=== PATIENT | female | born 1975 | race Caucasian/White ===

== ENCOUNTER 2024-05-13 01:08 | Inpatient (IN) | payer OTHER, SELFPAY ==
[2024-05-13] VITALS (17 sets, daily range): BP systolic 162–220; BP diastolic 68–120; PULSE 71–95; RESP 14–23; TEMP 36.3–36.8; O2SAT 96–100; BMI 57.3
--- NOTE | ~2024-05-13 | NM_ITS ---
EXAMINATION: NM lung vent and perfusion DATE: 05/14/2024 14:44 INDICATION: Shortness of breath. TECHNIQUE: 15.2 mCi Xenon-133 was given for ventilation images. 5.4 mCi Tc-99m MAA was administered i ntravenously for perfusion images. Scintigraphic images of the chest were obtained. COMPARISON: Chest single view 05/13/2024, chest CT 05/14/24 FINDINGS: The ventilation images are normal. The perfusion images demonstrate no defects. IMPRESSION: 1. Normal perfusion. Reviewed, dictated and finalized at location A. TH INSURANCE SPECIALIST IMPRESSION: 1. Normal perfusion.
--- NOTE | ~2024-05-13 | CT_ITS ---
EXAMINATION:CT diagnostic chest wo con DATE: 05/14/2024 14:43 INDICATION: Shortness of breath. TECHNIQUE: Computed tomography (CT) of the chest was performed without intravenous contrast. Automate d exposure control and iterative reconstruction technique were employed. The dose-length product (DLP ) was 1034.76 mGy-cm. COMPARISON: None. FINDINGS: There are patchy groundglass and airspace opacities in the upper lobes. A calcified left paris ng nodule is consistent with old granulomatous disease. There is a trace right pleural effusion. The heart size is normal. There is a trace pericardial effusion. There is moderate thoracic spondylosis. IMPRESSION: 1. Patchy groundglass and airspace opacities in the upper lobes, consistent with pneumonia. Reviewed, dictated and finalized at location A. TITATIVE ASSOCIATE IMPRESSION: 1. Patchy groundglass and airspace opacities in the upper lobes, consistent wit h pneumonia.
--- NOTE | ~2024-05-13 | US_ITS ---
EXAMINATION: US pelvic complete DATE: 05/15/2024 10:37 INDICATION: Vaginal bleeding. TECHNIQUE: Multiple transabdominal sonographic images of the pelvis were obtained. COMPARISON: None. FINDINGS: The uterus measures 11.3 x 6.3 x 7.9 cm. There is no free fluid in the pelvis. The endometrial comple x measures 20 mm in thickness. The right ovary measures 4.2 x 3.3 x 3.7 cm. There is a 3.9 cm cyst wi th single thin septation in right ovary, likely a follicular cyst. The left ovary is not visualized. IMPRESSION: 1. Thickened endometrial complex, which may be endometrial hyperplasia or polyp. Reviewed, dictated and finalized at location A. ER MACHINE HAND IMPRESSION: 1. Thickened endometrial complex, which may be endometrial hyperplasia or polyp .
--- NOTE | ~2024-05-13 | US_ITS ---
Renal-Bladder ultrasound Clinical History: Renal failure Technique: Real-time sonographic imaging of the kidneys and urinary bladder was performed. Findings: The right kidney measures 11.4 cm in length and the left kidney measures 11.8 cm. There is no hydronephrosis or renal calculus identified. Renal cortical echogenicity is within normal limits. No renal mass lesion is identified. The urinary bladder is moderately distended at the time of this exam. No intraluminal echoes are iden tified. No abnormal wall thickening is seen. Impression: Unremarkable ultrasound of the kidneys and urinary bladder. Reviewed, dictated and finalized at location . Impression: Unremarkable ultrasound of the kidneys and urinary bladder.
--- NOTE | ~2024-05-13 | US_ITS ---
EXAMINATION: US venous doppler [facility] DATE: 05/13/2024 09:11 INDICATION: Lower limb edema. TECHNIQUE: Grayscale ultrasound images without and with compression and Doppler ultrasound images of the bilateral lower extremity veins were obtained. COMPARISON: None. FINDINGS: The visualized portions of right common femoral vein, profunda (deep) femoral vein, femoral vein, pop liteal vein, peroneal veins, posterior tibial veins, and greater saphenous vein outflow are patent. The visualized portions of left common femoral vein, profunda femoral vein, femoral vein, popliteal v ein, peroneal veins, posterior tibial veins, and greater saphenous vein outflow are patent. IMPRESSION: 1. No deep venous thrombosis. Reviewed, dictated and finalized at location [] ING MACHINE OPERATOR
--- NOTE | ~2024-05-13 | XR_ITS ---
Portable chest x-ray Comparison: None Clinical History: Shortness of breath Findings: Questionable minimal haziness right upper lobe. Left lung clear. Cardiomediastinal silhou ette is mildly prominent. Bones and soft tissues are unremarkable. Impression: Questionable minimal haziness right upper lobe. Correlate for subtle pneumonia. Reviewed, dictated and finalized at [facility]. RVISORY FORESTER Impression: Questionable minimal haziness right upper lobe. Correlate for subtle pneumonia.
--- NOTE | ~2024-05-13 | US_ITS ---
EXAMINATION: US right upper quadrant DATE: 05/15/2024 10:31 INDICATION: Lower extremity edema. Shortness of breath. TECHNIQUE: Multiple grayscale and Doppler ultrasound images of the abdomen were obtained. COMPARISON: None FINDINGS: The visualized portions of the head, body, and tail of the pancreas are normal. The liver i s normal without focal lesion. No liver surface nodularity. There is normal flow in main portal vein. The gallbladder is normal in size. No gallstones or gallbladder wall thickening. The common duct is normal and measures 6 mm. IMPRESSION: 1. Normal right upper quadrant ultrasound. Reviewed, dictated and finalized at location A. CE CAPTAIN PRECINCT
--- NOTE | 2024-05-13 01:20 | ECG_ITS ---
Test Date: 2024-05-13 01:28:28 Measurements Intervals [place] Rate: 91 P: 33 CO: 218 QRS: 24 QRSD: 78 T: 93 QT: 327 QTc: 403 Interpretive Statements SINUS RHYTHM WITH FIRST DEGREE AV BLOCK LOW QRS VOLTAGE IN PRECORDIAL LEADS [QRS DEFLECTION < 1.0 mV IN CHEST LEADS] ANTEROSEPTAL MYOCARDIAL INFARCTION , PROBABLY OLD [40+ ms Q WAVE IN V1-V4] No previous ECG available for comparison Electronically Signed On 05-13-2024 13:58:56 RACK PRODUCTION WORKER by Elroy Díaz M.D.
--- NOTE | 2024-05-13 01:21 | ED_ITS ---
HPI - General Adult General Chief complaint: Shortness of Breath/Dyspnea Stated complaint: sob Time Seen by Provider: 05/13/24 01:14 History of Present Illness HPI narrative: Patient 49-year-old female who presents emergency department chief complaint of shortness of breath. The patient has prior history of chronic kidney disease wear CPAP at home the patient reports that she has been having increasing shortness of breath for the last few days and reports that she has had increasing peripheral edema. Patient is followed by Nephrology at [facility] was called the patient was on her home CPAP discontinued on CPAP EN route to the emergency department the patient was 92% on her home CPAP Related Data Home Medications ?Medication ?Instructions ?Recorded ?Confirmed ?Last Taken ?Type insulin aspart U-100 100 unit/mL 1 sliding scale dose subcut 02/26/21 02/26/21 Unknown History (3 mL) subcutaneous pen (Novolog USEASDIRECTD FlexPen U-100 Insulin aspart) insulin glargine 100 unit/mL (3 20 unit subcut QAM 02/26/21 02/26/21 Unknown History mL) subcutaneous pen (Lantus Solostar U-100 Insulin) insulin lispro 100 unit/mL 1 sliding scale dose subcut 02/26/21 02/26/21 Unknown History subcutaneous half-unit pen USEASDIRECTD (Humalog Thien KwikPen (U-100)) lisinopril 10 mg tablet 10 mg PO DAILY 02/26/21 02/26/21 Unknown History meclizine 25 mg tablet 25 mg PO TID 02/26/21 02/26/21 Unknown History metformin 500 mg tablet 500 mg PO BID 02/26/21 02/26/21 Unknown History multivitamin with iron (Daily 1 tablet PO DAILY 02/26/21 02/26/21 Unknown History Multiple Vitamins with Iron tablet) Allergies Allergy/AdvReac Type Severity Reaction Status Date / Time cephalexin Allergy Mild RASH Verified 05/13/24 01:27 ofloxacin Allergy Mild RASH Verified 05/13/24 01:27 ciprofloxacin Allergy Unknown Hives Verified 05/13/24 01:27 meperidine Allergy Unknown Hives Verified 05/13/24 01:27 morphine Allergy Unknown Hives Verified 05/13/24 01:27 albuterol AdvReac Migraine Verified 05/13/24 01:27 CIPROFLOXACIN HCL Allergy Mild RASH Uncoded 05/13/24 01:27 MEPERIDINE HCL Allergy Unknown Hives Uncoded 05/13/24 01:27 Review of Systems 2 Review of Systems: A 10 system review of systems was completed on the patient and is negative except for what is stated in the HPI. Nursing and ancillary documentation was reviewed. [facility] Past Medical History Medical History Vestibular migraine Family History Family History Other Family history of malignant neoplasm of male breast Social History Social History Smoking status: Never smoker Alcohol intake: never Exam 2 Narrative: GENERAL: Well-appearing, well-nourished, and in mild acute respiratory distress. HEAD: Normocephalic, atraumatic. EYES: PERRLA and EOMI. ENT: Nares clear, no rhinorrhea or epistaxis. Mucous membranes moist. NECK: Supple. CHEST: Clear to auscultation. No respiratory distress. HEART: Regular rate and rhythm. No murmur heard. Normal peripheral pulses. ABDOMEN: Soft, nontender, nondistended, normal active bowel sounds. EXTREMITIES: Normal range of motion. No edema. SKIN: Warm, dry, no rash. NEURO: No focal deficits. Alert and oriented x3. PSYCH: Normal mood and affect. Course Vital Signs Vital signs: Vital Signs Temperature 36.7 C 05/13/24 01:12 Pulse Rate 95 05/13/24 01:12 Respiratory Rate 23 H 05/13/24 01:12 Blood Pressure 220/120 H 05/13/24 01:12 Pulse Oximetry 100 05/13/24 01:12 Oxygen Delivery Room Air 05/13/24 01:12 Temperature 36.7 C 05/13/24 01:12 Pulse Rate 81 05/13/24 02:31 Respiratory Rate 17 05/13/24 02:31 Blood Pressure 186/82 H 05/13/24 02:31 Pulse Oximetry 100 05/13/24 02:31 Oxygen Delivery Room Air 05/13/24 01:12 Medical Decision Making MDM Narrative Medical decision making narrative: Differential diagnosis includes CHF, fluid overload, renal insufficiency, hypertensive urgency Chest x-ray showed cardiomegaly Patient was given IV Lasix in the emergency department patient did not want to do nitroglycerin Her blood pressure has improved from 220/120 down to 188/70 The patient's creatinine was 3.08 Potassium was 4.8 troponin was negative BNP was elevated The patient will be admitted to the hospitalist service Vital Signs Vital Signs: Vital Signs Temperature 36.7 C 05/13/24 01:12 Pulse Rate 95 05/13/24 01:12 Respiratory Rate 23 H 05/13/24 01:12 Blood Pressure 220/120 H 05/13/24 01:12 Pulse Oximetry 100 05/13/24 01:12 Oxygen Delivery Room Air 05/13/24 01:12 Temperature 36.7 C 05/13/24 01:12 Pulse Rate 81 05/13/24 02:31 Respiratory Rate 17 05/13/24 02:31 Blood Pressure 186/82 H 05/13/24 02:31 Pulse Oximetry 100 05/13/24 02:31 Oxygen Delivery Room Air 05/13/24 01:12 Lab Data 05/13/24 01:56 05/13/24 01:56 Labs: Lab Results 05/13/24 Range/Units 01:56 WBC 10.1 H (4.5-10.0) K/mm3 RBC 3.04 L (4.2-5.4) M/mm3 Hgb 9.5 L (12.0-15.0) g/dL Hct 28.5 L (37.0-47.0) % MCV 93.8 (80-100) fl MCH 31.3 (26-34) pg MCHC 33.3 (32-36) g/dl RDW 14.6 H (11.5-14.5) % Plt Count 275 (150-375) k/mm3 MPV 9.9 (7.4-10.4) fl Immature Gran % (Auto) 0.4 (0-0.5) % Neut % (Auto) 72.4 (45.5-73.1) % Lymph % (Auto) 11.9 L (18.3-44.2) % [place] % (Auto) 6.3 (2.6-8.5) % Eos % (Auto) 8.4 H (0-4.4) % Baso % (Auto) 0.6 (0.2-1.2) % Lymph # (Auto) 1.20 (0.9-3.2) K/mm3 [place] # (Auto) 0.6 (0.1-0.6) K/mm3 Eos # (Auto) 0.9 H (0-0.3) K/mm3 Baso # (Auto) 0.1 (0.0-0.1) K/mm3 Abs Immat Gran (auto) 0.04 H (0.00-0.031) K/mm3 Absolute Neuts (auto) 7.3 H (1.3-6.7) K/mm3 Absolute Nucleated RBC 0.000 (0.0-0.012) K/mm3 Nucleated RBC % 0.0 (0.0-0.2) % PT 12.7 (11.1-14.7) Seconds INR 0.9 APTT 24.1 (22.3-36.8) Seconds Sodium 136 L (137-145) mmol/L Potassium 4.8 (3.4-5.0) mmol/L Chloride 102 (98-107) mmol/L Carbon Dioxide 26 (22-30) mmol/L Anion Gap 8 (4-12) mmol/L BUN 45 H (7-17) mg/dL Creatinine 3.08 H (0.7-1.0) mg/dL Estim Creat Clear Calc 30 ml/min Estimated GFR 16 L (59 - ) Glucose 205 H (65-110) mg/dL Lactic Acid 0.6 L (0.7-2.0) mmol/L Calcium 10.1 (8.4-10.2) mg/dL Magnesium 2.3 (1.6-2.3) mg/dL Total Bilirubin 0.3 (0.2-1.3) mg/dL AST 23 (14-36) U/L ALT 21 (6-35) U/L Alkaline Phosphatase 57 (38-126) U/L Troponin I < 0.012 (0.000-0.034) ng/mL NT-Pro-B Natriuret Pep 1520 H (19.9-100) pg/mL Total Protein 7.0 (6.3-8.2) g/dL Albumin 3.3 L (3.5-5.1) g/dL Influenza A (RT-PCR) Negative (Negative) Influenza B (RT-PCR) Negative (Negative) RSV (RT-PCR) Negative (Negative) SARS-CoV-2 RNA (RT-PCR) Negative (Negative) ABG Data ABG results: 05/13/24 01:27 Puncture Site Right radial ABG pH 7.393 ABG pCO2 39.2 ABG pO2 155.8 H ABG PO2/FiO2 Ratio 1.56 ABG HCO3 23.4 ABG O2 Saturation 99.0 ABG O2 Content 13.9 L ABG Base Excess -1.4 A-a Gradient 518.0 Oxyhemoglobin 98.1 Total Hemoglobin 9.8 L O2 Delivery Device Other device O2 Liters/Min Not Reportable FiO2 100 Discharge Plan Discharge Clinical Impression: Edema, peripheral, Dyspnea, Chronic kidney disease Patient Disposition: Still a Patient Condition: Stable Patient Language: Solomon Islander Prescriptions: No Action metformin 500 mg tablet 500 mg PO BID meclizine 25 mg tablet 25 mg PO TID lisinopril 10 mg tablet 10 mg PO DAILY multivitamin with iron [Daily Multiple Vitamins/Iron] Tablet 1 tablet PO DAILY insulin lispro [Humalog Thien KwikPen U-100] 100 unit/mL insulin pen, half- unit 1 sliding scale dose subcut USEASDIRECTD insulin aspart U-100 [Novolog FlexPen U-100 Insulin] 100 unit/mL (3 mL) insulin pen 1 sliding scale dose subcut USEASDIRECTD Lantus Solostar U-100 Insulin 100 unit/mL (3 mL) insulin pen 20 unit subcut QAM hydrocodone-acetaminophen 10-325 mg tablet 1 tablet PO Q8H PRN (Reason: pain) Qty: 84 0RF Follow-up/Referrals: Rocky Spence MD [Primary Care Provider] - Time of Disposition: 03:32
[2024-05-13 01:43] LABS: Base Excess ABG -1.4 mEq/l (+/-2.0); Fractional Inspired Oxygen 100 %; HCO3 ABG 23.4 mEq/l (22.0-26.0); Oxygen Content ABG 13.9 %vol (16.0-22.0); Oxyhemoglobin 98.1 % THb (90.0-100.0); PCO2 ABG 39.2 mmHg (35.0-45.0); PO2 ABG 155.8 mmHg (80.0-100.0); PO2 FiO2 Ratio Arterial Blood 1.56 %; Total Hemoglobin 9.8 g/dL (12.0-18.0); pH ABG 7.393 (7.350-7.450)
--- OUTSIDE RECORDS SUMMARY | 2024-05-13 01:44 | XMS_ITS | Clinical Summary ---
Author Organization [facility] Address [address] [place] [address] Care Team Providers Care Glassware Maker Demonstrator Name Role Phone Teresita Cortez MD Primary Care Provider Source Comments [facility],non-[facility] Affiliates and Associated Physician Practices is amultiple site organization consisting of ambulatory clinics and hospital sitesin [place], [place], [place] and [place]. This disclosure is being madepursuant to the Care Everywhere program and may not contain all information available regarding this patient. Last updated 17.[facility] [employer] Allergies Active Allergy Reactions Criticality Noted Date Comments Cephalexin Rash Medium 12/27/2019 Ciprofloxacin Urticaria High 12/20/2011 Fluoxetine Unknown 12/27/2019 Meperidine Unknown High 12/20/2011 Low blood pressure Medications * Be aware that medications may not be up to date on this document. Alwaysverify current medications with the patient. Medication Sig Dispensed Refills Start Date End Date Status ALPRAZolam (XANAX) 2 MG tablet Take 2 mg by mouth once daily Active amLODIPine (NORVASC) 10 MG tablet Take 10 mg by mouth once daily 08/05/2019 Active meclizine (ANTIVERT) 25 MG tablet Take 50 mg by mouth once daily Active insulin lispro (HUMALOG;ADMELOG) 100 UNIT/ML pen Inject 1 Units subcutaneously 3 times daily Sliding scale 07/07/2019 Active Immunizations Name Administration Dates Next Due INFLUENZA VACCINE, TRIV. (AF LURIA, FLUZONE TRIVALENT; 6MO+) (IIV3) 03/10/2010 INFLUENZA VACCINE 12/06/2019 Td (Adult), 2 Lf Tetanus Toxoid, Adsorbed, Pf Social History Tobacco Use Types Packs/Day Years Used Date Smoking Tobacco: Never Smokeless Tobacco: Never Alcohol Use Standard Drinks/Week Comments Never 0 (1 standard drink = 0.6 oz pur e alcohol) AUDIT-C Answer Date Recorded Q1: How often do you have a drink containing alc ohol? Never 12/27/2019 Average Number of Drinks Not on file 020 Frequency of Binge Drinking Not on file 12/08 Sex and Gender Information Value Date Recorded Sex Assigned at Not on file Gender Identity Not on file Sexual Orientation Not on file Last Filed Vital Signs Vital Sign Reading Time Taken Comments Blood Pressure 175/90 12/27/2019 2:01 PM CDT Pulse 128 12/27/2019 2:01 PM CDT Temperature - - Respiratory Rate - - Oxygen Saturation - - Inhaled Oxygen Concentration - - Weight - - Height 162.6 cm (5' 4 ) 12/27/2019 2:01 PM CDT Body Mass Index - - Plan of Treatment Health Maintenance Due Date Last Done Comments COLOGUARD (AGES 45-75) - COL ON CA SCREENING 1974 COLON MONITORING 1974 COLONOSCOPY - COLON CA SCREENING 1974 CT COLONOGRAPHY - COLON CA SCREENING 1974 Colorectal Cancer Screening 1974 FIT - COLON CA SCREENING 1974 FLEX SIG - COLON CA SCREENING 1974 LIPID TESTING 1974 MAMMOGRAM 1974 MEDICARE AWV 12 MONTHS 1974 PAP SMEAR 1974 HIV SCREENING 1989 HEPATITIS C SCREENING 04/24/1992 HEPATITIS B VACCINE (1 of 3 - 19+ 3-dose series) 1993 DTAP/TDAP/TD VACCINES (1 - Tdap) 03/11/2004 03/10/2004 COVID-19 VACCINE ( - 2023-2 5 season) 2023 INFLUENZA VACCINE (#1) 2023 0, 03/10/2010 DEPRESSION SCREENING 03/10/2024 PNEUMOCOCCAL VACCINE 50+ (1 of 1 - PCV) 2024 ZOSTER VACCINE (1 of 2) 2024 HIB VACCINE Aged Out No longer eligi ble based on patient's age to complete this topic HPV VACCINE Aged Out No longer eligi ble based on patient's age to complete this topic MENINGOCOCCAL (Group B) VACCINE Aged Out No longer eligible b ased on patient's age to complete this topic MENINGOCOCCAL VACCINE Aged Out No constance shanna eligible based on patient's age to complete this topic PNEUMOCOCCAL VACCINE Aged Out No long er eligible based on patient's age to complete this topic Care Teams Glassware Maker Demonstrator Relationship Specialty Start Date End Date Teresita Cortez MD [address] [facility] [address] [place] [phone] PCP - General 05/07/19
--- OUTSIDE RECORDS SUMMARY | 2024-05-13 01:44 | XMS_ITS | Patient Health Summary ---
Author Organization [facility] Address [address] [facility] [place] [address] Care Team Providers Care Track Repairer Name Role Phone Teresita Cortez MD Primary Care Provider Note from [facility] [place],non-owned Affiliates and Associated Physician Practices is amultiple site organization consisting of ambulatory clinics and hospital sitesin [place], [place], [place] and [place]. This disclosure is being madepursuant to the Care Everywhere program and may not contain all information available regarding this patient. Last updated 17.[facility] Allergies * Cephalexin(Rash) -Medium Criticality * Ciprofloxacin(Urticaria) -High Criticality * Fluoxetine(Unknown) * Meperidine(Unknown) -High Criticality Medications * Be aware that medications may not be up to date on this document. Alwaysverify current medications with the patient. * ALPRAZolam (XANAX) 2 MG tablet Take 2 mg by mouth once daily * amLODIPine (NORVASC) 10 MG tablet(Started 08/05/2019) Take 10 mg by mouth once daily * meclizine (ANTIVERT) 25 MG tablet Take 50 mg by mouth once daily * insulin lispro (HUMALOG;ADMELOG) 100 UNIT/ML pen(Started 07/07/2019) Inject 1 Units subcutaneously 3 times daily Sliding scale Immunizations * INFLUENZA VACCINE, TRIV. (AFLURIA, FLUZONE TRIVALENT; 6MO+) (IIV3)(Given 03/10/2010) * INFLUENZA VACCINE(Given 12/06/2019) * Td (Adult), 2 Lf Tetanus Toxoid, Adsorbed, Pf(Given 03/10/2004) Social History Tobacco Use Types Packs/Day Years [...] PM CDT Body Mass Index - - Care Teams Track Repairer Relationship Specialty Start Date End Date Teresita Cortez MD [address] [place] [phone] PCP - General 05/07/19
--- OUTSIDE RECORDS SUMMARY | 2024-05-13 01:44 | XMS_ITS | Clinical Summary ---
Author Organization [facility] Address [address] [place] [address] Phone Care Team Providers Care Breakfast Host Name Role Phone Matias Warren MD Primary Care Provider [phone] Allergies Active Allergy Reactions Criticality Noted Date Comments Cephalexin Rash Medium Ciprofloxacin Hives High Ofloxacin Hives High 06/12/2017 Meperidine Unknown High Low blood pressure Morphine Hives Medium 06/12/2017 Medications ALPRAZolam 2 MG Tablet Take 2 mg by mouth 3 times daily as needed. Active amLODIPine (NORVASC) 10 MG Tablet Take 10 mg by mouth daily. Active insulin glargine (LANTUS SOLOSTAR) 100 UNIT/ML Solution Pen-injectorInd ications:Type 2 diabetes mellitus with hyperglycemia, with long-term current use of insulin (HCC) 40 Units by Subcutaneous route every evening. 15 mL 3 8 Active Insulin Pen Needle (PEN NEEDLES) 32G X 5 MM MiscIndications :Type 2 diabetes mellitus with hyperglycemia, with long-term current use of insulin (HCC) 4 times a day 400 Each 3 8 Active insulin aspart (NOVOLOG FLEXPEN) 100 UNIT/ML Solution Pen-injector 14 units before each meal. Correctional factor insulin of 1:20 if > 140 mg/dL. Up to 70 units per day 30 mL 3 8 Active meclizine (ANTIVERT) 25 MG Tablet Take 50 mg by mouth 3 times daily as needed. 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 Dizziness Hepatic steatosis Immunizations Immunization Administration Dates Next Due Influenza Vaccine greater than 3 yrs 03/10/2010 TD VACCINE 03/10/2004 Family History Medical History Relation Name Comments Chronic Obstructive Pulmonary Disease Mother High Cholesterol Mother Hypertension Mother Diabetes Paternal Aunt Diabetes Paternal Grandfather Diabetes Paternal Grandmother Diabetes Paternal Uncle Relation Name Status Comments Mother Paternal Aunt Paternal Grandfather Paternal Grandmother Paternal Uncle Social History Tobacco Use Types Packs/Day Years Used Date Smoking Tobacco: Former Cigarettes Q uit: 06/12/1997 Smokeless Tobacco: Never Tobacco Cessation:Counseling Given: No Alcohol Use Standard Drinks/Week Comments No 0 (1 standard drink = 0.6 oz pur e alcohol) Comments No Sex and Gender Information Value Date Recorded Sex Assigned at Not on file Legal Sex Female 11:21 PM CDT Gender Identity Not on file Sexual Orientation Not on file Last Filed Vital Signs Vital Sign Reading Time Taken Comments Blood Pressure 165/91 06/08/2018 8:21 PM CDT Pulse 99 06/08/2018 8:21 PM CDT Temperature 36.9 C (98.4 F) 06/08/2018 4:44 PM CDT Respiratory Rate 13 06/08/2018 8:21 PM CDT Oxygen Saturation 98% 06/08/2018 8:21 PM CDT Inhaled Oxygen Concentration - - Weight 136.5 kg (301 lb) 06/08/2018 4:44 PM CDT Height 162.6 cm (5' 4 ) 06/08/2018 4:44 PM CDT Body Mass Index 51.67 06/08/2018 4:44 PM CDT Plan of Treatment Health Maintenance Due Date Last Done Comments Diabetes: Eye Exam 1974 Diabetes: Foot Exam 1974 Hepatitis C Virus (HCV) Screening 1974 Mammogram 1974 Pneumococcal Immunization (50+ years) (1 of 2 - PCV) 1993 Pneumococcal Immunization Combined (1 of 2 - PCV) 1993 Pap Smear 1995 Cervical Cancer Screening (CCS) 2004 HPV/Cotest 2004 Discussion re Starting/Frequency of Mammograms 2014 Hepatitis B Immunization (2 of 3 - 19+ 3-dose series) 11/07/2014 10/10/2014 Diabetes: Hemoglobin A1c 04/17/2019 019, 06/12/2017, 02/08/2017, Additional history exists Colonoscopy 2019 Colorectal Cancer Screening 2019 Diabetes: Nephropathy Screening 10/16/2019 10/15/2018, 02/08/2017, 01/17/2017 Influenza Immunization (#1) 11/09/202312/09, 12/03/2019, 02/06/2018, Additional history exists SARS-COV-2 Immunization (2023- season) 2023 06/09/2020, 05/12/2020 Cologuard 2024 Immunochemical Fecal Occult Blood 2024 Zoster Immunization (1 of 2) 2024 Respiratory Syncytial Virus (RSV) Immunization (Adult) (1 - 1-dose 75+ series) 2049 TdaP Immunization Completed 10/10/2014 DTaP/Tdap/Td Immunization Discontinued 2014, 10/10/2014, 03/10/2004 Meningococcal Immunization (ACWY) Aged Out No longer eligible based on patient's age to complete this topic Rotavirus Immunization Aged Out No lo nger eligible based on patient's age to complete this topic Procedures Procedure Name Priority Date/Time Associated Diagnosis Comments CMP (COMPREHENSIVE METABOLIC PANEL) Routine 10/15/2018 HEMOGLOBIN, A1C Routine 10/15/2018 from Last 3 Months or Most Recently Relevant to Health Maintenance Results * HEMOGLOBIN, A1C (10/15/2018) HGB-A1C 11.3 % Blood specimen (specimen) 10/15/2018 us Kandace Trinh MD CHEMISTRY ORDERABLES Edited Resu lt - Final * CMP (COMPREHENSIVE METABOLIC PANEL) (10/15/2018) Blood specimen (specimen) us Too Al PAC CHEMISTRY ORDERABLES Final Re sult from Last 3 Months or Most Recently Relevant to Health Maintenance Insurance MEDICARE [facility] [place] Care Teams Breakfast Host Relationship Specialty Start Date End Date Matias Warren MD [address] [place] [phone] PCP - General Family Medicine 07/09/23
--- OUTSIDE RECORDS SUMMARY | 2024-05-13 01:44 | XMS_ITS | CONTINUITY OF CARE DOCUMENT ---
Author Name cecilia brooks Address Unknown Organization [facility] Address [address] [address] [address] [place] [address] Phone [phone] Care Team Providers Care Corncob Pipes Assembler Name Role Phone Hal Rivera MD Unavailable Hal Rivera MD Unavailable [phone] TOM LILLY MD Unavailable PROBLEMS Condition Status Date Provider Notes Hypoalbuminemia active Hal Rivera MD Venous insufficiency active Hal London Renal atrophy, left active Hal Rivera MD HTN WHITE COAT;LABS OK 2009 completed 2009 - Primo Hanks NP OBESITY active Primo Hanks NP DIABETES MELLITUS active Hal Rivera MD DYSPNEA ON EXERTION completed - Hal Rivera MD DIZZINESS;WILL BROWNE completed - Hal Rivera MD ANEMIA, IRON DEFICIENCY active Primo coe NP Hyperlipidemia;with high crp and low lpa active Leyla Ventimiglia DIRECTOR OF TRAINING DID NOT GIOVANNA STATIN TUBAL LIGATION STERILIZATION STATUS completed - Primo Hanks NP ANGINA PECTORIS;WILL NUCLEAR completed 201 - Primo Hanks NP SLEEP APNEA active Primo Hanks NP ANXIETY DISORDER completed - Primo Hanks NP UPPER RESPIRATORY INFECTION, ACUTE completed - Primo Hanks PROGRAM CHECKER Hypertension;neg duplex active Hal lundberg MD Anasarca completed - Hal Rivera MD Vitamin D deficiency active Primo Hanks PROGRAM CHECKER Screening active Hal Rivera MD Renal disease, chronic, mild;neg us and renal angio active Hal Rivera MD Microalbuminuria active Hal Rivera MD Folate-deficiency active Hal Rivera MD B12 deficiency active Hal Rivera MD covid 19;2020;HAD VACCINE active Hal sullivan MD Hypertriglyceridemia active Leyla Saulmiandrew DIRECTOR OF TRAINING VASCA[A NOT COVRED CAD;NEG CAROTID active Hal Rivera MD Elevated LFT's active Hal Rivera MD Diastolic CHF active Hal Rivera MD Pulmonary hypertension active Hal Rivera MD Chronic back pain active Leyla barlow DIRECTOR OF TRAINING ENCOUNTERS Date Type Provider Location Encounter Diag nosis 3 - 3 In-person encounter Office Visit Hal Rivera MD [facility] Hyperlipidemia;with high crp and low lpaHypertriglyceridemiaChronic back pain 1 - 1 In-person encounter Office Visit Hal Rivera MD [facility] Renal disease, chronic, mild;neg us and renal angioCAD;NEG CAROTIDElevated LFT'sDiastolic CHFPulmonary hypertension 8 - 8 In-person encounter Office Visit Hal Rivera MD [facility] 9 - 1 In-person encounter Office Visit Eyad Miramontes MD [facility] 0 - 0 In-person encounter Office Visit Hal Rivera MD [facility] ScreeningRenal disease, chronic, mild;neg us and renal angiocovid ;HAD VACCINE 1 - 1 In-person encounter Office Visit Hal Rivera MD [facility] DYSPNEA ON EXERTIONDIZZINESS;WILL WUAnasarcaRenal disease, chronic, mild;neg us and renal angioMicroalbuminuriaFolate-defici encyB12 deficiency 6 - 7 In-person encounter Office Visit Hal Rivera MD [facility] HTN WHITE COAT;LABS OK 2010OBESITYANEMIA, IRON DEFICIENCYTUBAL LIGATION STERILIZATION STATUSANGINA PECTORIS;WILL NUCLEARSLEEP APNEAANXIETY DISORDERUPPER RESPIRATORY INFECTION, ACUTEHypertension;neg duplexVitamin D deficiency 3 - 9 In-person encounter Office Visit [facility] Office 4 - 0 In-person encounter Office Visit [facility] Office 5 - 9 In-person encounter Office Visit [facility] Office 7 - 3 In-person encounter Office Visit [facility] Office 4 - 4 In-person encounter Office Visit Hal Rivera MD [facility] OBESITYDIABETES MELLITUSDYSPNEA ON EXERTIONANEMIA, IRON DEFICIENCYHyperlipidemia;with high crp and low lpaSLEEP APNEA VITAL SIGNS Date Observation Value Provider Body Mass Index (Ratio) 54.20 kg/m2 Luli Rivera MD respiratory rate E&M 16 /min Leyla Ventimiglia DIRECTOR OF TRAINING blood pressure, diastolic 80 mm[Hg] Or ryan [place] blood pressure, systolic 168 mm[Hg] Gaby dubois [place] oxygen saturation, oximetry 96 % [facility] pulse rate 85 /min [facility] blood pressure, cuff size regular Or ryan [place] weight E&M 315.8 [lb_av] Orryan Cohn height E&M 64 [in_i] [facility] Body Mass Index (Ratio) 54.92 kg/m2 Luli Rivera MD weight E&M 320 [lb_av] Hal London pulse rate 78 /min [place] blood pressure, diastolic 82 mm[Hg] An nnamdi blood pressure, systolic 163 mm[Hg] Any a oxygen saturation, oximetry 97 % [place] blood pressure, cuff size large An height E&M 64 [in_i] [place] Body Mass Index (Ratio) 53.38 kg/m2 Luli Rivera MD blood pressure, diastolic 56 mm[Hg] An nnamdi blood pressure, systolic 133 mm[Hg] Any a oxygen saturation, oximetry 97 % [place] weight E&M 311 [lb_av] [place] blood pressure, cuff size large An nnamdi height E&M 64 [in_i] [place] Body Mass Index (Ratio) 52.35 kg/m2 Lynn Miramontes MD blood pressure, diastolic 66 mm[Hg] An blood pressure, systolic 150 mm[Hg] Any a pulse rate 81 /min [place] oxygen saturation, oximetry 96 % [place] weight E&M 305 [lb_av] [place] blood pressure, cuff size large An height E&M 64 [in_i] [place] Body Mass Index (Ratio) 51.49 kg/m2 Luli dakotah Rivera MD blood pressure, cuff size large Ke rri Campbelluenegurpreet blood pressure, diastolic 76 mm[Hg] Ke rri Campbelluenenfelddiana blood pressure, systolic 130 mm[Hg] Callum Stock oxygen saturation, oximetry 98 % Gris Stock respiratory rate E&M 12 /min Gris beyelder pulse rate 84 /min Gris Laureano lder weight E&M 300 [lb_av] Gris Laureano er height E&M 64 [in_i] Gris Swartze [facility] Body Mass Index (Ratio) 54.41 kg/m2 Luli Rivera MD weight E&M 317 [lb_av] [place] Castillo blood pressure, diastolic 87 mm[Hg] Karissa nnamdi [place] blood pressure, systolic 169 mm[Hg] Roxanne toño Castillo pulse rate 79 /min [place] Castillo blood pressure, cuff size large An nnamdi Castillo height E&M 64 [in_i] [place] Castillo oxygen saturation, oximetry 96 % [place] Castillo Body Mass Index (Ratio) 56.98 kg/m2 Luli Rivera MD blood pressure, cuff size large Ri rogelio Adalid blood pressure, diastolic 95 mm[Hg] Ri rogelio [place] blood pressure, systolic 183 mm[Hg] Car hermelinda [place] oxygen saturation, oximetry 99 % Latoya [place] respiratory rate E&M 16 /min Becky [place] pulse rate 100 /min Latoya Cabral son weight E&M 332 [lb_av] Latoya Cabral son height E&M 64 [in_i] Latoya Cabral son blood pressure, diastolic 98 mm[Hg] Cate benson O'[place] blood pressure, systolic 137 mm[Hg] Lucrecia ribeiro O'Adam pulse rate 100 /min Chyna O'Adam oxygen saturation, oximetry 98 % Chyna Eng respiratory rate E&M 18 /min Chyna Mon'Adam weight E&M 308 [lb_av] Chyna Eng ALLERGIES Allergy Name Onset Date Reaction Criticality Status OZEMPIC (0.25 OR 0.5 MG/DOSE) Low Cr iticality active AVAPRO high k despe veltsa Low Criticality active KERENDIA highk despred veltsa High Criticalit y active DEMEROL High Criticality active MORPHINE SULFATE High Criticality ac tive CEPHALEXIN High Criticality active CIPRO High Criticality active RESULTS Date Observation Value Provider Reference Range Interpretation Location ferritin, serum 5 ng/mL [facility] 16-232 Low NT-pro BNP 185 [facility] Normal iron saturation percent, serum 14 % ([facility]) [facility] 16-45 Low iron binding capacity, total 321 MCG/DL ([facility]) [facility] 250-450 Normal iron, serum 46 ug/dL [facility] 40-190 Normal HISTORY OF MEDICATION USE Medication Status Instructions Dates Provider Indications Com ments Veltassa 16.8 gram powder in packet active Drink 1 packet dissolved in water once a day mix with 1/3 cup of water and drink daily Hal Gutierrez 25.2 gram powder in packet completed Drink 1 packet dissolved in water once a day mix with 1/3 cup of water and drink daily - Hal Cannon 2.5 mg/0.5 mL pen injector active Inject 1 pen injector subcutaneously once a week Leyla Ventimiglia DIRECTOR OF TRAINING torsemide 10 mg tablet active Leyla Ventimiglia DIRECTOR OF TRAINING torsemide 20 mg tablet active Leyla Ventimiglia DIRECTOR OF TRAINING Zetia 10 mg tablet active TAKE 1 TABLET BY MOUTH EVERY DAY Leyla Ventimiglia DIRECTOR OF TRAINING Soaanz 40 mg tablet active 1 tablet by mouth every morning Hal Rivera MD metolazone 2.5 mg tablet active as needed as directed TAKE 1 TABLET BY MOUTH EVERY DAY prn Leyla DAMICOP Pavelaglsonja Bello U-100 Insulin 100 unit/mL (3 mL) insulin pen active Hal Rivera MD Veltassa 25.2 gram powder in packet completed Drink 1 packet dissolved in water once a day mix with 1/3 cup of water and drink daily - Leylaharleen DAMICOP Vascepa 1 gram capsule completed Take 2 capsule by mouth twice a day - [facility] Nexlizet 180-10 mg tablet completed Take 1 tablet by mouth once a day - Leylaharleen [facility] DAMICOP Kerendia 20 mg tablet completed TAKE 1 TABLET BY MOUTH ONCE A DAY - Hal Rivera MD Ozempic 0.25 mg or 0.5 mg (2 mg/3 mL) pen injector completed Inject 0.5 mg subcutaneously once a week for 4 weeks, if tolerated may increase dose. - Leyla DAMICOP DIABETES MELLITUS Veltassa 16.8 gram powder in packet completed Drink 1 packet dissolved in water once a day mix with 1/3 cup of water and drink daily - Hal Rivear MD ezetimibe 10 mg tablet completed Take 1 tablet by mouth once a day - Hal Rivera MD Veltassa 8.4 gram powder in packet completed Drink 1 packet dissolved in water once a day mix with 1/3 cup of water and drink daily - Hal Rivera MD Kerendia 10 mg tablet completed Take 1 tablet by mouth once a day - Hal Rivera MD rosuvastatin 20 mg tablet completed Take 1 tablet by mouth once a day - Leyla Sarina [facility] aspirin 81 mg tablet,chewable active Take 1 tablet by mouth once a day Hal Rivera MD cyanocobalamin (vitamin B-12) 1,000 mcg capsule active TAKE 1 CAPSULE BY MOUTH EVERY DAY [facility] ergocalciferol (vitamin D2) 1,250 mcg (50,000 unit) capsule active Take 1 capsule by mouth once a week [facility] torsemide 40 mg tablet completed every morning - Hal Rivera MD folic acid 1 mg tablet active Hal Rivera MD Trulicity 1.5 mg/0.5 mL pen injector completed Inject 1 pen injector subcutaneously once a week - Hal Rivera MD DIABETES MELLITUS Trulicity 0.75 mg/0.5 mL pen injector completed Inject 1 pen injector subcutaneously once a week - Hal Rivera MD DIABETES MELLITUS iron 325 mg (65 mg iron) tablet active Take 1 tablet by mouth once a day Hal Rivera MD B Complex-Vitamin B12 tablet completed Take 1 tablet by mouth once a day - Hal Rivera MD rosuvastatin 20 mg tablet completed Take 1 tablet by mouth once a day - Hal Rivera MD ezetimibe 10 mg tablet completed Take 1 tablet by mouth once a day - Hal Rivera MD carvedilol 25 mg tablet active Take 1 tablet by mouth twice a day Hal Rivera MD Jardiance 25 mg tablet active TAKE 1 TABLET BY MOUTH ONCE DAILY [facility] Ozempic 0.25 mg or 0.5 mg(2 mg/1.5 mL) pen injector completed Inject 1/2 mg subcutaneously once a week - Karena Hopkins Kerendia 10 mg tablet completed Take 1 tablet by mouth once a day - Hal Rivera MD cholecalciferol (vitamin D3) 1,250 mcg (50,000 unit) capsule completed Take 1 capsule by mouth once a week - Hal Rivera MD diazepam 10 mg tablet active Primo Hanks NP irbesartan 300 mg tablet completed 1 tablet by mouth once a day - Hal Rivera MD amlodipine 10 mg tablet active 1 tablet by mouth once a day Primo Hanks NP Humalog KwikPen Insulin 100 unit/mL insulin pen completed INJECT 2-20 UNITS UNDER THE SKIN THREE TIMES A DAY BEFORE MEALS - Hal Rivera MD Lantus U-100 Insulin 100 unit/mL solution completed - Primo Hanks NP Zithromax Z-Boogie 250 mg tablet completed 2 tabs 1st day then one tab daily - Primo Hanks NP Feosol 325 mg (65 mg iron) tablet completed 1 tablet once a day - Primo Hanks NP Altace 5 mg capsule completed 1 tablet once a day - Primo Hanks NP PRAVACHOL 40 MG ORAL TABLET completed 1 tablet once a day - Primo Hanks NP ASPIRIN 81 MG ORAL TABLET completed 1 tablet once a day - Hal Rivera MD ANTIVERT 12.5 MG TABS completed 1 tablet by mouth once a day - Hal Rivera MD GNP WOMENS ONE DAILY ORAL TABLET completed 1 tablet by mouth once a day - Primo Hanks NP SOCIAL HISTORY Date Observation Value Provider personal history of marijuana use no Leyla Ventimiglia [facility] drug use no Leyla Ventimig desiree [facility] alcohol use no Leyla Ventimig desiree [facility] smoking status Former smoker Leyla Venti miglia [facility] smoking status Former smoker [place] Stoll s smoking status Former smoker [place] Stoll s number of grandchildren Eyad Leon NP smoking status Former smoker [place] Stoll s social history E&M S moking History: Estrella jarvis is a former smoker. Hal Rivera MD social history reviewed E&M revi ewed - no changes required Hal Rivera MD physical exercise, frequency, days per week no [place] Castillo caffeine use, averag e drinks per day no [place] Castillo smoking status Former smoker [place] Stoll s social history reviewed E&M revi ewed - no changes required Primo Hanks NP social history E&M S moking History: Estrella jarvis is a former smoker. Primo Hanks NP physical exercise, frequency, days per week no Latoya Cordoba caffeine use, averag e drinks per day no Latoya [place] smoking status Former smoker Latoya Chapin munoz smoking status former smoker Gris Harden [facility] physical exercise, frequency, days per week no [facility] caffeine use, averag e drinks per day no [facility] alcohol use, average drinks per day none [facility] number of years as a smoker less than 10 years [facility] smoking status Quit [facility] FUNCTIONAL STATUS Date Observation Value Provider HRA, CV Assess/Plan, Angina (inactive) Management Plan continue current therapy Leyla SCHAFER HRA, CV Assess/Plan, Angina (inactive) Management Plan continue current therapy Hal Rivera MD HRA, CV Assess/Plan, Angina (inactive) Management Plan continue current therapy Hal Rivera MD HRA, CV Assess/Plan, Angina (inactive) Management Plan antianginal therapy Angela Leon NP HRA, CV Assess/Plan, Angina (inactive) Management Plan continue current therapy Primo Hanks NP MENTAL STATUS Date Observation Value Provider assessment of judgme nt and insight E&M Alert and oriented to time, place and person. Mood and affect are normal. Hal Rivera MD INSURANCE PROVIDERS Payer name Policy type / Coverage type [employer] party ID [facility] [id number] ADVANCE DIRECTIVES Name Date DISCUSSED - NO DECISION MADE TREATMENT PLAN Date Name Performer [id number],C,s core 54, neg stres in 05 and nuc in 11 Hal Rivera MD [id number],C,34 Hal sullivan MD [id number],S, 9 .4 Hal Rivera MD [id number],S, Hal lundberg MD [id number],S, 3 70 Hal Rivera MD [id number],B, Hal lundberg MD [id number],B, Hal lundberg MD [id number],C,N EEDS COLONS S he is anemic and has a hx of iron deficiency. Her anemia is microcytic and I suspect that she is iron deficient again given her recent vegetarian diet. I will check an iron panel and she will take PO iron for now as well as vitamin B12. She may need IV iron infusions as well. Hal Rivera MD [id number],S,n eg echo, neg aaa n eg pro, heg holter, neg brai ct n eg stres 05, neg carotdi duples n eg nuc 11 Hal Rivera MD [id number],B,3 6 2 5 Hal Rivera MD [id number],S, H er updated medication list for this problem includes: Aspirin 81 Mg Tablet,chewable (Aspirin) ..... Take 1 tablet by mouth once a day Carvedilol 25 Mg Tablet (Carvedilol) ..... Take 1 tablet by mouth twice a day Torsemide 5 Mg Tablet (Torsemide) Irbesartan 300 Mg Tablet (Irbesartan) ..... 1 tablet by mouth once a day Amlodipine 10 Mg Tablet (Amlodipine) ..... 1 tablet by mouth once a day BP today: 130/76 P rior BP: 169/87 (11/07/2022) Hal Rivera MD [id number],S, Hal lundberg MD [id number],S, C ontinue CPAP use. Hal Rivera MD [id number],S, Hal Serot toño MEMBR[place] [id number],S, Hal Serot a [id number],S,370 Hal luis MD [id number],S,some day will need col Hal Rivera MD [id number],S,9.4 Hal luis MD [id number],S,25 Hal sullivan MD [id number],B, n m pro Hal Rivera MD [id number],S, n m pro Hal Nicole MEMBRENO [id number],S,n eg pro, heg holter, neg brai ct n eg stres 05, neg carotdi duples n eg nuc 11 Hal Rivera MD [id number],C,nm pro Hal Rivera MD [id number],C,neg stres 05, neg carotdi duples Hal Rivera MD [id number],C,Continue CPAP use. Primo Duboiscarolin PROGRAM CHECKER [id number],C,T he patient has severe vitamin D deficiency. I will start vitamin D 50,000 units per week. Primo Roncarolin PROGRAM CHECKER [id number],C,S he is anemic and has a hx of iron deficiency. Her anemia is microcytic and I suspect that she is iron deficient again given her recent vegetarian diet. I will check an iron panel and she will take PO iron for now as well as vitamin B12. She may need IV iron infusions as well. Primo Hanks PROGRAM CHECKER [id number],C,N ot well controlled. She did not tolerate Metformin in the past due to GI issues. I will add Jardiance 25mg qday as noted above and I will also add Ozempic. She will hopefully be able to decrease and eventually with further medication adjustment, come off insulin entirely. Primo Hanks PROGRAM CHECKER [id number],C,L ipids are significantly elevated. I will add Rosuvastatin 20mg qday and Ezetimibe 10mg qday. Her lipids will also see improvement with better glycemic control. Primo Hanks PROGRAM CHECKER [id number],C,B lood pressure is elevated. I will add Carvedilol 12.5mg BID. I will continue Amlodipine and Irbesartan without change. Diuresis will also improve her blood pressure with Jardiance and Kerendia. I will stop Clonidine as it is short acting and causes rebound hypertension. She will be better served with longer acting medications that are taken routinely. Primo Hanks PROGRAM CHECKER [id number],C,T he patient has generalized anasarca and significant dyspnea on exertion. She had a recent echo that showed normal LV systolic function and mild MR, TR, and pulm htn, all of which I suspect will improve with blood pressure and volume overload improvement. Her albumin is low likely related to vegetarian diet and contributing to her issues. Her diet was purely for weight loss and she is going to resume eating chicken and fish. She has mild CKD as well based on her labs. I am going to check a CXR and I will check a proBNP and a UACR in addition to her recent labs. I am going to add Jardiance 25mg qday and Kerendia 10m qday. Primo Hanks PROGRAM CHECKER Cardiology:patient h as chronic back that limits her ability to walk more than 50 feet at a time. She has now purchased a scOneMorePalletter d/t these mobility issues H ave recommended PT for back pain along with gait and balance training [facility] Cardiology:continue with yelitza sarah stockings [facility] Cardiology:Last Hgb A1C 8% in 08/2023 S he is on insulin alone. Did not tolerate ozempic d/t GI issues S he would benefit from GLP-1 to improve glycemic control and weight management T he following medications were removed from the medication list: Ozempic 0.25 Mg Or 0.5 Mg (2 Mg/3 Ml) Pen Injector (Semaglutide) ..... Inject 0.5 mg subcutaneously once a week for 4 weeks, if tolerated may increase dose. Her updated medication list for this problem includes: Jardiance 25 Mg Tablet (Empagliflozin) ..... Take 1 tablet by mouth once daily Basaglar Kwikpen U-100 Insulin 100 Unit/ml (3 Ml) Insulin Pen (Insulin glargine) Aspirin 81 Mg Tablet,chewable (Aspirin) ..... Take 1 tablet by mouth once a day [facility] Cardiology:The patie nt is using CPAP on a regular basis. The patient has been benefiting from therapy and should continue use. [facility] Cardiology:Remains o n Jardiance A ppears compensated c hronic SOB in setting of obesity w ill update echo prior to next visit H er updated medication list for this problem includes: Torsemide 10 Mg Tablet (Torsemide) Torsemide 20 Mg Tablet (Torsemide) Metolazone 2.5 Mg Tablet (Metolazone) ..... As needed as directed take 1 tablet by mouth every day prn Soaanz 40 Mg Tablet (Torsemide) ..... 1 tablet by mouth every morning Aspirin 81 Mg Tablet,chewable (Aspirin) ..... Take 1 tablet by mouth once a day Carvedilol 25 Mg Tablet (Carvedilol) ..... Take 1 tablet by mouth twice a day Amlodipine 10 Mg Tablet (Amlodipine) ..... 1 tablet by mouth once a day [facility] Cardiology:LDL 112 p atient does not want statin based on intolerance H as been prescribed nexlizet but insurance did not approve. W ill begin zetia T he following medications were removed from the medication list: Vascepa 1 Gram Capsule (Icosapent ethyl) ..... Take 2 capsule by mouth twice a day Rosuvastatin 20 Mg Tablet (Rosuvastatin) ..... Take 1 tablet by mouth once a day Nexlizet 180-10 Mg Tablet (Bempedoic acid-ezetimibe) ..... Take 1 tablet by mouth once a day Her updated medication list for this problem includes: Zetia 10 Mg Tablet (Ezetimibe) ..... Take 1 tablet by mouth every day [facility] Cardiology:BP 168/80 above goal, reports better controlled at 135/70 at home W ill have her monitor and bring readings to her next visit H er updated medication list for this problem includes: Torsemide 10 Mg Tablet (Torsemide) Torsemide 20 Mg Tablet (Torsemide) Metolazone 2.5 Mg Tablet (Metolazone) ..... As needed as directed take 1 tablet by mouth every day prn Soaanz 40 Mg Tablet (Torsemide) ..... 1 tablet by mouth every morning Aspirin 81 Mg Tablet,chewable (Aspirin) ..... Take 1 tablet by mouth once a day Carvedilol 25 Mg Tablet (Carvedilol) ..... Take 1 tablet by mouth twice a day Amlodipine 10 Mg Tablet (Amlodipine) ..... 1 tablet by mouth once a day [facility] Cardiology:on iron and last hgb was 8.6 [facility] Cardiology:on replacement therap y [facility] :neg hep panel Hal Rivera MD :27 Hal Rivera MD Cardiology Hal Rivera MD Cardiology Hal Rivera MD Cardiology: s core 54, neg stres in 05 and nuc in 11 Hal Rivera MD Cardiology: s core 54, neg stres in 05 and nuc in 11 Hal Rivera MD Cardiology:8.5 Hal Rivera MD Cardiology:52 Hal Rivera MD Cardiology:1200 e f 62 Hal Rivera MD Cardiology Hal Rivera MD Cardiology:high ddd and negvq , neg aaa , heg holter, neg brai ct , neg carotdi duples Hal Rivera MD Cardiology Hal Rivera MD Cardiology: N EEDS COLONS Hal Rivera MD Cardiology: 3 12 Hal Rivera MD Cardiology:34 2 7 Hal Rivera MD :27 Hal Rivera MD NEEDS FOALTE LEVEL :30 Hal luis MD :312 Hal Rivera MD :39 Hal Rivera MD Cardiology: C ontinue CPAP use. Hal Rivera MD Cardiology: 3 70 Hal Rivera MD Cardiology Hla Rivera MD Cardiology Hal Rivera MD Cardiology Hal Rivera MD Cardiology:9.4 Hal Rivera MD Cardiology Hal Rivera MD Cardiology: R enal US showed Small left kidney without evidence of nephrolithiasis, hydronephrosis, or solid renal mass. R enal duplex: no renal artery stenosis bilaterally E GFR 34, cr 1.8 CT vs angiogram CO2, to avoid/raduce dye. Explained risks and benefits. p atient would like to proceed with renal angiogram. with CO2 Hal Rivera MD Cardiology: g fr 34 Hal Rivera MD Cardiology: s welling improved with toresemide, still some present. Reports mild pain. V enous duplex shows severe venous insufficiency bilaterally r ecommeded to wear compression stockings and ambulate more Hal Rivera MD Cardiology: s core 54, neg stres in 05 and nuc in 11 Hal Rivera MD Cardiology Hal Rivera MD Cardiology: C ontinue CPAP use. Angelajose Lopezaren PROGRAM CHECKER Cardiology:CRP 6.3 H er updated medication list for this problem includes: Ezetimibe 10 Mg Tablet (Ezetimibe) ..... Take 1 tablet by mouth once a day Rosuvastatin 20 Mg Tablet (Rosuvastatin) ..... Take 1 tablet by mouth once a day Angela Johnluri PROGRAM CHECKER Cardiology: N ARTI LESTERInes S he is anemic and has a hx of iron deficiency. Her anemia is microcytic and I suspect that she is iron deficient again given her recent vegetarian diet. she will take PO iron for now as well as vitamin B12. She may need IV iron infusions as well. planning to consult with torts law professor [facility] Gwenri PROGRAM CHECKER Cardiology: 9 .4 N ot controlled well. Was on ozempic, which controlled her sugars well per pt. s topped due to impaired renal function e ncoraged to resume Angela Johnluri PROGRAM CHECKER Cardiology: 3 [facility]: H er updated medication list for this problem includes: Ezetimibe 10 Mg Tablet (Ezetimibe) ..... Take 1 tablet by mouth once a day Rosuvastatin 20 Mg Tablet (Rosuvastatin) ..... Take 1 tablet by mouth once a day Angela Nalluri PROGRAM CHECKER Cardiology:swelling improved with toresemide, still some present. Reports mild pain. V enous duplex shows severe venous insufficiency bilaterally r ecommeded to wear compression stockings and ambulate more [facility] Johnluri PROGRAM CHECKER Cardiology: s core 54, neg stres in 05 and nuc in 11 [facility] Cardiology:Renal US showed Small left kidney without evidence of nephrolithiasis, hydronephrosis, or solid renal mass. R enal duplex: no renal artery stenosis bilaterally E GFR 34, cr 1.8 C T vs angiogram CO2, to avoid/raduce dye. Explained risks and benefits. p atient would like to proceed with renal angiogram. with CO2 Angela Nalluri PROGRAM CHECKER Cardiology: g fr 34 Angelajose Lopezluri PROGRAM CHECKER :score 54, neg stres in 05 and n uc in 11 Hal Rivera MD :34 Hal Rivera MD Cardiology: 9 .4 Hal Rivera MD Cardiology Hal Rivera MD Cardiology: 3 70 Hal Rivera MD Cardiology Hal Rivera MD Cardiology Hal Rivera MD Cardiology:NEEDS COL ONS S he is anemic and has a hx of iron deficiency. Her anemia is microcytic and I suspect that she is iron deficient again given her recent vegetarian diet. I will check an iron panel and she will take PO iron for now as well as vitamin B12. She may need IV iron infusions as well. Hal Rivera MD Cardiology:neg echo, neg aaa n eg pro, heg holter, neg brai ct n eg stres 05, neg carotdi duples n eg nuc 11 Hal Rivera MD Cardiology:36 2 5 Hal Rivera MD Cardiology: H er updated medication list for this problem includes: Aspirin 81 Mg Tablet,chewable (Aspirin) ..... Take 1 tablet by mouth once a day Carvedilol 25 Mg Tablet (Carvedilol) ..... Take 1 tablet by mouth twice a day Torsemide 5 Mg Tablet (Torsemide) Irbesartan 300 Mg Tablet (Irbesartan) ..... 1 tablet by mouth once a day Amlodipine 10 Mg Tablet (Amlodipine) ..... 1 tablet by mouth once a day BP today: 130/76 P rior BP: 169/87 (11/07/2022) Hal Rivera MD Cardiology Hal Rivera MD Cardiology: C ontinue CPAP use. Hal Rivera MD Cardiology Hal Rivera MD Cardiology Hal Rivera MD Cardiology:370 Hal Rivera MD Cardiology:some day will need co l Hal Rivera MD Cardiology:9.4 Hal Rivera MD Cardiology:25 Hal Rivera MD Cardiology: n m pro Hal Rivera MD Cardiology: n m pro Hal Rivera MD Cardiology:neg pro, heg holter, neg brai ct n eg stres 05, neg tavotabdelrahman galvan n eg nuc 11 Hal Rivera MD lmom about iron infusions:nm pro Hal Rivera MD lmom about iron infu sions:neg stres 05, neg carotdi eliasles Hal Rivera MD Cardiology:Continue CPAP use. Sushila Hanks NP Cardiology:The patie nt has severe vitamin D deficiency. I will start vitamin D 50,000 units per week. Primo Hanks NP Cardiology:She is an emic and has a hx of iron deficiency. Her anemia is microcytic and I suspect that she is iron deficient again given her recent vegetarian diet. I will check an iron panel and she will take PO iron for now as well as vitamin B12. She may need IV iron infusions as well. Primo Hanks NP Cardiology:Not well controlled. She did not tolerate Metformin in the past due to GI issues. I will add Jardiance 25mg qday as noted above and I will also add Ozempic. She will hopefully be able to decrease and eventually with further medication adjustment, come off insulin entirely. Primo Hanks NP Cardiology:Lipids ar e significantly elevated. I will add Rosuvastatin 20mg qday and Ezetimibe 10mg qday. Her lipids will also see improvement with better glycemic control. Primo Hanks NP Cardiology:Blood pre ssure is elevated. I will add Carvedilol 12.5mg BID. I will continue Amlodipine and Irbesartan without change. Diuresis will also improve her blood pressure with Jardiance and Kerendia. I will stop Clonidine as it is short acting and causes rebound hypertension. She will be better served with longer acting medications that are taken routinely. Primo Hanks PROGRAM CHECKER Cardiology:The patie nt has generalized anasarca and significant dyspnea on exertion. She had a recent echo that showed normal LV systolic function and mild MR, TR, and pulm htn, all of which I suspect will improve with blood pressure and volume overload improvement. Her albumin is low likely related to vegetarian diet and contributing to her issues. Her diet was purely for weight loss and she is going to resume eating chicken and fish. She has mild CKD as well based on her labs. I am going to check a CXR and I will check a proBNP and a UACR in addition to her recent labs. I am going to add Jardiance 25mg qday and Kerendia 10m qday. Primo Hanks NP follow up Hal Rivera MD follow up: H er updated medication list for this problem includes: Aspirin 81 Mg Tabs (Aspirin) ..... One tab. daily Altace 5 Mg Caps (Ramipril) ..... One tab. daily Hal Rivera MD follow up: H er updated medication list for this problem includes: Pravachol 40 Mg Tabs (Pravastatin sodium) ..... One tab. daily Orders: C omplete Echo (CPT-58273) H olter Monitor 24 Hr (CPT-41011) S pirometry (CPT-25785) S tress Test - Adenosine (47767) Hal Rivera MD follow up: O rders: C omplete Echo (CPT-09618) H olter Monitor 24 Hr (CPT-25014) S pirometry (CPT-49755) S tress Test - Adenosine (46094) Hal Rivera MD follow up: H er updated medication list for this problem includes: Aspirin 81 Mg Tabs (Aspirin) ..... One tab. daily Altace 5 Mg Caps (Ramipril) ..... One tab. daily Orders: C omplete Echo (CPT-08555) H olter Monitor 24 Hr (CPT-58363) S pirometry (CPT-37304) S tress Test - Adenosine (00881) Hal Rivera MD follow up: H er updated medication list for this problem includes: Aspirin 81 Mg Tabs (Aspirin) ..... One tab. daily Altace 5 Mg Caps (Ramipril) ..... One tab. daily Orders: C omplete Echo (CPT-97183) H olter Monitor 24 Hr (CPT-05248) S pirometry (CPT-94237) S tress Test - Adenosine (75942) Hal Rivera MD follow up: H er updated medication list for this problem includes: Aspirin 81 Mg Tabs (Aspirin) ..... One tab. daily Pravachol 40 Mg Tabs (Pravastatin sodium) ..... One tab. daily Altace 5 Mg Caps (Ramipril) ..... One tab. daily Orders: C omplete Echo (CPT-89468) H olter Monitor 24 Hr (CPT-25905) S pirometry (CPT-34875) S tress Test - Adenosine (37349) Hal Rivera MD follow up: H er updated medication list for this problem includes: Aspirin 81 Mg Tabs (Aspirin) ..... One tab. daily Orders: C omplete Echo (CPT-68498) H olter Monitor 24 Hr (CPT-18898) S pirometry (CPT-00586) S tress Test - Adenosine (90918) Hal Rivera MD follow up: O rders: C omplete Echo (CPT-25909) H olter Monitor 24 Hr (CPT-33249) S pirometry (CPT-59190) S tress Test - Adenosine (44626) Hal Rivera MD follow up: O rders: C omplete Echo (CPT-45535) H olter Monitor 24 Hr (CPT-47632) S pirometry (CPT-72445) S tress Test - Adenosine (31605) Hal Rivera MD follow up Hal Rivera MD follow up Hal Rivera MD Date Name Abdominal US Complete Echo ZOLL HFMS (HrtFailrM ngmtSys) Abdominal US Complete Echo HEPATITIS PANEL PROTHROMBIN TIME WIT H INR LIPID PANEL CBC (INCLUDES DIFF/P LT) BASIC METABOLIC PANE L W/EGFR PROTHROMBIN TIME WIT H INR LIPID PANEL CBC (INCLUDES DIFF/P LT) BASIC METABOLIC PANE L W/EGFR PROTHROMBIN TIME WIT H INR LIPID PANEL CBC (INCLUDES DIFF/P LT) BASIC METABOLIC PANE L W/EGFR LIPID PANEL BASIC METABOLIC PANE L W/EGFR Venous Doppler Bilat eral LE - Reflux CRP, high sensitivit y Lipoprotein (a) Stress Cardiac PET-C T CT, Coronary Calcium Score Complete Echo Kidney Ultrasound Renal Artery Duplex CXR- PA/Lat Holter Monitor 48 hr IRON AND TOTAL IRON BINDING CAPACITY FERRITIN Microalb/Creatinine Urine, Random PROBNP, N TERMINAL Stress Test - Adenos ine Spirometry Holter Monitor 24 Hr Complete Echo HISTORY OF PROCEDURES Procedure Date Procedure Name Provider Procedure Notes S tatus EKG Hal Rivera MD complete d CT- Coronary CA score aHl Rivera MD completed EKG Hal Rivera MD complete d ePrescribe - Check t his box if eRx is used TD GREER MD completed EKG Hal Rivera MD complete d
--- OUTSIDE RECORDS SUMMARY | 2024-05-13 01:44 | XMS_ITS | Referral Summary ---
Author Organization [facility] Address [address] [place] [address] Care Team Providers Care Marketing Communications Specialist Name Role Phone Teresita Cortez MD Primary Care Provider Source Comments [facility] Affiliates and Associated Physician Practices is amultiple site organization consisting of ambulatory clinics and hospital sitesin [place], [place], [place] and [place]. This disclosure is being madepursuant to the Care Everywhere program and may not contain all information available regarding this patient. Last updated 17.[facility] Allergies Active Allergy Reactions Criticality Noted Date [...] Mass Index - - Plan of Treatment Not on file Care Teams Marketing Communications Specialist Relationship Specialty Start Date End Date Teresita Cortez MD [address] [place] [address] [address] [place] [address] PCP - General 05/07/19
--- OUTSIDE RECORDS SUMMARY | 2024-05-13 01:44 | XMS_ITS | Referral Summary ---
Author Organization [facility] Address [address] [place] [id number] Care Team Providers Care Pharmacy Graduate Intern Name Role Phone Matias Warren MD Primary Care Provider + [phone] Allergies Active Allergy Reactions Criticality Noted Date Comments Cephalexin Hives Medium 07/26/2014 Ciprofloxacin Dapagliflozin Propanediol Other (See comments) Low 12/24/2021 Fluoxetine Meperidine Morphine Medications amLODIPine (NORVASC) 10 mg tablet take 1 tablet by oral route every day 0 0 6 Active insulin syringe-needle U-100 (INSULIN SYRINGE) 1/2 mL 30 gauge x 07/23 syringe use with insulin x1/day 1 Box 3 5 Active cyanocobalamin (vitamin B-12) 1,000 mcg tablet Take 1 tablet (1,000 mcg total) by mouth daily 3 Active folic acid (FOLVITE) 400 mcg tablet Take 1 tablet (400 mcg total) by mouth daily Active ascorbic acid, vitamin C, 500 mg capsule Take 500 mg by mouth daily Active torsemide (DEMADEX) 5 mg tablet Take 8 tablets (40 mg total) by mouth daily 3 Active Veltassa packet Take 1 packet (16.8 g total) by mouth daily with lunch 4 Active aspirin 81 mg enteric coated tablet Take 1 tablet (81 mg total) by mouth nightly Active Jardiance 25 mg tablet Take 1 tablet (25 mg total) by mouth nightly 4 Active ergocalciferol (VITAMIN D) 50,000 unit capsule Take 1 capsule (50,000 Units total) by mouth once a week On Friday Active Ozempic 0.25 mg or 0.5 mg (2 mg/3 mL) pen injector injection Inject 0.25 mg as directed once a week Friday Active blood-glucose transmitter (Dexcom G6 Transmitter) device Dexcom G6 Transmitter Miscellaneous QTY: 1 each Days: 30 Refills: 2 Written: 03/03/23 Patient Instructions: USE DIRECTED TO CHECK BLOOD SUGAR 3 Active Dexcom G6 Transmitter device USE DIRECTED TO CHECK BLOOD SUGAR 4 Active Dexcom G6 Sensor device as directed 4 Active ferrous sulfate 325 mg (65 mg of elemental iron) tablet Take 1 tablet (325 mg total) by mouth daily with breakfast Active Kerendia 10 mg tablet 20 mg nightly 3 Active guaiFENesin ER (MUCINEX) 600 mg 12 hr tablet Take 1 tablet (600 mg total) by mouth 2 (two) times a day for 3 days 6 tablet 4 Active metOLazone (ZAROXOLYN) 2.5 mg tablet Take 2 tablets (5 mg total) by mouth daily 4 Active insulin lispro (HumaLOG, ADMELOG) 100 unit/mL pen for injection Inject 15 Units under the skin 3 (three) times a day 4 Active BASAGLAR 100 unit/mL (3 mL) pen for injection Inject 20 Units under the skin 2 (two) times a day 4 Active Active Problems Problem Noted Date Diagnosed Date Sepsis, due to unspecified o rganism, unspecified whether acute organ dysfunction present 07/20/2023 Social History Tobacco Use Types Packs/Day Years Used Date Smoking Tobacco: Former Cigarettes - 2015 Smokeless Tobacco: Never Tobacco Cessation:Counseling Given: Not Answered Alcohol Use Standard Drinks/Week Comments No 0 (1 standard drink = 0.6 oz pur e alcohol) [facility] Utilities Answer Date Recorded In the past 12 months has [employer], oil, or water [employer] threatened to shut off services in your home? No 07/23/2023 Social Connection and Isolat ion Panel [NHANES] Answer Date Recorded In a typical week, how many times do you talk on the phone with family, friends, or neighbors? More than three times a week 07/23/2023 How often do you get togethe r with friends or relatives? Once a week 07/23/2023 How often do you attend chur ch or alevism services? Never 07/23/2023 Do you belong to any clubs o r organizations such as hindu groups, unions, fraternal or athletic groups, or school groups? No 07/23/2023 How often do you attend meet ings of the clubs or organizations you belong to? Never 07/23/2023 Are you , , di vorced, , never , or living with a partner? 07/23/2023 Overall Financial Resource Strain (CARDIA) Answe r Date Recorded How hard is it for you to pa y for the very basics like food, housing, medical care, and heating? Not hard at all 07/23/2023 Hunger Vital Sign Answer Date Recorded Within the past 12 months, y ou worried that your food would run out before you got the money to buy more. Never true 07/23/19 24 Within the past 12 months, t he food you bought just didn't last and you didn't have money to get more. Never true 07/23/2023 PRAPARE - Transportation Answer Date Re corded In the past 12 months, has l ack of transportation kept you from medical appointments or from getting medications? No 07/08 In the past 12 months, has l ack of transportation kept you from meetings, work, or from getting things needed for daily living? No 07/23/2023 Housing Stability Vital Sign Answer Christofer e Recorded In the last 12 months, was t here a time when you were not able to pay the mortgage or rent on time? No 07/23/2023 In the last 12 months, how many places have you lived? 1 07/23/2023 In the last 12 months, was t here a time when you did not have a steady place to sleep or slept in a custodial (including now)? No 07/23/2023 Personal Safety Answer Date Recorded Have you ever been in or are you currently in a harmful physical or emotional relationship or is someone making you feel afraid or unsafe? Denies 07/21/2023 Education Answer Date Recorded What is the highest level of school you have completed or the highest degree you have received? Associate degree: occupational, technical, or vocational program 07/23/2023 Comments No Sex and Gender Information Value Date Recorded Sex Assigned at Not on file Legal Sex Female 11:36 AM [employer] Gender Identity Not on file Sexual Orientation Not on file Last Filed Vital Signs Vital Sign Reading Time Taken Comments Blood Pressure 142/70 08/12/2023 1:51 PM CDT Pulse 90 08/12/2023 1:51 PM CDT Temperature 36.7 C (98.1 F) 08/12/2023 1:51 PM CDT Respiratory Rate 18 07/25/2023 7:41 AM CDT Oxygen Saturation 95% 08/12/2023 1:51 PM CDT Inhaled Oxygen Concentration - - Weight 155.9 kg (343 lb 9.6 oz) 08/12/2023 1:51 PM CDT Height 162.6 cm (5' 4 ) 08/12/2023 1:51 PM CDT Body Mass Index 58.98 08/12/2023 1:51 PM CDT Plan of Treatment Not on file Insurance [employer] [facility] MEDICARE [facility] Address: [address] [address] [place] [address] [facility] MEDICARE [facility] MEDICARE [facility] ALLIANCE OPTIONS [facility] Advance Directives For more information, please contact: [phone] * Full Code (Latest Code Status on File) Date Activated Date Inactivated Comments 07/23/2023 3:39 PM 07/25/2023 6:34 PM Care Teams Pharmacy Graduate Intern Relationship Specialty Start Date End Date Matias Warren MD [address] [place] [id number] PCP - General Internal Medicine 07/20/23
--- OUTSIDE RECORDS SUMMARY | 2024-05-13 01:44 | XMS_ITS | Clinical Summary ---
Author Organization [facility] [employer] [facility] [employer] [facility] Address [address] [address] Phone Care Team Providers Care Netbackup Engineer Name Role Phone Matias Warren MD Primary Care Provider [phone] Allergies Active Allergy Reactions Criticality Noted Date Comments Cephalexin Hives,Rash Medium 07/26/2014 Other Reaction(s): Unknown Ciprofloxacin Hives High 12/20/2011 Other Reaction(s): Unknown Dapagliflozin Other (see comments) Low 12/24/2021 Other Reaction(s): yeast vaginitis Fluoxetine Other (see comments) 12/27/2019 Meperidine Other (see comments) High 12/20/2011 Low blood pressure Low blood pressure Meperidine Hcl 07/26/2014 Other Reaction(s): Unknown Morphine Hives Medium 07/26/2014 Other Reaction(s): Unknown Ofloxacin Hives High 06/12/2017 Medications amLODIPine (Norvasc) 10 MG tablet Take 10 mg by mouth 1 (one) time each day 11/21/2015 Active aspirin (ST ALEJANDRO) 81 MG EC tablet Take 81 mg by mouth in the morning. 12/10/2022 Active carvedilol (COREG) 25 MG tablet Take 25 mg by mouth in the morning and 25 mg in the evening. 07/01/2023 Active diazePAM (VALIUM) 10 MG tablet Take 10 mg by mouth in the morning and 10 mg at noon and 10 mg in the evening. 07/14/2023 Active Empagliflozin (Jardiance) 25 MG tablet Take 25 mg by mouth in the morning. 05/21/2023 Active folic acid (FOLVITE) 400 MCG tablet Take 1 mg by mouth in the morning. Active HumaLOG KWIKPEN 100 UNIT/ML solution pen-injector Inject 15 Units under the skin in the morning and 15 Units at noon and 15 Units in the evening. 07/07/2019 Active Veltassa 16.8 g pack Take 16.8 g by mouth in the morning. 05/20/2023 Active torsemide (DEMADEX) 10 MG tablet Take 30 mg by mouth 1 (one) time each day Active Ascorbic Acid (vitamin C) 500 MG tablet Take 500 mg by mouth 1 (one) time each day Active cyanocobalamin (VITAMIN B-12) 1000 MCG tablet Take 1,000 mcg by mouth 1 (one) time each day Active ergocalciferol 1.25 MG (98302 UT) capsule Take 50,000 Units by mouth 1 (one) time per week Active insulin glargine (Basaglar KwikPen) 100 UNIT/ML injection Inject 30 Units under the skin in the morning and 30 Units in the evening. 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 06/30/2023 Hyperlipidemia due to type 2 diabetes mellitus 0 06/30/2023 Overview (08/27/2023): Note: elevated crp Essential hypertension 07/17/2015 Family History Medical History Relation Comments Diabetes Father Diabetes Father's Brother Kidney disease Father's Brother Diabetes Father's Sister Cancer Maternal Grandfather Dementia Maternal Grandfather Heart disease Maternal Grandmother Hypertension Mother Diabetes Paternal Grandfather Diabetes Paternal Grandmother Hypertension Paternal Grandmother Relation Status Comments Father Alive Father's Brother Father's Sister Maternal Grandfather Maternal Grandmother Mother Alive Paternal Grandfather Paternal Grandmother Social History Tobacco Use Types Packs/Day Years Used Date Smoking Tobacco: Former Cigarettes Smokeless Tobacco: Never Tobacco Cessation:Counseling Given: Not Answered Alcohol Use Standard Drinks/Week Comments Never 0 (1 standard drink = 0.6 oz pur e alcohol) Comments Unknown Sex and Gender Information Value Date Recorded Sex Assigned at Not on file Legal Sex Female 1:41 PM EDT Gender Identity Not on file Sexual Orientation Not on file Last Filed Vital Signs Vital Sign Reading Time Taken Comments Blood Pressure 148/78 12/16/2023 4:16 PM CDT Pulse 73 12/16/2023 4:16 PM CDT Temperature 37.2 C (99 F) 12/16/2023 4:16 PM CDT Respiratory Rate 19 12/16/2023 4:16 PM CDT Oxygen Saturation 95% 12/16/2023 4:16 PM CDT Inhaled Oxygen Concentration - - Weight 147 kg (325 lb) 12/16/2023 4:16 PM CDT Height 162.6 cm (5' 4 ) 12/16/2023 4:16 PM CDT Body Mass Index 55.79 12/16/2023 4:16 PM CDT Plan of Treatment Health Maintenance Due Date Last Done Comments Breast Cancer Screening 1974 Pneumococcal Vaccine: Pediat rics (0 to 5 Years) and At-Risk Patients (6 to 64 Years) (1 of 2 - PCV) 1980 Hepatitis B Vaccine (1 of 3 - 19+ 3-dose series) 1993 Colorectal Cancer Screening: Annual FOBT 2023 Colorectal Cancer Screening: Colonoscopy 2023 Colorectal Cancer Screening: Sigmoidoscopy 2023 Diabetes: Ophthalmology Exam 07/26/2023 Diabetes: Pedal Pulse Checked 07/26/2023 Diabetes: Sensory Foot Exam 07/26/2023 Diabetes: Visual Foot Exam 07/26/2023 Diabetes: Hemoglobin A1C 10/21/2023 07/21/2023, 0505/2023 Influenza Vaccine (#1) 2023 12/06/2019 Procedures Procedure Name Priority Date/Time Associated Diagnosis Comments EXT RESULT ENTRY Routine 07/21/2023 from Last 3 Months or Most Recently Relevant to Health Maintenance Results * (ABNORMAL) EXT RESULT ENTRY (07/21/2023) WBC 12.6(A) 3.3 - 10.0 10*3/ML Red Blood Cell Count 3.38 Hemoglobin 9.5(A) 12.0 - 16.0 Hematocrit 29.1(A) 36.0 - 46.0 Platelets 472(A) 150 - 399 10*3/UL MCV 86.1 82.0 - 108.0 Sodium 132(A) 137 - 147 Potassium 5.6(A) 3.4 - 5.5 Chloride 104.0(A) 99.0 - 108.0 Carbon Dioxide 15 mmol/L Anion Gap 13 <=30 MMOL/L Glucose 255(A) 60 - 200 BUN 50(A) 4 - 21 mg/dL Creatinine 2.36(A) 0.50 - 1.10 mg/dL Calcium 8.6(A) 8.7 - 10.7 mg/dL eGFR Non-Afr Salvadorean 25(L) Hemoglobin A1C 8.5(A) 4.0 - 6.0 Glucose, UA 4+ mg/dL Bilirubin, UA Negative Ketones, UA Negative Urine Specific [place] 1.015 Blood, UA 3+ Randy/ul pH, UA 5.5 Protein, UA 3+ mg/dL Urobilinogen, UA 2.0 Nitrite, UA Negative Leukocytes, UA Negative WBC, Urine 5-10(A) None Seen, Occasional, 0-2 /HPF RBC, Urine >50(A) None Seen, Occasional, 1-5 /HPF Epithelial Cells in Urine 1-5 /HPF Bacteria, Urine Few(A) None Seen, Occasional /HPF Casts 1-5 Rheumatoid Factor 14 CRP 131.6(H) mg/L Sed Rate 110(H) 07/21/2023 Historical Provider LAB BLOOD ORDERABLES Mirna l Result from Last 3 Months or Most Recently Relevant to Health Maintenance Insurance MEDICARE [facility] Care Teams Netbackup Engineer Relationship Specialty Start Date End Date Matias Warren MD [address] [place], [place] [id number] PCP - General Internal Medicine 07/24/23
--- OUTSIDE RECORDS SUMMARY | 2024-05-13 01:44 | XMS_ITS | Clinical Summary ---
Author Organization [facility] Address [address] [place] [address] Phone Care Team Providers Care Assault Boat Coxswain Name Role Phone ИВАН LILLY MD Primary Care Provider [phone] MAXX Melgar, TOM Acosta [phone] Reason for Visit and Chief Complaint [Patient Encounter] Problems Includes: Problems addressed during this encounter and other active Problems All Visits Onset Date Resolved Date Provider Condition S tatus Diabetes Mellitus Type 2 07/14/2023 TOM LILLY M.D. Active Last Documented On 4 4:48PM ; [facility] Chronic Kidney Disease Stage 2 Due To Type 2 Diabetes Mellitus 06/30/2023 LAURA FONTENOT RN AVA B C Active Last Documented On 4 1:29PM ; [facility] Hyperlipidemia Due To Type 2 Diabetes Mellitus 06/30/2023 LAURA FONTENOT RN AVA BC Activ e Last Documented On 4 1:31PM ; [facility] Note: elevated crp Venous Insufficiency 06/30/2023 LAURA MOSER Active Last Documented On 4 1:30PM ; [facility] Iron Deficiency Anemia 02/11/2022 TOM INMAN M.D. Active Last Documented On 2 5:00PM ; [facility] Nonorganic Sleep Apnea Adult 05/21/2021 TOM LILLY M.D. Active Last Documented On 2 5:37PM ; [facility] Generalized Anxiety Disorder 02/05/2021 SCOOTER L MAURA DO Active Last Documented On 1 9:22AM ; [facility] Obesity Morbid 02/05/2021 SCOOTER Meagan SHAVERMAURA DO Ac tive Last Documented On 1 9:22AM ; [facility] Vitamin D Deficiency 05/24/2020 ARLEY HEATH MD Active Last Documented On 1 4:27PM ; [facility] Essential Hypertension 07/17/2015 CANDIS MANRIQUE MD Active Last Documented On 6 5:39PM ; [facility] Plan of Treatment Care Programs CHRONIC CARE MANAGMENT Last Documented On 1 11:07AM ; [facility] Assessments Includes: Assessments from this encounter No Assessments Recorded Medical Equipment - Implanted Devices Includes: Current Devices No Medical Equipment Recorded Medications Includes: Medications discussed during this encounter and other current Medications Current Medications (continue as prescribed) Diflucan 150 MG Oral Tablet 08/14/2023 Provider: TOM LILLY M.D. Diagnosis: One tablet daily Last Documented On 08/14/2023 11:36AM By ИВАН LILLY MD ; [facility] Sodium Bicarbonate 650 MG Oral Tablet 08/13/2023 Pro vider: Diagnosis: Last Documented On 08/13/2023 11:26AM By Marques MAGDALENO ; [facility] diazePAM 10 MG Oral Tablet 08/11/2023 Provider: TOM LILLY M.D. Diagnosis: Generalized anxi ety disorder TAKE 1 TABLET BY MOUTH THREE TIMES DAILY Last Documented On 08/11/2023 8:59AM By ИВАН LILLY MD ; [facility] amLODIPine Besylate 10 MG Oral Tablet 08/10/2023 Provider: TOM LILLY M.D. Diagnosis: Essential (prima ry) hypertension TAKE 1 TABLET BY MOUTH EVERY DAY Last Documented On 08/10/2023 9:13PM By ИВАН LILLY MD ; [facility] Jardiance 25 MG Oral Tablet 08/10/2023 Provider: TOM LILLY M.D. Diagnosis: Type 2 diabetes mellitus with hyperglycemia One tablet daily Last Documented On 08/10/2023 9:13PM By ИВАН LILLY MD ; [facility] Torsemide 10 MG Oral Tablet 08/09/2023 Provider: VIRGILIO SAENZ MD Diagnosis: Last Documented On 08/13/2023 11:26AM By Marques MAGDALENO ; [facility] metOLazone 2.5 MG Oral Tablet 08/08/2023 Provider: HARPER FISHER MD Diagnosis: Last Documented On 08/13/2023 11:26AM By Marques MAGDALENO ; [facility] BD Pen Needle Mini U/F 31G X 5 MM Miscellaneous 08/07/2023 Provider: TOM Diaz Diagnosis: Type 2 diabetes mellitus without complications as directed Last Documented On 08/07/2023 11:48AM By ИВАН LILLY MD ; [facility] Basaglar KwikPen 100 UNIT/ML Subcutaneous Solution Pen-injector 07/31/2023 Provider: TOM Ma Diagnosis: 40 u at night Last Documented On 4 8:36AM By TRINH TEJADA ; [facility] FeroSul 325 (65 Fe) MG Oral Tablet 07/31/2023 Provid er: Diagnosis: Last Documented On 4 8:36AM By TRINH TEJADA ; [facility] HumaLOG KwikPen 100 UNIT/ML Subcutaneous Solution Pen-injector 07/28/2023 Provider: TOM Ma Diagnosis: 14 u with meals Last Documented On 4 8:36AM By TRINH TEJADA ; [facility] Folic Acid 1 MG Oral Tablet 05/19/2023 Provider: TOM LILLY M.D. Diagnosis: Deficiency of ot her specified B group vitamins One tablet daily Last Documented On 4 8:36AM By TRINH TEJADA ; [facility] Dexcom G6 Transmitter Miscellaneous 03/03/2023 Provider: TOM LILLY M.D. Diagnosis: Type 2 diabetes mellitus with hyperglycemia USE DIRECTED TO CHECK BLOOD SUGAR Last Documented On 4 8:36AM By TRINH TEJADA ; [facility] Veltassa 8.4 GM Oral Packet 12/10/2022 Provider: Diagnosis: once daily Last Documented On 4 8:36AM By TRINH TEJADA ; [facility] Aspirin Adult Low Dose 81 MG Oral Tablet Delayed Relea se 12/10/2022 Provider: Diagnosis: Last Documented On 4 8:36AM By TRINH TEJADA ; [facility] Global Ease Inject Pen Needl es 31G X 5 MM Miscellaneous 11/08/2022 Provider: TONY [place] Diagnosis: DIRECTED TEST THREE TIMES DAILY Last Documented On 4 8:36AM By TRINH TEJADA ; [facility] Vitamin D3 125 MCG (5000 UT) Oral Capsule 10/09/2022 Provider: TOM LILLY M.D. Diagnosis: Vitamin D defici ency, unspecified One tablet daily Last Documented On 4 8:36AM By TRINH TEJADA ; [facility] Vitamin B12 1000 MCG Oral Tablet 10/09/2022 Provider: TOM LILLY M.D. Diagnosis: Deficiency of ot her specified B group vitamins One tablet daily Last Documented On 4 8:36AM By TRINH TEJADA ; [facility] Medications Administered Includes: Administered Medications from this encounter No Administered Medications Recorded Results Includes: Results discussed during this encounter No Results Recorded For Specified Dates History of Present Illness Includes: History of Present Illness from this encounter No History of Present Illness Recorded Social History No Social History Recorded - Smoking Status Unknown Medical History Includes: Medical History addressed during this encounter No Medical History Recorded Family History Includes: Family History addressed during this encounter No Family History Recorded Review of Systems Includes: Review of Systems from this encounter No Review of Systems Recorded Mental Status Includes: Mental Status from this encounter No Mental Status Recorded Functional Status Includes: Functional Status from this encounter No Functional Status Recorded Physical Exam Includes: Physical Exam from this encounter No Physical Exam Recorded Allergies Includes: Active Allergies Substance Type Reaction Onset Date Resolved Date Statu s Morphine Sulfate Allergy 07/26/2014 Ac tive Last Documented On 4 11:14AM ; [facility] Floxin Otic Allergy 07/26/2014 Active Last Documented On 4 11:14AM ; [facility] Farxiga Intolerance yeast vaginitis 12/24/2021 A ctive Last Documented On 4 11:14AM ; [facility] Demerol Allergy 07/26/2014 Active Last Documented On 4 11:14AM ; [facility] Cipro Allergy 07/26/2014 Active Last Documented On 4 11:14AM ; [facility] cephalexin Allergy 07/26/2014 Active Last Documented On 4 11:14AM ; [facility] Encounters Encounter Provider Location Date Check-In Time Check-Out Time Diagnosis [Patient Encounter] TOM LILLY M.D. 04/15/2024 4:37PM 11:59PM Insurance Includes: Active Insurance Policies Plan Name Member ID Group # Subscriber Relationship Effect reynaldo Dates 1 - [facility] [id number] FAIZAN Webster 03/10/2023 - Unknown 2 - MEDICARE PART A CLAIMS/NGS [id number] FAIZAN Webster Clinical Notes Includes: Clinical Notes from this encounter No Clinical Notes Recorded
--- OUTSIDE RECORDS SUMMARY | 2024-05-13 01:44 | XMS_ITS | Clinical Summary ---
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 Active Last Documented On 4 4:48PM ; [facility] Chronic Kidney Disease Stage 2 Due To Type 2 Diabetes Mellitus 06/30/2023 LAURA JOHN B C Active Last Documented On 4 1:29PM ; [facility] Hyperlipidemia Due To Type 2 Diabetes Mellitus 06/30/2023 LAURA JOHN BC Activ e Last Documented On 4 1:31PM ; [facility] Note: elevated crp Kidney Atrophy Left 06/30/2023 TOM LILLY M.D. Inactive Last Documented On 4 1:28PM ; [facility] Venous Insufficiency 06/30/2023 LAURA MOSER Active Last Documented On 4 1:30PM ; [facility] Iron Deficiency Anemia 02/11/2022 TOM S DIZ ON M.D. Active Last Documented On 2 5:00PM ; [facility] Nonorganic Sleep Apnea Adult 05/21/2021 TOM LILLY M.D. Active Last Documented On 2 5:37PM ; [facility] Generalized Anxiety Disorder 02/05/2021 SCOOTER Meagan MAURA DO Active Last Documented On 1 9:22AM ; [facility] Obesity Morbid 02/05/2021 SCOOTER L MAURA DO Ac tive Last Documented On 1 9:22AM ; [facility] Iron Deficiency Anemia 05/24/2020 02/05/2021 TOM LUNA ON M.D. Resolved Last Documented On 1 9:17AM ; [facility] Vitamin D Deficiency 05/24/2020 ARLEY HEATH MD Active Last Documented On 1 4:27PM ; [facility] Essential Hypertension 07/17/2015 CANDIS MANRIQUE MD Active Last Documented On 6 5:39PM ; [facility] Plan of Treatment - Return to the clinic if condition worsens or new symptoms arise - Last Documented On 08/13/2023 1:34PM ; [facility] - Continue current medication - Last Documented On 08/13/2023 1:34PM ; [facility] - Modify drug dosage Inc Jardiance to 25 mg a day - Last Documented On 08/13/2023 1:34PM ; [facility] Inc Basaglar to 30 u 2 x a day - Patient to call if problem develops - Last Documented On 08/13/2023 1:34PM ; [facility] Care Programs CHRONIC CARE MANAGMENT Last Documented On 1 11:07AM ; [facility] Assessments Includes: Assessments from this encounter Findings - I10 - Essential (primary) hypertension - Last Documented On 08/13/2023 1:34PM ; [facility] - I10 - Essential (primary) hypertension - Last Documented On 08/13/2023 1:34PM ; [facility] - I87.2 - Venous insufficiency (chronic) (peripheral) - Last Documented On 08/13/2023 1:34PM ; [facility] - I87.2 - Venous insufficiency (chronic) (peripheral) - Last Documented On 08/13/2023 1:34PM ; [facility] - G47.30 - Sleep apnea, unspecified - Last Documented On 08/13/2023 1:34PM ; [facility] - G47.30 - Sleep apnea, unspecified - Last Documented On 08/13/2023 1:34PM ; [facility] - 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) - Last Documented On 08/13/2023 1:34PM ; [facility] - N18.2 - Chronic kidney disease, stage 2 (mild) - Last Documented On 08/13/2023 1:34PM ; [facility] - N18.2 - Chronic kidney disease, stage 2 (mild) - Last Documented On 08/13/2023 1:34PM ; [facility] - E78.5 - Hyperlipidemia, unspecified - Last Documented On 08/13/2023 1:34PM ; [facility] - E78.5 - Hyperlipidemia, unspecified - Last Documented On 08/13/2023 1:34PM ; [facility] - E55.9 - Vitamin D deficiency, unspecified - Last Documented On 08/13/2023 1:34PM ; [facility] - E55.9 - Vitamin D deficiency, unspecified - Last Documented On 08/13/2023 1:34PM ; [facility] - E66.8 - Other obesity - Last Documented On 08/13/2023 1:34PM ; [facility] - E66.8 - Other obesity - Last Documented On 08/13/2023 1:34PM ; [facility] - E11.9 - Type 2 diabetes mellitus without complications - Last Documented On 08/13/2023 1:34PM ; [facility] - E11.9 - Type 2 diabetes mellitus without complications - Last Documented On 08/13/2023 1:34PM ; [facility] - F41.1 - Generalized anxiety disorder - Last Documented On 08/13/2023 1:34PM ; [facility] - F41.1 - Generalized anxiety disorder - Last Documented On 08/13/2023 1:34PM ; [facility] - D50.9 - Iron deficiency anemia, unspecified - Last Documented On 08/13/2023 1:34PM ; [facility] - D50.9 - Iron deficiency anemia, unspecified - Last Documented On 08/13/2023 1:34PM ; [facility] Medical Equipment - Implanted Devices Includes: Current Devices No Medical Equipment Recorded Medications Includes: Medications discussed during this encounter and other current Medications Discontinued / Stopped on this date on 07/31/2023 Sodium Bicarbonate 650 MG Oral Tablet Pro vider: Diagnosis: Last Documented On 08/13/2023 1:29PM By ИВАН LILLY MD ; [facility] Amoxicillin-Pot Clavulanate 875-125 MG Oral Tablet Provider: NONI OSORIO INCLUSION TEACHER-B C Diagnosis: Last Documented On 08/13/2023 11:21AM By ИВАН LILLY MD ; [facility] Torsemide 5 MG Oral Tablet Provider: Meagan LILLY M.D. Diagnosis: Last Documented On 08/13/2023 1:29PM By ИВАН LILLY MD ; [facility] Current Medications (continue as prescribed) Diflucan 150 MG Oral Tablet 08/14/2023 Provider: TOM LILLY M.D. Diagnosis: One tablet daily Last Documented On 08/14/2023 11:36AM By ИВАН LILLY MD ; [facility] Sodium Bicarbonate 650 MG Oral Tablet 08/13/2023 Pro vider: Diagnosis: Last Documented On 08/13/2023 11:26AM By Marques MAGDALENO ; [facility] diazePAM 10 MG Oral Tablet 08/11/2023 Provider: TOM LILLY M.D. Diagnosis: Generalized anxi ety disorder TAKE 1 TABLET BY MOUTH THREE TIMES DAILY Last Documented On 08/11/2023 8:59AM By ИВАН LILLY MD ; [facility] amLODIPine Besylate 10 MG Oral Tablet 08/10/2023 Provider: TOM LILLY M.D. Diagnosis: Essential (prima ry) hypertension TAKE 1 TABLET BY MOUTH EVERY DAY Last Documented On 08/10/2023 9:13PM By ИВАН LILLY MD ; [facility] Jardiance 25 MG Oral Tablet 08/10/2023 Provider: TOM LILLY M.D. Diagnosis: Type 2 diabetes mellitus with hyperglycemia One tablet daily Last Documented On 08/10/2023 9:13PM By ИВАН LILLY MD ; [facility] Torsemide 10 MG Oral Tablet 08/09/2023 Provider: VIRGILIO SAENZ MD Diagnosis: Last Documented On 08/13/2023 11:26AM By Marques MAGDALENO ; [facility] metOLazone 2.5 MG Oral Tablet 08/08/2023 Provider: HARPER RIVERA MD Diagnosis: Last Documented On 08/13/2023 11:26AM By Marques MAGDALENO ; [facility] BD Pen Needle Mini U/F 31G X 5 MM Miscellaneous 08/07/2023 Provider: TOM Diaz Diagnosis: Type 2 diabetes mellitus without complications as directed Last Documented On 08/07/2023 11:48AM By ИВАН LILLY MD ; [facility] Basaglar KwikPen 100 UNIT/ML Subcutaneous Solution Pen-injector 07/31/2023 Provider: TOM Ma Diagnosis: 40 u at night Last Documented On 4 8:36AM By TRINH TEJADA ; [facility] FeroSul 325 (65 Fe) MG Oral Tablet 07/31/2023 Provid er: Diagnosis: Last Documented On 4 8:36AM By TRINH TEJADA ; [facility] HumaLOG KwikPen 100 UNIT/ML Subcutaneous Solution Pen-injector 07/28/2023 Provider: TOM Ma Diagnosis: 14 u with meals Last Documented On 4 8:36AM By TRINH TEJADA ; [facility] Folic Acid 1 MG Oral Tablet 05/19/2023 Provider: TOM LILLY M.D. Diagnosis: Deficiency of ot her specified B group vitamins One tablet daily Last Documented On 4 8:36AM By TRINH TEJADA ; [facility] Dexcom G6 Transmitter Miscellaneous 03/03/2023 Provider: TOM LILLY M.D. Diagnosis: Type 2 diabetes mellitus with hyperglycemia USE DIRECTED TO CHECK BLOOD SUGAR Last Documented On 4 8:36AM By TRINH TEJADA ; [facility] Veltassa 8.4 GM Oral Packet 12/10/2022 Provider: Diagnosis: once daily Last Documented On 4 8:36AM By TRINH TEJADA ; [facility] Aspirin Adult Low Dose 81 MG Oral Tablet Delayed Relea se 12/10/2022 Provider: Diagnosis: Last Documented On 4 8:36AM By TRINH TEJADA ; [facility] Global Ease Inject Pen Needl es 31G X 5 MM Miscellaneous 11/08/2022 Provider: TONY [place] Diagnosis: DIRECTED TEST THREE TIMES DAILY Last Documented On 4 8:36AM By TRINH TEJADA ; [facility] Vitamin D3 125 MCG (5000 UT) Oral Capsule 10/09/2022 Provider: TOM LILLY M.D. Diagnosis: Vitamin D defici ency, unspecified One tablet daily Last Documented On 4 8:36AM By TRINH TEJADA ; [facility] Vitamin B12 1000 MCG Oral Tablet 10/09/2022 Provider: TOM LILLY M.D. Diagnosis: Deficiency of ot her specified B group vitamins One tablet daily Last Documented On 4 8:36AM By TRINH TEJADA ; [facility] Past Medications on file Carvedilol 25 MG Oral Tablet 07/01/2023 - 09/29/2023 Provider: TOM LILLY M.D. Diagnosis: Essential (prima ry) hypertension TAKE 1 TABLET BY MOUTH TWICE DAILY Last Documented On 4 8:36AM By TRINH TEJADA ; [facility] Dexcom G6 Sensor Miscellaneous 08/07/2022 - 02/03/2023 Provider: TOM LILLY M.D. Diagnosis: Type 2 diabetes mellitus with hyperglycemia change every 10 days as directedDX E11.65 Last Documented On 3 1:21PM By NIKOLAI MAGDALENO ; [facility] Medications Administered Includes: Administered Medications from this encounter No Administered Medications Recorded Vital Signs Includes: Vital Signs from this encounter Vital Name 08/13/2023 11:15A Blood Pressure Sitting (mmHg) 168/78 Pulse Rate-Sitting (bpm) 82 Respiration Rate (breaths/min) 19 Temp-Oral (F) 98.6 Height (in) 64 Weight (lb) 342.6 Body Mass Index 58.8 Body Surface Area 2.5 Oxygen Saturation (%) 97 Last Documented: On 08/13/2023 11:23A M ; [facility] Results Includes: Results discussed during this encounter CBC WITH DIFF [facility] La boratory Ordered by TRINH FLORES RN-FPA, INCLUSION TEACHER-BC on 07/31/2023 [address] [place], [address] Collected: 07/31/2023 Report ed: 07/31/2023 12:57 tel: Last Documented On 4 9:10AM ; [facility] Reviewed by TRINH UNGER-JORDYN, INCLUSION TEACHER-BC on 08/06/2023; All test results are final unless otherwise noted. ALC 1.5 None Last Documented On 4 10:18PM ; [facility] Note: Responsible Observer[place] ([place] ANC 5.8 None Last Documented On 4 10:18PM ; [facility] Note: Responsible Observer[place] BASO# 0.05 th/uL (0.00 - 0.20) None Last Documented On 4 10:18PM ; [facility] Note: Responsible Observer: [place] BASO% 0.6 % (0.0 - 2.0) None Last Documented On 4 10:18PM ; [facility] Note: Responsible Observer: ([place] CBC WITH DIFF See Note None Last Documented On 4 10:18PM ; [facility] Note: CBC (COMPLETE BLOOD COUNT)Respons[place] ble Observer: [place] DIFF (Y/N) NO None Last Documented On 4 10:18PM ; [facility] Note: Responsible Observer: [place] EOS# 0.54 th/uL (0.00 - 0.45) H (High) Last Documented On 4 10:18PM ; [facility] Note: Responsible Observer: [place] EOS% 6.3 % (0.0 - 9.0) None Last Documented On 4 10:18PM ; [facility] Note: Responsible [place]: [place] HCT 27.3 % (38.0 - 47.0) L (Low) Last Documented On 4 10:18PM ; [facility] Note: Responsible Observer: [place] HGB 9.0 g/dL (12.0 - 16.0) L (Low) Last Documented On 4 10:18PM ; [facility] Note: Responsible Observer: [place] IG# 0.06 th/ul (0.00 - 0.10) None Last Documented On 4 10:18PM ; [facility] Note: Responsible Observer: [place] IG% 0.7 % (0.0 - 0.5) H (High) Last Documented On 4 10:18PM ; [facility] Note: Responsible Observer: [place] LYMPH# 1.49 th/uL (1.00 - 4.80) None Last Documented On 4 10:18PM ; [facility] Note: Responsible Observer: [place] LYMPH% 17.4 % (14.0 - 45.0) None Last Documented On 4 10:18PM ; [facility] Note: Responsible Observer: [place] MCH 28.1 pg (25.0 - 35.0) None Last Documented On 4 10:18PM ; [facility] Note: Responsible Observer: [place] MCHC 33.0 g/dL (31.0 - 36.0) None Last Documented On 4 10:18PM ; [facility] Note: Responsible Observer: [place] MCV 85.3 fl (80.0 - 100) None Last Documented On 4 10:18PM ; [facility] Note: Responsible Observer: [place] MONO# 0.53 th/uL (0.00 - 0.80) None Last Documented On 4 10:18PM ; [facility] Note: Responsible Observer: [place] MONO% 6.2 % (1.0 - 10.0) None Last Documented On 4 10:18PM ; [facility] Note: Responsible Observer: [place] MPV 10.3 fl (6.0 - 11.0) None Last Documented On 4 10:18PM ; [facility] Note: Responsible [place]: [place] NEUT# 5.87 th/uL None Last Documented On 4 10:18PM ; [facility] Note: Responsible [place]: [place] NEUT% 68.8 % (45.0 - 76.0) None Last Documented On 4 10:18PM ; [facility] Note: Responsible Observer: [place] NRBC% 0.0 % (0.0 - 0.0) None Last Documented On 4 10:18PM ; [facility] Note: Responsible [place]: [place] PLT 332 th/uL (150 - 400) None Last Documented On 4 10:18PM ; [facility] Note: Responsible [place]: [place] RBC 3.20 mil/uL (4.50 - 5.90) L (Low) Last Documented On 4 10:18PM ; [facility] Note: Responsible [place]: [place] RDW 15.1 % (11.0 - 16.0) None Last Documented On 4 10:18PM ; [facility] Note: Responsible Observer: [place] WBC 8.5 th/uL (4.5 - 11.0) None Last Documented On 4 10:18PM ; [facility] Note: Responsible Observer: ([place] .BB CROSSMATCH 1 UNIT (LAB ONLY) [facility] Laboratory Ordered by BALDO RG PA-C on 07/16/[address] [place] [address], [place], [address] Collected: 07/19/2023 Report ed: 07/19/2023 15:30 tel: Last Documented On 4 1:29PM ; [facility] Reviewed by TOM LILLY M.D. on 08/13/2023; All test results are final unless otherwise noted. .BB CROSSMATCH 1 UNIT (LAB ONLY) See Note None Last Documented On 08/05/2023 10:16PM ; [facility] Note: [id number] UNDoREQUEST FOR BLOOD OR BLOOD COMPONENTUNDx Patient's Arm Band Number _[id number] 07/19/23.TER.A PositiveResponsible Observer: (MEGAN) Antibody Screen None Detected None Last Documented On 08/05/2023 10:16PM ; [facility] Note: Antibody ID: Responsible Observer: (MEGAN) Crossmatch Compatible None Last Documented On 08/05/2023 10:16PM ; [facility] Note: Donor Unit Number _[id number] 07/19/23.TER. CMV NEGATIVE? _N 07/19/23.TER. IRRADIATED? _N 07/19/23.TER. TIME DATE BLOOD BANK SIGNATURE PICKED UP FROM LAB CHECKED WITH ADMINISTERED BY IDENTIFICATION NUMBER BLOOD TYPE AND Rh OF RECIPIENT AND UNIT OF BLOOD AGREE YES --------- NO ---------Responsible Observer: GARRICK) Donor's Type A Positive None Last Documented On 08/05/2023 10:16PM ; [facility] Note: Donor Expiration Date _08/19/2023 07/19/23.1530.TER. Component PRBC'SResponsible Observer: (MEGAN) History of Present Illness Includes: History of Present Illness from this encounter SHERRIE BEACH is a 48 year old female. Was in hospital bec of Pneumonia Resp Failure/ Kidney Failure now on Basaglar/ Humalog on Sodium Biacrd has a lot of weight gain swelling now on Torsemide/ Metolazone edema now improving/ losing weight still weak unable to work seeing Dr Dasilva/ Dr Rivera/ Nephrology need to discuss with nephrology the bicard pills/ Epogen/ iron infusion. - Allergy list reviewed - Medication list reviewed Social History Description Last Updated DME in home: 08/13/2023 Last Documented On 4 1:34PM ; [facility] DME in home: wheelchair 08/13/2023 Last Documented On 4 1:34PM ; [facility] Soc Hx: works as [employer] on disability. . No alcohol, drugs, tobacco, vaping. Diet: regular. Exercise: none 06/30/2023 Last Documented On 4 11:14AM ; [facility] A high-sugar diet 06/30/2023 Last Documented On 4 11:14AM ; [facility] Amount of sleep 06/30/2023 Last Documented On 4 11:14AM ; [facility] Current nonsmoker 06/30/2023 Last Documented On 4 11:14AM ; [facility] Diet needs improvement 06/30/2023 Last Documented On 4 11:14AM ; [facility] Eats breakfast regularly 06/30/2023 Last Documented On 4 11:14AM ; [facility] Exercising regularly 06/30/2023 Last Documented On 4 11:14AM ; [facility] Former smoker 06/30/2023 Last Documented On 4 11:14AM ; [facility] Frequency of meals 06/30/2023 Last Documented On 4 11:14AM ; [facility] Frequent high carbohydrate meals 024 Last Documented On 4 11:14AM ; [facility] Good exercise habits 06/30/2023 Last Documented On 4 11:14AM ; [facility] Lives with spouse 06/30/2023 Last Documented On 4 11:14AM ; [facility] Marital history 06/30/2023 Last Documented On 4 11:14AM ; [facility] Missing meals 06/30/2023 Last Documented On 4 11:14AM ; [facility] No caffeine use 06/30/2023 Last Documented On 4 11:14AM ; [facility] No consumption of alcohol 06/30/2023 Last Documented On 4 11:14AM ; [facility] No tobacco use 06/30/2023 Last Documented On 4 11:14AM ; [facility] No travel 06/30/2023 Last Documented On 4 11:14AM ; [facility] Non-smoker 06/30/2023 Last Documented On 4 11:14AM ; [facility] Not a current smoker 06/30/2023 Last Documented On 4 11:14AM ; [facility] Not using drugs 06/30/2023 Last Documented On 4 11:14AM ; [facility] Nutritional quality of diet 06/30/2023 Last Documented On 4 11:14AM ; [facility] 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/29 Last Documented On 4 11:14AM ; [facility] Sexually active 06/30/2023 Last Documented On 4 11:14AM ; [facility] Stopped smoking years ago 1996 4 Last Documented On 4 11:14AM ; [facility] Work history 06/30/2023 Last Documented On 4 11:14AM ; [facility] 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/30/2023 Last Documented On 4 11:14AM ; [facility] Sexually active with 1 partners in the l ast year 06/30/2023 Last Documented On 4 11:14AM ; [facility] Currently 02/22/2020 Last Documented On 4 11:14AM ; [facility] No work-related circumstances 02/22/2020 Last Documented On 4 11:14AM ; [facility] Not using alcohol 02/22/2020 Last Documented On 4 11:14AM ; [facility] Smoking Status Unknown Procedures and Surgical History Includes: Procedures from this encounter Procedures Code Diagnosis Performing Provider Service L ocation Service Date use of tobacco assessment performed 1000F Last Documented On 4 11:23AM ; [facility] standardized depression screening: negative for symptoms 3351F Last Documented On 4 11:14AM ; [facility] review of medications documented 1160F Last Documented On 4 11:23AM ; [facility] assessment of suicide risk performed Last Documented On 4 11:14AM ; [facility] screening for adult depression: impressi on and score three Last Documented On 4 11:14AM ; [facility] Surgical History Last Updated Prior surgery Csectionx3 05/21/2021 Last Documented On 4 11:14AM ; [facility] History of section 02/02/2021 Last Documented On 4 11:14AM ; [facility] History of tubal ligation 2002 5 Last Documented On 4 11:14AM ; [facility] Surgical / procedural history c section x 3 1991,1993, and 200207/26/2014 Last Documented On 4 11:14AM ; [facility] Medical History Includes: Medical History addressed during this encounter Description Last Updated Vaccine history 07/31/2023 Last Documented On 4 11:14AM ; [facility] LMP: 06/23/2023 06/30/2023 Last Documented On 4 11:14AM ; [facility] History of screening mammogram was perfo rmed 2021 -- at [facility] 06/30/2023 Last Documented On 4 11:14AM ; [facility] History of Pap smear done 2014 4 Last Documented On 4 11:14AM ; [facility] Systolic blood pressure 140 mmHg 023 Last Documented On 4 11:14AM ; [facility] Diastolic blood pressure 90 mmHg 022 Last Documented On 4 11:14AM ; [facility] Arthritis 05/21/2021 Last Documented On 4 11:14AM ; [facility] Currently wearing eyeglasses 05/21/2021 Last Documented On 4 11:14AM ; [facility] Diabetes 05/21/2021 Last Documented On 4 11:14AM ; [facility] Hypertension 05/21/2021 Last Documented On 4 11:14AM ; [facility] No. of Pregnancies: 3 05/21/2021 Last Documented On 4 11:14AM ; [facility] Contact with and (Suspected) exposure to COVID-19 03/14/2021 Last Documented On 4 11:14AM ; [facility] Date COVID symptoms started: 03/14/2021 Last Documented On 4 11:14AM ; [facility] A mammogram was performed 2018 1 Last Documented On 4 11:14AM ; [facility] A self-exam of the feet was performed Last Documented On 4 11:14AM ; [facility] Blood sugar was checked by the patient 1 04/24/2019 Last Documented On 4 11:14AM ; [facility] Diet noncompliance 02/22/2020 Last Documented On 4 11:14AM ; [facility] senior care blood sugar check performed 020 Last Documented On 4 11:14AM ; [facility] No recent insulin (hypoglycemic) reactio n 02/22/2020 Last Documented On 4 11:14AM ; [facility] Noncompliance with exercise program 02/07 Last Documented On 4 11:14AM ; [facility] Past medical history 02/22/2020 Last Documented On 4 11:14AM ; [facility] Urine protein was checked 02/22/2020 Last Documented On 4 11:14AM ; [facility] Surgeries: C-sections 1992,1 994,2002. 2013 admitted for extended migraine. ~Illnesses: diabetes, hypertension, OA, Herpes type 1, migraine, Vit D def 04/18/2019 Last Documented On 4 11:14AM ; [facility] History of essential hypertension 2015 Last Documented On 4 11:14AM ; [facility] History of type 2 diabetes mellitus 11/2015 Last Documented On 4 11:14AM ; [facility] History of arthritis 07/17/2015 Last Documented On 4 11:14AM ; [facility] [facility] History of diabetes mellitus 07/17/2015 Last Documented On 4 11:14AM ; [facility] History of hypertension 07/17/2015 Last Documented On 4 11:14AM ; [facility] Previous hospitalizations 07/17/2015 Last Documented On 4 11:14AM ; [facility] History of anxiety disorder NOS 07/27/19 15 Last Documented On 4 11:14AM ; [facility] section 07/26/2014 Last Documented On 4 11:14AM ; [facility] In monogamous relationship 07/26/2014 Last Documented On 4 11:14AM ; [facility] Contraception: btl 07/26/2014 Last Documented On 4 11:14AM ; [facility] 3 07/26/2014 Last Documented On 4 11:14AM ; [facility] Para 3 07/26/2014 Last Documented On 4 11:14AM ; [facility] Sexually active 07/26/2014 Last Documented On 4 11:14AM ; [facility] Family History Includes: Family History addressed during this encounter Description Last Updated Family history of malignant female breas t neoplasm P. GREAT AUNT 06/30/2023 Last Documented On 4 11:14AM ; [facility] Family history of malignant neoplasm of large intestine M GRANDFATHER 06/30/2023 Last Documented On 4 11:14AM ; [facility] 5 children 05/21/2021 Last Documented On 4 11:14AM ; [facility] Family history of Arthritis 05/21/2021 Last Documented On 4 11:14AM ; [facility] Family history of anxiety disorder NOS 1 04/04/2020 Last Documented On 4 11:14AM ; [facility] Family history of cancer Col on cancer - maternal granfather ~eye cancer - maternal grandmother 02/02/2021 Last Documented On 4 11:14AM ; [facility] Family history of diabetes mellitus 01/09 Last Documented On 4 11:14AM ; [facility] Family history of heart disease 02/03/20 21 Last Documented On 4 11:14AM ; [facility] Family history of migraine headache 01/09 Last Documented On 4 11:14AM ; [facility] Family history unchanged 08/24/2020 Last Documented On 4 11:14AM ; [facility] FMHx: PGF from lightnin g strike. PGM - DM, HTN, [place] age 67. MGF - Alzheimer's 1986. MGM - eye cancer. Uncle - HTN, DM, Kidney failure. Uncle COPD. Mother: HTN, anxiety, COPD 04/18/2019 Last Documented On 4 11:14AM ; [facility] Maternal history of hypertension 016 Last Documented On 4 11:14AM ; [facility] Paternal grandfather's histo ry of malignant neoplasm of the large intestine 07/26/2014 Last Documented On 4 11:14AM ; [facility] Family history of hypertension 5 Last Documented On 4 11:14AM ; [facility] Paternal grandmother's histo ry of diabetes mellitus paternal aunt and uncle 07/26/2014 Last Documented On 4 11:14AM ; [facility] Paternal history of family history of he art disease 07/26/2014 Last Documented On 4 11:14AM ; [facility] Review of Systems Includes: Review of Systems from this encounter Systemic: Feeling tired. No fever, no chills, and no night sweats. Edema. Head: No headache. Cardiovascular: No chest pain or discomfort, no palpitations, and no intermittent leg claudication. Pulmonary: Dyspnea expressed as feeling short of breath and during exertion. No paroxysmal nocturnal dyspnea, no orthopnea, no cough, not coughing up sputum, no hemoptysis, and no wheezing. Gastrointestinal: Normal appetite and no polyphagia. No early satiety, no abdominal pain, and no melena. No diarrhea and no constipation. Genitourinary: No hematuria, no change in urinary frequency, and no polyuria. No dysuria. Endocrine: No polydipsia. Musculoskeletal: No muscle aches and no arthralgias. Localized soft tissue swelling in both legs below the knees. Neurological: No dizziness and no fainting. Mental Status Includes: Mental Status from this encounter Description Oriented to time, place, and person Functional Status Includes: Functional Status from this encounter No Functional Status Recorded Physical Exam Includes: Physical Exam from this encounter Allergies Includes: Active Allergies Substance Type Reaction Onset Date Resolved Date Statu s Morphine Sulfate Allergy 07/26/2014 Ac tive Last Documented On 4 11:14AM ; [facility] Floxin Otic Allergy 07/26/2014 Active Last Documented On 4 11:14AM ; [facility] Farxiga Intolerance yeast vaginitis 12/24/2021 A ctive Last Documented On 4 11:14AM ; [facility] Demerol Allergy 07/26/2014 Active Last Documented On 4 11:14AM ; [facility] Cipro Allergy 07/26/2014 Active Last Documented On 4 11:14AM ; [facility] cephalexin Allergy 07/26/2014 Active Last Documented On 4 11:14AM ; [facility] Encounters Encounter Provider Location Date Check-In Time Check-Out Time Diagnosis CHECK UP TOM LILLY M.D. [facility] 08/13/19 24 10:50AM 11:39AM Essential Hypertension,Iron Deficiency Anemia,Vitamin D Deficiency,Genera lized Anxiety Disorder,Obesity Morbid,Nonorganic Sleep Apnea Adult,Chronic Kidney Disease Stage 2 Due To Type 2 Diabetes Mellitus,Venous Insufficiency,Hyp erlipidemia Due To Type 2 Diabetes Mellitus,Kidney Atrophy Left,Diabetes Mellitus Type 2,Essential Hypertension,Iron Deficiency Anemia,Vitamin D Deficiency,Genera lized Anxiety Disorder,Obesity Morbid,Nonorganic Sleep Apnea Adult,Chronic Kidney Disease Stage 2 Due To Type 2 Diabetes Mellitus,Venous Insufficiency,Hyp erlipidemia Due To Type 2 Diabetes Mellitus,Diabetes Mellitus Type 2 Insurance Includes: Active Insurance Policies Plan Name Member ID Group # Subscriber Relationship Effect reynaldo Dates 1 - [facility] [id number] FAIZAN Webster 03/10/2023 - Unknown 2 - MEDICARE PART A CLAIMS/NGS [id number] FAIZAN Webster Clinical Notes Includes: Clinical Notes from this encounter * Progress note Date Encounter Last Documented by 08/13/2023 CHECK UP Last documented on 08/13/2023; 1:34 PM, TOM LILLY M.D.; [facility] Active Problems & Conditions - N18.2 - Chronic Kidney Disease Stage 2 Due To Type 2 Diabetes Mellitus - E11.9 - Diabetes Mellitus Type 2 - I10 - Essential Hypertension - F41.1 - Generalized Anxiety Disorder - E78.5 - Hyperlipidemia Due To Type 2 Diabetes Mellitus - D50.9 - Iron Deficiency Anemia - G47.30 - Nonorganic Sleep Apnea Adult - E66.8 - Obesity Morbid - I87.2 - Venous Insufficiency - E55.9 - Vitamin D Deficiency Chief Complaint The Chief Complaint is: Checkup, was in er wirh respiratory failure, pneumonia, and sepsis. Reason For Visit Visit for: Diabetes Followup, visit for: Anxiety Followup, and visit for: Hypertension follow-up. History of Present Illness FAIZAN BEACH is a 48 year old female. Was in hospital bec of Pneumonia Resp Failure/ Kidney Failure now on Basaglar/ Humalog on Sodium Biacrd has a lot of weight gain swelling now on Torsemide/ Metolazone edema now improving/ losing weight still weak unable to work seeing Dr Dasilva/ Dr Rivera/ Nephrology need to discuss with nephrology the bicard pills/ Epogen/ iron infusion. - Allergy list reviewed - Medication list reviewed Current Medication - amLODIPine Besylate 10 MG Oral Tablet TAKE 1 TABLET BY MOUTH EVERY DAY, 90 days, 0 refills - Aspirin Adult Low Dose 81 MG Oral Tablet Delayed Release 0 days, 0 refills - Basaglar KwikPen 100 UNIT/ML Subcutaneous Solution Pen-injector 40 u at night, 30 days, 0 refills - BD Pen Needle Mini U/F 31G X 5 MM Miscellaneous 31G X 5 MM as directed, 30 days, 1 refills - Carvedilol 25 MG Oral Tablet TAKE 1 TABLET BY MOUTH TWICE DAILY, 90 days, 0 refills - [facility] Vitamin B12 1000 MCG Oral Tablet One tablet daily, 90 days, 1 refills - Dexcom G6 Transmitter Miscellaneous USE DIRECTED TO CHECK BLOOD SUGAR, 30 days, 2 refills - diazePAM 10 MG Oral Tablet TAKE 1 TABLET BY MOUTH THREE TIMES DAILY, 28 days, 0 refills - FeroSul 325 (65 Fe) MG Oral Tablet One tablet daily 0 days, 0 refills - Folic Acid 1 MG Oral Tablet One tablet daily, 90 days, 1 refills - Global Ease Inject Pen Monument 31G X 5 MM Miscellaneous 31G X 5 MM DIRECTED TEST THREE TIMES DAILY, 90 days, 1 refills - HumaLOG KwikPen 100 UNIT/ML Subcutaneous Solution Pen-injector 14 u with meals, 30 days, 0 refills - Jardiance 25 MG Oral Tablet One tablet daily, 90 days, 0 refills - metOLazone 2.5 MG Oral Tablet 30 days, 0 refills - Sodium Bicarbonate 650 MG Oral Tablet 0 days, 0 refills - Torsemide 10 MG Oral Tablet 90 days, 0 refills - Veltassa 8.4 GM Oral Packet once daily, 0 days, 0 refills - Vitamin D3 125 MCG (5000 UT) Oral Capsule One tablet daily, 90 days, 1 refills Past Medical/Surgical History Reported: LMP: 06/23/2023 and Contraception: btl. Recent Events: Patient's noncompliance with diet and exercise program noncompliance. Medical: Previous hospitalizations. A self-exam of the feet was performed and Vaccine history. No recent insulin (hypoglycemic) reaction. Currently wearing eyeglasses, Diabetes, Arthritis, and Hypertension. Surgical / Procedural: Surgical / procedural history c section x 3 1991,1993, and 2002. Prior surgery Csectionx3. Tests: Systolic blood pressure 140 mmHg, diastolic was 90 mmHg, a mammogram was performed 2018, home blood sugar check was self-performed, and urine protein was checked. Exposure: Contact with and (Suspected) exposure to COVID-19 Date COVID symptoms started:. : 3, para 3, history of the : section, and No. of Pregnancies: 3. Sexual: Sexually active. In monogamous relationship. Other: Screening mammogram was performed 2021 -- at [facility] Diagnoses: Essential hypertension. Diabetes mellitus Type 2 diabetes mellitus. Arthritis. Anxiety disorder NOS Surgeries: C-sections 1991,1993,2002. 2013 admitted for extended migraine. Illnesses: diabetes, hypertension, OA, Herpes type 1, migraine, Vit D def. Procedural: - Pap smear done 2014 Surgical: - Tubal ligation 2002 - section Social History Personal: No work-related circumstances. Current diet: Eats breakfast regularly, a high-sugar diet, the diet needs improvement, frequent high carbohydrate meals, and missing meals. Caffeine use: No caffeine use. Tobacco use: No tobacco use and not a current smoker. Former smoker stopped smoking years ago 1996, current nonsmoker, and non-smoker. Alcohol: No consumption of alcohol and not using alcohol. Drug Use: Not using drugs. Habits: Amount of sleep. Exercising regularly and good exercise habits. Housing And Economic Circumstances: Lives with spouse and durable medical equipment: wheelchair. 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 Marital: Marital history and currently . Sexual: Sexually active with 1 partners in the last year. Travel: No travel. 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 . No alcohol, drugs, tobacco, vaping. Diet: regular. Exercise: none. Allergies - cephalexin - Cipro - Demerol - Farxiga (Intolerance) Reaction: yeast vaginitis (Mild) - Floxin Otic - Morphine Sulfate Family History 5 children Cancer Colon cancer - maternal granfather eye cancer - maternal grandmother Heart disease Family history unchanged FMHx: PGF from lightning strike. PGM - DM, HTN, [place] age 66. MGF - Alzheimer's 1985. MGM - eye cancer. Uncle - HTN, DM, Kidney failure. Uncle COPD. Mother: HTN, anxiety, COPD Arthritis Systemic hypertension Diabetes mellitus Migraine headache Anxiety disorder NOS Malignant neoplasm of large intestine M GRANDFATHER Malignant female breast neoplasm P. GREAT AUNT Paternal: Heart disease Maternal: Systemic hypertension Paternal grandfather's: Malignant neoplasm of large intestine Paternal grandmother's: Diabetes mellitus paternal aunt and uncle Review Of Systems Systemic: Feeling tired. No fever, no chills, and no night sweats. Edema. Head: No headache. Cardiovascular: No chest pain or discomfort, no palpitations, and no intermittent leg claudication. Pulmonary: Dyspnea expressed as feeling short of breath and during exertion. No paroxysmal nocturnal dyspnea, no orthopnea, no cough, not coughing up sputum, no hemoptysis, and no wheezing. Gastrointestinal: Normal appetite and no polyphagia. No early satiety, no abdominal pain, and no melena. No diarrhea and no constipation. Genitourinary: No hematuria, no change in urinary frequency, and no polyuria. No dysuria. Endocrine: No polydipsia. Musculoskeletal: No muscle aches and no arthralgias. Localized soft tissue swelling in both legs below the knees. Neurological: No dizziness and no fainting. Physical Findings - Vitals taken 08/13/2023 11:15 am BP-Sitting 168/78 mmHg 100 - 120/56 - 80 Pulse Rate-Sitting 82 bpm 50 - 100 Respiration Rate 19 per min 18 - 26 Temp-Oral 98.6 F 96 - 101 Height 64 in 59 - 69 Weight 342 lbs 9.6 oz 98 - 183 Body Mass Index 58.8 kg/m2 Body Surface Area 2.5 m2 Oxygen Saturation 97 % 93 - 100 Standard Measurements: - Patient was observed to be obese. General Appearance: - Well hydrated. - Well developed. - In no acute distress. Neck: - Normal No lymphadenopathy, no neck masses, trachea midline. Eyes: General/bilateral: - Eyes: normal Anicteric, pink conjunctivae, eyelids are normal. Pupils: - PERRL Pupils equally reactive to light and accomodation. Lungs: - Respiration rhythm and depth was normal Normal respiratory pattern/ effort. - Clear to auscultation No Rales, No rhonchi, No Wheezing. Cardiovascular: Auscultation: - Normal No Murmurs, Rubs or Gallops. Heart Rate And Rhythm: - Normal Regular rate and Rhythm. Edema: - Present. Neurological: - Oriented to time, place, and person. Psychiatric: Psychiatric: Value Normal Range PHQ9 score: 3 Mood: - Euthymic Appropriate mood and affect. 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) - N18.2 - Chronic kidney disease, stage 2 (mild) - N18.2 - Chronic kidney disease, stage 2 (mild) - E78.5 - Hyperlipidemia, unspecified - E78.5 - Hyperlipidemia, unspecified - E55.9 - Vitamin D deficiency, unspecified - E55.9 - Vitamin D deficiency, unspecified - E66.8 - Other obesity - E66.8 - Other obesity - E11.9 - Type 2 diabetes mellitus without complications - E11.9 - Type 2 diabetes mellitus without complications - F41.1 - Generalized anxiety disorder - F41.1 - Generalized anxiety disorder - D50.9 - Iron deficiency anemia, unspecified - D50.9 - Iron deficiency anemia, unspecified Previous Tests - Test: .BB CROSSMATCH 1 UNIT (LAB ONLY) Report Date: 07/19/2023 .BB CROSSMATCH 1 UNIT (LAB ONLY) Antibody Screen None Detected Crossmatch Compatible Donor's Type A Positive - Test: CBC WITH DIFF Report Date: 07/31/2023 ALC 1.5 ANC 5.8 BASO# 0.05 th/uL BASO% 0.6 % CBC WITH DIFF DIFF (Y/N) NO EOS# 0.54 th/uL High EOS% 6.3 % HCT 27.3 % Low HGB 9.0 g/dL Low IG# 0.06 th/ul IG% 0.7 % High LYMPH# 1.49 th/uL LYMPH% 17.4 % MCH 28.1 pg MCHC 33.0 g/dL MCV 85.3 fl MONO# 0.53 th/uL MONO% 6.2 % MPV 10.3 fl NEUT# 5.87 th/uL NEUT% 68.8 % NRBC% 0.0 % PLT 332 th/uL RBC 3.20 mil/uL Low RDW 15.1 % WBC 8.5 th/uL - Test: CMP Report Date: 08/12/2023 A/G RATIO 0.8 Low AGE 48 YEARS ALBUMIN 2.7 g/dL Low ALK PHOS 58 IU/L ALT (SGPT) 17 IU/L ANION GAP 14.6 mmol/L AST (SGOT) 14 IU/L BILIRUBIN TOT 0.3 mg/dL BUN 31 mg/dL High CALCIUM 9.5 mg/dL CHLORIDE 104 mmol/L CMP CREATININE 2.2 mg/dL High eGFR. 27 mL/min GLOBULIN 3.2 g/dl GLUCOSE 348 mg/dL High POTASSIUM 4.6 mmol/L SODIUM 138 mmol/L TCO2 24.0 mmol/L TOTAL PROTEIN 5.9 g/dL Low Therapy - Assessment of suicide risk performed Counseling/Education - Plan of care reviewed and agreed to current plan of treatment Reviewed and Discussed lab test results with Patient. Plan StartCited - Iron deficiency anemia, unspecified Lab: IRON STUDIES Lab: A1C HGB (GLYCO HEMOGLOBIN) Lab: CMP Lab: CBC WITH DIFF EndCited StartCited - Other Follow-up Follow up in 1 month with labs before. EndCited - Return to the clinic if condition worsens or new symptoms arise - Continue current medication - Modify drug dosage Inc Jardiance to 25 mg a day Inc Basaglar to 30 u 2 x a day - Patient to call if problem develops Practice Management Use of tobacco assessment performed Review of medications documented; Standardized depression screening: negative for symptoms and for adult impression and score three.
--- OUTSIDE RECORDS SUMMARY | 2024-05-13 01:44 | XMS_ITS | Clinical Summary ---
Author Organization [facility] Address [address] [place] [id number] Care Team Providers Care Brass Pickler Name Role Phone Matias Warren MD Primary Care Provider + [phone] Allergies Active Allergy Reactions Criticality Noted Date [...] unspecified whether acute organ dysfunction present 07/20/2023 Surgical History Surgery Date Site/Laterality Comments OTHER SURGICAL HISTORY Panic attack SECTION TUBAL LIGATION Medical History Medical History Date Comments Diabetes mellitus (HCC) Diabetes mellitus Hypertension Family History Medical History Relation Name Comments Other Brother 2 Alive and well; Hypertension Mother Hypertension; Other Mother Alive and well; Other Sister 2 Alive and well; Relation Name Status Comments Brother 1 Alive Brother 2 Mother Alive Sister 1 Alive Sister 2 Social History Tobacco Use Types Packs/Day Years Used Date Smoking Tobacco: Former Cigarettes 2 - 2015 Smokeless Tobacco: Never Tobacco Cessation:Counseling Given: Not Answered Alcohol Use Standard Drinks/Week Comments No 0 (1 standard drink = 0.6 oz pur e alcohol) [facility] Utilities Answer Date Recorded In the past 12 months has th e electric, gas, oil, or water company threatened to shut off services in your [...] often do you attend chur ch or restoration services? Never 07/23/2023 Do you belong to any clubs o r organizations such as jehovah's witness groups, unions, fraternal or athletic groups, or [...] place to sleep or slept in a usp (including now)? 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 Gender Identity Not on file Sexual Orientation Not on file Obstetrics History Last Filed Vital Signs Vital Sign Reading [...] 08/12/2023 1:51 PM CDT Plan of Treatment Health Maintenance Due Date Last Done Comments Breast Cancer Screening-Mammogram 1974 Cervical Cancer Screening 1974 Colon Cancer Screening-Colonoscopy 1974 Depression Screening 1974 Hepatitis C Screening 1974 Regular Well Visit/Exam 18-64 1992 Pneumococcal vaccine <65 (1 of 2 - PCV) 1993 Covid-19 Vaccine (3 - 2023-2 5 season) 2023 06/09/2020, 05/12/2020 Influenza Vaccine (#1) 2023 , 12/06/2019, 12/03/2019, Additional history exists Zoster Vaccine (1 of 2) 2024 DTaP/Tdap/Td Vaccine (3 - Td or Tdap) 10/20/2024 10/20/2014, 10/10/2014, 03/10/2004 Hepatitis B Screening Completed 10/10/2014 Insurance [employer] MEDICARE [employer] MEDICARE [facility] MEDICARE [facility] Member Subscriber Plan / Payer (Ef fective 2023-Present) Name:John Beachn R Relation to Subscriber:Self Name:John Beachn Elsie Payer ID:[id number] (NAIC) Type:BC YANIQUE Address: [address] [place] [id number] Advance Directives For more information, please contact: [phone] * Full Code (Latest Code Status on File) Date Activated Date Inactivated Comments 07/23/2023 3:39 PM 07/25/2023 6:34 PM Care Teams Brass Pickler Relationship Specialty Start Date End Date Matias Warren MD [address] [place] [id number] PCP - General Internal Medicine 07/20/23
[2024-05-13 01:45] LABS: Device OTHER DEVICE; Modified Allen's Test Pass; Site Drawn RIGHT RADIAL
--- OUTSIDE RECORDS SUMMARY | 2024-05-13 01:45 | XMS_ITS | Clinical Summary ---
Author Organization [facility] Address [address] [place] [address] Phone Care Team Providers Care Advertising Campaign Manager Name Role Phone ИВАН LILLY MD Primary Care Provider [phone] MAXX Melgar, TOM Acosta [phone] Reason for Visit and Chief Complaint WOUND CHECK - NEW PATIENT Problems Includes: Problems addressed during this encounter and other active Problems All Visits Onset Date Resolved Date Provider Condition S tatus Diabetes Mellitus Type 2 07/14/2023 TOM LILLY M.D. Active Last Documented On 4 4:48PM ; [facility] Chronic Kidney Disease Stage 2 Due To Type 2 Diabetes Mellitus 06/30/2023 LAURA JOHN B C Active Last Documented On 4 1:29PM ; [facility] Hyperlipidemia Due To Type 2 Diabetes Mellitus 06/30/2023 LAURA MOSER Activ e Last Documented On 4 1:31PM ; [facility] Note: elevated crp Venous Insufficiency 06/30/2023 LAURA MOSER Active Last Documented On 4 1:30PM ; [facility] Iron Deficiency Anemia 02/11/2022 TOM INMAN M.D. Active Last Documented On 2 5:00PM ; [facility] Nonorganic Sleep Apnea Adult 05/21/2021 TOM LILLY M.D. Active Last Documented On 2 5:37PM ; [facility] Generalized Anxiety Disorder 02/05/2021 SCOOTER L MAURA DO Active Last Documented On 1 9:22AM ; [facility] Obesity Morbid 02/05/2021 SCOOTER Meagan SHAVERMAURA DO Ac tive Last Documented On 1 9:22AM ; [facility] Vitamin D Deficiency 05/24/2020 ARLEY HEATH MD Active Last Documented On 1 4:27PM ; [facility] Essential Hypertension 07/17/2015 CANDIS MANRIQUE MD Active Last Documented On 6 5:39PM ; [facility] Plan of Treatment Care Programs CHRONIC CARE MANAGMENT Last Documented On 1 11:07AM ; [facility] Assessments Includes: Assessments from this encounter No Assessments Recorded Medical Equipment - Implanted Devices Includes: Current Devices No Medical Equipment Recorded Medications Includes: Medications discussed during this encounter and other current Medications Current Medications (continue as prescribed) Diflucan 150 MG Oral Tablet 08/14/2023 Provider: TOM LILLY M.D. Diagnosis: One tablet daily Last Documented On 08/14/2023 11:36AM By ИВАН LILLY MD ; [facility] Sodium Bicarbonate 650 MG Oral Tablet 08/13/2023 Pro vider: Diagnosis: Last Documented On 08/13/2023 11:26AM By Marques MAGDALENO ; [facility] diazePAM 10 MG Oral Tablet 08/11/2023 Provider: TOM LILLY M.D. Diagnosis: Generalized anxi ety disorder TAKE 1 TABLET BY MOUTH THREE TIMES DAILY Last Documented On 08/11/2023 8:59AM By ИВАН LILLY MD ; [facility] amLODIPine Besylate 10 MG Oral Tablet 08/10/2023 Provider: TOM LILLY M.D. Diagnosis: Essential (prima ry) hypertension TAKE 1 TABLET BY MOUTH EVERY DAY Last Documented On 08/10/2023 9:13PM By ИВАН LILLY MD ; [facility] Jardiance 25 MG Oral Tablet 08/10/2023 Provider: TOM LILLY M.D. Diagnosis: Type 2 diabetes mellitus with hyperglycemia One tablet daily Last Documented On 08/10/2023 9:13PM By ИВАН LILLY MD ; [facility] Torsemide 10 MG Oral Tablet 08/09/2023 Provider: VIRGILIO SAENZ MD Diagnosis: Last Documented On 08/13/2023 11:26AM By Marques MAGDALENO ; [facility] metOLazone 2.5 MG Oral Tablet 08/08/2023 Provider: HARPER FISHER MD Diagnosis: Last Documented On 08/13/2023 11:26AM By Marques MAGDALENO ; [facility] BD Pen Needle Mini U/F 31G X 5 MM Miscellaneous 08/07/2023 Provider: TOM Diaz Diagnosis: Type 2 diabetes mellitus without complications as directed Last Documented On 08/07/2023 11:48AM By ИВАН LILLY MD ; [facility] Basaglar KwikPen 100 UNIT/ML Subcutaneous Solution Pen-injector 07/31/2023 Provider: TOM Ma Diagnosis: 40 u at night Last Documented On 4 8:36AM By TRINH TEJADA ; [facility] FeroSul 325 (65 Fe) MG Oral Tablet 07/31/2023 Provid er: Diagnosis: Last Documented On 4 8:36AM By TRINH TEJADA ; [facility] HumaLOG KwikPen 100 UNIT/ML Subcutaneous Solution Pen-injector 07/28/2023 Provider: TOM Ma Diagnosis: 14 u with meals Last Documented On 4 8:36AM By TRINH TEJADA ; [facility] Folic Acid 1 MG Oral Tablet 05/19/2023 Provider: TOM LILLY M.D. Diagnosis: Deficiency of ot her specified B group vitamins One tablet daily Last Documented On 4 8:36AM By TRINH TEJADA ; [facility] Dexcom G6 Transmitter Miscellaneous 03/03/2023 Provider: TOM LILLY M.D. Diagnosis: Type 2 diabetes mellitus with hyperglycemia USE DIRECTED TO CHECK BLOOD SUGAR Last Documented On 4 8:36AM By TRINH TEJADA ; [facility] Veltassa 8.4 GM Oral Packet 12/10/2022 Provider: Diagnosis: once daily Last Documented On 4 8:36AM By TRINH TEJADA ; [facility] Aspirin Adult Low Dose 81 MG Oral Tablet Delayed Relea se 12/10/2022 Provider: Diagnosis: Last Documented On 4 8:36AM By TRINH TEJADA ; [facility] Global Ease Inject Pen Needl es 31G X 5 MM Miscellaneous 11/08/2022 Provider: TONY [place] Diagnosis: DIRECTED TEST THREE TIMES DAILY Last Documented On 4 8:36AM By TRINH TEJADA ; [facility] Vitamin D3 125 MCG (5000 UT) Oral Capsule 10/09/2022 Provider: TOM LILLY M.D. Diagnosis: Vitamin D defici ency, unspecified One tablet daily Last Documented On 4 8:36AM By TRINH TEJADA ; [facility] Vitamin B12 1000 MCG Oral Tablet 10/09/2022 Provider: TOM LILLY M.D. Diagnosis: Deficiency of ot her specified B group vitamins One tablet daily Last Documented On 4 8:36AM By TRINH TEJADA ; [facility] Medications Administered Includes: Administered Medications from this encounter No Administered Medications Recorded Results Includes: Results discussed during this encounter No Results Recorded For Specified Dates History of Present Illness Includes: History of Present Illness from this encounter No History of Present Illness Recorded Social History No Social History Recorded - Smoking Status Unknown Procedures and Surgical History Includes: Procedures from this encounter Procedures Code Diagnosis Performing Provider Service Location Service Date UNNA BOOT APPLICATION (LEFT) [address] Chronic venous hypertension w ulcer of l low extrem [facility]ULIANO [facility]ARTINEZ [facility] 08/18/2023 Last Documented On 4 11:24AM ; [facility] Medical History Includes: Medical History addressed during [...] tive Last Documented On 4 11:14AM ; [facility] Floxin Otic Allergy 07/26/2014 Active Last Documented On 4 11:14AM ; [facility] Farxiga Intolerance yeast vaginitis 12/24/2021 A ctive Last Documented On 4 11:14AM ; [facility] Demerol Allergy 07/26/2014 Active Last Documented On 4 11:14AM ; [facility] Cipro Allergy 07/26/2014 Active Last Documented On 4 11:14AM ; [facility] cephalexin Allergy 07/26/2014 Active Last Documented On 4 11:14AM ; [facility] Encounters Encounter Provider Location Date Check-In Time Check- Out Time Diagnosis WOUND CHECK - NEW PATIENT JULIANO MARTINEZ DO [facility] 4 2:00PM 2:55PM Insurance Includes: Active Insurance Policies Plan Name Member ID Group # Subscriber Relationship Effect reynaldo Dates 1 - [facility] [id number] FAIZAN Webster 03/10/2023 - Unknown 2 - MEDICARE PART A CLAIMS/NGS [id number] FAIZAN Webster Clinical Notes Includes: Clinical Notes from this encounter No Clinical Notes Recorded
--- OUTSIDE RECORDS SUMMARY | 2024-05-13 01:45 | XMS_ITS | Clinical Summary ---
Author Organization [facility] Address [address] [place] [address] Phone Care Team Providers Care Car Spotter Name Role Phone ИВАН LILLY MD Primary Care Provider [phone] MAXX Melgar, TOM Acosta [phone] Reason for Visit and Chief Complaint WOUND CHECK - EST PATIENT Problems Includes: Problems addressed during this encounter and other active Problems All Visits Onset Date Resolved Date Provider Condition S tatus Diabetes Mellitus Type 2 07/14/2023 TOM LILLY M.D. Active Last Documented On 4 4:48PM ; [facility] Chronic Kidney Disease Stage 2 Due To Type 2 Diabetes Mellitus 06/30/2023 LAURA FONTENOT RN AVA B C Active Last Documented On 4 1:29PM ; [facility] Hyperlipidemia Due To Type 2 Diabetes Mellitus 06/30/2023 LAURA FONTENOT RN AVA BC Activ e Last Documented On 4 1:31PM ; [facility] Note: elevated crp Venous Insufficiency 06/30/2023 LAURA MOSER Active Last Documented On 4 1:30PM ; [facility] Iron Deficiency Anemia 02/11/2022 TOM INMAN M.D. Active Last Documented On 2 5:00PM ; [facility] Nonorganic Sleep Apnea Adult 05/21/2021 TOM LILLY M.D. Active Last Documented On 2 5:37PM ; [facility] Generalized Anxiety Disorder 02/05/2021 SCOOTER L MAURA DO Active Last Documented On 1 9:22AM ; [facility] Obesity Morbid 02/05/2021 SCOOTERJose LORENZO DO Ac tive Last Documented On 1 9:22AM ; [facility] Vitamin D Deficiency 05/24/2020 ARLEY HEATH MD Active Last Documented On 1 4:27PM ; [facility] Essential Hypertension 07/17/2015 CANDIS MANRIQUE MD Active Last Documented On 6 5:39PM ; [facility] Plan of Treatment Care Programs CHRONIC CARE MANAGMENT Last Documented On 1 11:07AM ; [facility] Assessments Includes: Assessments from this encounter No Assessments Recorded Medical Equipment - Implanted Devices Includes: Current Devices No Medical Equipment Recorded Medications Includes: Medications discussed during this encounter and other current Medications Current Medications (continue as prescribed) Diflucan 150 MG Oral Tablet 08/14/2023 Provider: TOM LILLY M.D. Diagnosis: One tablet daily Last Documented On 08/14/2023 11:36AM By ИВАН LILLY MD ; [facility] Sodium Bicarbonate 650 MG Oral Tablet 08/13/2023 Pro vider: Diagnosis: Last Documented On 08/13/2023 11:26AM By Marques Peters Jose ; [facility] diazePAM 10 MG Oral Tablet 08/11/2023 Provider: TOM LILLY M.D. Diagnosis: Generalized anxi ety disorder TAKE 1 TABLET BY MOUTH THREE TIMES DAILY Last Documented On 08/11/2023 8:59AM By ИВАН LILLY MD ; [facility] amLODIPine Besylate 10 MG Oral Tablet 08/10/2023 Provider: TOM LILLY M.D. Diagnosis: Essential (prima ry) hypertension TAKE 1 TABLET BY MOUTH EVERY DAY Last Documented On 08/10/2023 9:13PM By ИВАН LILLY MD ; [facility] Jardiance 25 MG Oral Tablet 08/10/2023 Provider: TOM LILLY M.D. Diagnosis: Type 2 diabetes mellitus with hyperglycemia One tablet daily Last Documented On 08/10/2023 9:13PM By ИВАН LILLY MD ; [facility] Torsemide 10 MG Oral Tablet 08/09/2023 Provider: VIRGILIO SAENZ MD Diagnosis: Last Documented On 08/13/2023 11:26AM By Marques MAGDALENO ; [facility] metOLazone 2.5 MG Oral Tablet 08/08/2023 Provider: HARPER FISHER MD Diagnosis: Last Documented On 08/13/2023 11:26AM By Marques MAGDALENO ; [facility] BD Pen Needle Mini U/F 31G X 5 MM Miscellaneous 08/07/2023 Provider: TOM Diaz Diagnosis: Type 2 diabetes mellitus without complications as directed Last Documented On 08/07/2023 11:48AM By ИВАН LILLY MD ; [facility] Basaglar KwikPen 100 UNIT/ML Subcutaneous Solution Pen-injector 07/31/2023 Provider: TOM Ma Diagnosis: 40 u at night Last Documented On 4 8:36AM By TRINH TEJADA ; [facility] FeroSul 325 (65 Fe) MG Oral Tablet 07/31/2023 Provid er: Diagnosis: Last Documented On 4 8:36AM By TRINH TEJADA ; [facility] HumaLOG KwikPen 100 UNIT/ML Subcutaneous Solution Pen-injector 07/28/2023 Provider: TOM Ma Diagnosis: 14 u with meals Last Documented On 4 8:36AM By TRINH TEJADA ; [facility] Folic Acid 1 MG Oral Tablet 05/19/2023 Provider: TOM LILLY M.D. Diagnosis: Deficiency of ot her specified B group vitamins One tablet daily Last Documented On 4 8:36AM By TRINH TEJADA ; [facility] Dexcom G6 Transmitter Miscellaneous 03/03/2023 Provider: TOM LILLY M.D. Diagnosis: Type 2 diabetes mellitus with hyperglycemia USE DIRECTED TO CHECK BLOOD SUGAR Last Documented On 4 8:36AM By TRINH TEJADA ; [facility] Veltassa 8.4 GM Oral Packet 12/10/2022 Provider: Diagnosis: once daily Last Documented On 4 8:36AM By TRINH TEJADA ; [facility] Aspirin Adult Low Dose 81 MG Oral Tablet Delayed Relea se 12/10/2022 Provider: Diagnosis: Last Documented On 4 8:36AM By TRINH TEJADA ; [facility] Global Ease Inject Pen Needl es 31G X 5 MM Miscellaneous 11/08/2022 Provider: TONY London Diagnosis: DIRECTED TEST THREE TIMES DAILY Last Documented On 4 8:36AM By TRINH TEJADA ; [facility] Vitamin D3 125 MCG (5000 UT) Oral Capsule 10/09/2022 Provider: TOM LILLY M.D. Diagnosis: Vitamin D defici ency, unspecified One tablet daily Last Documented On 4 8:36AM By TRINH TEJADA ; [facility] Vitamin B12 1000 MCG Oral Tablet 10/09/2022 Provider: TOM LILLY M.D. Diagnosis: Deficiency of ot her specified B group vitamins One tablet daily Last Documented On 4 8:36AM By TRINH TEJADA ; [facility] Medications Administered Includes: Administered Medications from this [...] tive Last Documented On 4 11:14AM ; [facility] Floxin Otic Allergy 07/26/2014 Active Last Documented On 4 11:14AM ; [facility] Farxiga Intolerance yeast vaginitis 12/24/2021 A ctive Last Documented On 4 11:14AM ; [facility] Demerol Allergy 07/26/2014 Active Last Documented On 4 11:14AM ; [facility] Cipro Allergy 07/26/2014 Active Last Documented On 4 11:14AM ; [facility] cephalexin Allergy 07/26/2014 Active Last Documented On 4 11:14AM ; [facility] Insurance Includes: Active Insurance Policies Plan Name Member ID Group # Subscriber Relationship Effect reynaldo Dates 1 - [facility] [id number] FAIZAN Webster 03/10/2023 - Unknown 2 - MEDICARE PART A CLAIMS/NGS [id number] FAIZAN Webster Clinical Notes Includes: Clinical Notes from this encounter No Clinical Notes Recorded
--- OUTSIDE RECORDS SUMMARY | 2024-05-13 01:45 | XMS_ITS ---
Author Organization [facility] Address [address] [place] [id number] Care Team Providers Care Software Design Analyst Name Role Phone Kelvin MEMBRENO, Andres Primary Care Provider Rudy Moses Unavailable [phone] REASON FOR VISIT NO SHOW/RESCHEDULED MULTIPLE APPTS Encounters Encounter Location Date Provider Diagnosis [facility] [address] [id number] 06/24/2023 Rudy Veloz PLAN OF TREATMENT No Information
--- OUTSIDE RECORDS SUMMARY | 2024-05-13 01:45 | XMS_ITS | Clinical Summary ---
Author Organization [facility] Address [address] Attn: Epic Prelude [place] [address] Care Team Providers Care Civil Engineering Designer Name Role Phone Unavailable Primary Care Provider Unavailabl e Medications amLODIPine (NORVASC) 10 mg tablet Take 1 Tablet (10 mg) by mouth daily. 90 Tablet 12/20/2023 12:45 PM CDT 12/18/19 24 Active carvediloL (COREG) 25 mg tablet Take 1 Tablet (25 mg) by mouth 2 times daily. 180 Tablet 01/03/2024 3:29 PM CDT 10/31/19 24 Active insulin glargine-yfgn 100 unit/mL vial Inject 60 units at bedtime 30 mL 2 01/29/2024 2:26 PM DIP STAND LOADER 01/28/20 24 Active ergocalciferol (VITAMIN D2) 50,000 unit capsule Take 1 Capsule (50,000 Units) by mouth every 7 days. 13 Capsule 01/29/2024 2:26 PM DIP STAND LOADER 01/28/20 24 Active tirzepatide (Mounjaro) 2.5 mg/0.5 mL Pen Injector Inject 1 pen injector subcutaneously once a week. 2 mL 3 02/18/2024 1:58 PM DIP STAND LOADER 02/10/20 24 Active ezetimibe (Zetia) 10 mg tablet Take 1 Tablet (10 mg) by mouth daily. 90 Tablet 5 02/18/2024 1:58 PM DIP STAND LOADER 02/10/20 24 Active torsemide (DEMADEX) 10 mg Tablet Take 1 tablet by mouth daily 90 Tablet 04/15/2024 6:48 PM DIP STAND LOADER 02/18/20 24 Active torsemide (DEMADEX) 20 mg tablet TAKE ONE TABLET DAILY ALONG WITH A 10 MG TO EQUAL 30 MG DAILY 30 Tablet 5 04/06/2024 6:06 PM DIP STAND LOADER 04/05/19 25 Active insulin glargine-yfgn 100 unit/mL vial Inject 60 units at bedtime 30 mL 2 04/09/19 25 Active insulin lispro (HumaLOG,ADMEL OG) 100 unit/mL pen syringe INJECT 14 UNITS WITH MEALS 15 mL 2 04/12/2024 3:26 PM DIP STAND LOADER 04/09/19 25 Active Insulin Syringe-Needle U-100 (BD Insulin Syringe Ultra-Fine) 1 mL 31 gauge x 5/16 Syringe USE FOR INSULIN INJECTIONS 200 Each 04/12/2024 3:26 PM DIP STAND LOADER 04/09/19 25 Active ferrous sulfate 325 mg (65 mg iron) tablet Take 1 Tablet (325 mg) by mouth daily. 100 Tablet 04/12/2024 3:26 PM DIP STAND LOADER 04/09/19 25 Active patiromer calcium sorbitex (Veltassa) 25.2 gram Powder in Packet powder Drink 1 packet dissolved in water once a day. Mix with 1/3 cup of water and drink daily. 30 Packet 11 04/09/19 25 Active patiromer calcium sorbitex (Veltassa) 16.8 gram Powder in Packet powder Drink 1 packet dissolved in water once a day. Mix with 1/3 cup of water and drink daily 30 Packet 11 04/12/2024 3:26 PM DIP STAND LOADER 04/09/19 25 Active empagliflozin (JARDIANCE) 25 mg tablet Take 1 Tablet (25 mg) by mouth daily in the morning. 90 Tablet 04/12/2024 3:26 PM DIP STAND LOADER 04/12/19 25 Active benzonatate (TESSALON) 200 mg capsule Take 1 Capsule (200 mg) by mouth every 8 hours as needed for cough. 30 Capsule 04/15/2024 6:48 PM DIP STAND LOADER 04/15/19 25 Active amoxicillin (AMOXIL) 500 mg capsule Take 1 Capsule (500 mg) by mouth 3 times daily for 7 days. 21 Capsule 04/15/2024 6:48 PM DIP STAND LOADER 04/15/19 25 025 Encounters Date Type Department Care Team Description 04/28/2024 External Device Data [facility] Provider, Abstract 04/20/2024 External Device Data [facility] Provider, Abstract 04/07/2024 External Device Data [facility] Provider, Abstract 04/01/2024 External Device Data [facility] Provider, Abstract from Last 3 Months Social History Tobacco Use Types Packs/Day Years Used Date Smoking Tobacco: Never Assessed Comments Unknown Sex and Gender Information Value Date Recorded Sex Assigned at Not on file Legal Sex Female 4:57 PM CDT Gender Identity Not on file Sexual Orientation Not on file Plan of Treatment Health Maintenance Due Date Last Done Comments DIABETES ANNUAL FOOT EXAM 1992 DIABETES ANNUAL RETINAL EXAM 1992 DIABETES MICROALBUMIN ANNUAL SCREEN 1992 LDL CHOLESTEROL ANNUAL 1992 DTAP/TDAP/TD VACCINES (1 - Tdap) 1993 HEPATITIS B VACCINES (1 of 3 - 19+ 3-dose series) 04/11 CERVICAL CANCER SCREENING 2004 BREAST CANCER SCREENING 2014 COLORECTAL SCREENING 2019 Colorectal Cancer Screening 2019 FIT-DNA Q 3 years 2019 FIT/FOBT Q 1 year 2019 Flex Sig/CT Colonography Q 5 years 2019 INFLUENZA VACCINE (#1) 2023 03/10/2010 DIABETES HBA1C Q 6 MONTHS 01/21/2024 07/21/2023 ZOSTER VACCINE (1 of 2) 2024 Insurance RX [employer] (INTERNAL) [facility] [employer] RX [employer] Member Subscriber Plan / Payer (Ef fective 2024-Present) Name:Joann Tavares Relation to Subscriber:Self Name:Joann Tavares Subscriber ID:Not on file Payer ID:Not on file Type:Not on file Address: [address]
--- OUTSIDE RECORDS SUMMARY | 2024-05-13 01:46 | XMS_ITS ---
Care Plan - [facility] Created on: May 13, 2024 FAIZAN BEACH : 1975 Sex: Female Author Organization [facility] Address [address] [place] [address] Phone Care Team Providers Care Operating System Designer Name Role Phone MAXX MEMBRENO, ИВАН Primary Care Provider [phone] MAXX Melgar, TOM Ac Unavailable [phone]
--- OUTSIDE RECORDS SUMMARY | 2024-05-13 01:46 | XMS_ITS | Clinical Summary ---
Author Organization [facility] Address [address] [place] [address] Phone Care Team Providers Care Alarm Signaler Name Role Phone ИВАН LILLY MD Primary Care Provider [phone] MAXX Melgar, TOM Acosta [phone] Reason for Visit and Chief Complaint WOUND CHECK - EST PATIENT Problems Includes: Problems addressed during this encounter and other active Problems All Visits Onset Date Resolved Date Provider Condition S tatus Diabetes Mellitus Type 2 07/14/2023 TOM LILLY M.D. Active Last Documented On 4 4:48PM ; [facility] Chronic Kidney Disease Stage 2 Due To Type 2 Diabetes Mellitus 06/30/2023 LAURA JOHN B C Active Last Documented On 4 1:29PM ; [facility] Hyperlipidemia Due To Type 2 Diabetes Mellitus 06/30/2023 LAURA MOSER Activ e Last Documented On 4 1:31PM ; [facility] Note: elevated crp Venous Insufficiency 06/30/2023 LAURA MOSER Active Last Documented On 4 1:30PM ; [facility] Iron Deficiency Anemia 02/11/2022 TOM INMAN M.D. Active Last Documented On 2 5:00PM ; [facility] Nonorganic Sleep Apnea Adult 05/21/2021 TOM LILLY M.D. Active Last Documented On 2 5:37PM ; [facility] Generalized Anxiety Disorder 02/05/2021 SCOOTER L MAURA DO Active Last Documented On 1 9:22AM ; [facility] Obesity Morbid 02/05/2021 SCOOTER Meagan SHAVERMAURA DO Ac tive Last Documented On 1 9:22AM ; [facility] Vitamin D Deficiency 05/24/2020 ARLEY HEATH MD Active Last Documented On 1 4:27PM ; [facility] Essential Hypertension 07/17/2015 CANDIS MANRIQUE MD Active Last Documented On 6 5:39PM ; [facility] Plan of Treatment Care Programs CHRONIC CARE MANAGMENT Last Documented On 1 11:07AM ; [facility] Assessments Includes: Assessments from this encounter No Assessments Recorded Medical Equipment - Implanted Devices Includes: Current Devices No Medical Equipment Recorded Medications Includes: Medications discussed during this encounter and other current Medications Current Medications (continue as prescribed) Diflucan 150 MG Oral Tablet 08/14/2023 Provider: TOM LILLY M.D. Diagnosis: One tablet daily Last Documented On 08/14/2023 11:36AM By ИВАН LILLY MD ; [facility] Sodium Bicarbonate 650 MG Oral Tablet 08/13/2023 Pro vider: Diagnosis: Last Documented On 08/13/2023 11:26AM By Marques MAGDALENO ; [facility] diazePAM 10 MG Oral Tablet 08/11/2023 Provider: TOM LILLY M.D. Diagnosis: Generalized anxi ety disorder TAKE 1 TABLET BY MOUTH THREE TIMES DAILY Last Documented On 08/11/2023 8:59AM By ИВАН LILLY MD ; [facility] amLODIPine Besylate 10 MG Oral Tablet 08/10/2023 Provider: TOM LILLY M.D. Diagnosis: Essential (prima ry) hypertension TAKE 1 TABLET BY MOUTH EVERY DAY Last Documented On 08/10/2023 9:13PM By ИВАН LILLY MD ; [facility] Jardiance 25 MG Oral Tablet 08/10/2023 Provider: TOM LILLY M.D. Diagnosis: Type 2 diabetes mellitus with hyperglycemia One tablet daily Last Documented On 08/10/2023 9:13PM By ИВАН LILLY MD ; [facility] Torsemide 10 MG Oral Tablet 08/09/2023 Provider: VIRGILIO SAENZ MD Diagnosis: Last Documented On 08/13/2023 11:26AM By Marques MAGDALENO ; [facility] metOLazone 2.5 MG Oral Tablet 08/08/2023 Provider: HARPER FISHER MD Diagnosis: Last Documented On 08/13/2023 11:26AM By Marques MAGDALENO ; [facility] BD Pen Needle Mini U/F 31G X 5 MM Miscellaneous 08/07/2023 Provider: TOM Diaz Diagnosis: Type 2 diabetes mellitus without complications as directed Last Documented On 08/07/2023 11:48AM By ИВАН LILLY MD ; [facility] Basaglar KwikPen 100 UNIT/ML Subcutaneous Solution Pen-injector 07/31/2023 Provider: TOM Ma Diagnosis: 40 u at night Last Documented On 4 8:36AM By TRINH TEJADA ; [facility] FeroSul 325 (65 Fe) MG Oral Tablet 07/31/2023 Provid er: Diagnosis: Last Documented On 4 8:36AM By TRINH TEJADA ; [facility] HumaLOG KwikPen 100 UNIT/ML Subcutaneous Solution Pen-injector 07/28/2023 Provider: TOM Ma Diagnosis: 14 u with meals Last Documented On 4 8:36AM By TRINH TEJADA ; [facility] Folic Acid 1 MG Oral Tablet 05/19/2023 Provider: TOM LILLY M.D. Diagnosis: Deficiency of ot her specified B group vitamins One tablet daily Last Documented On 4 8:36AM By TRINH TEJADA ; [facility] Dexcom G6 Transmitter Miscellaneous 03/03/2023 Provider: TOM LILLY M.D. Diagnosis: Type 2 diabetes mellitus with hyperglycemia USE DIRECTED TO CHECK BLOOD SUGAR Last Documented On 4 8:36AM By TRINH TEJADA ; [facility] Veltassa 8.4 GM Oral Packet 12/10/2022 Provider: Diagnosis: once daily Last Documented On 4 8:36AM By TRINH TEJADA ; [facility] Aspirin Adult Low Dose 81 MG Oral Tablet Delayed Relea se 12/10/2022 Provider: Diagnosis: Last Documented On 4 8:36AM By TRINH TEJADA ; [facility] Global Ease Inject Pen Needl es 31G X 5 MM Miscellaneous 11/08/2022 Provider: TONY London Diagnosis: DIRECTED TEST THREE TIMES DAILY Last Documented On 4 8:36AM By TRINH TEJADA ; [facility] Vitamin D3 125 MCG (5000 UT) Oral Capsule 10/09/2022 Provider: TOM LILLY M.D. Diagnosis: Vitamin D defici ency, unspecified One tablet daily Last Documented On 4 8:36AM By TRINH TEJADA ; [facility] Vitamin B12 1000 MCG Oral Tablet 10/09/2022 Provider: TOM LILLY M.D. Diagnosis: Deficiency of ot her specified B group vitamins One tablet daily Last Documented On 4 8:36AM By TRINH TEJADA ; [facility] Medications Administered Includes: Administered Medications [...] tive Last Documented On 4 11:14AM ; [facility] Floxin Otic Allergy 07/26/2014 Active Last Documented On 4 11:14AM ; [facility] Farxiga Intolerance yeast vaginitis 12/24/2021 A ctive Last Documented On 4 11:14AM ; [facility] Demerol Allergy 07/26/2014 Active Last Documented On 4 11:14AM ; [facility] Cipro Allergy 07/26/2014 Active Last Documented On 4 11:14AM ; [facility] cephalexin Allergy 07/26/2014 Active Last Documented On 4 11:14AM ; [facility] Encounters Encounter Provider Location Date Check-In Time Check- Out Time Diagnosis WOUND CHECK - EST PATIENT JULIANO MARTINEZ DO [facility] 4 3:00PM 3:20PM Insurance Includes: Active Insurance Policies Plan Name Member ID Group # Subscriber Relationship Effect reynaldo Dates 1 - [facility] [id number] FAIZAN Webster 03/10/2023 - Unknown 2 - MEDICARE PART A CLAIMS/NGS [id number] FAIZAN Webster Clinical Notes Includes: Clinical Notes from this encounter No Clinical Notes Recorded
[2024-05-13] MEDS: FUROSEMIDE INJ 40 MG/4 ML VIAL IV PUSH ×3 (01:47→20:03)
--- NOTE | 2024-05-13 02:01 | PC.NURSE ---
Patient educated that her blood pressure is high and the doctor would like her to have nitro to lower. Patient states she does not need it and her blood pressure will go down on it's own when she calms down. Patient educated on hypertension causing shortness of breath. Patient stated it was her anxiety causing all this, but it worsens when she lays flat or takes the CPAP off. Patient asked if she wanted medicine for anxiety; she refused. Patient refused nitrates at this time. EDP made aware.
[2024-05-13 02:02] LABS: Basophils Absolute Auto 0.1 K/mm3 (0.0-0.1); Basophils Percent Auto 0.6 % (0.2-1.2); Eosinophils Absolute Auto 0.9 K/mm3 (0-0.3); Eosinophils Percent Auto 8.4 % (0-4.4); Hematocrit 28.5 % (37.0-47.0); Hemoglobin 9.5 g/dL (12.0-15.0); Immature Granulocyte Absolute 0.04 K/mm3 (0.00-0.031); Immature Granulocyte Percent A 0.4 % (0-0.5); Lymphocytes Percent Auto 11.9 % (18.3-44.2); Mean Corpuscular HGB Conc 33.3 g/dl (32-36); Mean Corpuscular Hemoglobin 31.3 pg (26-34); Mean Corpuscular Volume 93.8 fl (80-100); Mean Platelet Volume 9.9 fl (7.4-10.4); Monocytes Absolute Auto 0.6 K/mm3 (0.1-0.6); Monocytes Percent Auto 6.3 % (2.6-8.5); Neutrophils Absolute Auto 7.3 K/mm3 (1.3-6.7); Neutrophils Percent Auto 72.4 % (45.5-73.1); Platelet Count Result 275 k/mm3 (150-375); Red Blood Count 3.04 M/mm3 (4.2-5.4); Red Cell Distribution Width 14.6 % (11.5-14.5); White Blood Count 10.1 K/mm3 (4.5-10.0)
[2024-05-13 02:15] LABS: Alanine Aminotransferase 21 U/L (6-35); Albumin Level 3.3 g/dL (3.5-5.1); Alkaline Phosphatase 57 U/L (38-126); Anion Gap 8 mmol/L (4-12); Aspartate Amino Transferase 23 U/L (14-36); Bilirubin,Total 0.3 mg/dL (0.2-1.3); Blood Urea Nitrogen 45 mg/dL (7-17); Calcium 10.1 mg/dL (8.4-10.2); Carbon Dioxide 26 mmol/L (22-30); Chloride 102 mmol/L (98-107); Estimated CRCL calculation 30 ml/min; Estimated Glomerular Filt Rate 16; Glucose 205 mg/dL (65-110); Magnesium 2.3 mg/dL (1.6-2.3); Potassium 4.8 mmol/L (3.4-5.0); Sodium 136 mmol/L (137-145)
[2024-05-13 02:16] LABS: Lactic Acid Reflex 0.6 mmol/L (0.7-2.0)
[2024-05-13 02:22] LABS: INR 0.9; Prothrombin Time 12.7 Seconds (11.1-14.7)
[2024-05-13 02:23] LABS: Partial Thromboplastin Time 24.1 Seconds (22.3-36.8)
[2024-05-13 02:26] LABS: NT Pro B Type Natriuretic Pept 1520 pg/mL (19.9-100); Troponin I < 0.012 ng/mL (0.000-0.034)
[2024-05-13 02:38] LABS: Influenza A QL RT-PCR Negative (Negative); Influenza B QL RT-PCR Negative (Negative); RSV RNA, RT-PCR Negative (Negative); SARS-CoV-2 RNA PCR Negative (Negative)
--- NOTE | 2024-05-13 03:35 | P.HP_ITS ---
H&P: HPI History of Present Illness Date/Time: 05/13/24 03:35 Chief Complaint: Shortness of breath. Narrative: This is a pleasant 49-year-old female with history of obstructive sleep apnea on CPAP, hypertension, insulin-dependent diabetes mellitus, chronic kidney disease, and morbid obesity who presented to the emergency department via EMS from home for evaluation of shortness of breath. She gives a 3 to 4 day history of increasing dyspnea on lesser and lesser exertion and is to the point where she can only walk 15 ft without being winded. Her chronic lower extremity edema is worse and she now reports pitting edema up into the lower abdomen. Additionally she reports orthopnea and states that last night when she went to bed she got severely short of breath when trying to lie down and she called 911. On EMS arrival her SpO2 was 92% on room air but due to the patient's feelings of anxiety they placed her on CPAP for comfort with improvement. She had COVID at the end of March and RSV in mid April and denies current cold and flu symptoms. She also denies syncope, near syncope, pleuritic pain, racing heart, nausea, vomiting, calf pain, and sweats. 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 When it gets especially bad she will wear compression stockings and take metolazone. She denies history of congestive heart failure (reports normal echocardiogram in July 2023) or venous thromboembolism. In the ED: Vital signs on arrival include a blood pressure of 220/120, pulse 95, respiratory rate 23, SpO2 100% on CPAP. Labs were significant for a WBC count of 10.1, hemoglobin 9.5, BUN 45, creatinine 3.08, glucose 205, proBNP 1520, troponin less than 0.012. EKG showed a sinus rhythm without concerning ST segment changes. She was given furosemide 40 mg IV and she is being admitted in this setting for further diuresis. Review of Systems Review of Systems: 12 systems were reviewed and are negativ e except for as per HPI. [facility] Past Medical History Medical History (Updated 05/13/24 @ 03:41 by Isabelle Cee PA-C) Morbid obesity Obstructive sleep apnea on CPAP Insulin dependent type 2 diabetes mellitus Chronic anemia Chronic kidney disease, stage 4 (severe) Hypertension Vestibular migraine Surgical History Surgical History (Updated 05/13/24 @ 03:41 by Isabelle Cee PA-C) History of section Family History Family History Other Family history of malignant neoplasm of male breast Social History Social History (Updated 05/13/24 @ 03:42 by Isabelle Cee PA-C) Social History: Surrogate medical decision maker: Marco A Tavares, spouse. Code status: Full code. Smoking status: Former smoker Alcohol intake: never Substance use: never Additional living arrangements comments: Lives with spouse in [place]. They have 3 grown children. 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 Meds Home Medications and Allergies Home Medications ?Medication ?Instructions ?Recorded ?Confirmed ?Type hydrocodone 10 mg-acetaminophen 1 tablet PO Q8H PRN pain #84 tabs 02/13/21 02/26/21 Rx 325 mg tablet insulin aspart U-100 100 unit/mL 1 sliding scale dose subcut 02/26/21 02/26/21 History (3 mL) subcutaneous pen (Novolog USEASDIRECTD FlexPen U-100 Insulin aspart) insulin glargine 100 unit/mL (3 20 unit subcut QAM 02/26/21 02/26/21 History mL) subcutaneous pen (Lantus Solostar U-100 Insulin) insulin lispro 100 unit/mL 1 sliding scale dose subcut 02/26/21 02/26/21 History subcutaneous half-unit pen USEASDIRECTD (Humalog Thien KwikPen (U-100)) lisinopril 10 mg tablet 10 mg PO DAILY 02/26/21 02/26/21 History meclizine 25 mg tablet 25 mg PO TID 02/26/21 02/26/21 History metformin 500 mg tablet 500 mg PO BID 02/26/21 02/26/21 History multivitamin with iron (Daily 1 tablet PO DAILY 02/26/21 02/26/21 History Multiple Vitamins with Iron tablet) Allergies Allergy/AdvReac Type Severity Reaction Status Date / Time cephalexin Allergy Mild RASH Verified 05/13/24 01:27 ofloxacin Allergy Mild RASH Verified 05/13/24 01:27 ciprofloxacin Allergy Unknown Hives Verified 05/13/24 01:27 meperidine Allergy Unknown Hives Verified 05/13/24 01:27 morphine Allergy Unknown Hives Verified 05/13/24 01:27 albuterol AdvReac Migraine Verified 05/13/24 01:27 CIPROFLOXACIN HCL Allergy Mild RASH Uncoded 05/13/24 01:27 MEPERIDINE HCL Allergy Unknown Hives Uncoded 05/13/24 01:27 Vital Signs Vital Signs - 24 hr 05/13/24 01:12 05/13/24 02:31 Temperature 98.0 F Pulse Rate 95 81 Respiratory Rate 23 H 17 Blood Pressure 220/120 H 186/82 H Pulse Oximetry 100 100 Oxygen Delivery Room Air Exam Narrative: General: Nontoxic-appearing female sitting up in bed in no acute distress. Weight: 151.2 kg. BMI: 57.2. HEENT: Normocephalic, atraumatic. PERRL, EOMI. Sclera anicteric. Oral mucosa appears moist do the CPAP. Neck: Supple. Exam limited due to neck circumference. No obvious JVD. Respiratory: Respirations are nonlabored and she is speaking in full sentences through the CPAP mask. Lung sounds are diminished at the bases, likely due to body habitus, and are otherwise clear to auscultation. Cardiovascular: Regular rate and rhythm with S1-S2. Gastrointestinal: Abdomen is morbidly obese and nontender with positive bowel sounds. Mild pitting of the lower abdomen. Skin: Warm and dry. Extremities: No cyanosis or clubbing. Legs are large with 2+ pitting edema from the feet to the lower abdomen. No palpable knots or cords. Negative Giuliana sign bilaterally. Neurological: Alert. Cranial nerves 2-12 are grossly intact. No gross focal deficits to casual conversation. Psychiatric: Pleasant and cooperative with normal mood and affect. Judgment and insight intact. H&P: Results Labs Labs: Short CBC 05/13/24 Range/Units 01:56 WBC 10.1 H (4.5-10.0) K/mm3 Hgb 9.5 L (12.0-15.0) g/dL Hct 28.5 L (37.0-47.0) % Plt Count 275 (150-375) k/mm3 [facility] 05/13/24 01:56 Sodium 136 L Potassium 4.8 Chloride 102 Carbon Dioxide 26 BUN 45 H Creatinine 3.08 H Glucose 205 H Calcium 10.1 Cardiac Enzymes 03/06/25 Range/Units 01:56 Troponin I < 0.012 (0.000-0.034) ng/mL Liver Function 05/13/24 Range/Units 01:56 Total Bilirubin 0.3 (0.2-1.3) mg/dL AST 23 (14-36) U/L ALT 21 (6-35) U/L Alkaline Phosphatase 57 (38-126) U/L Albumin 3.3 L (3.5-5.1) g/dL Assessment and Plan Assessment and plan (1) Volume overload: Code(s): E87.70 - Fluid overload, unspecified Status: Acute (2) Hypertension: Code(s): I10 - Essential (primary) hypertension Status: Acute (3) Chronic kidney disease, stage 4 (severe): Code(s): N18.4 - Chronic kidney disease, stage 4 (severe) Status: Acute (4) Chronic anemia: Code(s): D64.9 - Anemia, unspecified Status: Acute (5) Insulin dependent type 2 diabetes mellitus: Code(s): E11.9 - Type 2 diabetes mellitus without complications; Z79.4 - shelter (current) use of insulin Status: Acute (6) Obstructive sleep apnea on CPAP: Code(s): G47.33 - Obstructive sleep apnea (adult) (pediatric) Status: Acute (7) Morbid obesity: Code(s): E66.01 - Morbid (severe) obesity due to excess calories Status: Acute Plan The patient presented to the emergency department for evaluation of shortness of breath as detailed in HPI. Labs, imaging, EKG, and all reports were personally reviewed. Blood pressure on arrival was 220/120 but has improved with furosemide 40 mg IV. She was also quite anxious when she came in and that is likely a contributing factor. Continue amlodipine, carvedilol, and lisinopril and adjust accordingly depending on how her blood pressure trends. She is volume overloaded with pitting edema up to the lower abdomen and she will be diuresed with close monitoring of volume status, renal function, and electrolytes. Echocardiogram ordered as well as bilateral lower extremity venous Doppler ultrasounds to rule out DVT. She has chronic kidney disease stage 4 and reports that her kidney function and anemia today are stable compared to labs done at her primary care provider within the last several months. Continue basal insulin. Initiate sliding scale insulin, Accu-Cheks, and hypoglycemic protocol. Check hemoglobin A1c. CPAP will be provided for the patient to use while hospitalized. Her home medications will be reviewed and resumed as appropriate. Findings and treatment plan were discussed with the patient. Questions were solicited and answered to satisfaction. The patient's medical management will be taken over by the hospitalist team in a.m. Quality VTE Prophylaxis VTE prophylaxis: pharmacologic ordered The patient has been admitted under observation status. Hospitalist MIPS Advance Care Plan I have confirmed that the patient's Advanced Care Plan is present, code status is documented, or surrogate decision maker is listed in patient medical record.: Yes Medication Reconciliation I have utilized all available resources to obtain, update and review the patients current medications (includes all prescriptions, OTC, herbals, cannabis, and nutritional supplements).: Yes
--- NOTE | 2024-05-13 03:36 | ECHO_ITS ---
Patient Info Name: Joann Tavares Age: 49 years : 1975 Gender: Female Ht: 64 in Wt: 333 lbs BSA: 2.71 m2 HR: 76 bpm BP: 162 / 72 mmHg Technical Quality: Poor Exam Date: 05/13/2024 11:00 AM Exam Location: Echo Lab Patient Status: Outpatient Admit Date: 05/13/2024 Staff Ordering Physician: Isabelle Cee PA-C Record Cutter: Catarina Castillo RDCS Attending Provider: Dennis Joseph MD Referring Physician: Jaye WADE; Exam Type: CA echo dop color flow w con Study Info Indications - Edema, HTN, TARIQ Complete two-dimensional, color flow and Doppler transthoracic echocardiogram is performed with contrast to opacify the left ventricle and to improve the deliniation of the left ventricle endocardial borders. Contrast/Agitated Saline Contrast/Ag. Saline: Definity Amount: 2.00 ml Existing IV Access: Yes IV Access Condition: patent with no signs of infiltration Reason for Poor Study: patient body habitus Summary 1. The left ventricle appears to be normal in systolic function. 2. Technically difficult study with poorly visualized images. Left Ventricle The left ventricle appears to be normal in systolic function. Right Ventricle The right ventricle is not well visualized. Left Atria The left atrium is normal size. Right Atria The right atrium is not well visualized. Atrial Septum The atrial septum is not well visualized. Aortic Valve There is no stenosis by echocardiographic Doppler gradients. Pulmonic Valve The pulmonic valve is not visualized. Mitral Valve The mitral valve is grossly normal. There is no mitral regurgitation. Tricuspid Valve The tricuspid valve is grossly normal. There is no tricuspid regurgitation. Pericardium/Pleural Pericardium is normal in appearance with no evidence for significant pericardial effusion. Inferior Vena Cava Normal inferior vena cava with <50% collapse upon inspiration consistent with elevated right atrial pressure, 8 mmHg. Normal inferior vena cava with <50% collapse upon inspiration consistent with elevated right atrial pressure, 8 mmHg. Aorta The aortic root at the level of the sinus of Valsalva measures 3.6 cm in diameter. Left Ventricular Outflow Tract Name Value Normal LVOT 2D LVOT Diameter 1.99 cm LVOT Doppler LVOT Peak Gradient 4 mmHg LVOT Mean Gradient 2 mmHg LVOT VTI 22.15 cm LVOT VTI/AV VTI Ratio 0.76 LVOT Stroke Volume 68.53 ml LVOT CO 12.42 l/min LVOT CI 4.58 L/min/m2 Pulmonic Valve Name Value Normal PV Doppler PV Peak Gradient 4 mmHg Mitral Valve Name Value Normal MV Doppler MV Decel [place] 497.52 cm/s2 MV PHT 0 s MV Area (PHT) 4.14 cm2 4.00-5.00 MV Diastolic Function MV E Peak Velocity 91.11 cm/s MV A Peak Velocity 69.48 cm/s MV E/A 1.31 MV Decel Time 0 s MV Annular TDI MV E/e' (Septal) 15.41 <=8.00 MV E/e' (Lateral) 15.01 <=8.00 MV E/e' (Average) 15.21 Tricuspid Valve Name Value Normal Estimated PAP/RSVP RA Pressure 8 mmHg <=5 Aorta Name Value Normal Ascending Aorta Ao Root Diameter (MM) 3.54 cm Ao Root Diam Index (MM) 1.30 cm/m2 Aortic Valve Name Value Normal AV Doppler AV Peak Velocity 136.84 cm/s AV Peak Gradient 7 mmHg AV Mean Gradient 4 mmHg AV VTI 29.12 cm AV Area (Cont Eq VTI) 2.35 cm2 >=3.00 AV Area (Cont Eq Jayson) 2.20 cm2 AV Regurgitation 2D LVOT Area 3.09 cm2 Ventricles Name Value Normal LV Dimensions 2D/MM IVS Diastolic Thickness (2D) 1.48 cm 0.60-1.00 LVID Diastole (2D) 3.64 cm 3.80-5.20 LVIW Diastolic Thickness (2D) 1.41 cm 0.60-0.90 LVID Systole (2D) 2.72 cm 2.20-3.50 LVOT Diameter 1.99 cm LV Mass (2D Cubed) 192.26 g 67.00-162.00 LV Mass Index (2D Cubed) 0.01 g/cm2 0.00-0.01 Relative Wall Thickness (2D) 0.77 LV Fractional Shortening/Ejection Fraction 2D/MM LV Fractional Shortening (2D) 25 % 27-45 LV EF (2D Teicholz) 51 % 54-74 Atria Name Value Normal LA Dimensions LA Dimension (MM) 3.76 cm 2.70-3.80 LA Volume (4C A-L) 43.59 ml LA Volume (BP A-L) 56.13 ml Report Signatures
[2024-05-13 04:46] LABS: Add Urine Microscopic? YES; Appearance Urine Cloudy (Clear); Bacteria Urine 1+ /hpf; Bilirubin Urine Negative (Negative); Blood Urine 3+ (Negative); Color Urine Yellow (Yellow); Glucose Urine UA 3+ mg/dL (Negative); Ketones Urine Negative (Negative); Leukocyte Esterase Ur Negative LEU/UL (Negative); Nitrate Urine Negative (Negative); Non Pathogenic Casts 0-2; Protein Urine 4+ mg/dL (Negative); RBC Urine 51-100 /hpf (0-2); Specific Grav Ur 1.019 (1.001-1.035); Squamous Epithelial Cell Urine None Seen /hpf (Few); Urobilinogen Urine 0.2 mg/dL (<2.0); WBC Urine 0-5 /hpf (0-3); pH Urine 6.5 (5.0-9.0)
--- NOTE | 2024-05-13 04:55 | ADMGEN ---
This patient, Joann Tavares, was admitted to Medical Room 344-01. Patient/family oriented to hospital policies and general routines including ID bracelet, bed and alarms, visiting hours, pain management, procedures, bathroom and other care routines, personal items, smoking policy, room service/diet, and visiting hours. Information on how to activate the Rapid Response Team has been discussed. Patient/Family are encouraged to report perceived risks to care and to ask questions if they do not understand what they are told or what they should do.
[2024-05-13] MEDS: amLODIPine BESYLATE 10 MG TABLET PO (06:14)
[2024-05-13] MEDS: carvediloL 25 MG TABLET PO ×2 (06:14→20:03)
[2024-05-13 07:07] LABS: Anion Gap 7 mmol/L (4-12); Blood Urea Nitrogen 44 mg/dL (7-17); Calcium 9.5 mg/dL (8.4-10.2); Carbon Dioxide 23 mmol/L (22-30); Chloride 104 mmol/L (98-107); Estimated CRCL calculation 30 ml/min; Estimated Glomerular Filt Rate 17; Glucose 188 mg/dL (65-110); Potassium 4.2 mmol/L (3.4-5.0); Sodium 134 mmol/L (137-145)
[2024-05-13 07:12] LABS: Magnesium 2.1 mg/dL (1.6-2.3)
[2024-05-13 07:18] LABS: Troponin I < 0.012 ng/mL (0.000-0.034)
[2024-05-13] MEDS: ASPIRIN 81 MG CHEWABLE TABLET PO (08:14)
[2024-05-13] MEDS: EMPAGLIFLOZIN 25 MG TABLET PO (08:14)
[2024-05-13] MEDS: FERROUS SULFATE 325 MG TABLET DR BY MOUTH (08:14)
[2024-05-13] MEDS: FOLIC ACID 1 MG TABLET PO (08:14)
[2024-05-13] MEDS: ASCORBIC ACID 500 MG TABLET PO (08:14)
[2024-05-13] MEDS: ENOXAPARIN 40 MG/0.4 ML SYRINGE SUB-Q (08:15)
[2024-05-13] MEDS: INSULIN GLARGINE (*BKC) 100 UNITS/ML 35 UNITS SUB-Q ×2 (08:16→17:38)
[2024-05-13 08:25] LABS: Glucose Point of Care 182 mg/dl (65-105)
[2024-05-13 08:28] LABS: Hemoglobin A1C 6.9 % (<5.7)
--- NOTE | 2024-05-13 08:58 | P.PNIM_ITS ---
Progress Note: A&P Assessment and Plan (1) Volume overload: Code(s): E87.70 - Fluid overload, unspecified Status: Acute (2) Hypertension: Code(s): I10 - Essential (primary) hypertension Status: Acute (3) Chronic kidney disease, stage 4 (severe): Code(s): N18.4 - Chronic kidney disease, stage 4 (severe) Status: Acute (4) Chronic anemia: Code(s): D64.9 - Anemia, unspecified Status: Acute (5) Insulin dependent type 2 diabetes mellitus: Code(s): E11.9 - Type 2 diabetes mellitus without complications; Z79.4 - termination clerk (current) use of insulin Status: Acute (6) Obstructive sleep apnea on CPAP: Code(s): G47.33 - Obstructive sleep apnea (adult) (pediatric) Status: Acute (7) Morbid obesity: Code(s): E66.01 - Morbid (severe) obesity due to excess calories Status: Acute Plan The patient presented to the emergency department for evaluation of shortness of breath. Blood pressure on arrival was 220/120 but has improved with furosemide 40 mg IV. She was also quite anxious when she came in and that is likely a contributing factor. Continue amlodipine, carvedilol (was taking lisinopril before but it was stopped at some point) She is volume overloaded - diurese with close monitoring of volume status, renal function, and electrolytes. - Echocardiogram ordered - bilateral lower extremity venous Doppler ultrasounds to rule out DVT - She has chronic kidney disease stage 4 and reports that her kidney function and anemia today are stable - Continue basal insulin, add SS, Accu-Cheks, and hypoglycemic protocol. Check hemoglobin A1c. she previousl was taking ozempic but stopped as could not tolerate side effects. -CPAP will be provided for the patient to use while hospitalized. Time Spent With Patient Time with patient: 25 - 35 minutes Subjective Date/time seen: 05/13/24 08:58 Interval history: 49-year-old female with history of obstructive sleep apnea on CPAP, hypertension, insulin-dependent diabetes mellitus, chronic kidney disease, and morbid obesity admitted from home for evaluation of shortness of breath. She recently had Covid in march, then possibly RSV- got somewhat better, then 3-4 days ago, started having increased dyspnea and swelling to abd and lower legs. Additionally she reports orthopnea and states that last night when she went to bed she got severely short of breath when trying to lie down and she called 911. 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 When it gets especially bad she will wear compression stockings and take metolazone. She denies history of congestive heart failure (reports normal echocardiogram in July 2023) or venous thromboembolism. In the ED: Vital signs on arrival include a blood pressure of 220/120, pulse 95, respiratory rate 23, SpO2 100% on CPAP. Labs were significant for a WBC count of 10.1, hemoglobin 9.5, BUN 45, creatinine 3.08, glucose 205, proBNP 1520, troponin less than 0.012. EKG showed a sinus rhythm without concerning ST segment changes. She was given furosemide 40 mg IV and she is being admitted in this setting for further diuresis. Pt is seen and examined. She did not sleep well, so trying to nap currently. Wearing Cpap. Denies chest pain, sob. NO n,v,d. Review of Systems Review of Systems: 12 systems were reviewed and are negativ e except for as per HPI. Exam Narrative: General: Nontoxic-appearing female sitting up in bed in no acute distress. Weight: 151.2 kg. BMI: 57.2. HEENT: Normocephalic, atraumatic. PERRL, EOMI. Sclera anicteric. Oral mucosa appears moist do the CPAP. Neck: Supple. Exam limited due to neck circumference. No obvious JVD. Respiratory: Respirations are nonlabored and she is speaking in full sentences through the CPAP mask. Lung sounds are diminished at the bases, likely due to body habitus, and are otherwise clear Cardiovascular: Regular rate and rhythm with S1-S2. Gastrointestinal: Abdomen is morbidly obese and nontender with positive bowel sounds. Mild pitting of the lower abdomen. Skin: Warm and dry. Extremities: No cyanosis or clubbing. Legs are large with 2+ pitting edema from the feet to the lower abdomen. No palpable knots or cords. Negative Giuliana sign bilaterally. Neurological: Alert. Cranial nerves 2-12 are grossly intact. No gross focal deficits to casual conversation. Psychiatric: Pleasant and cooperative with normal mood and affect. Judgment and insight intact. Objective Data Vital Signs Vital Signs: Vital Signs - 24 hr 05/13/24 01:12 05/13/24 01:40 05/13/24 02:31 Temperature 98.0 F Pulse Rate 95 81 Respiratory Rate 23 H 17 Blood Pressure 220/120 H 186/82 H Pulse Oximetry 100 99 100 Oxygen Delivery Room Air CPAP 05/13/24 04:01 05/13/24 04:57 05/13/24 05:31 Temperature 97.6 F Pulse Rate 81 84 82 Respiratory Rate 14 20 Blood Pressure 183/68 H 191/76 H Pulse Oximetry 97 97 Oxygen Delivery 05/13/24 05:47 05/13/24 07:50 Temperature Pulse Rate Respiratory Rate Blood Pressure 162/72 H Pulse Oximetry Oxygen Delivery CPAP Intake/Output Intake/Output: Intake & Output 05/10/24 05/11/24 05/12/24 05/13/24 23:59 23:59 23:59 23:59 Output Total 800 Balance -800 Meds/Results Medications: Active Medications Generic Name Dose Route Start Last Admin Trade Name Freq PRN Reason Stop Dose Admin Acetaminophen 650 mg 05/13/24 03:36 Acetaminophen 325 Mg Tablet PO Q6H PRN Mild Pain (1-3) or Fever Amlodipine Besylate 10 mg 05/13/24 21:00 Amlodipine Besylate 10 Mg Tablet PO HS NICK Ascorbic Acid 500 mg 05/13/24 09:00 05/13/24 08:14 Ascorbic Acid 500 Mg Tablet PO 500 mg DAILY NICK Administration Aspirin 81 mg 05/13/24 09:00 05/13/24 08:14 Aspirin 81 Mg Chewable Tablet PO 81 mg DAILY NICK Administration Carvedilol 25 mg 05/13/24 09:00 05/13/24 06:14 Carvedilol 25 Mg Tablet PO 25 mg Q12HR NICK Administration Dextrose 12.5 gm 05/13/24 03:36 Dextrose 50% 25 Gm/50 Ml Syringe IV PUSH PRN PRN Hypoglycemia Protocol Empagliflozin 25 mg 05/13/24 09:00 05/13/24 08:14 Empagliflozin 25 Mg Tablet PO 25 mg DAILY NICK Administration Enoxaparin Sodium 40 mg 05/13/24 09:00 05/13/24 08:15 Enoxaparin 40 Mg/0.4 Ml Syringe SUB-Q 40 mg DAILY NICK Administration Ferrous Sulfate 325 mg 05/13/24 09:00 05/13/24 08:14 Ferrous Sulfate [address] BY MOUTH 325 mg DAILY NICK Administration Folic Acid 1 mg 05/13/24 09:00 05/13/24 08:14 Folic Acid 1 Mg Tablet PO 1 mg DAILY NICK Administration Furosemide 40 mg 05/13/24 09:00 05/13/24 08:15 Furosemide Inj 40 Mg/4 Ml Vial IV PUSH 40 mg Q12HR NICK Administration Glucagon 1 mg 05/13/24 03:36 Glucagon For Inj 1 Mg Vial IM PRN PRN Hypoglycemia Protocol Glucose 15 gm 05/13/24 03:36 Glucose Oral Gel 15 Gm Of Glucse In 37.5 Gm Tube PO PRN PRN Hypoglycemia Protocol Dextrose 1,000 mls @ 100 mls/hr 05/13/24 03:36 Dextrose 5% 1,000 Ml IVPB PRN PRN Hypoglycemia Protocol Insulin Aspart 4 - 8 units 05/13/24 08:00 Insulin Aspart (*Bkc) 100 Units/Ml SUB-Q TIDWM NICK Protocol Insulin Aspart 2 - 4 units 05/13/24 21:00 Insulin Aspart (*Bkc) 100 Units/Ml SUB-Q HS NICK Protocol Insulin Aspart 15 units 05/13/24 08:00 Insulin Aspart (*Bkc) 100 Units/Ml SUB-Q TIDWM NICK Insulin Glargine 35 units 05/13/24 09:00 05/13/24 08:16 Insulin Glargine (*Bkc) 100 Units/Ml SUB-Q 35 units BID NICK Administration Perflutren Lipid Microsphere 0 ml 05/13/24 03:36 Perflutren Lipid Microspheres 1.5 Ml Vial Diluted To 10 Ml Total Volume IV PUSH 05/16/24 03:36 ONCE PRN adequate visualization Protocol Radiology Results: ITS Impressions Chest X-Ray 05/13/24 05:27 Impression: Questionable minimal haziness right upper lobe. Correlate for subtle pneumonia. Labs Labs: Laboratory Results - last 24 hr 05/13/24 05/13/24 05/13/24 01:27 01:56 04:29 WBC 10.1 H RBC 3.04 L Hgb 9.5 L Hct 28.5 L MCV 93.8 MCH 31.3 MCHC 33.3 RDW 14.6 H Plt Count 275 MPV 9.9 Immature Gran % (Auto) 0.4 Neut % (Auto) 72.4 Lymph % (Auto) 11.9 L [place] % (Auto) 6.3 Eos % (Auto) 8.4 H Baso % (Auto) 0.6 Lymph # (Auto) 1.20 [place] # (Auto) 0.6 Eos # (Auto) 0.9 H Baso # (Auto) 0.1 Abs Immat Gran (auto) 0.04 H Absolute Neuts (auto) 7.3 H Absolute Nucleated RBC 0.000 Nucleated RBC % 0.0 PT 12.7 INR 0.9 APTT 24.1 Puncture Site Right radial ABG pH 7.393 ABG pCO2 39.2 ABG pO2 155.8 H ABG PO2/FiO2 Ratio 1.56 ABG HCO3 23.4 ABG O2 Saturation 99.0 ABG O2 Content 13.9 L ABG Base Excess -1.4 A-a Gradient 518.0 Oxyhemoglobin 98.1 Total Hemoglobin 9.8 L O2 Delivery Device Other device O2 Liters/Min Not Reportable FiO2 100 Sodium 136 L Potassium 4.8 Chloride 102 Carbon Dioxide 26 Anion Gap 8 BUN 45 H Creatinine 3.08 H Estim Creat Clear Calc 30 Estimated GFR 16 L Glucose 205 H POC Capillary Glucose Hemoglobin A1c Lactic Acid 0.6 L Calcium 10.1 Magnesium 2.3 Total Bilirubin 0.3 AST 23 ALT 21 Alkaline Phosphatase 57 Troponin I < 0.012 NT-Pro-B Natriuret Pep 1520 H Total Protein 7.0 Albumin 3.3 L Urine Color Yellow Urine Appearance Cloudy H Urine pH 6.5 Ur Specific [place] 1.019 Urine Protein 4+ H Urine Glucose (UA) 3+ H Urine Ketones Negative Ur Blood (Man) 3+ H Urine Nitrate Negative Urine Bilirubin Negative Urine Urobilinogen 0.2 Leukocyte Esterase Rfl Negative Urine RBC 51-100 H Urine WBC 0-5 Ur Squamous Epith Cells None seen Urine Bacteria 1+ H Urine Casts 0-2 Influenza A (RT-PCR) Negative Influenza B (RT-PCR) Negative RSV (RT-PCR) Negative SARS-CoV-2 RNA (RT-PCR) Negative 05/13/24 05/13/24 06:47 08:16 WBC RBC Hgb Hct MCV MCH MCHC RDW Plt Count MPV Immature Gran % (Auto) Neut % (Auto) Lymph % (Auto) [place] % (Auto) Eos % (Auto) Baso % (Auto) Lymph # (Auto) [place] # (Auto) Eos # (Auto) Baso # (Auto) Abs Immat Gran (auto) Absolute Neuts (auto) Absolute Nucleated RBC Nucleated RBC % PT INR APTT Puncture Site ABG pH ABG pCO2 ABG pO2 ABG PO2/FiO2 Ratio ABG HCO3 ABG O2 Saturation ABG O2 Content ABG Base Excess A-a Gradient Oxyhemoglobin Total Hemoglobin O2 Delivery Device O2 Liters/Min FiO2 Sodium 134 L Potassium 4.2 Chloride 104 Carbon Dioxide 23 Anion Gap 7 BUN 44 H Creatinine 3.00 H Estim Creat Clear Calc 30 Estimated GFR 17 L Glucose 188 H POC Capillary Glucose 182 H Hemoglobin A1c 6.9 H Lactic Acid Calcium 9.5 Magnesium 2.1 Total Bilirubin AST ALT Alkaline Phosphatase Troponin I < 0.012 NT-Pro-B Natriuret Pep Total Protein Albumin Urine Color Urine Appearance Urine pH Ur Specific [place] Urine Protein Urine Glucose (UA) Urine Ketones Ur Blood (Man) Urine Nitrate Urine Bilirubin Urine Urobilinogen Leukocyte Esterase Rfl Urine RBC Urine WBC Ur Squamous Epith Cells Urine Bacteria Urine Casts Influenza A (RT-PCR) Influenza B (RT-PCR) RSV (RT-PCR) SARS-CoV-2 RNA (RT-PCR) Quality VTE Prophylaxis VTE prophylaxis: pharmacologic ordered
[2024-05-13] MEDS: INSULIN ASPART (*BKC) 100 UNITS/ML 15 UNITS SUB-Q ×2 (09:28→18:39)
[2024-05-13] MEDS: PERFLUTREN LIPID MICROSPHERES 1.5 ML VIAL DILUTED TO 10 ML TOTAL VOLUME IV PUSH (11:30)
--- NOTE | 2024-05-13 12:18 | IVDEFINITY ---
Prior to administration of IV Definity the patient was educated on the risks and benefits of the imaging enhancing agent including potential adverse side effects. The patient verbalized understanding. Allergies were verified. No exclusion criteria were identified and at least one of the following inclusion criteria were met: 1) physician request, 2) patient technically difficult to image (per the [place] [employer]ocardi[employer] guidelines of two or more segments not discernable within the apical view), or 3) questionable left ventricular function. ?
[2024-05-13 12:48] LABS: Glucose Point of Care 165 mg/dl (65-105)
[2024-05-13] MEDS: ACETAMINOPHEN 325 MG TABLET 650 MG PO ×2 (12:53→18:40)
[2024-05-13 14:11] LABS: Glucose Point of Care 171 mg/dl (65-105)
[2024-05-13 17:36] LABS: Glucose Point of Care 131 mg/dl (65-105)
[2024-05-13 18:39] LABS: Glucose Point of Care 201 mg/dl (65-105)
[2024-05-13 20:51] LABS: Glucose Point of Care 216 mg/dl (65-105)
--- NOTE | 2024-05-13 22:18 | PC.NURSE ---
Patient refused 2100 Amlodipine stating they gave it to me already today . Patient educated on medication and importance of compliance. Patients blood sugar was 216 HS. Protocol calls for 2 units of NovoLog. Patient refused stating I already got insulin earlier . Patient educated on giving short acting insulin per protocal, but still refused at this time. Charge nurse aware.
[2024-05-14] VITALS (13 sets, daily range): BP systolic 148–166; BP diastolic 70–79; PULSE 68–86; RESP 18; TEMP 36.2–36.6; O2SAT 96–97
[2024-05-14 05:50] LABS: Hematocrit 25.5 % (37.0-47.0); Hemoglobin 8.4 g/dL (12.0-15.0); Mean Corpuscular HGB Conc 32.9 g/dl (32-36); Mean Corpuscular Volume 94.1 fl (80-100); Mean Platelet Volume 10.1 fl (7.4-10.4); Platelet Count Result 251 k/mm3 (150-375); Red Blood Count 2.71 M/mm3 (4.2-5.4); Red Cell Distribution Width 14.4 % (11.5-14.5); White Blood Count 6.8 K/mm3 (4.5-10.0)
[2024-05-14 06:07] LABS: Anion Gap 7 mmol/L (4-12); Blood Urea Nitrogen 48 mg/dL (7-17); Calcium 9.1 mg/dL (8.4-10.2); Carbon Dioxide 24 mmol/L (22-30); Chloride 102 mmol/L (98-107); Estimated CRCL calculation 31 ml/min; Estimated Glomerular Filt Rate 17; Glucose 105 mg/dL (65-110); Potassium 3.9 mmol/L (3.4-5.0); Sodium 133 mmol/L (137-145)
[2024-05-14] MEDS: carvediloL 25 MG TABLET PO ×2 (08:09→20:43)
[2024-05-14] MEDS: FUROSEMIDE INJ 40 MG/4 ML VIAL IV PUSH ×2 (08:11→20:42)
[2024-05-14] MEDS: FOLIC ACID 1 MG TABLET PO (08:11)
[2024-05-14] MEDS: EMPAGLIFLOZIN 25 MG TABLET PO (08:11)
[2024-05-14] MEDS: FERROUS SULFATE 325 MG TABLET DR BY MOUTH (08:11)
[2024-05-14] MEDS: ASPIRIN 81 MG CHEWABLE TABLET PO (08:11)
[2024-05-14] MEDS: ASCORBIC ACID 500 MG TABLET PO (08:11)
[2024-05-14 08:13] LABS: Glucose Point of Care 122 mg/dl (65-105)
[2024-05-14 12:18] LABS: Glucose Point of Care 133 mg/dl (65-105)
--- NOTE | 2024-05-14 12:56 | PM.IMPN ---
Progress Note: A&P Assessment and Plan (1) Volume overload: Code(s): E87.70 - Fluid overload, unspecified Status: Acute (2) Hypertension: Code(s): I10 - Essential (primary) hypertension Status: Acute (3) Chronic kidney disease, stage 4 (severe): Code(s): N18.4 - Chronic kidney disease, stage 4 (severe) Status: Acute (4) Chronic anemia: Code(s): D64.9 - Anemia, unspecified Status: Acute (5) Insulin dependent type 2 diabetes mellitus: Code(s): E11.9 - Type 2 diabetes mellitus without complications; Z79.4 - custodial (current) use of insulin Status: Acute (6) Obstructive sleep apnea on CPAP: Code(s): G47.33 - Obstructive sleep apnea (adult) (pediatric) Status: Acute (7) Morbid obesity: Code(s): E66.01 - Morbid (severe) obesity due to excess calories Status: Acute Plan This is a 49-year-old female with history of obstructive sleep apnea on CPAP, hypertension, insulin-dependent diabetes mellitus, chronic kidney disease, and morbid obesity admitted from home for evaluation of shortness of breath. She recently had Covid in march, then possibly RSV- got somewhat better, then 3-4 days ago, started having increased dyspnea and swelling to abd and lower legs. Additionally she reports orthopnea and states that last night when she went to bed she got severely short of breath when trying to lie down and she called 911. 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 When it gets especially bad she will wear compression stockings and take metolazone. She denies history of congestive heart failure (reports normal echocardiogram in July 2023) or venous thromboembolism. In the ED: Vital signs on arrival include a blood pressure of 220/120, pulse 95, respiratory rate 23, SpO2 100% on CPAP. Labs were significant for a WBC count of 10.1, hemoglobin 9.5, BUN 45, creatinine 3.08, glucose 205, proBNP 1520, troponin less than 0.012. EKG showed a sinus rhythm without concerning ST segment changes. Chest x-ray showed questionable minimal haziness right upper lobe correlate for subtle pneumonia. She was given furosemide 40 mg IV and she is being admitted in this setting for further management. Shortness of breath no hypoxia chest x-ray with questionable minimal haziness right upper lobe correlate for subtle pneumonia. Possible CHF exacerbation with lower extremity edema. BNP elevated at 1520. Will get CT chest to further evaluate. Also will do lung scan. Has underlying obstructive sleep apnea. Echocardiogram 05/13/2024 showed normal systolic function right ventricular not visualized well. Type 2 diabetes on insulin adjust dose as needed CKD stage 4 follows with head of measurement & insights. Continue to monitor creatinine TARIQ on CPAP Anemia check iron level she does have vaginal bleed. Will get pelvic ultrasound she will need Gynecology outpatient follow-up for further evaluation. Lower extremity edema on diuresis. May switch the amlodipine due to lower extremity edema also on Coreg. Used to be on torsemide and metolazone at home. Sees off RIN inhibitor due to renal failure most likely. DVT prophylaxis Lovenox Subjective Date/time seen: 05/14/24 12:56 Interval history: Breathing has improved. Still have swelling in the legs. Cough present. No chest pain. Review of Systems Review of Systems: All systems reviewed & are unremarkable except as noted in HPI and below Exam Narrative: General: Nontoxic-appearing female sitting up in bed in no acute distress. HEENT: Normocephalic, atraumatic. PERRL, EOMI. Sclera anicteric. Neck: Supple. Exam limited due to neck circumference. No obvious JVD. Respiratory: Respirations are nonlabored speaking in full sentences. Lung sounds are diminished at the bases, likely due to body habitus, and are otherwise clear Cardiovascular: Regular rate and rhythm with S1-S2. Gastrointestinal: Abdomen is morbidly obese and nontender with positive bowel sounds. Mild pitting of the lower abdomen. Skin: Warm and dry. Extremities: No cyanosis or clubbing. Legs are large with 2+ pitting edema from the feet to the lower abdomen. No palpable knots or cords. Negative Giuliana sign bilaterally. Neurological: Alert. Cranial nerves 2-12 are grossly intact. No gross focal deficits to casual conversation. Psychiatric: Pleasant and cooperative with normal mood and affect. Judgment and insight intact. Objective Data Vital Signs Vital Signs: Vital Signs - 24 hr 05/13/24 14:43 05/13/24 16:04 05/13/24 19:56 Temperature 97.3 F L 98.2 F Pulse Rate 76 77 77 Respiratory Rate 18 20 Blood Pressure 162/68 H 170/72 H Pulse Oximetry 96 100 Oxygen Delivery Fraction of Inspired Oxygen 05/13/24 20:00 05/13/24 20:03 05/13/24 22:48 Temperature Pulse Rate 80 80 71 Respiratory Rate Blood Pressure Pulse Oximetry 96 Oxygen Delivery CPAP Fraction of Inspired Oxygen 05/13/24 23:02 05/14/24 00:00 05/14/24 02:12 Temperature Pulse Rate 73 70 Respiratory Rate Blood Pressure Pulse Oximetry 96 96 Oxygen Delivery CPAP CPAP Fraction of Inspired Oxygen 21 05/14/24 04:00 05/14/24 04:41 05/14/24 08:09 Temperature 97.9 F Pulse Rate 68 71 82 Respiratory Rate 18 Blood Pressure 150/70 H Pulse Oximetry 96 Oxygen Delivery Fraction of Inspired Oxygen 05/14/24 08:10 Temperature Pulse Rate Respiratory Rate Blood Pressure Pulse Oximetry 97 Oxygen Delivery Room Air Fraction of Inspired Oxygen Intake/Output Intake/Output: Intake & Output 05/11/24 05/12/24 05/13/24 05/14/24 23:59 23:59 23:59 23:59 Intake Total 2210 1310 Output Total 1999 1400 Balance 210 -90 Meds/Results Medications: Active Medications Generic Name Dose Route Start Last Admin Trade Name Freq PRN Reason Stop Dose Admin Acetaminophen 650 mg 05/13/24 03:36 05/13/24 18:40 Acetaminophen 325 Mg Tablet PO 650 mg Q6H PRN Administration Mild Pain (1-3) or Fever Amlodipine Besylate 10 mg 05/13/24 21:00 05/13/24 20:02 Amlodipine Besylate 10 Mg Tablet PO Not Given HS NICK Ascorbic Acid 500 mg 05/13/24 09:00 05/14/24 08:11 Ascorbic Acid 500 Mg Tablet PO 500 mg DAILY NICK Administration Aspirin 81 mg 05/13/24 09:00 05/14/24 08:11 Aspirin 81 Mg Chewable Tablet PO 81 mg DAILY NICK Administration Carvedilol 25 mg 05/13/24 09:00 05/14/24 08:09 Carvedilol 25 Mg Tablet PO 25 mg Q12HR NICK Administration Dextrose 12.5 gm 05/13/24 03:36 Dextrose 50% 25 Gm/50 Ml Syringe IV PUSH PRN PRN Hypoglycemia Protocol Empagliflozin 25 mg 05/13/24 09:00 05/14/24 08:11 Empagliflozin 25 Mg Tablet PO 25 mg DAILY NICK Administration Enoxaparin Sodium 40 mg 05/13/24 09:00 05/14/24 08:11 Enoxaparin 40 Mg/0.4 Ml Syringe SUB-Q Not Given DAILY NICK Ferrous Sulfate 325 mg 05/13/24 09:00 05/14/24 08:11 Ferrous Sulfate [address] BY MOUTH 325 mg DAILY NICK Administration Folic Acid 1 mg 05/13/24 09:00 05/14/24 08:11 Folic Acid 1 Mg Tablet PO 1 mg DAILY NICK Administration Furosemide 40 mg 05/13/24 09:00 05/14/24 08:11 Furosemide Inj 40 Mg/4 Ml Vial IV PUSH 40 mg Q12HR NICK Administration Glucagon 1 mg 05/13/24 03:36 Glucagon For Inj 1 Mg Vial IM PRN PRN Hypoglycemia Protocol Glucose 15 gm 05/13/24 03:36 Glucose Oral Gel 15 Gm Of Glucse In 37.5 Gm Tube PO PRN PRN Hypoglycemia Protocol Dextrose 1,000 mls @ 100 mls/hr 05/13/24 03:36 Dextrose 5% 1,000 Ml IVPB PRN PRN Hypoglycemia Protocol Insulin Aspart 4 - 8 units 05/13/24 08:00 05/14/24 12:35 Insulin Aspart (*Bkc) 100 Units/Ml SUB-Q Not Given TIDWM [facility] Protocol Insulin Aspart 2 - 4 units 05/13/24 21:00 05/13/24 20:06 Insulin Aspart (*Bkc) 100 Units/Ml SUB-Q Not Given HS [facility] Protocol Insulin Aspart 15 units 05/13/24 08:00 05/14/24 10:19 Insulin Aspart (*Bkc) 100 Units/Ml SUB-Q Not Given TIDWM [facility] Insulin Glargine 35 units 05/14/24 21:00 Insulin Glargine (*Bkc) 100 Units/Ml SUB-Q Q12HR [facility] Radiology Results: ITS Impressions Chest X-Ray 05/13/24 05:27 Impression: Questionable minimal haziness right upper lobe. Correlate for subtle pneumonia. Venous Doppler Study 05/13/24 09:20 IMPRESSION: 1. No deep venous thrombosis. Labs Labs: Laboratory Results - last 24 hr 05/13/24 05/13/24 05/13/24 14:08 17:33 18:35 WBC RBC Hgb Hct MCV MCH MCHC RDW Plt Count MPV Sodium Potassium Chloride Carbon Dioxide Anion Gap BUN Creatinine Estim Creat Clear Calc Estimated GFR Glucose POC Capillary Glucose 171 H 131 H 201 H Calcium 05/13/24 05/14/24 05/14/24 20:03 05:32 08:08 WBC 6.8 RBC 2.71 L Hgb 8.4 L Hct 25.5 L MCV 94.1 MCH 31.0 MCHC 32.9 RDW 14.4 Plt Count 251 MPV 10.1 Sodium 133 L Potassium 3.9 Chloride 102 Carbon Dioxide 24 Anion Gap 7 BUN 48 H Creatinine 2.93 H Estim Creat Clear Calc 31 Estimated GFR 17 L Glucose 105 POC Capillary Glucose 216 H 122 H Calcium 9.1 05/14/24 12:15 WBC RBC Hgb Hct MCV MCH MCHC RDW Plt Count MPV Sodium Potassium Chloride Carbon Dioxide Anion Gap BUN Creatinine Estim Creat Clear Calc Estimated GFR Glucose POC Capillary Glucose 133 H Calcium
[2024-05-14 13:13] LABS: Immature Reticulocyte Fraction 18.8 % (3.0-15.9); Reticulocyte Percent 5.88 % (0.7-4.3); Reticulocytes Absolute 0.16 10^6/uL (0.02-0.10)
[2024-05-14 13:25] LABS: Iron 33 ug/dL (37-170)
[2024-05-14 13:35] LABS: Percent Iron Saturation 9 % (20-50)
[2024-05-14 14:33] LABS: Folic Acid 14.3 ng/mL (2.76->20)
[2024-05-14 15:24] LABS: IFOB Positive Control Positive; Immunochemical Fecal Occult Bl Positive (N)
[2024-05-14 16:40] LABS: Glucose Point of Care 177 mg/dl (65-105)
[2024-05-14] MEDS: PANTOPRAZOLE SODIUM IV 40 MG VIAL IV PUSH (17:12)
[2024-05-14] MEDS: AZITHROMYCIN 500 MG/NS 250 ML 500 MG/250 ML BAG 250 MG IVPB (17:52)
[2024-05-14 18:53] LABS: Glucose Point of Care 227 mg/dl (65-105)
[2024-05-14] MEDS: amLODIPine BESYLATE 10 MG TABLET PO (20:42)
[2024-05-14] MEDS: INSULIN GLARGINE (*BKC) 100 UNITS/ML 30 UNITS SUB-Q (20:45)
--- NOTE | 2024-05-14 21:05 | PC.NURSE ---
Patient refused sliding scale insulin stating she would be NPO at midnight and concerned about hypoglycemia
[2024-05-15] VITALS (14 sets, daily range): BP systolic 132–172; BP diastolic 66–78; PULSE 71–79; RESP 16–20; TEMP 36.4–36.6; O2SAT 96–100
[2024-05-15 05:41] LABS: Hematocrit 25.4 % (37.0-47.0); Hemoglobin 8.4 g/dL (12.0-15.0); Mean Corpuscular HGB Conc 33.1 g/dl (32-36); Mean Corpuscular Hemoglobin 30.9 pg (26-34); Mean Corpuscular Volume 93.4 fl (80-100); Mean Platelet Volume 10.1 fl (7.4-10.4); Platelet Count Result 259 k/mm3 (150-375); Red Blood Count 2.72 M/mm3 (4.2-5.4); Red Cell Distribution Width 14.3 % (11.5-14.5)
[2024-05-15 05:55] LABS: Anion Gap 9 mmol/L (4-12); Blood Urea Nitrogen 51 mg/dL (7-17); Calcium 8.8 mg/dL (8.4-10.2); Carbon Dioxide 22 mmol/L (22-30); Chloride 101 mmol/L (98-107); Estimated CRCL calculation 27 ml/min; Estimated Glomerular Filt Rate 14; Glucose 129 mg/dL (65-110); Magnesium 2.2 mg/dL (1.6-2.3); Potassium 3.9 mmol/L (3.4-5.0); Sodium 132 mmol/L (137-145)
[2024-05-15] MEDS: ASCORBIC ACID 500 MG TABLET PO (08:50)
[2024-05-15] MEDS: carvediloL 25 MG TABLET PO ×2 (08:50→20:34)
[2024-05-15] MEDS: PANTOPRAZOLE SODIUM IV 40 MG VIAL IV PUSH ×2 (08:50→20:35)
[2024-05-15] MEDS: FUROSEMIDE INJ 40 MG/4 ML VIAL IV PUSH (08:50)
[2024-05-15] MEDS: FOLIC ACID 1 MG TABLET PO (08:50)
[2024-05-15] MEDS: FERROUS SULFATE 325 MG TABLET DR BY MOUTH (08:50)
[2024-05-15] MEDS: EMPAGLIFLOZIN 25 MG TABLET PO (08:50)
[2024-05-15 08:59] LABS: Glucose Point of Care 131 mg/dl (65-105)
[2024-05-15] MEDS: INSULIN ASPART (*BKC) 100 UNITS/ML 15 UNITS SUB-Q (09:09)
[2024-05-15 11:39] LABS: Glucose Point of Care 244 mg/dl (65-105)
--- NOTE | 2024-05-15 12:14 | P.CONGI_ITS ---
Assessment and Plan Assessment and plan (1) Acute on chronic anemia: Code(s): D64.9 - Anemia, unspecified Status: Acute Assessment and Plan: certainly she has chronic anemia with some component of iron deficiency could be partially from heavy periods, renal failure and required blood transfusion last year, she also used iron in the past but never had scopes plan is to set up egd/colonoscopy in few more weeks after she is completely recovered from pneumonia/edema (2) Chronic kidney disease: Code(s): N18.9 - Chronic kidney disease, unspecified Status: Acute Assessment and Plan: stable (3) Rectal bleeding: Code(s): K62.5 - Hemorrhage of anus and rectum Status: Acute Assessment and Plan: colonoscopy as outpatient (4) Heavy periods: Code(s): N92.0 - Excessive and frequent menstruation with regular cycle Status: Acute Assessment and Plan: she says that is planning to see industrial maintenance repairer helper soon (5) Morbid obesity: Code(s): E66.01 - Morbid (severe) obesity due to excess calories Status: Acute (6) Obstructive sleep apnea on CPAP: Code(s): G47.33 - Obstructive sleep apnea (adult) (pediatric) Status: Acute (7) Volume overload: Code(s): E87.70 - Fluid overload, unspecified Status: Acute (8) Insulin dependent type 2 diabetes mellitus: Code(s): E11.9 - Type 2 diabetes mellitus without complications; Z79.4 - group home (current) use of insulin Status: Acute (9) Pneumonia: Code(s): J18.9 - Pneumonia, unspecified organism Status: Acute Assessment and Plan: on abx GI Consult Note Consult date/time: 05/15/24 12:14 Reason for consult: anemia, rectal bleeding HPI: Joann Tavares is a 49 year old female with history of obstructive sleep apnea on CPAP, hypertension, insulin-dependent diabetes mellitus, chronic kidney disease stage 3, and morbid obesity BMI 57 and chronic anemia for few years- actually she received blood transfusion last year- history of heavy periods (she has not seen industrial maintenance repairer helper yet). She came to the emergency department via EMS from home for evaluation of shortness of breath and leg edema. She had progressive dyspnea on exertion and noted more leg edema. Earlier this year diagnosed with COVID and then RSV. ER evaluation noted blood pressure of 220/120. Labs were significant for a WBC count of 10.1, hemoglobin 9.5, BUN 45, creatinine 3.08, glucose 205, proBNP 1520, troponin less than 0.012. Never had scopes, noted intermittent rectal bleeding. Better after cpap and iv diuretics. Review of Systems 2 Constitutional: Constitutional: Denies chills Eyes: Eyes: Denies blurry vision ENT: Reports Normal hearing present Cardiovascular: Cardiovascular: Denies chest pain Respiratory: Respiratory: Reports dyspnea on exertion Gastrointestinal: Gastrointestinal: Denies bloating Genitourinary: Genitourinary: Reports menorrhagia Musculoskeletal: Musculoskeletal: Denies neck pain Integumentary/Breasts: Skin/Breast: Denies rash Neurologic: Denies Abnormal speech present Psychiatric: Psychiatric: Denies behavioral changes [facility] Past Medical History Medical History (Updated 05/15/24 @ 12:20 by Hernan Mcguire MD) Pneumonia Heavy periods Acute on chronic anemia Rectal bleeding Morbid obesity Obstructive sleep apnea on CPAP Insulin dependent type 2 diabetes mellitus Chronic anemia Chronic kidney disease, stage 4 (severe) Hypertension Vestibular migraine Surgical History Surgical History (Updated 05/13/24 @ 03:41 by Isabelle Cee PA-C) History of section Family History Family History (Updated 05/13/24 @ 05:27 by Martina Juarez RN) Father Diabetes mellitus Mother Hypertension COPD (chronic obstructive pulmonary disease) Social History Social History (Updated 05/13/24 @ 03:42 by Isabelle Cee PA-C) Social History: Surrogate medical decision maker: Marco A Tavares, spouse. Code status: Full code. Smoking status: Former smoker Tobacco type: cigarettes Alcohol intake: never Substance use: never Substance use type: does not use Do You Feel Safe in your Home?: Yes Lack of Transportation: No Lack of Food: Never True Current Housing: I Have Housing Concerned About Future Housing: No Difficulty Paying Gas/Electric Bills: No Difficulty Paying for Meds: No Currently Unemployed: No Education: Associate Degree Difficulty w/ Childcare or Family Care: No Additional living arrangements comments: Lives with spouse in [place]. They have 3 grown children. 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 Spiritual care concerns: No Meds Home Medications and Allergies Home Medications ?Medication ?Instructions ?Recorded ?Confirmed ?Type amlodipine 10 mg tablet 10 mg PO HS 05/13/24 05/13/24 History ascorbic acid (vitamin C) 500 mg 500 mg PO DAILY 05/13/24 05/13/24 History chewable tablet (Fruit C-500) aspirin 81 mg chewable tablet 1 tablet PO DAILY 05/13/24 05/13/24 History carvedilol 25 mg tablet 25 mg PO Q12H 05/13/24 05/13/24 History empagliflozin 25 mg tablet 25 mg PO DAILY 05/13/24 05/13/24 History (Jardiance) ergocalciferol (vitamin D2) 1,250 1,250 mcg PO WEEKLY 05/13/24 05/13/24 History mcg (50,000 unit) capsule (Vitamin D2) ferrous sulfate 325 mg (65 mg 325 mg PO DAILY 05/13/24 05/13/24 History iron) tablet folic acid 1 mg tablet 1 mg PO DAILY 05/13/24 05/13/24 History insulin glargine-yfgn 100 unit/mL 35 unit subcut BID 05/13/24 05/13/24 History subcutaneous solution insulin lispro 100 unit/mL 15 unit subcut AC 05/13/24 05/13/24 History subcutaneous pen metolazone 2.5 mg tablet 2.5 mg PO DAILY PRN edema 05/13/24 05/13/24 History torsemide 10 mg tablet 10 mg PO DAILY 05/13/24 05/13/24 History torsemide 20 mg tablet 20 mg PO DAILY 05/13/24 05/13/24 History Allergies Allergy/AdvReac Type Severity Reaction Status Date / Time cephalexin Allergy Mild RASH Verified 05/13/24 01:27 ofloxacin Allergy Mild RASH Verified 05/13/24 01:27 ciprofloxacin Allergy Unknown Hives,Rash Verified 05/15/24 11:06 meperidine Allergy Unknown Hives Verified 05/13/24 01:27 morphine Allergy Unknown Hives Verified 05/13/24 01:27 albuterol AdvReac Migraine Verified 05/13/24 01:27 Vital Signs Vital Signs - 24 hr 05/14/24 15:41 05/14/24 16:04 05/14/24 20:00 Temperature 97.9 F Pulse Rate 86 76 83 Respiratory Rate 18 Blood Pressure 148/70 H Pulse Oximetry 96 Oxygen Delivery 05/14/24 20:43 05/14/24 21:26 05/15/24 00:00 Temperature 97.2 F L Pulse Rate 82 80 79 Respiratory Rate 18 Blood Pressure 166/79 H Pulse Oximetry 97 Oxygen Delivery 05/15/24 00:04 05/15/24 02:51 05/15/24 04:00 Temperature Pulse Rate 73 Respiratory Rate Blood Pressure Pulse Oximetry 99 97 Oxygen Delivery CPAP CPAP 05/15/24 06:00 05/15/24 08:04 05/15/24 08:50 Temperature 97.9 F Pulse Rate 71 74 71 Respiratory Rate 20 Blood Pressure 132/66 Pulse Oximetry 100 Oxygen Delivery 05/15/24 08:50 Temperature Pulse Rate Respiratory Rate Blood Pressure Pulse Oximetry 97 Oxygen Delivery Room Air Exam 2 Const: General: comfortable and no acute distress Nutritional Appearance: o bese Orientation/consciousness: patient oriented x3 Other: using cpap HENMT: Face/Nose/Sinus: Normal nares present Eyes: General: appearance normal, both eyes and all related structures Neck: Neck: supple Resp: Auscultation: clear to auscultation bilaterally Cardio: Rate: regular rate Rhythm: regular rhythm GI: Inspection: non-distended GI Palp: Yes Soft to palpation and No Tenderness to palpation present (GI) Auscultation: normal bowel sounds Skin: General skin exam: normal color Neuro: Speech: normal speech Extrem: General: pedal edema Psych: Mental Status: mental status grossly normal Results Labs 05/15/24 05:31 05/15/24 05:31 Labs: Short CBC 05/15/24 Range/Units 05:31 WBC 7.0 (4.5-10.0) K/mm3 Hgb 8.4 L (12.0-15.0) g/dL Hct 25.4 L (37.0-47.0) % Plt Count 259 (150-375) k/mm3 BMP 05/15/24 05:31 Sodium 132 L Potassium 3.9 Chloride 101 Carbon Dioxide 22 BUN 51 H Creatinine 3.36 H Glucose 129 H Calcium 8.8
[2024-05-15 12:40] LABS: Glucose Point of Care 104 mg/dl (65-105)
--- NOTE | 2024-05-15 13:05 | P.PNIM_ITS ---
Progress Note: A&P Assessment and Plan (1) Volume overload: Code(s): E87.70 - Fluid overload, unspecified Status: Acute (2) Hypertension: Code(s): I10 - Essential (primary) hypertension Status: Acute (3) Chronic kidney disease, stage 4 (severe): Code(s): N18.4 - Chronic kidney disease, stage 4 (severe) Status: Acute (4) Chronic anemia: Code(s): D64.9 - Anemia, unspecified Status: Acute (5) Insulin dependent type 2 diabetes mellitus: Code(s): E11.9 - Type 2 diabetes mellitus without complications; Z79.4 - USP (current) use of insulin Status: Acute (6) Obstructive sleep apnea on CPAP: Code(s): G47.33 - Obstructive sleep apnea (adult) (pediatric) Status: Acute (7) Morbid obesity: Code(s): E66.01 - Morbid (severe) obesity due to excess calories Status: Acute Plan This is a 49-year-old female with history of obstructive sleep apnea on CPAP, hypertension, insulin-dependent diabetes mellitus, chronic kidney disease, and morbid obesity admitted from home for evaluation of shortness of breath. She recently had Covid in march, then possibly RSV- got somewhat better, then 3-4 days ago, started having increased dyspnea and swelling to abd and lower legs. Additionally she reports orthopnea and states that last night when she went to bed she got severely short of breath when trying to lie down and she called 911. 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 When it gets especially bad she will wear compression stockings and take metolazone. She denies history of congestive heart failure (reports normal echocardiogram in July 2023) or venous thromboembolism. In the ED: Vital signs on arrival include a blood pressure of 220/120, pulse 95, respiratory rate 23, SpO2 100% on CPAP. Labs were significant for a WBC count of 10.1, hemoglobin 9.5, BUN 45, creatinine 3.08, glucose 205, proBNP 1520, troponin less than 0.012. EKG showed a sinus rhythm without concerning ST segment changes. Chest x-ray showed questionable minimal haziness right upper lobe correlate for subtle pneumonia. She was given furosemide 40 mg IV and she is being admitted in this setting for further management. Shortness of breath no hypoxia chest x-ray with questionable minimal haziness right upper lobe correlate for subtle pneumonia. Possible CHF exacerbation with lower extremity edema. BNP elevated at 1520. CT chest showing multifocal pneumonia. Started on ceftriaxone and azithromycin. Lung scan came back normal. Continue diuresis however creatinine bumped up today and will lower down the dose to once daily. Has underlying obstructive sleep apnea. Echocardiogram 05/13/2024 showed normal systolic function right ventricular not visualized well. Type 2 diabetes on insulin adjust dose as needed CKD stage 4 follows with home service technician. Continue to monitor creatinine TARIQ on CPAP Anemia iron panel suggestive of iron deficiency she does have vaginal bleed. Pelvic ultrasound with endometrial thickening noted. Need gynecology evaluation. Stool occult blood also came back positive. Her baseline hemoglobin between 7-8 in the past. Refuses to get iron infusion. GI consultation will likely need evaluation with EGD colonoscopy which she never had before. Lower extremity edema on diuresis. May switch the amlodipine due to lower extremity edema also on Coreg. Used to be on torsemide and metolazone at home. Sees off RIN inhibitor due to renal failure most likely. DVT prophylaxis Lovenox currently on hold due to anemia Subjective Date/time seen: 05/15/24 13:05 Interval history: Review test results. Feels okay. Still has some shortness of breath with exertion. Legs feel a little puffy today. Labs reviewed. Review of Systems Review of Systems: All systems reviewed & are unremarkable except as noted in HPI and below Exam Narrative: General: Nontoxic-appearing female sitting up in bed in no acute distress. HEENT: Normocephalic, atraumatic. PERRL, EOMI. Sclera anicteric. Neck: Supple. Exam limited due to neck circumference. No obvious JVD. Respiratory: Respirations are nonlabored speaking in full sentences. Lung sounds are diminished at the bases, likely due to body habitus, and are otherwise clear Cardiovascular: Regular rate and rhythm with S1-S2. Gastrointestinal: Abdomen is morbidly obese and nontender with positive bowel sounds. Mild pitting of the lower abdomen. Skin: Warm and dry. Extremities: No cyanosis or clubbing. Legs are large with 2+ pitting edema from the feet to the lower abdomen. No palpable knots or cords. Negative Giuliana sign bilaterally. Neurological: Alert. Cranial nerves 2-12 are grossly intact. No gross focal deficits to casual conversation. Psychiatric: Pleasant and cooperative with normal mood and affect. Judgment and insight intact. Objective Data Vital Signs Vital Signs: Vital Signs - 24 hr 05/14/24 15:41 05/14/24 16:04 05/14/24 20:00 Temperature 97.9 F Pulse Rate 86 76 83 Respiratory Rate 18 Blood Pressure 148/70 H Pulse Oximetry 96 Oxygen Delivery 05/14/24 20:43 05/14/24 21:26 05/15/24 00:00 Temperature 97.2 F L Pulse Rate 82 80 79 Respiratory Rate 18 Blood Pressure 166/79 H Pulse Oximetry 97 Oxygen Delivery 05/15/24 00:04 05/15/24 02:51 05/15/24 04:00 Temperature Pulse Rate 73 Respiratory Rate Blood Pressure Pulse Oximetry 99 97 Oxygen Delivery CPAP CPAP 05/15/24 06:00 05/15/24 08:04 05/15/24 08:50 Temperature 97.9 F Pulse Rate 71 74 71 Respiratory Rate 20 Blood Pressure 132/66 Pulse Oximetry 100 Oxygen Delivery 05/15/24 08:50 Temperature Pulse Rate Respiratory Rate Blood Pressure Pulse Oximetry 97 Oxygen Delivery Room Air Intake/Output Intake/Output: Intake & Output 05/12/24 05/13/24 05/14/24 05/15/24 23:59 23:59 23:59 23:59 Intake Total 2210 2650 240 Output Total 1999 2565 500 Balance 210 85 -260 Meds/Results Medications: Active Medications Generic Name Dose Route Start Last Admin Trade Name Freq PRN Reason Stop Dose Admin Acetaminophen 650 mg 05/13/24 03:36 05/13/24 18:40 Acetaminophen 325 Mg Tablet PO 650 mg Q6H PRN Administration Mild Pain (1-3) or Fever Amlodipine Besylate 10 mg 05/13/24 21:00 05/14/24 20:42 Amlodipine Besylate 10 Mg Tablet PO 10 mg HS NICK Administration Ascorbic Acid 500 mg 05/13/24 09:00 05/15/24 08:50 Ascorbic Acid 500 Mg Tablet PO 500 mg DAILY NICK Administration Aspirin 81 mg 05/13/24 09:00 05/15/24 12:53 Aspirin 81 Mg Chewable Tablet PO Not Given DAILY NICK Carvedilol 25 mg 05/13/24 09:00 05/15/24 08:50 Carvedilol 25 Mg Tablet PO 25 mg Q12HR NICK Administration Dextrose 12.5 gm 05/13/24 03:36 Dextrose 50% 25 Gm/50 Ml Syringe IV PUSH PRN PRN Hypoglycemia Protocol Empagliflozin 25 mg 05/13/24 09:00 05/15/24 08:50 Empagliflozin 25 Mg Tablet PO 25 mg DAILY NICK Administration Enoxaparin Sodium 40 mg 05/13/24 09:00 05/14/24 08:11 Enoxaparin 40 Mg/0.4 Ml Syringe SUB-Q Not Given DAILY [facility] Ferrous Sulfate 325 mg 05/13/24 09:00 05/15/24 08:50 Ferrous Sulfate [address] BY MOUTH 325 mg DAILY NICK Administration Folic Acid 1 mg 05/13/24 09:00 05/15/24 08:50 Folic Acid 1 Mg Tablet PO 1 mg DAILY NICK Administration Furosemide 40 mg 05/13/24 09:00 05/15/24 08:50 Furosemide Inj 40 Mg/4 Ml Vial IV PUSH 40 mg Q12HR NICK Administration Glucagon 1 mg 05/13/24 03:36 Glucagon For Inj 1 Mg Vial IM PRN PRN Hypoglycemia Protocol Glucose 15 gm 05/13/24 03:36 Glucose Oral Gel 15 Gm Of Glucse In 37.5 Gm Tube PO PRN PRN Hypoglycemia Protocol Dextrose 1,000 mls @ 100 mls/hr 05/13/24 03:36 Dextrose 5% 1,000 Ml IVPB PRN PRN Hypoglycemia Protocol Ceftriaxone Sodium 1 gm in 50 mls @ 100 mls/hr 05/14/24 16:00 05/14/24 17:12 Rocephin 1 Gm/Ns 50 Ml IVPB 100 mls/hr Q24H NICK Administration Azithromycin 500 mg in 250 mls @ 250 mls/hr 05/14/24 16:00 05/14/24 17:52 Zithromax IVPB 250 mls/hr Q24H NICK Administration Insulin Aspart 4 - 8 units 05/13/24 08:00 05/15/24 12:53 Insulin Aspart (*Bkc) 100 Units/Ml SUB-Q Not Given TIDWM [facility] Protocol Insulin Aspart 2 - 4 units 05/13/24 21:00 05/14/24 20:43 Insulin Aspart (*Bkc) 100 Units/Ml SUB-Q Not Given HS [facility] Protocol Insulin Aspart 15 units 05/13/24 08:00 05/15/24 12:54 Insulin Aspart (*Bkc) 100 Units/Ml SUB-Q Not Given TIDWM NICK Insulin Glargine 30 units 05/14/24 21:00 05/14/24 20:45 Insulin Glargine (*Bkc) 100 Units/Ml SUB-Q 30 units HS NICK Administration Pantoprazole Sodium 40 mg 05/14/24 16:05 05/15/24 08:50 Pantoprazole Sodium Iv 40 Mg Vial IV PUSH 40 mg Q12HR NCIK Administration Radiology Results: ITS Impressions Chest X-Ray 05/13/24 05:27 Impression: Questionable minimal haziness right upper lobe. Correlate for subtle pneumonia. Venous Doppler Study 05/13/24 09:20 IMPRESSION: 1. No deep venous thrombosis. Pulmonary Perfusion Imaging 05/14/24 14:44 IMPRESSION: 1. Normal perfusion. Chest CT 05/14/24 14:48 IMPRESSION: 1. Patchy groundglass and airspace opacities in the upper lobes, consistent with pneumonia. Upper Quadrant Ultrasound 05/15/24 10:53 IMPRESSION: 1. Normal right upper quadrant ultrasound. Pelvis Ultrasound 05/15/24 10:54 IMPRESSION: 1. Thickened endometrial complex, which may be endometrial hyperplasia or polyp. Labs Labs: Laboratory Results - last 24 hr 05/14/24 05/14/24 05/14/24 05:29 05:32 14:59 WBC RBC Hgb Hct MCV MCH MCHC RDW Plt Count MPV Absolute Retic 0.16 H Percent Retic 5.88 H Immature Retic Fraction 18.8 H Retic Hgb Content 33.0 Sodium Potassium Chloride Carbon Dioxide Anion Gap BUN Creatinine Estim Creat Clear Calc Estimated GFR Glucose POC Capillary Glucose Calcium Magnesium Iron 33 L TIBC 356 % Saturation 9 L Ferritin 24.30 Vitamin B12 387.0 Folate 14.3 Stl Occult Blood (IFOB) Positive H 05/14/24 05/14/24 05/14/24 16:34 18:49 20:36 WBC RBC Hgb Hct MCV MCH MCHC RDW Plt Count MPV Absolute Retic Percent Retic Immature Retic Fraction Retic Hgb Content Sodium Potassium Chloride Carbon Dioxide Anion Gap BUN Creatinine Estim Creat Clear Calc Estimated GFR Glucose POC Capillary Glucose 177 H 227 H 244 H Calcium Magnesium Iron TIBC % Saturation Ferritin Vitamin B12 Folate Stl Occult Blood (IFOB) 05/15/24 05/15/2425 05:31 08:40 12:38 WBC 7.0 RBC 2.72 L Hgb 8.4 L Hct 25.4 L MCV 93.4 MCH 30.9 MCHC 33.1 RDW 14.3 Plt Count 259 MPV 10.1 Absolute Retic Percent Retic Immature Retic Fraction Retic Hgb Content Sodium 132 L Potassium 3.9 Chloride 101 Carbon Dioxide 22 Anion Gap 9 BUN 51 H Creatinine 3.36 H Estim Creat Clear Calc 27 Estimated GFR 14 L Glucose 129 H POC Capillary Glucose 131 H 104 Calcium 8.8 Magnesium 2.2 Iron TIBC % Saturation Ferritin Vitamin B12 Folate Stl Occult Blood (IFOB)
[2024-05-15] MEDS: AZITHROMYCIN 500 MG/NS 250 ML 500 MG/250 ML BAG 250 MG IVPB (16:06)
[2024-05-15 17:41] LABS: Glucose Point of Care 120 mg/dl (65-105)
[2024-05-15] MEDS: amLODIPine BESYLATE 10 MG TABLET PO (20:34)
[2024-05-15] MEDS: INSULIN GLARGINE (*BKC) 100 UNITS/ML 30 UNITS SUB-Q (20:45)
[2024-05-16] VITALS (10 sets, daily range): BP systolic 128–147; BP diastolic 55–70; PULSE 73–86; RESP 16–20; TEMP 36.1–36.4; O2SAT 97–100
[2024-05-16 04:42] LABS: Glucose Point of Care 155 mg/dl (65-105)
[2024-05-16 05:29] LABS: Hematocrit 23.1 % (37.0-47.0); Hemoglobin 7.7 g/dL (12.0-15.0); Mean Corpuscular HGB Conc 33.3 g/dl (32-36); Mean Corpuscular Hemoglobin 30.9 pg (26-34); Mean Corpuscular Volume 92.8 fl (80-100); Mean Platelet Volume 10.1 fl (7.4-10.4); Platelet Count Result 219 k/mm3 (150-375); Red Blood Count 2.49 M/mm3 (4.2-5.4); Red Cell Distribution Width 14.2 % (11.5-14.5); White Blood Count 6.7 K/mm3 (4.5-10.0)
[2024-05-16 05:49] LABS: Anion Gap 6 mmol/L (4-12); Blood Urea Nitrogen 49 mg/dL (7-17); Calcium 8.1 mg/dL (8.4-10.2); Carbon Dioxide 26 mmol/L (22-30); Chloride 100 mmol/L (98-107); Estimated CRCL calculation 25 ml/min; Estimated Glomerular Filt Rate 13; Glucose 186 mg/dL (65-110); Magnesium 2.1 mg/dL (1.6-2.3); Potassium 3.7 mmol/L (3.4-5.0); Sodium 132 mmol/L (137-145)
[2024-05-16 08:48] LABS: Glucose Point of Care 142 mg/dl (65-105)
[2024-05-16] MEDS: FOLIC ACID 1 MG TABLET PO (09:50)
[2024-05-16] MEDS: PANTOPRAZOLE SODIUM IV 40 MG VIAL IV PUSH ×2 (09:50→20:54)
[2024-05-16] MEDS: carvediloL 25 MG TABLET PO ×2 (09:50→20:48)
[2024-05-16] MEDS: EMPAGLIFLOZIN 25 MG TABLET PO (09:50)
[2024-05-16] MEDS: ASCORBIC ACID 500 MG TABLET PO (09:50)
[2024-05-16] MEDS: FERROUS SULFATE 325 MG TABLET DR BY MOUTH (09:50)
[2024-05-16 12:06] LABS: Glucose Point of Care 208 mg/dl (65-105)
[2024-05-16 12:24] LABS: Add Urine Microscopic? YES; Appearance Urine Clear (Clear); Bacteria Urine None Seen /hpf; Bilirubin Urine Negative (Negative); Blood Urine 1+ (Negative); Color Urine Yellow (Yellow); Glucose Urine UA 2+ mg/dL (Negative); Ketones Urine Negative (Negative); Leukocyte Esterase Ur Negative LEU/UL (Negative); Nitrate Urine Negative (Negative); Protein Urine 4+ mg/dL (Negative); RBC Urine 0-2 /hpf (0-2); Specific Grav Ur 1.015 (1.001-1.035); Squamous Epithelial Cell Urine None Seen /hpf (Few); Urobilinogen Urine 0.2 mg/dL (<2.0); WBC Urine 0-5 /hpf (0-3); pH Urine 5.5 (5.0-9.0)
[2024-05-16 12:43] LABS: Creatinine Urine 78.4 mg/dL; Urea Random Urine 315 MG/DL
[2024-05-16 12:44] LABS: Sodium Urine Random 36 meq/L
[2024-05-16 12:46] LABS: Eosinophil Urine None Seen % (None Seen); Urine Eos QC 2nd Tech Confirmed
[2024-05-16] MEDS: INSULIN ASPART (*BKC) 100 UNITS/ML SUB-Q ×2 (12:48→20:47)
[2024-05-16 13:06] LABS: Total Protein Urine Random > 600 mg/dL
--- NOTE | 2024-05-16 13:43 | P.PNIM_ITS ---
Progress Note: A&P Assessment and Plan (1) Volume overload: Code(s): E87.70 - Fluid overload, unspecified Status: Acute (2) Hypertension: Code(s): I10 - Essential (primary) hypertension Status: Acute (3) Chronic kidney disease, stage 4 (severe): Code(s): N18.4 - Chronic kidney disease, stage 4 (severe) Status: Acute (4) Chronic anemia: Code(s): D64.9 - Anemia, unspecified Status: Acute (5) Insulin dependent type 2 diabetes mellitus: Code(s): E11.9 - Type 2 diabetes mellitus without complications; Z79.4 - retirement (current) use of insulin Status: Acute (6) Obstructive sleep apnea on CPAP: Code(s): G47.33 - Obstructive sleep apnea (adult) (pediatric) Status: Acute (7) Morbid obesity: Code(s): E66.01 - Morbid (severe) obesity due to excess calories Status: Acute Plan This is a 49-year-old female with history of obstructive sleep apnea on CPAP, hypertension, insulin-dependent diabetes mellitus, chronic kidney disease, and morbid obesity admitted from home for evaluation of shortness of breath. She recently had Covid in march, then possibly RSV- got somewhat better, then 3-4 days ago, started having increased dyspnea and swelling to abd and lower legs. Additionally she reports orthopnea and states that last night when she went to bed she got severely short of breath when trying to lie down and she called 911. 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 When it gets especially bad she will wear compression stockings and take metolazone. She denies history of congestive heart failure (reports normal echocardiogram in July 2023) or venous thromboembolism. In the ED: Vital signs on arrival include a blood pressure of 220/120, pulse 95, respiratory rate 23, SpO2 100% on CPAP. Labs were significant for a WBC count of 10.1, hemoglobin 9.5, BUN 45, creatinine 3.08, glucose 205, proBNP 1520, troponin less than 0.012. EKG showed a sinus rhythm without concerning ST segment changes. Chest x-ray showed questionable minimal haziness right upper lobe correlate for subtle pneumonia. She was given furosemide 40 mg IV and she is being admitted in this setting for further management. Shortness of breath no hypoxia chest x-ray with questionable minimal haziness right upper lobe correlate for subtle pneumonia. Possible CHF exacerbation with lower extremity edema. BNP elevated at 1520. CT chest showing multifocal pneumonia. Started on ceftriaxone and azithromycin. Lung scan came back normal. Continue diuresis however creatinine bumped up today and will lower down the dose to once daily. Has underlying obstructive sleep apnea. Echocardiogram 05/13/2024 showed normal systolic function right ventricular not visualized well. 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 cr slowlying inreasing. will hold lasix now. renal us. urine studies. continue to monitor renal function TARIQ on CPAP Anemia iron panel suggestive of iron deficiency she does have vaginal bleed. Pelvic ultrasound with endometrial thickening noted. Need gynecology evaluation. Stool occult blood also came back positive. Her baseline hemoglobin between 7-8 in the past. Refuses to get iron infusion. GI consultation will likely need evaluation with EGD colonoscopy which she never had before. Lower extremity edema on diuresis. May switch the amlodipine due to lower extremity edema also on Coreg. Used to be on torsemide and metolazone at home. Sees off RIN inhibitor due to renal failure most likely. DVT prophylaxis Lovenox currently on hold due to anemia Subjective Date/time seen: 05/16/24 13:43 Interval history: no new complaints. no urinary symptoms. labs reviewed. no sob, chest pain. minimal cough. leg swollen Review of Systems Review of Systems: All systems reviewed & are unremarkable except as noted in HPI and below Exam Narrative: General: Nontoxic-appearing female sitting up in bed in no acute distress. HEENT: Normocephalic, atraumatic. PERRL, EOMI. Sclera anicteric. Neck: Supple. Exam limited due to neck circumference. No obvious JVD. Respiratory: Respirations are nonlabored speaking in full sentences. Lung sounds are diminished at the bases, likely due to body habitus, and are otherwise clear Cardiovascular: Regular rate and rhythm with S1-S2. Gastrointestinal: Abdomen is morbidly obese and nontender with positive bowel sounds. Mild pitting of the lower abdomen. Skin: Warm and dry. Extremities: No cyanosis or clubbing. Legs are large with 2+ pitting edema from the feet to the lower abdomen. No palpable knots or cords. Negative Giuliana sign bilaterally. Neurological: Alert. Cranial nerves 2-12 are grossly intact. No gross focal deficits to casual conversation. Psychiatric: Pleasant and cooperative with normal mood and affect. Judgment and insight intact. Objective Data Vital Signs Vital Signs: Vital Signs - 24 hr 05/15/24 14:00 05/15/24 16:04 05/15/24 20:00 Temperature 97.5 F L Pulse Rate 76 79 78 Respiratory Rate 16 Blood Pressure 150/68 H Pulse Oximetry 98 Oxygen Delivery 05/15/24 20:34 05/15/24 22:00 05/15/24 22:20 Temperature 97.6 F Pulse Rate 75 73 75 Respiratory Rate 20 Blood Pressure 172/78 H Pulse Oximetry 99 96 Oxygen Delivery CPAP 05/16/24 00:00 05/16/24 01:00 05/16/24 04:00 Temperature Pulse Rate 86 78 73 Respiratory Rate Blood Pressure Pulse Oximetry 97 Oxygen Delivery CPAP 05/16/24 06:00 05/16/24 09:50 05/16/24 10:03 Temperature 97.5 F L Pulse Rate 74 75 Respiratory Rate 20 Blood Pressure 128/55 L Pulse Oximetry 99 99 Oxygen Delivery Room Air 05/16/24 10:03 Temperature Pulse Rate 78 Respiratory Rate Blood Pressure Pulse Oximetry Oxygen Delivery Intake/Output Intake/Output: Intake & Output 05/13/24 05/14/24 05/15/24 05/17/24 23:59 23:59 23:59 00:59 Intake Total 2210 2950 1020 1100 Output Total 2000 2565 500 Balance 210 934 210 9645 Meds/Results Medications: Active Medications Generic Name Dose Route Start Last Admin Trade Name Jeromeq PRN Reason Stop Dose Admin Acetaminophen 650 mg 05/13/24 03:36 05/13/24 18:40 Acetaminophen 325 Mg Tablet PO 650 mg Q6H PRN Administration Mild Pain (1-3) or Fever Amlodipine Besylate 10 mg 05/13/24 21:00 05/15/24 20:34 Amlodipine Besylate 10 Mg Tablet PO 10 mg HS NICK Administration Ascorbic Acid 500 mg 05/13/24 09:00 05/16/24 09:50 Ascorbic Acid 500 Mg Tablet PO 500 mg DAILY NICK Administration Aspirin 81 mg 05/13/24 09:00 05/15/24 12:53 Aspirin 81 Mg Chewable Tablet PO Not Given DAILY [facility] Carvedilol 25 mg 05/13/24 09:00 05/16/24 09:50 Carvedilol 25 Mg Tablet PO 25 mg Q12HR NICK Administration Dextrose 12.5 gm 05/13/24 03:36 Dextrose 50% 25 Gm/50 Ml Syringe IV PUSH PRN PRN Hypoglycemia Protocol Empagliflozin 25 mg 05/13/24 09:00 05/16/24 09:50 Empagliflozin 25 Mg Tablet PO 25 mg DAILY INCK Administration Enoxaparin Sodium 40 mg 05/13/24 09:00 05/14/24 08:11 Enoxaparin 40 Mg/0.4 Ml Syringe SUB-Q Not Given DAILY NICK Ferrous Sulfate 325 mg 05/13/24 09:00 05/16/24 09:50 Ferrous Sulfate [address] BY MOUTH 325 mg DAILY INCK Administration Folic Acid 1 mg 05/13/24 09:00 05/16/24 09:50 Folic Acid 1 Mg Tablet PO 1 mg DAILY NICK Administration Furosemide 40 mg 05/16/24 09:00 Furosemide Inj 40 Mg/4 Ml Vial IV PUSH DAILY NICK Glucagon 1 mg 05/13/24 03:36 Glucagon For Inj 1 Mg Vial IM PRN PRN Hypoglycemia Protocol Glucose 15 gm 05/13/24 03:36 Glucose Oral Gel 15 Gm Of Glucse In 37.5 Gm Tube PO PRN PRN Hypoglycemia Protocol Dextrose 1,000 mls @ 100 mls/hr 05/13/24 03:36 Dextrose 5% 1,000 Ml IVPB PRN PRN Hypoglycemia Protocol Ceftriaxone Sodium 1 gm in 50 mls @ 100 mls/hr 05/14/24 16:00 05/15/24 16:04 Rocephin 1 Gm/Ns 50 Ml IVPB Infused Q24H NICK Infusion Azithromycin 500 mg in 250 mls @ 250 mls/hr 05/14/24 16:00 05/15/24 17:06 Zithromax IVPB Infused Q24H NICK Infusion Insulin Aspart 4 - 8 units 05/13/24 08:00 05/16/24 12:48 Insulin Aspart (*Bkc) 100 Units/Ml SUB-Q 4 units TIDWM NICK Administration Protocol Insulin Aspart 2 - 4 units 05/13/24 21:00 05/15/24 20:44 Insulin Aspart (*Bkc) 100 Units/Ml SUB-Q Not Given HS [facility] Protocol Insulin Glargine 30 units 05/14/24 21:00 05/15/24 20:45 Insulin Glargine (*Bkc) 100 Units/Ml SUB-Q 30 units HS NICK Administration Pantoprazole Sodium 40 mg 05/14/24 16:05 05/16/24 09:50 Pantoprazole Sodium Iv 40 Mg Vial IV PUSH 40 mg Q12HR NICK Administration Radiology Results: ITS Impressions Chest X-Ray 05/13/24 05:27 Impression: Questionable minimal haziness right upper lobe. Correlate for subtle pneumonia. Venous Doppler Study 05/13/24 09:20 IMPRESSION: 1. No deep venous thrombosis. Pulmonary Perfusion Imaging 05/14/24 14:44 IMPRESSION: 1. Normal perfusion. Chest CT 05/14/24 14:48 IMPRESSION: 1. Patchy groundglass and airspace opacities in the upper lobes, consistent with pneumonia. Upper Quadrant Ultrasound 05/15/24 10:53 IMPRESSION: 1. Normal right upper quadrant ultrasound. Pelvis Ultrasound 05/15/24 10:54 IMPRESSION: 1. Thickened endometrial complex, which may be endometrial hyperplasia or polyp. Renal Ultrasound 05/16/24 12:29 Impression: Unremarkable ultrasound of the kidneys and urinary bladder. Labs Labs: Laboratory Results - last 24 hr 05/15/24 05/15/24 05/16/24 17:28 20:44 05:20 WBC 6.7 RBC 2.49 L Hgb 7.7 L Hct 23.1 L MCV 92.8 MCH 30.9 MCHC 33.3 RDW 14.2 Plt Count 219 MPV 10.1 Sodium 132 L Potassium 3.7 Chloride 100 Carbon Dioxide 26 Anion Gap 6 BUN 49 H Creatinine 3.62 H Estim Creat Clear Calc 25 Estimated GFR 13 L Glucose 186 H POC Capillary Glucose 120 H 155 H Calcium 8.1 L Magnesium 2.1 Urine Color Urine Appearance Urine pH Ur Specific [place] Urine Protein Urine Glucose (UA) Urine Ketones Ur Blood (Man) Urine Nitrate Urine Bilirubin Urine Urobilinogen Leukocyte Esterase Rfl Urine RBC Urine WBC Ur Squamous Epith Cells Urine Bacteria Urine Casts Urine Eosinophils U Random Total Protein Ur Random Sodium Ur Random Urea Urine Creatinine 05/16/24 05/16/24 05/16/24 08:39 12:03 12:10 WBC RBC Hgb Hct MCV MCH MCHC RDW Plt Count MPV Sodium Potassium Chloride Carbon Dioxide Anion Gap BUN Creatinine Estim Creat Clear Calc Estimated GFR Glucose POC Capillary Glucose 142 H 208 H Calcium Magnesium Urine Color Yellow Urine Appearance Clear Urine pH 5.5 Ur Specific [place] 1.015 Urine Protein 4+ H Urine Glucose (UA) 2+ H Urine Ketones Negative Ur Blood (Man) 1+ H Urine Nitrate Negative Urine Bilirubin Negative Urine Urobilinogen 0.2 Leukocyte Esterase Rfl Negative Urine RBC 0-2 Urine WBC 0-5 Ur Squamous Epith Cells None seen Urine Bacteria None seen Urine Casts 3-5 Urine Eosinophils None seen U Random Total Protein > 600 Ur Random Sodium 36 Ur Random Urea 315 Urine Creatinine 78.4
[2024-05-16] MEDS: AZITHROMYCIN 500 MG/NS 250 ML 500 MG/250 ML BAG 250 MG IVPB (17:26)
[2024-05-16 17:27] LABS: Glucose Point of Care 183 mg/dl (65-105)
[2024-05-16] MEDS: amLODIPine BESYLATE 10 MG TABLET PO (20:48)
[2024-05-16] MEDS: INSULIN GLARGINE (*BKC) 100 UNITS/ML 30 UNITS SUB-Q (20:48)
[2024-05-17] VITALS: PULSE 80; O2SAT 96
[2024-05-17 04:13] LABS: Glucose Point of Care 247 mg/dl (65-105)
[2024-05-17 05:55] LABS: Hematocrit 22.9 % (37.0-47.0); Hemoglobin 7.6 g/dL (12.0-15.0); Mean Corpuscular HGB Conc 33.2 g/dl (32-36); Mean Corpuscular Hemoglobin 31.1 pg (26-34); Mean Corpuscular Volume 93.9 fl (80-100); Mean Platelet Volume 10.2 fl (7.4-10.4); Platelet Count Result 214 k/mm3 (150-375); Red Blood Count 2.44 M/mm3 (4.2-5.4); Red Cell Distribution Width 13.9 % (11.5-14.5); White Blood Count 6.5 K/mm3 (4.5-10.0)
[2024-05-17 06:00] VITALS: BP 125/54; PULSE 76; RESP 20; TEMP 36.1; O2SAT 99
[2024-05-17 06:15] LABS: Anion Gap 7 mmol/L (4-12); Blood Urea Nitrogen 52 mg/dL (7-17); Calcium 7.9 mg/dL (8.4-10.2); Carbon Dioxide 23 mmol/L (22-30); Chloride 102 mmol/L (98-107); Estimated CRCL calculation 24 ml/min; Estimated Glomerular Filt Rate 13; Glucose 149 mg/dL (65-110); Magnesium 2.2 mg/dL (1.6-2.3); Potassium 3.7 mmol/L (3.4-5.0); Sodium 132 mmol/L (137-145)
[2024-05-17 09:07] LABS: Glucose Point of Care 140 mg/dl (65-105)
[2024-05-17] MEDS: FERROUS SULFATE 325 MG TABLET DR BY MOUTH (09:22)
[2024-05-17] MEDS: PANTOPRAZOLE SODIUM IV 40 MG VIAL IV PUSH ×2 (09:22→20:21)
[2024-05-17 09:23] VITALS: PULSE 78
[2024-05-17] MEDS: carvediloL 25 MG TABLET PO ×2 (09:23→20:21)
[2024-05-17] MEDS: EMPAGLIFLOZIN 25 MG TABLET PO (09:23)
[2024-05-17] MEDS: ASCORBIC ACID 500 MG TABLET PO (09:24)
[2024-05-17] MEDS: FOLIC ACID 1 MG TABLET PO (09:24)
--- NOTE | 2024-05-17 11:17 | PM.IMPN ---
Progress Note: A&P Assessment and Plan (1) Volume overload: Code(s): E87.70 - Fluid overload, unspecified Status: Acute (2) Hypertension: Code(s): I10 - Essential (primary) hypertension Status: Acute (3) Chronic kidney disease, stage 4 (severe): Code(s): N18.4 - Chronic kidney disease, stage 4 (severe) Status: Acute (4) Chronic anemia: Code(s): D64.9 - Anemia, unspecified Status: Acute (5) Insulin dependent type 2 diabetes mellitus: Code(s): E11.9 - Type 2 diabetes mellitus without complications; Z79.4 - snf (current) use of insulin Status: Acute (6) Obstructive sleep apnea on CPAP: Code(s): G47.33 - Obstructive sleep apnea (adult) (pediatric) Status: Acute (7) Morbid obesity: Code(s): E66.01 - Morbid (severe) obesity due to excess calories Status: Acute Plan This is a 49-year-old female with history of obstructive sleep apnea on CPAP, hypertension, insulin-dependent diabetes mellitus, chronic kidney disease, and morbid obesity admitted from home for evaluation of shortness of breath. She recently had Covid in march, then possibly RSV- got somewhat better, then 3-4 days ago, started having increased dyspnea and swelling to abd and lower legs. Additionally she reports orthopnea and states that last night when she went to bed she got severely short of breath when trying to lie down and she called 911. 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 When it gets especially bad she will wear compression stockings and take metolazone. She denies history of congestive heart failure (reports normal echocardiogram in July 2023) or venous thromboembolism. In the ED: Vital signs on arrival include a blood pressure of 220/120, pulse 95, respiratory rate 23, SpO2 100% on CPAP. Labs were significant for a WBC count of 10.1, hemoglobin 9.5, BUN 45, creatinine 3.08, glucose 205, proBNP 1520, troponin less than 0.012. EKG showed a sinus rhythm without concerning ST segment changes. Chest x-ray showed questionable minimal haziness right upper lobe correlate for subtle pneumonia. She was given furosemide 40 mg IV and she is being admitted in this setting for further management. Shortness of breath no hypoxia chest x-ray with questionable minimal haziness right upper lobe correlate for subtle pneumonia. Possible CHF exacerbation with lower extremity edema. BNP elevated at 1520. CT chest showing multifocal pneumonia. Started on ceftriaxone and azithromycin. Lung scan came back normal. Continue diuresis however creatinine bumped up in continues to incline diuretics currently on hold. Urinalysis is bland. Renal ultrasound came back negative. Some of the lower extremity swelling is related to lymphedema and/or venous insufficiency. Compression stockings and also suggested lymphedema pump Has underlying obstructive sleep apnea. Echocardiogram 05/13/2024 showed normal systolic function right ventricular not visualized well. Type 2 diabetes on insulin adjust dose as needed ammon on CKD stage 4 follows with gauntlet pairer. cr slowlying inreasing. Lasix on hold renal us negative. urine studies reviewed. continue to monitor renal function. Renal consultation. Await stabilization of AMMON. TARIQ on CPAP Anemia iron panel suggestive of iron deficiency she does have vaginal bleed. Pelvic ultrasound with endometrial thickening noted. Need gynecology evaluation. Stool occult blood also came back positive. Her baseline hemoglobin between 7-8 in the past. Refuses to get iron infusion. GI consultation will likely need evaluation with EGD colonoscopy which she never had before. Lower extremity edema on diuresis. May switch the amlodipine due to lower extremity edema also on Coreg. Used to be on torsemide and metolazone at home. Sees off RIN inhibitor due to renal failure most likely. DVT prophylaxis Lovenox currently on hold due to anemia Subjective Date/time seen: 05/17/24 11:17 Interval history: No overnight events. She reports good urine output. Nothing is charted in the system. Breathing is getting better. Leg swelling still persists. She has compression stockings at home. Review of Systems Review of Systems: All systems reviewed & are unremarkable except as noted in HPI and below Exam Narrative: General: Nontoxic-appearing female sitting up in bed in no acute distress. HEENT: Normocephalic, atraumatic. PERRL, EOMI. Sclera anicteric. Neck: Supple. Exam limited due to neck circumference. No obvious JVD. Respiratory: Respirations are nonlabored speaking in full sentences. Lung sounds are diminished at the bases, likely due to body habitus, and are otherwise clear Cardiovascular: Regular rate and rhythm with S1-S2. Gastrointestinal: Abdomen is morbidly obese and nontender with positive bowel sounds. Mild pitting of the lower abdomen. Skin: Warm and dry. Extremities: No cyanosis or clubbing. Legs are large with 2+ pitting edema from the feet to the lower abdomen. No palpable knots or cords. Negative Giuliana sign bilaterally. Neurological: Alert. Cranial nerves 2-12 are grossly intact. No gross focal deficits to casual conversation. Psychiatric: Pleasant and cooperative with normal mood and affect. Judgment and insight intact. Objective Data Vital Signs Vital Signs: Vital Signs - 24 hr 05/16/24 14:00 05/16/24 16:00 05/16/24 20:00 Temperature 97.6 F Pulse Rate 75 75 Respiratory Rate 16 Blood Pressure 147/67 H Pulse Oximetry 100 Oxygen Delivery Room Air Fraction of Inspired Oxygen 21 05/16/24 20:00 05/16/24 21:31 05/17/24 00:00 Temperature 97.0 F L Pulse Rate 75 75 80 Respiratory Rate 20 Blood Pressure 147/70 H Pulse Oximetry 98 96 Oxygen Delivery CPAP Fraction of Inspired Oxygen 05/17/24 02:40 05/17/24 06:00 05/17/24 08:00 Temperature 97.0 F L Pulse Rate 76 Respiratory Rate 20 Blood Pressure 125/54 L Pulse Oximetry 99 Oxygen Delivery CPAP Room Air Fraction of Inspired Oxygen 05/17/24 09:23 Temperature Pulse Rate 78 Respiratory Rate Blood Pressure Pulse Oximetry Oxygen Delivery Fraction of Inspired Oxygen Intake/Output Intake/Output: Intake & Output 05/14/24 05/15/24 05/17/24 05/17/24 23:59 23:59 00:59 23:59 Intake Total 2950 1020 2430 1726 Output Total 2565 500 Balance 833 349 2023 1726 Meds/Results Medications: Active Medications Generic Name Dose Route Start Last Admin Trade Name Freq PRN Reason Stop Dose Admin Acetaminophen 650 mg 05/13/24 03:36 05/13/24 18:40 Acetaminophen 325 Mg Tablet PO 650 mg Q6H PRN Administration Mild Pain (1-3) or Fever Amlodipine Besylate 10 mg 05/13/24 21:00 05/16/24 20:48 Amlodipine Besylate 10 Mg Tablet PO 10 mg HS NICK Administration Ascorbic Acid 500 mg 05/13/24 09:00 05/17/24 09:24 Ascorbic Acid 500 Mg Tablet PO 500 mg DAILY NICK Administration Aspirin 81 mg 05/13/24 09:00 05/15/24 12:53 Aspirin 81 Mg Chewable Tablet PO Not Given DAILY [facility] Carvedilol 25 mg 05/13/24 09:00 05/17/24 09:23 Carvedilol 25 Mg Tablet PO 25 mg Q12HR NICK Administration Dextrose 12.5 gm 05/13/24 03:36 Dextrose 50% 25 Gm/50 Ml Syringe IV PUSH PRN PRN Hypoglycemia Protocol Empagliflozin 25 mg 05/13/24 09:00 05/17/24 09:23 Empagliflozin 25 Mg Tablet PO 25 mg DAILY NICK Administration Enoxaparin Sodium 40 mg 05/13/24 09:00 05/14/24 08:11 Enoxaparin 40 Mg/0.4 Ml Syringe SUB-Q Not Given DAILY [facility] Ferrous Sulfate 325 mg 05/13/24 09:00 05/17/24 09:22 Ferrous Sulfate [address] BY MOUTH 325 mg DAILY NICK Administration Folic Acid 1 mg 05/13/24 09:00 05/17/24 09:24 Folic Acid 1 Mg Tablet PO 1 mg DAILY NICK Administration Furosemide 40 mg 05/16/24 09:00 Furosemide Inj 40 Mg/4 Ml Vial IV PUSH DAILY [facility] Glucagon 1 mg 05/13/24 03:36 Glucagon For Inj 1 Mg Vial IM PRN PRN Hypoglycemia Protocol Glucose 15 gm 05/13/24 03:36 Glucose Oral Gel 15 Gm Of Glucse In 37.5 Gm Tube PO PRN PRN Hypoglycemia Protocol Dextrose 1,000 mls @ 100 mls/hr 05/13/24 03:36 Dextrose 5% 1,000 Ml IVPB PRN PRN Hypoglycemia Protocol Ceftriaxone Sodium 1 gm in 50 mls @ 100 mls/hr 05/14/24 16:00 05/16/24 17:57 Rocephin 1 Gm/Ns 50 Ml IVPB Infused Q24H NICK Infusion Azithromycin 500 mg in 250 mls @ 250 mls/hr 05/14/24 16:00 05/16/24 18:26 Zithromax IVPB Infused Q24H NICK Infusion Insulin Aspart 4 - 8 units 05/13/24 08:00 05/17/24 09:14 Insulin Aspart (*Bkc) 100 Units/Ml SUB-Q Not Given TIDWM [facility] Protocol Insulin Aspart 2 - 4 units 05/13/24 21:00 05/16/24 20:47 Insulin Aspart (*Bkc) 100 Units/Ml SUB-Q 2 units HS NICK Administration Protocol Insulin Glargine 30 units 05/14/24 21:00 05/16/24 20:48 Insulin Glargine (*Bkc) 100 Units/Ml SUB-Q 30 units HS NICK Administration Pantoprazole Sodium 40 mg 05/14/24 16:05 05/17/24 09:22 Pantoprazole Sodium Iv 40 Mg Vial IV PUSH 40 mg Q12HR INCK Administration Radiology Results: ITS Impressions Chest X-Ray 05/13/24 05:27 Impression: Questionable minimal haziness right upper lobe. Correlate for subtle pneumonia. Venous Doppler Study 05/13/24 09:20 IMPRESSION: 1. No deep venous thrombosis. Pulmonary Perfusion Imaging 05/14/24 14:44 IMPRESSION: 1. Normal perfusion. Chest CT 05/14/24 14:48 IMPRESSION: 1. Patchy groundglass and airspace opacities in the upper lobes, consistent with pneumonia. Upper Quadrant Ultrasound 05/15/24 10:53 IMPRESSION: 1. Normal right upper quadrant ultrasound. Pelvis Ultrasound 05/15/24 10:54 IMPRESSION: 1. Thickened endometrial complex, which may be endometrial hyperplasia or polyp. Renal Ultrasound 05/16/24 12:29 Impression: Unremarkable ultrasound of the kidneys and urinary bladder. Labs Labs: Laboratory Results - last 24 hr 05/16/24 05/16/24 05/16/24 12:03 12:10 17:20 WBC RBC Hgb Hct MCV MCH MCHC RDW Plt Count MPV Sodium Potassium Chloride Carbon Dioxide Anion Gap BUN Creatinine Estim Creat Clear Calc Estimated GFR Glucose POC Capillary Glucose 208 H 183 H Calcium Magnesium Urine Color Yellow Urine Appearance Clear Urine pH 5.5 Ur Specific [place] 1.015 Urine Protein 4+ H Urine Glucose (UA) 2+ H Urine Ketones Negative Ur Blood (Man) 1+ H Urine Nitrate Negative Urine Bilirubin Negative Urine Urobilinogen 0.2 Leukocyte Esterase Rfl Negative Urine RBC 0-2 Urine WBC 0-5 Ur Squamous Epith Cells None seen Urine Bacteria None seen Urine Casts 3-5 Urine Eosinophils None seen U Random Total Protein > 600 Ur Random Sodium 36 Ur Random Urea 315 Urine Creatinine 78.4 05/16/24 05/17/24 05/17/24 20:12 05:46 08:56 WBC 6.5 RBC 2.44 L Hgb 7.6 L Hct 22.9 L MCV 93.9 MCH 31.1 MCHC 33.2 RDW 13.9 Plt Count 214 MPV 10.2 Sodium 132 L Potassium 3.7 Chloride 102 Carbon Dioxide 23 Anion Gap 7 BUN 52 H Creatinine 3.74 H Estim Creat Clear Calc 24 Estimated GFR 13 L Glucose 149 H POC Capillary Glucose 247 H 140 H Calcium 7.9 L Magnesium 2.2 Urine Color Urine Appearance Urine pH Ur Specific [place] Urine Protein Urine Glucose (UA) Urine Ketones Ur Blood (Man) Urine Nitrate Urine Bilirubin Urine Urobilinogen Leukocyte Esterase Rfl Urine RBC Urine WBC Ur Squamous Epith Cells Urine Bacteria Urine Casts Urine Eosinophils U Random Total Protein Ur Random Sodium Ur Random Urea Urine Creatinine
--- NOTE | 2024-05-17 11:20 | PM.CNNEP ---
History of Present Illness Reason for Consult Consult date: 05/17/24 Reason for consult: acute renal failure (on chronic kidney disease versus progression of CKD) Chief Complaint Chief complaint: Dyspnea, CKD, Peripheral edema Review of Systems Review of Systems: As per HPI. [facility] Past Medical History Medical History (Updated 05/15/24 @ 12:20 by Hernan Mcguire MD) Pneumonia Heavy periods Acute on chronic anemia Rectal bleeding Morbid obesity Obstructive sleep apnea on CPAP Insulin dependent type 2 diabetes mellitus Chronic anemia Chronic kidney disease, stage 4 (severe) Hypertension Vestibular migraine Surgical History Surgical History (Updated 05/13/24 @ 03:41 by Isabelle Cee PA-C) History of section Family History Family History (Updated 05/13/24 @ 05:27 by Martina Juarez RN) Father Diabetes mellitus Mother Hypertension COPD (chronic obstructive pulmonary disease) Social History Social History (Updated 05/13/24 @ 03:42 by Isabelle Cee PA-C) Social History: Surrogate medical decision maker: Marco A Chaitanya, spouse. Code status: Full code. Smoking status: Former smoker Tobacco type: cigarettes Alcohol intake: never Substance use: never Substance use type: does not use Do You Feel Safe in your Home?: Yes Lack of Transportation: No Lack of Food: Never True Current Housing: I Have Housing Concerned About Future Housing: No Difficulty Paying Gas/Electric Bills: No Difficulty Paying for Meds: No Currently Unemployed: No Education: Associate Degree Difficulty w/ Childcare or Family Care: No Additional living arrangements comments: Lives with spouse in [place]. They have 3 grown children. 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 Spiritual care concerns: No Meds Home Medications and Allergies Home Medications ?Medication ?Instructions ?Recorded ?Confirmed ?Type amlodipine 10 mg tablet 10 mg PO HS 05/13/24 05/13/24 History ascorbic acid (vitamin C) 500 mg 500 mg PO DAILY 05/13/24 05/13/24 History chewable tablet (Fruit C-500) aspirin 81 mg chewable tablet 1 tablet PO DAILY 05/13/24 05/13/24 History carvedilol 25 mg tablet 25 mg PO Q12H 05/13/24 05/13/24 History empagliflozin 25 mg tablet 25 mg PO DAILY 05/13/24 05/13/24 History (Jardiance) ergocalciferol (vitamin D2) 1,250 1,250 mcg PO WEEKLY 05/13/24 05/13/24 History mcg (50,000 unit) capsule (Vitamin D2) ferrous sulfate 325 mg (65 mg 325 mg PO DAILY 05/13/24 05/13/24 History iron) tablet folic acid 1 mg tablet 1 mg PO DAILY 05/13/24 05/13/24 History insulin glargine-yfgn 100 unit/mL 35 unit subcut BID 05/13/24 05/13/24 History subcutaneous solution insulin lispro 100 unit/mL 15 unit subcut AC 05/13/24 05/13/24 History subcutaneous pen metolazone 2.5 mg tablet 2.5 mg PO DAILY PRN edema 05/13/24 05/13/24 History torsemide 10 mg tablet 10 mg PO DAILY 05/13/24 05/13/24 History torsemide 20 mg tablet 20 mg PO DAILY 05/13/24 05/13/24 History Allergies Allergy/AdvReac Type Severity Reaction Status Date / Time cephalexin Allergy Mild RASH Verified 05/13/24 01:27 ofloxacin Allergy Mild RASH Verified 05/13/24 01:27 ciprofloxacin Allergy Unknown Hives,Rash Verified 05/15/24 11:06 meperidine Allergy Unknown Hives Verified 05/13/24 01:27 morphine Allergy Unknown Hives Verified 05/13/24 01:27 albuterol AdvReac Migraine Verified 05/13/24 01:27 Vital Signs Vital Signs Temp Pulse Resp BP Pulse Ox O2 Del Method FiO2 05/17/24 09:23 78 05/17/24 08:00 Room Air 05/17/24 06:00 97.0 F L 76 20 125/54 L 99 05/17/24 02:40 CPAP 05/17/24 00:00 80 96 CPAP 05/16/24 21:31 97.0 F L 75 20 147/70 H 98 05/16/24 20:00 75 05/16/24 20:00 Room Air 21 Exam Narrative: GENERAL APPEARANCE: well developed well nourished female in no acute distress HEENT: normocephalic, atraumatic, normal conjunctiva and sclera, nares patient NECK: no lymphadenopathy, thyromegaly, or JVD MOUTH: normal lips, teeth, and gums CARDIOVASCULAR: decreased at bases RESPIRATORY: clear to auscultation bilaterally ABDOMEN: obese but soft, nontender, nondistended, positive bowel sounds present; some abdominal wall pitting edema noted. EXTREMITIES: no evidence of cyanosis, clubbing, or edema NEUROLOGICAL: alert and oriented x 3; CN II - XII intact bilaterally; no focal deficits noted Results Lab Results 05/17/24 05:46 05/17/24 05:46 Lab results: Most recent lab results ABG pH 7.393 (7.350-7.450) 05/13/24 01:27 ABG pCO2 39.2 mmHg (35.0-45.0) 05/13/24 01:27 ABG pO2 155.8 mmHg (80.0-100.0) H 05/13/24 01:27 ABG HCO3 23.4 mEq/l (22.0-26.0) 05/13/24 01:27 ABG O2 Saturation 99.0 % (95.0-100.0) 05/13/24 01:27 Calcium 7.9 mg/dL (8.4-10.2) L 05/17/24 05:46 Magnesium 2.2 mg/dL (1.6-2.3) 05/17/24 05:46 Urine Creatinine 78.4 mg/dL 05/16/24 12:10
[2024-05-17 12:02] LABS: Glucose Point of Care 168 mg/dl (65-105)
[2024-05-17 14:00] VITALS: BP 125/59; PULSE 74; RESP 18; TEMP 35.9; O2SAT 99
[2024-05-17] MEDS: AZITHROMYCIN 500 MG/NS 250 ML 500 MG/250 ML BAG 250 MG IVPB (16:09)
[2024-05-17 16:49] LABS: Glucose Point of Care 177 mg/dl (65-105)
[2024-05-17 20:00] VITALS: PULSE 74; RESP 18; O2SAT 99
[2024-05-17] MEDS: amLODIPine BESYLATE 10 MG TABLET PO (20:21)
[2024-05-17] MEDS: INSULIN GLARGINE (*BKC) 100 UNITS/ML 30 UNITS SUB-Q (21:22)
[2024-05-17] MEDS: INSULIN ASPART (*BKC) 100 UNITS/ML SUB-Q (21:23)
[2024-05-17 22:49] VITALS: BP 136/58; PULSE 80; RESP 20; TEMP 36.3; O2SAT 98
[2024-05-18] VITALS (7 sets, daily range): BP systolic 132–136; BP diastolic 60–63; PULSE 70–89; RESP 19–20; TEMP 36.2–36.4; O2SAT 95–100
[2024-05-18 05:49] LABS: Basophils Percent Auto 0.6 % (0.2-1.2); Eosinophils Absolute Auto 0.6 K/mm3 (0-0.3); Eosinophils Percent Auto 9.1 % (0-4.4); Hematocrit 24.1 % (37.0-47.0); Hemoglobin 7.9 g/dL (12.0-15.0); Immature Granulocyte Absolute 0.03 K/mm3 (0.00-0.031); Immature Granulocyte Percent A 0.4 % (0-0.5); Lymphocytes Absolute Auto 1.35 K/mm3 (0.9-3.2); Lymphocytes Percent Auto 19.1 % (18.3-44.2); Mean Corpuscular HGB Conc 32.8 g/dl (32-36); Mean Corpuscular Hemoglobin 30.9 pg (26-34); Mean Corpuscular Volume 94.1 fl (80-100); Mean Platelet Volume 10.5 fl (7.4-10.4); Monocytes Absolute Auto 0.6 K/mm3 (0.1-0.6); Monocytes Percent Auto 7.8 % (2.6-8.5); Neutrophils Absolute Auto 4.5 K/mm3 (1.3-6.7); Platelet Count Result 230 k/mm3 (150-375); Red Blood Count 2.56 M/mm3 (4.2-5.4); Red Cell Distribution Width 13.6 % (11.5-14.5); White Blood Count 7.1 K/mm3 (4.5-10.0)
[2024-05-18 06:13] LABS: Alanine Aminotransferase 18 U/L (6-35); Albumin Level 2.9 g/dL (3.5-5.1); Alkaline Phosphatase 43 U/L (38-126); Anion Gap 9 mmol/L (4-12); Aspartate Amino Transferase 21 U/L (14-36); Bilirubin,Total 0.3 mg/dL (0.2-1.3); Blood Urea Nitrogen 56 mg/dL (7-17); Calcium 7.6 mg/dL (8.4-10.2); Carbon Dioxide 21 mmol/L (22-30); Chloride 101 mmol/L (98-107); Estimated CRCL calculation 26 ml/min; Estimated Glomerular Filt Rate 14; Glucose 163 mg/dL (65-110); Magnesium 2.5 mg/dL (1.6-2.3); Potassium 3.8 mmol/L (3.4-5.0); Sodium 131 mmol/L (137-145)
[2024-05-18 06:27] LABS: Glucose Point of Care 236 mg/dl (65-105)
[2024-05-18 06:37] LABS: Creatine Kinase 111 U/L (30-135)
[2024-05-18 07:02] LABS: Hemoglobin A1C 6.7 % (<5.7)
[2024-05-18 08:17] LABS: Glucose Point of Care 140 mg/dl (65-105)
[2024-05-18] MEDS: carvediloL 25 MG TABLET PO (08:50)
[2024-05-18] MEDS: PANTOPRAZOLE SODIUM IV 40 MG VIAL IV PUSH (08:50)
[2024-05-18] MEDS: FOLIC ACID 1 MG TABLET PO (08:51)
[2024-05-18] MEDS: ASCORBIC ACID 500 MG TABLET PO (08:51)
[2024-05-18] MEDS: EMPAGLIFLOZIN 25 MG TABLET PO (08:51)
[2024-05-18] MEDS: FERROUS SULFATE 325 MG TABLET DR BY MOUTH (08:51)
--- NOTE | 2024-05-18 09:45 | PM.PNNEP ---
Subjective Date/time seen: 05/18/24 10:51 Objective Data Vital Signs Vital Signs: Vital Signs Temp Pulse Resp BP Pulse Ox O2 Del Method FiO2 05/18/24 08:50 Room Air 05/18/24 08:50 73 05/18/24 06:00 97.5 F L 72 20 136/63 100 05/18/24 01:45 72 97 CPAP 05/17/24 22:49 97.4 F L 80 20 136/58 L 98 05/17/24 20:00 74 18 99 Room Air 21 05/17/24 14:00 96.6 F L 74 18 125/59 L 99 Intake/Output Intake/Output: Intake & Output 05/15/24 05/17/24 05/17/24 05/18/24 23:59 00:59 23:59 23:59 Intake Total 1020 2430 4016 1176 Output Total 500 1 Balance 520 2430 4016 1175 Meds/Results Medications: Active Medications Generic Name Dose Route Start Last Admin Trade Name Freq PRN Reason Stop Dose Admin Acetaminophen 650 mg 05/13/24 03:36 05/13/24 18:40 Acetaminophen 325 Mg Tablet PO 650 mg Q6H PRN Administration Mild Pain (1-3) or Fever Amlodipine Besylate 10 mg 05/13/24 21:00 05/17/24 20:21 Amlodipine Besylate 10 Mg Tablet PO 10 mg HS NICK Administration Ascorbic Acid 500 mg 05/13/24 09:00 05/18/24 08:51 Ascorbic Acid 500 Mg Tablet PO 500 mg DAILY NICK Administration Aspirin 81 mg 05/13/24 09:00 05/15/24 12:53 Aspirin 81 Mg Chewable Tablet PO Not Given DAILY NICK Carvedilol 25 mg 05/13/24 09:00 05/18/24 08:50 Carvedilol 25 Mg Tablet PO 25 mg Q12HR NICK Administration Dextrose 12.5 gm 05/13/24 03:36 Dextrose 50% 25 Gm/50 Ml Syringe IV PUSH PRN PRN Hypoglycemia Protocol Empagliflozin 25 mg 05/13/24 09:00 05/18/24 08:51 Empagliflozin 25 Mg Tablet PO 25 mg DAILY NICK Administration Enoxaparin Sodium 40 mg 05/13/24 09:00 05/14/24 08:11 Enoxaparin 40 Mg/0.4 Ml Syringe SUB-Q Not Given DAILY NICK Ferrous Sulfate 325 mg 05/13/24 09:00 05/18/24 08:51 Ferrous Sulfate [address] BY MOUTH 325 mg DAILY NICK Administration Folic Acid 1 mg 05/13/24 09:00 05/18/24 08:51 Folic Acid 1 Mg Tablet PO 1 mg DAILY NICK Administration Furosemide 40 mg 05/16/24 09:00 Furosemide Inj 40 Mg/4 Ml Vial IV PUSH DAILY NICK Glucagon 1 mg 05/13/24 03:36 Glucagon For Inj 1 Mg Vial IM PRN PRN Hypoglycemia Protocol Glucose 15 gm 05/13/24 03:36 Glucose Oral Gel 15 Gm Of Glucse In 37.5 Gm Tube PO PRN PRN Hypoglycemia Protocol Dextrose 1,000 mls @ 100 mls/hr 05/13/24 03:36 Dextrose 5% 1,000 Ml IVPB PRN PRN Hypoglycemia Protocol Ceftriaxone Sodium 1 gm in 50 mls @ 100 mls/hr 05/14/24 16:00 05/17/24 16:39 Rocephin 1 Gm/Ns 50 Ml IVPB Infused Q24H NICK Infusion Azithromycin 500 mg in 250 mls @ 250 mls/hr 05/14/24 16:00 05/17/24 17:09 Zithromax IVPB Infused Q24H NICK Infusion Insulin Aspart 4 - 8 units 05/13/24 08:00 05/17/24 17:06 Insulin Aspart (*Bkc) 100 Units/Ml SUB-Q Not Given TIDWM [facility] Protocol Insulin Aspart 2 - 4 units 05/13/24 21:00 05/17/24 21:23 Insulin Aspart (*Bkc) 100 Units/Ml SUB-Q 2 units HS NICK Administration Protocol Insulin Glargine 30 units 05/14/24 21:00 05/17/24 21:22 Insulin Glargine (*Bkc) 100 Units/Ml SUB-Q 30 units HS NICK Administration Pantoprazole Sodium 40 mg 05/14/24 16:05 05/18/24 08:50 Pantoprazole Sodium Iv 40 Mg Vial IV PUSH 40 mg Q12HR NICK Administration Radiology Results: ITS Impressions Chest X-Ray 05/13/24 05:27 Impression: Questionable minimal haziness right upper lobe. Correlate for subtle pneumonia. Venous Doppler Study 05/13/24 09:20 IMPRESSION: 1. No deep venous thrombosis. Pulmonary Perfusion Imaging 05/14/24 14:44 IMPRESSION: 1. Normal perfusion. Chest CT 05/14/24 14:48 IMPRESSION: 1. Patchy groundglass and airspace opacities in the upper lobes, consistent with pneumonia. Upper Quadrant Ultrasound 05/15/24 10:53 IMPRESSION: 1. Normal right upper quadrant ultrasound. Pelvis Ultrasound 05/15/24 10:54 IMPRESSION: 1. Thickened endometrial complex, which may be endometrial hyperplasia or polyp. Renal Ultrasound 05/16/24 12:29 Impression: Unremarkable ultrasound of the kidneys and urinary bladder. Labs Labs: Laboratory Tests 05/18/24 05:25 05/18/24 05:26 Hemoglobin A1c 6.7 H Calcium 7.6 L Magnesium 2.5 H Total Bilirubin 0.3 AST 21 ALT 18 Alkaline Phosphatase 43 Total Creatine Kinase 111 Total Protein 6.0 L Albumin 2.9 L
--- NOTE | 2024-05-18 11:31 | PM.IMPN ---
Progress Note: A&P Assessment and Plan (1) Volume overload: Code(s): E87.70 - Fluid overload, unspecified Status: Acute (2) Hypertension: Code(s): I10 - Essential (primary) hypertension Status: Acute (3) Chronic kidney disease, stage 4 (severe): Code(s): N18.4 - Chronic kidney disease, stage 4 (severe) Status: Acute (4) Chronic anemia: Code(s): D64.9 - Anemia, unspecified Status: Acute (5) Insulin dependent type 2 diabetes mellitus: Code(s): E11.9 - Type 2 diabetes mellitus without complications; Z79.4 - [facility]CI (current) use of insulin Status: Acute (6) Obstructive sleep apnea on CPAP: Code(s): G47.33 - Obstructive sleep apnea (adult) (pediatric) Status: Acute (7) Morbid obesity: Code(s): E66.01 - Morbid (severe) obesity due to excess calories Status: Acute Plan This is a 49-year-old female with history of obstructive sleep apnea on CPAP, hypertension, insulin-dependent diabetes mellitus, chronic kidney disease, and morbid obesity admitted from home for evaluation of shortness of breath. She recently had Covid in march, then possibly RSV- got somewhat better, then 3-4 days ago, started having increased dyspnea and swelling to abd and lower legs. Additionally she reports orthopnea and states that last night when she went to bed she got severely short of breath when trying to lie down and she called 911. 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 When it gets especially bad she will wear compression stockings and take metolazone. She denies history of congestive heart failure (reports normal echocardiogram in July 2023) or venous thromboembolism. In the ED: Vital signs on arrival include a blood pressure of 220/120, pulse 95, respiratory rate 23, SpO2 100% on CPAP. Labs were significant for a WBC count of 10.1, hemoglobin 9.5, BUN 45, creatinine 3.08, glucose 205, proBNP 1520, troponin less than 0.012. EKG showed a sinus rhythm without concerning ST segment changes. Chest x-ray showed questionable minimal haziness right upper lobe correlate for subtle pneumonia. She was given furosemide 40 mg IV and she is being admitted in this setting for further management. Shortness of breath no hypoxia chest x-ray with questionable minimal haziness right upper lobe correlate for subtle pneumonia. Possible CHF exacerbation with lower extremity edema. BNP elevated at 1520. CT chest showing multifocal pneumonia. Started on ceftriaxone and azithromycin. Lung scan came back normal. Continue diuresis however creatinine bumped up in continues to incline diuretics currently on hold. Urinalysis is bland. Renal ultrasound came back negative. Some of the lower extremity swelling is related to lymphedema and/or venous insufficiency. Compression stockings and also suggested lymphedema pump. Creatinine trending down now. Plan to resume torsemide at discharge. Has underlying obstructive sleep apnea. Echocardiogram 05/13/2024 showed normal systolic function right ventricular not visualized well. Type 2 diabetes on insulin adjust dose as needed kim on CKD stage 4 follows with seismology technical officer. cr slowlying inreasing. Lasix on hold renal us negative. urine studies reviewed. continue to monitor renal function. Renal consultation. Creatinine trending down now TARIQ on CPAP Anemia iron panel suggestive of iron deficiency she does have vaginal bleed. Pelvic ultrasound with endometrial thickening noted. Need gynecology evaluation. Stool occult blood also came back positive. Her baseline hemoglobin between 7-8 in the past. Refuses to get iron infusion. GI consultation will likely need evaluation with EGD colonoscopy which she never had before. Lower extremity edema on diuresis. May switch the amlodipine due to lower extremity edema also on Coreg. Used to be on torsemide and metolazone at home. She is off RIN inhibitor due to renal failure most likely. DVT prophylaxis Lovenox currently on hold due to anemia Subjective Date/time seen: 05/18/24 11:31 Interval history: No overnight events. Feels a bit lightheaded today. Fullness in her both ears. No shortness of breath or chest pain. leg swelling persist. Review of Systems Review of Systems: All systems reviewed & are unremarkable except as noted in HPI and below Exam Narrative: General: Nontoxic-appearing female sitting up in bed in no acute distress. HEENT: Normocephalic, atraumatic. PERRL, EOMI. Sclera anicteric. Neck: Supple. Exam limited due to neck circumference. No obvious JVD. Respiratory: Respirations are nonlabored speaking in full sentences. Lung sounds are diminished at the bases, likely due to body habitus, and are otherwise clear Cardiovascular: Regular rate and rhythm with S1-S2. Gastrointestinal: Abdomen is morbidly obese and nontender with positive bowel sounds. Mild pitting of the lower abdomen. Skin: Warm and dry. Extremities: No cyanosis or clubbing. Legs are large with 2+ pitting edema from the feet to the lower abdomen. No palpable knots or cords. Negative Giuliana sign bilaterally. Neurological: Alert. Cranial nerves 2-12 are grossly intact. No gross focal deficits to casual conversation. Psychiatric: Pleasant and cooperative with normal mood and affect. Judgment and insight intact. Objective Data Vital Signs Vital Signs: Vital Signs - 24 hr 05/17/24 14:00 05/17/24 20:00 05/17/24 22:49 Temperature 96.6 F L 97.4 F L Pulse Rate 74 74 80 Respiratory Rate 18 18 20 Blood Pressure 125/59 L 136/58 L Pulse Oximetry 99 99 98 Oxygen Delivery Room Air Fraction of Inspired Oxygen 21 05/18/24 01:45 05/18/24 06:00 05/18/24 08:50 Temperature 97.5 F L Pulse Rate 72 72 73 Respiratory Rate 20 Blood Pressure 136/63 Pulse Oximetry 97 100 Oxygen Delivery CPAP Fraction of Inspired Oxygen 05/18/24 08:50 Temperature Pulse Rate Respiratory Rate Blood Pressure Pulse Oximetry Oxygen Delivery Room Air Fraction of Inspired Oxygen Intake/Output Intake/Output: Intake & Output 05/15/24 05/17/24 05/17/24 05/18/24 23:59 00:59 23:59 23:59 Intake Total 1020 2430 4016 1176 Output Total 500 1 Balance 520 2430 4016 1175 Meds/Results Medications: Active Medications Generic Name Dose Route Start Last Admin Trade Name Freq PRN Reason Stop Dose Admin Acetaminophen 650 mg 05/13/24 03:36 05/13/24 18:40 Acetaminophen 325 Mg Tablet PO 650 mg Q6H PRN Administration Mild Pain (1-3) or Fever Amlodipine Besylate 10 mg 05/13/24 21:00 05/17/24 20:21 Amlodipine Besylate 10 Mg Tablet PO 10 mg HS NICK Administration Ascorbic Acid 500 mg 05/13/24 09:00 05/18/24 08:51 Ascorbic Acid 500 Mg Tablet PO 500 mg DAILY NICK Administration Aspirin 81 mg 05/13/24 09:00 05/15/24 12:53 Aspirin 81 Mg Chewable Tablet PO Not Given DAILY NICK Carvedilol 25 mg 05/13/24 09:00 05/18/24 08:50 Carvedilol 25 Mg Tablet PO 25 mg Q12HR NICK Administration Dextrose 12.5 gm 05/13/24 03:36 Dextrose 50% 25 Gm/50 Ml Syringe IV PUSH PRN PRN Hypoglycemia Protocol Empagliflozin 25 mg 05/13/24 09:00 05/18/24 08:51 Empagliflozin 25 Mg Tablet PO 25 mg DAILY NICK Administration Enoxaparin Sodium 40 mg 05/13/24 09:00 05/14/24 08:11 Enoxaparin 40 Mg/0.4 Ml Syringe SUB-Q Not Given DAILY [facility] Ferrous Sulfate 325 mg 05/13/24 09:00 05/18/24 08:51 Ferrous Sulfate [address] BY MOUTH 325 mg DAILY NICK Administration Fluticasone Propionate 1 spray 05/18/24 21:00 Fluticasone Propionate 0.05% Na Spr 16 Gm Btl (*Bkc) NASAL Q12HR NICK Folic Acid 1 mg 05/13/24 09:00 05/18/24 08:51 Folic Acid 1 Mg Tablet PO 1 mg DAILY NICK Administration Furosemide 40 mg 05/16/24 09:00 Furosemide Inj 40 Mg/4 Ml Vial IV PUSH DAILY NICK Glucagon 1 mg 05/13/24 03:36 Glucagon For Inj 1 Mg Vial IM PRN PRN Hypoglycemia Protocol Glucose 15 gm 05/13/24 03:36 Glucose Oral Gel 15 Gm Of Glucse In 37.5 Gm Tube PO PRN PRN Hypoglycemia Protocol Dextrose 1,000 mls @ 100 mls/hr 05/13/24 03:36 Dextrose 5% 1,000 Ml IVPB PRN PRN Hypoglycemia Protocol Ceftriaxone Sodium 1 gm in 50 mls @ 100 mls/hr 05/14/24 16:00 05/17/24 16:39 Rocephin 1 Gm/Ns 50 Ml IVPB Infused Q24H NICK Infusion Azithromycin 500 mg in 250 mls @ 250 mls/hr 05/14/24 16:00 05/17/24 17:09 Zithromax IVPB Infused Q24H NICK Infusion Insulin Aspart 4 - 8 units 05/13/24 08:00 05/18/24 08:00 Insulin Aspart (*Bkc) 100 Units/Ml SUB-Q Not Given TIDWM [facility] Protocol Insulin Aspart 2 - 4 units 05/13/24 21:00 05/17/24 21:23 Insulin Aspart (*Bkc) 100 Units/Ml SUB-Q 2 units HS NICK Administration Protocol Insulin Glargine 30 units 05/14/24 21:00 05/17/24 21:22 Insulin Glargine (*Bkc) 100 Units/Ml SUB-Q 30 units HS NICK Administration Pantoprazole Sodium 40 mg 05/14/24 16:05 05/18/24 08:50 Pantoprazole Sodium Iv 40 Mg Vial IV PUSH 40 mg Q12HR NICK Administration Radiology Results: ITS Impressions Chest X-Ray 05/13/24 05:27 Impression: Questionable minimal haziness right upper lobe. Correlate for subtle pneumonia. Venous Doppler Study 05/13/24 09:20 IMPRESSION: 1. No deep venous thrombosis. Pulmonary Perfusion Imaging 05/14/24 14:44 IMPRESSION: 1. Normal perfusion. Chest CT 05/14/24 14:48 IMPRESSION: 1. Patchy groundglass and airspace opacities in the upper lobes, consistent with pneumonia. Upper Quadrant Ultrasound 05/15/24 10:53 IMPRESSION: 1. Normal right upper quadrant ultrasound. Pelvis Ultrasound 05/15/24 10:54 IMPRESSION: 1. Thickened endometrial complex, which may be endometrial hyperplasia or polyp. Renal Ultrasound 05/16/24 12:29 Impression: Unremarkable ultrasound of the kidneys and urinary bladder. Labs Labs: Laboratory Results - last 24 hr 05/17/24 05/17/24 05/17/24 11:54 16:35 20:51 WBC RBC Hgb Hct MCV MCH MCHC RDW Plt Count MPV Immature Gran % (Auto) Neut % (Auto) Lymph % (Auto) [place] % (Auto) Eos % (Auto) Baso % (Auto) Lymph # (Auto) [place] # (Auto) Eos # (Auto) Baso # (Auto) Abs Immat Gran (auto) Absolute Neuts (auto) Absolute Nucleated RBC Nucleated RBC % Sodium Potassium Chloride Carbon Dioxide Anion Gap BUN Creatinine Estim Creat Clear Calc Estimated GFR Glucose POC Capillary Glucose 168 H 177 H 236 H Hemoglobin A1c Calcium Magnesium Total Bilirubin AST ALT Alkaline Phosphatase Total Creatine Kinase Total Protein Albumin 05/18/24 05/18/24 05/18/24 05:25 05:26 08:11 WBC 7.1 RBC 2.56 L Hgb 7.9 L Hct 24.1 L MCV 94.1 MCH 30.9 MCHC 32.8 RDW 13.6 Plt Count 230 MPV 10.5 H Immature Gran % (Auto) 0.4 Neut % (Auto) 63.0 Lymph % (Auto) 19.1 [place] % (Auto) 7.8 Eos % (Auto) 9.1 H Baso % (Auto) 0.6 Lymph # (Auto) 1.35 [place] # (Auto) 0.6 Eos # (Auto) 0.6 H Baso # (Auto) 0.0 Abs Immat Gran (auto) 0.03 Absolute Neuts (auto) 4.5 Absolute Nucleated RBC 0.000 Nucleated RBC % 0.0 Sodium 131 L Potassium 3.8 Chloride 101 Carbon Dioxide 21 L Anion Gap 9 BUN 56 H Creatinine 3.54 H Estim Creat Clear Calc 26 Estimated GFR 14 L Glucose 163 H POC Capillary Glucose 140 H Hemoglobin A1c 6.7 H Calcium 7.6 L Magnesium 2.5 H Total Bilirubin 0.3 AST 21 ALT 18 Alkaline Phosphatase 43 Total Creatine Kinase 111 Total Protein 6.0 L Albumin 2.9 L
[2024-05-18 12:17] LABS: Glucose Point of Care 169 mg/dl (65-105)
--- NOTE | 2024-05-18 13:50 | PCRCNOTE ---
Home O2 eval done, no home O2 needed
[2024-05-18] MEDS: AZITHROMYCIN 250 MG TABLET 500 MG PO (16:40)
[2024-05-18] MEDS: CEFDINIR 300 MG CAPSULE PO (16:40)
--- NOTE | 2024-05-18 16:49 | PM.DS ---
DS: Admitting Diagnosis Discharge Date 05/18/2024 Admitting Diagnosis Shortness of breath DS: Discharge Diagnosis Discharge Diagnosis (1) Volume overload: Code(s): E87.70 - Fluid overload, unspecified Status: Acute (2) Hypertension: Code(s): I10 - Essential (primary) hypertension Status: Acute (3) Chronic kidney disease, stage 4 (severe): Code(s): N18.4 - Chronic kidney disease, stage 4 (severe) Status: Acute (4) Chronic anemia: Code(s): D64.9 - Anemia, unspecified Status: Acute (5) Insulin dependent type 2 diabetes mellitus: Code(s): E11.9 - Type 2 diabetes mellitus without complications; Z79.4 - intermission coordinator (current) use of insulin Status: Acute (6) Obstructive sleep apnea on CPAP: Code(s): G47.33 - Obstructive sleep apnea (adult) (pediatric) Status: Acute (7) Morbid obesity: Code(s): E66.01 - Morbid (severe) obesity due to excess calories Status: Acute DS: Summary Hospital Course Hospital Course: This is a 49-year-old female with history of obstructive sleep apnea on CPAP, hypertension, insulin-dependent diabetes mellitus, chronic kidney disease, and morbid obesity admitted from home for evaluation of shortness of breath. She recently had Covid in march, then possibly RSV- got somewhat better, then 3-4 days ago, started having increased dyspnea and swelling to abd and lower legs. Additionally she reports orthopnea and states that last night when she went to bed she got severely short of breath when trying to lie down and she called 911. 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 When it gets especially bad she will wear compression stockings and take metolazone. She denies history of congestive heart failure (reports normal echocardiogram in July 2023) or venous thromboembolism. In the ED: Vital signs on arrival include a blood pressure of 220/120, pulse 95, respiratory rate 23, SpO2 100% on CPAP. Labs were significant for a WBC count of 10.1, hemoglobin 9.5, BUN 45, creatinine 3.08, glucose 205, proBNP 1520, troponin less than 0.012. EKG showed a sinus rhythm without concerning ST segment changes. Chest x-ray showed questionable minimal haziness right upper lobe correlate for subtle pneumonia. She was given furosemide 40 mg IV and she is being admitted in this setting for further management. Shortness of breath no hypoxia chest x-ray with questionable minimal haziness right upper lobe correlate for subtle pneumonia. Possible CHF exacerbation with lower extremity edema. BNP elevated at 1520. CT chest showing multifocal pneumonia. Started on ceftriaxone and azithromycin. Lung scan came back normal. Continue diuresis however creatinine bumped up in continues to incline diuretics currently on hold. Urinalysis is bland. Renal ultrasound came back negative. Some of the lower extremity swelling is related to lymphedema and/or venous insufficiency. Compression stockings and also suggested lymphedema pump. Creatinine trending down now. Plan to resume torsemide at discharge. Home O2 evaluation was done at the time of discharge and did not require Has underlying obstructive sleep apnea. Echocardiogram 05/13/2024 showed normal systolic function right ventricular not visualized well. Type 2 diabetes on insulin adjust dose as needed kim on CKD stage 4 follows with ice cream scooper. cr slowly increasing. Lasix on hold renal us negative. urine studies reviewed. continue to monitor renal function. Renal consultation. Creatinine trending down now TARIQ on CPAP which was continued during the hospital stay. Anemia iron panel suggestive of iron deficiency she does have vaginal bleed. Pelvic ultrasound with endometrial thickening noted. Need gynecology evaluation. Stool occult blood also came back positive. Her baseline hemoglobin between 7-8 in the past. Refuses to get iron infusion. GI consultation will likely need evaluation with EGD colonoscopy which she never had before. GI plans to do EGD colonoscopy as an outpatient basis. Lower extremity edema on diuresis. May switch the amlodipine due to lower extremity edema also on Coreg. Used to be on torsemide and metolazone at home. She is off RIN inhibitor due to renal failure most likely. DVT prophylaxis Lovenox currently on hold due to anemia Time Spent with Patient Time attestation: Total time spent providing and/or coordinating discharge services: 40 minutes Exam Narrative: General: Nontoxic-appearing female sitting up in bed in no acute distress. HEENT: Normocephalic, atraumatic. PERRL, EOMI. Sclera anicteric. Neck: Supple. Exam limited due to neck circumference. No obvious JVD. Respiratory: Respirations are nonlabored speaking in full sentences. Lung sounds are diminished at the bases, likely due to body habitus, and are otherwise clear Cardiovascular: Regular rate and rhythm with S1-S2. Gastrointestinal: Abdomen is morbidly obese and nontender with positive bowel sounds. Mild pitting of the lower abdomen. Skin: Warm and dry. Extremities: No cyanosis or clubbing. Legs are large with 2+ pitting edema from the feet to the lower abdomen. No palpable knots or cords. Negative Giuliana sign bilaterally. Neurological: Alert. Cranial nerves 2-12 are grossly intact. No gross focal deficits to casual conversation. Psychiatric: Pleasant and cooperative with normal mood and affect. Judgment and insight intact. DS: Data Data Completed and Pending Completed studies during hospitalization: Exam Type: CA echo dop color flow w con Study Info Indications - Edema, HTN, TARIQ Complete two-dimensional, color flow and Doppler transthoracic echocardiogram is performed with contrast to opacify the left ventricle and to improve the deliniation of the left ventricle endocardial borders. Contrast/Agitated Saline Contrast/Ag. Saline: Definity Amount: 2.00 ml Existing IV Access: Yes IV Access Condition: patent with no signs of infiltration Reason for Poor Study: patient body habitus Summary 1. The left ventricle appears to be normal in systolic function. 2. Technically difficult study with poorly visualized images. Left Ventricle The left ventricle appears to be normal in systolic function. Right Ventricle The right ventricle is not well visualized. Left Atria The left atrium is normal size. Right Atria The right atrium is not well visualized. Atrial Septum The atrial septum is not well visualized. Aortic Valve There is no stenosis by echocardiographic Doppler gradients. Pulmonic Valve The pulmonic valve is not visualized. Mitral Valve The mitral valve is grossly normal. There is no mitral regurgitation. Tricuspid Valve The tricuspid valve is grossly normal. There is no tricuspid regurgitation. Pericardium/Pleural Pericardium is normal in appearance with no evidence for significant pericardial effusion. Inferior Vena Cava Normal inferior vena cava with <50% collapse upon inspiration consistent with elevated right atrial pressure, 8 mmHg. Normal inferior vena cava with <50% collapse upon inspiration consistent with elevated right atrial pressure, 8 mmHg. Aorta The aortic root at the level of the sinus of Valsalva measures 3.6 cm in diameter. Labs on day of discharge: Labs from last 24 hours 03/11/25 03/11/25 03/11/25 12:15 08:11 05:26 WBC RBC Hgb Hct MCV MCH MCHC RDW Plt Count MPV Immature Gran % (Auto) Neut % (Auto) Lymph % (Auto) [place] % (Auto) Eos % (Auto) Baso % (Auto) Lymph # (Auto) [place] # (Auto) Eos # (Auto) Baso # (Auto) Abs Immat Gran (auto) Absolute Neuts (auto) Absolute Nucleated RBC Nucleated RBC % Sodium 131 L Potassium 3.8 Chloride 101 Carbon Dioxide 21 L Anion Gap 9 BUN 56 H Creatinine 3.54 H Estim Creat Clear Calc 26 Estimated GFR 14 L Glucose 163 H POC Capillary Glucose 169 H 140 H Hemoglobin A1c 6.7 H Calcium 7.6 L Magnesium 2.5 H Total Bilirubin 0.3 AST 21 ALT 18 Alkaline Phosphatase 43 Total Creatine Kinase 111 Total Protein 6.0 L Albumin 2.9 L 05/18/24 05/17/24 05/17/24 05:25 20:51 16:35 WBC 7.1 RBC 2.56 L Hgb 7.9 L Hct 24.1 L MCV 94.1 MCH 30.9 MCHC 32.8 RDW 13.6 Plt Count 230 MPV 10.5 H Immature Gran % (Auto) 0.4 Neut % (Auto) 63.0 Lymph % (Auto) 19.1 [place] % (Auto) 7.8 Eos % (Auto) 9.1 H Baso % (Auto) 0.6 Lymph # (Auto) 1.35 [place] # (Auto) 0.6 Eos # (Auto) 0.6 H Baso # (Auto) 0.0 Abs Immat Gran (auto) 0.03 Absolute Neuts (auto) 4.5 Absolute Nucleated RBC 0.000 Nucleated RBC % 0.0 Sodium Potassium Chloride Carbon Dioxide Anion Gap BUN Creatinine Estim Creat Clear Calc Estimated GFR Glucose POC Capillary Glucose 236 H 177 H Hemoglobin A1c Calcium Magnesium Total Bilirubin AST ALT Alkaline Phosphatase Total Creatine Kinase Total Protein Albumin Imaging Radiologist's impression: ITS Impressions Chest X-Ray 05/13/24 05:27 Impression: Questionable minimal haziness right upper lobe. Correlate for subtle pneumonia. Venous Doppler Study 05/13/24 09:20 IMPRESSION: 1. No deep venous thrombosis. Pulmonary Perfusion Imaging 05/14/24 14:44 IMPRESSION: 1. Normal perfusion. Chest CT 05/14/24 14:48 IMPRESSION: 1. Patchy groundglass and airspace opacities in the upper lobes, consistent with pneumonia. Upper Quadrant Ultrasound 05/15/24 10:53 IMPRESSION: 1. Normal right upper quadrant ultrasound. Pelvis Ultrasound 05/15/24 10:54 IMPRESSION: 1. Thickened endometrial complex, which may be endometrial hyperplasia or polyp. Renal Ultrasound 05/16/24 12:29 Impression: Unremarkable ultrasound of the kidneys and urinary bladder. Discharge Plan Discharge Attending physician on discharge: Franki Carbajal Consulting providers: Marcello William Discharging Clinician: Franki Carbajal Anticipated Discharge Date/Time: 05/18/24 16:51 Patient Disposition: Home, Self-Care Activity: as tolerated Diet: heart healthy, diabetic and renal Discharge Instructions: Accu-Cheks AC and HS Follow-up with a ice cream scooper as previously planned Follow-up with director and professor to evaluate for your vaginal bleed Patient Instructions: Antibiotic Form Patient Language: Hungarian Stand Alone Forms: General Discharge Information Follow-up/Referrals: PHYSICIAN NOT ON STAFF,NONSTAFF [Primary Care Provider] - 1 Week Hernan Mcguire MD [Physician] - 2 Weeks Discharge Medications: New fluticasone propionate 50 mcg/actuation Lilly,Suspension 1 spray intranasal Q12HR Qty: 16 0RF cefdinir 300 mg Capsule 300 mg PO DAILY@1400 Qty: 3 0RF Continued ascorbic acid (vitamin C) [Fruit C-500] 500 mg tablet,chewable 500 mg PO DAILY ferrous sulfate 325 mg (65 mg iron) tablet 325 mg PO DAILY aspirin 81 mg tablet,chewable 1 tablet PO DAILY carvedilol 25 mg tablet 25 mg PO Q12H amlodipine 10 mg tablet 10 mg PO HS folic acid 1 mg tablet 1 mg PO DAILY Jardiance 25 mg tablet 25 mg PO DAILY ergocalciferol (vitamin D2) [Vitamin D2] 1,250 mcg (50,000 unit) capsule 1,250 mcg PO WEEKLY Rx Instructions: friday insulin lispro 100 unit/mL insulin pen 15 unit SUBCUT AC torsemide 20 mg tablet 20 mg PO DAILY Qty: 30 0RF Changed insulin glargine-yfgn 100 unit/mL solution 35 unit SUBCUT QHS Qty: 30 0RF Discontinued torsemide 10 mg tablet 10 mg PO DAILY metolazone 2.5 mg tablet 2.5 mg PO DAILY PRN (Reason: edema) Rx Instructions: may take 2 if needed Other Ambulatory Orders: Basic Metabolic Panel (Routine) Timeframe: 1 Week Location: Determined by Patient Ordered By: Franki Carbajal Complete Blood Count with Diff (Routine) Timeframe: 1 Week Location: Determined by Patient Ordered By: Franki Carbajal Date of admission: 05/15/24 14:17 Primary Care Provider: PHYSICIAN NOT ON STAFF,NONSTAFF Admitting Provider: Dennis Joseph Attending physician on admission: Dennis Joseph Condition: Stable
== END 2024-05-18 17:55 | disposition home or self-care (01) | DRG 194 ==
LOC: ANHED 03:34 → ANH3MED 04:03
PROVIDERS: Internal Medicine Nephrology; Nurse Practitioner; Physician Assistant; Admitting Provider Internal Medicine; Emergency Provider Emergency Medicine; Visit Provider Internal Medicine
DX: J18.9 Pneumonia, unspecified organism (principal); I13.0 Hypertensive heart and chronic kidney disease with heart failure and stage 1 through stage 4 chronic kidney disease, or unspecified chronic kidney disease; N17.9 Acute kidney failure, unspecified; N18.4 Chronic kidney disease, stage 4 (severe); Z68.43 Body mass index [BMI] 50.0-59.9, adult; I50.9 Heart failure, unspecified; E87.70 Fluid overload, unspecified; I89.0 Lymphedema, not elsewhere classified; I87.2 Venous insufficiency (chronic) (peripheral); E11.22 Type 2 diabetes mellitus with diabetic chronic kidney disease; G47.33 Obstructive sleep apnea (adult) (pediatric); E66.01 Morbid (severe) obesity due to excess calories; D50.9 Iron deficiency anemia, unspecified; F41.9 Anxiety disorder, unspecified; N92.0 Excessive and frequent menstruation with regular cycle; R19.5 Other fecal abnormalities; Z79.4 Long term (current) use of insulin; Z86.16 Personal history of COVID-19
CPT/HCPCS: 36415; 36600; 71045; 71250; 76705; 76775; 76856; 78582; 80048; 80053; 81001; 81050; 82274; 82550; 82570; 82607; 82728; 82746; 82805; 82948; 83036; 83540; 83550; 83605; 83735; 83880; 84156; 84300; 84484; 84540; 85018; 85025; 85027; 85046; 85610; 85730; 85999; 87637; 93005; 93970; 96365; 96367; 96372; 96374; 96375; 96376; 99285; A9270; A9540; A9558; C8929; G0378; J0456; J0696; J1650; J1815; J1940; J2470; Q9957

== ENCOUNTER 2024-06-08 17:35 | Outpatient (CLI) | payer OTHER, SELFPAY ==
--- OUTSIDE RECORDS SUMMARY | 2024-06-08 17:43 | XMS_ITS | Clinical Summary ---
Author Organization [facility] [employer] [facility] [employer] [facility] Address [address] [address] Phone Care Team Providers Care Brain Surgeon Name Role Phone Matias Warren MD Primary Care Provider [phone] Allergies Active Allergy Reactions Criticality Noted Date [...] time each day Active ergocalciferol 1.25 MG (67247 UT) capsule Take 50,000 Units by mouth [...] 8.6(A) 8.7 - 10.7 mg/dL eGFR Non-Afr [place] 25(L) Hemoglobin A1C 8.5(A) 4.0 - 6.0 Glucose, UA 4+ mg/dL Bilirubin, UA Negative Ketones, UA Negative Urine Specific [place] 1.015 Blood, UA 3+ Randy/ul pH, UA [...] Recently Relevant to Health Maintenance Insurance MEDICARE [facility] Care Teams Brain Surgeon Relationship Specialty Start Date End Date Matias Warren MD [address] [place], [place] [id number] PCP - General Internal Medicine 07/24/23
--- OUTSIDE RECORDS SUMMARY | 2024-06-08 17:43 | XMS_ITS | Clinical Summary ---
Author Organization [facility] Address [address] [place] [address] Phone Care Team Providers Care Sales Hunter Name Role Phone ИВАН LILLY MD Primary Care Provider [phone] MAXX Melgar, TOM Acosta [phone] Reason for Visit and Chief Complaint [Patient Encounter] Problems Includes: Problems addressed during this encounter and other active Problems All Visits Onset Date Resolved Date Provider Condition S tatus Diabetes Mellitus Type 2 07/14/2023 TOM LILLY M.D. Active Last Documented On 4 4:48PM ; [facility] Chronic Kidney Disease Stage 2 Due To Type 2 Diabetes Mellitus 06/30/2023 LAURA JOHN B C Active Last Documented On 4 1:29PM ; [facility] Hyperlipidemia Due To Type 2 Diabetes Mellitus 06/30/2023 LAURA FONTENOT RN AVA BC Activ e Last Documented On 4 1:31PM ; [facility] Note: elevated crp Venous Insufficiency 06/30/2023 LAURA MOSER Active Last Documented On 4 1:30PM ; [facility] Iron Deficiency Anemia 02/11/2022 TOM INMAN M.D. Active Last Documented On 2 5:00PM ; [facility] Nonorganic Sleep Apnea Adult 05/21/2021 TOM LILLY M.D. Active Last Documented On 2 5:37PM ; [facility] Generalized Anxiety Disorder 02/05/2021 SCOOTER L MAURA DO Active Last Documented On 1 9:22AM ; [facility] Obesity Morbid 02/05/2021 SCOOTER Meagan SHAVERMAURA DO Ac tive Last Documented On 1 9:22AM ; [facility] Vitamin D Deficiency 05/24/2020 ARLEY HEATH MD Active Last Documented On 1 4:27PM ; [facility] Essential Hypertension 07/17/2015 CANDIS MANRIQUE MD Active Last Documented On 6 5:39PM ; [facility] Plan of Treatment Care Programs CHRONIC CARE MANAGMENT Last Documented On 1 11:07AM ; [facility] Assessments Includes: Assessments from this encounter No Assessments Recorded Medical Equipment - Implanted Devices Includes: Current Devices No Medical Equipment Recorded Medications Includes: Medications discussed during this encounter and other current Medications Current Medications (continue as prescribed) Diflucan 150 MG Oral Tablet 08/14/2023 Provider: TOM LILLY M.D. Diagnosis: One tablet daily Last Documented On 08/14/2023 11:36AM By ИВАН LILLY MD ; [facility] Sodium Bicarbonate 650 MG Oral Tablet 08/13/2023 Pro vider: Diagnosis: Last Documented On 08/13/2023 11:26AM By Marques MAGDALENO ; [facility] diazePAM 10 MG Oral Tablet 08/11/2023 Provider: TOM LILLY M.D. Diagnosis: Generalized anxi ety disorder TAKE 1 TABLET BY MOUTH THREE TIMES DAILY Last Documented On 08/11/2023 8:59AM By ИВАН LILLY MD ; [facility] amLODIPine Besylate 10 MG Oral Tablet 08/10/2023 Provider: TOM LILLY M.D. Diagnosis: Essential (prima ry) hypertension TAKE 1 TABLET BY MOUTH EVERY DAY Last Documented On 08/10/2023 9:13PM By ИВАН LILLY MD ; [facility] Jardiance 25 MG Oral Tablet 08/10/2023 Provider: TOM LILLY M.D. Diagnosis: Type 2 diabetes mellitus with hyperglycemia One tablet daily Last Documented On 08/10/2023 9:13PM By ИВАН LILLY MD ; [facility] Torsemide 10 MG Oral Tablet 08/09/2023 Provider: VIRGILIO SAENZ MD Diagnosis: Last Documented On 08/13/2023 11:26AM By Marques MAGDALENO ; [facility] metOLazone 2.5 MG Oral Tablet 08/08/2023 Provider: HARPER FISHER MD Diagnosis: Last Documented On 08/13/2023 11:26AM By Maruqes MAGDALENO ; [facility] BD Pen Needle Mini U/F 31G X 5 MM Miscellaneous 08/07/2023 Provider: TOM Diaz Diagnosis: Type 2 diabetes mellitus without complications as directed Last Documented On 08/07/2023 11:48AM By ИВАН LILLY MD ; [facility] Basaglar KwikPen 100 UNIT/ML Subcutaneous Solution Pen-injector 07/31/2023 Provider: TOM Ma Diagnosis: 40 u at night Last Documented On 4 8:36AM By TRINH TEJADA ; [facility] FeroSul 325 (65 Fe) MG Oral Tablet 07/31/2023 Provid er: Diagnosis: Last Documented On 4 8:36AM By TRINH TEJADA ; [facility] HumaLOG KwikPen 100 UNIT/ML Subcutaneous Solution Pen-injector 07/28/2023 Provider: TOM Ma Diagnosis: 14 u with meals Last Documented On 4 8:36AM By TRINH TEJADA ; [facility] Folic Acid 1 MG Oral Tablet 05/19/2023 Provider: TOM LILLY M.D. Diagnosis: Deficiency of ot her specified B group vitamins One tablet daily Last Documented On 4 8:36AM By TRINH TEJADA ; [facility] Dexcom G6 Transmitter Miscellaneous 03/03/2023 Provider: TOM LILLY M.D. Diagnosis: Type 2 diabetes mellitus with hyperglycemia USE DIRECTED TO CHECK BLOOD SUGAR Last Documented On 4 8:36AM By TRINH TEJADA ; [facility] Veltassa 8.4 GM Oral Packet 12/10/2022 Provider: Diagnosis: once daily Last Documented On 4 8:36AM By TRINH TEJADA ; [facility] Aspirin Adult Low Dose 81 MG Oral Tablet Delayed Relea se 12/10/2022 Provider: Diagnosis: Last Documented On 4 8:36AM By TRINH TEJADA ; [facility] Global Ease Inject Pen Needl es 31G X 5 MM Miscellaneous 11/08/2022 Provider: TONY [place] Diagnosis: DIRECTED TEST THREE TIMES DAILY Last Documented On 4 8:36AM By TRINH TEJADA ; [facility] Vitamin D3 125 MCG (5000 UT) Oral Capsule 10/09/2022 Provider: TOM LILLY M.D. Diagnosis: Vitamin D defici ency, unspecified One tablet daily Last Documented On 4 8:36AM By TRINH TEJADA ; [facility] Vitamin B12 1000 MCG Oral Tablet 10/09/2022 Provider: TOM LILLY M.D. Diagnosis: Deficiency of ot her specified B group vitamins One tablet daily Last Documented On 4 8:36AM By TRINH TEJADA ; [facility] Medications Administered Includes: Administered Medications from this [...] tive Last Documented On 4 11:14AM ; [facility] Floxin Otic Allergy 07/26/2014 Active Last Documented On 4 11:14AM ; [facility] Farxiga Intolerance yeast vaginitis 12/24/2021 A ctive Last Documented On 4 11:14AM ; [facility] Demerol Allergy 07/26/2014 Active Last Documented On 4 11:14AM ; [facility] Cipro Allergy 07/26/2014 Active Last Documented On 4 11:14AM ; [facility] cephalexin Allergy 07/26/2014 Active Last Documented On 4 11:14AM ; [facility] Encounters Encounter Provider Location Date Check-In Time Check-Out Time Diagnosis [Patient Encounter] TOM LILLY M.D. 04/15/2024 4:37PM 11:59PM Insurance Includes: Active Insurance Policies Plan Name Member ID Group # Subscriber Relationship Effect reynaldo Dates 1 - [facility] [id number] FAIZAN Webster 03/10/2023 - Unknown 2 - MEDICARE PART A CLAIMS/NGS [id number] FAIZAN Webster Clinical Notes Includes: Clinical Notes from this encounter No Clinical Notes Recorded
--- OUTSIDE RECORDS SUMMARY | 2024-06-08 17:44 | XMS_ITS | Clinical Summary ---
Author Organization [facility] Address [address] [place] [id number] Care Team Providers Care Chemical Dependency Attendant Name Role Phone Matias Warren MD Primary Care Provider [phone] Allergies Active Allergy Reactions Criticality Noted Date Comments Cephalexin Hives Medium 07/26/2014 Ciprofloxacin Dapagliflozin Propanediol Other (See comments) Low 12/24/2021 Fluoxetine Meperidine Morphine Medications amLODIPine (NORVASC) 10 mg tablet take 1 tablet by oral route every day 0 0 6 Active insulin syringe-needle U-100 (INSULIN SYRINGE) 1/2 mL 30 gauge x /16 syringe use with insulin x1/day 1 Box [...] drink = 0.6 oz pur e alcohol) [facility] Utilities Answer Date Recorded In the [...] often do you attend chur ch or cheondoism services? Never 07/23/2023 Do you belong to any clubs o r organizations such as amish groups, unions, fraternal or athletic groups, or [...] place to sleep or slept in a fdc (including now)? 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[employer] Gender Identity Not on file Sexual Orientation [...] Insurance [employer] MEDICARE [employer] MEDICARE [facility] Address: [address] [address] [place] [address] [employer] [facility] MEDICARE ADVANTAGE Advance Directives For more information, please contact: [phone] * Full Code (Latest Code Status on File) Date Activated Date Inactivated Comments 07/23/2023 3:39 PM 07/25/2023 6:34 PM Care Teams Chemical Dependency Attendant Relationship Specialty Start Date End Date Matias Warren MD [address] [place] [id number] PCP - General Internal Medicine 07/20/23
--- OUTSIDE RECORDS SUMMARY | 2024-06-08 17:44 | XMS_ITS | Clinical Summary ---
Author Organization [facility] Address [address] [place] [address] Phone Care Team Providers Care Adjunct Business Instructor Name Role Phone ИВАН LILLY MD Primary Care Provider [phone] MAXX Melgar, TOM Acosta [phone] Reason for Visit and Chief Complaint visit [...] Active Last Documented On 4 4:48PM ; [facility] Chronic Kidney Disease Stage 2 Due To Type 2 Diabetes Mellitus 06/30/2023 LAURA JOHN B C Active Last Documented On 4 1:29PM ; [facility] Hyperlipidemia Due To Type 2 Diabetes Mellitus 06/30/2023 LAURA JOHN BC Activ e Last Documented On 4 1:31PM ; [facility] Note: elevated crp Kidney Atrophy Left 06/30/2023 TOM LILLY M.D. Inactive Last Documented On 4 1:28PM ; [facility] Venous Insufficiency 06/30/2023 LAURA MOSER Active Last Documented On 4 1:30PM ; [facility] Iron Deficiency Anemia 02/11/2022 TOM S DIZ ON M.D. Active Last Documented On 2 5:00PM ; [facility] Nonorganic Sleep Apnea Adult 05/21/2021 TOM LILLY M.D. Active Last Documented On 2 5:37PM ; [facility] Generalized Anxiety Disorder 02/05/2021 SCOOTER Meagan MAURA DO Active Last Documented On 1 9:22AM ; [facility] Obesity Morbid 02/05/2021 SCOOTER L MAURA DO Ac tive Last Documented On 1 9:22AM ; [facility] Iron Deficiency Anemia 05/24/2020 02/05/2021 TOM LUNA ON M.D. Resolved Last Documented On 1 9:17AM ; [facility] Vitamin D Deficiency 05/24/2020 ARLEY HEATH MD Active Last Documented On 1 4:27PM ; [facility] Essential Hypertension 07/17/2015 CANDIS MANRIQUE MD Active Last Documented On 6 5:39PM ; [facility] Plan of Treatment - Return to the clinic if condition worsens or new symptoms arise - Last Documented On 08/13/2023 1:34PM ; [facility] - Continue current medication - Last Documented On 08/13/2023 1:34PM ; [facility] - Modify drug dosage Inc Jardiance to 25 mg a day - Last Documented On 08/13/2023 1:34PM ; [facility] Inc Basaglar to 30 u 2 x a day - Patient to call if problem develops - Last Documented On 08/13/2023 1:34PM ; [facility] Care Programs CHRONIC CARE MANAGMENT Last Documented On 1 11:07AM ; [facility] Assessments Includes: Assessments from this encounter Findings - I10 - Essential (primary) hypertension - Last Documented On 08/13/2023 1:34PM ; [facility] - I10 - Essential (primary) hypertension - Last Documented On 08/13/2023 1:34PM ; [facility] - I87.2 - Venous insufficiency (chronic) (peripheral) - Last Documented On 08/13/2023 1:34PM ; [facility] - I87.2 - Venous insufficiency (chronic) (peripheral) - Last Documented On 08/13/2023 1:34PM ; [facility] - G47.30 - Sleep apnea, unspecified - Last Documented On 08/13/2023 1:34PM ; 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 - N18.2 - Chronic kidney disease, stage 2 (mild) - Last Documented On 08/13/2023 1:34PM ; [facility] - N18.2 - Chronic kidney disease, stage 2 (mild) - Last Documented On 08/13/2023 1:34PM ; [facility] - E78.5 - Hyperlipidemia, unspecified - Last Documented On 08/13/2023 1:34PM ; [facility] - E78.5 - Hyperlipidemia, unspecified - Last Documented On 08/13/2023 1:34PM ; [facility] - E55.9 - Vitamin D deficiency, unspecified - Last Documented On 08/13/2023 1:34PM ; [facility] - E55.9 - Vitamin D deficiency, unspecified - Last Documented On 08/13/2023 1:34PM ; [facility] - E66.8 - Other obesity - Last Documented On 08/13/2023 1:34PM ; [facility] - E66.8 - Other obesity - Last Documented On 08/13/2023 1:34PM ; [facility] - E11.9 - Type 2 diabetes mellitus without complications - Last Documented On 08/13/2023 1:34PM ; [facility] - E11.9 - Type 2 diabetes mellitus without complications - Last Documented On 08/13/2023 1:34PM ; [facility] - F41.1 - Generalized anxiety disorder - Last Documented On 08/13/2023 1:34PM ; [facility] - F41.1 - Generalized anxiety disorder - Last Documented On 08/13/2023 1:34PM ; [facility] - D50.9 - Iron deficiency anemia, unspecified - Last Documented On 08/13/2023 1:34PM ; [facility] - D50.9 - Iron deficiency anemia, unspecified - Last Documented On 08/13/2023 1:34PM ; [facility] Medical Equipment - Implanted Devices Includes: Current Devices No Medical Equipment Recorded Medications Includes: Medications discussed during this encounter and other current Medications Discontinued / Stopped on this date on 07/31/2023 Sodium Bicarbonate 650 MG Oral Tablet Pro vider: Diagnosis: Last Documented On 08/13/2023 1:29PM By ИВАН LILLY MD ; [facility] Amoxicillin-Pot Clavulanate 875-125 MG Oral Tablet Provider: NONI OSORIO OYSTER WASHER-B C Diagnosis: Last Documented On 08/13/2023 11:21AM By ИВАН LILLY MD ; [facility] Torsemide 5 MG Oral Tablet Provider: Meagan LILLY M.D. Diagnosis: Last Documented On 08/13/2023 1:29PM By ИВАН LILLY MD ; [facility] Current Medications (continue as prescribed) Diflucan 150 MG Oral Tablet 08/14/2023 Provider: TOM LILLY M.D. Diagnosis: One tablet daily Last Documented On 08/14/2023 11:36AM By ИВАН LILLY MD ; [facility] Sodium Bicarbonate 650 MG Oral Tablet 08/13/2023 Pro vider: Diagnosis: Last Documented On 08/13/2023 11:26AM By Marques MAGDALENO ; [facility] diazePAM 10 MG Oral Tablet 08/11/2023 Provider: TOM LILLY M.D. Diagnosis: Generalized anxi ety disorder TAKE 1 TABLET BY MOUTH THREE TIMES DAILY Last Documented On 08/11/2023 8:59AM By ИВАН LILLY MD ; [facility] amLODIPine Besylate 10 MG Oral Tablet 08/10/2023 Provider: TOM LILLY M.D. Diagnosis: Essential (prima ry) hypertension TAKE 1 TABLET BY MOUTH EVERY DAY Last Documented On 08/10/2023 9:13PM By ИВАН LILLY MD ; [facility] Jardiance 25 MG Oral Tablet 08/10/2023 Provider: TOM LILLY M.D. Diagnosis: Type 2 diabetes mellitus with hyperglycemia One tablet daily Last Documented On 08/10/2023 9:13PM By ИВАН LILLY MD ; [facility] Torsemide 10 MG Oral Tablet 08/09/2023 Provider: VIRGILIO SAENZ MD Diagnosis: Last Documented On 08/13/2023 11:26AM By Marques MAGDALENO ; [facility] metOLazone 2.5 MG Oral Tablet 08/08/2023 Provider: HARPER RIVERA MD Diagnosis: Last Documented On 08/13/2023 11:26AM By Marques MAGDALENO ; [facility] BD Pen Needle Mini U/F 31G X 5 MM Miscellaneous 08/07/2023 Provider: TOM Diaz Diagnosis: Type 2 diabetes mellitus without complications as directed Last Documented On 08/07/2023 11:48AM By ИВАН LILLY MD ; [facility] Basaglar KwikPen 100 UNIT/ML Subcutaneous Solution Pen-injector 07/31/2023 Provider: TOM Ma Diagnosis: 40 u at night Last Documented On 4 8:36AM By TRINH TEJADA ; [facility] FeroSul 325 (65 Fe) MG Oral Tablet 07/31/2023 Provid er: Diagnosis: Last Documented On 4 8:36AM By TRINH TEJADA ; [facility] HumaLOG KwikPen 100 UNIT/ML Subcutaneous Solution Pen-injector 07/28/2023 Provider: TOM Ma Diagnosis: 14 u with meals Last Documented On 4 8:36AM By TRINH TEJADA ; [facility] Folic Acid 1 MG Oral Tablet 05/19/2023 Provider: TOM LILLY M.D. Diagnosis: Deficiency of ot her specified B group vitamins One tablet daily Last Documented On 4 8:36AM By TRINH TEJADA ; [facility] Dexcom G6 Transmitter Miscellaneous 03/03/2023 Provider: TOM LILLY M.D. Diagnosis: Type 2 diabetes mellitus with hyperglycemia USE DIRECTED TO CHECK BLOOD SUGAR Last Documented On 4 8:36AM By TRINH TEJADA ; [facility] Veltassa 8.4 GM Oral Packet 12/10/2022 Provider: Diagnosis: once daily Last Documented On 4 8:36AM By TRINH TEJADA ; [facility] Aspirin Adult Low Dose 81 MG Oral Tablet Delayed Relea se 12/10/2022 Provider: Diagnosis: Last Documented On 4 8:36AM By TRINH TEJADA ; [facility] Global Ease Inject Pen Needl es 31G X 5 MM Miscellaneous 11/08/2022 Provider: TONY [place] Diagnosis: DIRECTED TEST THREE TIMES DAILY Last Documented On 4 8:36AM By TRINH TEJADA ; [facility] Vitamin D3 125 MCG (5000 UT) Oral Capsule 10/09/2022 Provider: TOM LILLY M.D. Diagnosis: Vitamin D defici ency, unspecified One tablet daily Last Documented On 4 8:36AM By TRINH TEJADA ; [facility] Vitamin B12 1000 MCG Oral Tablet 10/09/2022 Provider: TOM LILLY M.D. Diagnosis: Deficiency of ot her specified B group vitamins One tablet daily Last Documented On 4 8:36AM By TRINH TEJADA ; [facility] Past Medications on file Carvedilol 25 MG Oral Tablet 07/01/2023 - 09/29/2023 Provider: TOM LILLY M.D. Diagnosis: Essential (prima ry) hypertension TAKE 1 TABLET BY MOUTH TWICE DAILY Last Documented On 4 8:36AM By TRINH TEJADA ; [facility] Dexcom G6 Sensor Miscellaneous 08/07/2022 - 02/03/2023 Provider: TOM LILLY M.D. Diagnosis: Type 2 diabetes mellitus with hyperglycemia change every 10 days as directedDX E11.65 Last Documented On 3 1:21PM By NIKOLAI MAGDALENO ; [facility] Medications Administered Includes: Administered Medications [...] Last Documented: On 08/13/2023 11:23A M ; [facility] Results Includes: Results discussed during this encounter CBC WITH DIFF [facility] La boratory Ordered by TRINH FLORES RN-FPA, OYSTER WASHER-BC on 07/31/2023 [address] [place], [address] Collected: 07/31/2023 Report ed: 07/31/2023 12:57 tel: Last Documented On 4 9:10AM ; [facility] Reviewed by TRINH UNGER-JORDYN, OYSTER WASHER-BC on 08/06/2023; All test results are final unless otherwise noted. ALC 1.5 None Last Documented On 4 10:18PM ; [facility] Note: Responsible Observer: ([place] ANC 5.8 None Last Documented On 4 10:18PM ; [facility] Note: Responsible Observer: [place] BASO# 0.05 th/uL (0.00 - 0.20) None Last Documented On 4 10:18PM ; [facility] Note: Responsible Observer: [place] BASO% 0.6 % (0.0 - 2.0) None Last Documented On 4 10:18PM ; [facility] Note: Responsible Observer: [place] CBC WITH DIFF See Note None Last Documented On 4 10:18PM ; [facility] Note: CBC (COMPLETE BLOOD COUNT)Respons[place] ble Observer: [place] DIFF (Y/N) NO None Last Documented On 4 10:18PM ; [facility] Note: Responsible Observer: [place] EOS# 0.54 th/uL (0.00 - 0.45) H (High) Last Documented On 4 10:18PM ; [facility] Note: Responsible Observer: [place] EOS% 6.3 % (0.0 - 9.0) None Last Documented On 4 10:18PM ; [facility] Note: Responsible Observer: [place] HCT 27.3 % (38.0 - 47.0) L (Low) Last Documented On 4 10:18PM ; [facility] Note: Responsible Observer: [place] HGB 9.0 g/dL (12.0 - 16.0) L (Low) Last Documented On 4 10:18PM ; [facility] Note: Responsible Observer: [place] IG# 0.06 th/ul (0.00 - 0.10) None Last Documented On 4 10:18PM ; [facility] Note: Responsible Observer: [place] IG% 0.7 % (0.0 - 0.5) H (High) Last Documented On 4 10:18PM ; [facility] Note: Responsible Observer: [place] LYMPH# 1.49 th/uL (1.00 - 4.80) None Last Documented On 4 10:18PM ; [facility] Note: Responsible Observer: [place] LYMPH% 17.4 % (14.0 - 45.0) None Last Documented On 4 10:18PM ; [facility] Note: Responsible Observer: [place] MCH 28.1 pg (25.0 - 35.0) None Last Documented On 4 10:18PM ; [facility] Note: Responsible Observer: [place] MCHC 33.0 g/dL (31.0 - 36.0) None Last Documented On 4 10:18PM ; [facility] Note: Responsible Observer: [place] MCV 85.3 fl (80.0 - 100) None Last Documented On 4 10:18PM ; [facility] Note: Responsible Observer: [place] MONO# 0.53 th/uL (0.00 - 0.80) None Last Documented On 4 10:18PM ; [facility] Note: Responsible Observer: [place] MONO% 6.2 % (1.0 - 10.0) None Last Documented On 4 10:18PM ; [facility] Note: Responsible Observer: [place] MPV 10.3 fl (6.0 - 11.0) None Last Documented On 4 10:18PM ; [facility] Note: Responsible Observer: [place] NEUT# 5.87 th/uL None Last Documented On 4 10:18PM ; [facility] Note: Responsible Observer: [place] NEUT% 68.8 % (45.0 - 76.0) None Last Documented On 4 10:18PM ; [facility] Note: Responsible Observer: [place] NRBC% 0.0 % (0.0 - 0.0) None Last Documented On 4 10:18PM ; [facility] Note: Responsible Observer: [place] PLT 332 th/uL (150 - 400) None Last Documented On 4 10:18PM ; [facility] Note: Responsible Observer: [place] RBC 3.20 mil/uL (4.50 - 5.90) L (Low) Last Documented On 4 10:18PM ; [facility] Note: Responsible Observer: [place] RDW 15.1 % (11.0 - 16.0) None Last Documented On 4 10:18PM ; [facility] Note: Responsible Observer: [place] WBC 8.5 th/uL (4.5 - 11.0) None Last Documented On 4 10:18PM ; [facility] Note: Responsible Observer: [place] .BB CROSSMATCH 1 UNIT (LAB ONLY) [facility] Laboratory Ordered by BALDO RG PA-C on 07/16/[address] [place] [address], [place], [address] Collected: 07/19/2023 Report ed: 07/19/2023 15:30 tel: Last Documented On 4 1:29PM ; [facility] Reviewed by TOM LILLY M.D. on 08/13/2023; All test results are final unless otherwise noted. .BB CROSSMATCH 1 UNIT (LAB ONLY) See Note None Last Documented On 08/05/2023 10:16PM ; [facility] Note: [id number] UNDoREQUEST FOR BLOOD OR BLOOD COMPONENTUNDx Patient's Arm Band Number _[id number] 07/19/23.TER.A PositiveResponsible Observer: (MEGAN) Antibody Screen None Detected None Last Documented On 08/05/2023 10:16PM ; [facility] Note: Antibody ID: Responsible Observer: (MEGAN) Crossmatch Compatible None Last Documented On 08/05/2023 10:16PM ; [facility] Note: Donor Unit Number _[id number] 07/19/23.TER. CMV NEGATIVE? _N 07/19/23.TER. IRRADIATED? _N 07/19/23.TER. TIME DATE BLOOD BANK SIGNATURE PICKED UP FROM LAB CHECKED WITH ADMINISTERED BY IDENTIFICATION NUMBER BLOOD TYPE AND Rh OF RECIPIENT AND UNIT OF BLOOD AGREE YES --------- NO ---------Responsible Observer: GARRICK) Donor's Type A Positive None Last Documented On 08/05/2023 10:16PM ; [facility] Note: Donor Expiration Date _08/19/2023 [...] 08/13/2023 Last Documented On 4 1:34PM ; [facility] DME in home: wheelchair 08/13/2023 Last Documented On 4 1:34PM ; [facility] Soc Hx: works as [employer] on disability. . No alcohol, drugs, tobacco, vaping. Diet: regular. Exercise: none 06/30/2023 Last Documented On 4 11:14AM ; [facility] A high-sugar diet 06/30/2023 Last Documented On 4 11:14AM ; [facility] Amount of sleep 06/30/2023 Last Documented On 4 11:14AM ; [facility] Current nonsmoker 06/30/2023 Last Documented On 4 11:14AM ; [facility] Diet needs improvement 06/30/2023 Last Documented On 4 11:14AM ; [facility] Eats breakfast regularly 06/30/2023 Last Documented On 4 11:14AM ; [facility] Exercising regularly 06/30/2023 Last Documented On 4 11:14AM ; [facility] Former smoker 06/30/2023 Last Documented On 4 11:14AM ; [facility] Frequency of meals 06/30/2023 Last Documented On 4 11:14AM ; [facility] Frequent high carbohydrate meals 024 Last Documented On 4 11:14AM ; [facility] Good exercise habits 06/30/2023 Last Documented On 4 11:14AM ; [facility] Lives with spouse 06/30/2023 Last Documented On 4 11:14AM ; [facility] Marital history 06/30/2023 Last Documented On 4 11:14AM ; [facility] Missing meals 06/30/2023 Last Documented On 4 11:14AM ; [facility] No caffeine use 06/30/2023 Last Documented On 4 11:14AM ; [facility] No consumption of alcohol 06/30/2023 Last Documented On 4 11:14AM ; [facility] No tobacco use 06/30/2023 Last Documented On 4 11:14AM ; [facility] No travel 06/30/2023 Last Documented On 4 11:14AM ; [facility] Non-smoker 06/30/2023 Last Documented On 4 11:14AM ; [facility] Not a current smoker 06/30/2023 Last Documented On 4 11:14AM ; [facility] Not using drugs 06/30/2023 Last Documented On 4 11:14AM ; [facility] Nutritional quality of diet 06/30/2023 Last Documented On 4 11:14AM ; [facility] 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 06/29 Last Documented On 4 11:14AM ; [facility] Sexually active 06/30/2023 Last Documented On 4 11:14AM ; [facility] Stopped smoking years ago 1996 4 Last Documented On 4 11:14AM ; [facility] Work history 06/30/2023 Last Documented On 4 11:14AM ; [facility] 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 Not using alcohol 02/22/2020 Last Documented On 4 11:14AM ; [facility] Smoking Status Unknown Procedures and Surgical History Includes: Procedures from this encounter Procedures Code Diagnosis Performing Provider Service L ocation Service Date use of tobacco assessment performed 1000F Last Documented On 4 11:23AM ; [facility] standardized depression screening: negative for symptoms 3351F Last Documented On 4 11:14AM ; [facility] review of medications documented 1160F Last Documented On 4 11:23AM ; [facility] assessment of suicide risk performed Last Documented On 4 11:14AM ; [facility] screening for adult depression: impressi on and score three Last Documented On 4 11:14AM ; [facility] Surgical History Last Updated Prior surgery Csectionx3 05/21/2021 Last Documented On 4 11:14AM ; [facility] History of section 02/02/2021 Last Documented On 4 11:14AM ; [facility] History of tubal ligation 2002 5 Last Documented On 4 11:14AM ; [facility] Surgical / procedural history c section x 3 1991,1993, and 200207/26/2014 Last Documented On 4 11:14AM ; [facility] Medical History Includes: Medical History addressed during this encounter Description Last Updated Vaccine history 07/31/2023 Last Documented On 4 11:14AM ; [facility] LMP: 06/23/2023 06/30/2023 Last Documented On 4 11:14AM ; [facility] History of screening mammogram was perfo rmed 2021 -- at [facility] 06/30/2023 Last Documented On 4 11:14AM ; [facility] History of Pap smear done 2014 4 Last Documented On 4 11:14AM ; [facility] Systolic blood pressure 140 mmHg 023 Last Documented On 4 11:14AM ; [facility] Diastolic blood pressure 90 mmHg 022 Last Documented On 4 11:14AM ; [facility] Arthritis 05/21/2021 Last Documented On 4 11:14AM ; [facility] Currently wearing eyeglasses 05/21/2021 Last Documented On 4 11:14AM ; [facility] Diabetes 05/21/2021 Last Documented On 4 11:14AM ; [facility] Hypertension 05/21/2021 Last Documented On 4 11:14AM ; [facility] No. of Pregnancies: 3 05/21/2021 Last Documented On 4 11:14AM ; [facility] Contact with and (Suspected) exposure to COVID-19 03/14/2021 Last Documented On 4 11:14AM ; [facility] Date COVID symptoms started: 03/14/2021 Last Documented On 4 11:14AM ; [facility] A mammogram was performed 2018 1 Last Documented On 4 11:14AM ; [facility] A self-exam of the feet was performed Last Documented On 4 11:14AM ; [facility] Blood sugar was checked by the patient 1 04/24/2019 Last Documented On 4 11:14AM ; [facility] Diet noncompliance 02/22/2020 Last Documented On 4 11:14AM ; [facility] nursing home blood sugar check performed 020 Last Documented On 4 11:14AM ; [facility] No recent insulin (hypoglycemic) reactio n 02/22/2020 Last Documented On 4 11:14AM ; [facility] Noncompliance with exercise program 02/07 Last Documented On 4 11:14AM ; [facility] Past medical history 02/22/2020 Last Documented On 4 11:14AM ; [facility] Urine protein was checked 02/22/2020 Last Documented On 4 11:14AM ; [facility] Surgeries: C-sections 1992,1 994,2002. 2013 admitted for extended migraine. ~Illnesses: diabetes, hypertension, OA, Herpes type 1, migraine, Vit D def 04/18/2019 Last Documented On 4 11:14AM ; [facility] History of essential hypertension 2015 Last Documented On 4 11:14AM ; [facility] History of type 2 diabetes mellitus 11/2015 Last Documented On 4 11:14AM ; [facility] History of arthritis 07/17/2015 Last Documented On 4 11:14AM ; [facility] History of diabetes mellitus 07/17/2015 Last Documented On 4 11:14AM ; [facility] History of hypertension 07/17/2015 Last Documented On 4 11:14AM ; [facility] Previous hospitalizations 07/17/2015 Last Documented On 4 11:14AM ; [facility] History of anxiety disorder NOS 07/27/19 15 Last Documented On 4 11:14AM ; [facility] section 07/26/2014 Last Documented On 4 11:14AM ; [facility] In monogamous relationship 07/26/2014 Last Documented On 4 11:14AM ; [facility] Contraception: btl 07/26/2014 Last Documented On 4 11:14AM ; [facility] 3 07/26/2014 Last Documented On 4 11:14AM ; [facility] Para 3 07/26/2014 Last Documented On 4 11:14AM ; [facility] Sexually active 07/26/2014 Last Documented On 4 11:14AM ; [facility] Family History Includes: Family History addressed during this encounter Description Last Updated Family history of malignant female breas t neoplasm P. GREAT AUNT 06/30/2023 Last Documented On 4 11:14AM ; [facility] Family history of malignant neoplasm of large intestine M GRANDFATHER 06/30/2023 Last Documented On 4 11:14AM ; [facility] 5 children 05/21/2021 Last Documented On 4 11:14AM ; [facility] Family history of Arthritis 05/21/2021 Last Documented On 4 11:14AM ; [facility] Family history of anxiety disorder NOS 1 04/04/2020 Last Documented On 4 11:14AM ; [facility] Family history of cancer Col on cancer - maternal granfather ~eye cancer - maternal grandmother 02/02/2021 Last Documented On 4 11:14AM ; [facility] Family history of diabetes mellitus 01/09 Last Documented On 4 11:14AM ; [facility] Family history of heart disease 02/03/20 21 Last Documented On 4 11:14AM ; [facility] Family history of migraine headache 01/09 Last Documented On 4 11:14AM ; [facility] Family history unchanged 08/24/2020 Last Documented On 4 11:14AM ; [facility] FMHx: PGF from lightnin g strike. PGM - DM, HTN, CO age 67. MGF - Alzheimer's 1986. MGM - eye cancer. Uncle - HTN, DM, Kidney failure. Uncle COPD. Mother: HTN, anxiety, COPD 04/18/2019 Last Documented On 4 11:14AM ; [facility] Maternal history of hypertension 016 Last Documented On 4 11:14AM ; [facility] Paternal grandfather's histo ry of malignant neoplasm of the large intestine 07/26/2014 Last Documented On 4 11:14AM ; [facility] Family history of hypertension 5 Last Documented On 4 11:14AM ; [facility] Paternal grandmother's histo ry of diabetes mellitus paternal aunt and uncle 07/26/2014 Last Documented On 4 11:14AM ; [facility] Paternal history of family history of he art disease 07/26/2014 Last Documented On 4 11:14AM ; [facility] Review of Systems Includes: Review of Systems [...] tive Last Documented On 4 11:14AM ; [facility] Floxin Otic Allergy 07/26/2014 Active Last Documented On 4 11:14AM ; [facility] Farxiga Intolerance yeast vaginitis 12/24/2021 A ctive Last Documented On 4 11:14AM ; [facility] Demerol Allergy 07/26/2014 Active Last Documented On 4 11:14AM ; [facility] Cipro Allergy 07/26/2014 Active Last Documented On 4 11:14AM ; [facility] cephalexin Allergy 07/26/2014 Active Last Documented On 4 11:14AM ; [facility] Encounters Encounter Provider Location Date Check-In Time Check-Out Time Diagnosis CHECK UP TOM LILLY M.D. [facility] BLDG [...] Effect reynaldo Dates 1 - [facility] [id number] FAIZAN Webster 03/10/2023 - Unknown 2 - MEDICARE PART A CLAIMS/NGS [id number] FAIZAN Webster Clinical Notes Includes: Clinical Notes from this encounter * Progress note Date Encounter Last Documented by 08/13/2023 CHECK UP Last documented on 08/13/2023; 1:34 PM, TOM LILLY M.D.; [facility] Active Problems & Conditions - [...] 1 refills - [employer] Inject Pen [place] 31G X 5 MM Miscellaneous 31G X [...] and durable medical equipment: wheelchair. 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 Marital: Marital history and currently . Sexual: Sexually active with 1 partners in the last year. Travel: No travel. 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 . No alcohol, drugs, tobacco, vaping. Diet: regular. Exercise: none. Allergies - cephalexin - Cipro - Demerol - Farxiga (Intolerance) Reaction: yeast vaginitis (Mild) - Floxin Otic - Morphine Sulfate Family History 5 children Cancer Colon cancer - maternal granfather eye cancer - maternal grandmother Heart disease Family history unchanged FMHx: PGF from lightning strike. PGM - DM, HTN, CO age 66. MGF - Alzheimer's 1985. MGM [...]
--- OUTSIDE RECORDS SUMMARY | 2024-06-08 17:44 | XMS_ITS | CONTINUITY OF CARE DOCUMENT ---
Author Name cecilia brooks Address Unknown Organization [facility] Address [address] [place] [address] Phone [phone] Care Team Providers Care Gummed Tape Press Operator Name Role Phone Nicole MEMBRENO, Hal Unavailable Nicole MEMBRENO, Hal Unavailable [phone] MAXX MEMBRENO, DR SANTOS Unavailable [phone] PROBLEMS Condition Status Date Provider Notes Hypoalbuminemia active Hal Rivera MD Venous insufficiency active Hal [place] Renal atrophy, left active Hal Rivera MD HTN WHITE COAT;LABS OK 2010 completed 2009 - Primo Hanks NP UPPER RESPIRATORY INFECTION, ACUTE completed - Primo Hanks NP Hypertriglyceridemia active Leyla Ventimiglia [employer] VASCA[A NOT COVRED Chronic back pain active Leyla Silverio timiglia [employer] Pulmonary hypertension active Hal Rivera MD Diastolic CHF active Hal Rivera MD Elevated LFT's active Hal Rivera MD CAD;NEG CAROTID active Hal Rivera MD covid 19;2020;HAD VACCINE active Hal sullivan MD B12 deficiency active Hal Rivera MD Folate-deficiency active Hal Rivera MD Microalbuminuria active Hal Rivera MD Renal disease, chronic, mild;neg us and renal angio active Hal Rivera MD Screening active Hal Rivera MD Vitamin D deficiency active Primo Hanks NP Anasarca completed - Hal Rivera MD Hypertension;neg duplex active Hal lundberg MD ANXIETY DISORDER completed - Primo Hanks NP SLEEP APNEA active Primo Hanks NP ANGINA PECTORIS;WILL NUCLEAR completed 201 - Pirmo Hanks NP TUBAL LIGATION STERILIZATION STATUS completed - Primo Hanks NP Hyperlipidemia;with high crp and low lpa active Leyla Ventimiglia [employer] DID NOT GIOVANNA STATIN ANEMIA, IRON DEFICIENCY active Primo coe NP DIZZINESS;WILL BROWNE completed - Hal Rivera MD DYSPNEA ON EXERTION completed - Hal Rivera MD DIABETES MELLITUS active Hal Rivera MD OBESITY active Primo Hanks NP ENCOUNTERS Date Type Provider Location Encounter Diag nosis 3 - 3 In-person encounter Office Visit Hal Rivera MD [facility] Hyperlipidemia;with high crp and low lpaHypertriglyceridemiaChronic back pain 1 - 1 In-person encounter Office Visit Hal Rivera MD [facility] Renal disease, chronic, mild;neg us and renal angioCAD;NEG CAROTIDElevated LFT'sDiastolic CHFPulmonary hypertension 8 - 8 In-person encounter Office Visit Hal Rivera MD [facility] 9 - 1 In-person encounter Office Visit Eyad Miramontes MD [facility] 0 - 0 In-person encounter Office Visit Hal Rivera MD [facility] ScreeningRenal disease, chronic, mild;neg us and renal angiocovid ;HAD VACCINE 1 - 1 In-person encounter Office Visit Hal Rivera MD [facility] DYSPNEA ON EXERTIONDIZZINESS;WILL WUAnasarcaRenal disease, chronic, mild;neg us and renal angioMicroalbuminuriaFolate-defici encyB12 deficiency 6 - 7 In-person encounter Office Visit Hal Rivera MD [facility] HTN WHITE COAT;LABS [place] 2010OBESITYANEMIA, IRON DEFICIENCYTUBAL LIGATION STERILIZATION STATUSANGINA PECTORIS;WILL NUCLEARSLEEP APNEAANXIETY DISORDERUPPER RESPIRATORY INFECTION, ACUTEHypertension;neg duplexVitamin D deficiency 3 - 9 In-person encounter Office Visit [facility] Office 4 - 0 In-person encounter Office Visit [facility] Office 5 - 9 In-person encounter Office Visit [facility] Office 7 - 3 In-person encounter Office Visit [facility] Office 4 - 4 In-person encounter Office Visit Hal Rivera MD [facility] OBESITYDIABETES MELLITUSDYSPNEA ON EXERTIONANEMIA, IRON DEFICIENCYHyperlipidemia;with high crp and low lpaSLEEP APNEA VITAL SIGNS Date Observation Value Provider Body Mass Index (Ratio) 54.20 kg/m2 Luli Rivera MD respiratory rate E&M 16 /min Leyla Ventimiglia [employer] blood pressure, diastolic 80 mm[Hg] Nh ryan Munger blood pressure, systolic 168 mm[Hg] Gaby dubois Munger oxygen saturation, oximetry 96 % [facility] pulse rate 85 /min [facility] blood pressure, cuff size regular Nh ryan Munger weight E&M 315.8 [lb_av] Nhryan Cohn height E&M 64 [in_i] [facility] Body Mass Index (Ratio) 54.92 [...] er height E&M 64 [in_i] Gris Swartze [facility] Body Mass Index (Ratio) 54.41 kg/m2 [...] injector subcutaneously once a week Leyla Ventimiglia [employer] torsemide 10 mg tablet active Leyla Ventimiglia [employer] torsemide 20 mg tablet active Leyla Ventimiglia [employer] Zetia 10 mg tablet active TAKE 1 TABLET BY MOUTH EVERY DAY Leyla Ventimiglia [employer] Soaanz 40 mg tablet active 1 tablet [...] by mouth twice a day - [facility] Nexlizet 180-10 mg tablet completed Take 1 tablet by mouth once a day - Leylaharleen [facility] DAMICOP Kerendia 20 mg tablet completed TAKE [...] cup of water and drink daily - Hla Rivera MD ezetimibe 10 mg tablet completed [...] mouth once a day - Leyla Sarina [facility] aspirin 81 mg tablet,chewable active Take 1 tablet by mouth once a day Hal Rivera MD cyanocobalamin (vitamin B-12) 1,000 mcg capsule active TAKE 1 CAPSULE BY MOUTH EVERY DAY [facility] ergocalciferol (vitamin D2) 1,250 mcg (50,000 unit) capsule active Take 1 capsule by mouth once a week [facility] torsemide 40 mg tablet completed every [...] TAKE 1 TABLET BY MOUTH ONCE DAILY [facility] Ozempic 0.25 mg or 0.5 mg(2 [...] history of marijuana use no Leyla Ventimiglia [facility] drug use no Leyla Ventimig desiree [facility] alcohol use no Leyla Ventimig desiree [facility] smoking status Former smoker Leyla Venti miglia [facility] smoking status Former smoker Montserrattoño Stoll s [...] munoz smoking status former smoker Gris Harden [facility] physical exercise, frequency, days per week no [...] Policy type / Coverage type Moreno red libertarian ID [facility] [id number] ADVANCE DIRECTIVES Name Date DISCUSSED - NO DECISION MADE TREATMENT PLAN Date Name Performer [id number],C,s core 54, neg stres in 05 and nuc in 11 Hal Rivera MD [id number],C,34 Hal sullivan MD [id number],S, 9 .4 Hal Rivera MD [id number],S, Hal lundberg MD [id number],S, 3 70 Hal Rivera MD [id number],B, Hal lundberg MD [id number],B, aHl lundberg MD [id number],C,N EEDS COLONS S he is anemic and has a hx of iron deficiency. Her anemia is microcytic and I suspect that she is iron deficient again given her recent vegetarian diet. I will check an iron panel and she will take PO iron for now as well as vitamin B12. She may need IV iron infusions as well. Hal Rivera MD [id number],S,n eg echo, neg aaa n eg pro, heg holter, neg brai ct n eg stres 05, neg carotdi duples n eg nuc 11 Hal Rivera MD [id number],B,3 6 2 5 Hal Rivera MD [id number],S, H er updated medication list for this [...] rior BP: 169/87 (11/07/2022) Hal Rivera MD [id number],S, Hal lundberg MD [id number],S, C ontinue CPAP use. Hal Rivera MD [id number],S, Hal Serot toño MEMBRENO [id number],S, Hal Serot a [id number],S,370 Hal luis MD [id number],S,some day will need col Hal Rivera MD [id number],S,9.4 Hal luis MD [id number],S,25 Hal sullivan MD [id number],B, n m pro Hal Rivera MD [id number],S, n m pro Hal Nicole MEMBRENO [id number],S,n eg pro, heg holter, neg brai ct n eg stres 05, neg carotdi duples n eg nuc 11 Hal Rivera MD [id number],C,nm pro Hal Rivera MD [id number],C,neg stres 05, neg carotdi duples Hal Rivera MD [id number],C,Continue CPAP use. Primo Duboiscarolin TRAFFIC ADMINISTRATOR [id number],C,T he patient has severe vitamin D deficiency. I will start vitamin D 50,000 units per week. Primo Roncarolin TRAFFIC ADMINISTRATOR [id number],C,S he is anemic and has a hx of iron deficiency. Her anemia is microcytic and I suspect that she is iron deficient again given her recent vegetarian diet. I will check an iron panel and she will take PO iron for now as well as vitamin B12. She may need IV iron infusions as well. Primo Hanks TRAFFIC ADMINISTRATOR [id number],C,N ot well controlled. She did not tolerate Metformin in the past due to GI issues. I will add Jardiance 25mg qday as noted above and I will also add Ozempic. She will hopefully be able to decrease and eventually with further medication adjustment, come off insulin entirely. Primo Hanks TRAFFIC ADMINISTRATOR [id number],C,L ipids are significantly elevated. I will add Rosuvastatin 20mg qday and Ezetimibe 10mg qday. Her lipids will also see improvement with better glycemic control. Primo Hanks TRAFFIC ADMINISTRATOR [id number],C,B lood pressure is elevated. I will add Carvedilol 12.5mg BID. I will continue Amlodipine and Irbesartan without change. Diuresis will also improve her blood pressure with Jardiance and Kerendia. I will stop Clonidine as it is short acting and causes rebound hypertension. She will be better served with longer acting medications that are taken routinely. Primo Hanks TRAFFIC ADMINISTRATOR [id number],C,T he patient has generalized anasarca and significant [...] qday and Kerendia 10m qday. Primo Hanks TRAFFIC ADMINISTRATOR Cardiology:patient h as chronic back that limits her ability to walk more than 50 feet at a time. She has now purchased a scNativister d/t these mobility issues H ave recommended PT for back pain along with gait and balance training [facility] Cardiology:continue with yelitza sarah stockings [facility] Cardiology:Last Hgb A1C 8% in 08/2023 S [...] 1 tablet by mouth once a day [facility] Cardiology:The patie nt is using CPAP on a regular basis. The patient has been benefiting from therapy and should continue use. [facility] Cardiology:Remains o n Jardiance A ppears [...] 1 tablet by mouth once a day [facility] Cardiology:LDL 112 p atient does not want [...] Take 1 tablet by mouth every day [facility] Cardiology:BP 168/80 above goal, reports better controlled [...] 1 tablet by mouth once a day [facility] Cardiology:on iron and last hgb was 8.6 [facility] Cardiology:on replacement therap y [facility] :neg hep panel Hal Rivera MD :27 [...] nuc in 11 Hal Rivera MD Cardiology aHl Rivera MD Cardiology: C ontinue CPAP use. Angelajose Lopezaren TRAFFIC ADMINISTRATOR Cardiology:CRP 6.3 H er updated medication list for this problem includes: Ezetimibe 10 Mg Tablet (Ezetimibe) ..... Take 1 tablet by mouth once a day Rosuvastatin 20 Mg Tablet (Rosuvastatin) ..... Take 1 tablet by mouth once a day Angela Johnluri TRAFFIC ADMINISTRATOR Cardiology: N ARTI LESTERInes S he is anemic and has a hx of iron deficiency. Her anemia is microcytic and I suspect that she is iron deficient again given her recent vegetarian diet. she will take PO iron for now as well as vitamin B12. She may need IV iron infusions as well. planning to consult with company dancer [facility] Gwenri TRAFFIC ADMINISTRATOR Cardiology: 9 .4 N ot controlled well. Was on ozempic, which controlled her sugars well per pt. s topped due to impaired renal function e ncoraged to resume Angela Johnluri TRAFFIC ADMINISTRATOR Cardiology: 3 70 [facility] TRAFFIC ADMINISTRATOR Cardiology: H er updated medication list for this problem includes: Ezetimibe 10 Mg Tablet (Ezetimibe) ..... Take 1 tablet by mouth once a day Rosuvastatin 20 Mg Tablet (Rosuvastatin) ..... Take 1 tablet by mouth once a day Angela Nalluri TRAFFIC ADMINISTRATOR Cardiology:swelling improved with toresemide, still some present. Reports mild pain. V enous duplex shows severe venous insufficiency bilaterally r ecommeded to wear compression stockings and ambulate more [facility] Johnluri TRAFFIC ADMINISTRATOR Cardiology: s core 54, neg stres in 05 and nuc in 11 [facility] TRAFFIC ADMINISTRATOR Cardiology:Renal US showed Small left kidney without evidence of nephrolithiasis, hydronephrosis, or solid renal mass. R enal duplex: no renal artery stenosis bilaterally E GFR 34, cr 1.8 C T vs angiogram CO2, to avoid/raduce dye. Explained risks and benefits. p atient would like to proceed with renal angiogram. with CO2 Angela Nalluri TRAFFIC ADMINISTRATOR Cardiology: g fr 34 Angelajose Lopezluri TRAFFIC ADMINISTRATOR :score 54, neg stres in 05 and [...] medications that are taken routinely. Primo Hanks TRAFFIC ADMINISTRATOR Cardiology:The patie nt has generalized anasarca and [...] One tab. daily Orders: C omplete Echo (CPT-20802) H olter Monitor 24 Hr (CPT-49984) S pirometry (CPT-08700) S tress Test - Adenosine (69518) Hal Rivera MD follow up: O rders: C omplete Echo (CPT-60697) H olter Monitor 24 Hr (CPT-10928) S pirometry (CPT-26572) S tress Test - Adenosine (00609) Hal Rivera MD follow up: H er updated medication list for this problem includes: Aspirin 81 Mg Tabs (Aspirin) ..... One tab. daily Altace 5 Mg Caps (Ramipril) ..... One tab. daily Orders: C omplete Echo (CPT-80914) H olter Monitor 24 Hr (CPT-66735) S pirometry (CPT-81201) S tress Test - Adenosine (01813) Hal Rivera MD follow up: H er updated medication list for this problem includes: Aspirin 81 Mg Tabs (Aspirin) ..... One tab. daily Altace 5 Mg Caps (Ramipril) ..... One tab. daily Orders: C omplete Echo (CPT-11709) H olter Monitor 24 Hr (CPT-43662) S pirometry (CPT-74639) S tress Test - Adenosine (89462) Hal Rivera MD follow up: H er updated medication list for this problem includes: Aspirin 81 Mg Tabs (Aspirin) ..... One tab. daily Pravachol 40 Mg Tabs (Pravastatin sodium) ..... One tab. daily Altace 5 Mg Caps (Ramipril) ..... One tab. daily Orders: C omplete Echo (CPT-76461) H olter Monitor 24 Hr (CPT-61086) S pirometry (CPT-77499) S tress Test - Adenosine (49001) Hal Rivera MD follow up: H er updated medication list for this problem includes: Aspirin 81 Mg Tabs (Aspirin) ..... One tab. daily Orders: C omplete Echo (CPT-72937) H olter Monitor 24 Hr (CPT-47560) S pirometry (CPT-97912) S tress Test - Adenosine (72832) Hal Rivera MD follow up: O rders: C omplete Echo (CPT-67587) H olter Monitor 24 Hr (CPT-95898) S pirometry (CPT-87373) S tress Test - Adenosine (19270) Hal Rivera MD follow up: O rders: C omplete Echo (CPT-80968) H olter Monitor 24 Hr (CPT-41643) S pirometry (CPT-83055) S tress Test - Adenosine (10250) Hal Rivera MD follow up Hal Rivera [...] MD complete d CT- Coronary CA score Hal Rivera MD completed EKG Hal Rivera MD complete d ePrescribe - Check t his box if eRx is used TD GREER MD completed EKG Hal Rivera MD complete d
--- OUTSIDE RECORDS SUMMARY | 2024-06-08 17:44 | XMS_ITS | Clinical Summary ---
Author Organization [facility] Address [address] [place] [address] Phone Care Team Providers Care Production Control Clerk Name Role Phone aMtias Warren MD Primary Care Provider [phone] Allergies Active Allergy Reactions Criticality Noted Date [...] years) (1 of 2 - PCV) 1993 Pap Smear 1995 Cervical Cancer Screening (CCS) 2004 HPV/Cotest 2004 Hepatitis B Immunization (2 of 3 - 19+ 3-dose series) 11/07/2014 10/10/2014 Diabetes: Hemoglobin A1c 04/17/2019 019, 06/12/2017, 02/08/2017, Additional history exists Colonoscopy 2019 Colorectal Cancer Screening 2019 Diabetes: Nephropathy Screening 10/16/2019 10/15/2018, 02/08/2017, 01/17/2017 Influenza Immunization (#1) 11/09/202312/09, 12/03/2019, 02/06/2018, Additional history exists SARS-COV-2 Immunization ( season) 2023 06/09/2020, 05/12/2020 Cologuard 2024 Immunochemical [...] Recently Relevant to Health Maintenance Insurance MEDICARE [facility] Care Teams Production Control Clerk Relationship Specialty Start Date End Date Matias Warren MD [address] [place] [id number] PCP - General Family Medicine 07/09/23
--- OUTSIDE RECORDS SUMMARY | 2024-06-08 17:44 | XMS_ITS ---
Author Organization [facility] Address [address] [place] [id number] Care Team Providers Care Processing Analyst Name Role Phone Kelvin MEMBRENO, Andres Primary Care Provider Rudy Moses Unavailable [phone] ALLERGIES Allergen (clinical drug ingredient) Drug/Non Drug [...] Duration) Notes Start Date End Date Status Aspirin 81 81 MG 1 tablet Orally Once a day for 30 day(s) Active Vitamin C 500 MG as directed Orally Active Vitamin D (Ergocalciferol) 37066 UNIT 1 capsule Orally Once a week Active Kerendia 10 MG 1 tablet Orally Once a day for 30 day(s) Active Veltassa 8.4 GM 1 packet dissolved i n water. Take other medications at least 3 hours before or 3 hours after this medication Orally Once a day for 30 day(s) Active Vitamin B-12 1000 MCG 1 tablet Orally Once a day for 30 day(s) Not-Taking Ozempic (0.25 or 0.5 MG/DOSE) 2 MG/3ML as directed Subcutaneous once a week LAST DOSE 2 WEEKS AGO Not-Taking Torsemide 10 MG 1 tablet Orally Once a day for 90 days Active Iron (Ferrous Sulfate) 325 (65 Fe) MG 1 tablet Orally Once a day Not-Taking Folic Acid 400 MCG 1 tablet Orally Once a day for 30 day(s) Active Ferrous Sulfate 325 (65 Fe) MG 1 tablet Orally two times a day for 90 days 12/23/2022 Active amLODIPine Besylate 10 MG 1 tablet Orally Once a day for 30 day(s) Active Fluconazole 150 MG as directed Orally Not-Taking Carvedilol 25 MG 1 tablet with food Orally Twice a day Active diazePAM 10 MG 1 tablet as needed Orally three times a day Active Jardiance 25 MG 1 tablet Orally Once a day for 30 day(s) Active Irbesartan 300 MG 1 tablet Orally Once a day for 30 day(s) Active IMMUNIZATIONS Vaccine Route Administration Date Status Comme nts Influenza Unknown 12/23/2022 Others SOCIAL HISTORY Tobacco Use: Social History Observation Description Date Details (start date - stop date) Former Smoker NA - NA Sex Assigned At : Social History Observation Description Sex Assigned At Unknown Tobacco Use/Smoking Question Answer Notes You are a former smoker VITAL SIGNS BMI 50.29 kg/m2 12/23/2022 Blood pressure systolic 132 mm Hg 12/24/19 23 Blood pressure diastolic 72 mm Hg 023 Heart Rate 78 /min 12/23/2022 Height 64 in 12/23/2022 Weight 293 lbs 12/23/2022 Encounters Encounter Location Date Provider Diagnosis [address] [id number] 12/23/2022 Rudy Veloz Acute kidney failure , unspecified [...] Assessment Notes Treatment Notes Treatment Clinical Notes 12/23/2022 Acute kidney failure, unspecified (ICD-10 - N17.9) 12/23/2022 CHRONIC KIDNEY DISEASE STAGE 3 UNSPECIFIED (ICD-10 - N18.30) low k diet 12/23/2022 Essential (primary) hypertension (ICD-10 - I10) 12/23/2022 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 12/23/2022 Obesity, unspecified (ICD-10 - E66.9) work on wt reduction 12/23/2022 Vitamin D deficiency, unspecified (ICD-10 - E55.9) cont with vit supplement 12/23/2022 Iron deficiency anemia, unspecified (ICD-10 - D50.9) Add feso4 325 mg bid 12/23/2022 Edema, unspecified (ICD-10 - R60.9) increase torsemide 10mg daily Diuretic will aslo improve high k level. 12/23/2022 Other Cont veltassa f or high k. PLAN OF TREATMENT Medication Medication Name Sig Start Date Stop Date Notes Torsemide 10 MG 1 tablet Orally Once a day for 90 days Ferrous Sulfate 325 (65 Fe) MG 1 tablet Orally two times a day for 90 days 12/23/2022 Treatment Notes Assessment Notes CHRONIC KIDNEY DISEASE [...] Diuretic will aslo improve high k level. Other Cont veltassa for hi gh k. Future Test Test Name Order Date Iron and TIBC 03/25/2023 RENAL PANEL 03/25/2023 Ferritin 03/25/2023 Vitamin D, 25-Hydroxy 03/25/2023 URINE PROTEIN W/CREAT RATIO 03/25/2023 CBC without Differential 03/25/2023 Next Appt Details Follow Up: 4 Months, Reason: Progress Notes * Examination Category Sub-Category Detail Notes Physical Examination GENERAL APPEARANCE: in no a cute distress HEAD: normocephalic EYES: sclera non-icteric NECK/THYROID: no jugular venous di stention HEART: S1, S2 normal LUNGS: clear to auscultatio n bilaterally ABDOMEN: soft, nontender, non distended NEUROLOGIC: alert and oriented, grossly nonfocal SKIN: no rashes, warm and dry EXTREMITIES: no edema ORAL CAVITY: mucosa moist LAB SUMMARY: ///// [id number] 3425 Creat1.72 1.81.3 [id number] K5.35.2 5.15 [id number] 607666 [id number] 1916 Calcium9.69.4 8.79.3 PO45.4 Ihchmpv05.1 2.8 [id number] 851650 EGFR 3630 3247 Hgb9.19.8 10.511 Hct27.429.4 30.732.2 WBC9.48 8.78 [id number] [id number] Vit D 20.4 13.213.5 Vit B12 241 Folate 6.2 Iron 67 5255 TIBC 372 253871 % Sat 18 1516 Ferritin 129 CHOL 701052 TRIG 183 HDL 54 LDL 152 HbA1C 10 9.28.6 UA Protein 3+ UA Blood 2+ UA WBC 0-2 U C/S <10,000 mixed ernesto RU Creat 67.1 mg/dl RU Protein 370.4 mg/dl Protein/Creat ratio 5520 mg/g PTH 76 U Protein Electrophoresis No abnormal protein is observed S Protein Electrophoresis No restricted band (m-spike) seen History and Physical Notes * HPI (History of Present Illness) Category Sub-Category Detail Notes Brief summary Patient with 47 yo here [...] for last 5-6 months,stopped recently. Pt states promotional marketing agent started her on Kerrendia aling with Veltassa. Presenting symptoms Patient reported As above.
--- OUTSIDE RECORDS SUMMARY | 2024-06-08 17:44 | XMS_ITS | Clinical Summary ---
Author Organization [facility] Address [address] [facility] [place] [address] Care Team Providers Care Clinical Informaticist Name Role Phone Teresita Cortez MD Primary Care Provider Source Comments [facility] Affiliates and Associated Physician Practices is amultiple site organization consisting of ambulatory clinics and hospital sitesin [place], [place] and [place]. This disclosure is being madepursuant to the Care Everywhere program and may not contain all information available regarding this patient. Last updated 17.[facility] VitalsGuard Allergies Active Allergy Reactions Criticality Noted Date [...] VACCINE ( - 2023-2 5 season) 2023 DEPRESSION SCREENING 03/10/2024 PNEUMOCOCCAL VACCINE 50+ (1 of 1 - PCV) 2024 ZOSTER VACCINE (1 of 2) 2024 INFLUENZA VACCINE (Season Ended) 2024 12/06/2019, 03/10/2010 HIB VACCINE Aged Out No longer eligi ble based on patient's age to complete this topic HPV VACCINE Aged Out No longer eligi ble based on patient's age to complete this topic MENINGOCOCCAL (Group B) VACCINE SHARED DECISION-MAKING Aged Out No longer eligible based on patient's age to complete this topic MENINGOCOCCAL GROUPS A/C/Y/W VACCINE Aged Out No longer eligible b ased on patient's age to complete this topic Care Teams Clinical Informaticist Relationship Specialty Start Date End Date Teresita Cortez MD [address] [place] [address] [address] [place] [address] PCP - General 05/07/19
--- OUTSIDE RECORDS SUMMARY | 2024-06-08 17:44 | XMS_ITS | Referral Summary ---
Author Organization [facility] Address [address] [place] [phone] Care Team Providers Care Air Conditioning Manager Name Role Phone Matias Warren MD Primary Care Provider [phone] Allergies Active Allergy Reactions Criticality Noted Date [...] drink = 0.6 oz pur e alcohol) [facility] Utilities Answer Date Recorded In the past 12 months has [employer], [employer], or water [employer] threatened to shut off services in your [...] often do you attend chur ch or rastafarian services? Never 07/23/2023 Do you belong to any clubs o r organizations such as adventist groups, unions, fraternal or athletic groups, or [...] place to sleep or slept in a chcf (including now)? No 07/23/2023 Personal Safety Answer [...] on file Legal Sex Female 11:36 AM [employer] Gender Identity Not on file Sexual Orientation [...] Plan of Treatment Not on file Insurance [employer] MEDICARE [facility] HMO/PPO Address: [facility] [id number] [place] [address] MEDICARE [facility] ANGELA [facility] MEDICARE [facility] MEDIC[facility] Address: [address] [address] [place] [address] Advance Directives For more information, please contact: [phone] * Full Code (Latest Code Status on File) Date Activated Date Inactivated Comments 07/23/2023 3:39 PM 07/25/2023 6:34 PM Care Teams Air Conditioning Manager Relationship Specialty Start Date End Date Matias Warren MD [address] [place] [id number] PCP - General Internal Medicine 07/20/23
--- OUTSIDE RECORDS SUMMARY | 2024-06-08 17:45 | XMS_ITS | Clinical Summary ---
Author Organization [facility] Address [address] [place] [address] Phone Care Team Providers Care Parts Professional Name Role Phone ИВАН LILLY MD Primary Care Provider [phone] MAXX Melgar, TOM Acosta [phone] Reason for Visit and Chief Complaint WOUND CHECK - NEW PATIENT Problems Includes: Problems addressed during this encounter and other active Problems All Visits Onset Date Resolved Date Provider Condition S tatus Diabetes Mellitus Type 2 07/14/2023 TOM LILLY M.D. Active Last Documented On 4 4:48PM ; [facility] Chronic Kidney Disease Stage 2 Due To Type 2 Diabetes Mellitus 06/30/2023 LAURA JOHN B C Active Last Documented On 4 1:29PM ; [facility] Hyperlipidemia Due To Type 2 Diabetes Mellitus 06/30/2023 LAURA MOSER Activ e Last Documented On 4 1:31PM ; [facility] Note: elevated crp Venous Insufficiency 06/30/2023 LAURA MOSER Active Last Documented On 4 1:30PM ; [facility] Iron Deficiency Anemia 02/11/2022 TOM INMAN M.D. Active Last Documented On 2 5:00PM ; [facility] Nonorganic Sleep Apnea Adult 05/21/2021 TOM LILLY M.D. Active Last Documented On 2 5:37PM ; [facility] Generalized Anxiety Disorder 02/05/2021 SCOOTER L MAURA DO Active Last Documented On 1 9:22AM ; [facility] Obesity Morbid 02/05/2021 SCOOTER Meagan SHAVERMAURA DO Ac tive Last Documented On 1 9:22AM ; [facility] Vitamin D Deficiency 05/24/2020 ARLEY HEATH MD Active Last Documented On 1 4:27PM ; [facility] Essential Hypertension 07/17/2015 CANDIS MANRIQUE MD Active Last Documented On 6 5:39PM ; [facility] Plan of Treatment Care Programs CHRONIC CARE MANAGMENT Last Documented On 1 11:07AM ; [facility] Assessments Includes: Assessments from this encounter No Assessments Recorded Medical Equipment - Implanted Devices Includes: Current Devices No Medical Equipment Recorded Medications Includes: Medications discussed during this encounter and other current Medications Current Medications (continue as prescribed) Diflucan 150 MG Oral Tablet 08/14/2023 Provider: TOM LILLY M.D. Diagnosis: One tablet daily Last Documented On 08/14/2023 11:36AM By ИВАН LILLY MD ; [facility] Sodium Bicarbonate 650 MG Oral Tablet 08/13/2023 Pro vider: Diagnosis: Last Documented On 08/13/2023 11:26AM By Marques MAGDALENO ; [facility] diazePAM 10 MG Oral Tablet 08/11/2023 Provider: TOM LILLY M.D. Diagnosis: Generalized anxi ety disorder TAKE 1 TABLET BY MOUTH THREE TIMES DAILY Last Documented On 08/11/2023 8:59AM By ИВАН LILLY MD ; [facility] amLODIPine Besylate 10 MG Oral Tablet 08/10/2023 Provider: TOM LILLY M.D. Diagnosis: Essential (prima ry) hypertension TAKE 1 TABLET BY MOUTH EVERY DAY Last Documented On 08/10/2023 9:13PM By ИВАН LILLY MD ; [facility] Jardiance 25 MG Oral Tablet 08/10/2023 Provider: TOM LILLY M.D. Diagnosis: Type 2 diabetes mellitus with hyperglycemia One tablet daily Last Documented On 08/10/2023 9:13PM By ИВАН LILLY MD ; [facility] Torsemide 10 MG Oral Tablet 08/09/2023 Provider: VIRGILIO SAENZ MD Diagnosis: Last Documented On 08/13/2023 11:26AM By Marques MAGDALENO ; [facility] metOLazone 2.5 MG Oral Tablet 08/08/2023 Provider: HARPER FISHER MD Diagnosis: Last Documented On 08/13/2023 11:26AM By Marques MAGDALENO ; [facility] BD Pen Needle Mini U/F 31G X 5 MM Miscellaneous 08/07/2023 Provider: TOM Diaz Diagnosis: Type 2 diabetes mellitus without complications as directed Last Documented On 08/07/2023 11:48AM By ИВАН LILLY MD ; [facility] Basaglar KwikPen 100 UNIT/ML Subcutaneous Solution Pen-injector 07/31/2023 Provider: TOM Ma Diagnosis: 40 u at night Last Documented On 4 8:36AM By TRINH TEJADA ; [facility] FeroSul 325 (65 Fe) MG Oral Tablet 07/31/2023 Provid er: Diagnosis: Last Documented On 4 8:36AM By TRINH TEJADA ; [facility] HumaLOG KwikPen 100 UNIT/ML Subcutaneous Solution Pen-injector 07/28/2023 Provider: TOM Ma Diagnosis: 14 u with meals Last Documented On 4 8:36AM By TRINH TEJADA ; [facility] Folic Acid 1 MG Oral Tablet 05/19/2023 Provider: TOM LILLY M.D. Diagnosis: Deficiency of ot her specified B group vitamins One tablet daily Last Documented On 4 8:36AM By TRINH TEJADA ; [facility] Dexcom G6 Transmitter Miscellaneous 03/03/2023 Provider: TOM LILLY M.D. Diagnosis: Type 2 diabetes mellitus with hyperglycemia USE DIRECTED TO CHECK BLOOD SUGAR Last Documented On 4 8:36AM By TRINH TEJADA ; [facility] Veltassa 8.4 GM Oral Packet 12/10/2022 Provider: Diagnosis: once daily Last Documented On 4 8:36AM By TRINH TEJADA ; [facility] Aspirin Adult Low Dose 81 MG Oral Tablet Delayed Relea se 12/10/2022 Provider: Diagnosis: Last Documented On 4 8:36AM By TRINH TEJADA ; [facility] Global Ease Inject Pen Needl es 31G X 5 MM Miscellaneous 11/08/2022 Provider: TONY [place] Diagnosis: DIRECTED TEST THREE TIMES DAILY Last Documented On 4 8:36AM By TRINH TEJADA ; [facility] Vitamin D3 125 MCG (5000 UT) Oral Capsule 10/09/2022 Provider: TOM LILLY M.D. Diagnosis: Vitamin D defici ency, unspecified One tablet daily Last Documented On 4 8:36AM By TRINH TEJADA ; [facility] Vitamin B12 1000 MCG Oral Tablet 10/09/2022 Provider: TOM LILLY M.D. Diagnosis: Deficiency of ot her specified B group vitamins One tablet daily Last Documented On 4 8:36AM By TRINH TEJADA ; [facility] Medications Administered Includes: Administered [...] Location Service Date UNNA BOOT APPLICATION (LEFT) [address] Chronic venous hypertension w ulcer of l low extrem JULIANO MARTINEZ [facility] 08/18/2023 Last Documented On 4 11:24AM ; [facility] Medical History Includes: Medical History [...] tive Last Documented On 4 11:14AM ; [facility] Floxin Otic Allergy 07/26/2014 Active Last Documented On 4 11:14AM ; [facility] Farxiga Intolerance yeast vaginitis 12/24/2021 A ctive Last Documented On 4 11:14AM ; [facility] Demerol Allergy 07/26/2014 Active Last Documented On 4 11:14AM ; [facility] Cipro Allergy 07/26/2014 Active Last Documented On 4 11:14AM ; [facility] cephalexin Allergy 07/26/2014 Active Last Documented On 4 11:14AM ; [facility] Encounters Encounter Provider Location Date Check-In Time Check- Out Time Diagnosis WOUND CHECK - NEW PATIENT JULIANO MARTINEZ DO [facility] 4 2:00PM 2:55PM Insurance Includes: Active Insurance Policies Plan Name Member ID Group # Subscriber Relationship Effect reynaldo Dates 1 - [facility] [id number] FAIZAN Webster 03/10/2023 - Unknown 2 - MEDICARE PART A CLAIMS/NGS [id number] FAIZAN Webster Clinical Notes Includes: Clinical Notes from this encounter No Clinical Notes Recorded
--- OUTSIDE RECORDS SUMMARY | 2024-06-08 17:45 | XMS_ITS | Clinical Summary ---
Author Organization [facility] Address [address] [place] [address] Phone Care Team Providers Care Hazardous Substances Scientist Name Role Phone ИВАН LILLY MD Primary Care Provider [phone] MAXX Melgar, TOM Acosta [phone] Reason for Visit and Chief Complaint WOUND CHECK - EST PATIENT Problems Includes: Problems addressed during this encounter and other active Problems All Visits Onset Date Resolved Date Provider Condition S tatus Diabetes Mellitus Type 2 07/14/2023 TOM LILLY M.D. Active Last Documented On 4 4:48PM ; [facility] Chronic Kidney Disease Stage 2 Due To Type 2 Diabetes Mellitus 06/30/2023 LAURA FONTENOT RN AVA B C Active Last Documented On 4 1:29PM ; [facility] Hyperlipidemia Due To Type 2 Diabetes Mellitus 06/30/2023 LAURA FONTENOT RN AVA BC Activ e Last Documented On 4 1:31PM ; [facility] Note: elevated crp Venous Insufficiency 06/30/2023 LAURA MOSER Active Last Documented On 4 1:30PM ; [facility] Iron Deficiency Anemia 02/11/2022 TOM INMAN M.D. Active Last Documented On 2 5:00PM ; [facility] Nonorganic Sleep Apnea Adult 05/21/2021 TOM LILLY M.D. Active Last Documented On 2 5:37PM ; [facility] Generalized Anxiety Disorder 02/05/2021 SCOOTER L MAURA DO Active Last Documented On 1 9:22AM ; [facility] Obesity Morbid 02/05/2021 SCOOTERJose LORENZO DO Ac tive Last Documented On 1 9:22AM ; [facility] Vitamin D Deficiency 05/24/2020 ARLEY HEATH MD Active Last Documented On 1 4:27PM ; [facility] Essential Hypertension 07/17/2015 CANDIS MANRIQUE MD Active Last Documented On 6 5:39PM ; [facility] Plan of Treatment Care Programs CHRONIC CARE MANAGMENT Last Documented On 1 11:07AM ; [facility] Assessments Includes: Assessments from this encounter No Assessments Recorded Medical Equipment - Implanted Devices Includes: Current Devices No Medical Equipment Recorded Medications Includes: Medications discussed during this encounter and other current Medications Current Medications (continue as prescribed) Diflucan 150 MG Oral Tablet 08/14/2023 Provider: TOM LILLY M.D. Diagnosis: One tablet daily Last Documented On 08/14/2023 11:36AM By ИВАН LILLY MD ; [facility] Sodium Bicarbonate 650 MG Oral Tablet 08/13/2023 Pro vider: Diagnosis: Last Documented On 08/13/2023 11:26AM By Marques Peters Jose ; [facility] diazePAM 10 MG Oral Tablet 08/11/2023 Provider: TOM LILLY M.D. Diagnosis: Generalized anxi ety disorder TAKE 1 TABLET BY MOUTH THREE TIMES DAILY Last Documented On 08/11/2023 8:59AM By ИВАН LILLY MD ; [facility] amLODIPine Besylate 10 MG Oral Tablet 08/10/2023 Provider: TOM LILLY M.D. Diagnosis: Essential (prima ry) hypertension TAKE 1 TABLET BY MOUTH EVERY DAY Last Documented On 08/10/2023 9:13PM By ИВАН LILLY MD ; [facility] Jardiance 25 MG Oral Tablet 08/10/2023 Provider: TOM LILLY M.D. Diagnosis: Type 2 diabetes mellitus with hyperglycemia One tablet daily Last Documented On 08/10/2023 9:13PM By ИВАН LILLY MD ; [facility] Torsemide 10 MG Oral Tablet 08/09/2023 Provider: VIGRILIO SAENZ MD Diagnosis: Last Documented On 08/13/2023 11:26AM By Marques MAGDALENO ; [facility] metOLazone 2.5 MG Oral Tablet 08/08/2023 Provider: HARPER FISHER MD Diagnosis: Last Documented On 08/13/2023 11:26AM By Marques MAGDALENO ; [facility] BD Pen Needle Mini U/F 31G X 5 MM Miscellaneous 08/07/2023 Provider: TOM Diaz Diagnosis: Type 2 diabetes mellitus without complications as directed Last Documented On 08/07/2023 11:48AM By ИВАН LILLY MD ; [facility] Basaglar KwikPen 100 UNIT/ML Subcutaneous Solution Pen-injector 07/31/2023 Provider: TOM Ma Diagnosis: 40 u at night Last Documented On 4 8:36AM By TRINH TEJADA ; [facility] FeroSul 325 (65 Fe) MG Oral Tablet 07/31/2023 Provid er: Diagnosis: Last Documented On 4 8:36AM By TRINH TEJADA ; [facility] HumaLOG KwikPen 100 UNIT/ML Subcutaneous Solution Pen-injector 07/28/2023 Provider: TOM Ma Diagnosis: 14 u with meals Last Documented On 4 8:36AM By TRINH TEJADA ; [facility] Folic Acid 1 MG Oral Tablet 05/19/2023 Provider: TOM LILLY M.D. Diagnosis: Deficiency of ot her specified B group vitamins One tablet daily Last Documented On 4 8:36AM By TRINH TEJADA ; [facility] Dexcom G6 Transmitter Miscellaneous 03/03/2023 Provider: TOM LILLY M.D. Diagnosis: Type 2 diabetes mellitus with hyperglycemia USE DIRECTED TO CHECK BLOOD SUGAR Last Documented On 4 8:36AM By TRINH TEJADA ; [facility] Veltassa 8.4 GM Oral Packet 12/10/2022 Provider: Diagnosis: once daily Last Documented On 4 8:36AM By TRINH TEJADA ; [facility] Aspirin Adult Low Dose 81 MG Oral Tablet Delayed Relea se 12/10/2022 Provider: Diagnosis: Last Documented On 4 8:36AM By TRINH TEJADA ; [facility] Global Ease Inject Pen Needl es 31G X 5 MM Miscellaneous 11/08/2022 Provider: TONY London Diagnosis: DIRECTED TEST THREE TIMES DAILY Last Documented On 4 8:36AM By TRINH TEJADA ; [facility] Vitamin D3 125 MCG (5000 UT) Oral Capsule 10/09/2022 Provider: OTM LILLY M.D. Diagnosis: Vitamin D defici ency, unspecified One tablet daily Last Documented On 4 8:36AM By TRINH TEJADA ; [facility] Vitamin B12 1000 MCG Oral Tablet 10/09/2022 Provider: TOM LILLY M.D. Diagnosis: Deficiency of ot her specified B group vitamins One tablet daily Last Documented On 4 8:36AM By TRINH TEJADA ; [facility] Medications Administered Includes: Administered Medications [...] Documented On 4 11:14AM ; [facility] Floxin Otic Allergy 07/26/2014 Active Last Documented On 4 11:14AM ; [facility] Farxiga Intolerance yeast vaginitis 12/24/2021 A ctive Last Documented On 4 11:14AM ; [facility] Demerol Allergy 07/26/2014 Active Last Documented On 4 11:14AM ; [facility] Cipro Allergy 07/26/2014 Active Last Documented On 4 11:14AM ; [facility] cephalexin Allergy 07/26/2014 Active Last Documented On 4 11:14AM ; [facility] Insurance Includes: Active Insurance Policies Plan Name Member ID Group # Subscriber Relationship Effect reynaldo Dates 1 - [facility] [id number] FAIZAN Webster 03/10/2023 - Unknown 2 - MEDICARE PART A CLAIMS/NGS [id number] FAIZAN Webster Clinical Notes Includes: Clinical Notes from this encounter No Clinical Notes Recorded
--- OUTSIDE RECORDS SUMMARY | 2024-06-08 17:45 | XMS_ITS | Clinical Summary ---
Author Organization [employer] [facility] Address [address] Attn: Epic [place] [address] Care Team Providers Care Septic Tank Service Technician Name Role Phone Unavailable Primary Care Provider Unavailabl e Medications amLODIPine (NORVASC) 10 mg tablet Take 1 Tablet (10 mg) by mouth daily. 90 Tablet 4 12:45 PM CDT 024 Active carvediloL (COREG) 25 mg tablet Take 1 Tablet (25 mg) by mouth 2 times daily. 180 Tablet 4 3:29 PM CDT 024 Active insulin glargine-yfgn 100 unit/mL vial Inject 60 units at bedtime 30 mL 2 4 2:26 PM THREAD SPOOLER 024 Active tirzepatide (Mounjaro) 2.5 mg/0.5 mL Pen Injector Inject 1 pen injector subcutaneously once a week. 2 mL 3 4 1:58 PM THREAD SPOOLER 024 Active ezetimibe (Zetia) 10 mg tablet Take 1 Tablet (10 mg) by mouth daily. 90 Tablet 5 4 1:58 PM THREAD SPOOLER 024 Active torsemide (DEMADEX) 10 mg Tablet Take 1 tablet by mouth daily 90 Tablet 5 6:48 PM THREAD SPOOLER 024 Active torsemide (DEMADEX) 20 mg tablet TAKE ONE TABLET DAILY ALONG WITH A 10 MG TO EQUAL 30 MG DAILY 30 Tablet 5 5 6:06 PM THREAD SPOOLER 025 Active insulin glargine-yfgn 100 unit/mL vial Inject 60 units at bedtime 30 mL 2 025 Active insulin lispro (HumaLOG,ADMEL OG) 100 unit/mL pen syringe INJECT 14 UNITS WITH MEALS 15 mL 2 5 3:26 PM THREAD SPOOLER 025 Active Insulin Syringe-Needle U-100 (BD Insulin Syringe Ultra-Fine) 1 mL 31 gauge x 5/16 Syringe USE FOR INSULIN INJECTIONS 200 Each 5 3:26 PM THREAD SPOOLER 025 Active ferrous sulfate 325 mg (65 mg iron) tablet Take 1 Tablet (325 mg) by mouth daily. 100 Tablet 5 3:26 PM THREAD SPOOLER 025 Active patiromer calcium sorbitex (Veltassa) 25.2 gram Powder in Packet powder Drink 1 packet dissolved in water once a day. Mix with 1/3 cup of water and drink daily. 30 Packet 11 025 Active patiromer calcium sorbitex (Veltassa) 16.8 gram Powder in Packet powder Drink 1 packet dissolved in water once a day. Mix with 1/3 cup of water and drink daily 30 Packet 11 5 3:26 PM THREAD SPOOLER 025 Active empagliflozin (JARDIANCE) 25 mg tablet Take 1 Tablet (25 mg) by mouth daily in the morning. 90 Tablet 5 3:26 PM THREAD SPOOLER 025 Active cefdinir (OMNICEF) 300 mg capsule Take 1 Capsule (300 mg) by mouth daily at 1400 3 Capsule 5 6:32 PM CDT 025 Active amLODIPine (NORVASC) 10 mg tablet Take 1 Tablet (10 mg) by mouth daily. 90 Tablet 1 5 6:03 PM CDT 025 Active Blood-Glucose Sensor (Dexcom G6 Sensor) Device CHANGE DIRECTED. 3 Each 5 6:03 PM CDT 025 Active Blood-Glucose Transmitter (Dexcom G6 Transmitter) Device CHANGE DIRECTED. 1 Each 5 6:03 PM CDT 025 Active insulin lispro (HumaLOG,ADMEL OG) 100 unit/mL pen syringe INJECT 14 UNITS WITH MEALS 15 mL 2 5 6:03 PM CDT 025 Active Insulin [place], Disposable, (BD Ultra-Fine Short Pen Needle) 31 gauge x 5/16 Needle USE WITH INSULIN PEN 100 Each 5 6:03 PM CDT 025 Active diazePAM (VALIUM) 10 mg tablet Take 1 Tablet (10 mg) by mouth 3 times daily as needed for anxiety. 84 Tablet 025 Active ergocalciferol (VITAMIN D2) 50,000 unit capsule Take 1 Capsule (50,000 Units) by mouth every 7 days. 13 Capsule 4 2:26 PM THREAD SPOOLER 024 2024 Discontinued amoxicillin (AMOXIL) 500 mg capsule Take 1 Capsule (500 mg) by mouth 3 times daily for 7 days. 21 Capsule 5 6:48 PM THREAD SPOOLER 025 2024 Discontinued benzonatate (TESSALON) 200 mg capsule Take 1 Capsule (200 mg) by mouth every 8 hours as needed for cough. 30 Capsule 5 6:48 PM THREAD SPOOLER 025 2024 Discontinued diazePAM (VALIUM) 10 mg tablet Take 1 Tablet (10 mg) by mouth 3 times daily for 14 days NEEDED FOR ANXIETY. 42 Tablet 5 6:32 PM CDT 025 2024 Encounters Date Type Department Care Team Description 05/26/2024 External Device Data [facility]CTION Provider, Abstract 05/19/2024 External Device Data [facility] Provider, Abstract 05/18/2024 External Device Data [facility] Provider, Abstract 05/15/2024 External Device Data [facility] Provider, Abstract 05/15/2024 External Device Data [facility] Provider, Abstract 05/12/2024 External Device Data [facility] Provider, Abstract 04/28/2024 External Device Data [facility] Provider, [...] of 3 - 19+ 3-dose series) 04/11 HPV/Cotest (21-29) 1995 CERVICAL CANCER SCREENING 2004 HPV/Cotest (30-65) 2004 PAP SMEAR 2004 BREAST CANCER SCREENING 2014 COLORECTAL SCREENING [...] ID:Not on file Type:Not on file Address: [address] [place] [address]
--- OUTSIDE RECORDS SUMMARY | 2024-06-08 17:45 | XMS_ITS ---
Author Organization [facility] Address [address] [place] [id number] Care Team Providers Care Fermenting Cellars Receiver Name Role Phone Kelvin MEMBRENO, Andres Primary Care Provider Rudy Moses Unavailable [phone] REASON FOR VISIT NO SHOW/RESCHEDULED MULTIPLE APPTS Encounters Encounter Location Date Provider Diagnosis [facility] [address] [id number] 06/24/2023 Rudy Veloz PLAN OF TREATMENT No Information
--- OUTSIDE RECORDS SUMMARY | 2024-06-08 17:46 | XMS_ITS ---
Care Plan - [facility] Created on: June 08, 2024 FAIZAN BEACH : 1975 Sex: Female Author Organization [facility] Address [address] [place] [address] Phone Care Team Providers Care Ventilated Rib Fitter Name Role Phone MAXX MEMBRENO, ИВАН Primary Care Provider [phone] MAXX Melgar, TOM Ac Unavailable [phone]
--- OUTSIDE RECORDS SUMMARY | 2024-06-08 17:46 | XMS_ITS | Clinical Summary ---
Author Organization [facility] Address [address] [facility] [place] [address] Phone Care Team Providers Care Therapeutic Recreation Specialist Name Role Phone ИВАН LILLY MD Primary Care Provider [phone] MAXX Melgar, TOM Acosta [phone] Reason for Visit and Chief Complaint WOUND CHECK - EST PATIENT Problems Includes: Problems addressed during this encounter and other active Problems All Visits Onset Date Resolved Date Provider Condition S tatus Diabetes Mellitus Type 2 07/14/2023 TOM LILLY M.D. Active Last Documented On 4 4:48PM ; [facility] Chronic Kidney Disease Stage 2 Due To Type 2 Diabetes Mellitus 06/30/2023 LAURA JOHN B C Active Last Documented On 4 1:29PM ; [facility] Hyperlipidemia Due To Type 2 Diabetes Mellitus 06/30/2023 LAURA MOSER Activ e Last Documented On 4 1:31PM ; [facility] Note: elevated crp Venous Insufficiency 06/30/2023 LAURA MOSER Active Last Documented On 4 1:30PM ; [facility] Iron Deficiency Anemia 02/11/2022 TOM INMAN M.D. Active Last Documented On 2 5:00PM ; [facility] Nonorganic Sleep Apnea Adult 05/21/2021 TOM LILLY M.D. Active Last Documented On 2 5:37PM ; [facility] Generalized Anxiety Disorder 02/05/2021 SCOOTER L MAURA DO Active Last Documented On 1 9:22AM ; [facility] Obesity Morbid 02/05/2021 SCOOTER Meagan SHAVERMAURA DO Ac tive Last Documented On 1 9:22AM ; [facility] Vitamin D Deficiency 05/24/2020 ARLEY HEATH MD Active Last Documented On 1 4:27PM ; [facility] Essential Hypertension 07/17/2015 CANDIS MANRIQUE MD Active Last Documented On 6 5:39PM ; [facility] Plan of Treatment Care Programs CHRONIC CARE MANAGMENT Last Documented On 1 11:07AM ; [facility] Assessments Includes: Assessments from this encounter No Assessments Recorded Medical Equipment - Implanted Devices Includes: Current Devices No Medical Equipment Recorded Medications Includes: Medications discussed during this encounter and other current Medications Current Medications (continue as prescribed) Diflucan 150 MG Oral Tablet 08/14/2023 Provider: TOM LILLY M.D. Diagnosis: One tablet daily Last Documented On 08/14/2023 11:36AM By ИВАН LILLY MD ; [facility] Sodium Bicarbonate 650 MG Oral Tablet 08/13/2023 Pro vider: Diagnosis: Last Documented On 08/13/2023 11:26AM By Marques MAGDALENO ; [facility] diazePAM 10 MG Oral Tablet 08/11/2023 Provider: TOM LILLY M.D. Diagnosis: Generalized anxi ety disorder TAKE 1 TABLET BY MOUTH THREE TIMES DAILY Last Documented On 08/11/2023 8:59AM By ИВАН LILLY MD ; [facility] amLODIPine Besylate 10 MG Oral Tablet 08/10/2023 Provider: TOM LILLY M.D. Diagnosis: Essential (prima ry) hypertension TAKE 1 TABLET BY MOUTH EVERY DAY Last Documented On 08/10/2023 9:13PM By ИВАН LILLY MD ; [facility] Jardiance 25 MG Oral Tablet 08/10/2023 Provider: TOM LILLY M.D. Diagnosis: Type 2 diabetes mellitus with hyperglycemia One tablet daily Last Documented On 08/10/2023 9:13PM By ИВАН LILLY MD ; [facility] Torsemide 10 MG Oral Tablet 08/09/2023 Provider: VIRGILIO SAENZ MD Diagnosis: Last Documented On 08/13/2023 11:26AM By Marques MAGDALENO ; [facility] metOLazone 2.5 MG Oral Tablet 08/08/2023 Provider: HARPER FISHER MD Diagnosis: Last Documented On 08/13/2023 11:26AM By Marques MAGDALENO ; [facility] BD Pen Needle Mini U/F 31G X 5 MM Miscellaneous 08/07/2023 Provider: TOM Diaz Diagnosis: Type 2 diabetes mellitus without complications as directed Last Documented On 08/07/2023 11:48AM By ИВАН LILLY MD ; [facility] Basaglar KwikPen 100 UNIT/ML Subcutaneous Solution Pen-injector 07/31/2023 Provider: TOM Ma Diagnosis: 40 u at night Last Documented On 4 8:36AM By TRINH TEJADA ; [facility] FeroSul 325 (65 Fe) MG Oral Tablet 07/31/2023 Provid er: Diagnosis: Last Documented On 4 8:36AM By TRINH TEJADA ; [facility] HumaLOG KwikPen 100 UNIT/ML Subcutaneous Solution Pen-injector 07/28/2023 Provider: TOM Ma Diagnosis: 14 u with meals Last Documented On 4 8:36AM By TRINH TEJADA ; [facility] Folic Acid 1 MG Oral Tablet 05/19/2023 Provider: TOM LILLY M.D. Diagnosis: Deficiency of ot her specified B group vitamins One tablet daily Last Documented On 4 8:36AM By TRINH TEJADA ; [facility] Dexcom G6 Transmitter Miscellaneous 03/03/2023 Provider: TOM LILLY M.D. Diagnosis: Type 2 diabetes mellitus with hyperglycemia USE DIRECTED TO CHECK BLOOD SUGAR Last Documented On 4 8:36AM By TRINH TEJADA ; [facility] Veltassa 8.4 GM Oral Packet 12/10/2022 Provider: Diagnosis: once daily Last Documented On 4 8:36AM By TRINH TEJADA ; [facility] Aspirin Adult Low Dose 81 MG Oral Tablet Delayed Relea se 12/10/2022 Provider: Diagnosis: Last Documented On 4 8:36AM By TRINH TJEADA ; [facility] Global Ease Inject Pen Needl es 31G X 5 MM Miscellaneous 11/08/2022 Provider: TONY [place] Diagnosis: DIRECTED TEST THREE TIMES DAILY Last Documented On 4 8:36AM By TRINH TEJADA ; [facility] Vitamin D3 125 MCG (5000 UT) Oral Capsule 10/09/2022 Provider: TOM LILLY M.D. Diagnosis: Vitamin D defici ency, unspecified One tablet daily Last Documented On 4 8:36AM By TRINH TEJADA ; [facility] Vitamin B12 1000 MCG Oral Tablet 10/09/2022 Provider: TOM LILLY M.D. Diagnosis: Deficiency of ot her specified B group vitamins One tablet daily Last Documented On 4 8:36AM By TRINH TEJADA ; [facility] Medications Administered Includes: Administered Medications [...] tive Last Documented On 4 11:14AM ; [facility] Floxin Otic Allergy 07/26/2014 Active Last Documented On 4 11:14AM ; [facility] Farxiga Intolerance yeast vaginitis 12/24/2021 A ctive Last Documented On 4 11:14AM ; [facility] Demerol Allergy 07/26/2014 Active Last Documented On 4 11:14AM ; [facility] Cipro Allergy 07/26/2014 Active Last Documented On 4 11:14AM ; [facility] cephalexin Allergy 07/26/2014 Active Last Documented On 4 11:14AM ; [facility] Encounters Encounter Provider Location Date Check-In Time Check- Out Time Diagnosis WOUND CHECK - EST PATIENT JULIANO MARTINEZ DO [facility] 4 3:00PM 3:20PM Insurance Includes: Active Insurance Policies Plan Name Member ID Group # Subscriber Relationship Effect reynaldo Dates 1 - [facility] [id number] FAIZAN Webster 03/10/2023 - Unknown 2 - MEDICARE PART A CLAIMS/NGS [id number] FAIZAN Webster Clinical Notes Includes: Clinical Notes from this encounter No Clinical Notes Recorded
[2024-06-08 17:53] LABS: Basophils Percent Auto 0.6 % (0.2-1.2); Eosinophils Absolute Auto 0.7 K/mm3 (0-0.3); Eosinophils Percent Auto 10.9 % (0-4.4); Hematocrit 26.5 % (37.0-47.0); Hemoglobin 8.6 g/dL (12.0-15.0); Immature Granulocyte Absolute 0.02 K/mm3 (0.00-0.031); Immature Granulocyte Percent A 0.3 % (0-0.5); Lymphocytes Absolute Auto 1.04 K/mm3 (0.9-3.2); Lymphocytes Percent Auto 16.7 % (18.3-44.2); Mean Corpuscular HGB Conc 32.5 g/dl (32-36); Mean Corpuscular Hemoglobin 29.7 pg (26-34); Mean Corpuscular Volume 91.4 fl (80-100); Mean Platelet Volume 10.1 fl (7.4-10.4); Monocytes Absolute Auto 0.4 K/mm3 (0.1-0.6); Monocytes Percent Auto 6.3 % (2.6-8.5); Neutrophils Absolute Auto 4.1 K/mm3 (1.3-6.7); Neutrophils Percent Auto 65.2 % (45.5-73.1); Platelet Count Result 257 k/mm3 (150-375); Red Cell Distribution Width 13.1 % (11.5-14.5); White Blood Count 6.2 K/mm3 (4.5-10.0)
[2024-06-08 18:05] LABS: Anion Gap 7 mmol/L (4-12); Blood Urea Nitrogen 39 mg/dL (7-17); Carbon Dioxide 23 mmol/L (22-30); Chloride 107 mmol/L (98-107); Estimated Glomerular Filt Rate 16; Glucose 190 mg/dL (65-110); Potassium 4.8 mmol/L (3.4-5.0); Sodium 137 mmol/L (137-145)
== END 2024-06-08 17:36 | disposition home or self-care (01) ==
LOC: ANHLAB 17:37
PROVIDERS: Visit Provider Internal Medicine
DX: N18.9 Chronic kidney disease, unspecified (principal); D64.9 Anemia, unspecified
CPT/HCPCS: 36415; 80048; 85025

== ENCOUNTER 2024-06-15 16:48 | Outpatient (CLI) | payer OTHER, SELFPAY ==
--- OUTSIDE RECORDS SUMMARY | 2024-06-15 17:10 | XMS_ITS | Clinical Summary ---
Author Organization [facility] [employer] [facility] [employer] [facility] Address [address] [address] Phone Care Team Providers Care Image Consultant Name Role Phone Matias Warren MD Primary Care Provider [phone] Allergies Active Allergy Reactions Criticality Noted Date [...] time each day Active ergocalciferol 1.25 MG (18629 UT) capsule Take 50,000 Units by mouth [...] Exam 07/26/2023 Diabetes: Hemoglobin A1C 10/21/2023 07/21/2023, 07/08 Influenza Vaccine (Season Ended) 2024 12/06/19 Procedures Procedure Name Priority Date/Time Associated Diagnosis [...] 8.6(A) 8.7 - 10.7 mg/dL eGFR Non-Afr [place]es 25(L) Hemoglobin A1C 8.5(A) 4.0 - 6.0 Glucose, UA 4+ mg/dL Bilirubin, UA Negative Ketones, UA Negative Urine Specific [place] 1.015 Blood, UA 3+ Randy/ul pH, UA [...] Recently Relevant to Health Maintenance Insurance MEDICARE [facility] Care Teams Image Consultant Relationship Specialty Start Date End Date Matias Warren MD [address] [place], [place] [id number] PCP - General Internal Medicine 07/24/23
--- OUTSIDE RECORDS SUMMARY | 2024-06-15 17:10 | XMS_ITS | Clinical Summary ---
Author Organization [facility] Address [address] [place] [address] Phone Care Team Providers Care Recovery Operator Name Role Phone ИВАН LILLY MD Primary Care Provider [phone] MAXX Melgar, TOM Acosta [phone] Reason for Visit and Chief Complaint [Patient Encounter] Problems Includes: Problems addressed during this encounter and other active Problems All Visits Onset Date Resolved Date Provider Condition S tatus Diabetes Mellitus Type 2 07/14/2023 TOM LILLY M.D. Active Last Documented On 4 4:48PM ; [facility] Chronic Kidney Disease Stage 2 Due To Type 2 Diabetes Mellitus 06/30/2023 LAURA FONTENOT RN AVA B C Active Last Documented On 4 1:29PM ; [facility] Hyperlipidemia Due To Type 2 Diabetes Mellitus 06/30/2023 LAURA FONTENOT RN AVA BC Activ e Last Documented On 4 1:31PM ; [facility] Note: elevated crp Venous Insufficiency 06/30/2023 LAURA MOSER Active Last Documented On 4 1:30PM ; [facility] Iron Deficiency Anemia 02/11/2022 TOM INMAN M.D. Active Last Documented On 2 5:00PM ; [facility] Nonorganic Sleep Apnea Adult 05/21/2021 TOM LILLY M.D. Active Last Documented On 2 5:37PM ; [facility] Generalized Anxiety Disorder 02/05/2021 SCOOTER L MAURA DO Active Last Documented On 1 9:22AM ; [facility] Obesity Morbid 02/05/2021 SCOOTER Meagan SHAVERMAURA DO Ac tive Last Documented On 1 9:22AM ; [facility] Vitamin D Deficiency 05/24/2020 ARLEY HEATH MD Active Last Documented On 1 4:27PM ; [facility] Essential Hypertension 07/17/2015 CANDIS MANRIQUE MD Active Last Documented On 6 5:39PM ; [facility] Plan of Treatment Care Programs CHRONIC CARE MANAGMENT Last Documented On 1 11:07AM ; [facility] Assessments Includes: Assessments from this encounter [...] ИВАН LILLY MD ; [facility] Sodium Bicarbonate 650 MG Oral Tablet 08/13/2023 Pro vider: Diagnosis: Last Documented On 08/13/2023 11:26AM By Marques MAGDALENO ; [facility] diazePAM 10 MG Oral Tablet 08/11/2023 Provider: TOM LILLY M.D. Diagnosis: Generalized anxi ety disorder TAKE 1 TABLET BY MOUTH THREE TIMES DAILY Last Documented On 08/11/2023 8:59AM By ИВАН LILLY MD ; [facility] amLODIPine Besylate 10 MG Oral Tablet 08/10/2023 Provider: TOM LILLY M.D. Diagnosis: Essential (prima ry) hypertension TAKE 1 TABLET BY MOUTH EVERY DAY Last Documented On 08/10/2023 9:13PM By ИВАН LILLY MD ; [facility] Jardiance 25 MG Oral Tablet 08/10/2023 Provider: TOM LILLY M.D. Diagnosis: Type 2 diabetes mellitus with hyperglycemia One tablet daily Last Documented On 08/10/2023 9:13PM By ИВАН LILLY MD ; [facility] Torsemide 10 MG Oral Tablet 08/09/2023 Provider: VIRGILIO SAENZ MD Diagnosis: Last Documented On 08/13/2023 11:26AM By Marques MAGDALENO ; [facility] metOLazone 2.5 MG Oral Tablet 08/08/2023 Provider: HARPER FISHER MD Diagnosis: Last Documented On 08/13/2023 11:26AM By Marques MAGDALENO ; [facility] BD Pen Needle Mini U/F 31G X 5 MM Miscellaneous 08/07/2023 Provider: TOM Diaz Diagnosis: Type 2 diabetes mellitus without complications as directed Last Documented On 08/07/2023 11:48AM By ИВАН LILLY MD ; [facility] Basaglar KwikPen 100 UNIT/ML Subcutaneous Solution Pen-injector 07/31/2023 Provider: TOM Ma Diagnosis: 40 u at night Last Documented On 4 8:36AM By TRINH TEJADA ; [facility] FeroSul 325 (65 Fe) MG Oral Tablet 07/31/2023 Provid er: Diagnosis: Last Documented On 4 8:36AM By TRINH TEJADA ; [facility] HumaLOG KwikPen 100 UNIT/ML Subcutaneous Solution Pen-injector 07/28/2023 Provider: TOM Ma Diagnosis: 14 u with meals Last Documented On 4 8:36AM By TRINH TEJADA ; [facility] Folic Acid 1 MG Oral Tablet 05/19/2023 Provider: TOM LILLY M.D. Diagnosis: Deficiency of ot her specified B group vitamins One tablet daily Last Documented On 4 8:36AM By TRINH TEJADA ; [facility] Dexcom G6 Transmitter Miscellaneous 03/03/2023 Provider: TOM LILLY M.D. Diagnosis: Type 2 diabetes mellitus with hyperglycemia USE DIRECTED TO CHECK BLOOD SUGAR Last Documented On 4 8:36AM By TRINH TEJADA ; [facility] Veltassa 8.4 GM Oral Packet 12/10/2022 Provider: Diagnosis: once daily Last Documented On 4 8:36AM By TRINH TEJADA ; [facility] Aspirin Adult Low Dose 81 MG Oral Tablet Delayed Relea se 12/10/2022 Provider: Diagnosis: Last Documented On 4 8:36AM By TRINH TEJADA ; [facility] Global Ease Inject Pen Needl es 31G X 5 MM Miscellaneous 11/08/2022 Provider: TONY London Diagnosis: DIRECTED TEST THREE TIMES DAILY Last Documented On 4 8:36AM By TRINH TEJADA ; [facility] Vitamin D3 125 MCG (5000 UT) Oral Capsule 10/09/2022 Provider: TOM LILLY M.D. Diagnosis: Vitamin D defici ency, unspecified One tablet daily Last Documented On 4 8:36AM By TRINH TEJADA ; [facility] Vitamin B12 1000 MCG Oral Tablet 10/09/2022 Provider: TOM LILLY M.D. Diagnosis: Deficiency of ot her specified B group vitamins One tablet daily Last Documented On 4 8:36AM By TRINH TEJADA ; [facility] Medications Administered Includes: Administered Medications from [...] On 4 11:14AM ; [facility] Floxin Otic Allergy 07/26/2014 Active Last Documented On 4 11:14AM ; [facility] Farxiga Intolerance yeast vaginitis 12/24/2021 A ctive Last Documented On 4 11:14AM ; [facility] Demerol Allergy 07/26/2014 Active Last Documented On 4 11:14AM ; [facility] Cipro Allergy 07/26/2014 Active Last Documented On 4 11:14AM ; [facility] cephalexin Allergy 07/26/2014 Active Last Documented On 4 11:14AM ; [facility] Encounters Encounter Provider Location Date Check-In Time Check-Out Time Diagnosis [Patient Encounter] TOM LILLY M.D. 04/15/2024 4:37PM 11:59PM Insurance Includes: Active Insurance Policies Plan Name Member ID Group # Subscriber Relationship Effect reynaldo Dates 1 - [facility] [id number] FAIZAN Wesbter 03/10/2023 - Unknown 2 - MEDICARE PART A CLAIMS/NGS [id number] FAIZAN Webster Clinical Notes Includes: Clinical Notes from this encounter No Clinical Notes Recorded
--- OUTSIDE RECORDS SUMMARY | 2024-06-15 17:11 | XMS_ITS | Clinical Summary ---
Author Organization [facility] Address [address] [place] [address] Phone Care Team Providers Care Steward/Stewardess Second Name Role Phone ИВАН LILLY MD Primary Care Provider [phone] MAXX Melgar, TOM Acosta [phone] Reason for Visit and Chief Complaint visit [...] Documented On 4 4:48PM ; [facility] Chronic Kidney Disease Stage 2 Due To Type 2 Diabetes Mellitus 06/30/2023 LAURA JOHN B C Active Last Documented On 4 1:29PM ; [facility] Hyperlipidemia Due To Type 2 Diabetes Mellitus 06/30/2023 LAURA JOHN BC Activ e Last Documented On 4 1:31PM ; [facility] Note: elevated crp Kidney Atrophy Left 06/30/2023 TOM LILLY M.D. Inactive Last Documented On 4 1:28PM ; [facility] Venous Insufficiency 06/30/2023 LAURA MOSER Active Last Documented On 4 1:30PM ; [facility] Iron Deficiency Anemia 02/11/2022 TOM S DIZ ON M.D. Active Last Documented On 2 5:00PM ; [facility] Nonorganic Sleep Apnea Adult 05/21/2021 TOM LILLY M.D. Active Last Documented On 2 5:37PM ; [facility] Generalized Anxiety Disorder 02/05/2021 SCOOTER Meagan MAURA DO Active Last Documented On 1 9:22AM ; [facility] Obesity Morbid 02/05/2021 SCOOTER L MAURA DO Ac tive Last Documented On 1 9:22AM ; [facility] Iron Deficiency Anemia 05/24/2020 02/05/2021 TOM LUNA ON M.D. Resolved Last Documented On 1 9:17AM ; [facility] Vitamin D Deficiency 05/24/2020 ARLEY HEATH MD Active Last Documented On 1 4:27PM ; [facility] Essential Hypertension 07/17/2015 CANDIS MANRIQUE MD Active Last Documented On 6 5:39PM ; [facility] Plan of Treatment - Return to the clinic if condition worsens or new symptoms arise - Last Documented On 08/13/2023 1:34PM ; [facility] - Continue current medication - Last Documented On 08/13/2023 1:34PM ; [facility] - Modify drug dosage Inc Jardiance to 25 mg a day - Last Documented On 08/13/2023 1:34PM ; [facility] Inc Basaglar to 30 u 2 x a day - Patient to call if problem develops - Last Documented On 08/13/2023 1:34PM ; [facility] Care Programs CHRONIC CARE MANAGMENT Last Documented On 1 11:07AM ; [facility] Assessments Includes: Assessments from this encounter Findings - I10 - Essential (primary) hypertension - Last Documented On 08/13/2023 1:34PM ; [facility] - I10 - Essential (primary) hypertension - Last Documented On 08/13/2023 1:34PM ; [facility] - I87.2 - Venous insufficiency (chronic) (peripheral) - Last Documented On 08/13/2023 1:34PM ; [facility] - I87.2 - Venous insufficiency (chronic) (peripheral) - Last Documented On 08/13/2023 1:34PM ; [facility] - G47.30 - Sleep apnea, unspecified - Last Documented On 08/13/2023 1:34PM ; [facility] - G47.30 - Sleep apnea, unspecified - Last Documented On 08/13/2023 1:34PM ; [facility] - 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) - Last Documented On 08/13/2023 1:34PM ; [facility] - N18.2 - Chronic kidney disease, stage 2 (mild) - Last Documented On 08/13/2023 1:34PM ; [facility] - N18.2 - Chronic kidney disease, stage 2 (mild) - Last Documented On 08/13/2023 1:34PM ; [facility] - E78.5 - Hyperlipidemia, unspecified - Last Documented On 08/13/2023 1:34PM ; [facility] - E78.5 - Hyperlipidemia, unspecified - Last Documented On 08/13/2023 1:34PM ; [facility] - E55.9 - Vitamin D deficiency, unspecified - Last Documented On 08/13/2023 1:34PM ; [facility] - E55.9 - Vitamin D deficiency, unspecified - Last Documented On 08/13/2023 1:34PM ; [facility] - E66.8 - Other obesity - Last Documented On 08/13/2023 1:34PM ; [facility] - E66.8 - Other obesity - Last Documented On 08/13/2023 1:34PM ; [facility] - E11.9 - Type 2 diabetes mellitus without complications - Last Documented On 08/13/2023 1:34PM ; [facility] - E11.9 - Type 2 diabetes mellitus without complications - Last Documented On 08/13/2023 1:34PM ; [facility] - F41.1 - Generalized anxiety disorder - Last Documented On 08/13/2023 1:34PM ; [facility] - F41.1 - Generalized anxiety disorder - Last Documented On 08/13/2023 1:34PM ; [facility] - D50.9 - Iron deficiency anemia, unspecified - Last Documented On 08/13/2023 1:34PM ; [facility] - D50.9 - Iron deficiency anemia, unspecified - Last Documented On 08/13/2023 1:34PM ; [facility] Medical Equipment - Implanted Devices Includes: Current Devices No Medical Equipment Recorded Medications Includes: Medications discussed during this encounter and other current Medications Discontinued / Stopped on this date on 07/31/2023 Sodium Bicarbonate 650 MG Oral Tablet Pro vider: Diagnosis: Last Documented On 08/13/2023 1:29PM By ИВАН LILLY MD ; [facility] Amoxicillin-Pot Clavulanate 875-125 MG Oral Tablet Provider: NONI OSORIO V[employer]LEYBALL PLAYER-B C Diagnosis: Last Documented On 08/13/2023 11:21AM By ИВАН LILLY MD ; [facility] Torsemide 5 MG Oral Tablet Provider: Meagan LILLY M.D. Diagnosis: Last Documented On 08/13/2023 1:29PM By ИВАН LILLY MD ; [facility] Current Medications (continue as prescribed) Diflucan 150 MG Oral Tablet 08/14/2023 Provider: TOM LILLY M.D. Diagnosis: One tablet daily Last Documented On 08/14/2023 11:36AM By ИВАН LILLY MD ; [facility] Sodium Bicarbonate 650 MG Oral Tablet 08/13/2023 Pro vider: Diagnosis: Last Documented On 08/13/2023 11:26AM By Marques MAGDALENO ; [facility] diazePAM 10 MG Oral Tablet 08/11/2023 Provider: TOM LILLY M.D. Diagnosis: Generalized anxi ety disorder TAKE 1 TABLET BY MOUTH THREE TIMES DAILY Last Documented On 08/11/2023 8:59AM By ИВАН LILLY MD ; [facility] amLODIPine Besylate 10 MG Oral Tablet 08/10/2023 Provider: TOM LILLY M.D. Diagnosis: Essential (prima ry) hypertension TAKE 1 TABLET BY MOUTH EVERY DAY Last Documented On 08/10/2023 9:13PM By ИВАН LILLY MD ; [facility] Jardiance 25 MG Oral Tablet 08/10/2023 Provider: TOM LILLY M.D. Diagnosis: Type 2 diabetes mellitus with hyperglycemia One tablet daily Last Documented On 08/10/2023 9:13PM By ИВАН LILLY MD ; [facility] Torsemide 10 MG Oral Tablet 08/09/2023 Provider: VIRGILIO SAENZ MD Diagnosis: Last Documented On 08/13/2023 11:26AM By Marques MAGDALENO ; [facility] metOLazone 2.5 MG Oral Tablet 08/08/2023 Provider: HARPER RIVERA MD Diagnosis: Last Documented On 08/13/2023 11:26AM By Marques MAGDALENO ; [facility] BD Pen Needle Mini U/F 31G X 5 MM Miscellaneous 08/07/2023 Provider: TOM Diaz Diagnosis: Type 2 diabetes mellitus without complications as directed Last Documented On 08/07/2023 11:48AM By ИВАН LILLY MD ; [facility] Basaglar KwikPen 100 UNIT/ML Subcutaneous Solution Pen-injector 07/31/2023 Provider: TOM Ma Diagnosis: 40 u at night Last Documented On 4 8:36AM By TRINH TEJADA ; [facility] FeroSul 325 (65 Fe) MG Oral Tablet 07/31/2023 Provid er: Diagnosis: Last Documented On 4 8:36AM By TRINH TEJADA ; [facility] HumaLOG KwikPen 100 UNIT/ML Subcutaneous Solution Pen-injector 07/28/2023 Provider: TOM Ma Diagnosis: 14 u with meals Last Documented On 4 8:36AM By TRINH TEJADA ; [facility] Folic Acid 1 MG Oral Tablet 05/19/2023 Provider: TOM LILLY M.D. Diagnosis: Deficiency of ot her specified B group vitamins One tablet daily Last Documented On 4 8:36AM By TRINH TEJADA ; [facility] Dexcom G6 Transmitter Miscellaneous 03/03/2023 Provider: TOM LILLY M.D. Diagnosis: Type 2 diabetes mellitus with hyperglycemia USE DIRECTED TO CHECK BLOOD SUGAR Last Documented On 4 8:36AM By TRINH TEJADA ; [facility] Veltassa 8.4 GM Oral Packet 12/10/2022 Provider: Diagnosis: once daily Last Documented On 4 8:36AM By TRINH TEJADA ; [facility] Aspirin Adult Low Dose 81 MG Oral Tablet Delayed Relea se 12/10/2022 Provider: Diagnosis: Last Documented On 4 8:36AM By TRINH TEJADA ; [facility] Global Ease Inject Pen Needl es 31G X 5 MM Miscellaneous 11/08/2022 Provider: TONY [place] Diagnosis: DIRECTED TEST THREE TIMES DAILY Last Documented On 4 8:36AM By TRINH TEJADA ; [facility] Vitamin D3 125 MCG (5000 UT) Oral Capsule 10/09/2022 Provider: TOM LILLY M.D. Diagnosis: Vitamin D defici ency, unspecified One tablet daily Last Documented On 4 8:36AM By TRINH TEJADA ; [facility] Vitamin B12 1000 MCG Oral Tablet 10/09/2022 Provider: TOM LILLY M.D. Diagnosis: Deficiency of ot her specified B group vitamins One tablet daily Last Documented On 4 8:36AM By TRINH TEJADA ; [facility] Past Medications on file Carvedilol 25 MG Oral Tablet 07/01/2023 - 09/29/2023 Provider: TOM LILLY M.D. Diagnosis: Essential (prima ry) hypertension TAKE 1 TABLET BY MOUTH TWICE DAILY Last Documented On 4 8:36AM By TRINH TEJADA ; [facility] Dexcom G6 Sensor Miscellaneous 08/07/2022 - 02/03/2023 Provider: TOM LILLY M.D. Diagnosis: Type 2 diabetes mellitus with hyperglycemia change every 10 days as directedDX E11.65 Last Documented On 3 1:21PM By NIKOLAI MAGDALENO ; [facility] Medications Administered Includes: Administered Medications [...] Last Documented: On 08/13/2023 11:23A M ; [facility] Results Includes: Results discussed during this encounter CBC WITH DIFF [facility] La boratory Ordered by TRINH FLORES RN-FPA, V[employer]LEYBALL PLAYER-BC on 07/31/2023 [address] [facility] [address] [place], [address] Collected: 07/31/2023 Report ed: 07/31/2023 12:57 tel: Last Documented On 4 9:10AM ; [facility] Reviewed by TRINH UNGER-JORDYN, VOLLEYBALL PLAYER-BC on 08/06/2023; All test results are final unless otherwise noted. ALC 1.5 None Last Documented On 4 10:18PM ; [facility] Note: Responsible Observer: ([place] ANC 5.8 None Last Documented On 4 10:18PM ; [facility] Note: Responsible Observer: [place] BASO# 0.05 th/uL (0.00 - 0.20) None Last Documented On 4 10:18PM ; [facility] Note: Responsible Observer: [place] BASO% 0.6 % (0.0 - 2.0) None Last Documented On 4 10:18PM ; [facility] Note: Responsible Observer: [place] CBC WITH DIFF See Note None Last Documented On 4 10:18PM ; [facility] Note: CBC (COMPLETE BLOOD COUNT)Respons[place] ble Observer: [place] DIFF (Y/N) NO None Last Documented On 4 10:18PM ; [facility] Note: Responsible Observer: [place] EOS# 0.54 th/uL (0.00 - 0.45) H (High) Last Documented On 4 10:18PM ; [facility] Note: Responsible Observer: [place] EOS% 6.3 % (0.0 - 9.0) None Last Documented On 4 10:18PM ; [facility] Note: Responsible Observer: [place] HCT 27.3 % (38.0 - 47.0) L (Low) Last Documented On 4 10:18PM ; [facility] Note: Responsible Observer: [place] HGB 9.0 g/dL (12.0 - 16.0) L (Low) Last Documented On 4 10:18PM ; [facility] Note: Responsible Observer: [place] IG# 0.06 th/ul (0.00 - 0.10) None Last Documented On 4 10:18PM ; [facility] Note: Responsible Observer: [place] IG% 0.7 % (0.0 - 0.5) H (High) Last Documented On 4 10:18PM ; [facility] Note: Responsible Observer: [place] LYMPH# 1.49 th/uL (1.00 - 4.80) None Last Documented On 4 10:18PM ; [facility] Note: Responsible Observer: [place] LYMPH% 17.4 % (14.0 - 45.0) None Last Documented On 4 10:18PM ; [facility] Note: Responsible Observer: [place] MCH 28.1 pg (25.0 - 35.0) None Last Documented On 4 10:18PM ; [facility] Note: Responsible Observer: [place] MCHC 33.0 g/dL (31.0 - 36.0) None Last Documented On 4 10:18PM ; [facility] Note: Responsible Observer: [place] MCV 85.3 fl (80.0 - 100) None Last Documented On 4 10:18PM ; [facility] Note: Responsible Observer: [place] MONO# 0.53 th/uL (0.00 - 0.80) None Last Documented On 4 10:18PM ; [facility] Note: Responsible Observer: [place] MONO% 6.2 % (1.0 - 10.0) None Last Documented On 4 10:18PM ; [facility] Note: Responsible Observer: [place] MPV 10.3 fl (6.0 - 11.0) None Last Documented On 4 10:18PM ; [facility] Note: Responsible Observer: [place] NEUT# 5.87 th/uL None Last Documented On 4 10:18PM ; [facility] Note: Responsible Observer: [place] NEUT% 68.8 % (45.0 - 76.0) None Last Documented On 4 10:18PM ; [facility] Note: Responsible Observer: [place] NRBC% 0.0 % (0.0 - 0.0) None Last Documented On 4 10:18PM ; [facility] Note: Responsible Observer: [place] PLT 332 th/uL (150 - 400) None Last Documented On 4 10:18PM ; [facility] Note: Responsible Observer: [place] RBC 3.20 mil/uL (4.50 - 5.90) L (Low) Last Documented On 4 10:18PM ; [facility] Note: Responsible [place]: [place] RDW 15.1 % (11.0 - 16.0) None Last Documented On 4 10:18PM ; [facility] Note: Responsible Observer: [place] WBC 8.5 th/uL (4.5 - 11.0) None Last Documented On 4 10:18PM ; [facility] Note: Responsible Observer: ([place] .BB CROSSMATCH 1 UNIT (LAB ONLY) [facility] Laboratory Ordered by BALDO RG PA-C on 07/16/[address] [place] [address], [place], [address] Collected: 07/19/2023 Report ed: 07/19/2023 15:30 tel: Last Documented On 4 1:29PM ; [facility] Reviewed by TOM LILLY M.D. on 08/13/2023; All test results are final unless otherwise noted. .BB CROSSMATCH 1 UNIT (LAB ONLY) See Note None Last Documented On 08/05/2023 10:16PM ; [facility] Note: [id number] UNDoREQUEST FOR BLOOD OR BLOOD COMPONENTUNDx Patient's Arm Band Number _[id number] 07/19/23.TER.A PositiveResponsible Observer: (MEGAN) Antibody Screen None Detected None Last Documented On 08/05/2023 10:16PM ; [facility] Note: Antibody ID: Responsible Observer: (MEGAN) Crossmatch Compatible None Last Documented On 08/05/2023 10:16PM ; [facility] Note: Donor Unit Number _[id number] 07/19/23.TER. CMV NEGATIVE? _N 07/19/23.TER. IRRADIATED? _N 07/19/23.TER. TIME DATE BLOOD BANK SIGNATURE PICKED UP FROM LAB CHECKED WITH ADMINISTERED BY IDENTIFICATION NUMBER BLOOD TYPE AND Rh OF RECIPIENT AND UNIT OF BLOOD AGREE YES --------- NO ---------Responsible Observer: GARRICK) Donor's Type A Positive None Last Documented On 08/05/2023 10:16PM ; [facility] Note: Donor Expiration Date _08/19/2023 [...] 08/13/2023 Last Documented On 4 1:34PM ; [facility] DME in home: wheelchair 08/13/2023 Last Documented On 4 1:34PM ; [facility] Soc Hx: works as [employer] on disability. . No alcohol, drugs, tobacco, vaping. Diet: regular. Exercise: none 06/30/2023 Last Documented On 4 11:14AM ; [facility] A high-sugar diet 06/30/2023 Last Documented On 4 11:14AM ; [facility] Amount of sleep 06/30/2023 Last Documented On 4 11:14AM ; [facility] Current nonsmoker 06/30/2023 Last Documented On 4 11:14AM ; [facility] Diet needs improvement 06/30/2023 Last Documented On 4 11:14AM ; [facility] Eats breakfast regularly 06/30/2023 Last Documented On 4 11:14AM ; [facility] Exercising regularly 06/30/2023 Last Documented On 4 11:14AM ; [facility] Former smoker 06/30/2023 Last Documented On 4 11:14AM ; [facility] Frequency of meals 06/30/2023 Last Documented On 4 11:14AM ; [facility] Frequent high carbohydrate meals 024 Last Documented On 4 11:14AM ; [facility] Good exercise habits 06/30/2023 Last Documented On 4 11:14AM ; [facility] Lives with spouse 06/30/2023 Last Documented On 4 11:14AM ; [facility] Marital history 06/30/2023 Last Documented On 4 11:14AM ; [facility] Missing meals 06/30/2023 Last Documented On 4 11:14AM ; [facility] No caffeine use 06/30/2023 Last Documented On 4 11:14AM ; [facility] No consumption of alcohol 06/30/2023 Last Documented On 4 11:14AM ; [facility] No tobacco use 06/30/2023 Last Documented On 4 11:14AM ; [facility] No travel 06/30/2023 Last Documented On 4 11:14AM ; [facility] Non-smoker 06/30/2023 Last Documented On 4 11:14AM ; [facility] Not a current smoker 06/30/2023 Last Documented On 4 11:14AM ; [facility] Not using drugs 06/30/2023 Last Documented On 4 11:14AM ; [facility] Nutritional quality of diet 06/30/2023 Last Documented On 4 11:14AM ; [facility] 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 06/29 Last Documented On 4 11:14AM ; [facility] Sexually active 06/30/2023 Last Documented On 4 11:14AM ; [facility] Stopped smoking years ago 1996 4 Last Documented On 4 11:14AM ; [facility] Work history 06/30/2023 Last Documented On 4 11:14AM ; [facility] 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 Last Documented On 4 11:14AM ; [facility] Sexually active with 1 partners in the l ast year 06/30/2023 Last Documented On 4 11:14AM ; [facility] Currently 02/22/2020 Last Documented On 4 11:14AM ; [facility] No work-related circumstances 02/22/2020 Last Documented On 4 11:14AM ; [facility] Not using alcohol 02/22/2020 Last Documented On 4 11:14AM ; [facility] Smoking Status Unknown Procedures and Surgical History Includes: Procedures from this encounter Procedures Code Diagnosis Performing Provider Service L ocation Service Date use of tobacco assessment performed 1000F Last Documented On 4 11:23AM ; [facility] standardized depression screening: negative for symptoms 3351F Last Documented On 4 11:14AM ; [facility] review of medications documented 1160F Last Documented On 4 11:23AM ; [facility] assessment of suicide risk performed Last Documented On 4 11:14AM ; [facility] screening for adult depression: impressi on and score three Last Documented On 4 11:14AM ; [facility] Surgical History Last Updated Prior surgery Csectionx3 05/21/2021 Last Documented On 4 11:14AM ; [facility] History of section 02/02/2021 Last Documented On 4 11:14AM ; [facility] History of tubal ligation 2002 5 Last Documented On 4 11:14AM ; [facility] Surgical / procedural history c section x 3 1991,1993, and 200207/26/2014 Last Documented On 4 11:14AM ; [facility] Medical History Includes: Medical History addressed during this encounter Description Last Updated Vaccine history 07/31/2023 Last Documented On 4 11:14AM ; [facility] LMP: 06/23/2023 06/30/2023 Last Documented On 4 11:14AM ; [facility] History of screening mammogram was perfo rmed 2021 -- at [facility] 06/30/2023 Last Documented On 4 11:14AM ; [facility] History of Pap smear done 2014 4 Last Documented On 4 11:14AM ; [facility] Systolic blood pressure 140 mmHg 023 Last Documented On 4 11:14AM ; [facility] Diastolic blood pressure 90 mmHg 022 Last Documented On 4 11:14AM ; [facility] Arthritis 05/21/2021 Last Documented On 4 11:14AM ; [facility] Currently wearing eyeglasses 05/21/2021 Last Documented On 4 11:14AM ; [facility] Diabetes 05/21/2021 Last Documented On 4 11:14AM ; [facility] Hypertension 05/21/2021 Last Documented On 4 11:14AM ; [facility] No. of Pregnancies: 3 05/21/2021 Last Documented On 4 11:14AM ; [facility] Contact with and (Suspected) exposure to COVID-19 03/14/2021 Last Documented On 4 11:14AM ; [facility] Date COVID symptoms started: 03/14/2021 Last Documented On 4 11:14AM ; [facility] A mammogram was performed 2018 1 Last Documented On 4 11:14AM ; [facility] A self-exam of the feet was performed Last Documented On 4 11:14AM ; [facility] Blood sugar was checked by the patient 1 04/24/2019 Last Documented On 4 11:14AM ; [facility] Diet noncompliance 02/22/2020 Last Documented On 4 11:14AM ; [facility] blood sugar check performed 020 Last Documented On 4 11:14AM ; [facility] No recent insulin (hypoglycemic) reactio n 02/22/2020 Last Documented On 4 11:14AM ; [facility] Noncompliance with exercise program 02/07 Last Documented On 4 11:14AM ; [facility] Past medical history 02/22/2020 Last Documented On 4 11:14AM ; [facility] Urine protein was checked 02/22/2020 Last Documented On 4 11:14AM ; [facility] Surgeries: C-sections 1992,1 994,2002. 2013 admitted for extended migraine. ~Illnesses: diabetes, hypertension, OA, Herpes type 1, migraine, Vit D def 04/18/2019 Last Documented On 4 11:14AM ; [facility] History of essential hypertension 2015 Last Documented On 4 11:14AM ; [facility] History of type 2 diabetes mellitus 11/2015 Last Documented On 4 11:14AM ; [facility] History of arthritis 07/17/2015 Last Documented On 4 11:14AM ; [facility] History of diabetes mellitus 07/17/2015 Last Documented On 4 11:14AM ; [facility] History of hypertension 07/17/2015 Last Documented On 4 11:14AM ; [facility] Previous hospitalizations 07/17/2015 Last Documented On 4 11:14AM ; [facility] History of anxiety disorder NOS 07/27/19 15 Last Documented On 4 11:14AM ; [facility] section 07/26/2014 Last Documented On 4 11:14AM ; [facility] In monogamous relationship 07/26/2014 Last Documented On 4 11:14AM ; [facility] Contraception: btl 07/26/2014 Last Documented On 4 11:14AM ; [facility] 3 07/26/2014 Last Documented On 4 11:14AM ; [facility] Para 3 07/26/2014 Last Documented On 4 11:14AM ; [facility] Sexually active 07/26/2014 Last Documented On 4 11:14AM ; [facility] Family History Includes: Family History addressed during this encounter Description Last Updated Family history of malignant female breas t neoplasm P. GREAT AUNT 06/30/2023 Last Documented On 4 11:14AM ; [facility] Family history of malignant neoplasm of large intestine M GRANDFATHER 06/30/2023 Last Documented On 4 11:14AM ; [facility] 5 children 05/21/2021 Last Documented On 4 11:14AM ; [facility] Family history of Arthritis 05/21/2021 Last Documented On 4 11:14AM ; [facility] Family history of anxiety disorder NOS 1 04/04/2020 Last Documented On 4 11:14AM ; [facility] Family history of cancer Col on cancer - maternal granfather ~eye cancer - maternal grandmother 02/02/2021 Last Documented On 4 11:14AM ; [facility] Family history of diabetes mellitus 01/09 Last Documented On 4 11:14AM ; [facility] Family history of heart disease 02/03/20 21 Last Documented On 4 11:14AM ; [facility] Family history of migraine headache 01/09 Last Documented On 4 11:14AM ; [facility] Family history unchanged 08/24/2020 Last Documented On 4 11:14AM ; [facility] FMHx: PGF from lightnin g strike. PGM - DM, HTN, SD age 67. MGF - Alzheimer's 1986. MGM - eye cancer. Uncle - HTN, DM, Kidney failure. Uncle COPD. Mother: HTN, anxiety, COPD 04/18/2019 Last Documented On 4 11:14AM ; [facility] Maternal history of hypertension 016 Last Documented On 4 11:14AM ; [facility] Paternal grandfather's histo ry of malignant neoplasm of the large intestine 07/26/2014 Last Documented On 4 11:14AM ; [facility] Family history of hypertension 5 Last Documented On 4 11:14AM ; [facility] Paternal grandmother's histo ry of diabetes mellitus paternal aunt and uncle 07/26/2014 Last Documented On 4 11:14AM ; [facility] Paternal history of family history of he art disease 07/26/2014 Last Documented On 4 11:14AM ; [facility] Review of Systems Includes: Review of Systems [...] tive Last Documented On 4 11:14AM ; [facility] Floxin Otic Allergy 07/26/2014 Active Last Documented On 4 11:14AM ; [facility] Farxiga Intolerance yeast vaginitis 12/24/2021 A ctive Last Documented On 4 11:14AM ; [facility] Demerol Allergy 07/26/2014 Active Last Documented On 4 11:14AM ; [facility] Cipro Allergy 07/26/2014 Active Last Documented On 4 11:14AM ; [facility] cephalexin Allergy 07/26/2014 Active Last Documented On 4 11:14AM ; [facility] Encounters Encounter Provider Location Date Check-In Time Check-Out Time Diagnosis CHECK UP TOM LILLY M.D. [facility] 08/13/19 24 10:50AM 11:39AM [...] Subscriber Relationship Effect reynaldo Dates 1 - [facility] [id number] FAIZAN Webster 03/10/2023 - Unknown 2 - MEDICARE PART A CLAIMS/NGS [id number] FAIZAN Webster Clinical Notes Includes: Clinical Notes from this encounter * Progress note Date Encounter Last Documented by 08/13/2023 CHECK UP Last documented on 08/13/2023; 1:34 PM, OTM LILLY M.D.; [facility] Active Problems & Conditions - [...] 1 refills - Global Ease Inject Pen Shelby 31G X 5 MM Miscellaneous 31G X [...] and durable medical equipment: wheelchair. 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 Marital: Marital history and currently . Sexual: Sexually active with 1 partners in the last year. Travel: No travel. 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 . No alcohol, drugs, tobacco, vaping. Diet: regular. Exercise: none. Allergies - cephalexin - Cipro - Demerol - Farxiga (Intolerance) Reaction: yeast vaginitis (Mild) - Floxin Otic - Morphine Sulfate Family History 5 children Cancer Colon cancer - maternal granfather eye cancer - maternal grandmother Heart disease Family history unchanged FMHx: PGF from lightning strike. PGM - DM, HTN, SD age 67. MGF - Alzheimer's 1985. MGM [...]
--- OUTSIDE RECORDS SUMMARY | 2024-06-15 17:11 | XMS_ITS | CONTINUITY OF CARE DOCUMENT ---
Author Name cecilia brooks Address Unknown Organization [facility] Address [address] [place] [address] Phone [phone] Care Team Providers Care Marine Rigger Name Role Phone Nicole MEMBRENO, Hal Unavailable Hal Rivera MD Unavailable DR TOM LILLY MD Unavailable PROBLEMS Condition Status Date Provider Notes Hypoalbuminemia active Hal Rivera MD Venous insufficiency active Hal London Renal atrophy, left active Hal Rivera MD OBESITY active Primo Hanks NP DIABETES MELLITUS active Hal Rivera MD DYSPNEA ON EXERTION completed - Hal Rivera MD DIZZINESS;WILL BROWNE completed - Hal Rivera MD ANEMIA, IRON DEFICIENCY active Primo coe NP Hyperlipidemia;with high crp and low lpa active Leyla Ventimiglia FINANCE BUSINESS MANAGER DID NOT GIOVANNA STATIN ANGINA PECTORIS;WILL NUCLEAR completed - Primo Hanks NP Hypertension;neg duplex active Hal lundberg MD Anasarca completed - Hal Rivera MD Vitamin D deficiency active Primo Hanks NP Screening active Hal Rivera MD Renal disease, chronic, mild;neg us and renal angio active Hal Rivera MD Microalbuminuria active Hal Rivera MD Folate-deficiency active Hal Rivera MD B12 deficiency active Hal Rivera MD covid 19;2020;HAD VACCINE active Hal sullivan MD Hypertriglyceridemia active Leyla Ventimiglia FINANCE BUSINESS MANAGER VASCA[A NOT COVRED CAD;NEG CAROTID active Hal Rivera MD Elevated LFT's active Hal Rivera MD Diastolic CHF active Hal Rivera MD Pulmonary hypertension active Hal Rivera MD Chronic back pain active Leylaharleen Sawyer timiglia FINANCE BUSINESS MANAGER UPPER RESPIRATORY INFECTION, ACUTE completed - Primo Hanks NP ANXIETY DISORDER completed - Primo Hanks NP SLEEP APNEA active Primo Hanks NP TUBAL LIGATION STERILIZATION STATUS completed - Primo Hanks NP HTN WHITE COAT;LABS OK 2009 completed 2009 - Primo Hanks NP ENCOUNTERS Date Type Provider Location Encounter Diag nosis 3 - 3 In-person encounter Office Visit Hal Rivera MD [facility] Hyperlipidemia;with high crp and low lpaHypertriglyceridemiaChronic back pain 1 - 1 In-person encounter Office Visit Hal Rivera MD [facility] Renal disease, chronic, mild;neg us and renal angioCAD;NEG CAROTIDElevated LFT'sDiastolic CHFPulmonary hypertension 8 - 8 In-person encounter Office Visit Hal Rivera MD [facility] 9 - 1 In-person encounter Office Visit Eyad Miramontes MD [facility] 0 - 0 In-person encounter Office Visit Hal Rivera MD [facility] ScreeningRenal disease, chronic, mild;neg us and renal angiocovid ;HAD VACCINE 1 - 1 In-person encounter Office Visit Hal Rivera MD [facility] DYSPNEA ON EXERTIONDIZZINESS;WILL WUAnasarcaRenal disease, chronic, mild;neg us and renal angioMicroalbuminuriaFolate-defici encyB12 deficiency 6 - 7 In-person encounter Office Visit Hal Rivera MD [facility] HTN WHITE COAT;LABS OK 2010OBESITYANEMIA, IRON DEFICIENCYTUBAL LIGATION STERILIZATION STATUSANGINA PECTORIS;WILL NUCLEARSLEEP APNEAANXIETY DISORDERUPPER RESPIRATORY INFECTION, ACUTEHypertension;neg duplexVitamin D deficiency 3 - 9 In-person encounter Office Visit [facility] Office 4 - 0 In-person encounter Office Visit [facility] Office 5 - 9 In-person encounter Office Visit [facility] Office 7 - 3 In-person encounter Office Visit [facility] Office 4 - 4 In-person encounter Office Visit Hal Rivera MD [facility] OBESITYDIABETES MELLITUSDYSPNEA ON EXERTIONANEMIA, IRON DEFICIENCYHyperlipidemia;with high crp and low lpaSLEEP APNEA VITAL SIGNS Date Observation Value Provider Body Mass Index (Ratio) 54.20 kg/m2 Luli Rivera MD respiratory rate E&M 16 /min Leyla Ventimiglia FINANCE BUSINESS MANAGER blood pressure, diastolic 80 mm[Hg] Ga ryan Wesson blood pressure, systolic 168 mm[Hg] Gaby dubois Wesson oxygen saturation, oximetry 96 % [facility] pulse rate 85 /min [facility] blood pressure, cuff size regular Ga ryan Wesson weight E&M 315.8 [lb_av] Garyan Cohn height E&M 64 [in_i] [facility] Body Mass Index (Ratio) 54.92 [...] er height E&M 64 [in_i] Gris Swartze [facility] Body Mass Index (Ratio) 54.41 kg/m2 Luli Rivera MD weight E&M 317 [lb_av] Montserrattoño Castillo blood pressure, diastolic 87 mm[Hg] Karissa nnamdi Castillo blood pressure, systolic 169 mm[Hg] Roxanne toño Castillo pulse rate 79 /min Montserrat Castillo blood pressure, cuff size large An nnamdi Castillo height E&M 64 [in_i] Montserrattoño Castlilo oxygen saturation, oximetry 96 % Montserrat Castillo [...] injector subcutaneously once a week Leyla Ventimiglia FINANCE BUSINESS MANAGER torsemide 10 mg tablet active Leyla Ventimiglia FINANCE BUSINESS MANAGER torsemide 20 mg tablet active Leyla Ventimiglia FINANCE BUSINESS MANAGER Zetia 10 mg tablet active TAKE 1 TABLET BY MOUTH EVERY DAY Leyla Ventimiglia FINANCE BUSINESS MANAGER Soaanz 40 mg tablet active 1 tablet [...] by mouth twice a day - [facility] Nex[facility]izet 180-10 mg tablet completed Take 1 tablet by mouth once a day - Leylaharleen Saulunm cancer centermagdalena DAMICOP Kerendia 20 mg tablet completed [...] and drink daily - Hal Rivera MD ezetimibe 10 mg [...] mouth once a day - Leyla Sarina [facility] aspirin 81 mg tablet,chewable active Take 1 tablet by mouth once a day Hal Rivera MD cyanocobalamin (vitamin B-12) 1,000 mcg capsule active TAKE 1 CAPSULE BY MOUTH EVERY DAY [facility] ergocalciferol (vitamin D2) 1,250 mcg (50,000 unit) capsule active Take 1 capsule by mouth once a week [facility] torsemide 40 mg tablet completed every morning [...] TAKE 1 TABLET BY MOUTH ONCE DAILY [facility] Ozempic 0.25 mg or 0.5 mg(2 mg/1.5 [...] history of marijuana use no Leyla Ventimiglia [facility] drug use no Leyla Ventimig desiree [facility] alcohol use no Leyla Ventimig desiree [facility] smoking status Former smoker Leyla Venti miglia [facility] smoking status Former smoker Montserrattoño Stoll s [...] status former smoker Gris Harden [facility] physical exercise, frequency, days per week no [...] Policy type / Coverage type [employer] party ID [facility] [id number] ADVANCE DIRECTIVES Name Date DISCUSSED - NO DECISION MADE TREATMENT PLAN Date Name Performer [id number],C,s core 54, neg stres in 05 and nuc in 11 Hal Rivera MD [id number],C,34 Hal sullivan MD [id number],S, 9 .4 Hal Rivera MD [id number],S, Hal lundberg MD [id number],S, 3 70 Hal Rivera MD [id number],B, Hal lundberg MD [id number],B, Hal lundberg MD [id number],C,N EEDS COLONS S he is anemic and has a hx of iron deficiency. Her anemia is microcytic and I suspect that she is iron deficient again given her recent vegetarian diet. I will check an iron panel and she will take PO iron for now as well as vitamin B12. She may need IV iron infusions as well. Hal Rivera MD [id number],S,n eg echo, neg aaa n eg pro, heg holter, neg brai ct n eg stres 05, neg carotdi duples n eg nuc 11 Hal Rivera MD [id number],B,3 6 2 5 Hal Rivera MD [id number],S, H er updated medication list for this [...] rior BP: 169/87 (11/07/2022) Hal Rivera MD [id number],S, Hal lundberg MD [id number],S, C ontinue CPAP use. Hal Rivera MD [id number],S, Hal Serot toño MEMBRENO [id number],S, Hal Serot a [id number],S,370 Hal luis MD [id number],S,some day will need col Hal Rivera MD [id number],S,9.4 Hal luis MD [id number],S,25 Hal sullivan MD [id number],B, n m pro Hal Rivera MD [id number],S, n m pro Hal Nicole MEMBRENO [id number],S,n eg pro, heg holter, neg brai ct n eg stres 05, neg carotdi duples n eg nuc 11 Hal Rivera MD [id number],C,nm pro Hal Rivera MD [id number],C,neg stres 05, neg carotdi duples Hal Rivera MD [id number],C,Continue CPAP use. Primo Duboiscarolin WASH MILL OPERATOR [id number],C,T he patient has severe vitamin D deficiency. I will start vitamin D 50,000 units per week. Primo Roncarolin WASH MILL OPERATOR [id number],C,S he is anemic and has a hx of iron deficiency. Her anemia is microcytic and I suspect that she is iron deficient again given her recent vegetarian diet. I will check an iron panel and she will take PO iron for now as well as vitamin B12. She may need IV iron infusions as well. Primo Hanks WASH MILL OPERATOR [id number],C,N ot well controlled. She did not tolerate Metformin in the past due to GI issues. I will add Jardiance 25mg qday as noted above and I will also add Ozempic. She will hopefully be able to decrease and eventually with further medication adjustment, come off insulin entirely. Primo Hanks WASH MILL OPERATOR [id number],C,L ipids are significantly elevated. I will add Rosuvastatin 20mg qday and Ezetimibe 10mg qday. Her lipids will also see improvement with better glycemic control. Primo Hanks WASH MILL OPERATOR [id number],C,B lood pressure is elevated. I will add Carvedilol 12.5mg BID. I will continue Amlodipine and Irbesartan without change. Diuresis will also improve her blood pressure with Jardiance and Kerendia. I will stop Clonidine as it is short acting and causes rebound hypertension. She will be better served with longer acting medications that are taken routinely. Primo Hanks WASH MILL OPERATOR [id number],C,T he patient has generalized anasarca and significant [...] qday and Kerendia 10m qday. Primo Hanks WASH MILL OPERATOR Cardiology:patient h as chronic back that limits her ability to walk more than 50 feet at a time. She has now purchased a scDemo Lessonter d/t these mobility issues H ave recommended PT for back pain along with gait and balance training [facility] Cardiology:continue with yelitza sarah stockings [facility] Cardiology:Last Hgb A1C 8% in 08/2023 S [...] 1 tablet by mouth once a day [facility] Cardiology:The patie nt is using CPAP on a regular basis. The patient has been benefiting from therapy and should continue use. [facility] Cardiology:Remains o n Jardiance A ppears compensated [...] 1 tablet by mouth once a day [facility] Cardiology:LDL 112 p atient does not want [...] Take 1 tablet by mouth every day [facility] Cardiology:BP 168/80 above goal, reports better controlled [...] 1 tablet by mouth once a day [facility] Cardiology:on iron and last hgb was 8.6 [facility] Cardiology:on replacement therap y [facility] :neg hep panel Hal Rivera MD :27 [...] Cardiology: C ontinue CPAP use. Angelajose Lopezaren WASH MILL OPERATOR Cardiology:CRP 6.3 H er updated medication list for this problem includes: Ezetimibe 10 Mg Tablet (Ezetimibe) ..... Take 1 tablet by mouth once a day Rosuvastatin 20 Mg Tablet (Rosuvastatin) ..... Take 1 tablet by mouth once a day Angela Johnluri WASH MILL OPERATOR Cardiology: N ARTI LESTERInes S he is anemic and has a hx of iron deficiency. Her anemia is microcytic and I suspect that she is iron deficient again given her recent vegetarian diet. she will take PO iron for now as well as vitamin B12. She may need IV iron infusions as well. planning to consult with counseling center director [facility] Gwenri WASH MILL OPERATOR Cardiology: 9 .4 N ot controlled well. Was on ozempic, which controlled her sugars well per pt. s topped due to impaired renal function e ncoraged to resume Angela Johnluri WASH MILL OPERATOR Cardiology: 3 70 [facility] Cardiology: H er updated medication list for this problem includes: Ezetimibe 10 Mg Tablet (Ezetimibe) ..... Take 1 tablet by mouth once a day Rosuvastatin 20 Mg Tablet (Rosuvastatin) ..... Take 1 tablet by mouth once a day Angela Nalluri WASH MILL OPERATOR Cardiology:swelling improved with toresemide, still some present. Reports mild pain. V enous duplex shows severe venous insufficiency bilaterally r ecommeded to wear compression stockings and ambulate more [facility] Johnluri WASH MILL OPERATOR Cardiology: s core 54, neg stres in 05 and nuc in 11 [facility] WASH MILL OPERATOR Cardiology:Renal US showed Small left kidney without evidence of nephrolithiasis, hydronephrosis, or solid renal mass. R enal duplex: no renal artery stenosis bilaterally E GFR 34, cr 1.8 C T vs angiogram CO2, to avoid/raduce dye. Explained risks and benefits. p atient would like to proceed with renal angiogram. with CO2 Angela Nalluri WASH MILL OPERATOR Cardiology: g fr 34 Angelajose Lopezluri WASH MILL OPERATOR :score 54, neg stres in 05 and n uc in 11 Hal Rivera MD :34 Hal Rivera MD Cardiology: 9 .4 Hal Rivera MD Cardiology Hal Rivera MD Cardiology: 3 70 aHl Rivera MD Cardiology Hal Rivera MD Cardiology [...] need IV iron infusions as well. Hal Rivrea MD Cardiology:neg echo, neg aaa n eg [...] medications that are taken routinely. Primo Hanks WASH MILL OPERATOR Cardiology:The patie nt has generalized anasarca and [...] One tab. daily Orders: C omplete Echo (CPT-67554) H olter Monitor 24 Hr (CPT-39899) S pirometry (CPT-39130) S tress Test - Adenosine (44286) Hal Rivera MD follow up: O rders: C omplete Echo (CPT-89963) H olter Monitor 24 Hr (CPT-50793) S pirometry (CPT-21215) S tress Test - Adenosine (82338) Hal Rivera MD follow up: H er updated medication list for this problem includes: Aspirin 81 Mg Tabs (Aspirin) ..... One tab. daily Altace 5 Mg Caps (Ramipril) ..... One tab. daily Orders: C omplete Echo (CPT-41366) H olter Monitor 24 Hr (CPT-13728) S pirometry (CPT-26176) S tress Test - Adenosine (37966) Hal Rivera MD follow up: H er updated medication list for this problem includes: Aspirin 81 Mg Tabs (Aspirin) ..... One tab. daily Altace 5 Mg Caps (Ramipril) ..... One tab. daily Orders: C omplete Echo (CPT-62241) H olter Monitor 24 Hr (CPT-37952) S pirometry (CPT-72208) S tress Test - Adenosine (15762) Hal Rivera MD follow up: H er updated medication list for this problem includes: Aspirin 81 Mg Tabs (Aspirin) ..... One tab. daily Pravachol 40 Mg Tabs (Pravastatin sodium) ..... One tab. daily Altace 5 Mg Caps (Ramipril) ..... One tab. daily Orders: C omplete Echo (CPT-64701) H olter Monitor 24 Hr (CPT-18632) S pirometry (CPT-73896) S tress Test - Adenosine (63844) Hal Rivera MD follow up: H er updated medication list for this problem includes: Aspirin 81 Mg Tabs (Aspirin) ..... One tab. daily Orders: C omplete Echo (CPT-22224) H olter Monitor 24 Hr (CPT-44515) S pirometry (CPT-85688) S tress Test - Adenosine (15935) Hal Rivera MD follow up: O rders: C omplete Echo (CPT-74411) H olter Monitor 24 Hr (CPT-29535) S pirometry (CPT-28693) S tress Test - Adenosine (41015) Hal Rivera MD follow up: O rders: C omplete Echo (CPT-83166) H olter Monitor 24 Hr (CPT-02083) S pirometry (CPT-01601) S tress Test - Adenosine (34949) Hal Rivera MD follow up Hal Rivera [...] Name Provider Procedure Notes S tatus EKG Hla Rivera MD complete d CT- Coronary CA score Hal Rivera MD completed EKG Hal Rivera MD complete d ePrescribe - Check t his box if eRx is used TD GREER MD completed EKG Hal Rivera MD complete d
--- OUTSIDE RECORDS SUMMARY | 2024-06-15 17:11 | XMS_ITS | Referral Summary ---
Author Organization [facility] Address [address] [place] [id number] Care Team Providers Care Weatherization Operations Manager Name Role Phone Matias Warren MD Primary Care Provider [phone] Allergies Active Allergy Reactions Criticality Noted Date [...] drink = 0.6 oz pur e alcohol) [facility] Utilities Answer Date Recorded In the past 12 months has [employer], [email or web address], or water [employer] threatened to shut off services in your [...] often do you attend chur ch or muslim services? Never 07/23/2023 Do you belong to any clubs o r organizations such as yazidi groups, unions, fraternal or athletic groups, or [...] place to sleep or slept in a longterm (including now)? 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 Gender Identity Not on file Sexual Orientation [...] Plan of Treatment Not on file Insurance [employer] MEDICARE [facility] Address: [address] [address] [place] [address] [facility] HMO/PPO Address: [id number] [place] [address] MEDICARE [facility] ANGELA CEE [facility] MEDICARE [facility] Address: [address] [address] [place] [address] Advance Directives For more information, please contact: [phone] * Full Code (Latest Code Status on File) Date Activated Date Inactivated Comments 07/23/2023 3:39 PM 07/25/2023 6:34 PM Care Teams Weatherization Operations Manager Relationship Specialty Start Date End Date Matias Warren MD [address] [place] [id number] PCP - General Internal Medicine 07/20/23
--- OUTSIDE RECORDS SUMMARY | 2024-06-15 17:11 | XMS_ITS | Clinical Summary ---
Author Organization [facility] Address [address] [place] [address] Phone Care Team Providers Care Social Service Director Name Role Phone Matias Warren MD Primary Care Provider [phone] Allergies Active Allergy Reactions Criticality Noted Date [...] Recently Relevant to Health Maintenance Insurance MEDICARE [facility] [[email or web address]] Care Teams Social Service Director Relationship Specialty Start Date End Date Matias Warren MD [address] [place] [id number] PCP - General Family Medicine 07/09/23
--- OUTSIDE RECORDS SUMMARY | 2024-06-15 17:11 | XMS_ITS | Clinical Summary ---
Author Organization [facility] Address [address] [place] [id number] Care Team Providers Care Outbound Sales Specialist Name Role Phone Matias Warren MD Primary Care Provider [phone] Allergies Active Allergy Reactions Criticality Noted Date [...] drink = 0.6 oz pur e alcohol) [facility] Utilities Answer Date Recorded In the [...] often do you attend chur ch or spiritism services? Never 07/23/2023 Do you belong to any clubs o r organizations such as methodist groups, unions, fraternal or athletic groups, or [...] place to sleep or slept in a fci (including now)? No 07/23/2023 Personal Safety Answer [...] on file Legal Sex Female 11:36 AM [employer] Gender Identity Not on file Sexual Orientation [...] - 2023-2 5 season) 2023 06/09/2020, 05/12/2020 Zoster Vaccine (1 of 2) 2024 DTaP/Tdap/Td Vaccine (3 - Td or Tdap) 10/20/2024 10/20/2014, 10/10/2014, 03/10/2004 Influenza Vaccine (Season Ended) 2024 01/05/2021, 12/06/2019, 12/03/2019, Additional history exists Hepatitis B Screening Completed 10/10/2014 Insurance [employer] MEDICARE [employer] MEDICARE [employer] [facility] MEDICARE ADVANTAGE Advance Directives For more information, please contact: [phone] * Full Code (Latest Code Status on File) Date Activated Date Inactivated Comments 07/23/2023 3:39 PM 07/25/2023 6:34 PM Care Teams Outbound Sales Specialist Relationship Specialty Start Date End Date Matias Warren MD [address] [place] [id number] PCP - General Internal Medicine 07/20/23
--- OUTSIDE RECORDS SUMMARY | 2024-06-15 17:11 | XMS_ITS | Continuity of Care Document ---
Author Organization [facility] Address [address] [place] [address] [place] [address] Phone Care Team Providers Care Relay Worker Name Role Phone Rocky Spence MD Unavailable [...] Copied on Encounter OFFICE/OUTPA TIENT VISIT, EST [facility], [address] [place], [address], tel:[phone] [facility] DM (chief complaint)s leep apnea1 (chief complaint)p roteinuria1 (chief complaint)l ow iron (chief complaint)a nxiety1 (chief complaint) Type 2 diabetes mellitus with diabetic nephropathyEssenti al (primary) hypertensionSleep apneaBody mass index (BMI) 50-59.9 , adult 7 Jordy Hidalgo. [address], [place], [place], [address] , [place]. tel:[phone] Referring Provider: Rocky Spence [address], [place], [place], [address]. tel:[phone] [facility], [address] [place], [address], [place] tel:[phone] [facility] No Information 7 Jordy Hidalgo. [address], [place], [place], [address] , [place]. tel:[phone] OFFICE/OUTPA TIENT VISIT, EST [facility], [address] [place], [address], [place] tel:[phone] [facility] DM1 (chief complaint)H TN (chief complaint)a neity1 (chief complaint)o beisty1 (chief complaint) Type 2 diabetes mellitus without complicationsEssen tial (primary) hypertensionBody mass index (BMI) 50-59.9 , adultAnxiolytic dependence Fercho- 7 Jordy Soto [address], [place], [place], [address] , [place]. tel:[phone] [facility], [address], [place], [address], [place] tel:[phone] [facility] No Information 7 Jordy Soto [address], [place], [address] , [place]. tel:[phone] OFFICE/OUTPA TIENT VISIT, [facility], [address], [place], [place], [address], [place] tel:[phone] [facility] HTN (chief complaint)s leep apnea1 (chief complaint)a nxiety1 (chief complaint)D M (chief complaint) Sleep apneaEssential (primary) hypertensionType 2 diabetes mellitus without complicationsAnxio lytic dependence 7 Jordy Soto [address], [place], [place], [address] , [place]. tel:[phone] [facility], [address], [place], [address], [place] tel:[phone] [facility] No Information 7 Jordy Soto [address], [place], [place], [address] , [place]. tel:[phone] OFFICE/OUTPA TIENT VISIT, [facility], [address], [place], [place], [address], [place] tel:[phone] [facility] DM (chief complaint)H TN (chief complaint)a nxiety1 (chief complaint)a nemia1 (chief complaint) Type 2 diabetes mellitus without complicationsAnxio lytic dependenceEssentia l (primary) hypertensionBody mass index (BMI) 50-59.9 , adult Fe- 7 Jordy Soto [address], [place], [address] , [place]. tel:[phone] Referring Provider: Wilfred [address], [place], [place], [address]. tel:[phone] OFFICE/OUTPA TIENT VISIT, EST [facility], [address], [place], [place], [address], [place] tel:[phone] [facility] HTN (chief complaint)a nxiety1 (chief complaint)D M (chief complaint) Essential (primary) hypertensionType 2 diabetes mellitus without complicationsAnxio lytic dependenceBody mass index (BMI) 50-59.9 , adult Feb- 6 Jordy Hidalgo. [address], [place], [place], [address] , [place]. [phone] Referring Provider: Wilfred [address], [place], [address]. tel:[phone] PREV VISIT, EST, AGE 40-64 [facility], [address], [place], [place], [address], [place] tel:[phone] [facility] PHysical (chief complaint) Encntr for general adult medical exam w/o abnormal findings 6 Jordy Hidalgo. [address], [place], [place], [address] , [place]. [phone] Referring Provider: Wilfred [address], [place], [place], [address]. tel:[phone] OFFICE/OUTPA TIENT VISIT, EST [facility], [address], [place], [address], [place] tel:[phone] [facility] DM (chief complaint)H TN (chief complaint)a nxiety1 (chief complaint)i silvino deficiecy (chief complaint) Iron deficiencyEssentia l (primary) hypertensionAnxiol ytic dependenceType 2 diabetes mellitus without complications 0 6 Jordy Hidalgo. [address], [place], [address] , [place]. [phone] [facility], [address], [place], [place], [address], [place] tel:[phone] [facility] No Information 6 Jordy Hidalgo. [address], [place], [address] , [place]. tel:[phone] OFFICE/OUTPA TIENT VISIT, [facility], [address], [place], [address], [place] tel:[phone] [facility] HTN (chief complaint)D M (chief complaint)a nixety1 (chief complaint) Type 2 diabetes mellitus without complicationsEssen tial (primary) hypertensionAnxiol ytic dependence 6 Jordy Hidalgo. [address], [place], [address] , [place]. [phone] Referring Provider: Wilfred [address], [place], [address]. tel:[phone] OFFICE/OUTPA TIENT VISIT, [facility], [address], [place], [address], [place] tel:[phone] [facility] DM (chief complaint)a nxiety1 (chief complaint)H TN (chief complaint) Type 2 diabetes mellitus without complicationsAnxio lytic dependenceEssentia l (primary) hypertension 6 Jordy Hidalgo. [address], [place], [address] , [place]. [phone] Referring Provider: Wilfred [address], [place], [address]. tel:[phone] OFFICE/OUTPA TIENT VISIT, [facility], [address], [place], [address], [place] tel:[phone] [facility] HTN (chief complaint)D M (chief complaint)a nxiety1 (chief complaint) Essential (primary) hypertensionType 2 diabetes mellitus without complicationsAnxio lytic dependence 6 Jordy Hidalgo. [address], [place], [address] , [place]. tel:[phone] Referring Provider: Wilfred [address], [place], [place], [address]. tel:[phone] OFFICE/OUTPA TIENT VISIT, [facility], [address], [place], [place], [address], [place] tel:[phone] [facility] DM (chief complaint)i silvino deficiency (chief complaint)p roteinuria (chief complaint)H TN (chief complaint) Type 2 diabetes mellitus without complicationsProte inuriaIron deficiencyEssentia l (primary) hypertension 6 Jordy Hidalgo. [address], [place], [address] , [place]. tel:[phone] Referring Provider: Wilfred [address], [place], [place], [address]. tel:[phone] OFFICE/OUTPA TIENT VISIT, [facility], [address], [place], [address], [place] tel:[phone] [facility] DM (chief complaint)a nxiety1 (chief complaint)H TN (chief complaint) Type 2 diabetes mellitus without complicationsAnxio lytic dependenceEssentia l (primary) hypertensionTachyc ardia 6 Jordy Hidalgo. [address], [place], [address] , [place]. [phone] Referring Provider: Wilfred [address], [place], [place], [address]. tel:[phone] OFFICE/OUTPA TIENT VISIT, [facility], [address], [place], [place], [address], [place] tel:[phone] [facility] HTN1 (chief complaint)d M (chief complaint)a nxiety1 (chief complaint) Type 2 diabetes mellitus without complicationsEssen tial (primary) hypertensionAnxiol ytic dependence 6 Jordy Hidalgo. [address], [place], [address] , [place]. tel:[phone] Referring Provider: Wilfred [address], [place], [address]. tel:[phone] OFFICE/OUTPA TIENT VISIT, [facility], [address], [place], [place], [address], [place] tel:[phone] [facility] HTN (chief complaint)D M (chief complaint)a nxiety1 (chief complaint) Type 2 diabetes mellitus without complicationsAnxio lytic dependenceEssentia l (primary) hypertensionEncoun ter for oth screening for malignant neoplasm of breast 6 Jordy Hidalgo. [address], [place], [address] , [place]. [phone] Referring Provider: Wilfred Lopez [facility], [place], [place], [address]. tel:[phone] OFFICE/OUTPA TIENT VISIT, [facility], [address], [place], [place], [address], [place] tel:[phone] [facility] HTN1 (chief complaint)D M1 (chief complaint)A nxiety1 (chief complaint)S ick1 (chief complaint) Type 2 diabetes mellitus without complicationsEssen tial (primary) hypertensionAcute upper respiratory infection, unspecifiedAnxioly tic dependence 5 Jordy Hidalgo. [address], [place], [address] , [place]. [phone] Referring Provider: Wilfred Lopez [facility] A, [place], [place], [address]. tel:[phone] OFFICE/OUTPA TIENT VISIT, [facility], [address], [place], [place], [address], [place] tel:[phone] [facility] HTN1 (chief complaint)D M1 (chief complaint)a nxiety1 (chief complaint)n oncompliant (chief complaint)c hest pain1 (chief complaint) Essential (primary) hypertensionType 2 diabetes mellitus without complications 5 Jordy Soto [address], [place], [address] , [place]. [phone] Referring Provider: Wilfred [address], [place], [place], [address]. tel:[phone] OFFICE/OUTPA TIENT VISIT, [facility], [address], [place], [place], [address], tel:[phone] [facility] DM1 (chief complaint)A nxiety1 (chief complaint)H TN1 (chief complaint)s leep apnea1 (chief complaint) Dietary surveillance and counselingType 2 diabetes mellitus w/o complicationEssent ial (primary) hypertensionOther sleep apnea 5 Jordy Hidalgo. [address], [place], [place], [address] , [place]. tel:[phone] Referring Provider: [address], [place], [place], [address]. tel:[phone] OFFICE/OUTPA TIENT VISIT, [facility], [address] [place], [address], [place] tel:[phone] [facility] DM (chief complaint)H TN (chief complaint)a nxiety (chief complaint) Dietary surveillance and counselingBrittle diabetesUnspecifie d essential hypertensionCurren t use of insulin 5 Jordy Soto [address], [place], [place], [address] , [place]. tel:[phone] Referring Provider: [address], [place], [place], [address]. tel:[phone] OFFICE/OUTPA TIENT VISIT, [facility], [address] [place], [address], [place] tel:[phone] [facility] HTN (chief complaint)D M (chief complaint)s leep apnea (chief complaint) Dietary surveillance and counselingUnspecif ied essential hypertensionUnspec ified sleep apneaBrittle diabetesBMI 50.0 to 59.9 5 Jordy Soto [address], [place], [place], [address] , [place]. tel:[phone] Referring Provider: Rocky Spence, [address], [place], [place], [address]. tel:[phone] OFFICE/OUTPA TIENT VISIT, [facility], [address], [place], [place], [address], [place] tel:[phone] [facility] fatty liver (chief complaint)D M (chief complaint)H TN (chief complaint) Dietary surveillance and counselingUnspecif ied essential hypertensionOther specified disorders of liverBrittle diabetes 5 Jordy Hidalgo. [address], [place], [address] , [place]. tel:[phone] Referring Provider: Rocky Spence, [address], [place], [place], [address]. tel:[phone] [facility], [address], [place], [place], [address], [place] tel:[phone] [facility] No Information 5 Jordy Hidalgo. [address], [place], [place], [address] , [place]. tel:[phone] OFFICE/OUTPA TIENT VISIT, [facility], [address], [place], [place], [address], [place] tel:[phone] [facility] Anxiety (chief complaint)D M (chief complaint) Dietary surveillance and counselingBrittle diabetesBlood pressure elevated 5 Jordy Hidalgo. [address], [place], [place], [address] , [place]. tel:[phone] Referring Provider: Rocky Spence, [address], [place], [place], [address]. tel:[phone] OFFICE/OUTPA TIENT VISIT, [facility], [address], [place], [place], [address], [place] tel:[phone] [facility] sleep apnea (chief complaint)A nxeity (chief complaint)D M (chief complaint) Dietary surveillance and counselingUnspecif ied sleep apneaBrittle diabetesUnspecifie d disorder of liver 5 Jordy Hidalgo. [address], [place], [place], [address] , [place]. tel:[phone] Referring Provider: Wilfred [address], [place], [place], [address]. tel:[phone] OFFICE/OUTPA TIENT VISIT, [facility], [address], [place], [place], [address], [place] tel:[phone] [facility] DM (chief complaint)s leep apnea (chief complaint)a nxiety (chief complaint) Dietary surveillance and counselingDiabetes Mellitus Type 2, UncomplicatedSleep ApneaUnspecified disorder of liver 5 Jordy Hidalgo. [address], [place], [address] , [place]. [phone] Referring Provider: Wilfred [address], [place], [place], [address]. tel:[phone] OFFICE/OUTPA TIENT VISIT, [facility], [address], [place], [place], [address], [place] tel:[phone] [facility] DM (chief complaint)H TN (chief complaint)s leep apnea (chief complaint)L FT (chief complaint) Dietary surveillance and counselingDiabetes Mellitus Type 2, UncomplicatedHyper tension, UnspecifiedUnspeci fied disorder of liverSleep Apnea 5 Jordy Hidalgo. [address], [place], [place], [address] , [place]. [phone] Referring Provider: Wilfred [address], [place], [place], [address]. tel:[phone] OFFICE/OUTPA TIENT VISIT, [facility], [address], [place], [place], [address], [place] tel:[phone] [facility] anxiety (chief complaint)D M (chief complaint) Dietary surveillance and counselingDiabetes Mellitus Type 2, UncomplicatedSleep ApneaSedative, hypnotic or anxiolytic dependence, unspecified Fe 5 Jordy Hidalgo. [address], [place], [place], [address] , [place]. [phone] Referring Provider: Rocky Spence, [address], [place], [place], [address]. tel:[phone] OFFICE/OUTPA TIENT VISIT, [facility], [address], [place], [place], [address], [place] [phone] [facility] DM (chief complaint)a nxiety (chief complaint)H TN (chief complaint)s leep apnea (chief complaint) Dietary surveillance and counselingDiabetes Mellitus, Adult Onset, UncontrolledHypert ension, UnspecifiedSleep Apnea 5 Jordy Hidalgo. [address], [place], [place], [address] , [place]. tel:[phone] Referring Provider: Wilfred [address], [place], [place], [address]. tel:[phone] OFFICE/OUTPA TIENT VISIT, [facility], [address], [place], [place], [address], [place] tel:[phone] [facility] DM (chief complaint)s leep apnea (chief complaint)a nxiety (chief complaint) Dietary surveillance and counselingDiabetes Mellitus Type 2, UncomplicatedSleep ApneaCentral hearing lossHypertension, Unspecified 4 Jordy Hidalgo. [address], [place], [place], [address] , [place]. [phone] Referring Provider: Wilfred [address], [place], [place], [address]. tel:[phone] OFFICE/OUTPA TIENT VISIT, [facility], [address], [place], [place], [address], [place] tel:[phone] [facility] DM (chief complaint)l ow iron (chief complaint)a nxiety (chief complaint) AnemiaHypertension , UnspecifiedDiabete s Mellitus, Adult Onset, UncontrolledDietar y surveillance and counseling 4 Jordy Hidalgo. [address], [place], [place], [address] , . tel:[phone] Referring Provider: Rocky Spence, [address], [place], [place], [address]. tel:[phone] OFFICE/OUTPA TIENT VISIT, [facility], [address], [place], [place], [address], [place] tel:[phone] [facility] finger infection (chief complaint)a nxiety (chief complaint)D M (chief complaint) Dietary surveillance and counselingDiabetes Mellitus, Adult Onset, UncontrolledOnychi a and paronychia of fingerSleep ApneaHypertension, Unspecified 4 Jordy Hidalgo. [address], [place], [place], [address] , . tel:[phone] Referring Provider: Wilfred [address], [place], [place], [address]. tel:[phone] OFFICE/OUTPA TIENT VISIT, [facility], [address], [address], [place] tel:[phone] [facility] headache (chief complaint)a nxiety (chief complaint)s leep apnea (chief complaint)t innitus (chief complaint) Dietary surveillance and counselingHeadache Sleep ApneaCentral hearing loss 4 Jordy Hidalgo. [address], [place], [place], [address] , [place]. tel:[phone] Referring Provider: Wilfred [address], [place], [place], [address]. tel:[phone] OFFICE/OUTPA TIENT VISIT, [facility], [address], [place], [address], [place] tel:[phone] [facility] DM (chief complaint)a nxiety (chief complaint)h and numbness (chief complaint) Dietary surveillance and counselingDiabetes Mellitus Type 2, UncomplicatedDistu rbance of skin sensationCervicalg ia 4 Jordy Hidalgo. [address], [place], [place], [address] , [place]. tel:[phone] Referring Provider: Wilfred [address], [place], [place], [address]. tel:[phone] OFFICE/OUTPA TIENT VISIT, [facility], [address], [place], [place], [address], [place] tel:[phone] [facility] DM (chief complaint)H TN (chief complaint)a nxiety (chief complaint)d izziness (chief complaint)s leep apnea (chief complaint) Diabetes Mellitus Type 2, UncomplicatedVerti goHypertension, UnspecifiedSleep Apnea 4 Jordy Hidalgo. [address], [place], [place], [address] , . tel:[phone] Referring Provider: Wilfred [address], [place], [place], [address]. tel:[phone] OFFICE/OUTPA TIENT VISIT, [facility], [address] [place], [address], [place] tel:[phone] [facility] DM (chief complaint)a nxiety (chief complaint)H TN (chief complaint) Dietary surveillance and counselingDiabetes Mellitus, Adult Onset, UncontrolledHypert ension, Unspecified 4 Jordy Hidalgo. [address], [place], [place], [address] , [place]. tel:[phone] Referring Provider: Wilfred [address], [place], [place], [address]. tel:[phone] OFFICE/OUTPA TIENT VISIT, [facility], [address], [place], [place], [address], [place] tel:[phone] [facility] Tinnitus (chief complaint)a nxiety (chief complaint)D M (chief complaint) Tinnitus, unspecifiedVertigo Diabetes Mellitus Type 2, UncomplicatedDieta ry surveillance and counseling 4 Jordy Hidalgo. [address], [place], [place], [address] , . tel:[phone] Referring Provider: Wilfred [address], [place], [place], [address]. tel:[phone] OFFICE/OUTPA TIENT VISIT, [facility], [address], [place], [place], [address], tel:[phone] [facility] DM (chief complaint)H TN (chief complaint)a nxiety (chief complaint) Dietary surveillance and counselingDiabetes Mellitus Type 2, UncomplicatedHyper tension, Unspecified 4 Jordy Hidalgo. [address], [place], [place], [address] , [place]. tel:[phone] Referring Provider: [facility] [place], [address]. tel:[phone] OFFICE/OUTPA TIENT VISIT, [facility], [address], [place], [place], [address], [place] tel:[phone] [facility] shingle (chief complaint)A nxiety (chief complaint)S inus (chief complaint)D M (chief complaint) Dietary surveillance and counselingHerpes zoster without mention of complicationSinusi tis, AcuteTinnitus, unspecifiedDiabete s Mellitus, Adult Onset, Uncontrolled 4 Jordy Hidalgo. [address], [place], [place], [address] , [place]. tel:[phone] Referring Provider: Wilfred [address], [place], [place], [address]. tel:[phone] OFFICE/OUTPA TIENT VISIT, [facility], [address], [place], [place], [address], [place] tel:[phone] [facility] anxiety (chief complaint)e ar pain (chief complaint)b ack pain (chief complaint) Dietary surveillance and counselingDietary surveillance and counselingTinnitus , unspecifiedLumbago Otalgia, unspecified 4 Jordy Hidalgo. [address], [place], [place], [address] , [place]. tel:[phone] Referring Provider: Wilfred [address], [place], [place], [address]. tel:[phone] OFFICE/OUTPA TIENT VISIT, [facility], [address], [place], [place], [address], [place] tel:[phone] [facility] HTN (chief complaint)D M (chief complaint)a nxiety (chief complaint) Dietary surveillance and counselingHyperten sarah, UnspecifiedDiabete s Mellitus, Adult Onset, Uncontrolled 4 Jordy Hidalgo. [address], [place], [address] , [place]. [phone] Referring Provider: Wilfred [address], [place], [place], [address]. tel:[phone] OFFICE/OUTPA TIENT VISIT, [facility], [address], [place], [place], [address], [place] tel:[phone] [facility] DM (chief complaint)a nxiety (chief complaint) Dietary surveillance and counselingHyperten sarah, UnspecifiedDiabete s Mellitus, Adult Onset, Uncontrolled 4 Jordy Hidalgo. [address], [place], [place], [address] , [place]. tel:[phone] Referring Provider: Wilfred [address], [place], [place], [address]. tel:[phone] OFFICE/OUTPA TIENT VISIT, [facility], [address], [place], [address], [place] tel:[phone] [facility] anxiety (chief complaint)U RI (chief complaint)D M (chief complaint) Dietary surveillance and counselingDiabetes Mellitus, Adult Onset, UncontrolledAcute upper respiratory infections of other multiple sites 3 Jordy Hidalgo. [address], [place], [place], [address] , [place]. tel:[phone] Referring Provider: Rocky Spence [address], [place], [place], [address]. tel:[phone] OFFICE/OUTPA TIENT VISIT, [facility], [address], [place], [address], [place] tel:[phone] [facility] HTN (chief complaint)D M (chief complaint)a nxiety (chief complaint) Dietary surveillance and counselingHyperten sarah, UnspecifiedDiabete s Mellitus, Adult Onset, Uncontrolled 3 Jordy Hidalgo. [address], [place], [address] , [place]. tel:[phone] OFFICE/OUTPA TIENT VISIT, [facility], [address], [place], [place], [address], [place] tel:[phone] [facility] HTN (chief complaint)a nxiety (chief complaint)f atigue (chief complaint) Dietary surveillance and counselingLumbagoH ypertension, UnspecifiedSleep Apnea 3 Jordy Hidalgo. [address], [place], [address] , [place]. tel:[phone] Referring Provider: Wilfred [address], [place], [place], [address]. tel:[phone] OFFICE/OUTPA TIENT VISIT, [facility], [address], [place], [address], [place] tel:[phone] [facility] HTN (chief complaint)D M (chief complaint)a nxiety (chief complaint) Dietary surveillance and counselingLumbagoH ypertension, UnspecifiedDiabete s Mellitus Type 2, Uncomplicated 3 Jordy Hidalgo. [address], [place], [place], [address] , [place]. tel:[phone] Referring Provider: Wilfred [address], [place], [place], [address]. tel:[phone] OFFICE/OUTPA TIENT VISIT, [facility], [address], [place], [address], [place] tel:[phone] [facility] anemia (chief complaint)D M (chief complaint)a nxiety (chief complaint) AnemiaHypertension , UnspecifiedDiabete s Mellitus Type 2, UncomplicatedDieta ry surveillance and counseling 3 Jordy Hidalgo. [address], [address], [place], [place], [address] , [place]. [phone] Referring Provider: Rocky Spence, [address], [place], [place], [address]. tel:[phone] OFFICE/OUTPA TIENT VISIT, [facility], [address], [place], [place], [address], [place] tel:[phone] [facility] anemia (chief complaint)D M (chief complaint)H TN (chief complaint) AnemiaDietary surveillance and counselingDiabetes Mellitus, Adult Onset, UncontrolledHypert ension, Unspecified 3 Jordy Hidalgo. [address], [address], [place], [place], [address] , [place]. tel:[phone] Referring Provider: Rocky Spence [address], [place], [place], [address]. tel:[phone] OFFICE/OUTPA TIENT VISIT, [facility], [address], [place], [place], [address], [place] tel:[phone] [facility] anxiety (chief complaint)D M (chief complaint)b ronchitis (chief complaint) Dietary surveillance and counselingDiabetes Mellitus, Adult Onset, UncontrolledHypert ension, UnspecifiedBronchi tis, Acute 3 Jordy Soto [address], [address], [place], [place], [address] , [place]. [phone] Referring Provider: Rocky Spence [address], [place], [place], [address]. tel:[phone] OFFICE/OUTPA TIENT VISIT, [facility], [address], [place], [address], [place] tel:[phone] [facility] HTN (chief complaint)a nxiety (chief complaint)s ick (chief complaint) Acute upper respiratory infections of other multiple sitesHypertension, UnspecifiedDiabete s Mellitus, Adult Onset, Uncontrolled 3 Jordy Hdialgo. [address], [address], [place], [address] , [place]. tel:[phone] Referring Provider: Rocky Spence, [address], [place], [place], [address]. tel:[phone] OFFICE/OUTPA TIENT VISIT, [facility], [address], [place], [place], [address], [place] tel:[phone] [facility] HTN (chief complaint)D M (chief complaint)a nxiety (chief complaint) Dietary surveillance and counselingHyperten sarah, UnspecifiedDiabete s Mellitus, Adult Onset, Uncontrolled Jun- 3 Jordy Hidalgo. [address], [place], [place], [address] , [place]. [phone] Referring Provider: Wilfred [address], [place], [place], [address]. tel:[phone] OFFICE/OUTPA TIENT VISIT, [facility], [address], [place], [address], [place] tel:[phone] [facility] HTN (chief complaint)V ision chanage (chief complaint)A nemia (chief complaint) Dietary surveillance and counselingAnemiaDi abetes Mellitus, Adult Onset, UncontrolledHypert ension, UnspecifiedCarotid Artery Disease, Unilateral 3 Jordy Hidalgo. [address], [place], [place], [address] , [place]. [phone] Referring Provider: Wilfred [address], [place], [place], [address]. tel:[phone] OFFICE/OUTPA TIENT VISIT, [facility], [address], [place], [place], [address], [place] tel:[phone] [facility] cough (chief complaint)H TN (chief complaint) Dietary surveillance and counselingAcute upper respiratory infections of other multiple sitesHypertension, UnspecifiedDiabete s Mellitus, Adult Onset, Uncontrolled 3 Jordy Hidalgo. [address], [place], [place], [address] , [place]. [phone] Referring Provider: Wilfred [address], [place], [address]. tel:[phone] OFFICE/OUTPA TIENT VISIT, [facility], [address], [place], [place], [address], [place] tel:[phone] [facility] anxiety (chief complaint)H TN (chief complaint)D M (chief complaint) Dietary surveillance and counselingHyperten sarah, UnspecifiedDiabete s Mellitus, Adult Onset, UncontrolledLumbag o 3 Jordy Hidalgo. [address], [place], [address] , [place]. [phone] Referring Provider: Wil[address], [place], [address]. tel:[phone] OFFICE/OUTPA TIENT VISIT, [facility], [address], [place], [place], [address], [place] tel:[phone] [facility] DM/HTN (chief complaint)a nxiety (chief complaint)a nemia (chief complaint) Dietary surveillance and counselingDiabetes Mellitus Type 2, UncomplicatedAnemi aLumbagoHypertensi on, Unspecified 2 Jordy Hidalgo. [address], [place], [address] , [place]. tel:[phone] Referring Provider: Wilfred [address], [place], [address]. tel:[phone] OFFICE/OUTPA TIENT VISIT, [facility], [address], [place], [place], [address], tel:[phone] [facility] back pain (chief complaint)a nxiety (chief complaint)D M (chief complaint) Dietary surveillance and counselingLumbagoD iabetes Mellitus Type 2, UncomplicatedHyper tension, Unspecified 2 Jordy Hidalgo. [address], [facility] [address], [place], [place], [address] , . tel:[phone] Referring Provider: Wilfred Lopez [facility] [address], [place], [address]. tel:[phone] OFFICE/OUTPA TIENT VISIT, [facility], [address], [place], [place], [address], tel:[phone] [facility] anxiety (chief complaint)b ack pain (chief complaint)H TN (chief complaint)a nemia (chief complaint) Dietary surveillance and counselingLumbagoA nemiaHypertension, Unspecified 2 Jordy Hidalgo. [address], [place], [place], [address] , [place]. tel:[phone] Referring Provider: Wilfred Lopez [facility], [place], [place], [address]. tel:[phone] Family History Family Member Type Diagnosis Age [...] ordered Referral Referred To: Tosha Kilpatrick [address] [facility] [employer]
[address] [place], [phone] Ordered: Referrals: Tosha Kilpatrick. 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 Pt has been using CPAP nightly [...] strip. Instructions Date Instruction Additional Infor mation Increase physical activity. Rela mason to Type [...] Related to Dietary surveillance counseling Dietary counseling provided Rela mason to Hypertension, Unspecified Dietary counseling Related to Di etary surveillance counseling Activity counseling provided Rel ated to Hypertension, Unspecified Decrease caloric intake Related to Dietary surveillance [...] Mental Status Date Cognitive Assessment Orientation - [place] ed to time, place, person, situation.
--- OUTSIDE RECORDS SUMMARY | 2024-06-15 17:12 | XMS_ITS ---
Author Organization [facility] Address [address] [place] [id number] Care Team Providers Care Bin Packer Name Role Phone Kelvin MEMBRENO, Andres Primary Care Provider Rudy Moses Unavailable [phone] REASON FOR VISIT NO SHOW/RESCHEDULED MULTIPLE APPTS Encounters Encounter Location Date Provider Diagnosis [facility] [address] [id number] 06/24/2023 Rudy Veloz PLAN OF TREATMENT No Information
--- OUTSIDE RECORDS SUMMARY | 2024-06-15 17:12 | XMS_ITS | Clinical Summary ---
Author Organization [facility] Address [address] [place] [address] Care Team Providers Care Plant Equipment Engineer Name Role Phone Teresita Cortez MD Primary Care Provider Source Comments [facility],non-[facility] [place] Affiliates and Associated Physician Practices is amultiple site organization consisting of ambulatory clinics and hospital sitesin [place], [place], [place] and [place]. This disclosure is being madepursuant to the Care Everywhere program and may not contain all information available regarding this patient. Last updated 17.[facility] [employer] Allergies Active Allergy Reactions Criticality Noted Date [...] age to complete this topic Care Teams Plant Equipment Engineer Relationship Specialty Start Date End Date Teresita Cortez MD [address] [place] [address] [address] [place] [address] PCP - General 05/07/19
--- OUTSIDE RECORDS SUMMARY | 2024-06-15 17:12 | XMS_ITS | Clinical Summary ---
Author Organization [facility] Address [address] [place] [address] Phone Care Team Providers Care Special Skills Officer Name Role Phone ИВАН LILLY MD Primary Care Provider [phone] MAXX Melgar, TOM Acosta [phone] Reason for Visit and Chief Complaint WOUND CHECK - NEW PATIENT Problems Includes: Problems addressed during this encounter and other active Problems All Visits Onset Date Resolved Date Provider Condition S tatus Diabetes Mellitus Type 2 07/14/2023 TOM LILLY M.D. Active Last Documented On 4 4:48PM ; [facility] Chronic Kidney Disease [...] GROUP Generalized Anxiety Disorder 02/05/2021 SCOOTER L AMURA DO Active Last Documented On 1 9:22AM ; [facility] Obesity Morbid 02/05/2021 SCOOTER Meagan SHAVERMAURA DO Ac tive Last Documented On 1 9:22AM ; [facility] Vitamin D Deficiency 05/24/2020 ARLEY HEATH MD Active Last Documented On 1 4:27PM ; [facility] Essential Hypertension 07/17/2015 CANDIS MANRIQUE MD Active Last Documented On 6 5:39PM ; [facility] Plan of Treatment Care Programs CHRONIC CARE MANAGMENT Last Documented On 1 11:07AM ; [facility] Assessments Includes: Assessments from this encounter No [...] On 4 8:36AM By TRINH TEJADA ; [facility] Vitamin D3 125 MCG (5000 UT) Oral [...] [facility] Medications Administered Includes: Administered Medications from this [...] Location Service Date UNNA BOOT APPLICATION (LEFT) [address] Chronic venous hypertension w ulcer of l low extrem JULIANO MARTINEZ [facility] 08/18/2023 Last Documented On 4 11:24AM ; [facility] Medical History Includes: Medical History addressed during [...] tive Last Documented On 4 11:14AM ; [facility] Floxin Otic Allergy 07/26/2014 Active Last Documented On 4 11:14AM ; [facility] Farxiga Intolerance yeast vaginitis 12/24/2021 A ctive Last Documented On 4 11:14AM ; [facility] Demerol Allergy 07/26/2014 Active Last Documented On 4 11:14AM ; [facility] Cipro Allergy 07/26/2014 Active Last Documented On 4 11:14AM ; [facility] cephalexin Allergy 07/26/2014 Active Last Documented On 4 11:14AM ; [facility] Encounters Encounter Provider Location Date Check-In Time Check- Out Time Diagnosis WOUND CHECK - NEW PATIENT JULIANO MARTINEZ DO [facility] 4 2:00PM 2:55PM Insurance Includes: Active Insurance Policies Plan Name Member ID Group # Subscriber Relationship Effect reynaldo Dates 1 - [facility] [id number] FAIZAN Webster 03/10/2023 - Unknown 2 - MEDICARE PART A CLAIMS/NGS [id number] FAIZAN Webster Clinical Notes Includes: Clinical Notes from this encounter No Clinical Notes Recorded
--- OUTSIDE RECORDS SUMMARY | 2024-06-15 17:12 | XMS_ITS | Clinical Summary ---
Author Organization [facility] Address [address] [place] [address] Phone Care Team Providers Care Furnace Operator Name Role Phone ИВАН LILLY MD Primary Care Provider [phone] MAXX Melgar, TOM Acosta [phone] Reason for Visit and Chief Complaint WOUND CHECK - EST PATIENT Problems Includes: Problems addressed during this encounter and other active Problems All Visits Onset Date Resolved Date Provider Condition S tatus Diabetes Mellitus Type 2 07/14/2023 TOM LILLY M.D. Active Last Documented On 4 4:48PM ; [facility] Chronic Kidney Disease Stage 2 Due To Type 2 Diabetes Mellitus 06/30/2023 LAURA FONTENOT RN [facility] C Active Last Documented On 4 1:29PM ; [facility] Hyperlipidemia Due To Type 2 Diabetes Mellitus 06/30/2023 LAURA FONTENOT RN AVA BC Activ e Last Documented On 4 1:31PM ; [facility] Note: elevated crp Venous Insufficiency 06/30/2023 LAURA MOSER Active Last Documented On 4 1:30PM ; [facility] Iron Deficiency Anemia 02/11/2022 TOM INMAN M.D. 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 Active Last Documented On 2 5:37PM ; [facility] Generalized Anxiety Disorder 02/05/2021 SCOOTER L MAURA DO Active Last Documented On 1 9:22AM ; [facility] Obesity Morbid 02/05/2021 SCOOTERJose LORENZO DO Ac tive Last Documented On 1 9:22AM ; [facility] Vitamin D Deficiency 05/24/2020 ARLEY HEATH MD Active Last Documented On 1 4:27PM ; [facility] Essential Hypertension 07/17/2015 CANDIS MANRIQUE MD Active Last Documented On 6 5:39PM ; [facility] Plan of Treatment Care Programs CHRONIC CARE MANAGMENT Last Documented On 1 11:07AM ; [facility] Assessments Includes: Assessments from this encounter No Assessments Recorded Medical Equipment - Implanted Devices Includes: Current Devices No Medical Equipment Recorded Medications Includes: Medications discussed during this encounter and other current Medications Current Medications (continue as prescribed) Diflucan 150 MG Oral Tablet 08/14/2023 Provider: TOM LILLY M.D. Diagnosis: One tablet daily Last Documented On 08/14/2023 11:36AM By ИВАН LILLY MD ; [facility] Sodium Bicarbonate 650 MG Oral Tablet 08/13/2023 Pro vider: Diagnosis: Last Documented On 08/13/2023 11:26AM By Marques Peters Jose ; [facility] diazePAM 10 MG Oral Tablet 08/11/2023 Provider: TOM LILLY M.D. Diagnosis: Generalized anxi ety disorder TAKE 1 TABLET BY MOUTH THREE TIMES DAILY Last Documented On 08/11/2023 8:59AM By ИВАН LILLY MD ; [facility] amLODIPine Besylate 10 MG Oral Tablet 08/10/2023 Provider: TOM LILLY M.D. Diagnosis: Essential (prima ry) hypertension TAKE 1 TABLET BY MOUTH EVERY DAY Last Documented On 08/10/2023 9:13PM By ИВАН LILLY MD ; [facility] Jardiance 25 MG Oral Tablet 08/10/2023 Provider: TOM LILLY M.D. Diagnosis: Type 2 diabetes mellitus with hyperglycemia One tablet daily Last Documented On 08/10/2023 9:13PM By ИВАН LILLY MD ; [facility] Torsemide 10 MG Oral Tablet 08/09/2023 Provider: VIRGILIO SAENZ MD Diagnosis: Last Documented On 08/13/2023 11:26AM By Marques MAGDALENO ; [facility] metOLazone 2.5 MG Oral Tablet 08/08/2023 Provider: HARPER FISHER MD Diagnosis: Last Documented On 08/13/2023 11:26AM By Marques MAGDALENO ; [facility] BD Pen Needle Mini U/F 31G X 5 MM Miscellaneous 08/07/2023 Provider: TOM Diaz Diagnosis: Type 2 diabetes mellitus without complications as directed Last Documented On 08/07/2023 11:48AM By ИВАН LILLY MD ; [facility] Basaglar KwikPen 100 UNIT/ML Subcutaneous Solution Pen-injector 07/31/2023 Provider: TOM Ma Diagnosis: 40 u at night Last Documented On 4 8:36AM By TRINH TEJADA ; [facility] FeroSul 325 (65 Fe) MG Oral Tablet 07/31/2023 Provid er: Diagnosis: Last Documented On 4 8:36AM By TRINH TEJADA ; [facility] HumaLOG KwikPen 100 UNIT/ML Subcutaneous Solution Pen-injector 07/28/2023 Provider: TOM Ma Diagnosis: 14 u with meals Last Documented On 4 8:36AM By TRINH TEJADA ; [facility] Folic Acid 1 MG Oral Tablet 05/19/2023 Provider: TOM LILLY M.D. Diagnosis: Deficiency of ot her specified B group vitamins One tablet daily Last Documented On 4 8:36AM By TRINH TEJADA ; [facility] Dexcom G6 Transmitter Miscellaneous 03/03/2023 Provider: TOM LILLY M.D. Diagnosis: Type 2 diabetes mellitus with hyperglycemia USE DIRECTED TO CHECK BLOOD SUGAR Last Documented On 4 8:36AM By TRINH TEJADA ; [facility] Veltassa 8.4 GM Oral Packet 12/10/2022 Provider: Diagnosis: once daily Last Documented On 4 8:36AM By TRINH TEJADA ; [facility] Aspirin Adult Low Dose 81 MG Oral Tablet Delayed Relea se 12/10/2022 Provider: Diagnosis: Last Documented On 4 8:36AM By TRINH TEJADA ; [facility] Global Ease Inject Pen Needl es 31G X 5 MM Miscellaneous 11/08/2022 Provider: TONY [place] Diagnosis: DIRECTED TEST THREE TIMES DAILY Last Documented On 4 8:36AM By TRINH TEJADA ; [facility] Vitamin D3 125 MCG (5000 UT) Oral Capsule 10/09/2022 Provider: TOM LILLY M.D. Diagnosis: Vitamin D defici ency, unspecified One tablet daily Last Documented On 4 8:36AM By TRINH TEJADA ; [facility] Vitamin B12 1000 MCG Oral Tablet 10/09/2022 Provider: TOM LILLY M.D. Diagnosis: Deficiency of ot her specified B group vitamins One tablet daily Last Documented On 4 8:36AM By TRINH TEJADA ; [facility] Medications Administered Includes: Administered Medications from this [...] tive Last Documented On 4 11:14AM ; [facility] Floxin Otic Allergy 07/26/2014 Active Last Documented On 4 11:14AM ; [facility] Farxiga Intolerance yeast vaginitis 12/24/2021 A ctive Last Documented On 4 11:14AM ; [facility] Demerol Allergy 07/26/2014 Active Last Documented On 4 11:14AM ; [facility] Cipro Allergy 07/26/2014 Active Last Documented On 4 11:14AM ; [facility] cephalexin Allergy 07/26/2014 Active Last Documented On 4 11:14AM ; [facility] Insurance Includes: Active Insurance Policies Plan Name Member ID Group # Subscriber Relationship Effect reynaldo Dates 1 - [facility] [id number] FAIZAN Webster 03/10/2023 - Unknown 2 - MEDICARE PART A CLAIMS/NGS [id number] FAIZAN Webster Clinical Notes Includes: Clinical Notes from this encounter No Clinical Notes Recorded
--- OUTSIDE RECORDS SUMMARY | 2024-06-15 17:13 | XMS_ITS | Clinical Summary ---
Author Organization [facility] Address [address] [place] [address] Phone Care Team Providers Care Rv Mechanic Name Role Phone ИВАН LILLY MD Primary Care Provider [phone] MAXX Melgar, TOM Acosta [phone] Reason for Visit and Chief Complaint WOUND CHECK - EST PATIENT Problems Includes: Problems addressed during this encounter and other active Problems All Visits Onset Date Resolved Date Provider Condition S tatus Diabetes Mellitus Type 2 07/14/2023 TOM LILLY M.D. Active Last Documented On 4 4:48PM ; [facility] Chronic Kidney Disease Stage 2 Due To Type 2 Diabetes Mellitus 06/30/2023 LAURA JOHN B C Active Last Documented On 4 1:29PM ; [facility] Hyperlipidemia Due To Type 2 Diabetes Mellitus 06/30/2023 LAURA MOSER Activ e Last Documented On 4 1:31PM ; [facility] Note: elevated crp Venous Insufficiency 06/30/2023 LAURA MOSER Active Last Documented On 4 1:30PM ; [facility] Iron Deficiency Anemia 02/11/2022 TOM INMAN M.D. 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 Active Last Documented On 2 5:37PM ; [facility] Generalized Anxiety Disorder 02/05/2021 SCOOTER L MAURA DO Active Last Documented On 1 9:22AM ; [facility] Obesity Morbid 02/05/2021 SCOOTER Meagan SHAVERMAURA DO Ac tive Last Documented On 1 9:22AM ; [facility] Vitamin D Deficiency 05/24/2020 ARLEY HEATH MD Active Last Documented On 1 4:27PM ; [facility] Essential Hypertension 07/17/2015 CANDIS MANRIQUE MD Active Last Documented On 6 5:39PM ; [facility] Plan of Treatment Care Programs CHRONIC CARE MANAGMENT Last Documented On 1 11:07AM ; [facility] Assessments Includes: Assessments from this encounter No Assessments Recorded Medical Equipment - Implanted Devices Includes: Current Devices No Medical Equipment Recorded Medications Includes: Medications discussed during this encounter and other current Medications Current Medications (continue as prescribed) Diflucan 150 MG Oral Tablet 08/14/2023 Provider: TOM LILLY M.D. Diagnosis: One tablet daily Last Documented On 08/14/2023 11:36AM By ИВАН LILLY MD ; [facility] Sodium Bicarbonate 650 MG Oral Tablet 08/13/2023 Pro vider: Diagnosis: Last Documented On 08/13/2023 11:26AM By Marques MAGDALENO ; [facility] diazePAM 10 MG Oral Tablet 08/11/2023 Provider: TMO LILLY M.D. Diagnosis: Generalized anxi ety disorder TAKE 1 TABLET BY MOUTH THREE TIMES DAILY Last Documented On 08/11/2023 8:59AM By ИВАН LILLY MD ; [facility] amLODIPine Besylate 10 MG Oral Tablet 08/10/2023 Provider: TOM LILLY M.D. Diagnosis: Essential (prima ry) hypertension TAKE 1 TABLET BY MOUTH EVERY DAY Last Documented On 08/10/2023 9:13PM By ИВАН LILLY MD ; [facility] Jardiance 25 MG Oral Tablet 08/10/2023 Provider: TOM LILLY M.D. Diagnosis: Type 2 diabetes mellitus with hyperglycemia One tablet daily Last Documented On 08/10/2023 9:13PM By ИВАН LILLY MD ; [facility] Torsemide 10 MG Oral Tablet 08/09/2023 Provider: VIRGILIO SAENZ MD Diagnosis: Last Documented On 08/13/2023 11:26AM By Marques MAGDALENO ; [facility] metOLazone 2.5 MG Oral Tablet 08/08/2023 Provider: HARPER FISHER MD Diagnosis: Last Documented On 08/13/2023 11:26AM By Marques MAGDALENO ; [facility] BD Pen Needle Mini U/F 31G X 5 MM Miscellaneous 08/07/2023 Provider: TOM Diaz Diagnosis: Type 2 diabetes mellitus without complications as directed Last Documented On 08/07/2023 11:48AM By ИВАН LILLY MD ; [facility] Basaglar KwikPen 100 UNIT/ML Subcutaneous Solution Pen-injector 07/31/2023 Provider: TOM Ma Diagnosis: 40 u at night Last Documented On 4 8:36AM By TRINH TEJADA ; [facility] FeroSul 325 (65 Fe) MG Oral Tablet 07/31/2023 Provid er: Diagnosis: Last Documented On 4 8:36AM By TRINH TEJADA ; [facility] HumaLOG KwikPen 100 UNIT/ML Subcutaneous Solution Pen-injector 07/28/2023 Provider: TOM Ma Diagnosis: 14 u with meals Last Documented On 4 8:36AM By TRINH TEJADA ; [facility] Folic Acid 1 MG Oral Tablet 05/19/2023 Provider: TOM LILLY M.D. Diagnosis: Deficiency of ot her specified B group vitamins One tablet daily Last Documented On 4 8:36AM By TRINH TEJADA ; [facility] Dexcom G6 Transmitter Miscellaneous 03/03/2023 Provider: TOM LILLY M.D. Diagnosis: Type 2 diabetes mellitus with hyperglycemia USE DIRECTED TO CHECK BLOOD SUGAR Last Documented On 4 8:36AM By TRINH TEJADA ; [facility] Veltassa 8.4 GM Oral Packet 12/10/2022 Provider: Diagnosis: once daily Last Documented On 4 8:36AM By TRINH TEJADA ; [facility] Aspirin Adult Low Dose 81 MG Oral Tablet Delayed Relea se 12/10/2022 Provider: Diagnosis: Last Documented On 4 8:36AM By TRINH TEJADA ; [facility] Global Ease Inject Pen Needl es 31G X 5 MM Miscellaneous 11/08/2022 Provider: TONY [place] Diagnosis: DIRECTED TEST THREE TIMES DAILY Last Documented On 4 8:36AM By TRINH TEJADA ; [facility] Vitamin D3 125 MCG (5000 UT) Oral Capsule 10/09/2022 Provider: TOM LILLY M.D. Diagnosis: Vitamin D defici ency, unspecified One tablet daily Last Documented On 4 8:36AM By TRINH TEJADA ; [facility] Vitamin B12 1000 MCG Oral Tablet 10/09/2022 Provider: TOM LILLY M.D. Diagnosis: Deficiency of ot her specified B group vitamins One tablet daily Last Documented On 4 8:36AM By TRINH TEJADA ; [facility] Medications Administered [...] tive Last Documented On 4 11:14AM ; [facility] Floxin Otic Allergy 07/26/2014 Active Last Documented On 4 11:14AM ; [facility] Farxiga Intolerance yeast vaginitis 12/24/2021 A ctive Last Documented On 4 11:14AM ; [facility] Demerol Allergy 07/26/2014 Active Last Documented On 4 11:14AM ; [facility] Cipro Allergy 07/26/2014 Active Last Documented On 4 11:14AM ; [facility] cephalexin Allergy 07/26/2014 Active Last Documented On 4 11:14AM ; [facility] Encounters Encounter Provider Location Date Check-In Time Check- Out Time Diagnosis WOUND CHECK - EST PATIENT JULIANO MARTINEZ DO [facility] 4 3:00PM 3:20PM Insurance Includes: Active Insurance Policies Plan Name Member ID Group # Subscriber Relationship Effect reynaldo Dates 1 - [facility] [id number] FAIZAN Webster 03/10/2023 - Unknown 2 - MEDICARE PART A CLAIMS/NGS [id number] FAIZAN Webster Clinical Notes Includes: Clinical Notes from this encounter No Clinical Notes Recorded
--- OUTSIDE RECORDS SUMMARY | 2024-06-15 17:13 | XMS_ITS | Clinical Summary ---
Author Organization [facility] Address [address] Attn: [place] [address] Care Team Providers Care Department Secretary Name Role Phone Unavailable Primary Care Provider [...] bedtime 30 mL 2 4 2:26 PM PUMP SERVICER SUPERVISOR 024 Active tirzepatide (Mounjaro) 2.5 mg/0.5 mL Pen Injector Inject 1 pen injector subcutaneously once a week. 2 mL 3 4 1:58 PM PUMP SERVICER SUPERVISOR 024 Active ezetimibe (Zetia) 10 mg tablet Take 1 Tablet (10 mg) by mouth daily. 90 Tablet 5 4 1:58 PM PUMP SERVICER SUPERVISOR 024 Active torsemide (DEMADEX) 10 mg Tablet Take 1 tablet by mouth daily 90 Tablet 5 6:48 PM PUMP SERVICER SUPERVISOR 024 Active torsemide (DEMADEX) 20 mg tablet TAKE ONE TABLET DAILY ALONG WITH A 10 MG TO EQUAL 30 MG DAILY 30 Tablet 5 5 6:06 PM PUMP SERVICER SUPERVISOR 025 Active insulin glargine-yfgn 100 unit/mL vial Inject 60 units at bedtime 30 mL 2 025 Active insulin lispro (HumaLOG,ADMEL OG) 100 unit/mL pen syringe INJECT 14 UNITS WITH MEALS 15 mL 2 5 3:26 PM PUMP SERVICER SUPERVISOR 025 Active Insulin Syringe-Needle U-100 (BD Insulin Syringe Ultra-Fine) 1 mL 31 gauge x 5/16 Syringe USE FOR INSULIN INJECTIONS 200 Each 5 3:26 PM PUMP SERVICER SUPERVISOR 025 Active ferrous sulfate 325 mg (65 mg iron) tablet Take 1 Tablet (325 mg) by mouth daily. 100 Tablet 5 3:26 PM PUMP SERVICER SUPERVISOR 025 Active patiromer calcium sorbitex (Veltassa) 25.2 [...] daily 30 Packet 11 5 3:26 PM PUMP SERVICER SUPERVISOR 025 Active empagliflozin (JARDIANCE) 25 mg tablet Take 1 Tablet (25 mg) by mouth daily in the morning. 90 Tablet 5 3:26 PM PUMP SERVICER SUPERVISOR 025 Active cefdinir (OMNICEF) 300 mg capsule [...] 5 6:03 PM CDT 025 Active Insulin [place], Disposable, (BD Ultra-Fine Short Pen Needle) 31 gauge x 5/16 Needle USE WITH INSULIN PEN 100 Each 5 6:03 PM CDT 025 Active diazePAM (VALIUM) 10 mg tablet Take 1 Tablet (10 mg) by mouth 3 times daily as needed for anxiety. 84 Tablet 025 Active ergocalciferol (Vitamin D2) 50,000 unit capsule Take 1 Capsule (50,000 Units) by mouth every 7 days. 13 Capsule 5 1:17 PM CDT 025 Active torsemide (DEMADEX) 10 mg Tablet Take 1 Tablet (10 mg) by mouth 1 time daily as needed. 90 Tablet 5 1:17 PM CDT 025 Active ergocalciferol (VITAMIN D2) 50,000 unit capsule Take 1 Capsule (50,000 Units) by mouth every 7 days. 13 Capsule 4 2:26 PM PUMP SERVICER SUPERVISOR 024 2024 Discontinued amoxicillin (AMOXIL) 500 mg capsule Take 1 Capsule (500 mg) by mouth 3 times daily for 7 days. 21 Capsule 5 6:48 PM PUMP SERVICER SUPERVISOR 025 2024 Discontinued benzonatate (TESSALON) 200 mg capsule Take 1 Capsule (200 mg) by mouth every 8 hours as needed for cough. 30 Capsule 5 6:48 PM PUMP SERVICER SUPERVISOR 025 2024 Discontinued diazePAM (VALIUM) 10 mg [...]
--- OUTSIDE RECORDS SUMMARY | 2024-06-15 17:13 | XMS_ITS ---
Care Plan - [facility] Created on: June 15, 2024 FAIZAN BEACH : 1975 Sex: Female Author Organization [facility] Address [address] [place] [address] Phone Care Team Providers Care Counseling Aide Name Role Phone MAXX MEMRBENO, ИВАН Primary Care Provider [phone] MAXX Melgar, TOM Ac Unavailable [phone]
--- OUTSIDE RECORDS SUMMARY | 2024-06-15 17:13 | XMS_ITS ---
Author Organization [facility] Address [address] [place] [phone] Care Team Providers Care Vehicle Dismantler Name Role Phone Kelvin MEMBRENO, Andres Primary Care Provider Rudy Moses Unavailable [phone] ALLERGIES Allergen (clinical drug ingredient) Drug/Non Drug [...] for 30 day(s) Unknown Vitamin D (Ergocalciferol) 34746 UNIT 1 capsule Orally Once a week [...] smoker Encounters Encounter Location Date Provider Diagnosis [address] [id number] 06/23/2023 Rudy Veloz Acute kidney failure , [...] Assessment Notes Treatment Notes Treatment Clinical Notes 06/23/2023 Acute kidney failure, unspecified (ICD-10 - N17.9) 06/23/2023 CHRONIC KIDNEY DISEASE STAGE 3 UNSPECIFIED (ICD-10 - N18.30) low k diet 06/23/2023 Essential (primary) hypertension (ICD-10 - I10) 06/23/2023 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 06/23/2023 Obesity, unspecified (ICD-10 - E66.9) work on wt reduction 06/23/2023 Vitamin D deficiency, unspecified (ICD-10 - E55.9) cont with vit supplement 06/23/2023 Iron deficiency anemia, unspecified (ICD-10 - D50.9) Add feso4 325 mg bid 06/23/2023 Edema, unspecified (ICD-10 - R60.9) increase torsemide 10mg daily Diuretic will aslo improve high k level. PLAN OF TREATMENT Medication Medication Name Sig [...] ORAL CAVITY: mucosa moist LAB SUMMARY: ///// [id number] [id number] K5.44.64.94.75.35.2 [id number] [id number] PO4 4.55.4 Albumin 2.833.1 [id number] EGFR [id number] Hgb8.5 8.49.19.8 Hct26.6 26.127.429.4 WBC9.9 119.48 [id number] Vit D 22.2 20.4 Iron 61 67 [...] for last 5-6 months,stopped recently. Pt states home appliance tech started her on Kerrendia aling with Veltassa. Presenting symptoms Patient reported As above.
[2024-06-15 17:35] LABS: Albumin Level 3.2 g/dL (3.5-5.1); Anion Gap 6 mmol/L (4-12); Blood Urea Nitrogen 48 mg/dL (7-17); Calcium 8.6 mg/dL (8.4-10.2); Carbon Dioxide 25 mmol/L (22-30); Chloride 103 mmol/L (98-107); Estimated Glomerular Filt Rate 15; Glucose 234 mg/dL (65-110); Phosphorus 5.2 mg/dL (2.5-4.5); Potassium 4.4 mmol/L (3.4-5.0); Sodium 134 mmol/L (137-145)
== END 2024-06-15 16:49 | disposition home or self-care (01) ==
LOC: ANHLAB 16:49
PROVIDERS: Visit Provider Internal Medicine Nephrology
DX: N18.4 Chronic kidney disease, stage 4 (severe) (principal)
CPT/HCPCS: 36415; 80069

== ENCOUNTER 2024-07-29 02:56 | Emergency (ER) | payer OTHER, SELFPAY ==
[2024-07-29] VITALS (7 sets, daily range): BP systolic 183–219; BP diastolic 78–93; PULSE 71–81; RESP 12–20; TEMP 36.8; O2SAT 98–100
--- NOTE | ~2024-07-29 | XR_ITS ---
Portable chest x-ray Comparison: 05/13/2024 Clinical History: Shortness of breath Findings: Lungs are clear, without focal consolidation or pleural effusion. Cardiomediastinal silho uette is stable. Bones and soft tissues are unremarkable. Impression: Normal chest. Reviewed, dictated and finalized at location . Impression: Normal chest.
--- NOTE | 2024-07-29 03:06 | PCRCNOTE ---
Patient arrived to ED-4, via EMS with mild SOB, on CPAP; SpO2: 100% on room air, HR 84; lungs clear on auscultation. Patient does claim to wear CPAP at home.
[2024-07-29 03:20] LABS: Basophils Percent Auto 0.5 % (0.2-1.2); Eosinophils Absolute Auto 0.7 K/mm3 (0-0.3); Eosinophils Percent Auto 8.3 % (0-4.4); Hematocrit 26.5 % (37.0-47.0); Hemoglobin 8.9 g/dL (12.0-15.0); Immature Granulocyte Absolute 0.04 K/mm3 (0.00-0.031); Immature Granulocyte Percent A 0.5 % (0-0.5); Lymphocytes Absolute Auto 1.79 K/mm3 (0.9-3.2); Lymphocytes Percent Auto 22.6 % (18.3-44.2); Mean Corpuscular HGB Conc 33.6 g/dl (32-36); Mean Corpuscular Hemoglobin 29.3 pg (26-34); Mean Corpuscular Volume 87.2 fl (80-100); Mean Platelet Volume 10.4 fl (7.4-10.4); Monocytes Absolute Auto 0.5 K/mm3 (0.1-0.6); Monocytes Percent Auto 6.7 % (2.6-8.5); Neutrophils Absolute Auto 4.9 K/mm3 (1.3-6.7); Neutrophils Percent Auto 61.4 % (45.5-73.1); Platelet Count Result 292 k/mm3 (150-375); Red Blood Count 3.04 M/mm3 (4.2-5.4); Red Cell Distribution Width 13.3 % (11.5-14.5); White Blood Count 7.9 K/mm3 (4.5-10.0)
[2024-07-29 03:30] LABS: Alanine Aminotransferase 21 U/L (6-35); Albumin Level 3.2 g/dL (3.5-5.1); Alkaline Phosphatase 70 U/L (38-126); Anion Gap 7 mmol/L (4-12); Aspartate Amino Transferase 26 U/L (14-36); Bilirubin,Total 0.2 mg/dL (0.2-1.3); Blood Urea Nitrogen 56 mg/dL (7-17); Calcium 8.4 mg/dL (8.4-10.2); Carbon Dioxide 24 mmol/L (22-30); Chloride 104 mmol/L (98-107); Estimated CRCL calculation 26 ml/min; Estimated Glomerular Filt Rate 14; Glucose 266 mg/dL (65-110); Sodium 135 mmol/L (137-145)
--- NOTE | 2024-07-29 03:35 | ED.GENADULT ---
HPI - General Adult General Chief complaint: Shortness of Breath/Dyspnea Stated complaint: DIFFICULTY IN BREATHING X 2 HOURS, ON CPAP History of Present Illness HPI narrative: 49-year-old female with history of chronic kidney disease hypertension present to the emergency department for evaluation for increased difficulty breathing tonight. Patient states that she had been holding on her diuretics due to being below her typical weight and not feeling fluid overloaded. Patient did restart her diuretics today at 11:00 a.m.. Tonight patient was going to bed and started having worsening shortness of breath. Patient did try her CPAP and felt this helped to a small extent. Patient did call EMS due to concerns for her persistent symptoms and when EMS arrived they state the patient was very anxious. Patient's anxiety did improve when she was placed on the EMS BiPAP. Upon arrival to the emergency department patient was saturating at 100% BiPAP and had lungs that were clear to auscultation. Related Data Home Medications ?Medication ?Instructions ?Recorded ?Confirmed ?Last Taken ?Type amlodipine 10 mg tablet 10 mg PO HS 05/13/24 07/26/24 05/11/24 History ascorbic acid (vitamin C) 500 mg 500 mg PO DAILY 05/13/24 07/26/24 05/12/24 History chewable tablet (Fruit C-500) carvedilol 25 mg tablet 25 mg PO Q12H 05/13/24 07/26/24 05/12/24 History empagliflozin 25 mg tablet 25 mg PO DAILY 05/13/24 07/26/24 05/12/24 History (Jardiance) ergocalciferol (vitamin D2) 1,250 1,250 mcg PO WEEKLY 05/13/24 07/26/24 Unknown History mcg (50,000 unit) capsule (Vitamin D2) ferrous sulfate 325 mg (65 mg 325 mg PO DAILY 05/13/24 07/26/24 05/12/24 History iron) tablet folic acid 1 mg tablet 1 mg PO DAILY 05/13/24 07/26/24 05/12/24 History insulin lispro 100 unit/mL 15 unit subcut AC 05/13/24 07/26/24 05/12/24 History subcutaneous pen insulin glargine 100 unit/mL (3 35 unit subcut BID 07/26/24 07/26/24 Unknown History mL) subcutaneous pen (Lantus Solostar U-100 Insulin) insulin syringe-needle U-100 1 mL 07/26/24 07/26/24 Unknown History 31 gauge x 5/16 torsemide 40 mg tablet (Soaanz) 40 mg PO DAILY 07/26/24 07/26/24 Unknown History Allergies Allergy/AdvReac Type Severity Reaction Status Date / Time cephalexin Allergy Mild RASH Verified 07/26/24 13:22 ofloxacin Allergy Mild RASH Verified 07/26/24 13:22 ciprofloxacin Allergy Unknown Hives,Rash Verified 07/26/24 13:22 meperidine Allergy Unknown Hives Verified 07/26/24 13:22 morphine Allergy Unknown Hives Verified 07/26/24 13:22 albuterol AdvReac Migraine Verified 07/26/24 13:22 Review of Systems Review of Systems: All systems reviewed & are unremarkable except as noted in HPI and below PMFSH Past Medical History Medical History Pneumonia Heavy periods Acute on chronic anemia Rectal bleeding Morbid obesity Obstructive sleep apnea on CPAP Insulin dependent type 2 diabetes mellitus Chronic anemia Chronic kidney disease, stage 4 (severe) Hypertension Vestibular migraine Surgical History Surgical History History of section Family History Family History Father Diabetes mellitus Mother Hypertension COPD (chronic obstructive pulmonary disease) Social History Social History Social History: Surrogate medical decision maker: Marco Awarren Tavares, spouse. Code status: Full code. Smoking status: Never smoker Tobacco type: cigarettes Alcohol intake: never Substance use: never Substance use type: does not use Do You Feel Safe in your Home?: Yes Lack of Transportation: No Lack of Food: Never True Current Housing: I Have Housing Concerned About Future Housing: No Difficulty Paying Gas/Electric Bills: No Difficulty Paying for Meds: No Currently Unemployed: No Education: Associate Degree Difficulty w/ Childcare or Family Care: No Living arrangements: with family Additional living arrangements comments: Lives with spouse in [place]. They have 3 grown children. 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 Gender identity (if verbalized by the patient): Female Spiritual care concerns: No Course Vital Signs Vital signs: Vital Signs Temperature 98.2 F 07/29/24 02:52 Pulse Rate 81 07/29/24 02:52 Respiratory Rate 16 07/29/24 02:52 Blood Pressure 216/93 H 07/29/24 02:52 Pulse Oximetry 100 07/29/24 02:52 Oxygen Delivery Room Air 07/29/24 02:52 Temperature 98.2 F 07/29/24 02:52 Pulse Rate 74 07/29/24 06:09 Respiratory Rate 14 07/29/24 06:09 Blood Pressure 197/85 H 07/29/24 06:09 Pulse Oximetry 99 07/29/24 06:09 Oxygen Delivery Room Air 07/29/24 05:34 Medical Decision Making MDM Narrative Medical decision making narrative: 49-year-old female history chronic kidney disease and hypertension presented emergency department for evaluation for shortness of breath. Upon arrival emergency department patient was saturating 100% on room air with clear lung sounds and no difficulty breathing. Patient is currently afebrile with no leukocytosis and hemoglobin of 8.9. This is similar to her baseline. Patient does have a creatinine of 3.49 and BUN 56 which is also similar to her baseline. Patient does have a proBNP of 1270. Patient was negative for influenza RSV and for COVID. Chest x-ray does show cardiomegaly with no evidence of pulmonary edema. Patient's blood pressure was elevated with a systolic blood pressure of 187. Patient declined any hydralazine stating that she felt this was most likely elevated due to anxiety and due to the painful cough. Patient states she is afraid if she gets additional medications for blood pressure it will cause her blood pressure to bottom out. On re-evaluation patient states she does feel improved and patient is comfortable the plan for discharge home. All questions concerns were addressed. Differential Diagnosis Differential Diagnosis: Pneumonia, CHF, asthma, COVID, RSV, hypertensive urgency Vital Signs Vital Signs: Vital Signs Temperature 98.2 F 07/29/24 02:52 Pulse Rate 81 07/29/24 02:52 Respiratory Rate 16 07/29/24 02:52 Blood Pressure 216/93 H 07/29/24 02:52 Pulse Oximetry 100 07/29/24 02:52 Oxygen Delivery Room Air 07/29/24 02:52 Temperature 98.2 F 07/29/24 02:52 Pulse Rate 74 07/29/24 06:09 Respiratory Rate 14 07/29/24 06:09 Blood Pressure 197/85 H 07/29/24 06:09 Pulse Oximetry 99 07/29/24 06:09 Oxygen Delivery Room Air 07/29/24 05:34 Lab Data Lab results reviewed: Yes I reviewed the patient's lab results. 07/29/24 03:16 07/29/24 03:16 Labs: Lab Results 07/29/24 Range/Units 03:16 WBC 7.9 (4.5-10.0) K/mm3 RBC 3.04 L (4.2-5.4) M/mm3 Hgb 8.9 L (12.0-15.0) g/dL Hct 26.5 L (37.0-47.0) % MCV 87.2 (80-100) fl MCH 29.3 (26-34) pg MCHC 33.6 (32-36) g/dl RDW 13.3 (11.5-14.5) % Plt Count 292 (150-375) k/mm3 MPV 10.4 (7.4-10.4) fl Immature Gran % (Auto) 0.5 (0-0.5) % Neut % (Auto) 61.4 (45.5-73.1) % Lymph % (Auto) 22.6 (18.3-44.2) % Hardeman % (Auto) 6.7 (2.6-8.5) % Eos % (Auto) 8.3 H (0-4.4) % Baso % (Auto) 0.5 (0.2-1.2) % Lymph # (Auto) 1.79 (0.9-3.2) K/mm3 Hardeman # (Auto) 0.5 (0.1-0.6) K/mm3 Eos # (Auto) 0.7 H (0-0.3) K/mm3 Baso # (Auto) 0.0 (0.0-0.1) K/mm3 Abs Immat Gran (auto) 0.04 H (0.00-0.031) K/mm3 Absolute Neuts (auto) 4.9 (1.3-6.7) K/mm3 Absolute Nucleated RBC 0.000 (0.0-0.012) K/mm3 Nucleated RBC % 0.0 (0.0-0.2) % Sodium 135 L (137-145) mmol/L Potassium 4.0 (3.4-5.0) mmol/L Chloride 104 (98-107) mmol/L Carbon Dioxide 24 (22-30) mmol/L Anion Gap 7 (4-12) mmol/L BUN 56 H (7-17) mg/dL Creatinine 3.49 H (0.7-1.0) mg/dL Estim Creat Clear Calc 26 ml/min Estimated GFR 14 L (59 - ) Glucose 266 H (65-110) mg/dL Calcium 8.4 (8.4-10.2) mg/dL Total Bilirubin 0.2 (0.2-1.3) mg/dL AST 26 (14-36) U/L ALT 21 (6-35) U/L Alkaline Phosphatase 70 (38-126) U/L NT-Pro-B Natriuret Pep 1270 H (19.9-100) pg/mL Total Protein 6.0 L (6.3-8.2) g/dL Albumin 3.2 L (3.5-5.1) g/dL Influenza A (RT-PCR) Negative (Negative) Influenza B (RT-PCR) Negative (Negative) RSV (RT-PCR) Negative (Negative) SARS-CoV-2 RNA (RT-PCR) Negative (Negative) Imaging Data Radiologist's impression: Impressions Chest X-Ray 07/29/24 05:29 Impression: Normal chest. Discharge Plan Discharge Clinical Impression: Acute dyspnea, Hypertension Patient Disposition: Home Condition: Stable Instructions: Antibiotic Form Additional Instructions: Home medications as directed for hypertension and fluid overload. Have close follow-up with your primary care physician. If you have any worsening symptoms please call or return to the emergency department. Patient Language: [place] Prescriptions: No Action insulin glargine [Lantus Solostar U-100 Insulin] 100 unit/mL (3 mL) insulin pen 35 unit SUBCUT BID (DME) insulin syringe-needle U-100 1 mL 31 gauge x 5/16 syringe MISCELLANEOUS Soaanz 40 mg tablet 40 mg PO DAILY ascorbic acid (vitamin C) [Fruit C-500] 500 mg tablet,chewable 500 mg PO DAILY ferrous sulfate 325 mg (65 mg iron) tablet 325 mg PO DAILY carvedilol 25 mg tablet 25 mg PO Q12H amlodipine 10 mg tablet 10 mg PO HS folic acid 1 mg tablet 1 mg PO DAILY Jardiance 25 mg tablet 25 mg PO DAILY ergocalciferol (vitamin D2) [Vitamin D2] 1,250 mcg (50,000 unit) capsule 1,250 mcg PO WEEKLY Rx Instructions: friday insulin lispro 100 unit/mL insulin pen 15 unit SUBCUT AC Follow-up/Referrals: UNKNOWN,DOCTOR [Primary Care Provider] -
[2024-07-29 03:41] LABS: NT Pro B Type Natriuretic Pept 1270 pg/mL (19.9-100)
--- OUTSIDE RECORDS SUMMARY | 2024-07-29 03:50 | XMS_ITS | Clinical Summary ---
Author Organization [facility] Address [address] [place] [id number] Care Team Providers Care Commercial Lending Vice President Name Role Phone Matias Warren MD Primary Care Provider + [phone] Allergies Active Allergy Reactions Criticality Noted Date [...] 0.6 oz pur e alcohol) [facility] Utilities Answer Date Recorded In the [...] often do you attend chur ch or evangelical services? Never 07/23/2023 Do you belong to any clubs o r organizations such as latter-day groups, unions, fraternal or athletic groups, or [...] on file Legal Sex Female 11:36 AM [employer] Gender Identity Not on file Sexual Orientation [...] [employer] MEDICARE [employer] MEDICARE [facility] MEDICARE ADVANTAGE Advance Directives For more information, please contact: [phone] * Full Code (Latest Code Status on File) Date Activated Date Inactivated Comments 07/23/2023 3:39 PM 07/25/2023 6:34 PM Care Teams Commercial Lending Vice President Relationship Specialty Start Date End Date Matias Warren MD [address] [place] [id number] PCP - General Internal Medicine 07/20/23
--- OUTSIDE RECORDS SUMMARY | 2024-07-29 03:50 | XMS_ITS | Clinical Summary ---
Author Organization [facility] Address [address] [place] [address] Care Team Providers Care Report Analyst Name Role Phone Teresita Cortez MD Primary Care Provider [phone] Source Comments [facility] Affiliates and Associated Physician Practices is amultiple site organization consisting of ambulatory clinics and hospital sitesin [place], [place], [place] and [place]. This disclosure is being madepursuant to the Care Everywhere program and may not contain all information available regarding this patient. Last updated 17.[facility] [employer] Allergies Active Allergy Reactions Criticality Noted Date Comments Cephalexin Rash Medium 12/27/2019 Ciprofloxacin Urticaria High 12/20/2011 Fluoxetine Unknown 12/27/2019 Meperidine Unknown High 12/20/2011 Low blood pressure Medications * Be aware that medications may not be up to date on this document. Alwaysverify current medications with the patient. ALPRAZolam (XANAX) 2 MG tablet Take 2 mg by mouth once daily Active amLODIPine (NORVASC) 10 MG tablet Take 10 mg by mouth once daily 0 Active meclizine (ANTIVERT) 25 MG tablet Take 50 mg by mouth once daily Active insulin lispro (HUMALOG;ADMEL OG) 100 UNIT/ML pen Inject 1 Units subcutaneously 3 times daily Sliding scale 0 Active Immunizations Immunization Administration Dates Next Due INFLUENZA VACCINE, TRIV. [...] of Binge Drinking Not on file 12/08 Comments Unknown Sex and Gender Information Value Date Recorded Sex Assigned at Not on file Legal Sex Female 8:44 AM CDT Gender Identity Not on file Sexual [...] (1 - Tdap) 03/11/2004 03/10/2004 COVID-19 VACCINE (1 - 2023-2 5 season) 2023 DEPRESSION SCREENING [...] on patient's age to complete this topic Insurance MEDICAID - OUT OF STATE MEDICARE Care Teams Report Analyst Relationship Specialty Start Date End Date Teresita Cortez MD [address] [place] [address] [address] [place] [address] PCP - General 05/07/19
--- OUTSIDE RECORDS SUMMARY | 2024-07-29 03:50 | XMS_ITS | CONTINUITY OF CARE DOCUMENT ---
Author Name cecilia brooks Address Unknown Organization [facility] Address [address] [place] [address] Phone [phone] Care Team Providers Care Instrument Mechanics Supervisor Name Role Phone Nicole MEMBRENO, Hal Unavailable Hal Rivera MD Unavailable DR TMO LILLY MD Unavailable PROBLEMS Condition Status Date [...] crp and low lpa active Leyla Ventimiglia MANAGER MATERIALS MANAGEMENT DID NOT GIOVANNA STATIN TUBAL LIGATION STERILIZATION STATUS completed - Primo Hanks NP ANGINA PECTORIS;WILL NUCLEAR completed 201 - Primo Hanks NP SLEEP APNEA active Primo Hanks NP ANXIETY DISORDER completed - Primo Hanks NP UPPER RESPIRATORY INFECTION, ACUTE completed - Primo Hanks PRESSURE DISPATCHER Hypertension;neg duplex active Hal lundberg MD Anasarca completed - Hal Rivera MD Vitamin D deficiency active Primo Hanks PRESSURE DISPATCHER Screening active Hal Rivera MD Renal disease, chronic, mild;neg us and renal angio active Hal Rivera MD Microalbuminuria active Hal Rivera MD Folate-deficiency active Hal Rivera MD B12 deficiency active Hal Rivera MD covid 19;2020;HAD VACCINE active Hal sullivan MD Hypertriglyceridemia active Leyla Saulmiandrew MANAGER MATERIALS MANAGEMENT VASCA[A NOT COVRED CAD;NEG CAROTID active Hal Rivera MD Elevated LFT's active Hal Rivera MD Diastolic CHF active Hal Rivera MD Pulmonary hypertension active Hal Rivera MD Chronic back pain active Leyla barlow MANAGER MATERIALS MANAGEMENT ENCOUNTERS Date Type Provider Location Encounter Diag nosis 3 - 3 In-person encounter Office Visit Hal Rivera MD [place] Hyperlipidemia;with high crp and low lpaHypertriglyceridemiaChronic back pain 1 - 1 In-person encounter Office Visit Hal Rivera MD [facility] Renal disease, chronic, mild;neg us and renal angioCAD;NEG CAROTIDElevated LFT'sDiastolic CHFPulmonary hypertension 8 - 8 In-person encounter Office Visit Hal Rivera MD [facility] Office 9 - 1 In-person encounter Office Visit Eyad Miramontes MD [facility] Office 0 - 0 In-person encounter Office Visit Hal Rivera MD [facility] ScreeningRenal disease, chronic, mild;neg us and renal angiocovid ;HAD VACCINE 1 - 1 In-person encounter Office Visit Hal Rivera MD [facility] DYSPNEA ON EXERTIONDIZZINESS;WILL WUAnasarcaRenal disease, chronic, mild;neg us and renal angioMicroalbuminuriaFolate-defici encyB12 deficiency 6 - 7 In-person encounter Office Visit Hal Rivera MD [facility] HTN WHITE COAT;LABS [place] 2010OBESITYANEMIA, IRON DEFICIENCYTUBAL LIGATION STERILIZATION STATUSANGINA PECTORIS;WILL NUCLEARSLEEP APNEAANXIETY DISORDERUPPER RESPIRATORY INFECTION, ACUTEHypertension;neg duplexVitamin D deficiency 3 - 9 In-person encounter Office Visit [facility] Office 4 - 0 In-person encounter Office Visit [facility] Office 5 - 9 In-person encounter Office Visit [facility] Office 7 - 3 In-person encounter Office Visit [facility] Office 4 - 4 In-person encounter Office Visit Hal Rivera MD [place] OBESITYDIABETES MELLITUSDYSPNEA ON EXERTIONANEMIA, IRON DEFICIENCYHyperlipidemia;with high crp and low lpaSLEEP APNEA VITAL SIGNS Date Observation Value Provider Body Mass Index (Ratio) 54.20 kg/m2 Luli Rivera MD respiratory rate E&M 16 /min Leyla Ventimiglia MANAGER MATERIALS MANAGEMENT blood pressure, diastolic 80 mm[Hg] La ryan Huntley blood pressure, systolic 168 mm[Hg] Gaby dubois Huntley oxygen saturation, oximetry 96 % [facility] pulse rate 85 /min [facility] blood pressure, cuff size regular La ryan Huntley weight E&M 315.8 [lb_av] Laryan Cohn height E&M 64 [in_i] [facility] Body Mass Index (Ratio) 54.92 [...] blood pressure, cuff size large Ke rri Cambpelluenegurpreet blood pressure, diastolic 76 mm[Hg] Ke rri Campbelluenenfelddiana blood pressure, systolic 130 mm[Hg] Callum Stock oxygen saturation, oximetry 98 % Gris Stock respiratory rate E&M 12 /min Gris beyelder pulse rate 84 /min Gris Laureano lder weight E&M 300 [lb_av] Gris Laureano er height E&M 64 [in_i] Gris Swartze [facility] Body Mass Index (Ratio) 54.41 kg/m2 Luli [...] injector subcutaneously once a week Leyla Ventimiglia MANAGER MATERIALS MANAGEMENT torsemide 10 mg tablet active Leyla Ventimiglia MANAGER MATERIALS MANAGEMENT torsemide 20 mg tablet active Leyla Ventimiglia MANAGER MATERIALS MANAGEMENT Zetia 10 mg tablet active TAKE 1 TABLET BY MOUTH EVERY DAY Leyla Ventimiglia MANAGER MATERIALS MANAGEMENT Soaanz 40 mg tablet active 1 tablet [...] by mouth twice a day - [facility] Nexlizet 180-10 mg tablet completed Take 1 tablet by mouth once a day - Leylaharleen Saullovelace medical cent[facility] DAMICOP Kerendia 20 mg tablet [...] mouth once a day - Leyla Sarina [facility] aspirin 81 mg tablet,chewable active Take 1 tablet by mouth once a day Hal Rivera MD cyanocobalamin (vitamin B-12) 1,000 mcg capsule active TAKE 1 CAPSULE BY MOUTH EVERY DAY [facility] ergocalciferol (vitamin D2) 1,250 mcg (50,000 unit) capsule active Take 1 capsule by mouth once a week [facility] torsemide 40 mg tablet completed every [...] TAKE 1 TABLET BY MOUTH ONCE DAILY [facility] Ozempic 0.25 mg or 0.5 mg(2 [...] history of marijuana use no Leyla Ventimiglia [facility] drug use no Leyla Ventimig desiree [facility] alcohol use no Leyla Ventimig desiree [facility] smoking status Former smoker Leyla Venti miglia [facility] smoking status Former smoker [place] Stoll s smoking status Former smoker [place] Stoll s number of grandchildren Eyad Leon NP smoking status Former smoker [place] Stoll s social history E&M S moking History: Estrella jarvis is a former smoker. Hla Rivera MD social history reviewed E&M revi [...] munoz smoking status former smoker Gris Harden [facility] physical exercise, frequency, days per week [...] Coverage type [employer] party ID [facility] [id number] ADVANCE DIRECTIVES Name Date DISCUSSED - NO DECISION MADE TREATMENT PLAN Date Name Performer [id number],C,s core 54, neg stres in 05 and nuc in 11 Hal Rivera MD [id number],C,34 Hal sullivan MD [id number],S, 9 .4 Hal Rivera MD [id number],S, Hal lundberg MD [id number],S, 3 70 Hal Rviera MD [id number],B, Hal lundberg MD [id number],B, Hal lundberg MD [id number],C,N EEDS COLONS S he is anemic and has a hx of iron deficiency. Her anemia is microcytic and I suspect that she is iron deficient again given her recent vegetarian diet. I will check an iron panel and she will take PO iron for now as well as vitamin B12. She may need IV iron infusions as well. Hal Rivera MD [id number],S,n eg echo, neg aaa n eg pro, heg holter, neg brai ct n eg stres 05, neg carotdi duples n eg nuc 11 Hal Rivera MD [id number],B,3 6 2 5 Hal Rivera MD [id number],S, H er updated medication list for this [...] rior BP: 169/87 (11/07/2022) Hal Rivera MD [id number],S, Hal lundberg MD [id number],S, C ontinue CPAP use. Hal Rivera MD [id number],S, Hal Serot toño MEMBRENO [id number],S, Hal Serot a [id number],S,370 Hal luis MD [id number],S,some day will need col Hal Rivera MD [id number],S,9.4 Hal luis MD [id number],S,25 Hal sullivan MD [id number],B, n m pro Hal Rivera MD [id number],S, n m pro Hal Nicole MEMBRENO [id number],S,n eg pro, heg holter, neg brai ct n eg stres 05, neg carotdi duples n eg nuc 11 Hal Rivera MD [id number],C,nm pro Hal Rivera MD [id number],C,neg stres 05, neg carotdi duples Hal Rivera MD [id number],C,Continue CPAP use. Primo Duboiscarolin PRESSURE DISPATCHER [id number],C,T he patient has severe vitamin D deficiency. I will start vitamin D 50,000 units per week. Primo Roncarolin PRESSURE DISPATCHER [id number],C,S he is anemic and has a hx of iron deficiency. Her anemia is microcytic and I suspect that she is iron deficient again given her recent vegetarian diet. I will check an iron panel and she will take PO iron for now as well as vitamin B12. She may need IV iron infusions as well. Primo Hanks PRESSURE DISPATCHER [id number],C,N ot well controlled. She did not tolerate Metformin in the past due to GI issues. I will add Jardiance 25mg qday as noted above and I will also add Ozempic. She will hopefully be able to decrease and eventually with further medication adjustment, come off insulin entirely. Primo Hanks PRESSURE DISPATCHER [id number],C,L ipids are significantly elevated. I will add Rosuvastatin 20mg qday and Ezetimibe 10mg qday. Her lipids will also see improvement with better glycemic control. Primo Hanks PRESSURE DISPATCHER [id number],C,B lood pressure is elevated. I will add Carvedilol 12.5mg BID. I will continue Amlodipine and Irbesartan without change. Diuresis will also improve her blood pressure with Jardiance and Kerendia. I will stop Clonidine as it is short acting and causes rebound hypertension. She will be better served with longer acting medications that are taken routinely. Primo Hanks PRESSURE DISPATCHER [id number],C,T he patient has generalized anasarca and significant [...] qday and Kerendia 10m qday. Primo Hanks PRESSURE DISPATCHER Cardiology:patient h as chronic back that limits her ability to walk more than 50 feet at a time. She has now purchased a scVignyan Consultancy Servicester d/t these mobility issues H ave recommended PT for back pain along with gait and balance training Kern Valleytorsten [facility] Cardiology:continue with yelitza sarah stockings [facility] Cardiology:Last Hgb A1C 8% in [...] 1 tablet by mouth once a day [facility] Cardiology:The patie nt is using CPAP on a regular basis. The patient has been benefiting from therapy and should continue use. [facility] Cardiology:Remains o n Jardiance A ppears [...] 1 tablet by mouth once a day [facility] Cardiology:LDL 112 p atient does [...] Take 1 tablet by mouth every day Kern Valleytorsten [facility] Cardiology:BP 168/80 above goal, reports [...] 1 tablet by mouth once a day Kern Valleytorsten [facility] Cardiology:on iron and last hgb was 8.6 Kern Valleytorsten [facility] Cardiology:on replacement therap y Kern Valleytorsten [facility] :neg hep panel Hal Rivera [...] MD Cardiology Hal Rivera MD Cardiology:9.4 Hal Rviera MD Cardiology Hal Rivera MD Cardiology: R [...] Cardiology: C ontinue CPAP use. Angelajose Lopezaren PRESSURE DISPATCHER Cardiology:CRP 6.3 H er updated medication list for this problem includes: Ezetimibe 10 Mg Tablet (Ezetimibe) ..... Take 1 tablet by mouth once a day Rosuvastatin 20 Mg Tablet (Rosuvastatin) ..... Take 1 tablet by mouth once a day Angela Johnluri PRESSURE DISPATCHER Cardiology: N ARTI LESTERInes S he is anemic and has a hx of iron deficiency. Her anemia is microcytic and I suspect that she is iron deficient again given her recent vegetarian diet. she will take PO iron for now as well as vitamin B12. She may need IV iron infusions as well. 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 Was on ozempic, which controlled her sugars well per pt. s topped due to impaired renal function e ncoraged to resume Angela Johnluri PRESSURE DISPATCHER Cardiology: 3 70 [facility]PATCH[facility] Cardiology: H er updated medication list for this problem includes: Ezetimibe 10 Mg Tablet (Ezetimibe) ..... Take 1 tablet by mouth once a day Rosuvastatin 20 Mg Tablet (Rosuvastatin) ..... Take 1 tablet by mouth once a day Angela Nalluri PRESSURE DISPATCHER Cardiology:swelling improved with toresemide, still some present. Reports mild pain. V enous duplex shows severe venous insufficiency bilaterally r ecommeded to wear compression stockings and ambulate more [facility]luri PRESSURE DISPATCHER Cardiology: s core 54, neg stres in 05 and nuc in 11 [facility] PRESSURE DISPATCHER Cardiology:Renal US showed Small left kidney without evidence of nephrolithiasis, hydronephrosis, or solid renal mass. R enal duplex: no renal artery stenosis bilaterally E GFR 34, cr 1.8 C T vs angiogram CO2, to avoid/raduce dye. Explained risks and benefits. p atient would like to proceed with renal angiogram. with CO2 Angela Nalluri PRESSURE DISPATCHER Cardiology: g fr 34 Angelajose Lopezluri PRESSURE DISPATCHER :score 54, neg stres in 05 and [...] medications that are taken routinely. Primo Hanks PRESSURE DISPATCHER Cardiology:The patie nt has generalized anasarca and [...] One tab. daily Orders: C omplete Echo (CPT-32599) H olter Monitor 24 Hr (CPT-14735) S pirometry (CPT-59283) S tress Test - Adenosine (71737) Hal Rivera MD follow up: O rders: C omplete Echo (CPT-59479) H olter Monitor 24 Hr (CPT-39851) S pirometry (CPT-93844) S tress Test - Adenosine (77702) Hal Rivera MD follow up: H er updated medication list for this problem includes: Aspirin 81 Mg Tabs (Aspirin) ..... One tab. daily Altace 5 Mg Caps (Ramipril) ..... One tab. daily Orders: C omplete Echo (CPT-32766) H olter Monitor 24 Hr (CPT-17310) S pirometry (CPT-64832) S tress Test - Adenosine (29021) Hal Rivera MD follow up: H er updated medication list for this problem includes: Aspirin 81 Mg Tabs (Aspirin) ..... One tab. daily Altace 5 Mg Caps (Ramipril) ..... One tab. daily Orders: C omplete Echo (CPT-39636) H olter Monitor 24 Hr (CPT-63408) S pirometry (CPT-77844) S tress Test - Adenosine (28685) Hal Rivera MD follow up: H er updated medication list for this problem includes: Aspirin 81 Mg Tabs (Aspirin) ..... One tab. daily Pravachol 40 Mg Tabs (Pravastatin sodium) ..... One tab. daily Altace 5 Mg Caps (Ramipril) ..... One tab. daily Orders: C omplete Echo (CPT-84195) H olter Monitor 24 Hr (CPT-49358) S pirometry (CPT-37273) S tress Test - Adenosine (33605) Hal Rivera MD follow up: H er updated medication list for this problem includes: Aspirin 81 Mg Tabs (Aspirin) ..... One tab. daily Orders: C omplete Echo (CPT-53731) H olter Monitor 24 Hr (CPT-94208) S pirometry (CPT-93069) S tress Test - Adenosine (44854) Hal Rivera MD follow up: O rders: C omplete Echo (CPT-26375) H olter Monitor 24 Hr (CPT-79479) S pirometry (CPT-18827) S tress Test - Adenosine (84631) Hal Rivera MD follow up: O rders: C omplete Echo (CPT-53104) H olter Monitor 24 Hr (CPT-62075) S pirometry (CPT-35388) S tress Test - Adenosine (10931) Hal Rivera MD follow up Hal Rivera [...]
--- OUTSIDE RECORDS SUMMARY | 2024-07-29 03:50 | XMS_ITS | Continuity of Care Document ---
Author Organization [facility] Address [address] [place] [address] [place] [address] Phone Care Team Providers Care Blade Grinder Name Role Phone Rocky Spence MD Unavailable [...] Copied on Encounter OFFICE/OUTPA TIENT VISIT, EST [facility], [address] [place], [address], tel:[phone] [facility] Medicine DM (chief complaint)s leep apnea1 (chief complaint)p roteinuria1 (chief complaint)l ow iron (chief complaint)a nxiety1 (chief complaint) Type 2 diabetes mellitus with diabetic nephropathyEssenti al (primary) hypertensionSleep apneaBody mass index (BMI) 50-59.9 , adult 7 Jordy Hidalgo. [address], [place], [place], [address] , [place]. tel:[phone] Referring Provider: Rocky Spence [address], [place], [place], [address]. tel:[phone] [facility], [address] [place], [address], [place] tel:[phone] [facility] No Information 7 Jordy Hidalgo. [address], [place], [place], [address] , [place]. tel:[phone] OFFICE/OUTPA TIENT VISIT, EST [facility], [address] [place], [address], [place] tel:[phone] [facility] DM1 (chief complaint)H TN (chief complaint)a neity1 (chief complaint)o beisty1 (chief complaint) Type 2 diabetes mellitus without complicationsEssen tial (primary) hypertensionBody mass index (BMI) 50-59.9 , adultAnxiolytic dependence Fercho- 7 Jordy Soto [address], [place], [place], [address] , [place]. tel:[phone] [facility], [address], [place], [place], [address], [place] tel:[phone] [facility] No Information 7 Jordy Soto [address], [place], [place], [address] , [place]. tel:[phone] OFFICE/OUTPA TIENT VISIT, [facility], [address], [place], [place], [address], [place] tel:[phone] [facility] HTN (chief complaint)s leep apnea1 (chief complaint)a nxiety1 (chief complaint)D M (chief complaint) Sleep apneaEssential (primary) hypertensionType 2 diabetes mellitus without complicationsAnxio lytic dependence 7 Jordy Soto [address], [place], [place], [address] , [place]. tel:[phone] [facility], [address], [place], [place], [address], [place] tel:[phone] [facility] No Information 7 Jordy Soto [address], [place], [place], [address] , [place]. tel:[phone] OFFICE/OUTPA TIENT VISIT, [facility], [address], [place], [place], [address], [place] tel:[phone] [facility] DM (chief complaint)H TN (chief complaint)a nxiety1 (chief complaint)a nemia1 (chief complaint) Type 2 diabetes mellitus without complicationsAnxio lytic dependenceEssentia l (primary) hypertensionBody mass index (BMI) 50-59.9 , adult Fe- 7 Jordy Soto [address], [place], [address] , [place]. tel:[phone] Referring Provider: Wilfred [address], [place], [place], [address]. tel:[phone] OFFICE/OUTPA TIENT VISIT, EST [facility], [address], [place], [place], [address], [place] tel:[phone] [facility] HTN (chief complaint)a nxiety1 (chief complaint)D M (chief complaint) Essential (primary) hypertensionType 2 diabetes mellitus without complicationsAnxio lytic dependenceBody mass index (BMI) 50-59.9 , adult Feb- 6 Jrody Hidalgo. [address], [place], [place], [address] , [place]. [phone] Referring Provider: Wil[address], [place], [place], [address]. tel:[phone] PREV VISIT, EST, AGE 40-64 [facility], [address], [place], [place], [address], [place] tel:[phone] [facility] PHysical (chief complaint) Encntr for general adult medical exam w/o abnormal findings 6 Jordy Hidalgo. [address], [place], [place], [address] , [place]. [phone] Referring Provider: Wil[address], [place], [place], [address]. tel:[phone] OFFICE/OUTPA TIENT VISIT, EST [facility], [address], [place], [place], [address], [place] tel:[phone] [facility] DM (chief complaint)H TN (chief complaint)a nxiety1 (chief complaint)i silvino deficiecy (chief complaint) Iron deficiencyEssentia l (primary) hypertensionAnxiol ytic dependenceType 2 diabetes mellitus without complications 0 6 Jordy Hidalgo. [address], [place], [place], [address] , [place]. [phone] [facility], [address], [place], [place], [address], [place] tel:[phone] [facility] No Information 6 Jordy Hidalgo. [address], [place], [place], [address] , [place]. tel:[phone] OFFICE/OUTPA TIENT VISIT, [facility], [address], [place], [address], [place] tel:[phone] [facility] HTN (chief complaint)D M (chief complaint)a nixety1 (chief complaint) Type 2 diabetes mellitus without complicationsEssen tial (primary) hypertensionAnxiol ytic dependence 6 Jordy Hidalgo. [address], [place], [address] , [place]. [phone] Referring Provider: iWlfred [address], [place], [address]. tel:[phone] OFFICE/OUTPA TIENT VISIT, [facility], [address], [place], [place], [address], [place] tel:[phone] [facility] DM (chief complaint)a nxiety1 (chief complaint)H TN (chief complaint) Type 2 diabetes mellitus without complicationsAnxio lytic dependenceEssentia l (primary) hypertension 6 Jordy Hidalgo. [address], [place], [address] , [place]. [phone] Referring Provider: Wil[address], [place], [place], [address]. tel:[phone] OFFICE/OUTPA TIENT VISIT, [facility], [address], [place], [place], [address], [place] tel:[phone] [facility] HTN (chief complaint)D M (chief complaint)a nxiety1 (chief complaint) Essential (primary) hypertensionType 2 diabetes mellitus without complicationsAnxio lytic dependence 6 Jordy Hidalgo. [address], [place], [address] , [place]. tel:[phone] Referring Provider: Wil[address], [place], [place], [address]. tel:[phone] OFFICE/OUTPA TIENT VISIT, [facility], [address], [place], [address], [place] tel:[phone] [facility] DM (chief complaint)i silvino deficiency (chief complaint)p roteinuria (chief complaint)H TN (chief complaint) Type 2 diabetes mellitus without complicationsProte inuriaIron deficiencyEssentia l (primary) hypertension 6 Jordy Hidalgo. [address], [place], [address] , [place]. tel:[phone] Referring Provider: Wil[address], [place], [place], [address]. tel:[phone] OFFICE/OUTPA TIENT VISIT, [facility], [address], [place], [address], [place] tel:[phone] [facility] DM (chief complaint)a nxiety1 (chief complaint)H TN (chief complaint) Type 2 diabetes mellitus without complicationsAnxio lytic dependenceEssentia l (primary) hypertensionTachyc ardia 6 Jordy Hidalgo. [address], [place], [address] , [place]. [phone] Referring Provider: Wil[address], [place], [place], [address]. tel:[phone] OFFICE/OUTPA TIENT VISIT, [facility], [address], [place], [address], [place] tel:[phone] [facility] HTN1 (chief complaint)d M (chief complaint)a nxiety1 (chief complaint) Type 2 diabetes mellitus without complicationsEssen tial (primary) hypertensionAnxiol ytic dependence 6 Jordy Hidalgo. [address], [place], [address] , [place]. tel:[phone] Referring Provider: Wil[address], [place], [place], [address]. tel:[phone] OFFICE/OUTPA TIENT VISIT, [facility], [address], [place], [place], [address], [place] tel:[phone] [facility] HTN (chief complaint)D M (chief complaint)a nxiety1 (chief complaint) Type 2 diabetes mellitus without complicationsAnxio lytic dependenceEssentia l (primary) hypertensionEncoun ter for oth screening for malignant neoplasm of breast 6 Jordy Hidalgo. [address], [place], [address] , [place]. [phone] Referring Provider: Wilfred Lopez [facility], [place], [place], [address]. tel:[phone] OFFICE/OUTPA TIENT VISIT, [facility], [address], [place], [address], [place] tel:[phone] [facility] HTN1 (chief complaint)D M1 (chief complaint)A nxiety1 (chief complaint)S ick1 (chief complaint) Type 2 diabetes mellitus without complicationsEssen tial (primary) hypertensionAcute upper respiratory infection, unspecifiedAnxioly tic dependence 5 Jordy Hidalgo. [address], [place], [place], [address] , [place]. [phone] Referring Provider: Wilfred Lopez [facility], [place], [place], [address]. tel:[phone] OFFICE/OUTPA TIENT VISIT, [facility], [address], [place], [place], [address], [place] tel:[phone] [facility] HTN1 (chief complaint)D M1 (chief complaint)a nxiety1 (chief complaint)n oncompliant (chief complaint)c hest pain1 (chief complaint) Essential (primary) hypertensionType 2 diabetes mellitus without complications 5 Jordy Soto [address], [place], [address] , [place]. tel:[phone] Referring Provider: Wil[address], [place], [address]. tel:[phone] OFFICE/OUTPA TIENT VISIT, [facility], [address], [place], [place], [address], tel:[phone] [facility] DM1 (chief complaint)A nxiety1 (chief complaint)H TN1 (chief complaint)s leep apnea1 (chief complaint) Dietary surveillance and counselingType 2 diabetes mellitus w/o complicationEssent ial (primary) hypertensionOther sleep apnea 5 Jordy Hidalgo. [address], [place], [address] , [place]. tel:[phone] Referring Provider: [address], [place], [place], [address]. tel:[phone] OFFICE/OUTPA TIENT VISIT, [facility], [address] [place], [address], [place] tel:[phone] [facility] DM (chief complaint)H TN (chief complaint)a nxiety (chief complaint) Dietary surveillance and counselingBrittle diabetesUnspecifie d essential hypertensionCurren t use of insulin 5 Jordy Soto [address], [place], [address] , [place]. tel:[phone] Referring Provider: [address], [place], [place], [address]. tel:[phone] OFFICE/OUTPA TIENT VISIT, [facility], [address] [place], [address], [place] tel:[phone] [facility] HTN (chief complaint)D M (chief complaint)s leep apnea (chief complaint) Dietary surveillance and counselingUnspecif ied essential hypertensionUnspec ified sleep apneaBrittle diabetesBMI 50.0 to 59.9 5 Jordy Soto [address], [place], [address] , [place]. tel:[phone] Referring Provider: Rocky Spence, [address], [place], [place], [address]. tel:[phone] OFFICE/OUTPA TIENT VISIT, [facility], [address], [place], [address], [place] tel:[phone] [facility] fatty liver (chief complaint)D M (chief complaint)H TN (chief complaint) Dietary surveillance and counselingUnspecif ied essential hypertensionOther specified disorders of liverBrittle diabetes 5 Jordy Hidalgo. [address], [place], [address] , [place]. tel:[phone] Referring Provider: Rocky Spence, [address], [place], [place], [address]. tel:[phone] [facility], [address], [place], [address], [place] tel:[phone] [facility] No Information 5 Jordy Hidalgo. [address], [place], [address] , [place]. tel:[phone] OFFICE/OUTPA TIENT VISIT, [facility], [address], [place], [address], [place] tel:[phone] [facility] Anxiety (chief complaint)D M (chief complaint) Dietary surveillance and counselingBrittle diabetesBlood pressure elevated 5 Jordy Hidalgo. [address], [place], [place], [address] , [place]. tel:[phone] Referring Provider: Rocky Spence, [address], [place], [place], [address]. tel:[phone] OFFICE/OUTPA TIENT VISIT, [facility], [address], [place], [address], [place] tel:[phone] [facility] sleep apnea (chief complaint)A nxeity (chief complaint)D M (chief complaint) Dietary surveillance and counselingUnspecif ied sleep apneaBrittle diabetesUnspecifie d disorder of liver 5 Jordy Hidalgo. [address], [place], [place], [address] , [place]. tel:[phone] Referring Provider: Wil[address], [place], [place], [address]. [phone] OFFICE/OUTPA TIENT VISIT, [facility], [address], [place], [place], [address], [place] tel:[phone] [facility] DM (chief complaint)s leep apnea (chief complaint)a nxiety (chief complaint) Dietary surveillance and counselingDiabetes Mellitus Type 2, UncomplicatedSleep ApneaUnspecified disorder of liver 5 Jordy Hidalgo. [address], [place], [place], [address] , [place]. [phone] Referring Provider: Wilfred [address], [place], [place], [address]. tel:[phone] OFFICE/OUTPA TIENT VISIT, [facility], [address], [place], [address], [place] tel:[phone] [facility] DM (chief complaint)H TN (chief complaint)s leep apnea (chief complaint)L FT (chief complaint) Dietary surveillance and counselingDiabetes Mellitus Type 2, UncomplicatedHyper tension, UnspecifiedUnspeci fied disorder of liverSleep Apnea 5 Jordy Hidalgo. [address], [place], [place], [address] , [place]. [phone] Referring Provider: Wilfred [address], [place], [place], [address]. tel:[phone] OFFICE/OUTPA TIENT VISIT, [facility], [address], [place], [place], [address], [place] tel:[phone] [facility] anxiety (chief complaint)D M (chief complaint) Dietary surveillance and counselingDiabetes Mellitus Type 2, UncomplicatedSleep ApneaSedative, hypnotic or anxiolytic dependence, unspecified Fe 5 Jordy Hidalgo. [address], [place], [place], [address] , [place]. [phone] Referring Provider: Rocky Spence, [address], [place], [place], [address]. tel:[phone] OFFICE/OUTPA TIENT VISIT, [facility], [address], [place], [address], [place] [phone] [facility] DM (chief complaint)a nxiety (chief complaint)H TN (chief complaint)s leep apnea (chief complaint) Dietary surveillance and counselingDiabetes Mellitus, Adult Onset, UncontrolledHypert ension, UnspecifiedSleep Apnea 5 Jordy Hidalgo. [address], [place], [place], [address] , [place]. tel:[phone] Referring Provider: Wilfred [address], [place], [place], [address]. tel:[phone] OFFICE/OUTPA TIENT VISIT, [facility], [address], [place], [place], [address], [place] tel:[phone] [facility] DM (chief complaint)s leep apnea (chief complaint)a nxiety (chief complaint) Dietary surveillance and counselingDiabetes Mellitus Type 2, UncomplicatedSleep ApneaCentral hearing lossHypertension, Unspecified 4 Jordy Hidalgo. [address], [place], [place], [address] , [place]. tel:[phone] Referring Provider: Wilfred [address], [place], [place], [address]. tel:[phone] OFFICE/OUTPA TIENT VISIT, [facility], [address], [place], [place], [address], [place] tel:[phone] [facility] DM (chief complaint)l ow iron (chief complaint)a nxiety (chief complaint) AnemiaHypertension , UnspecifiedDiabete s Mellitus, Adult Onset, UncontrolledDietar y surveillance and counseling 4 Jordy Hidalgo. [address], [place], [place], [address] , . tel:[phone] Referring Provider: Rocky Spence, [address], [place], [place], [address]. tel:[phone] OFFICE/OUTPA TIENT VISIT, [facility], [address], [place], [place], [address], [place] tel:[phone] [facility] finger infection (chief complaint)a nxiety (chief complaint)D M (chief complaint) Dietary surveillance and counselingDiabetes Mellitus, Adult Onset, UncontrolledOnychi a and paronychia of fingerSleep ApneaHypertension, Unspecified 4 Jordy Hidalgo. [address], [place], [place], [address] , . tel:[phone] Referring Provider: Wilfred [address], [place], [place], [address]. tel:[phone] OFFICE/OUTPA TIENT VISIT, [facility], [address] [place], [address], [place] tel:[phone] [facility] headache (chief complaint)a nxiety (chief complaint)s leep apnea (chief complaint)t innitus (chief complaint) Dietary surveillance and counselingHeadache Sleep ApneaCentral hearing loss 4 Jordy Hidalgo. [address], [place], [place], [address] , [place]. tel:[phone] Referring Provider: Wilfred [address], [place], [place], [address]. tel:[phone] OFFICE/OUTPA TIENT VISIT, [facility], [address], [place], [address], [place] tel:[phone] [facility] DM (chief complaint)a nxiety (chief complaint)h and numbness (chief complaint) Dietary surveillance and counselingDiabetes Mellitus Type 2, UncomplicatedDistu rbance of skin sensationCervicalg ia 4 Jordy Hidalgo. [address], [place], [place], [address] , [place]. tel:[phone] Referring Provider: Wilfred [address], [place], [place], [address]. tel:[phone] OFFICE/OUTPA TIENT VISIT, [facility], [address], [place], [place], [address], [place] tel:[phone] [facility] DM (chief complaint)H TN (chief complaint)a nxiety (chief complaint)d izziness (chief complaint)s leep apnea (chief complaint) Diabetes Mellitus Type 2, UncomplicatedVerti goHypertension, UnspecifiedSleep Apnea 4 Jordy Hidalgo. [address], [place], [place], [address] , . tel:[phone] Referring Provider: Wilfred [address], [place], [place], [address]. tel:[phone] OFFICE/OUTPA TIENT VISIT, [facility], [address] [place], [address], [place] tel:[phone] [facility] DM (chief complaint)a nxiety (chief complaint)H TN (chief complaint) Dietary surveillance and counselingDiabetes Mellitus, Adult Onset, UncontrolledHypert ension, Unspecified 4 Jordy Hidalgo. [address], [place], [address] , [place]. tel:[phone] Referring Provider: Wilfred [address], [place], [place], [address]. tel:[phone] OFFICE/OUTPA TIENT VISIT, [facility], [address], [place], [place], [address], [place] tel:[phone] [facility] Tinnitus (chief complaint)a nxiety (chief complaint)D M (chief complaint) Tinnitus, unspecifiedVertigo Diabetes Mellitus Type 2, UncomplicatedDieta ry surveillance and counseling 4 Jordy Hidalgo. [address], [place], [place], [address] , . tel:[phone] Referring Provider: Wil[address], [place], [place], [address]. tel:[phone] OFFICE/OUTPA TIENT VISIT, [facility], [address], [place], [place], [address], tel:[phone] [facility] DM (chief complaint)H TN (chief complaint)a nxiety (chief complaint) Dietary surveillance and counselingDiabetes Mellitus Type 2, UncomplicatedHyper tension, Unspecified 4 Jordy Hidalgo. [address], [place], [place], [address] , [place]. tel:[phone] Referring Provider: [facility] [place], [address]. tel:[phone] OFFICE/OUTPA TIENT VISIT, [facility], [address], [place], [place], [address], [place] tel:[phone] [facility] shingle (chief complaint)A nxiety (chief complaint)S inus (chief complaint)D M (chief complaint) Dietary surveillance and counselingHerpes zoster without mention of complicationSinusi tis, AcuteTinnitus, unspecifiedDiabete s Mellitus, Adult Onset, Uncontrolled 4 Jordy Hidalgo. [address], [place], [place], [address] , [place]. tel:[phone] Referring Provider: Wil[address], [place], [place], [address]. tel:[phone] OFFICE/OUTPA TIENT VISIT, [facility], [address], [place], [place], [address], [place] tel:[phone] [facility] anxiety (chief complaint)e ar pain (chief complaint)b ack pain (chief complaint) Dietary surveillance and counselingDietary surveillance and counselingTinnitus , unspecifiedLumbago Otalgia, unspecified 4 Jordy Hidalgo. [address], [place], [place], [address] , [place]. tel:[phone] Referring Provider: Wil[address], [place], [place], [address]. tel:[phone] OFFICE/OUTPA TIENT VISIT, [facility], [address], [place], [place], [address], [place] tel:[phone] [facility] HTN (chief complaint)D M (chief complaint)a nxiety (chief complaint) Dietary surveillance and counselingHyperten sarah, UnspecifiedDiabete s Mellitus, Adult Onset, Uncontrolled 4 Jordy Hidalgo. [address], [place], [place], [address] , [place]. [phone] Referring Provider: Wil[address], [place], [place], [address]. tel:[phone] OFFICE/OUTPA TIENT VISIT, [facility], [address], [place], [place], [address], [place] tel:[phone] [facility] DM (chief complaint)a nxiety (chief complaint) Dietary surveillance and counselingHyperten sarah, UnspecifiedDiabete s Mellitus, Adult Onset, Uncontrolled 4 Jordy Hidalgo. [address], [place], [place], [address] , [place]. tel:[phone] Referring Provider: Wilfred [address], [place], [place], [address]. tel:[phone] OFFICE/OUTPA TIENT VISIT, [facility], [address], [place], [address], [place] tel:[phone] [facility] anxiety (chief complaint)U RI (chief complaint)D M (chief complaint) Dietary surveillance and counselingDiabetes Mellitus, Adult Onset, UncontrolledAcute upper respiratory infections of other multiple sites 3 Jordy Hidalgo. [address], [place], [place], [address] , [place]. tel:[phone] Referring Provider: Rocky Spence [address], [place], [place], [address]. tel:[phone] OFFICE/OUTPA TIENT VISIT, [facility], [address], [place], [place], [address], [place] tel:[phone] [facility] HTN (chief complaint)D M (chief complaint)a nxiety (chief complaint) Dietary surveillance and counselingHyperten sarah, UnspecifiedDiabete s Mellitus, Adult Onset, Uncontrolled 3 Jordy Hidalgo. [address], [place], [place], [address] , [place]. tel:[phone] OFFICE/OUTPA TIENT VISIT, [facility], [address], [place], [place], [address], [place] tel:[phone] [facility] HTN (chief complaint)a nxiety (chief complaint)f atigue (chief complaint) Dietary surveillance and counselingLumbagoH ypertension, UnspecifiedSleep Apnea 3 Jordy Hidalgo. [address], [place], [place], [address] , [place]. tel:[phone] Referring Provider: Wilfred [address], [place], [place], [address]. tel:[phone] OFFICE/OUTPA TIENT VISIT, [facility], [address], [place], [address], [place] tel:[phone] [facility] HTN (chief complaint)D M (chief complaint)a nxiety (chief complaint) Dietary surveillance and counselingLumbagoH ypertension, UnspecifiedDiabete s Mellitus Type 2, Uncomplicated 3 Jordy Hidalgo. [address], [place], [place], [address] , [place]. tel:[phone] Referring Provider: Wilfred [address], [place], [place], [address]. tel:[phone] OFFICE/OUTPA TIENT VISIT, [facility], [address], [place], [address], [place] tel:[phone] [facility] anemia (chief complaint)D M (chief complaint)a nxiety (chief complaint) AnemiaHypertension , UnspecifiedDiabete s Mellitus Type 2, UncomplicatedDieta ry surveillance and counseling 3 Jordy Hidalgo. [address], [place], [place], [address] , [place]. [phone] Referring Provider: Rocky Spence, [address], [place], [place], [address]. tel:[phone] OFFICE/OUTPA TIENT VISIT, [facility], [address], [place], [place], [address], [place] tel:[phone] [facility] anemia (chief complaint)D M (chief complaint)H TN (chief complaint) AnemiaDietary surveillance and counselingDiabetes Mellitus, Adult Onset, UncontrolledHypert ension, Unspecified 3 Jordy Hidalgo. [address], [place], [place], [address] , [place]. tel:[phone] Referring Provider: Rocky Spence [address], [place], [place], [address]. tel:[phone] OFFICE/OUTPA TIENT VISIT, [facility], [address], [place], [place], [address], [place] tel:[phone] [facility] anxiety (chief complaint)D M (chief complaint)b ronchitis (chief complaint) Dietary surveillance and counselingDiabetes Mellitus, Adult Onset, UncontrolledHypert ension, UnspecifiedBronchi tis, Acute 3 Jordy Soto [address], [place], [place], [address] , [place]. [phone] Referring Provider: Rocky Spence [address], [place], [place], [address]. tel:[phone] OFFICE/OUTPA TIENT VISIT, [facility], [address], [place], [place], [address], [place] tel:[phone] [facility] HTN (chief complaint)a nxiety (chief complaint)s ick (chief complaint) Acute upper respiratory infections of other multiple sitesHypertension, UnspecifiedDiabete s Mellitus, Adult Onset, Uncontrolled 3 Jordy Hidalgo. [address], [place], [address] , [place]. [phone] Referring Provider: Rocky Spence, [address], [place], [place], [address]. tel:[phone] OFFICE/OUTPA TIENT VISIT, [facility], [address], [place], [place], [address], [place] tel:[phone] [facility] HTN (chief complaint)D M (chief complaint)a nxiety (chief complaint) Dietary surveillance and counselingHyperten sarah, UnspecifiedDiabete s Mellitus, Adult Onset, Uncontrolled Jun- 3 Jordy Hidalgo. [address], [place], [place], [address] , [place]. [phone] Referring Provider: Wilfred [address], [place], [place], [address]. tel:[phone] OFFICE/OUTPA TIENT VISIT, [facility], [address], [place], [place], [address], [place] tel:[phone] [facility] HTN (chief complaint)V ision chanage (chief complaint)A nemia (chief complaint) Dietary surveillance and counselingAnemiaDi abetes Mellitus, Adult Onset, UncontrolledHypert ension, UnspecifiedCarotid Artery Disease, Unilateral 3 Jordy Hidalgo. [address], [place], [place], [address] , [place]. [phone] Referring Provider: Wilfred [address], [place], [place], [address]. tel:[phone] OFFICE/OUTPA TIENT VISIT, [facility], [address], [place], [place], [address], [place] tel:[phone] [facility] cough (chief complaint)H TN (chief complaint) Dietary surveillance and counselingAcute upper respiratory infections of other multiple sitesHypertension, UnspecifiedDiabete s Mellitus, Adult Onset, Uncontrolled 3 Jordy Hidalgo. [address], [place], [address] , [place]. [phone] Referring Provider: Wilfred [address], [place], [place], [address]. tel:[phone] OFFICE/OUTPA TIENT VISIT, [facility], [address], [place], [place], [address], [place] tel:[phone] [facility] anxiety (chief complaint)H TN (chief complaint)D M (chief complaint) Dietary surveillance and counselingHyperten sarah, UnspecifiedDiabete s Mellitus, Adult Onset, UncontrolledLumbag o 3 Jordy Hidalgo. [address], [place], [address] , [place]. [phone] Referring Provider: [address], [place], [place], [address]. tel:[phone] OFFICE/OUTPA TIENT VISIT, [facility], [address], [place], [place], [address], [place] tel:[phone] [facility] DM/HTN (chief complaint)a nxiety (chief complaint)a nemia (chief complaint) Dietary surveillance and counselingDiabetes Mellitus Type 2, UncomplicatedAnemi aLumbagoHypertensi on, Unspecified 2 Jordy Hidalgo. [address], [place], [place], [address] , [place]. tel:[phone] Referring Provider: Wilfred [address], [place], [place], [address]. tel:[phone] OFFICE/OUTPA TIENT VISIT, [facility], [address], [place], [place], [address], tel:[phone] [facility] back pain (chief complaint)a nxiety (chief complaint)D M (chief complaint) Dietary surveillance and counselingLumbagoD iabetes Mellitus Type 2, UncomplicatedHyper tension, Unspecified 2 Jordy Hidalgo. [address], [facility] [address], [place], [place], [address] , . tel:[phone] Referring Provider: Wilfred Lopez [facility] [address], [place], [place], [address]. tel:[phone] OFFICE/OUTPA TIENT VISIT, [facility], [address], [place], [place], [address], tel:[phone] [facility] anxiety (chief complaint)b ack pain (chief complaint)H TN (chief complaint)a nemia (chief complaint) Dietary surveillance and counselingLumbagoA nemiaHypertension, Unspecified 2 Jordy Hidalgo. [address], [place], [place], [address] , [place]. tel:[phone] Referring Provider: Wilfred Lopez [facility], [place], [place], [address]. tel:[phone] Family History Family Member Type Diagnosis Age [...] ordered Referral Referred To: Tosha Kilpatrick [address] [facility] [address] [place], [phone] Ordered: Referrals: Tosha Kilpatrick. 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
--- OUTSIDE RECORDS SUMMARY | 2024-07-29 03:50 | XMS_ITS | Clinical Summary ---
Author Organization [facility] Address [address] Attn: Epic Prelude ADT BARRY LURISA [address] Care Team Providers Care Waste Water Worker Name Role Phone Unavailable Primary Care Provider Unavailabl e Medications amLODIPine (NORVASC) 10 mg tablet Take 1 Tablet (10 mg) by mouth daily. 90 Tablet 12/20/19 24 12:45 PM CDT 024 Active insulin glargine-yfgn 100 unit/mL vial Inject 60 units at bedtime 30 mL 2 01/29/20 24 2:26 PM FACETOR 024 Active tirzepatide (Mounjaro) 2.5 mg/0.5 mL Pen Injector Inject 1 pen injector subcutaneously once a week. 2 mL 3 02/18/20 24 1:58 PM FACETOR 024 Active ezetimibe (Zetia) 10 mg tablet Take 1 Tablet (10 mg) by mouth daily. 90 Tablet 5 02/18/20 24 1:58 PM FACETOR 024 Active torsemide (DEMADEX) 10 mg Tablet Take 1 tablet by mouth daily 90 Tablet 04/15/19 25 6:48 PM FACETOR 024 Active torsemide (DEMADEX) 20 mg tablet TAKE ONE TABLET DAILY ALONG WITH A 10 MG TO EQUAL 30 MG DAILY 30 Tablet 5 07/27/19 25 4:14 PM CDT 025 Active insulin lispro (HumaLOG,ADMEL OG) 100 unit/mL pen syringe INJECT 14 UNITS WITH MEALS 15 mL 2 04/12/19 25 3:26 PM FACETOR 025 Active Insulin Syringe-Needle U-100 (BD Insulin Syringe Ultra-Fine) 1 mL 31 gauge x 5/16 Syringe USE FOR INSULIN INJECTIONS 200 Each 04/12/19 25 3:26 PM FACETOR 025 Active ferrous sulfate 325 mg (65 mg iron) tablet Take 1 Tablet (325 mg) by mouth daily. 100 Tablet 04/12/19 3:26 PM FACETOR 025 Active patiromer calcium sorbitex (Veltassa) 25.2 gram Powder in Packet powder Drink 1 packet dissolved in water once a day. Mix with 1/3 cup of water and drink daily. 30 Packet 025 Active patiromer calcium sorbitex (Veltassa) 16.8 gram Powder in Packet powder Drink 1 packet dissolved in water once a day. Mix with 1/3 cup of water and drink daily 30 Packet 04/12/19 25 3:26 PM FACETOR 025 Active cefdinir (OMNICEF) 300 mg capsule Take 1 Capsule (300 mg) by mouth daily at 1400 3 Capsule 05/19/19 6:32 PM CDT 025 Active amLODIPine (NORVASC) 10 mg tablet Take 1 Tablet (10 mg) by mouth daily. 90 Tablet 1 06/02/19 6:03 PM CDT 025 Active Blood-Glucose Sensor (Dexcom G6 Sensor) Device CHANGE DIRECTED. 3 Each 06/02/19 6:03 PM CDT 025 Active Blood-Glucose Transmitter (Dexcom G6 Transmitter) Device CHANGE DIRECTED. 1 Each 06/02/19 6:03 PM CDT 025 Active insulin lispro (HumaLOG,ADMEL OG) 100 unit/mL pen syringe INJECT 14 UNITS WITH MEALS 15 mL 2 06/02/19 6:03 PM CDT 025 Active Insulin [place], Disposable, (BD Ultra-Fine Short Pen Needle) 31 gauge x 5/16 Needle USE WITH INSULIN PEN 100 Each 06/02/19 25 6:03 PM CDT 025 Active ergocalciferol (Vitamin D2) 50,000 unit capsule Take 1 Capsule (50,000 Units) by mouth every 7 days. 13 Capsule 06/14/19 25 1:17 PM CDT 025 Active torsemide (DEMADEX) 10 mg Tablet Take 1 Tablet (10 mg) by mouth 1 time daily as needed. 90 Tablet 06/14/19 25 1:17 PM CDT 025 Active carvediloL (COREG) 25 mg tablet Take 1 Tablet (25 mg) by mouth 2 times daily. 180 Tablet 06/29/19 25 6:49 PM CDT 025 Active insulin glargine (Lantus Solostar U-100 Insulin) 100 unit/mL pen syringe Inject 60 units under the skin once daily 15 mL 07/01/19 25 2:32 PM CDT 025 Active empagliflozin (JARDIANCE) 25 mg tablet Take 1 Tablet (25 mg) by mouth daily in the morning. 90 Tablet 07/27/19 25 4:14 PM CDT 025 Active empagliflozin (Jardiance) 25 mg tablet Take 1 Tablet (25 mg) by mouth daily in the morning. 90 Tablet 1 Active diazePAM (VALIUM) 10 mg tablet Take 1 Tablet (10 mg) by mouth 3 times daily as needed for anxiety. 84 Tablet 07/27/19 4:14 PM CDT 025 2024 Active insulin glargine-yfgn 100 unit/mL vial Inject 60 units at bedtime 30 mL 2 025 2024 Discontinued empagliflozin (JARDIANCE) 25 mg tablet Take 1 Tablet (25 mg) by mouth daily in the morning. 90 Tablet 04/12/19 3:26 PM FACETOR 025 2024 Discontinued diazePAM (VALIUM) 10 mg tablet Take 1 Tablet (10 mg) by mouth 3 times daily as needed for anxiety. 84 Tablet 06/29/19 25 6:49 PM CDT 025 2024 Discontinued(R dakota) fluconazole (DIFLUCAN) 150 mg tablet Take 0.5 Tablets (75 mg) by mouth one time only for 1 dose. 1 Tablet 07/14/19 25 6:51 PM CDT 025 2024 Encounters Date Type Department Care Team Description 06/22/2024 External Device Data [facility] ABSTRACTION Provider, Abstract 05/26/2024 External Device Data [facility] ABSTRACTION Provider, [...]
--- OUTSIDE RECORDS SUMMARY | 2024-07-29 03:50 | XMS_ITS | Clinical Summary ---
Author Organization [facility] [employer] [facility] [employer] [facility] Address [address] [address] Phone Care Team Providers Care Real Estate Services Coordinator Name Role Phone Matias Warren MD Primary Care Provider [phone] Allergies Active Allergy Reactions Criticality Noted Date [...] time each day Active ergocalciferol 1.25 MG (99414 UT) capsule Take 50,000 Units by mouth [...] Last Done Comments Breast Cancer Screening 1974 Hepatitis B Vaccine (1 of 3 - 19+ 3-dose series) 1993 Pneumococcal Vaccine: 50+ Ye ars (1 of 2 - PCV) 1993 Colorectal Cancer Screening: Annual FOBT 2023 [...] 8.6(A) 8.7 - 10.7 mg/dL eGFR Non-Afr Hungarian 25(L) Hemoglobin A1C 8.5(A) 4.0 - 6.0 Glucose, UA 4+ mg/dL Bilirubin, UA Negative Ketones, UA Negative Urine Specific Lula 1.015 Blood, UA 3+ Randy/ul pH, UA [...] Most Recently Relevant to Health Maintenance Insurance Medicare [facility] Care Teams Real Estate Services Coordinator Relationship Specialty Start Date End Date Matias Warren MD [address] [place] [address] PCP - General Internal Medicine 07/24/23
--- OUTSIDE RECORDS SUMMARY | 2024-07-29 03:50 | XMS_ITS | Referral Summary ---
Author Organization [facility] Address [address] [place] [address] Care Team Providers Care Parking Supervisor Name Role Phone Matias Warren MD Primary Care Provider [phone] Allergies Active Allergy Reactions Criticality Noted Date [...] drink = 0.6 oz pur e alcohol) [place] Utilities Answer Date Recorded In the past 12 months has [employer], [employer], or water [employer] threatened to shut off services in your [...] often do you attend chur ch or anabaptism services? Never 07/23/2023 Do you belong to any clubs o r organizations such as zoroastrianism groups, unions, fraternal or athletic groups, or [...] place to sleep or slept in a correction (including now)? 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 Gender Identity Not on file Sexual Orientation [...] Plan of Treatment Not on file Insurance [employer] MEDICARE [facility] HMO/PPO Address: [facility] [address] [place] [address] MEDICARE [facility] [place] MEDICARE [facility] Address: [address] [address] [place] [address] Advance Directives For more information, please contact: [phone] * Full Code (Latest Code Status on File) Date Activated Date Inactivated Comments 07/23/2023 3:39 PM 07/25/2023 6:34 PM Care Teams Parking Supervisor Relationship Specialty Start Date End Date Matias Warren MD [address] [place] [phone] PCP - General Internal Medicine 07/20/23
--- OUTSIDE RECORDS SUMMARY | 2024-07-29 03:50 | XMS_ITS | Clinical Summary ---
Author Organization [facility] Address [address] [place] [address] Phone Care Team Providers Care Managed Services Consultant Name Role Phone Matias Warren MD Primary Care Provider [phone] Allergies Active Allergy Reactions Criticality Noted Date [...] Diabetes: Nephropathy Screening 10/16/2019 10/15/2018, 02/08/2017, 01/17/2017 SARS-COV-2 Immunization ( season) 2023 06/09/2020, 05/12/2020 Cologuard 2024 Immunochemical Fecal Occult Blood 2024 Zoster Immunization (1 of 2) 2024 Influenza Immunization (Season Ended) 2024 01/05/2021, 12/03/2019, 02/06/2018, Additional history exists Respiratory Syncytial Virus (RSV) Immunization (Adult) (1 [...] Recently Relevant to Health Maintenance Insurance MEDICARE [facility] Care Teams Managed Services Consultant Relationship Specialty Start Date End Date Matias Warren MD [address] [place] [address] PCP - General Family Medicine 07/09/23
[2024-07-29 03:57] LABS: Influenza A QL RT-PCR Negative (Negative); Influenza B QL RT-PCR Negative (Negative); RSV RNA, RT-PCR Negative (Negative); SARS-CoV-2 RNA PCR Negative (Negative)
== END 2024-07-29 06:12 | disposition home or self-care (01) ==
PROVIDERS: Emergency Provider Emergency Medicine
DX: I12.9 Hypertensive chronic kidney disease with stage 1 through stage 4 chronic kidney disease, or unspecified chronic kidney disease (principal); R06.00 Dyspnea, unspecified; Z20.822 Contact with and (suspected) exposure to COVID-19; E11.22 Type 2 diabetes mellitus with diabetic chronic kidney disease; N18.4 Chronic kidney disease, stage 4 (severe); D64.9 Anemia, unspecified; E66.01 Morbid (severe) obesity due to excess calories; Z68.43 Body mass index [BMI] 50.0-59.9, adult; G47.33 Obstructive sleep apnea (adult) (pediatric); Z87.01 Personal history of pneumonia (recurrent); Z79.4 Long term (current) use of insulin; Z79.84 Long term (current) use of oral hypoglycemic drugs; Z79.899 Other long term (current) drug therapy
CPT/HCPCS: 36415; 71045; 80053; 83880; 85025; 87637; 99284; J0360

== ENCOUNTER 2024-07-30 01:18 | Day surgery (SDC) | payer OTHER, SELFPAY ==
[2024-07-26 13:27] VITALS: BMI 53.3
--- NOTE | 2024-07-26 13:35 | PC.NURSE ---
Report to the Outpatient Waiting Room, entrance under the green pavilion located off [facility], at time _1230_ on date _[id number]_. Planned Procedure Time: _230pm_.? Time changes happen often and if your time is changed the preop area will call you the afternoon before. - You and your visitor will be asked to self-screen and do not enter if you have any COVID symptoms. Please call surgeon if you need to reschedule. - A mask is optional within the hospital at this time. Patients may have clear liquids (water, carbonated beverages, clear teas, apple juice) until 3 hours prior to surgery with a maximum of 20 ounces. - No food from midnight until time of surgery and no smoking, or chewing tobacco (or any form of nicotine). No chewing gum, candy or mints. Take only the following medications with a SIP of water on the morning of surgery: ___Carvidilol and 1/2 dose Lantus insulin No short acting insulin day of surgery or bedtime before. DO NOT STOP ANY OF YOUR OTHER PRESCRIPTION MEDICATIONS PRIOR TO SURGERY EXCEPT THE FOLLOWING Hold all vitamins and supplements for 3 days per anesthesiologist. Medications to discontinue per physician Date to take last [id number] Please no make-up, nail lithuanian, hairspray, perfume, deodorant, or body powder the day of surgery.? No jewelry (including any body piercings) or valuables the day of surgery, leave them at home.? Please take a shower or bath the night before, or the morning of, surgery with an antibacterial soap.? Wear comfortable, loose fitting clothing.? - Jewelry must be removed prior to entering the operating room.? Rings and piercings that are not removed may be cut off. - The hospital will not accept responsibility for valuables.? - Please leave all valuables, including medications, at home the day of surgery. If you are going home after surgery, a licensed train driver must drive you home.? - NO public transportation without another adult if you receive anesthesia. - We recommend that an adult stay with you for 24 hours following discharge. - We also recommend that you do not drive, make important decision, drink alcoholic beverages, or take any drugs that were not prescribed by your health care provider for at least 24 hours after your discharge time. Follow any additional instructions given to you from your surgeon. Telephone instructions given to __Dawn___and asked if any additional questions and then verbalized understanding. Patient advised to call surgeon office or pre surgery nurse liaison [phone] if any additional questions.
--- NOTE | 2024-07-28 12:12 | P.HP_ITS ---
H&P: HPI History of Present Illness Date/Time: 07/28/24 12:12 Chief Complaint: Postmenopausal bleeding Narrative: This is a 49-year-old female 3 para 3 admitted for hysteroscopy dilatation curettage secondary to thickened endometrium heavy periods last hemoglobin was 8.6 she has been taking it for the aunt her review of systems are otherwise negative she will undergo hysteroscopy with dilatation curettage and possible polypectomy as well as Susanne ablation. Risks and benefits reviewed including but not exclusive of aspiration pneumonia bleeding, transfusion, perforation of bowel, bladder ureters, or other internal organs with need for open laparotomy she received the ACOG handout entitled hysterectomy husk P dilatation curettage respectively as well as the Susanne handout. She understands this is not a form of control. She had all questions answered and asked to proceed Review of Systems Review of Systems: All systems reviewed & are unremarkable except as noted in HPI and below PMFSH Past Medical History Medical History Pneumonia Heavy periods Acute on chronic anemia Rectal bleeding Morbid obesity Obstructive sleep apnea on CPAP Insulin dependent type 2 diabetes mellitus Chronic anemia Chronic kidney disease, stage 4 (severe) Hypertension Vestibular migraine Surgical History Surgical History History of section Family History Family History Father Diabetes mellitus Mother Hypertension COPD (chronic obstructive pulmonary disease) Social History Social History Social History: Surrogate medical decision maker: Marco A Tavares, spouse. Code status: Full code. Smoking status: Never smoker Tobacco type: cigarettes Alcohol intake: never Substance use: never Substance use type: does not use Do You Feel Safe in your Home?: Yes Lack of Transportation: No Lack of Food: Never True Current Housing: I Have Housing Concerned About Future Housing: No Difficulty Paying Gas/Electric Bills: No Difficulty Paying for Meds: No Currently Unemployed: No Education: Associate Degree Difficulty w/ Childcare or Family Care: No Living arrangements: with family Additional living arrangements comments: Lives with spouse in [place]. They have 3 grown children. 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 Gender identity (if verbalized by the patient): Female Spiritual care concerns: No Meds Home Medications and Allergies Home Medications ?Medication ?Instructions ?Recorded ?Confirmed ?Type amlodipine 10 mg tablet 10 mg PO HS 05/13/24 07/26/24 History ascorbic acid (vitamin C) 500 mg 500 mg PO DAILY 05/13/24 07/26/24 History chewable tablet (Fruit C-500) carvedilol 25 mg tablet 25 mg PO Q12H 05/13/24 07/26/24 History empagliflozin 25 mg tablet 25 mg PO DAILY 05/13/24 07/26/24 History (Jardiance) ergocalciferol (vitamin D2) 1,250 1,250 mcg PO WEEKLY 05/13/24 07/26/24 History mcg (50,000 unit) capsule (Vitamin D2) ferrous sulfate 325 mg (65 mg 325 mg PO DAILY 05/13/24 07/26/24 History iron) tablet folic acid 1 mg tablet 1 mg PO DAILY 05/13/24 07/26/24 History insulin lispro 100 unit/mL 15 unit subcut AC 05/13/24 07/26/24 History subcutaneous pen insulin glargine 100 unit/mL (3 35 unit subcut BID 07/26/24 07/26/24 History mL) subcutaneous pen (Lantus Solostar U-100 Insulin) insulin syringe-needle U-100 1 mL 07/26/24 07/26/24 History 31 gauge x 5/16 torsemide 40 mg tablet (Soaanz) 40 mg PO DAILY 07/26/24 07/26/24 History Allergies Allergy/AdvReac Type Severity Reaction Status Date / Time cephalexin Allergy Mild RASH Verified 07/26/24 13:22 ofloxacin Allergy Mild RASH Verified 07/26/24 13:22 ciprofloxacin Allergy Unknown Hives,Rash Verified 07/26/24 13:22 meperidine Allergy Unknown Hives Verified 07/26/24 13:22 morphine Allergy Unknown Hives Verified 07/26/24 13:22 albuterol AdvReac Migraine Verified 07/26/24 13:22 Exam Const: General: cooperative, comfortable and obese Orientation/consciousness: oriented to person, oriented to place and oriented to time Resp: Effort & Inspection: normal respiratory effort Cardio: Rate: regular rate Rhythm: regular rhythm Heart sounds: S1 normal heart sound present and S2 normal heart sound present GI: Inspection: normal to inspection : External Female Exam: normal external appearance Speculum Exam - Vagina: normal appearance of the vagina Speculum Exam - Cervix: normal appearance of the cervix Bimanual exam- vagina & uterus: enlarged Bimanual Exam- Adnexa, other: normal adnexae (Difficult exam secondary to obesity) Assessment and Plan Assessment and plan (1) Excessive bleeding: Code(s): R58 - Hemorrhage, not elsewhere classified Status: Acute Plan Will proceed with hysteroscopy/dilatation curettage/Susanne ablation
--- OUTSIDE RECORDS SUMMARY | 2024-07-30 01:22 | XMS_ITS | Clinical Summary ---
Author Organization [facility] Address [address] [place] [address] Phone Care Team Providers Care Marketing Pr Intern Name Role Phone Matias Warren MD Primary Care Provider [phone] Allergies Active Allergy Reactions Criticality Noted Date [...] Recently Relevant to Health Maintenance Insurance MEDICARE [facility] Care Teams Marketing Pr Intern Relationship Specialty Start Date End Date Matias Warren MD [address] [place] [address] PCP - General Family Medicine 07/09/23
--- OUTSIDE RECORDS SUMMARY | 2024-07-30 01:22 | XMS_ITS ---
Author Organization [facility] Address [address] [place] [id number] Care Team Providers Care Grout Worker Name Role Phone Kelvin MEMBRENO, Andres Primary Care Provider Rudy Moses Unavailable [phone] ALLERGIES Allergen (clinical drug ingredient) Drug/Non Drug [...] for 30 day(s) Unknown Vitamin D (Ergocalciferol) 28513 UNIT 1 capsule Orally Once a week [...] smoker Encounters Encounter Location Date Provider Diagnosis [address] [id number] 06/23/2023 Rudy Veloz Acute kidney failure , [...] irbesaratan/jardi navin Pt not a candidate for Phunwarerendia now since k level has been high [...] ORAL CAVITY: mucosa moist LAB SUMMARY: ///// [id number] [id number] [id number] [id number] PO4 4.55.4 Albumin 2.833.1 [id number] EGFR [id number] Hgb8.5 8.49.19.8 Hct26.6 26.127.429.4 WBC9.9 119.48 [id number] Vit D 22.2 20.4 Iron 61 67 [...] for last 5-6 months,stopped recently. Pt states pit shoveler started her on Kerrendia aling with Veltassa. Presenting symptoms Patient reported As above.
--- OUTSIDE RECORDS SUMMARY | 2024-07-30 01:22 | XMS_ITS | Clinical Summary ---
Author Organization [facility] Address [address] [place] [address] Care Team Providers Care Exhibit Carpenter Name Role Phone Teresita Cortez MD Primary Care Provider Source Comments [facility],non-christian hospital Affiliates and Associated Physician Practices is amultiple site organization consisting of ambulatory clinics and hospital sitesin [place], [place], [place] and [place]. This disclosure is being madepursuant to the Care Everywhere program and may not contain all information available regarding this patient. Last updated 17.[facility] [employer] Allergies Active Allergy Reactions Criticality Noted Date [...] - OUT OF STATE MEDICARE Care Teams Exhibit Carpenter Relationship Specialty Start Date End Date Teresita Cortez MD [address] [place] [address] [address] [place] [address] PCP - General 05/07/19
--- OUTSIDE RECORDS SUMMARY | 2024-07-30 01:22 | XMS_ITS | Continuity of Care Document ---
Author Organization [facility] Address [address] [place] [address] [place] [address] Phone Care Team Providers Care Training Development Director Name Role Phone Rocky Specne MD Unavailable Unavailable Allergies, Adverse Reactions, Alerts [...] TIENT VISIT, EST [facility], [address] [place], [address], tel:[phone] [facility] Medicine DM (chief complaint)s leep apnea1 (chief complaint)p roteinuria1 (chief complaint)l ow iron (chief complaint)a nxiety1 (chief complaint) Type 2 diabetes mellitus with diabetic nephropathyEssenti al (primary) hypertensionSleep apneaBody mass index (BMI) 50-59.9 , adult 7 Jordy Hidalgo. [address], [place], [place], [address] , [place]. tel:[phone] Referring Provider: Rocky Spence [address], [place], [place], [address]. tel:[phone] [facility], [address] [place], [address], [place] tel:[phone] [facility] No Information 7 Jordy Hidalgo. [address], [place], [place], [address] , [place]. tel:[phone] OFFICE/OUTPA TIENT VISIT, EST [facility], [address] [place], [address], [place] tel:[phone] [facility] DM1 (chief complaint)H TN (chief complaint)a neity1 (chief complaint)o beisty1 (chief complaint) Type 2 diabetes mellitus without complicationsEssen tial (primary) hypertensionBody mass index (BMI) 50-59.9 , adultAnxiolytic dependence Fercho- 7 Jordy Soto [address], [place], [place], [address] , [place]. tel:[phone] [facility], [address], [place], [place], [address], [place] tel:[phone] [facility] No Information 7 Jordy Soto [address], [place], [place], [address] , [place]. tel:[phone] OFFICE/OUTPA TIENT VISIT, [facility], [address], [place], [place], [address], [place] tel:[phone] [facility] HTN (chief complaint)s leep apnea1 (chief complaint)a nxiety1 (chief complaint)D M (chief complaint) Sleep apneaEssential (primary) hypertensionType 2 diabetes mellitus without complicationsAnxio lytic dependence 7 Jordy Soto [address], [place], [place], [address] , [place]. tel:[phone] [facility], [address], [place], [place], [address], [place] tel:[phone] [facility] No Information 7 Jordy Soto [address], [place], [place], [address] , [place]. tel:[phone] OFFICE/OUTPA TIENT VISIT, [facility], [address], [place], [place], [address], [place] tel:[phone] [facility] DM (chief complaint)H TN (chief complaint)a nxiety1 (chief complaint)a nemia1 (chief complaint) Type 2 diabetes mellitus without complicationsAnxio lytic dependenceEssentia l (primary) hypertensionBody mass index (BMI) 50-59.9 , adult Fe- 7 Jordy Soto [address], [place], [place], [address] , [place]. tel:[phone] Referring Provider: Wilfred [address], [place], [place], [address]. tel:[phone] OFFICE/OUTPA TIENT VISIT, EST [facility], [address], [place], [place], [address], [place] tel:[phone] [facility] Medicine HTN (chief complaint)a nxiety1 (chief complaint)D M (chief complaint) Essential (primary) hypertensionType 2 diabetes mellitus without complicationsAnxio lytic dependenceBody mass index (BMI) 50-59.9 , adult Feb- 6 Jordy Hidalgo. [address], [place], [place], [address] , [place]. [phone] Referring Provider: Wilfred Lopez [address], [place], [place], [address]. tel:[phone] PREV VISIT, EST, AGE 40-64 [facility], [address], [place], [place], [address], [place] tel:[phone] [facility] PHysical (chief complaint) Encntr for general adult medical exam w/o abnormal findings 6 Jordy Hidalgo. [address], [place], [place], [address] , [place]. [phone] Referring Provider: Wilfred Lopez [address], [place], [place], [address]. tel:[phone] OFFICE/OUTPA TIENT VISIT, EST [facility], [address], [place], [place], [address], [place] tel:[phone] [facility] DM (chief complaint)H TN (chief complaint)a nxiety1 (chief complaint)i silvino deficiecy (chief complaint) Iron deficiencyEssentia l (primary) hypertensionAnxiol ytic dependenceType 2 diabetes mellitus without complications 0 6 Jordy Hidalgo. [address], [place], [place], [address] , [place]. [phone] [facility], [address], [place], [place], [address], [place] tel:[phone] [facility] No Information 6 Jordy Hidalgo. [address], [place], [place], [address] , [place]. tel:[phone] OFFICE/OUTPA TIENT VISIT, [facility], [address], [place], [place], [address], [place] tel:[phone] [facility] HTN (chief complaint)D M (chief complaint)a nixety1 (chief complaint) Type 2 diabetes mellitus without complicationsEssen tial (primary) hypertensionAnxiol ytic dependence 6 Jordy Hidalgo. [address], [place], [place], [address] , [place]. [phone] Referring Provider: Wilfred [address], [place], [place], [address]. tel:[phone] OFFICE/OUTPA TIENT VISIT, [facility], [address], [place], [place], [address], [place] tel:[phone] [facility] DM (chief complaint)a nxiety1 (chief complaint)H TN (chief complaint) Type 2 diabetes mellitus without complicationsAnxio lytic dependenceEssentia l (primary) hypertension 6 Jordy Hidalgo. [address], [place], [place], [address] , [place]. [phone] Referring Provider: Wilfred [address], [place], [place], [address]. tel:[phone] OFFICE/OUTPA TIENT VISIT, [facility], [address], [place], [place], [address], [place] tel:[phone] [facility] HTN (chief complaint)D M (chief complaint)a nxiety1 (chief complaint) Essential (primary) hypertensionType 2 diabetes mellitus without complicationsAnxio lytic dependence 6 Jordy Hidalgo. [address], [place], [place], [address] , [place]. tel:[phone] Referring Provider: Wilfred [address], [place], [place], [address]. tel:[phone] OFFICE/OUTPA TIENT VISIT, [facility], [address], [place], [place], [address], [place] tel:[phone] [facility] DM (chief complaint)i silvino deficiency (chief complaint)p roteinuria (chief complaint)H TN (chief complaint) Type 2 diabetes mellitus without complicationsProte inuriaIron deficiencyEssentia l (primary) hypertension 6 Jordy Hidalgo. [address], [place], [place], [address] , [place]. tel:[phone] Referring Provider: Wilfred [address], [place], [place], [address]. tel:[phone] OFFICE/OUTPA TIENT VISIT, [facility], [address], [place], [place], [address], [place] tel:[phone] [facility] DM (chief complaint)a nxiety1 (chief complaint)H TN (chief complaint) Type 2 diabetes mellitus without complicationsAnxio lytic dependenceEssentia l (primary) hypertensionTachyc ardia 6 Jordy Hidalgo. [address], [place], [place], [address] , [place]. [phone] Referring Provider: Wilfred [address], [place], [place], [address]. tel:[phone] OFFICE/OUTPA TIENT VISIT, [facility], [address], [place], [place], [address], [place] tel:[phone] [facility] HTN1 (chief complaint)d M (chief complaint)a nxiety1 (chief complaint) Type 2 diabetes mellitus without complicationsEssen tial (primary) hypertensionAnxiol ytic dependence 6 Jordy Hidalgo. [address], [place], [place], [address] , [place]. tel:[phone] Referring Provider: Wil[address], [place], [place], [address]. tel:[phone] OFFICE/OUTPA TIENT VISIT, [facility], [address], [place], [place], [address], [place] tel:[phone] [facility] HTN (chief complaint)D M (chief complaint)a nxiety1 (chief complaint) Type 2 diabetes mellitus without complicationsAnxio lytic dependenceEssentia l (primary) hypertensionEncoun ter for oth screening for malignant neoplasm of breast 6 Jordy Hidalgo. [address], [place], [place], [address] , [place]. [phone] Referring Provider: Wilfred Lopez [facility] A, [place], [place], [address]. tel:[phone] OFFICE/OUTPA TIENT VISIT, [facility], [address], [place], [place], [address], [place] tel:[phone] [facility] HTN1 (chief complaint)D M1 (chief complaint)A nxiety1 (chief complaint)S ick1 (chief complaint) Type 2 diabetes mellitus without complicationsEssen tial (primary) hypertensionAcute upper respiratory infection, unspecifiedAnxioly tic dependence 5 Jordy Hidalgo. [address], [place], [place], [address] , [place]. [phone] Referring Provider: Wilfred Lopez [facility] A, [place], [place], [address]. tel:[phone] OFFICE/OUTPA TIENT VISIT, [facility], [address], [place], [place], [address], [place] tel:[phone] [facility] HTN1 (chief complaint)D M1 (chief complaint)a nxiety1 (chief complaint)n oncompliant (chief complaint)c hest pain1 (chief complaint) Essential (primary) hypertensionType 2 diabetes mellitus without complications 5 Jordy Soto [address], [place], [place], [address] , [place]. tel:[phone] Referring Provider: Wilfred [address], [place], [place], [address]. tel:[phone] OFFICE/OUTPA TIENT VISIT, [facility], [address], [place], [place], [address], tel:[phone] [facility] DM1 (chief complaint)A nxiety1 (chief complaint)H TN1 (chief complaint)s leep apnea1 (chief complaint) Dietary surveillance and counselingType 2 diabetes mellitus w/o complicationEssent ial (primary) hypertensionOther sleep apnea 5 Jordy Hidalgo. [address], [place], [place], [address] , [place]. tel:[phone] Referring Provider: [address], [place], [place], [address]. tel:[phone] OFFICE/OUTPA TIENT VISIT, [facility], [address] [place], [address], [place] tel:[phone] [facility] DM (chief complaint)H TN (chief complaint)a nxiety (chief complaint) Dietary surveillance and counselingBrittle diabetesUnspecifie d essential hypertensionCurren t use of insulin 5 Jordy Soto [address], [place], [place], [address] , [place]. tel:[phone] Referring Provider: Wil[address], [place], [place], [address]. tel:[phone] OFFICE/OUTPA TIENT VISIT, [facility], [address] [place], [address], [place] tel:[phone] [facility] HTN (chief complaint)D M (chief complaint)s leep apnea (chief complaint) Dietary surveillance and counselingUnspecif ied essential hypertensionUnspec ified sleep apneaBrittle diabetesBMI 50.0 to 59.9 5 Jordy Soto [address], [place], [place], [address] , [place]. tel:[phone] Referring Provider: Rocky Spence, [address], [place], [place], [address]. tel:[phone] OFFICE/OUTPA TIENT VISIT, [facility], [address], [place], [place], [address], [place] tel:[phone] [facility] fatty liver (chief complaint)D M (chief complaint)H TN (chief complaint) Dietary surveillance and counselingUnspecif ied essential hypertensionOther specified disorders of liverBrittle diabetes 5 Jordy Hidalgo. [address], [place], [place], [address] , [place]. tel:[phone] Referring Provider: Rocky Spence, [address], [place], [place], [address]. tel:[phone] [facility], [address], [place], [place], [address], [place] tel:[phone] [facility] No Information 5 Jordy Hidalgo. [address], [place], [place], [address] , [place]. tel:[phone] OFFICE/OUTPA TIENT VISIT, [facility], [address], [place], [place], [address], [place] tel:[phone] [facility] Anxiety (chief complaint)D M (chief complaint) Dietary surveillance and counselingBrittle diabetesBlood pressure elevated 5 Jordy Hidalgo. [address], [place], [place], [address] , [place]. tel:[phone] Referring Provider: Rocky Spence, [address], [place], [place], [address]. tel:[phone] OFFICE/OUTPA TIENT VISIT, [facility], [address], [place], [place], [address], [place] tel:[phone] [facility] sleep apnea (chief complaint)A nxeity (chief complaint)D M (chief complaint) Dietary surveillance and counselingUnspecif ied sleep apneaBrittle diabetesUnspecifie d disorder of liver 5 Jordy Hidalgo. [address], [place], [place], [address] , [place]. tel:[phone] Referring Provider: Wilfred [address], [place], [place], [address]. tel:[phone] OFFICE/OUTPA TIENT VISIT, [facility], [address], [place], [place], [address], [place] tel:[phone] [facility] DM (chief complaint)s leep apnea (chief complaint)a nxiety (chief complaint) Dietary surveillance and counselingDiabetes Mellitus Type 2, UncomplicatedSleep ApneaUnspecified disorder of liver 5 Jordy Hidalgo. [address], [place], [place], [address] , [place]. [phone] Referring Provider: Wilfred [address], [place], [place], [address]. tel:[phone] OFFICE/OUTPA TIENT VISIT, [facility], [address], [place], [place], [address], [place] tel:[phone] [facility] DM (chief complaint)H TN (chief complaint)s leep apnea (chief complaint)L FT (chief complaint) Dietary surveillance and counselingDiabetes Mellitus Type 2, UncomplicatedHyper tension, UnspecifiedUnspeci fied disorder of liverSleep Apnea 5 Jordy Hidalgo. [address], [place], [place], [address] , [place]. [phone] Referring Provider: Wilfred [address], [place], [place], [address]. tel:[phone] OFFICE/OUTPA TIENT VISIT, [facility], [address], [place], [place], [address], [place] tel:[phone] [facility] anxiety (chief complaint)D M (chief complaint) Dietary surveillance and counselingDiabetes Mellitus Type 2, UncomplicatedSleep ApneaSedative, hypnotic or anxiolytic dependence, unspecified Fe 5 Jordy Hidalgo. [address], [place], [place], [address] , [place]. [phone] Referring Provider: Rocky Spence, [address], [place], [place], [address]. tel:[phone] OFFICE/OUTPA TIENT VISIT, [facility], [address], [place], [place], [address], [place] [phone] [facility] DM (chief complaint)a nxiety (chief complaint)H TN (chief complaint)s leep apnea (chief complaint) Dietary surveillance and counselingDiabetes Mellitus, Adult Onset, UncontrolledHypert ension, UnspecifiedSleep Apnea 5 Jordy Hidalgo. [address], [place], [place], [address] , [place]. [phone] Referring Provider: Wilfred [address], [place], [place], [address]. tel:[phone] OFFICE/OUTPA TIENT VISIT, [facility], [address], [place], [place], [address], [place] tel:[phone] [facility] DM (chief complaint)s leep apnea (chief complaint)a nxiety (chief complaint) Dietary surveillance and counselingDiabetes Mellitus Type 2, UncomplicatedSleep ApneaCentral hearing lossHypertension, Unspecified 4 Jordy Hidalgo. [address], [place], [place], [address] , [place]. tel:[phone] Referring Provider: Wilfred [address], [place], [place], [address]. tel:[phone] OFFICE/OUTPA TIENT VISIT, [facility], [address], [place], [place], [address], [place] tel:[phone] [facility] DM (chief complaint)l ow iron (chief complaint)a nxiety (chief complaint) AnemiaHypertension , UnspecifiedDiabete s Mellitus, Adult Onset, UncontrolledDietar y surveillance and counseling 4 Jordy Hidalgo. [address], [place], [place], [address] , . tel:[phone] Referring Provider: Rocky Spence, [address], [place], [place], [address]. tel:[phone] OFFICE/OUTPA TIENT VISIT, [facility], [address], [place], [place], [address], [place] tel:[phone] [facility] finger infection (chief complaint)a nxiety (chief complaint)D M (chief complaint) Dietary surveillance and counselingDiabetes Mellitus, Adult Onset, UncontrolledOnychi a and paronychia of fingerSleep ApneaHypertension, Unspecified 4 Jordy Hidalgo. [address], [place], [place], [address] , . tel:[phone] Referring Provider: Wilfred [address], [place], [place], [address]. tel:[phone] OFFICE/OUTPA TIENT VISIT, [facility], [address], [address], [place] tel:[phone] [facility] headache (chief complaint)a nxiety (chief complaint)s leep apnea (chief complaint)t innitus (chief complaint) Dietary surveillance and counselingHeadache Sleep ApneaCentral hearing loss 4 Jordy Hidalgo. [address], [place], [place], [address] , [place]. tel:[phone] Referring Provider: Wilfred [address], [place], [place], [address]. tel:[phone] OFFICE/OUTPA TIENT VISIT, [facility], [address], [place], [place], [address], [place] tel:[phone] [facility] DM (chief complaint)a nxiety (chief complaint)h and numbness (chief complaint) Dietary surveillance and counselingDiabetes Mellitus Type 2, UncomplicatedDistu rbance of skin sensationCervicalg ia 4 Jordy Hidalgo. [address], [place], [place], [address] , [place]. tel:[phone] Referring Provider: Wilfred [address], [place], [place], [address]. tel:[phone] OFFICE/OUTPA TIENT VISIT, [facility], [address], [place], [place], [address], [place] tel:[phone] [facility] DM (chief complaint)H TN (chief complaint)a nxiety (chief complaint)d izziness (chief complaint)s leep apnea (chief complaint) Diabetes Mellitus Type 2, UncomplicatedVerti goHypertension, UnspecifiedSleep Apnea 4 Jordy Hidalgo. [address], [place], [place], [address] , . tel:[phone] Referring Provider: Wilferd [address], [place], [place], [address]. tel:[phone] OFFICE/OUTPA TIENT VISIT, [facility], [address] [place], [address], [place] tel:[phone] [facility] DM (chief complaint)a nxiety (chief complaint)H TN (chief complaint) Dietary surveillance and counselingDiabetes Mellitus, Adult Onset, UncontrolledHypert ension, Unspecified 4 Jordy Hidalgo. [address], [place], [place], [address] , [place]. tel:[phone] Referring Provider: Wil[address], [place], [place], [address]. tel:[phone] OFFICE/OUTPA TIENT VISIT, [facility], [address], [place], [place], [address], [place] tel:[phone] [facility] Tinnitus (chief complaint)a nxiety (chief complaint)D M (chief complaint) Tinnitus, unspecifiedVertigo Diabetes Mellitus Type 2, UncomplicatedDieta ry surveillance and counseling 4 Jordy Hidalgo. [address], [place], [place], [address] , . tel:[phone] Referring Provider: Wilfrde [address], [place], [place], [address]. tel:[phone] OFFICE/OUTPA TIENT VISIT, [facility], [address], [place], [place], [address], tel:[phone] [facility] DM (chief complaint)H TN (chief complaint)a nxiety (chief complaint) Dietary surveillance and counselingDiabetes Mellitus Type 2, UncomplicatedHyper tension, Unspecified 4 Jordy Hidalgo. [address], [place], [place], [address] , [place]. tel:[phone] Referring Provider: [facility] [place], [place], [address]. tel:[phone] OFFICE/OUTPA TIENT VISIT, [facility], [address], [place], [place], [address], [place] tel:[phone] [facility] shingle (chief complaint)A nxiety (chief complaint)S inus (chief complaint)D M (chief complaint) Dietary surveillance and counselingHerpes zoster without mention of complicationSinusi tis, AcuteTinnitus, unspecifiedDiabete s Mellitus, Adult Onset, Uncontrolled 4 Jordy Hidalgo. [address], [place], [place], [address] , [place]. tel:[phone] Referring Provider: Wil[address], [place], [place], [address]. tel:[phone] OFFICE/OUTPA TIENT VISIT, [facility], [address], [place], [place], [address], [place] tel:[phone] [facility] anxiety (chief complaint)e ar pain (chief complaint)b ack pain (chief complaint) Dietary surveillance and counselingDietary surveillance and counselingTinnitus , unspecifiedLumbago Otalgia, unspecified 4 Jordy Hidalgo. [address], [place], [place], [address] , [place]. tel:[phone] Referring Provider: Wilfred [address], [place], [place], [address]. tel:[phone] OFFICE/OUTPA TIENT VISIT, [facility], [address], [place], [place], [address], [place] tel:[phone] [facility] HTN (chief complaint)D M (chief complaint)a nxiety (chief complaint) Dietary surveillance and counselingHyperten sarah, UnspecifiedDiabete s Mellitus, Adult Onset, Uncontrolled 4 Jordy Hidalgo. [address], [place], [place], [address] , [place]. [phone] Referring Provider: Wilfred [address], [place], [place], [address]. tel:[phone] OFFICE/OUTPA TIENT VISIT, [facility], [address], [place], [place], [address], [place] tel:[phone] [facility] DM (chief complaint)a nxiety (chief complaint) Dietary surveillance and counselingHyperten sarah, UnspecifiedDiabete s Mellitus, Adult Onset, Uncontrolled 4 Jordy Hidalgo. [address], [place], [place], [address] , [place]. tel:[phone] Referring Provider: Wilfred [address], [place], [place], [address]. tel:[phone] OFFICE/OUTPA TIENT VISIT, [facility], [address], [place], [place], [address], [place] tel:[phone] [facility] anxiety (chief complaint)U RI (chief complaint)D M (chief complaint) Dietary surveillance and counselingDiabetes Mellitus, Adult Onset, UncontrolledAcute upper respiratory infections of other multiple sites 3 Jordy Hidalgo. [address], [place], [place], [address] , [place]. tel:[phone] Referring Provider: Rocky Spence [address], [place], [place], [address]. tel:[phone] OFFICE/OUTPA TIENT VISIT, [facility], [address], [place], [place], [address], [place] tel:[phone] [facility] HTN (chief complaint)D M (chief complaint)a nxiety (chief complaint) Dietary surveillance and counselingHyperten sarah, UnspecifiedDiabete s Mellitus, Adult Onset, Uncontrolled 3 Jordy Hidalgo. [address], [place], [place], [address] , [place]. tel:[phone] OFFICE/OUTPA TIENT VISIT, [facility], [address], [place], [place], [address], [place] tel:[phone] [facility] HTN (chief complaint)a nxiety (chief complaint)f atigue (chief complaint) Dietary surveillance and counselingLumbagoH ypertension, UnspecifiedSleep Apnea 3 Jordy Hidalgo. [address], [address], [place], [place], [address] , [place]. tel:[phone] Referring Provider: Wilfred Lopez [address], [place], [place], [address]. tel:[phone] OFFICE/OUTPA TIENT VISIT, [facility], [address], [place], [place], [address], [place] tel:[phone] [facility] HTN (chief complaint)D M (chief complaint)a nxiety (chief complaint) Dietary surveillance and counselingLumbagoH ypertension, UnspecifiedDiabete s Mellitus Type 2, Uncomplicated 3 Jordy Hidalgo. [address], [address], [place], [place], [address] , [place]. tel:[phone] Referring Provider: Wilfred [address], [place], [place], [address]. tel:[phone] OFFICE/OUTPA TIENT VISIT, [facility], [address], [place], [place], [address], [place] tel:[phone] [facility] anemia (chief complaint)D M (chief complaint)a nxiety (chief complaint) AnemiaHypertension , UnspecifiedDiabete s Mellitus Type 2, UncomplicatedDieta ry surveillance and counseling 3 Jordy Hidalgo. [address], [place], [place], [address] , [place]. [phone] Referring Provider: Rocky Spence, [address], [place], [place], [address]. tel:[phone] OFFICE/OUTPA TIENT VISIT, [facility], [address], [place], [place], [address], [place] tel:[phone] [facility] anemia (chief complaint)D M (chief complaint)H TN (chief complaint) AnemiaDietary surveillance and counselingDiabetes Mellitus, Adult Onset, UncontrolledHypert ension, Unspecified 3 Jordy Hidalgo. [address], [place], [place], [address] , [place]. tel:[phone] Referring Provider: Rocky Spence [address], [place], [place], [address]. tel:[phone] OFFICE/OUTPA TIENT VISIT, [facility], [address], [place], [place], [address], [place] tel:[phone] [facility] anxiety (chief complaint)D M (chief complaint)b ronchitis (chief complaint) Dietary surveillance and counselingDiabetes Mellitus, Adult Onset, UncontrolledHypert ension, UnspecifiedBronchi tis, Acute 3 Jordy Soto [address], [place], [place], [address] , [place]. [phone] Referring Provider: Rocky Spence [address], [place], [place], [address]. tel:[phone] OFFICE/OUTPA TIENT VISIT, [facility], [address], [place], [place], [address], [place] tel:[phone] [facility] HTN (chief complaint)a nxiety (chief complaint)s ick (chief complaint) Acute upper respiratory infections of other multiple sitesHypertension, UnspecifiedDiabete s Mellitus, Adult Onset, Uncontrolled 3 Jordy Hidalgo. [address], [place], [place], [address] , [place]. tel:[phone] Referring Provider: Rocky Spence, [address], [place], [place], [address]. tel:[phone] OFFICE/OUTPA TIENT VISIT, [facility], [address], [place], [place], [address], [place] tel:[phone] [facility] HTN (chief complaint)D M (chief complaint)a nxiety (chief complaint) Dietary surveillance and counselingHyperten sarah, UnspecifiedDiabete s Mellitus, Adult Onset, Uncontrolled Jun- 3 Jordy Hidalgo. [address], [place], [place], [address] , [place]. [phone] Referring Provider: Wilfred [address], [place], [place], [address]. tel:[phone] OFFICE/OUTPA TIENT VISIT, [facility], [address], [place], [place], [address], [place] tel:[phone] [facility] HTN (chief complaint)V ision chanage (chief complaint)A nemia (chief complaint) Dietary surveillance and counselingAnemiaDi abetes Mellitus, Adult Onset, UncontrolledHypert ension, UnspecifiedCarotid Artery Disease, Unilateral 3 Jordy Hidalgo. [address], [place], [place], [address] , [place]. tel: [phone] Referring Provider: Wilfred [address], [place], [place], [address]. tel:[phone] OFFICE/OUTPA TIENT VISIT, [facility], [address], [place], [place], [address], [place] tel:[phone] [facility] cough (chief complaint)H TN (chief complaint) Dietary surveillance and counselingAcute upper respiratory infections of other multiple sitesHypertension, UnspecifiedDiabete s Mellitus, Adult Onset, Uncontrolled 3 Jordy Hidalgo. [address], [place], [place], [address] , [place]. [phone] Referring Provider: Wil[address], [place], [place], [address]. tel:[phone] OFFICE/OUTPA TIENT VISIT, [facility], [address], [place], [place], [address], [place] tel:[phone] [facility] anxiety (chief complaint)H TN (chief complaint)D M (chief complaint) Dietary surveillance and counselingHyperten sarah, UnspecifiedDiabete s Mellitus, Adult Onset, UncontrolledLumbag o 3 Jordy Hidalgo. [address], [place], [place], [address] , [place]. [phone] Referring Provider: Wil[address], [place], [place], [address]. tel:[phone] OFFICE/OUTPA TIENT VISIT, [facility], [address], [place], [place], [address], [place] tel:[phone] [facility] DM/HTN (chief complaint)a nxiety (chief complaint)a nemia (chief complaint) Dietary surveillance and counselingDiabetes Mellitus Type 2, UncomplicatedAnemi aLumbagoHypertensi on, Unspecified 2 Jordy Hidalgo. [address], [place], [place], [address] , [place]. tel:[phone] Referring Provider: Wilfred [address], [place], [place], [address]. tel:[phone] OFFICE/OUTPA TIENT VISIT, [facility], [address], [place], [place], [address], tel:[phone] [facility] back pain (chief complaint)a nxiety (chief complaint)D M (chief complaint) Dietary surveillance and counselingLumbagoD iabetes Mellitus Type 2, UncomplicatedHyper tension, Unspecified 2 Jordy Hidalgo. [address], [facility] [address], [place], [place], [address] , . tel:[phone] Referring Provider: Wilfred Lopez [facility] [address], [place], [place], [address]. tel:[phone] OFFICE/OUTPA TIENT VISIT, [facility], [address], [place], [place], [address], tel:[phone] [facility] anxiety (chief complaint)b ack pain (chief complaint)H TN (chief complaint)a nemia (chief complaint) Dietary surveillance and counselingLumbagoA nemiaHypertension, Unspecified 2 Jordy Hidalgo. [address], [place], [place], [address] , [place]. tel:[phone] Referring Provider: Wilfred Lopez [facility], [place], [place], [address]. tel:[phone] Family History Family Member Type Diagnosis Age At Onset Father Problem (finding) unknown Mother Problem (finding) Alive and well Brother Problem (finding) Alive and well Payers Payer name Insurance type Covered constitution party ID Authoriza tion(s) No Information Social [...] Of Treatment Date Type Action Status Goal Pap/HPV testing. Due on due Goal [...] due Goal Tdap. Due on due Goal Depression screening. Due on due Goal Pap/HPV testing. Due on due Goal Tdap. Due on due Goal Td vaccine. Due on 16 due Goal Pap/HPV testing. Due on due [...] due Goal Tdap. Due on due Goal Td vaccine. Due on due Goal Tdap. Due on due Goal Pap/HPV testing. Due on due Goal Depression screening. Due on due Goal Tdap. Due on due Goal Pap/HPV testing. Due on due Goal Depression screening. Due on due Goal Mammogram. Due on 5 due Goal Td vaccine. Due on 15 due Goal Pap/HPV testing. Due on due Goal Depression screening. Due on due Goal Mammogram. Due on 5 due Goal Td vaccine. Due on due Goal Tdap. Due on due Goal Pap/HPV testing. Due on due Goal Depression screening. Due on due Goal Mammogram. Due on due Goal Td vaccine. Due on due Goal Tdap. Due on due Goal Tdap. Due on due Goal Td vaccine. Due on due Goal Mammogram. Due on due Goal Pap/HPV testing. Due on due Goal Depression screening. Due on due Goal Pap/HPV testing. Due [...] due Goal Tdap. Due on due Goal Td vaccine. Due on due Goal Tdap. Due on due Goal Mammogram. Due on due Goal Pap/HPV testing. Due [...] ordered Referral Referred To: Tosha Kilpatrick [address] [facility] [address] [place], [phone] Ordered: Referrals: Tosha Kilpatrick. Evaluate and treat [...] or headache sleep apnea1 Pt has sleep background check coordinator ea Pt uses CPAP nightly. Pt still [...] or headache sleep apnea1 Pt has sleep background check coordinator ea. Pt has been using CPAP nightly [...] Mental Status Date Cognitive Assessment Orientation - [place] ed to time, place, person, situation.
--- OUTSIDE RECORDS SUMMARY | 2024-07-30 01:22 | XMS_ITS | Clinical Summary ---
Author Organization [facility] Address [address] [place] [id number] Care Team Providers Care Director Quality Assurance Name Role Phone Matias Warren MD Primary Care Provider [phone] Allergies Active Allergy Reactions Criticality Noted Date [...] drink = 0.6 oz pur e alcohol) [facility] Utilities Answer Date Recorded In the [...] often do you attend chur ch or christianity services? Never 07/23/2023 Do you belong to any clubs o r organizations such as gnosticist groups, unions, fraternal or athletic groups, or [...] place to sleep or slept in a intermediate (including now)? No 07/23/2023 Personal Safety Answer [...] on file Legal Sex Female 11:36 AM [employer] Gender Identity Not on file Sexual Orientation [...] [employer] MEDICARE [employer] MEDICARE [facility] MEDICARE ADVANTAGE Advance Directives For more information, please contact: [phone] * Full Code (Latest Code Status on File) Date Activated Date Inactivated Comments 07/23/2023 3:39 PM 07/25/2023 6:34 PM Care Teams Director Quality Assurance Relationship Specialty Start Date End Date Matias Warren MD [address] [place] [id number] PCP - General Internal Medicine 07/20/23
--- OUTSIDE RECORDS SUMMARY | 2024-07-30 01:22 | XMS_ITS | Patient Health Record ---
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 Name Role Phone Kelvin MEMBRENO, Andres Primary Care Provider Rudy Moses Unavailable [phone] ALLERGIES Allergen (clinical drug ingredient) Drug/Non Drug Allergy documented on EMR Reaction Allergy Type Onset Date Status cephalexin Cephalexin Unknown Drug Allergy Activ e morphine Morphine Sulfate Unknown Drug Allergy Active Floxin Otic Unknown Drug Allergy Activ e meperidine Demerol Unknown Drug Allergy Active ciprofloxacin Cipro Unknown Drug Allergy Act reynaldo REASON FOR REFERRAL No Information MEDICATIONS Medication SIG (Take, Route, Frequency, Duration) Notes Start Date End Date Status Veltassa 8.4 GM 1 packet dissolved i n water. Take other medications at least 3 hours before or 3 hours after this medication Orally Once a day for 30 day(s) Unknown Ozempic (0.25 or 0.5 MG/DOSE) 2 MG/3ML as directed Subcutaneous once a week LAST DOSE 2 WEEKS AGO Unknown Vitamin D (Ergocalciferol) 51784 UNIT 1 capsule Orally Once a week Unknown Folic Acid 400 MCG 1 tablet Orally Once a day for 30 day(s) Unknown Aspirin 81 81 MG 1 tablet Orally Once a day for 30 day(s) Unknown Vitamin C 500 MG as directed Orally Unknown Fluconazole 150 MG as directed Orally Unknown Kerendia 10 MG 1 tablet Orally Once a day for 30 day(s) Unknown Vitamin B-12 1000 MCG 1 tablet Orally On ce a day for 30 day(s) Unknown Irbesartan 300 MG 1 tablet Orally Once a day for 30 day(s) Unknown diazePAM 10 MG 1 tablet as needed Orally three times a day Unknown Torsemide 10 MG 1 tablet Orally Once a day for 90 days Active Carvedilol 25 MG 1 tablet with food Orally Twice a day Unknown Ferrous Sulfate 325 (65 Fe) MG 1 tablet Orally two times a day for 90 days Active amLODIPine Besylate 10 MG 1 tablet Orally Once a day for 30 day(s) Unknown Iron (Ferrous Sulfate) 325 (65 Fe) MG 1 tablet Orally Once a day Unknown Jardiance 25 MG 1 tablet Orally Once a day for 30 day(s) Unknown IMMUNIZATIONS Vaccine Route Administration Date Status Comme nts Influenza Unknown 12/23/2022 Others SOCIAL HISTORY Tobacco Use: Social History Observation Description Date Details (start date - stop date) Former Smoker NA - NA Sex Assigned At : Social History Observation Description Sex Assigned At Unknown Tobacco Use/Smoking Question Answer Notes You are a former smoker PROBLEMS Problem Type ICD Code Onset Dates Problem Status W/U Status Risk SNOMED Code Notes Problem CHRONIC KIDNEY DISEASE STAGE 3 UNSPECIFIED (N18.30) Active confirmed Chronic kidney disease stage 3 (990151621) Problem Essential (primary) hypertension (I10) Active confirmed Essential hypertension (32491069) Problem 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) Active confirmed Diabetic renal disease (403482599) Problem Type 2 diabetes mellitus with diabetic neuropathy, unspecified (E11.40) Active confirmed Diabetic peripheral neuropathy associated with type 2 diabetes mellitus (7979435974505) Problem 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) Active confirmed 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 (95942200804824) Problem Obesity, unspecified (E66.9) Active confirmed Obesity (917682631) Problem Vitamin D deficiency, unspecified (E55.9) Active confirmed Vitamin D deficiency (61387897) Problem Iron deficiency anemia, unspecified (D50.9) Active confirmed Iron deficiency anemia (51316247) PLAN OF TREATMENT Pending Test Test Name Order Date Ultrasound : Kidneys, bilateral 10/15/19 Immunofixation, Serum 10/14/2022 PTH, Intact 10/14/2022 Immunofixation, Urine 10/14/2022 URINALYSIS, COMPLETE W/REFLEX TO CULTURE INCLUDES MACRO AND MICRO 10/14/2022 Ferritin 10/14/2022 URINE PROTEIN W/CREAT RATIO 10/14/2022 Future Test Test Name Order Date RENAL PANEL 11/25/2022 CBC without Differential 11/25/2022 Iron and TIBC 03/25/2023 RENAL PANEL 03/25/2023 Ferritin 03/25/2023 Vitamin D, 25-Hydroxy 03/25/2023 URINE PROTEIN W/CREAT RATIO 03/25/2023 CBC without Differential 03/25/2023 Insurance Providers Payer Name Payer Address Payer Phone Subscriber Number Group Number Insured Name Patient Relationship to Insured Coverage Start Date Coverage End Date Andres [employer] [address] [place], [place] [id number] Joann Tavares Self - patient is the insured [place] [address] [place] [address] [id number] Joann Tavares Self - patient is the insured [facility] [address] [address] [place] [address] [phone] [id number] Joann Tavares Self - patient is the insured MEDICAL (GENERAL) HISTORY Medical History History ICD Code Diabetes mellitus type 2 uncomplicated Essential hypertension Generalized anxiety disorder Iron deficiency anemia Nonorganic sleep apnea adult Obesity morbid Vitamin D deficiency [place] Renal: 12/13/2022: Small left kidney without evidence of nephrolithiasis, hydronephrosis, or solid renal mass. Surgical History Surgery Date(Month/Year) C-Sections 1992,1993,2002 Tubal ligation 2013 Hospitalization History Reason Date(Month/Year) see surgical history
--- OUTSIDE RECORDS SUMMARY | 2024-07-30 01:22 | XMS_ITS | CONTINUITY OF CARE DOCUMENT ---
Author Name cecilia brooks Address Unknown Organization [facility] Address [address] [place] [address] Phone [phone] Care Team Providers Care Wind Tunnel Mechanic Name Role Phone Nicole MEMBRENO, Hal Unavailable [phone] Hal Rivera MD Unavailable [phone] TOM LILLY MD Unavailable [phone] PROBLEMS Condition Status Date Provider Notes Hypoalbuminemia [...] crp and low lpa active Leyla Ventimiglia RETAIL BAKERY MANAGER DID NOT GIOVANNA STATIN TUBAL LIGATION STERILIZATION STATUS completed - Primo Hanks NP ANGINA PECTORIS;WILL NUCLEAR completed 201 - Primo Hanks NP SLEEP APNEA active Primo Hanks NP ANXIETY DISORDER completed - Primo Hanks NP UPPER RESPIRATORY INFECTION, ACUTE completed - Primo Hanks DOCKET SPECIALIST Hypertension;neg duplex active Hal lundberg MD Anasarca completed - Hal Rivera MD Vitamin D deficiency active Primo Hanks DOCKET SPECIALIST Screening active Hal Rivera MD Renal disease, chronic, mild;neg us and renal angio active Hal Rivera MD Microalbuminuria active Hal Rivera MD Folate-deficiency active Hal Rivera MD B12 deficiency active Hal Rivera MD covid 19;2020;HAD VACCINE active Hal sullivan MD Hypertriglyceridemia active Leyla Saulmiandrew RETAIL BAKERY MANAGER VASCA[A NOT COVRED CAD;NEG CAROTID active Hal Rivera MD Elevated LFT's active Hal Rivera MD Diastolic CHF active Hal Rivera MD Pulmonary hypertension active Hal Rivera MD Chronic back pain active Leyla barlow RETAIL BAKERY MANAGER ENCOUNTERS Date Type Provider Location Encounter Diag nosis 3 - 3 In-person encounter Office Visit Hal Rivera MD [place] [facility] Hyperlipidemia;with high crp and low lpaHypertriglyceridemiaChronic back pain 1 - 1 In-person encounter Office Visit Hal Rivera MD [facility] [place] [facility] Renal disease, chronic, mild;neg us and renal angioCAD;NEG CAROTIDElevated LFT'sDiastolic CHFPulmonary hypertension 8 - 8 In-person encounter Office Visit Hal Rivera MD [facility] [place] Office 9 - 1 In-person encounter Office Visit Eyad Miramontes MD [facility] [place] Office 0 - 0 In-person encounter Office Visit Hal Rivera MD [facility] [place] [facility] ScreeningRenal disease, chronic, mild;neg us and renal angiocovid ;HAD VACCINE 1 - 1 In-person encounter Office Visit Hal Rivera MD [facility] [place] [facility] DYSPNEA ON EXERTIONDIZZINESS;WILL WUAnasarcaRenal disease, chronic, mild;neg us and renal angioMicroalbuminuriaFolate-defici encyB12 deficiency 6 - 7 In-person encounter Office Visit Hal Rivera MD [facility] HTN WHITE COAT;LABS [place] 2010OBESITYANEMIA, IRON DEFICIENCYTUBAL LIGATION STERILIZATION STATUSANGINA PECTORIS;WILL NUCLEARSLEEP APNEAANXIETY DISORDERUPPER RESPIRATORY INFECTION, ACUTEHypertension;neg duplexVitamin D deficiency 3 - 9 In-person encounter Office Visit [facility] Office 4 - 0 In-person encounter Office Visit [facility] Office 5 - 9 In-person encounter Office Visit [facility] Office 7 - 3 In-person encounter Office Visit [facility] Office 4 - 4 In-person encounter Office Visit Hal Rivera MD [place] [facility] OBESITYDIABETES MELLITUSDYSPNEA ON EXERTIONANEMIA, IRON DEFICIENCYHyperlipidemia;with high crp and low lpaSLEEP APNEA VITAL SIGNS Date Observation Value Provider Body Mass Index (Ratio) 54.20 kg/m2 Luli Rivera MD respiratory rate E&M 16 /min Leyla Ventimiglia RETAIL BAKERY MANAGER blood pressure, diastolic 80 mm[Hg] Md ryan [employer] blood pressure, systolic 168 mm[Hg] Gaby dubois [employer] oxygen saturation, oximetry 96 % [facility] pulse rate 85 /min [facility] blood pressure, cuff size regular Md ryan [employer] weight E&M 315.8 [lb_av] Mdryan Cohn height E&M 64 [in_i] [facility] Body Mass Index (Ratio) 54.92 [...] er height E&M 64 [in_i] Gris Swartze [facility] Body Mass Index (Ratio) 54.41 [...] injector subcutaneously once a week Leyla Ventimiglia RETAIL BAKERY MANAGER torsemide 10 mg tablet active Leyla Ventimiglia RETAIL BAKERY MANAGER torsemide 20 mg tablet active Leyla Ventimiglia RETAIL BAKERY MANAGER Zetia 10 mg tablet active TAKE 1 TABLET BY MOUTH EVERY DAY Leyla Ventimiglia RETAIL BAKERY MANAGER Soaanz 40 mg tablet active 1 [...] by mouth twice a day - Leyla KgFormerly [facility] Nexlizet 180-10 mg tablet completed Take 1 tablet by mouth once a day - Elylaharleen Saul[facility]m [facility] DAMICOP Kerendia 20 mg tablet completed [...] mouth once a day - Leyla Sarina [facility] aspirin 81 mg tablet,chewable active Take 1 tablet by mouth once a day Hal Rivera MD cyanocobalamin (vitamin B-12) 1,000 mcg capsule active TAKE 1 CAPSULE BY MOUTH EVERY DAY [facility] ergocalciferol (vitamin D2) 1,250 mcg (50,000 unit) capsule active Take 1 capsule by mouth once a week [facility] torsemide 40 mg tablet completed every [...] TAKE 1 TABLET BY MOUTH ONCE DAILY [facility] Ozempic 0.25 mg or 0.5 mg(2 [...] history of marijuana use no Leyla Ventimiglia [facility] drug use no Leyla Ventimig desiree [facility] alcohol use no Leyla Ventimig desiree [facility] smoking status Former smoker Leyla Venti miglia [facility] smoking status Former smoker Montserrattoño Stoll [...] munoz smoking status former smoker Gris Harden [facility] physical exercise, frequency, days per [...] Coverage type [place] red constitution party ID [facility] [id number] ADVANCE DIRECTIVES Name Date DISCUSSED - NO DECISION MADE TREATMENT PLAN Date Name Performer [id number],C,s core 54, neg stres in 05 and nuc in 11 Hal Rivera MD [id number],C,34 Hal sullivan MD [id number],S, 9 .4 Hal Rivera MD [id number],S, Hal lundberg MD [id number],S, 3 70 Hal Rivera MD [id number],B, Hal lundberg MD [id number],B, Hal lundberg MD [id number],C,N EEDS COLONS S he is anemic and has a hx of iron deficiency. Her anemia is microcytic and I suspect that she is iron deficient again given her recent vegetarian diet. I will check an iron panel and she will take PO iron for now as well as vitamin B12. She may need IV iron infusions as well. Hal Rivera MD [id number],S,n eg echo, neg aaa n eg pro, heg holter, neg brai ct n eg stres 05, neg carotdi duples n eg nuc 11 Hal Rivera MD [id number],B,3 6 2 5 Hal Rivera MD [id number],S, H er updated medication list for this [...] rior BP: 169/87 (11/07/2022) Hal Rivera MD [id number],S, Hal lundberg MD [id number],S, C ontinue CPAP use. Hal Rivera MD [id number],S, Hal Serot toño MEMBRENO [id number],S, Hal Serot a [id number],S,370 Hal luis MD [id number],S,some day will need col Hal Rivera MD [id number],S,9.4 Hal luis MD [id number],S,25 Hal sullivan MD [id number],B, n m pro Hal Rivera MD [id number],S, n m pro Hal Nicole MEMBRENO [id number],S,n eg pro, heg holter, neg brai ct n eg stres 05, neg carotdi duples n eg nuc 11 Hal Rivera MD [id number],C,nm pro Hal Rivera MD [id number],C,neg stres 05, neg carotdi duples Hal Rivera MD [id number],C,Continue CPAP use. Primo Duboiscarolin DOCKET SPECIALIST [id number],C,T he patient has severe vitamin D deficiency. I will start vitamin D 50,000 units per week. Primo Roncarolin DOCKET SPECIALIST [id number],C,S he is anemic and has a hx of iron deficiency. Her anemia is microcytic and I suspect that she is iron deficient again given her recent vegetarian diet. I will check an iron panel and she will take PO iron for now as well as vitamin B12. She may need IV iron infusions as well. Primo Hanks DOCKET SPECIALIST [id number],C,N ot well controlled. She did not tolerate Metformin in the past due to GI issues. I will add Jardiance 25mg qday as noted above and I will also add Ozempic. She will hopefully be able to decrease and eventually with further medication adjustment, come off insulin entirely. Primo Hanks DOCKET SPECIALIST [id number],C,L ipids are significantly elevated. I will add Rosuvastatin 20mg qday and Ezetimibe 10mg qday. Her lipids will also see improvement with better glycemic control. Primo Hanks DOCKET SPECIALIST [id number],C,B lood pressure is elevated. I will add Carvedilol 12.5mg BID. I will continue Amlodipine and Irbesartan without change. Diuresis will also improve her blood pressure with Jardiance and Kerendia. I will stop Clonidine as it is short acting and causes rebound hypertension. She will be better served with longer acting medications that are taken routinely. Primo Hanks DOCKET SPECIALIST [id number],C,T he patient has generalized anasarca and significant [...] qday and Kerendia 10m qday. Primo Hanks DOCKET SPECIALIST Cardiology:patient h as chronic back that limits her ability to walk more than 50 feet at a time. She has now purchased a scGetFeedbackter d/t these mobility issues H ave recommended PT for back pain along with gait and balance training [facility] Cardiology:continue with yelitza sarah stockings [facility] Cardiology:Last Hgb A1C 8% in 08/2023 [...] 1 tablet by mouth once a day [facility] Cardiology:The patie nt is using CPAP on a regular basis. The patient has been benefiting from therapy and should continue use. [facility] Cardiology:Remains o n Jardiance A ppears [...] tablet by mouth once a day [facility] Cardiology:LDL 112 p atient does not [...] Take 1 tablet by mouth every day [facility] Cardiology:BP 168/80 above goal, reports better [...] 1 tablet by mouth once a day [facility] Cardiology:on iron and last hgb was 8.6 [facility] Cardiology:on replacement therap y [facility] :neg hep panel Hal Rivera MD [...] Cardiology: C ontinue CPAP use. Angelajose Lopezaren DOCKET SPECIALIST Cardiology:CRP 6.3 H er updated medication list for this problem includes: Ezetimibe 10 Mg Tablet (Ezetimibe) ..... Take 1 tablet by mouth once a day Rosuvastatin 20 Mg Tablet (Rosuvastatin) ..... Take 1 tablet by mouth once a day Angela Johnluri DOCKET SPECIALIST Cardiology: N ARTI LESTERInes S he is anemic and has a hx of iron deficiency. Her anemia is microcytic and I suspect that she is iron deficient again given her recent vegetarian diet. she will take PO iron for now as well as vitamin B12. She may need IV iron infusions as well. planning to consult with laundry tech [facility] Gwenri DOCKET SPECIALIST Cardiology: 9 .4 N ot controlled well. Was on ozempic, which controlled her sugars well per pt. s topped due to impaired renal function e ncoraged to resume Angela Johnluri DOCKET SPECIALIST Cardiology: 3 70 [facility] Cardiology: H er updated medication list for this problem includes: Ezetimibe 10 Mg Tablet (Ezetimibe) ..... Take 1 tablet by mouth once a day Rosuvastatin 20 Mg Tablet (Rosuvastatin) ..... Take 1 tablet by mouth once a day Angela Nalluri DOCKET SPECIALIST Cardiology:swelling improved with toresemide, still some present. Reports mild pain. V enous duplex shows severe venous insufficiency bilaterally r ecommeded to wear compression stockings and ambulate more [facility] Johnluri DOCKET SPECIALIST Cardiology: s core 54, neg stres in 05 and nuc in 11 [facility] D[facility]ET SPECIALIST Cardiology:Renal US showed Small left kidney without evidence of nephrolithiasis, hydronephrosis, or solid renal mass. R enal duplex: no renal artery stenosis bilaterally E GFR 34, cr 1.8 C T vs angiogram CO2, to avoid/raduce dye. Explained risks and benefits. p atient would like to proceed with renal angiogram. with CO2 Angela Nalluri DOCKET SPECIALIST Cardiology: g fr 34 Angelajose Lopezluri DOCKET SPECIALIST :score 54, neg stres in 05 and n uc in 11 Hal Rivera MD :34 Hal Rivera MD Cardiology: 9 .4 Hal Rivrea MD Cardiology Hal Rivera MD Cardiology: 3 [...] medications that are taken routinely. Primo Hanks DOCKET SPECIALIST Cardiology:The patie nt has generalized anasarca and [...] One tab. daily Orders: C omplete Echo (CPT-25091) H olter Monitor 24 Hr (CPT-46688) S pirometry (CPT-38334) S tress Test - Adenosine (46095) Hal Rivera MD follow up: O rders: C omplete Echo (CPT-09562) H olter Monitor 24 Hr (CPT-03183) S pirometry (CPT-76039) S tress Test - Adenosine (14377) Hal Rivera MD follow up: H er updated medication list for this problem includes: Aspirin 81 Mg Tabs (Aspirin) ..... One tab. daily Altace 5 Mg Caps (Ramipril) ..... One tab. daily Orders: C omplete Echo (CPT-20968) H olter Monitor 24 Hr (CPT-65058) S pirometry (CPT-27802) S tress Test - Adenosine (06550) Hal Rivera MD follow up: H er updated medication list for this problem includes: Aspirin 81 Mg Tabs (Aspirin) ..... One tab. daily Altace 5 Mg Caps (Ramipril) ..... One tab. daily Orders: C omplete Echo (CPT-90052) H olter Monitor 24 Hr (CPT-49063) S pirometry (CPT-04554) S tress Test - Adenosine (49727) Hal Rivera MD follow up: H er updated medication list for this problem includes: Aspirin 81 Mg Tabs (Aspirin) ..... One tab. daily Pravachol 40 Mg Tabs (Pravastatin sodium) ..... One tab. daily Altace 5 Mg Caps (Ramipril) ..... One tab. daily Orders: C omplete Echo (CPT-44009) H olter Monitor 24 Hr (CPT-10552) S pirometry (CPT-36755) S tress Test - Adenosine (92738) Hal Rivera MD follow up: H er updated medication list for this problem includes: Aspirin 81 Mg Tabs (Aspirin) ..... One tab. daily Orders: C omplete Echo (CPT-12281) H olter Monitor 24 Hr (CPT-47779) S pirometry (CPT-14913) S tress Test - Adenosine (63435) Hal Rivera MD follow up: O rders: C omplete Echo (CPT-33506) H olter Monitor 24 Hr (CPT-59480) S pirometry (CPT-10997) S tress Test - Adenosine (14434) Hal Rivera MD follow up: O rders: C omplete Echo (CPT-61879) H olter Monitor 24 Hr (CPT-42679) S pirometry (CPT-13527) S tress Test - Adenosine (55129) Hal Rivera MD follow up Hal Rivera [...]
--- OUTSIDE RECORDS SUMMARY | 2024-07-30 01:22 | XMS_ITS | Referral Summary ---
Author Organization [facility] Address [address] [place] [phone] Care Team Providers Care Dispatcher Chief Coal Slurry Name Role Phone Matias Warren MD Primary Care Provider [phone] Allergies Active Allergy Reactions Criticality Noted Date [...] drink = 0.6 oz pur e alcohol) [facility] Utilities Answer Date Recorded In the past 12 months has [employer], [employer], or water [employer] threatened to shut off services in your [...] often do you attend chur ch or adventism services? Never 07/23/2023 Do you belong to any clubs o r organizations such as congregation groups, unions, fraternal or athletic groups, or [...] place to sleep or slept in a long term (including now)? No 07/23/2023 Personal Safety Answer [...] on file Legal Sex Female 11:36 AM RETAIL BRANCH MANAGER Gender Identity Not on file Sexual Orientation [...] Plan of Treatment Not on file Insurance Shippable MEDICARE [facility] MEDICARE [facility] MEDICARE ADVANTAGE Advance Directives For more information, please contact: [phone] * Full Code (Latest Code Status on File) Date Activated Date Inactivated Comments 07/23/2023 3:39 PM 07/25/2023 6:34 PM Care Teams Dispatcher Chief Coal Slurry Relationship Specialty Start Date End Date Matias Warren MD [address] [place] [id number] PCP - General Internal Medicine 07/20/23
--- OUTSIDE RECORDS SUMMARY | 2024-07-30 01:22 | XMS_ITS | Clinical Summary ---
Author Organization [facility] [employer] [facility] [employer] [facility] Address [address] [address] Phone Care Team Providers Care Monkey Keeper Name Role Phone Matias Warren MD Primary Care Provider [phone] Allergies Active Allergy Reactions Criticality Noted Date [...] time each day Active ergocalciferol 1.25 MG (76822 UT) capsule Take 50,000 Units by mouth [...] 8.6(A) 8.7 - 10.7 mg/dL eGFR Non-Afr Barbadian 25(L) Hemoglobin A1C 8.5(A) 4.0 - 6.0 Glucose, UA 4+ mg/dL Bilirubin, UA Negative Ketones, UA Negative Urine Specific [place] 1.015 Blood, UA 3+ Randy/ul pH, UA [...] Recently Relevant to Health Maintenance Insurance Medicare [facility] Care Teams Monkey Keeper Relationship Specialty Start Date End Date Matias Warren MD [address] [place] [id number] PCP - General Internal Medicine 07/24/23
--- OUTSIDE RECORDS SUMMARY | 2024-07-30 01:22 | XMS_ITS | Encounter Summary ---
Author Organization [facility] Address [address] [place] [address] Care Team Providers Care Machine Worker Name Role Phone Unavailable Primary Care Provider Unavailabl e Encounter Details Date Type Department Care Team (Late st Contact Info) Description 07/28/2024 External Device Data [facility] Provider, Abstract NO ADDRESS ON FILE Social History Tobacco Use Types Packs/Day Years Used Date Smoking Tobacco: Never Assessed Comments Unknown Sex and Gender Information Value Date Recorded Sex Assigned at Not on file Legal Sex Female 4:57 PM CDT Gender Identity Not on file Sexual Orientation Not on file documented as of this encounter Plan of Treatment Not on file documented as of this encounter Visit Diagnoses Not on filedocumented in this encounter
--- OUTSIDE RECORDS SUMMARY | 2024-07-30 01:22 | XMS_ITS ---
Author Organization [facility] Address [address] [place] [id number] Care Team Providers Care Roll Handler Name Role Phone Kelvin MEMBRENO, Andres Primary Care Provider Rudy Moses Unavailable [phone] REASON FOR VISIT NO SHOW/RESCHEDULED MULTIPLE APPTS Encounters Encounter Location Date Provider Diagnosis [facility] [address] [id number] 06/24/2023 Rudy Veloz PLAN OF TREATMENT No Information
--- OUTSIDE RECORDS SUMMARY | 2024-07-30 01:23 | XMS_ITS | Clinical Summary ---
Author Organization [facility] Address [address] [facility] Attn: Epic Prelude ADT BARRY LURISA [address] Care Team Providers Care Dry End Operator Name Role Phone Unavailable Primary Care Provider Unavailabl e Medications amLODIPine (NORVASC) 10 mg tablet Take 1 Tablet (10 mg) by mouth daily. 90 Tablet 12/20/19 24 12:45 PM CDT 024 Active insulin glargine-yfgn 100 unit/mL vial Inject 60 units at bedtime 30 mL 2 01/29/20 24 2:26 PM KEY ACCOUNT EXECUTIVE 024 Active tirzepatide (Mounjaro) 2.5 mg/0.5 mL Pen Injector Inject 1 pen injector subcutaneously once a week. 2 mL 3 02/18/20 24 1:58 PM KEY ACCOUNT EXECUTIVE 024 Active ezetimibe (Zetia) 10 mg tablet Take 1 Tablet (10 mg) by mouth daily. 90 Tablet 5 02/18/20 24 1:58 PM KEY ACCOUNT EXECUTIVE 024 Active torsemide (DEMADEX) 10 mg Tablet Take 1 tablet by mouth daily 90 Tablet 04/15/19 25 6:48 PM KEY ACCOUNT EXECUTIVE 024 Active torsemide (DEMADEX) 20 mg tablet TAKE ONE TABLET DAILY ALONG WITH A 10 MG TO EQUAL 30 MG DAILY 30 Tablet 5 07/27/19 25 4:14 PM CDT 025 Active insulin lispro (HumaLOG,ADMEL OG) 100 unit/mL pen syringe INJECT 14 UNITS WITH MEALS 15 mL 2 04/12/19 25 3:26 PM KEY ACCOUNT EXECUTIVE 025 Active Insulin Syringe-Needle U-100 (BD Insulin Syringe Ultra-Fine) 1 mL 31 gauge x 5/16 Syringe USE FOR INSULIN INJECTIONS 200 Each 04/12/19 25 3:26 PM KEY ACCOUNT EXECUTIVE 025 Active ferrous sulfate 325 mg (65 mg iron) tablet Take 1 Tablet (325 mg) by mouth daily. 100 Tablet 04/12/19 3:26 PM KEY ACCOUNT EXECUTIVE 025 Active patiromer calcium sorbitex (Veltassa) 25.2 [...] daily 30 Packet 04/12/19 25 3:26 PM KEY ACCOUNT EXECUTIVE 025 Active cefdinir (OMNICEF) 300 mg capsule [...] 06/02/19 6:03 PM CDT 025 Active Insulin [place], Disposable, (BD Ultra-Fine Short Pen Needle) 31 [...] the morning. 90 Tablet 04/12/19 3:26 PM KEY ACCOUNT EXECUTIVE 025 2024 Discontinued diazePAM (VALIUM) 10 mg tablet Take 1 Tablet (10 mg) by mouth 3 times daily as needed for anxiety. 84 Tablet 06/29/19 25 6:49 PM CDT 025 2024 Discontinued(R dakota) fluconazole (DIFLUCAN) 150 mg tablet Take 0.5 Tablets (75 mg) by mouth one time only for 1 dose. 1 Tablet 07/14/19 6:51 PM CDT 025 2024 Encounters Date Type Department Care Team Description 07/28/2024 External Device Data [facility] Provider, Abstract 06/22/2024 External Device Data [facility] Provider, [...]
--- NOTE | 2024-07-30 06:14 | WPDHPUPDATE1 ---
History and Physical Update Update Date/Time: 07/30/24 06:14 History and Physical has been reviewed, including an updated exam of the patient. There are NO changes in the patient's condition. Risks, benefits, and alternatives have been discussed and questions answered. Patient agrees to proceed with procedure.
[2024-07-30 12:30] VITALS: BP 140/67; PULSE 74; RESP 20; TEMP 36.7; O2SAT 100
[2024-07-30 13:22] LABS: Glucose Point of Care 246 mg/dl (65-105)
[2024-07-30] MEDS: ACETAMINOPHEN 500 MG TABLET 1000 MG PO (13:25)
[2024-07-30 13:34] LABS: BEDSIDEPREGUCG Negative (Negative)
[2024-07-30 13:45] VITALS: BP 230/108; PULSE 74; O2SAT 98
[2024-07-30 13:55] VITALS: BP 227/107; PULSE 74; O2SAT 99
[2024-07-30] MEDS: LIDOCAINE 1% LOCAL INJ 10 ML VIAL 20 ML INFILTRATE (14:03)
[2024-07-30 14:05] VITALS: BP 232/110; PULSE 72; O2SAT 97
[2024-07-30 14:15] VITALS: BP 219/100; PULSE 79; O2SAT 99
--- NOTE | 2024-07-30 14:21 | P.OP_ITS ---
Procedure Note - Detailed Date of Procedure 07/30/24 Pre-op Diagnosis irregular excessive bleeding Post-op Diagnosis Same Procedure Performed Hysteroscopy / dilatation curettage /Min nerve ablation Surgeon Too Ross MD Anesthesia Local Indications this is a 49-year-old female with heavy vaginal bleeding and thickened endometrium Findings large clots were seen in the uterus. The uterus sounded to 10cm. No definitive abnormalities present. Description of Procedure Patient was prepped draped in normal sterile fashion placed in the dorsal lithotomy position. A weighted speculum was placed in the vagina and the anterior lip of the cervix grasped with single-tooth tenaculum. Tube for 5mm L of 1% xylocaine anesthesia placed at 2:48 a.m. 10:00 a.m. respectively the cervix uterus sounded 10cm. Serial dilatation left followed by fragmented dilators passing the 5mm visualizing hysteroscope using normal saline with visualizing medium. Clots were present thick endometrium was present but no d efinitive abnormalities. Uterus was scraped over the entire 360? removing a lot of clots and debris. The the nerve a instrument was placed in the uterus and the uterus then burned at 120seconds. The instruments withdrawn. Blood loss estimated 25cc. All sponge, needle, and counts were correct. There were no immediate complications Estimated Blood Loss 25 Drains No Packing No Pathology Yes Complications No immediate complications Condition Stable Disposition PACU
[2024-07-30 14:25] VITALS: BP 188/75; BP 235/107; PULSE 67; PULSE 68; RESP 16; O2SAT 100; O2SAT 99
== END 2024-07-30 15:00 | disposition home or self-care (01) ==
PROVIDERS: Visit Provider Obstetrics & Gynecology
PROC: 0U5B8ZZ Destruction of Endometrium, Via Natural or Artificial Opening Endoscopic (ICD-10-PCS; CPT 58563; principal; 2024-07-30 14:30)
DX: R93.89 Abnormal findings on diagnostic imaging of other specified body structures (principal); D64.9 Anemia, unspecified; I12.9 Hypertensive chronic kidney disease with stage 1 through stage 4 chronic kidney disease, or unspecified chronic kidney disease; E11.22 Type 2 diabetes mellitus with diabetic chronic kidney disease; N18.4 Chronic kidney disease, stage 4 (severe); G47.33 Obstructive sleep apnea (adult) (pediatric); Z79.4 Long term (current) use of insulin; Z79.84 Long term (current) use of oral hypoglycemic drugs; Z99.89 Dependence on other enabling machines and devices; Z98.890 Other specified postprocedural states
CPT/HCPCS: 58563; 82948; 88305; A9270; J2003

== ENCOUNTER 2024-08-26 16:14 | Outpatient (CLI) | payer OTHER, SELFPAY ==
--- OUTSIDE RECORDS SUMMARY | 2024-08-26 16:18 | XMS_ITS | Clinical Summary ---
Author Organization [facility] Address [address] [place] [phone] Care Team Providers Care Snowboard Instructor Name Role Phone Matias Warren MD Primary Care Provider [phone] Allergies Active Allergy Reactions Criticality Noted Date [...] drink = 0.6 oz pur e alcohol) [facility] Utilities Answer Date Recorded In the past [...] often do you attend chur ch or church services? Never 07/23/2023 Do you belong to any clubs o r organizations such as buddhist groups, unions, fraternal or athletic groups, or [...] place to sleep or slept in a care home (including now)? No 07/23/2023 Personal Safety Answer [...] on file Legal Sex Female 11:36 AM INNERSOLE FITTER Gender Identity Not on file Sexual Orientation [...] 1:51 PM CDT Height 162.6 cm (5' 4) 08/12/2023 1:51 PM CDT Body Mass Index 58.98 08/12/2023 1:51 PM CDT Plan of Treatment Health Maintenance Due Date Last Done Comments Breast Cancer Screening-Mammogram 1974 Cervical Cancer Screening 1974 Colon Cancer Screening-Colonoscopy 1974 Depression Screening 1974 Hepatitis C Screening 1974 Regular Well Visit/Exam 18-64 1992 Covid-19 Vaccine ( - season) 2023 06/09/2020, 05/12/2020 Zoster Vaccine (1 of 2) 2024 DTaP/Tdap/Td Vaccine (3 - Td or Tdap) 10/20/2024 10/20/2014, 10/10/2014, 03/10/2004 Influenza Vaccine (Season Ended) 2024 01/05/2021, 12/06/2019, 12/03/2019, Additional history exists Hepatitis B Screening Completed 10/10/2014 Pneumococcal vaccine <65 Aged Out No longer eligible based on patient's age to complete this topic Insurance [employer] MEDICARE [employer] MEDICARE [employer] [facility] MEDICARE ADVANTAGE Advance Directives For more information, please contact: [phone] * Full Code (Latest Code Status on File) Date Activated Date Inactivated Comments 07/23/2023 3:39 PM 07/25/2023 6:34 PM Care Teams Snowboard Instructor Relationship Specialty Start Date End Date Matias Warren MD [address] [place] [id number] PCP - General Internal Medicine 07/20/23
--- OUTSIDE RECORDS SUMMARY | 2024-08-26 16:18 | XMS_ITS | Clinical Summary ---
Author Organization [facility] Address [address] [place] [address] Phone Care Team Providers Care Client Account Assistant Name Role Phone Matias Warren MD Primary Care Provider Allergies Active Allergy Reactions Criticality Noted Date [...] 4:44 PM CDT Height 162.6 cm (5' 4) 06/08/2018 4:44 PM CDT Body Mass Index [...] 04/17/2019 019, 06/12/2017, 02/08/2017, Additional history exists Cologuard 2019 Colonoscopy 2019 Colorectal Cancer Screening 2019 Immunochemical Fecal Occult Blood 2019 Diabetes: Nephropathy Screening 10/16/2019 10/15/2018, 02/08/2017, 01/17/2017 SARS-COV-2 Immunization ( season) 2023 06/09/2020, 05/12/2020 Zoster Immunization (1 of 2) 2024 Influenza Immunization (Season Ended) 2024 01/05/2021, 12/03/2019, 02/06/2018, Additional history exists Respiratory Syncytial Virus (RSV) Immunization (Adult) (1 - 1-dose 75+ series) 2049 TdaP Immunization Completed 10/10/2014 DTaP/Tdap/Td Immunization Discontinued 2014, 10/10/2014, 03/10/2004 Human Papillomavirus (HPV) Immunization Aged Out No longer eligible based on patient's age to complete this topic Meningococcal Immunization (ACWY) Aged Out No longer [...] Relevant to Health Maintenance Insurance MEDICARE [facility] Care Teams Client Account Assistant Relationship Specialty Start Date End Date Matias Warren MD [address] [place] [phone] PCP - General Family Medicine 07/09/23
--- OUTSIDE RECORDS SUMMARY | 2024-08-26 16:18 | XMS_ITS | Clinical Summary ---
Author Organization [facility] Address [address] [address] Phone Care Team Providers Care Law Examiner Name Role Phone Matias Warren MD Primary Care Provider [phone] Allergies Active Allergy Reactions Criticality Noted Date [...] time each day Active ergocalciferol 1.25 MG (91884 UT) capsule Take 50,000 Units by mouth [...] 4:16 PM CDT Height 162.6 cm (5' 4) 12/16/2023 4:16 PM CDT Body Mass Index [...] 8.6(A) 8.7 - 10.7 mg/dL eGFR Non-Afr [place]an 25(L) Hemoglobin A1C 8.5(A) 4.0 - 6.0 Glucose, UA 4+ mg/dL Bilirubin, UA Negative Ketones, UA Negative Urine Specific [place] 1.015 Blood, UA 3+ Randy/ul pH, UA [...] Relevant to Health Maintenance Insurance Medicare [facility] Care Teams Law Examiner Relationship Specialty Start Date End Date Matias Warren MD [address] [place] [id number] PCP - General Internal Medicine 07/24/23
--- OUTSIDE RECORDS SUMMARY | 2024-08-26 16:18 | XMS_ITS | Referral Summary ---
Author Organization [facility] Address [address] [place] [phone] Care Team Providers Care Dressmaking Teacher Name Role Phone Matias Warren MD Primary Care Provider [phone] Allergies Active Allergy Reactions Criticality Noted Date [...] drink = 0.6 oz pur e alcohol) [facility] Utilities Answer Date Recorded In the past 12 months has [employer], [email or web address], or water [employer] threatened to shut off services in your [...] often do you attend chur ch or confucianist services? 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 Gender Identity Not on file Sexual Orientation [...] Plan of Treatment Not on file Insurance [employer] MEDICARE [facility] HMO/PPO Address: [facility] [id number] [place] [address] MEDICARE [facility] MEDICARE ADVANTAGE Advance Directives For more information, please contact: [phone] * Full Code (Latest Code Status on File) Date Activated Date Inactivated Comments 07/23/2023 3:39 PM 07/25/2023 6:34 PM Care Teams Dressmaking Teacher Relationship Specialty Start Date End Date Matias Warren MD [address] [place] [id number] PCP - General Internal Medicine 07/20/23
--- OUTSIDE RECORDS SUMMARY | 2024-08-26 16:19 | XMS_ITS ---
Author Organization [facility] Address [address] [place] [phone] Care Team Providers Care Brewer Helper Name Role Phone Kelvin MEMBRENO, Andres Primary Care Provider Rudy Moses Unavailable [phone] REASON FOR VISIT NO SHOW/RESCHEDULED MULTIPLE APPTS Encounters Encounter Location Date Provider Diagnosis [facility] [address] [id number] 06/24/2023 Rudy Veloz PLAN OF TREATMENT No Information
--- OUTSIDE RECORDS SUMMARY | 2024-08-26 16:19 | XMS_ITS | Patient Health Record ---
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 confirmed Diabetic renal disease (205541289) Problem Type 2 diabetes mellitus with diabetic neuropathy, unspecified (E11.40) Active confirmed Diabetic peripheral neuropathy associated with type 2 diabetes mellitus (5027639726040) Problem 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) Active confirmed 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 (41358902601041) Problem Obesity, unspecified (E66.9) Active confirmed Obesity (705010842) Problem Vitamin D deficiency, unspecified (E55.9) Active confirmed Vitamin D deficiency (13019502) Problem Iron deficiency anemia, unspecified (D50.9) Active confirmed Iron deficiency anemia (33737688) PLAN OF TREATMENT Pending Test Test Name [...] Insured Coverage Start Date Coverage End Date [employer] [place] [employer] [address] [place], [place] [id number] Joann Tavares Self - patient is the insured [place] [address] [place] [address] [id number] Joann Tavares Self - patient is the insured [facility] [address] [address] [place] [address] [phone] [id number] Joann Tavares Self - patient is the [...]
--- OUTSIDE RECORDS SUMMARY | 2024-08-26 16:19 | XMS_ITS | Clinical Summary ---
Author Organization [facility] Address [address] [place] [address] Care Team Providers Care Light Industrial Supervisor Name Role Phone Teresita Cortez MD Primary Care Provider [phone] Source Comments [facility] [employer],non-owned Affiliates and Associated Physician Practices is amultiple site organization consisting of ambulatory clinics and hospital sitesin [place], [place], [place] and [place]. This disclosure is being madepursuant to the Care Everywhere program and may not contain all information available regarding this patient. Last updated 17.[facility] [employer] Allergies Active Allergy Reactions Criticality Noted Date [...] Weight - - Height 162.6 cm (5' 4) 12/27/2019 2:01 PM CDT Body Mass Index [...] MAMMOGRAM 1974 MEDICARE AWV 12 MONTHS 1974 HIV SCREENING 1989 HEPATITIS C SCREENING 04/24/1992 HEPATITIS B VACCINE (1 of 3 - 19+ 3-dose series) 1993 PAP SMEAR 1995 DTAP/TDAP/TD VACCINES (1 - Tdap) 03/11/2004 03/10/2004 [...] Insurance MEDICAID - OUT OF STATE MEDICARE [facility] SELF PAY NO INSURANCE Member Subscriber Plan / Payer (Ef fective for All Dates) Name:Joann Tavares Member ID:Not on file Relation to Subscriber:Not on file Name:JOANN TAVARES Subscriber ID:Not on file (Home) Address: [facility] [place] [address] [address] Payer ID:Not on file Group ID:Not on file Type:Self Pay Address: [place], [place] Care Teams Light Industrial Supervisor Relationship Specialty Start Date End Date Teresita Cortez MD [address] [place] [address] [address] [place] [phone] PCP - General 05/07/19
--- OUTSIDE RECORDS SUMMARY | 2024-08-26 16:19 | XMS_ITS | Encounter Summary ---
[facility] Organization [facility] Address [address] [place] [address] Care Team Providers Care Notcher Name Role Phone Unavailable Primary Care Provider Unavailabl e Encounter Details Date Type Department Care Team (Late st Contact Info) Description 08/24/2024 External Device Data [facility] ABSTRACTION Provider, Abstract [...]
--- OUTSIDE RECORDS SUMMARY | 2024-08-26 16:19 | XMS_ITS | Continuity of Care Document ---
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 [address], [address], [place], [place], [address] , [place]. tel:[phone] Referring Provider: Rocky Spence [address], [place], [place], [address]. tel:[phone] [facility], [address] [employer] [place], [address], [place] tel:[phone] [facility] No Information 7 Jordy Hidalgo. [address], [place], [place], [address] , [place]. tel:[phone] OFFICE/OUTPA TIENT VISIT, EST [facility], [address] [employer] [place], [address], [place] tel:[phone] [facility] DM1 (chief complaint)H TN (chief complaint)a neity1 (chief complaint)o beisty1 (chief complaint) Type 2 diabetes mellitus without complicationsEssen tial (primary) hypertensionBody mass index (BMI) 50-59.9 , adultAnxiolytic dependence Fercho- 7 Jordy Soto [address], [address], [place], [place], [address] , [place]. tel:[phone] [facility], [address], [place], [place], [address], [place] tel:[phone] [facility] No Information 7 Jordy Soto [address], [address], [place], [place], [address] , [place]. tel:[phone] OFFICE/OUTPA TIENT VISIT, [facility], [address], [place], [place], [address], [place] tel:[phone] [facility] HTN (chief complaint)s leep apnea1 (chief complaint)a nxiety1 (chief complaint)D M (chief complaint) Sleep apneaEssential (primary) hypertensionType 2 diabetes mellitus without complicationsAnxio lytic dependence 7 Jordy Soto [address], [address], [place], [place], [address] , [place]. tel:[phone] [facility], [address], [place], [place], [address], [place] tel:[phone] [facility] No Information 7 Jordy Soto [address], [address], [place], [place], [address] , [place]. tel:[phone] OFFICE/OUTPA TIENT VISIT, [facility], [address], [place], [place], [address], [place] tel:[phone] [facility] DM (chief complaint)H TN (chief complaint)a nxiety1 (chief complaint)a nemia1 (chief complaint) Type 2 diabetes mellitus without complicationsAnxio lytic dependenceEssentia l (primary) hypertensionBody mass index (BMI) 50-59.9 , adult Fe- 7 Jordy Soto [address], [address], [place], [place], [address] , [place]. tel:[phone] Referring Provider: Wilfred [address], [place], [place], [address]. tel:[phone] OFFICE/OUTPA TIENT VISIT, EST [facility], [address], [place], [place], [address], [place] tel:[phone] [facility] Medicine HTN (chief complaint)a nxiety1 (chief complaint)D M (chief complaint) Essential (primary) hypertensionType 2 diabetes mellitus without complicationsAnxio lytic dependenceBody mass index (BMI) 50-59.9 , adult Feb- 6 Jordy Hidalgo. [address], [address], [place], [place], [address] , [place]. [phone] Referring Provider: Wilfrde [address], [place], [place], [address]. tel:[phone] PREV VISIT, EST, AGE 40-64 [facility], [address], [place], [place], [address], [place] tel:[phone] [facility] PHysical (chief complaint) Encntr for general adult medical exam w/o abnormal findings 6 Jordy Hidalgo. [address], [address], [place], [place], [address] , [place]. [phone] Referring Provider: Wilfred [address], [place], [place], [address]. tel:[phone] OFFICE/OUTPA TIENT VISIT, EST [facility], [address], [place], [place], [address], [place] tel:[phone] [facility] DM (chief complaint)H TN (chief complaint)a nxiety1 (chief complaint)i silvino deficiecy (chief complaint) Iron deficiencyEssentia l (primary) hypertensionAnxiol ytic dependenceType 2 diabetes mellitus without complications 0 6 Jordy Hidalgo. [address], [place], [place], [address] , [place]. [phone] [facility], [address], [place], [place], [address], [place] tel:[phone] [facility] No Information 6 Jordy Hidalgo. [address], [place], [place], [address] , [place]. tel:[phone] OFFICE/OUTPA TIENT VISIT, [facility], [address], [place], [place], [address], [place] tel:[phone] [facility] HTN (chief complaint)D M (chief complaint)a nixety1 (chief complaint) Type 2 diabetes mellitus without complicationsEssen tial (primary) hypertensionAnxiol ytic dependence 6 Jordy Hidalgo. [address], [address], [place], [place], [address] , [place]. [phone] Referring Provider: Wilfred [address], [place], [place], [address]. tel:[phone] OFFICE/OUTPA TIENT VISIT, [facility], [address], [place], [place], [address], [place] tel:[phone] [facility] DM (chief complaint)a nxiety1 (chief complaint)H TN (chief complaint) Type 2 diabetes mellitus without complicationsAnxio lytic dependenceEssentia l (primary) hypertension 6 Jordy Hidalgo. [address], [place], [place], [address] , [place]. [phone] Referring Provider: Wilfred [address], [place], [place], [address]. tel:[phone] OFFICE/OUTPA TIENT VISIT, [facility], [address], [place], [place], [address], [place] tel:[phone] [facility] HTN (chief complaint)D M (chief complaint)a nxiety1 (chief complaint) Essential (primary) hypertensionType 2 diabetes mellitus without complicationsAnxio lytic dependence 6 Jordy Hidalgo. [address], [place], [place], [address] , [place]. tel:[phone] Referring Provider: Wilfred [address], [place], [place], [address]. tel:[phone] OFFICE/OUTPA TIENT VISIT, [facility], [address], [place], [place], [address], [place] tel:[phone] [facility] DM (chief complaint)i silvino deficiency (chief complaint)p roteinuria (chief complaint)H TN (chief complaint) Type 2 diabetes mellitus without complicationsProte inuriaIron deficiencyEssentia l (primary) hypertension 6 Jordy Hidalgo. [address], [address], [place], [place], [address] , [place]. tel:[phone] Referring Provider: Wilfred [address], [place], [place], [address]. tel:[phone] OFFICE/OUTPA TIENT VISIT, [facility], [address], [place], [place], [address], [place] tel:[phone] [facility] DM (chief complaint)a nxiety1 (chief complaint)H TN (chief complaint) Type 2 diabetes mellitus without complicationsAnxio lytic dependenceEssentia l (primary) hypertensionTachyc ardia 6 Jordy Hidalgo. [address], [address], [place], [place], [address] , [place]. [phone] Referring Provider: Wilfred [address], [place], [place], [address]. tel:[phone] OFFICE/OUTPA TIENT VISIT, [facility], [address], [place], [place], [address], [place] tel:[phone] [facility] HTN1 (chief complaint)d M (chief complaint)a nxiety1 (chief complaint) Type 2 diabetes mellitus without complicationsEssen tial (primary) hypertensionAnxiol ytic dependence 6 Jordy Hidalgo. [address], [place], [place], [address] , [place]. tel:[phone] Referring Provider: Wilfred [address], [place], [place], [address]. tel:[phone] OFFICE/OUTPA TIENT VISIT, [facility], [address], [place], [place], [address], [place] tel:[phone] [facility] HTN (chief complaint)D M (chief complaint)a nxiety1 (chief complaint) Type 2 diabetes mellitus without complicationsAnxio lytic dependenceEssentia l (primary) hypertensionEncoun ter for oth screening for malignant neoplasm of breast 6 Jordy Hidalgo. [address], [address], [place], [place], [address] , [place]. [phone] Referring Provider: Wilfred Lopez [facility] A, [place], [place], [address]. tel:[phone] OFFICE/OUTPA TIENT VISIT, [facility], [address], [place], [place], [address], [place] tel:[phone] [facility] HTN1 (chief complaint)D M1 (chief complaint)A nxiety1 (chief complaint)S ick1 (chief complaint) Type 2 diabetes mellitus without complicationsEssen tial (primary) hypertensionAcute upper respiratory infection, unspecifiedAnxioly tic dependence 5 Jordy Hidalgo. [address], [place], [place], [address] , [place]. [phone] Referring Provider: Wilfred Lopez [facility], [place], [place], [address]. tel:[phone] OFFICE/OUTPA TIENT VISIT, [facility], [address], [place], [place], [address], [place] tel:[phone] [facility] HTN1 (chief complaint)D M1 (chief complaint)a nxiety1 (chief complaint)n oncompliant (chief complaint)c hest pain1 (chief complaint) Essential (primary) hypertensionType 2 diabetes mellitus without complications 5 Jordy Soto [address], [place], [place], [address] , [place]. tel:[phone] Referring Provider: Wilfred [address], [place], [place], [address]. tel:[phone] OFFICE/OUTPA TIENT VISIT, [facility], [address], [place], [place], [address], tel:[phone] [facility] DM1 (chief complaint)A nxiety1 (chief complaint)H TN1 (chief complaint)s leep apnea1 (chief complaint) Dietary surveillance and counselingType 2 diabetes mellitus w/o complicationEssent ial (primary) hypertensionOther sleep apnea 5 Jordy Hidalgo. [address], [place], [place], [address] , [place]. tel:[phone] Referring Provider: [address], [place], [place], [address]. tel:[phone] OFFICE/OUTPA TIENT VISIT, [facility], [address] [place], [address], [place] tel:[phone] [facility] DM (chief complaint)H TN (chief complaint)a nxiety (chief complaint) Dietary surveillance and counselingBrittle diabetesUnspecifie d essential hypertensionCurren t use of insulin 5 Jordy Soto [address], [place], [place], [address] , [place]. tel:[phone] Referring Provider: Wil[address] Lopez [address], [place], [place], [address]. tel:[phone] OFFICE/OUTPA TIENT VISIT, [facility], [address] [place], [address], [place] tel:[phone] [facility] HTN (chief complaint)D M (chief complaint)s leep apnea (chief complaint) Dietary surveillance and counselingUnspecif ied essential hypertensionUnspec ified sleep apneaBrittle diabetesBMI 50.0 to 59.9 5 Jordy Soto [address], [address], [place], [place], [address] , [place]. tel:[phone] Referring Provider: Rocky Spence, [address], [place], [place], [address]. tel:[phone] OFFICE/OUTPA TIENT VISIT, [facility], [address], [place], [place], [address], [place] tel:[phone] [facility] fatty liver (chief complaint)D M (chief complaint)H TN (chief complaint) Dietary surveillance and counselingUnspecif ied essential hypertensionOther specified disorders of liverBrittle diabetes 5 Jordy Hidalgo. [address], [place], [place], [address] , [place]. tel:[phone] Referring Provider: Rocky Spence, [address], [place], [place], [address]. tel:[phone] [facility], [address], [place], [place], [address], [place] tel:[phone] [facility] No Information 5 Jordy Hidalgo. [address], [address], [place], [place], [address] , [place]. tel:[phone] OFFICE/OUTPA TIENT VISIT, [facility], [address], [place], [place], [address], [place] tel:[phone] [facility] Anxiety (chief complaint)D M (chief complaint) Dietary surveillance and counselingBrittle diabetesBlood pressure elevated 5 Jordy Hidalgo. [address], [place], [place], [address] , [place]. tel:[phone] Referring Provider: Rocky Spence, [address], [place], [place], [address]. tel:[phone] OFFICE/OUTPA TIENT VISIT, [facility], [address], [place], [place], [address], [place] tel:[phone] [facility] sleep apnea (chief complaint)A nxeity (chief complaint)D M (chief complaint) Dietary surveillance and counselingUnspecif ied sleep apneaBrittle diabetesUnspecifie d disorder of liver 5 Jordy Hidalgo. [address], [place], [place], [address] , [place]. tel:[phone] Referring Provider: Wilfred [address], [place], [place], [address]. tel:[phone] OFFICE/OUTPA TIENT VISIT, [facility], [address], [place], [place], [address], [place] tel:[phone] [facility] DM (chief complaint)s leep apnea (chief complaint)a nxiety (chief complaint) Dietary surveillance and counselingDiabetes Mellitus Type 2, UncomplicatedSleep ApneaUnspecified disorder of liver 5 Jordy Hidalgo. [address], [place], [place], [address] , [place]. [phone] Referring Provider: Wilfred [address], [place], [place], [address]. tel:[phone] OFFICE/OUTPA TIENT VISIT, [facility], [address], [place], [place], [address], [place] tel:[phone] [facility] DM (chief complaint)H TN (chief complaint)s leep apnea (chief complaint)L FT (chief complaint) Dietary surveillance and counselingDiabetes Mellitus Type 2, UncomplicatedHyper tension, UnspecifiedUnspeci fied disorder of liverSleep Apnea 5 Jordy Hidalgo. [address], [address], [place], [place], [address] , [place]. [phone] Referring Provider: Wilfred [address], [place], [place], [address]. tel:[phone] OFFICE/OUTPA TIENT VISIT, [facility], [address], [place], [place], [address], [place] tel:[phone] [facility] anxiety (chief complaint)D M (chief complaint) Dietary surveillance and counselingDiabetes Mellitus Type 2, UncomplicatedSleep ApneaSedative, hypnotic or anxiolytic dependence, unspecified Fe 5 Jordy Hidalgo. [address], [place], [place], [address] , [place]. [phone] Referring Provider: Rocky Spence, [address], [place], [place], [address]. tel:[phone] OFFICE/OUTPA TIENT VISIT, [facility], [address], [place], [place], [address], [place] [phone] [facility] DM (chief complaint)a nxiety (chief complaint)H TN (chief complaint)s leep apnea (chief complaint) Dietary surveillance and counselingDiabetes Mellitus, Adult Onset, UncontrolledHypert ension, UnspecifiedSleep Apnea 5 Jordy Hidalgo. [address], [address], [place], [place], [address] , [place]. tel:[phone] Referring Provider: Wilfred [address], [place], [place], [address]. tel:[phone] OFFICE/OUTPA TIENT VISIT, [facility], [address], [place], [place], [address], [place] tel:[phone] [facility] DM (chief complaint)s leep apnea (chief complaint)a nxiety (chief complaint) Dietary surveillance and counselingDiabetes Mellitus Type 2, UncomplicatedSleep ApneaCentral hearing lossHypertension, Unspecified 4 Jordy Hidalgo. [address], [place], [place], [address] , [place]. [phone] Referring Provider: Wilfred [address], [place], [place], [address]. tel:[phone] OFFICE/OUTPA TIENT VISIT, [facility], [address], [place], [place], [address], [place] tel:[phone] [facility] DM (chief complaint)l ow iron (chief complaint)a nxiety (chief complaint) AnemiaHypertension , UnspecifiedDiabete s Mellitus, Adult Onset, UncontrolledDietar y surveillance and counseling 4 Jordy Hidalgo. [address], [place], [place], [address] , . tel:[phone] Referring Provider: Rocky Spence, [address], [place], [place], [address]. tel:[phone] OFFICE/OUTPA TIENT VISIT, [facility], [address], [place], [place], [address], [place] tel:[phone] [facility] finger infection (chief complaint)a nxiety (chief complaint)D M (chief complaint) Dietary surveillance and counselingDiabetes Mellitus, Adult Onset, UncontrolledOnychi a and paronychia of fingerSleep ApneaHypertension, Unspecified 4 Jordy Hidalgo. [address], [place], [place], [address] , . tel:[phone] Referring Provider: Wilfred [address], [place], [place], [address]. tel:[phone] OFFICE/OUTPA TIENT VISIT, [facility], [address], [address], [place] tel:[phone] [facility] headache (chief complaint)a nxiety (chief complaint)s leep apnea (chief complaint)t innitus (chief complaint) Dietary surveillance and counselingHeadache Sleep ApneaCentral hearing loss 4 Jordy Hidalgo. [address], [place], [place], [address] , [place]. tel:[phone] Referring Provider: Wilfred [address], [place], [place], [address]. tel:[phone] OFFICE/OUTPA TIENT VISIT, [facility], [address], [place], [place], [address], [place] tel:[phone] [facility] DM (chief complaint)a nxiety (chief complaint)h and numbness (chief complaint) Dietary surveillance and counselingDiabetes Mellitus Type 2, UncomplicatedDistu rbance of skin sensationCervicalg ia 4 Jordy Hidalgo. [address], [place], [place], [address] , [place]. tel:[phone] Referring Provider: Wilfred [address], [place], [place], [address]. tel:[phone] OFFICE/OUTPA TIENT VISIT, [facility], [address], [place], [place], [address], [place] tel:[phone] [facility] DM (chief complaint)H TN (chief complaint)a nxiety (chief complaint)d izziness (chief complaint)s leep apnea (chief complaint) Diabetes Mellitus Type 2, UncomplicatedVerti goHypertension, UnspecifiedSleep Apnea 4 Jordy Hidalgo. [address], [place], [place], [address] , . tel:[phone] Referring Provider: Wilfred [address], [place], [place], [address]. tel:[phone] OFFICE/OUTPA TIENT VISIT, [facility], [address] [place], [address], [place] tel:[phone] [facility] DM (chief complaint)a nxiety (chief complaint)H TN (chief complaint) Dietary surveillance and counselingDiabetes Mellitus, Adult Onset, UncontrolledHypert ension, Unspecified 4 Jordy Hidalgo. [address], [place], [place], [address] , [place]. tel:[phone] Referring Provider: Wilfred [address], [place], [place], [address]. tel:[phone] OFFICE/OUTPA TIENT VISIT, [facility], [address], [place], [place], [address], [place] tel:[phone] [facility] Tinnitus (chief complaint)a nxiety (chief complaint)D M (chief complaint) Tinnitus, unspecifiedVertigo Diabetes Mellitus Type 2, UncomplicatedDieta ry surveillance and counseling 4 Jordy Hidalgo. [address], [place], [place], [address] , . tel:[phone] Referring Provider: Wilfred [address], [place], [place], [address]. tel:[phone] OFFICE/OUTPA TIENT VISIT, [facility], [address], [place], [place], [address], tel:[phone] [facility] DM (chief complaint)H TN (chief complaint)a nxiety (chief complaint) Dietary surveillance and counselingDiabetes Mellitus Type 2, UncomplicatedHyper tension, Unspecified 4 Jordy Hidalgo. [address], [place], [place], [address] , [place]. tel:[phone] Referring Provider: [facility], [place], [place], [address]. tel:[phone] OFFICE/OUTPA TIENT VISIT, [facility], [address], [place], [place], [address], [place] tel:[phone] [facility] shingle (chief complaint)A nxiety (chief complaint)S inus (chief complaint)D M (chief complaint) Dietary surveillance and counselingHerpes zoster without mention of complicationSinusi tis, AcuteTinnitus, unspecifiedDiabete s Mellitus, Adult Onset, Uncontrolled 4 Jordy Hidalgo. [address], [place], [place], [address] , [place]. tel:[phone] Referring Provider: Wilfred [address], [place], [place], [address]. tel:[phone] OFFICE/OUTPA TIENT VISIT, [facility], [address], [place], [place], [address], [place] tel:[phone] [facility] anxiety (chief complaint)e ar pain (chief complaint)b ack pain (chief complaint) Dietary surveillance and counselingDietary surveillance and counselingTinnitus , unspecifiedLumbago Otalgia, unspecified 4 Jordy Hidalgo. [address], [place], [place], [address] , [place]. tel:[phone] Referring Provider: Wilfred [address], [place], [place], [address]. tel:[phone] OFFICE/OUTPA TIENT VISIT, [facility], [address], [place], [place], [address], [place] tel:[phone] [facility] HTN (chief complaint)D M (chief complaint)a nxiety (chief complaint) Dietary surveillance and counselingHyperten sarah, UnspecifiedDiabete s Mellitus, Adult Onset, Uncontrolled 4 Jordy Hidalgo. [address], [place], [place], [address] , [place]. [phone] Referring Provider: Wilfred [address], [place], [place], [address]. tel:[phone] OFFICE/OUTPA TIENT VISIT, [facility], [address], [place], [place], [address], [place] tel:[phone] [facility] DM (chief complaint)a nxiety (chief complaint) Dietary surveillance and counselingHyperten sarah, UnspecifiedDiabete s Mellitus, Adult Onset, Uncontrolled 4 Jordy Hidalgo. [address], [place], [place], [address] , [place]. tel:[phone] Referring Provider: Wilfred [address], [place], [place], [address]. tel:[phone] OFFICE/OUTPA TIENT VISIT, [facility], [address], [place], [place], [address], [place] tel:[phone] [facility] anxiety (chief complaint)U RI (chief complaint)D M (chief complaint) Dietary surveillance and counselingDiabetes Mellitus, Adult Onset, UncontrolledAcute upper respiratory infections of other multiple sites 3 Jordy Hidalgo. [address], [place], [place], [address] , [place]. tel:[phone] Referring Provider: Rocky Spence [address], [place], [place], [address]. tel:[phone] OFFICE/OUTPA TIENT VISIT, [facility], [address], [place], [place], [address], [place] tel:[phone] [facility] HTN (chief complaint)D M (chief complaint)a nxiety (chief complaint) Dietary surveillance and counselingHyperten sarah, UnspecifiedDiabete s Mellitus, Adult Onset, Uncontrolled 3 Jordy Hidalgo. [address], [address], [place], [place], [address] , [place]. tel:[phone] OFFICE/OUTPA TIENT VISIT, [facility], [address], [place], [place], [address], [place] tel:[phone] [facility] HTN (chief complaint)a nxiety (chief complaint)f atigue (chief complaint) Dietary surveillance and counselingLumbagoH ypertension, UnspecifiedSleep Apnea 3 Jordy Hidalgo. [address], [address], [place], [place], [address] , [place]. tel:[phone] Referring Provider: Wilfred Lopez [address], [place], [place], [address]. tel:[phone] OFFICE/OUTPA TIENT VISIT, [facility], [address], [place], [place], [address], [place] tel:[phone] [facility] HTN (chief complaint)D M (chief complaint)a nxiety (chief complaint) Dietary surveillance and counselingLumbagoH ypertension, UnspecifiedDiabete s Mellitus Type 2, Uncomplicated 3 Jordy Hidalgo. [address], [address], [place], [place], [address] , [place]. tel:[phone] Referring Provider: Wilfred [address], [place], [place], [address]. tel:[phone] OFFICE/OUTPA TIENT VISIT, [facility], [address], [place], [place], [address], [place] tel:[phone] [facility] anemia (chief complaint)D M (chief complaint)a nxiety (chief complaint) AnemiaHypertension , UnspecifiedDiabete s Mellitus Type 2, UncomplicatedDieta ry surveillance and counseling 3 Jordy Hidalgo. [address], [address], [place], [place], [address] , [place]. [phone] Referring Provider: Rocky Spence, [address], [place], [place], [address]. tel:[phone] OFFICE/OUTPA TIENT VISIT, [facility], [address], [place], [place], [address], [place] tel:[phone] [facility] anemia (chief complaint)D M (chief complaint)H TN (chief complaint) AnemiaDietary surveillance and counselingDiabetes Mellitus, Adult Onset, UncontrolledHypert ension, Unspecified 3 Jordy Hidalgo. [address], [address], [place], [place], [address] , [place]. tel:[phone] Referring Provider: Rocky Spence [address], [place], [place], [address]. tel:[phone] OFFICE/OUTPA TIENT VISIT, [facility], [address], [place], [place], [address], [place] tel:[phone] [facility] anxiety (chief complaint)D M (chief complaint)b ronchitis (chief complaint) Dietary surveillance and counselingDiabetes Mellitus, Adult Onset, UncontrolledHypert ension, UnspecifiedBronchi tis, Acute 3 Jordy Soto [address], [address], [place], [place], [address] , [place]. [phone] Referring Provider: Rocky Spence [address], [place], [place], [address]. tel:[phone] OFFICE/OUTPA TIENT VISIT, [facility], [address], [place], [place], [address], [place] tel:[phone] [facility] HTN (chief complaint)a nxiety (chief complaint)s ick (chief complaint) Acute upper respiratory infections of other multiple sitesHypertension, UnspecifiedDiabete s Mellitus, Adult Onset, Uncontrolled 3 Jordy Hidalgo. [address], [place], [place], [address] , [place]. [phone] Referring Provider: Rocky Spence, [address], [place], [place], [address]. tel:[phone] OFFICE/OUTPA TIENT VISIT, [facility], [address], [place], [place], [address], [place] tel:[phone] [facility] HTN (chief complaint)D M (chief complaint)a nxiety (chief complaint) Dietary surveillance and counselingHyperten sarah, UnspecifiedDiabete s Mellitus, Adult Onset, Uncontrolled Jun- 3 Jordy Hidalgo. [address], [place], [place], [address] , [place]. [phone] Referring Provider: Wilfred [address], [place], [place], [address]. tel:[phone] OFFICE/OUTPA TIENT VISIT, [facility], [address], [place], [place], [address], [place] tel:[phone] [facility] HTN (chief complaint)V ision chanage (chief complaint)A nemia (chief complaint) Dietary surveillance and counselingAnemiaDi abetes Mellitus, Adult Onset, UncontrolledHypert ension, UnspecifiedCarotid Artery Disease, Unilateral 3 Jordy Hidalgo. [address], [place], [place], [address] , [place]. [phone] Referring Provider: Wilfred [address], [place], [place], [address]. tel:[phone] OFFICE/OUTPA TIENT VISIT, [facility], [address], [place], [place], [address], [place] tel:[phone] [facility] cough (chief complaint)H TN (chief complaint) Dietary surveillance and counselingAcute upper respiratory infections of other multiple sitesHypertension, UnspecifiedDiabete s Mellitus, Adult Onset, Uncontrolled 3 Jordy Hidalgo. [address], [place], [place], [address] , [place]. [phone] Referring Provider: Wilfred Lopez [address], [place], [place], [address]. tel:[phone] OFFICE/OUTPA TIENT VISIT, [facility], [address], [place], [place], [address], [place] tel:[phone] [facility] anxiety (chief complaint)H TN (chief complaint)D M (chief complaint) Dietary surveillance and counselingHyperten sarah, UnspecifiedDiabete s Mellitus, Adult Onset, UncontrolledLumbag o 3 Jordy Hidalgo. [address], [place], [place], [address] , [place]. [phone] Referring Provider: Wil[address], [place], [place], [address]. tel:[phone] OFFICE/OUTPA TIENT VISIT, [facility], [address], [place], [place], [address], [place] tel:[phone] [facility] DM/HTN (chief complaint)a nxiety (chief complaint)a nemia (chief complaint) Dietary surveillance and counselingDiabetes Mellitus Type 2, UncomplicatedAnemi aLumbagoHypertensi on, Unspecified 2 Jordy Hidalgo. [address], [place], [place], [address] , [place]. tel:[phone] Referring Provider: Wilfred [address], [place], [place], [address]. tel:[phone] OFFICE/OUTPA TIENT VISIT, [facility], [address], [place], [place], [address], tel:[phone] [facility] back pain (chief complaint)a nxiety (chief complaint)D M (chief complaint) Dietary surveillance and counselingLumbagoD iabetes Mellitus Type 2, UncomplicatedHyper tension, Unspecified 2 Jordy Hidalgo. [address] [facility] [address], [place], [place], [address] , . tel:[phone] Referring Provider: Wilfred Lopez [facility] [address], [place], [place], [address]. tel:[phone] OFFICE/OUTPA TIENT VISIT, [facility], [address], [place], [place], [address], tel:[phone] [facility] anxiety (chief complaint)b ack pain (chief complaint)H TN (chief complaint)a nemia (chief complaint) Dietary surveillance and counselingLumbagoA nemiaHypertension, Unspecified 2 Jordy Hidalgo. [address], [place], [place], [address] , [place]. tel:[phone] Referring Provider: Wilfred Lopez [facility], [place], [place], [address]. tel:[phone] Family History Family Member Type Diagnosis Age [...] ordered Referral Referred To: Tosha Kilpatrick [address] [facility] [address] [place], [phone] Ordered: Referrals: Tosha Kilpatrick. Evaluate and treat [...] crying spells sleep apnea1 Pt has sleep top steep tender ea Pt uses CPAP nightly. Pt still feels fatigue throughout the day HTN Pt has persisten tly high BP despite taking nrovasc, losartan.hctz and clonidine. Her BP at home is also range between 150-180. Pt denies any chest pain or headache anemia1 Pt is noncomplia nt with EGD and colonoscopy. Pt denies any GI blood loss. Pt has not done lab yet. Pt denies any syncope or dizziness DM Pt takes 40 unit s of [...] homicdial thought Pt denies any crying spells anxiety1 Pt has chronic a nxiety. pt denies any depressin or any suicidal thouight. Pt denies any crying spells DM Pt takes lantus 35 units and also humalog Her BG is around 250s. P denies any polyuria, polydispia. pt is not very good with diet. Pt also has not doen lab yet HTN Pt has HTN. Pt t akes losartan norvasc and clonidine and her BP remains elevated Pt told her BP is around 150/80 at home. Pt denies any chest pain or headache PHysical Pt needs annual physical. Pt has [...] xanax. Pt denies any seizures HTN Pt started metop rolol 25 mg [...] pt denies any chest pain or headache HTN1 Pt has HTN. Pt t akes [...] or headache sleep apnea1 Pt has sleep top steep tender ea. Pt has been using CPAP nightly [...] chest pain or headache DM Pt takes amaryl and humalog/ Pt states that her BG is around 200. Pt states that 15 units humalog is doing better. Pt denies any numbness. Pt denies any hypoglycemia or any polyura, polydipsia HTN Pt has HTN. Pt t akes lisinoril but her BP is still mildly high. Pt denies any chest pain or hedache sleep apnea Relevant history : a BMI [...] Mental Status Date Cognitive Assessment Orientation - [place] ed to time, place, person, situation.
--- OUTSIDE RECORDS SUMMARY | 2024-08-26 16:19 | XMS_ITS | CONTINUITY OF CARE DOCUMENT ---
Author Name cecilia brooks Address Unknown Organization [facility] Address [address] [facility] [address] [place] [address] Phone [phone] Care Team Providers Care Education Counselor Name Role Phone Nicole MEMBRENO, Hal Unavailable [phone] Nicole MEMBRENO, Hal Unavailable MAXX MEMBRENO, DR SANTOS Unavailable PROBLEMS Condition Status Date Provider Notes Hypoalbuminemia active Hal Rivera MD Venous insufficiency active Hal [place] Renal atrophy, left active Hal Rivera MD HTN WHITE COAT;LABS OK 2010 completed 2009 - Primo Hanks NP UPPER RESPIRATORY INFECTION, ACUTE completed - Primo Hanks NP Hypertriglyceridemia active Leyla Ventimiglia TITLE LAWYER VASCA[A NOT COVRED Chronic back pain active Leyla Silverio timiglia [employer]ITLE LAWYER Pulmonary hypertension active Hal Rivera MD Diastolic [...] NUCLEAR completed 201 - Primo Hanks NP TUBAL LIGATION STERILIZATION STATUS completed - Primo Hanks NP Hyperlipidemia;with high crp and low lpa active Leyla Ventimiglia TITLE LAWYER DID NOT GIOVANNA STATIN ANEMIA, IRON DEFICIENCY active Primo coe NP DIZZINESS;WILL BROWNE completed - Hal Rivera MD DYSPNEA ON EXERTION completed - Hal Rivera MD DIABETES MELLITUS active Hal Rivera MD OBESITY active Primo Hanks NP ENCOUNTERS Date Type Provider Location Encounter Diag nosis 3 - 3 In-person encounter Office Visit Hal Rievra MD [place] [facility] [facility] Hyperlipidemia;with high crp and low lpaHypertriglyceridemiaChronic back pain 1 - 1 In-person encounter Office Visit Hal Rivera MD [facility] Renal disease, chronic, mild;neg us and renal angioCAD;NEG CAROTIDElevated LFT'sDiastolic CHFPulmonary hypertension 8 - 8 In-person encounter Office Visit Hal Rivera MD [facility] 9 - 1 In-person encounter Office Visit Eyad Miramontes MD [facility] 0 - 0 In-person encounter Office Visit Hal Rivera MD [facility] ScreeningRenal disease, chronic, mild;neg us and renal angiocovid ;HAD VACCINE 1 - 1 In-person encounter Office Visit Hal Rivera MD [facility] DYSPNEA ON EXERTIONDIZZINESS;WILL WUAnasarcaRenal disease, chronic, mild;neg us and renal angioMicroalbuminuriaFolate-defici encyB12 deficiency 6 - 7 In-person encounter Office Visit Hal Rivera MD [facility] Office HTN WHITE COAT;LABS [place] 2010OBESITYANEMIA, IRON DEFICIENCYTUBAL LIGATION STERILIZATION STATUSANGINA PECTORIS;WILL NUCLEARSLEEP APNEAANXIETY DISORDERUPPER RESPIRATORY INFECTION, ACUTEHypertension;neg duplexVitamin D deficiency 3 - 9 In-person encounter Office Visit [facility] Office 4 - 0 In-person encounter Office Visit [facility] Office 5 - 9 In-person encounter Office Visit [facility] Office 7 - 3 In-person encounter Office Visit [facility] Office 4 - 4 In-person encounter Office Visit Hal Rivera MD [place] OBESITYDIABETES MELLITUSDYSPNEA ON EXERTIONANEMIA, IRON DEFICIENCYHyperlipidemia;with high crp and low lpaSLEEP APNEA VITAL SIGNS Date Observation Value Provider Body Mass Index (Ratio) 54.20 kg/m2 Luli Rivera MD respiratory rate E&M 16 /min Leyla Ventimiglia TITLE LAWYER blood pressure, diastolic 80 mm[Hg] Dc ryan [place] blood pressure, systolic 168 mm[Hg] Gaby dubois [place] oxygen saturation, oximetry 96 % [facility] pulse rate 85 /min [facility] blood pressure, cuff size regular Dc ryan [place] weight E&M 315.8 [lb_av] Dcryan Cohn height E&M 64 [in_i] [facility] Body Mass Index (Ratio) 54.92 kg/m2 [...] er height E&M 64 [in_i] Gris Swartze [facility] Body Mass Index (Ratio) 54.41 kg/m2 Luli [...] injector subcutaneously once a week Leyla Ventimiglia TITLE LAWYER torsemide 10 mg tablet active Leyla Ventimiglia TITLE LAWYER torsemide 20 mg tablet active Leyla Ventimiglia TITLE LAWYER Zetia 10 mg tablet active TAKE 1 TABLET BY MOUTH EVERY DAY Leyla Ventimiglia TITLE LAWYER Soaanz 40 mg tablet active 1 tablet [...] by mouth twice a day - [facility] Nexlizet 180-10 mg tablet completed Take 1 tablet by mouth once a day - [facility]ylaharleen [facility] DAMICOP Kerendia 20 mg tablet completed [...] mouth once a day - Leyla Sarina [facility] aspirin 81 mg tablet,chewable active Take 1 tablet by mouth once a day Hal Rivera MD cyanocobalamin (vitamin B-12) 1,000 mcg capsule active TAKE 1 CAPSULE BY MOUTH EVERY DAY [facility] ergocalciferol (vitamin D2) 1,250 mcg (50,000 unit) capsule active Take 1 capsule by mouth once a week [facility] torsemide 40 mg tablet completed every [...] TAKE 1 TABLET BY MOUTH ONCE DAILY [facility] Ozempic 0.25 mg or 0.5 mg(2 [...] history of marijuana use no Leyla Ventimiglia [facility] drug use no Leyla Ventimig desiree [facility] alcohol use no Leyla Ventimig desiree [facility] smoking status Former smoker Leyla Venti miglia [facility] smoking status Former smoker Montserrattoño [...] munoz smoking status former smoker Gris Harden [facility] physical exercise, frequency, days per week no [...] Policy type / Coverage type Moreno red democrat ID [facility] [id number] ADVANCE DIRECTIVES Name Date DISCUSSED - NO DECISION MADE TREATMENT PLAN Date Name Performer [id number],C,s core 54, neg stres in 05 and nuc in 11 Hal Rivera MD [id number],C,34 Hal sullivan MD [id number],S, 9 .4 Hal Rivera MD [id number],S, Hal lundberg MD [id number],S, 3 70 Hal Rivera MD [id number],B, Hal lundberg MD [id number],B, Hal lundberg MD [id number],C,N EEDS COLONS S he is anemic and has a hx of iron deficiency. Her anemia is microcytic and I suspect that she is iron deficient again given her recent vegetarian diet. I will check an iron panel and she will take PO iron for now as well as vitamin B12. She may need IV iron infusions as well. Hal Rivera MD [id number],S,n eg echo, neg aaa n eg pro, heg holter, neg brai ct n eg stres 05, neg carotdi duples n eg nuc 11 Hal Rivera MD [id number],B,3 6 2 5 Hal Rivera MD [id number],S, H er updated medication list for this [...] rior BP: 169/87 (11/07/2022) Hal Rivera MD [id number],S, Hal lundberg MD [id number],S, C ontinue CPAP use. Hal Rivera MD [id number],S, Hal Serot toño MEMBRENO [id number],S, Hal Serot a [id number],S,370 Hal luis MD [id number],S,some day will need col Hal Rivera MD [id number],S,9.4 Hal luis MD [id number],S,25 Hal sullivan MD [id number],B, n m pro Hal Rivera MD [id number],S, n m pro Hal Nicole MEMBRENO [id number],S,n eg pro, heg holter, neg brai ct n eg stres 05, neg carotdi duples n eg nuc 11 Hal Rivera MD [id number],C,nm pro Hal Rivera MD [id number],C,neg stres 05, neg carotdi duples Hal Rivera MD [id number],C,Continue CPAP use. Primo Duboiscarolin PORCELAIN FINISHER [id number],C,T he patient has severe vitamin D deficiency. I will start vitamin D 50,000 units per week. Primo Roncarolin PORCELAIN FINISHER [id number],C,S he is anemic and has a hx of iron deficiency. Her anemia is microcytic and I suspect that she is iron deficient again given her recent vegetarian diet. I will check an iron panel and she will take PO iron for now as well as vitamin B12. She may need IV iron infusions as well. Primo Hanks PORCELAIN FINISHER [id number],C,N ot well controlled. She did not tolerate Metformin in the past due to GI issues. I will add Jardiance 25mg qday as noted above and I will also add Ozempic. She will hopefully be able to decrease and eventually with further medication adjustment, come off insulin entirely. Primo Hanks PORCELAIN FINISHER [id number],C,L ipids are significantly elevated. I will add Rosuvastatin 20mg qday and Ezetimibe 10mg qday. Her lipids will also see improvement with better glycemic control. Primo Hanks PORCELAIN FINISHER [id number],C,B lood pressure is elevated. I will add Carvedilol 12.5mg BID. I will continue Amlodipine and Irbesartan without change. Diuresis will also improve her blood pressure with Jardiance and Kerendia. I will stop Clonidine as it is short acting and causes rebound hypertension. She will be better served with longer acting medications that are taken routinely. Primo Hanks PORCELAIN FINISHER [id number],C,T he patient has generalized anasarca and significant [...] qday and Kerendia 10m qday. Primo Hanks PORCELAIN FINISHER Cardiology:patient h as chronic back that limits her ability to walk more than 50 feet at a time. She has now purchased a [employer]ter d/t these mobility issues H ave recommended PT for back pain along with gait and balance training [facility], [facility] Cardiology:continue with yelitza sarah stockings [facility] Cardiology:Last Hgb A1C 8% in [...] 1 tablet by mouth once a day [facility] Cardiology:The patie nt is using CPAP on a regular basis. The patient has been benefiting from therapy and should continue use. [facility] Cardiology:Remains o n Jardiance A ppears [...] tablet by mouth once a day [facility] Cardiology:LDL 112 p atient does [...] Take 1 tablet by mouth every day [facility], [facility] Cardiology:BP 168/80 above goal, reports [...] 1 tablet by mouth once a day [facility], [facility] Cardiology:on iron and last hgb was 8.6 [facility], [facility] Cardiology:on replacement therap y [facility], [facility] :neg hep panel Hal Rivera [...] Rivera MD Cardiology Hal Rivera MD Cardiology Hla Rivera MD Cardiology Hal Rivera MD Cardiology:9.4 [...] Cardiology: C ontinue CPAP use. Angelajose Lopezaren PORCELAIN FINISHER Cardiology:CRP 6.3 H er updated medication list for this problem includes: Ezetimibe 10 Mg Tablet (Ezetimibe) ..... Take 1 tablet by mouth once a day Rosuvastatin 20 Mg Tablet (Rosuvastatin) ..... Take 1 tablet by mouth once a day Angela Johnluri PORCELAIN FINISHER Cardiology: N ARTI LESTERInes S he is anemic and has a hx of iron deficiency. Her anemia is microcytic and I suspect that she is iron deficient again given her recent vegetarian diet. she will take PO iron for now as well as vitamin B12. She may need IV iron infusions as well. planning to consult with geospatial information technologist [facility] Gwenri PORCELAIN FINISHER Cardiology: 9 .4 N ot controlled well. Was on ozempic, which controlled her sugars well per pt. s topped due to impaired renal function e ncoraged to resume Angela Johnluri PORCELAIN FINISHER Cardiology: 3 70 [facility] Cardiology: H er updated medication list for this problem includes: Ezetimibe 10 Mg Tablet (Ezetimibe) ..... Take 1 tablet by mouth once a day Rosuvastatin 20 Mg Tablet (Rosuvastatin) ..... Take 1 tablet by mouth once a day Angela Nalluri PORCELAIN FINISHER Cardiology:swelling improved with toresemide, still some present. Reports mild pain. V enous duplex shows severe venous insufficiency bilaterally r ecommeded to wear compression stockings and ambulate more [facility] Johnluri PORCELAIN FINISHER Cardiology: s core 54, neg stres in 05 and nuc in 11 [facility]EL[facility] FINISHER Cardiology:Renal US showed Small left kidney without evidence of nephrolithiasis, hydronephrosis, or solid renal mass. R enal duplex: no renal artery stenosis bilaterally E GFR 34, cr 1.8 C T vs angiogram CO2, to avoid/raduce dye. Explained risks and benefits. p atient would like to proceed with renal angiogram. with CO2 Angela Nalluri PORCELAIN FINISHER Cardiology: g fr 34 Angelajose Lopezluri PORCELAIN FINISHER :score 54, neg stres in 05 and [...] medications that are taken routinely. Primo Hanks PORCELAIN FINISHER Cardiology:The patie nt has generalized anasarca and [...] One tab. daily Orders: C omplete Echo (CPT-75040) H olter Monitor 24 Hr (CPT-37385) S pirometry (CPT-89898) S tress Test - Adenosine (00498) Hal Rivera MD follow up: O rders: C omplete Echo (CPT-74045) H olter Monitor 24 Hr (CPT-53750) S pirometry (CPT-76623) S tress Test - Adenosine (17572) Hal Rivera MD follow up: H er updated medication list for this problem includes: Aspirin 81 Mg Tabs (Aspirin) ..... One tab. daily Altace 5 Mg Caps (Ramipril) ..... One tab. daily Orders: Complete Echo (CPT-48360) H olter Monitor 24 Hr (CPT-53851) S pirometry (CPT-79396) S tress Test - Adenosine (06989) Hal Rivera MD follow up: H er updated medication list for this problem includes: Aspirin 81 Mg Tabs (Aspirin) ..... One tab. daily Altace 5 Mg Caps (Ramipril) ..... One tab. daily Orders: C omplete Echo (CPT-53096) H olter Monitor 24 Hr (CPT-45598) S pirometry (CPT-78354) S tress Test - Adenosine (17697) Hal Rivera MD follow up: H er updated medication list for this problem includes: Aspirin 81 Mg Tabs (Aspirin) ..... One tab. daily Pravachol 40 Mg Tabs (Pravastatin sodium) ..... One tab. daily Altace 5 Mg Caps (Ramipril) ..... One tab. daily Orders: C omplete Echo (CPT-86098) H olter Monitor 24 Hr (CPT-33285) S pirometry (CPT-70706) S tress Test - Adenosine (99672) Hal Rivera MD follow up: H er updated medication list for this problem includes: Aspirin 81 Mg Tabs (Aspirin) ..... One tab. daily Orders: C omplete Echo (CPT-56374) H olter Monitor 24 Hr (CPT-38333) S pirometry (CPT-29366) S tress Test - Adenosine (24967) Hal Rivera MD follow up: O rders: C omplete Echo (CPT-01693) H olter Monitor 24 Hr (CPT-72415) S pirometry (CPT-58771) S tress Test - Adenosine (88515) Hal Rivera MD follow up: O rders: C omplete Echo (CPT-10356) H olter Monitor 24 Hr (CPT-38809) S pirometry (CPT-58530) S tress Test - Adenosine (34424) Hal Rivera MD follow up Hal Rivera [...]
--- OUTSIDE RECORDS SUMMARY | 2024-08-26 16:19 | XMS_ITS ---
Author Organization [facility] Address [address] [place] [id number] Care Team Providers Care Administrative Secretary Name Role Phone Kelvin MEMBRENO, Andres Primary Care Provider Rudy Moses Unavailable [phone] ALLERGIES Allergen (clinical drug ingredient) Drug/Non Drug Allergy documented on EMR Reaction Allergy Type Onset Date Status morphine Morphine Sulfate Unknown Drug Allergy Active Floxin Otic Unknown Drug Allergy Activ e meperidine Demerol Unknown Drug Allergy Active ciprofloxacin Cipro Unknown Drug Allergy Act reynaldo cephalexin Cephalexin Unknown Drug Allergy Activ e REASON FOR VISIT AMMON, DM Type II [...] for 30 day(s) Unknown Vitamin D (Ergocalciferol) 79732 UNIT 1 capsule Orally Once a week [...] smoker Encounters Encounter Location Date Provider Diagnosis [facility] [id number] 06/23/2023 Rudy Veloz Acute kidney failure , [...] has questioNs re Ozempic,pt advised to see electrolytic de scaler re Ozempic and obesity/DM. Clinically appears euvlemic [...] has questioNs re Ozempic,pt advised to see electrolytic de scaler re Ozempic and obesity/DM. Clinically appears euvlemic [...] has questioNs re Ozempic,pt advised to see electrolytic de scaler re Ozempic and obesity/DM. Clinically appears euvlemic [...] has questioNs re Ozempic,pt advised to see electrolytic de scaler re Ozempic and obesity/DM. Clinically appears euvlemic [...] has questioNs re Ozempic,pt advised to see electrolytic de scaler re Ozempic and obesity/DM. Clinically appears euvlemic [...] has questioNs re Ozempic,pt advised to see electrolytic de scaler re Ozempic and obesity/DM. Clinically appears euvlemic [...] has questioNs re Ozempic,pt advised to see electrolytic de scaler re Ozempic and obesity/DM. Clinically appears euvlemic [...] has questioNs re Ozempic,pt advised to see electrolytic de scaler re Ozempic and obesity/DM. Clinically appears euvlemic [...] has questioNs re Ozempic,pt advised to see electrolytic de scaler re Ozempic and obesity/DM. Clinically appears euvlemic [...] has questioNs re Ozempic,pt advised to see electrolytic de scaler re Ozempic and obesity/DM. Clinically appears euvlemic [...] ORAL CAVITY: mucosa moist LAB SUMMARY: ///// [id number] Creat21.91.81.61.72 [id number] K5.44.64.94.75.35.2 [id number] Oatoncr14.310.410.48.99.69.4 PO4 4.55.4 Albumin 2.833.1 [id number] EGFR [id number] Hgb8.5 8.49.19.8 Hct26.6 26.127.429.4 WBC9.9 119.48 MWN170 [id number] Vit D 22.2 20.4 Iron 61 67 [...] for last 5-6 months,stopped recently. Pt states office messenger helper started her on Kerrendia aling with Veltassa. Presenting symptoms Patient reported As above.
--- OUTSIDE RECORDS SUMMARY | 2024-08-26 16:19 | XMS_ITS | Clinical Summary ---
Author Organization [employer] [facility] Address [address] [facility] Attn: Epic Prelude ADT BARRY LURISA [id number] Care Team Providers Care Ophthalmic Aide Name Role Phone Unavailable Primary Care Provider Unavailabl e Medications amLODIPine (NORVASC) 10 mg tablet Take 1 Tablet (10 mg) by mouth daily. 90 Tablet 12/20/19 24 12:45 PM CDT 024 Active insulin glargine-yfgn 100 unit/mL vial Inject 60 units at bedtime 30 mL 2 01/29/20 24 2:26 PM ATTORNEY 024 Active tirzepatide (Mounjaro) 2.5 mg/0.5 mL Pen Injector Inject 1 pen injector subcutaneously once a week. 2 mL 3 02/18/20 24 1:58 PM ATTORNEY 024 Active ezetimibe (Zetia) 10 mg tablet Take 1 Tablet (10 mg) by mouth daily. 90 Tablet 5 02/18/20 24 1:58 PM ATTORNEY 024 Active torsemide (DEMADEX) 10 mg Tablet Take 1 tablet by mouth daily 90 Tablet 04/15/19 25 6:48 PM ATTORNEY 024 Active torsemide (DEMADEX) 20 mg tablet TAKE ONE TABLET DAILY ALONG WITH A 10 MG TO EQUAL 30 MG DAILY 30 Tablet 5 07/27/19 25 4:14 PM CDT 025 Active insulin lispro (HumaLOG,ADMEL OG) 100 unit/mL pen syringe INJECT 14 UNITS WITH MEALS 15 mL 2 04/12/19 25 3:26 PM ATTORNEY 025 Active Insulin Syringe-Needle U-100 (BD Insulin Syringe Ultra-Fine) 1 mL 31 gauge x 5/16 Syringe USE FOR INSULIN INJECTIONS 200 Each 04/12/19 25 3:26 PM ATTORNEY 025 Active ferrous sulfate 325 mg (65 mg iron) tablet Take 1 Tablet (325 mg) by mouth daily. 100 Tablet 04/12/19 25 3:26 PM ATTORNEY 025 Active patiromer calcium sorbitex (Veltassa) 25.2 [...] daily 30 Packet 04/12/19 25 3:26 PM ATTORNEY 025 Active cefdinir (OMNICEF) 300 mg capsule Take 1 Capsule (300 mg) by mouth daily at 1400 3 Capsule 05/19/19 25 6:32 PM CDT 025 Active amLODIPine (NORVASC) 10 mg tablet Take 1 Tablet (10 mg) by mouth daily. 90 Tablet 1 06/02/19 25 6:03 PM CDT 025 Active Blood-Glucose Sensor (Dexcom G6 Sensor) Device CHANGE DIRECTED. 3 Each 06/02/19 6:03 PM CDT 025 Active Blood-Glucose Transmitter (Dexcom G6 Transmitter) Device CHANGE DIRECTED. 1 Each 06/02/19 6:03 PM CDT 025 Active insulin lispro (HumaLOG,ADMEL OG) 100 unit/mL pen syringe INJECT 14 UNITS WITH MEALS 15 mL 2 06/02/19 25 6:03 PM CDT 025 Active carvediloL (COREG) 25 mg tablet Take 1 Tablet (25 mg) by mouth 2 times daily. 180 Tablet 06/29/19 25 6:49 PM CDT 025 Active empagliflozin (JARDIANCE) 25 mg tablet Take 1 Tablet (25 mg) by mouth daily in the morning. 90 Tablet 07/27/19 25 4:14 PM CDT 025 Active empagliflozin (Jardiance) 25 mg tablet Take 1 Tablet (25 mg) by mouth daily in the morning. 90 Tablet 1 025 Active HYDROcodone-ac etaminophen (NORCO) 5-325 mg tablet Take 1 Tablet by mouth every 4 hours as needed. Max Daily Amount: 6 Tablets 10 Tablet 07/31/19 3:48 PM CDT 025 Active Insulin [place], Disposable, (TechLITE Pen Needle) 31 gauge x 5/16 Needle USE WITH INSULIN PEN 100 Each 08/20/19 25 6:21 PM CDT 025 Active metOLazone (ZAROXOLYN) 2.5 mg tablet Take 1 Tablet (2.5 mg) by mouth 1 time daily as needed for swelling. 90 Tablet 08/20/19 25 6:21 PM CDT 025 Active diazePAM (VALIUM) 10 mg tablet Take 1 Tablet (10 mg) by mouth 3 times daily as needed for anxiety. 84 Tablet 08/24/19 7:32 PM CDT 025 Active insulin lispro (HumaLOG,ADMEL OG) 100 unit/mL pen syringe INJECT 14 UNITS WITH MEALS 15 mL 2 08/24/19 7:32 PM CDT 025 Active ergocalciferol (Vitamin D2) 50,000 unit capsule Take 1 Capsule (50,000 Units) by mouth every 7 days. 13 Capsule 08/24/19 7:32 PM CDT 025 Active insulin glargine-yfgn 100 unit/mL pen syringe Inject 60 Units by subcutaneous injection daily. 15 mL 025 Active insulin glargine (Lantus Solostar U-100 Insulin) 100 unit/mL pen syringe Inject 60 units under the skin once daily 15 mL 08/24/19 25 7:32 PM CDT 025 Active diazePAM (VALIUM) 10 mg tablet Take 1 Tablet (10 mg) by mouth 3 times daily for 14 days NEEDED FOR ANXIETY. 42 Tablet 05/19/19 25 6:32 PM CDT 025 2024 Discontinued Insulin [place], Disposable, (BD Ultra-Fine Short Pen Needle) 31 gauge x 5/16 Needle USE WITH INSULIN PEN 100 Each 06/02/19 25 6:03 PM CDT 025 2024 Discontinued ergocalciferol (Vitamin D2) 50,000 unit capsule Take 1 Capsule (50,000 Units) by mouth every 7 days. 13 Capsule 06/14/19 25 1:17 PM CDT 025 2024 Discontinued(R eorder) torsemide (DEMADEX) 10 mg Tablet Take 1 Tablet (10 mg) by mouth 1 time daily as needed. 90 Tablet 06/14/19 1:17 PM CDT 025 2024 Discontinued insulin glargine (Lantus Solostar U-100 Insulin) 100 unit/mL pen syringe Inject 60 units under the skin once daily 15 mL 07/01/19 2:32 PM CDT 025 2024 Discontinued diazePAM (VALIUM) 10 mg tablet Take 1 Tablet (10 mg) by mouth 3 times daily as needed for anxiety. 84 Tablet 07/27/19 4:14 PM CDT 025 2024 Discontinued insulin glargine (Lantus Solostar U-100 Insulin) 100 unit/mL pen syringe Inject 60 Units by subcutaneous injection daily. 15 mL 2 025 2024 Discontinued Encounters Date Type Department Care Team Description 08/24/2024 External Device Data [facility]CTION Provider, Abstract 08/10/2024 External Device Data [facility] Provider, Abstract 07/29/2024 External Device Data [facility] Provider, Abstract 07/28/2024 External Device Data [facility]CTION Provider, Abstract 07/28/2024 External Device Data [facility] ABSTRACTION Provider, [...]
[2024-08-26 17:05] LABS: Albumin Level 3.3 g/dL (3.5-5.1); Anion Gap 7 mmol/L (4-12); Blood Urea Nitrogen 71 mg/dL (7-17); Calcium 9.1 mg/dL (8.4-10.2); Carbon Dioxide 22 mmol/L (22-30); Chloride 101 mmol/L (98-107); Estimated Glomerular Filt Rate 12; Glucose 198 mg/dL (65-110); Phosphorus 5.7 mg/dL (2.5-4.5); Sodium 130 mmol/L (137-145)
[2024-08-26 17:56] LABS: Creatinine Urine 56.8 mg/dL
[2024-08-26 18:16] LABS: Total Protein Urine Random 575 mg/dL; Ur Ttl Prot Creatinine Ratio 10.12 mg/mg (0-0.20)
[2024-08-26 18:46] LABS: Vitamin D 25 Hydroxy < 12.8 ng/mL
== END 2024-08-26 16:15 | disposition home or self-care (01) ==
LOC: ANHLAB 16:15
PROVIDERS: Visit Provider Internal Medicine Nephrology
DX: E11.22 Type 2 diabetes mellitus with diabetic chronic kidney disease (principal); I12.9 Hypertensive chronic kidney disease with stage 1 through stage 4 chronic kidney disease, or unspecified chronic kidney disease; N25.81 Secondary hyperparathyroidism of renal origin; E55.9 Vitamin D deficiency, unspecified; N18.9 Chronic kidney disease, unspecified
CPT/HCPCS: 36415; 80069; 82306; 82570; 83970; 84156

== ENCOUNTER 2024-09-21 17:21 | Outpatient (CLI) | payer OTHER, SELFPAY ==
--- NOTE | ~2024-09-21 | XR_ITS ---
Clinical Indication: Dyspnea PA and lateral views of the chest: Comparison: 07/29/2024 Findings: The lungs are clear, without evidence of focal consolidation or pleural effusion. Cardiome diastinal silhouette is within normal limits. Bones and soft tissues are unremarkable. Impression: Normal chest. Reviewed, dictated and finalized at location . Impression: Normal chest.
--- OUTSIDE RECORDS SUMMARY | 2024-09-21 16:30 | XMS_ITS ---
Author Organization [facility] Address [address] [place] [phone] Care Team Providers Care Rodding Machine Tender Name Role Phone Kelvin MEMBRENO, Andres Primary Care Provider Rudy Moses Unavailable [phone] REASON FOR VISIT NO SHOW/RESCHEDULED MULTIPLE APPTS Encounters Encounter Location Date Provider Diagnosis [facility] [address] [id number] 06/24/2023 Rudy Veloz PLAN OF TREATMENT No Information
--- OUTSIDE RECORDS SUMMARY | 2024-09-21 16:30 | XMS_ITS | Patient Health Record ---
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 confirmed Diabetic renal disease (376935842) Problem Type 2 diabetes mellitus with diabetic neuropathy, unspecified (E11.40) Active confirmed Diabetic peripheral neuropathy associated with type 2 diabetes mellitus (9565694429519) Problem 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) Active confirmed 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 (09602679435859) Problem Obesity, unspecified (E66.9) Active confirmed Obesity (884684508) Problem Vitamin D deficiency, unspecified (E55.9) Active confirmed Vitamin D deficiency (49894328) Problem Iron deficiency anemia, unspecified (D50.9) Active confirmed Iron deficiency anemia (67985266) PLAN OF TREATMENT Pending Test Test Name [...] Insured Coverage Start Date Coverage End Date [employer] [address] [place], [place] [id number] Joann Tavares Self - patient is the insured [place] [address] [place] [address] [phone] [id number] Joann Tavares Self - patient is the insured [facility] [address] [address] [place] [address] [phone] [id number] Joann Tavares Self - patient is the [...]
--- OUTSIDE RECORDS SUMMARY | 2024-09-21 16:30 | XMS_ITS | Clinical Summary ---
Author Organization [facility] Address [address] [place] [address] Phone Care Team Providers Care Whizzer Name Role Phone Matias Warren MD Primary Care Provider [phone] Allergies Active Allergy Reactions Criticality Noted Date [...] Immunization (1 of 2) 2024 Influenza Immunization (#1) 11/08/202412/09, 12/03/2019, 02/06/2018, Additional history exists Respiratory Syncytial [...] (COMPREHENSIVE METABOLIC PANEL) (10/15/2018) Blood specimen (specimen) Too Al PAC CHEMISTRY ORDERABLES Final Re sult from Last 3 Months or Most Recently Relevant to Health Maintenance Insurance MEDICARE [facility] Care Teams Whizzer Relationship Specialty Start Date End Date Matias Warren MD [address] [place] [id number] PCP - General Family Medicine 07/09/23
--- OUTSIDE RECORDS SUMMARY | 2024-09-21 16:30 | XMS_ITS | Continuity of Care Document ---
Author Organization [facility] Address [address] [place] [address] [place] [address] Phone Care Team Providers Care Wedding Decorator Name Role Phone Rocky Spence MD Unavailable [...] Copied on Encounter OFFICE/OUTPA TIENT VISIT, EST [facility], [address] [place] [place], [address], tel:[phone] [facility] DM (chief complaint)s leep apnea1 (chief complaint)p roteinuria1 (chief complaint)l ow iron (chief complaint)a nxiety1 (chief complaint) Type 2 diabetes mellitus with diabetic nephropathyEssenti al (primary) hypertensionSleep apneaBody mass index (BMI) 50-59.9 , adult 7 Jordy Hidalgo. [address], [place], [place], [address] , [place]. tel:[phone] Referring Provider: Rocky Spence [address], [place], [place], [address]. tel:[phone] [facility], [address] [place] [place], [address], [place] tel:[phone] [facility] No Information 7 Jordy Hidalgo. [address], [place], [place], [address] , [place]. tel:[phone] OFFICE/OUTPA TIENT VISIT, EST [facility], [address] [place] [place], [address], [place] tel:[phone] [facility] DM1 (chief complaint)H TN (chief complaint)a neity1 (chief complaint)o beisty1 (chief complaint) Type 2 diabetes mellitus without complicationsEssen tial (primary) hypertensionBody mass index (BMI) 50-59.9 , adultAnxiolytic dependence Fercho- 7 Jordy Soto [address], [place], [place], [address] , [place]. tel:[phone] [facility], [address], [place], [place], [address], [place] tel:[phone] [facility] No Information 7 Jordy Soto [address], [place], [place], [address] , [place]. tel:[phone] OFFICE/OUTPA TIENT VISIT, [facility], [address], [place], [place], [address], [place] tel:[phone] [facility] HTN (chief complaint)s leep apnea1 (chief complaint)a nxiety1 (chief complaint)D M (chief complaint) Sleep apneaEssential (primary) hypertensionType 2 diabetes mellitus without complicationsAnxio lytic dependence 7 Jordy Soto [address], [place], [place], [address] , [place]. tel:[phone] [facility], [address], [place], [place], [address], [place] tel:[phone] [facility] No Information 7 Jordy Soto [address], [place], [place], [address] , [place]. tel:[phone] OFFICE/OUTPA TIENT VISIT, [facility], [address], [place], [place], [address], [place] tel:[phone] [facility] DM (chief complaint)H TN (chief complaint)a nxiety1 (chief complaint)a nemia1 (chief complaint) Type 2 diabetes mellitus without complicationsAnxio lytic dependenceEssentia l (primary) hypertensionBody mass index (BMI) 50-59.9 , adult Fe- 7 Jordy Soto [address], [place], [place], [address] , [place]. tel:[phone] Referring Provider: Wilfred Lopez [address], [place], [place], [address]. tel:[phone] OFFICE/OUTPA TIENT VISIT, EST [facility], [address], [place], [place], [address], [place] tel:[phone] [facility] HTN (chief complaint)a nxiety1 (chief complaint)D M (chief complaint) Essential (primary) hypertensionType 2 diabetes mellitus without complicationsAnxio lytic dependenceBody mass index (BMI) 50-59.9 , adult Feb- 6 Jordy Hidalgo. [address], [place], [place], [address] , [place]. [phone] Referring Provider: Wilfred Lopez [address], [place], [place], [address]. tel:[phone] PREV VISIT, EST, AGE 40-64 [facility], [address], [place], [place], [address], [place] tel:[phone] [facility] PHysical (chief complaint) Encntr for general adult medical exam w/o abnormal findings 6 Jordy Hidalgo. [address], [place], [place], [address] , [place]. [phone] Referring Provider: Wilfred Lopez [address], [place], [place], [address]. tel:[phone] OFFICE/OUTPA TIENT VISIT, EST [facility], [address], [place], [place], [address], [place] tel:[phone] [facility] DM (chief complaint)H TN (chief complaint)a nxiety1 (chief complaint)i silvino deficiecy (chief complaint) Iron deficiencyEssentia l (primary) hypertensionAnxiol ytic dependenceType 2 diabetes mellitus without complications 0 6 Jordy Hidalgo. [address], [place], [place], [address] , [place]. [phone] [facility], [address], [place], [place], [address], [place] tel:[phone] [facility] No Information 6 Jordy Hidalgo. [address], [place], [place], [address] , [place]. tel:[phone] OFFICE/OUTPA TIENT VISIT, [facility], [address], [place], [place], [address], [place] tel:[phone] [facility] HTN (chief complaint)D M (chief complaint)a nixety1 (chief complaint) Type 2 diabetes mellitus without complicationsEssen tial (primary) hypertensionAnxiol ytic dependence 6 Jordy Hidalgo. [address], [place], [place], [address] , [place]. [phone] Referring Provider: Wilfred Lopez [address], [place], [place], [address]. tel:[phone] OFFICE/OUTPA TIENT VISIT, [facility], [address], [place], [place], [address], [place] tel:[phone] [facility] DM (chief complaint)a nxiety1 (chief complaint)H TN (chief complaint) Type 2 diabetes mellitus without complicationsAnxio lytic dependenceEssentia l (primary) hypertension 6 Jordy Hidalgo. [address], [place], [place], [address] , [place]. [phone] Referring Provider: Wilfred [address], [place], [place], [address]. tel:[phone] OFFICE/OUTPA TIENT VISIT, [facility], [address], [place], [place], [address], [place] tel:[phone] [facility] HTN (chief complaint)D M (chief complaint)a nxiety1 (chief complaint) Essential (primary) hypertensionType 2 diabetes mellitus without complicationsAnxio lytic dependence 6 Jordy Hidalgo. [address], [place], [place], [address] , [place]. tel:[phone] Referring Provider: Wilfred Lopez [address], [place], [place], [address]. tel:[phone] OFFICE/OUTPA TIENT VISIT, [facility], [address], [place], [place], [address], [place] tel:[phone] [facility] DM (chief complaint)i silvino deficiency (chief complaint)p roteinuria (chief complaint)H TN (chief complaint) Type 2 diabetes mellitus without complicationsProte inuriaIron deficiencyEssentia l (primary) hypertension 6 Jordy Hidalgo. [address], [place], [place], [address] , [place]. tel:[phone] Referring Provider: Wilfred [address], [place], [place], [address]. tel:[phone] OFFICE/OUTPA TIENT VISIT, [facility], [address], [place], [place], [address], [place] tel:[phone] [facility] DM (chief complaint)a nxiety1 (chief complaint)H TN (chief complaint) Type 2 diabetes mellitus without complicationsAnxio lytic dependenceEssentia l (primary) hypertensionTachyc ardia 6 Jordy Hidalgo. [address], [place], [place], [address] , [place]. [phone] Referring Provider: Wilfred Lopez [address], [place], [place], [address]. tel:[phone] OFFICE/OUTPA TIENT VISIT, [facility], [address], [place], [place], [address], [place] tel:[phone] [facility] HTN1 (chief complaint)d M (chief complaint)a nxiety1 (chief complaint) Type 2 diabetes mellitus without complicationsEssen tial (primary) hypertensionAnxiol ytic dependence 6 Jordy Hidalgo. [address], [place], [place], [address] , [place]. tel:[phone] Referring Provider: Wilfred Lopez [address], [place], [place], [address]. tel:[phone] OFFICE/OUTPA TIENT VISIT, [facility], [address], [place], [place], [address], [place] tel:[phone] [facility] HTN (chief complaint)D M (chief complaint)a nxiety1 (chief complaint) Type 2 diabetes mellitus without complicationsAnxio lytic dependenceEssentia l (primary) hypertensionEncoun ter for oth screening for malignant neoplasm of breast 6 Jordy Hidalgo. [address], [place], [place], [address] , [place]. [phone] Referring Provider: Wilfred Lopez [facility] A, [place], [place], [address]. tel:[phone] OFFICE/OUTPA TIENT VISIT, [facility], [address], [place], [place], [address], [place] tel:[phone] [facility] HTN1 (chief complaint)D M1 (chief complaint)A nxiety1 (chief complaint)S ick1 (chief complaint) Type 2 diabetes mellitus without complicationsEssen tial (primary) hypertensionAcute upper respiratory infection, unspecifiedAnxioly tic dependence 5 Jordy Hidalgo. [address], [place], [place], [address] , [place]. [phone] Referring Provider: Wilfred Lopez [facility] A, [place], [place], [address]. tel:[phone] OFFICE/OUTPA TIENT VISIT, [facility], [address], [place], [place], [address], [place] tel:[phone] [facility] HTN1 (chief complaint)D M1 (chief complaint)a nxiety1 (chief complaint)n oncompliant (chief complaint)c hest pain1 (chief complaint) Essential (primary) hypertensionType 2 diabetes mellitus without complications 5 Jordy Soto [address], [place], [place], [address] , [place]. tel:[phone] Referring Provider: Wilfred Lopez [address], [place], [place], [address]. tel:[phone] OFFICE/OUTPA TIENT VISIT, [facility], [address], [place], [place], [address], tel:[phone] [facility] DM1 (chief complaint)A nxiety1 (chief complaint)H TN1 (chief complaint)s leep apnea1 (chief complaint) Dietary surveillance and counselingType 2 diabetes mellitus w/o complicationEssent ial (primary) hypertensionOther sleep apnea 5 Jordy Hidalgo. [address], [place], [place], [address] , [place]. tel:[phone] Referring Provider: [address], [place], [place], [address]. tel:[phone] OFFICE/OUTPA TIENT VISIT, [facility], [address] [place], [address], [place] tel:[phone] [facility] DM (chief complaint)H TN (chief complaint)a nxiety (chief complaint) Dietary surveillance and counselingBrittle diabetesUnspecifie d essential hypertensionCurren t use of insulin 5 Jordy Soto [address], [place], [place], [address] , [place]. tel:[phone] Referring Provider: [address], [place], [place], [address]. tel:[phone] OFFICE/OUTPA TIENT VISIT, [facility], [address] [place], [address], [place] tel:[phone] [facility] HTN (chief complaint)D M (chief complaint)s leep apnea (chief complaint) Dietary surveillance and counselingUnspecif ied essential hypertensionUnspec ified sleep apneaBrittle diabetesBMI 50.0 to 59.9 5 Jordy Soto [address], [place], [place], [address] , [place]. tel:[phone] Referring Provider: Rocky Spence, [address], [place], [place], [address]. tel:[phone] OFFICE/OUTPA TIENT VISIT, [facility], [address], [place], [place], [address], [place] tel:[phone] [facility] fatty liver (chief complaint)D M (chief complaint)H TN (chief complaint) Dietary surveillance and counselingUnspecif ied essential hypertensionOther specified disorders of liverBrittle diabetes 5 Jordy Hidalgo. [address], [place], [place], [address] , [place]. tel:[phone] Referring Provider: Rocky Spence, [address], [place], [place], [address]. tel:[phone] [facility], [address], [place], [place], [address], [place] tel:[phone] [facility] No Information 5 Jordy Hidalgo. [address], [place], [place], [address] , [place]. tel:[phone] OFFICE/OUTPA TIENT VISIT, [facility], [address], [place], [place], [address], [place] tel:[phone] [facility] Anxiety (chief complaint)D M (chief complaint) Dietary surveillance and counselingBrittle diabetesBlood pressure elevated 5 Jordy Hidalgo. [address], [place], [place], [address] , [place]. tel:[phone] Referring Provider: Rocky Spence, [address], [place], [place], [address]. tel:[phone] OFFICE/OUTPA TIENT VISIT, [facility], [address], [place], [place], [address], [place] tel:[phone] [facility] sleep apnea (chief complaint)A nxeity (chief complaint)D M (chief complaint) Dietary surveillance and counselingUnspecif ied sleep apneaBrittle diabetesUnspecifie d disorder of liver 5 Jordy Hidalgo. [address], [place], [place], [address] , [place]. tel:[phone] Referring Provider: Wilfred Lopez [address], [place], [place], [address]. tel:[phone] OFFICE/OUTPA TIENT VISIT, [facility], [address], [place], [place], [address], [place] tel:[phone] [facility] DM (chief complaint)s leep apnea (chief complaint)a nxiety (chief complaint) Dietary surveillance and counselingDiabetes Mellitus Type 2, UncomplicatedSleep ApneaUnspecified disorder of liver 5 Jordy Hidalgo. [address], [place], [place], [address] , [place]. [phone] Referring Provider: Wilfred Lopez [address], [place], [place], [address]. tel:[phone] OFFICE/OUTPA TIENT VISIT, [facility], [address], [place], [place], [address], [place] tel:[phone] [facility] DM (chief complaint)H TN (chief complaint)s leep apnea (chief complaint)L FT (chief complaint) Dietary surveillance and counselingDiabetes Mellitus Type 2, UncomplicatedHyper tension, UnspecifiedUnspeci fied disorder of liverSleep Apnea 5 Jordy Hidalgo. [address], [place], [place], [address] , [place]. [phone] Referring Provider: Wilfred Lopez [address], [place], [place], [address]. tel:[phone] OFFICE/OUTPA TIENT VISIT, [facility], [address], [place], [place], [address], [place] tel:[phone] [facility] anxiety (chief complaint)D M (chief complaint) Dietary surveillance and counselingDiabetes Mellitus Type 2, UncomplicatedSleep ApneaSedative, hypnotic or anxiolytic dependence, unspecified Fe 5 Jordy Hidalgo. [address], [place], [place], [address] , [place]. [phone] Referring Provider: Rocky Spence, [address], [place], [place], [address]. tel:[phone] OFFICE/OUTPA TIENT VISIT, [facility], [address], [place], [place], [address], [place] [phone] [facility] DM (chief complaint)a nxiety (chief complaint)H TN (chief complaint)s leep apnea (chief complaint) Dietary surveillance and counselingDiabetes Mellitus, Adult Onset, UncontrolledHypert ension, UnspecifiedSleep Apnea 5 Jordy Hidalgo. [address], [place], [place], [address] , [place]. [phone] Referring Provider: Wilfred Lopez [address], [place], [place], [address]. tel:[phone] OFFICE/OUTPA TIENT VISIT, [facility], [address], [place], [place], [address], [place] tel:[phone] [facility] DM (chief complaint)s leep apnea (chief complaint)a nxiety (chief complaint) Dietary surveillance and counselingDiabetes Mellitus Type 2, UncomplicatedSleep ApneaCentral hearing lossHypertension, Unspecified 4 Jordy Hidalgo. [address], [place], [place], [address] , [place]. tel:[phone] Referring Provider: Wilfred Lopez [address], [place], [place], [address]. tel:[phone] OFFICE/OUTPA TIENT VISIT, [facility], [address], [place], [place], [address], [place] tel:[phone] [facility] DM (chief complaint)l ow iron (chief complaint)a nxiety (chief complaint) AnemiaHypertension , UnspecifiedDiabete s Mellitus, Adult Onset, UncontrolledDietar y surveillance and counseling 4 Jordy Hidalgo. [address], [place], [place], [address] , . tel:[phone] Referring Provider: Rocky Spence, [address], [place], [place], [address]. tel:[phone] OFFICE/OUTPA TIENT VISIT, [facility], [address], [place], [place], [address], [place] tel:[phone] [facility] finger infection (chief complaint)a nxiety (chief complaint)D M (chief complaint) Dietary surveillance and counselingDiabetes Mellitus, Adult Onset, UncontrolledOnychi a and paronychia of fingerSleep ApneaHypertension, Unspecified 4 Jordy Hidalgo. [address], [place], [place], [address] , . tel:[phone] Referring Provider: Wilfred Lopez [address], [place], [place], [address]. tel:[phone] OFFICE/OUTPA TIENT VISIT, [facility], [address] [place], [address], [place] tel:[phone] [facility] headache (chief complaint)a nxiety (chief complaint)s leep apnea (chief complaint)t innitus (chief complaint) Dietary surveillance and counselingHeadache Sleep ApneaCentral hearing loss 4 Jordy Hidalgo. [address], [place], [place], [address] , [place]. tel:[phone] Referring Provider: Wilfred Lopez [address], [place], [place], [address]. tel:[phone] OFFICE/OUTPA TIENT VISIT, [facility], [address], [place], [place], [address], [place] tel:[phone] [facility] DM (chief complaint)a nxiety (chief complaint)h and numbness (chief complaint) Dietary surveillance and counselingDiabetes Mellitus Type 2, UncomplicatedDistu rbance of skin sensationCervicalg ia 4 Jordy Hidalgo. [address], [place], [place], [address] , [place]. tel:[phone] Referring Provider: Wilfred Lopez [address], [place], [place], [address]. tel:[phone] OFFICE/OUTPA TIENT VISIT, [facility], [address], [place], [place], [address], [place] tel:[phone] [facility] DM (chief complaint)H TN (chief complaint)a nxiety (chief complaint)d izziness (chief complaint)s leep apnea (chief complaint) Diabetes Mellitus Type 2, UncomplicatedVerti goHypertension, UnspecifiedSleep Apnea 4 Jordy Hidalgo. [address], [place], [place], [address] , . tel:[phone] Referring Provider: Wilfred Lopez [address], [place], [place], [address]. tel:[phone] OFFICE/OUTPA TIENT VISIT, [facility], [address] [place], [address], [place] tel:[phone] [facility] DM (chief complaint)a nxiety (chief complaint)H TN (chief complaint) Dietary surveillance and counselingDiabetes Mellitus, Adult Onset, UncontrolledHypert ension, Unspecified 4 Jordy Hidalgo. [address], [place], [place], [address] , [place]. tel:[phone] Referring Provider: Wilfred Lopez [address], [place], [place], [address]. tel:[phone] OFFICE/OUTPA TIENT VISIT, [facility], [address], [place], [place], [address], [place] tel:[phone] [facility] Tinnitus (chief complaint)a nxiety (chief complaint)D M (chief complaint) Tinnitus, unspecifiedVertigo Diabetes Mellitus Type 2, UncomplicatedDieta ry surveillance and counseling 4 Jordy Hidalgo. [address], [place], [place], [address] , . tel:[phone] Referring Provider: Wilfred Lopez [address], [place], [place], [address]. tel:[phone] OFFICE/OUTPA TIENT VISIT, [facility], [address], [place], [place], [address], tel:[phone] [facility] DM (chief complaint)H TN (chief complaint)a nxiety (chief complaint) Dietary surveillance and counselingDiabetes Mellitus Type 2, UncomplicatedHyper tension, Unspecified 4 Jordy Hidalgo. [address], [place], [place], [address] , [place]. tel:[phone] Referring [facility]: [facility] [place], [place], [address]. tel:[phone] OFFICE/OUTPA TIENT VISIT, [facility], [address], [place], [place], [address], [place] tel:[phone] [facility] shingle (chief complaint)A nxiety (chief complaint)S inus (chief complaint)D M (chief complaint) Dietary surveillance and counselingHerpes zoster without mention of complicationSinusi tis, AcuteTinnitus, unspecifiedDiabete s Mellitus, Adult Onset, Uncontrolled 4 Jordy Hidalgo. [address], [place], [place], [address] , [place]. tel:[phone] Referring Provider: Wilfred Lopez [address], [place], [place], [address]. tel:[phone] OFFICE/OUTPA TIENT VISIT, [facility], [address], [place], [place], [address], [place] tel:[phone] [facility] anxiety (chief complaint)e ar pain (chief complaint)b ack pain (chief complaint) Dietary surveillance and counselingDietary surveillance and counselingTinnitus , unspecifiedLumbago Otalgia, unspecified 4 Jordy Hidalgo. [address], [place], [place], [address] , [place]. tel:[phone] Referring Provider: Wilfred Lopez [address], [place], [place], [address]. tel:[phone] OFFICE/OUTPA TIENT VISIT, [facility], [address], [place], [place], [address], [place] tel:[phone] [facility] HTN (chief complaint)D M (chief complaint)a nxiety (chief complaint) Dietary surveillance and counselingHyperten sarah, UnspecifiedDiabete s Mellitus, Adult Onset, Uncontrolled 4 Jordy Hidalgo. [address], [place], [place], [address] , [place]. [phone] Referring Provider: Wilfred Lopez [address], [place], [place], [address]. tel:[phone] OFFICE/OUTPA TIENT VISIT, [facility], [address], [place], [place], [address], [place] tel:[phone] [facility] DM (chief complaint)a nxiety (chief complaint) Dietary surveillance and counselingHyperten sarah, UnspecifiedDiabete s Mellitus, Adult Onset, Uncontrolled 4 Jordy Hidalgo. [address], [place], [place], [address] , [place]. tel:[phone] Referring Provider: Wilfred Lopez [address], [place], [place], [address]. tel:[phone] OFFICE/OUTPA TIENT VISIT, [facility], [address], [place], [place], [address], [place] tel:[phone] [facility] anxiety (chief complaint)U RI (chief complaint)D M (chief complaint) Dietary surveillance and counselingDiabetes Mellitus, Adult Onset, UncontrolledAcute upper respiratory infections of other multiple sites 3 Jordy Hidalgo. [address], [place], [place], [address] , [place]. tel:[phone] Referring Provider: Rocky Spence [address], [place], [place], [address]. tel:[phone] OFFICE/OUTPA TIENT VISIT, [facility], [address], [place], [place], [address], [place] tel:[phone] [facility] HTN (chief complaint)D M (chief complaint)a nxiety (chief complaint) Dietary surveillance and counselingHyperten sarah, UnspecifiedDiabete s Mellitus, Adult Onset, Uncontrolled 3 Jordy Hidalgo. [address], [place], [place], [address] , [place]. tel:[phone] OFFICE/OUTPA TIENT VISIT, [facility], [address], [place], [place], [address], [place] tel:[phone] [facility] HTN (chief complaint)a nxiety (chief complaint)f atigue (chief complaint) Dietary surveillance and counselingLumbagoH ypertension, UnspecifiedSleep Apnea 3 Jordy Hidalgo. [address], [place], [place], [address] , [place]. tel:[phone] Referring Provider: Wilfred Lopez [address], [place], [place], [address]. tel:[phone] OFFICE/OUTPA TIENT VISIT, [facility], [address], [place], [place], [address], [place] tel:[phone] [facility] HTN (chief complaint)D M (chief complaint)a nxiety (chief complaint) Dietary surveillance and counselingLumbagoH ypertension, UnspecifiedDiabete s Mellitus Type 2, Uncomplicated 3 Jordy Hidalgo. [address], [place], [place], [address] , [place]. tel:[phone] Referring Provider: Wilfred Lopez [address], [place], [place], [address]. tel:[phone] OFFICE/OUTPA TIENT VISIT, [facility], [address], [place], [place], [address], [place] tel:[phone] [facility] anemia (chief complaint)D M (chief complaint)a nxiety (chief complaint) AnemiaHypertension , UnspecifiedDiabete s Mellitus Type 2, UncomplicatedDieta ry surveillance and counseling 3 Jordy Hidalgo. [address], [place], [place], [address] , [place]. [phone] Referring Provider: Rocky Spence, [address], [place], [place], [address]. tel:[phone] OFFICE/OUTPA TIENT VISIT, [facility], [address], [place], [place], [address], [place] tel:[phone] [facility] anemia (chief complaint)D M (chief complaint)H TN (chief complaint) AnemiaDietary surveillance and counselingDiabetes Mellitus, Adult Onset, UncontrolledHypert ension, Unspecified 3 Jordy Hidalgo. [address], [place], [place], [address] , [place]. tel:[phone] Referring Provider: Rocky Spence [address], [place], [place], [address]. tel:[phone] OFFICE/OUTPA TIENT VISIT, [facility], [address], [place], [place], [address], [place] tel:[phone] [facility] anxiety (chief complaint)D M (chief complaint)b ronchitis (chief complaint) Dietary surveillance and counselingDiabetes Mellitus, Adult Onset, UncontrolledHypert ension, UnspecifiedBronchi tis, Acute 3 Jordy Soto [address], [place], [place], [address] , [place]. [phone] Referring Provider: Rocky pSence [address], [place], [place], [address]. tel:[phone] OFFICE/OUTPA TIENT VISIT, [facility], [address], [place], [place], [address], [place] tel:[phone] [facility] HTN (chief complaint)a nxiety (chief complaint)s ick (chief complaint) Acute upper respiratory infections of other multiple sitesHypertension, UnspecifiedDiabete s Mellitus, Adult Onset, Uncontrolled 3 Jordy Hidalgo. [address], [place], [place], [address] , [place]. tel:[phone] Referring Provider: Rocky Spence, [address], [place], [place], [address]. tel:[phone] OFFICE/OUTPA TIENT VISIT, [facility], [address], [place], [place], [address], [place] tel:[phone] [facility] HTN (chief complaint)D M (chief complaint)a nxiety (chief complaint) Dietary surveillance and counselingHyperten sarah, UnspecifiedDiabete s Mellitus, Adult Onset, Uncontrolled Jun- 3 Jordy Hidalgo. [address], [place], [place], [address] , [place]. [phone] Referring Provider: Wilfred Lopez [address], [place], [place], [address]. tel:[phone] OFFICE/OUTPA TIENT VISIT, [facility], [address], [place], [place], [address], [place] tel:[phone] [facility] HTN (chief complaint)V ision chanage (chief complaint)A nemia (chief complaint) Dietary surveillance and counselingAnemiaDi abetes Mellitus, Adult Onset, UncontrolledHypert ension, UnspecifiedCarotid Artery Disease, Unilateral 3 Jordy Hidalgo. [address], [place], [place], [address] , [place]. [phone] Referring Provider: Wilfred Lopez [address], [place], [place], [address]. tel:[phone] OFFICE/OUTPA TIENT VISIT, [facility], [address], [place], [place], [address], [place] tel:[phone] [facility] cough (chief complaint)H TN (chief complaint) Dietary surveillance and counselingAcute upper respiratory infections of other multiple sitesHypertension, UnspecifiedDiabete s Mellitus, Adult Onset, Uncontrolled 3 Jordy Hidalgo. [address], [place], [place], [address] , [place]. [phone] Referring Provider: Wilfred Lopez [address], [place], [place], [address]. tel:[phone] OFFICE/OUTPA TIENT VISIT, [facility], [address], [place], [place], [address], [place] tel:[phone] [facility] anxiety (chief complaint)H TN (chief complaint)D M (chief complaint) Dietary surveillance and counselingHyperten sarah, UnspecifiedDiabete s Mellitus, Adult Onset, UncontrolledLumbag o 3 Jordy Hidalgo. [address], [place], [place], [address] , [place]. [phone] Referring Provider: [address], [place], [place], [address]. tel:[phone] OFFICE/OUTPA TIENT VISIT, [facility], [address], [place], [place], [address], [place] tel:[phone] [facility] DM/HTN (chief complaint)a nxiety (chief complaint)a nemia (chief complaint) Dietary surveillance and counselingDiabetes Mellitus Type 2, UncomplicatedAnemi aLumbagoHypertensi on, Unspecified 2 Jordy Hidalgo. [address], [place], [place], [address] , [place]. tel:[phone] Referring Provider: Wilfred [address], [place], [place], [address]. tel:[phone] OFFICE/OUTPA TIENT VISIT, [facility], [address], [place], [place], [address], tel:[phone] [facility] back pain (chief complaint)a nxiety (chief complaint)D M (chief complaint) Dietary surveillance and counselingLumbagoD iabetes Mellitus Type 2, UncomplicatedHyper tension, Unspecified 2 Jordy Hidalgo. [address], [facility] A, [place], [place], [address] , . tel:[phone] Referring Provider: Wilfred Lopez [facility] A, [place], [place], [address]. tel:[phone] OFFICE/OUTPA TIENT VISIT, [facility], [address], [place], [place], [address], tel:[phone] [facility] anxiety (chief complaint)b ack pain (chief complaint)H TN (chief complaint)a nemia (chief complaint) Dietary surveillance and counselingLumbagoA nemiaHypertension, Unspecified 2 Jordy Hidalgo. [address], [place], [place], [address] , [place]. tel:[phone] Referring Provider: Wilfred Lopez [facility], [place], [place], [address]. tel:[phone] Family History Family Member Type Diagnosis Age [...] ordered Referral Referred To: Tosha Kilpatrick [address] [place], [id number] Ordered: Referrals: Tosha Kilpatrick. Evaluate and treat [...] or headache sleep apnea1 Pt has sleep debeaker ea Pt uses CPAP nightly. Pt still [...] foot numbness. anxiety1 Pt has chronic a niety and depression. pt takes xanax PRN. Pt denies any suicidal or homicdial thought Pt denies any crying spells HTN Pt takes clonidi ne, norvasc and losartan.hctz. Her BP is still high. Pt denies any chest pain or headache. DM Pt takes 40 unit s of lantus at night and humalog before meals. Pt states that her BG is around 250s still at home. Pt denies any polyruia, polydipsia. Pt denies any hypoglycemia. Pt unable to tolerate metformin. Pt denies any foot numbness anemia1 Pt is noncomplia nt with EGD and colonoscopy. Pt denies any GI blood loss. Pt has not done lab yet. Pt denies any syncope or dizziness DM Pt takes lantus 35 units and also humalog Her BG is around 250s. P denies any polyuria, polydispia. pt is not very good with diet. Pt also has not doen lab yet anxiety1 Pt has chronic a nxiety. pt denies any depressin or any suicidal thouight. Pt denies any crying spells HTN Pt has HTN. Pt t akes [...] per rectum. Pt denies any abd pain HTN Pt takes norvasc , losartan.HCTZ and and also clonidine. Pt has not taken the 2nd dose of clonidine yet. Her BP is high. Pt denies any headache, chest pain DM Pt has DM. Pt ta kes lantus and humalog. Pt states that her BG is around 120s now. Pt denies any hypoglycemia Pt denies any polyuria, polydipsia HTN Pt takes losaran , hctz and [...] any chest pain or headache DM Pt has poorly co ntrolled DM. [...] symptoms now anxiety1 Pt has chronic a nxiety Pt [...] headache Pt is on low salt diet HTN Pt takes lorsart an/HTZ and norvasc [...] crying spells or any feeling of hopelessness. DM Pt has DM. Pt is taking lantus 5 units at night and humalog 17 units before meals Pt is on 4 mg amaryl .Her BG is around 150s. Pt is working up towards lantus 10. PT denies any hypoglycemia Pt denies any polyuria polydipsia Sick1 Pt c/o running n ose, dry [...] pt denies any chest pain or headache chest pain1 Pt states that s he has chornic chest pain for 20 years, not exertional related. Pt staes that chest pain is worse with anxiety. She has been having chest pain for 20 years. Pt is seeing cardiology. Pt is getting holter and echo and stress test soon. Pt denies any acute chset pain. 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 Pt staes that she is afraid that she is going to with lantus or other meds? anxiety1 Pt has chronic a nxiety. Pt denies any depression or any suicidasl thought. Pt takes xanax daily. Pt has frequent panic attacks DM1 Pt has DM. Pt is on amaryl and humalog 17 units before meal. Her BG is over 200. Her A1c is close to 9. Pt is very noncompliant. Pt denies any hypoglycemia HTN Pt has HTN. Pt t akes losaran/HCTZ [...] or headache sleep apnea1 Pt has sleep debeaker ea. Pt has been using CPAP nightly [...] of energy. Instructions Date Instruction Additional Infor anthonyion Prescribed Diet Educ ation/Lifestyle Education Regarding Diet Related to Dietary Surveillance and Counseling Prescribed Activity and Exercise Education Related to Dietary Surveillance and Counseling Increase [...] Mental Status Date Cognitive Assessment Orientation - Merrill ed to time, place, person, situation.
--- OUTSIDE RECORDS SUMMARY | 2024-09-21 16:30 | XMS_ITS | Clinical Summary ---
Author Organization [facility] [employer] [facility] [employer] [facility] Address [address] [address] Phone Care Team Providers Care Consulting It Architect Name Role Phone Matias Warren MD Primary Care Provider [phone] Allergies Active Allergy Reactions Criticality Noted Date [...] time each day Active ergocalciferol 1.25 MG (80736 UT) capsule Take 50,000 Units by mouth [...] Hemoglobin A1C 10/21/2023 07/21/2023, 07/08 Influenza Vaccine (#1) 2024 12/06/2019 Procedures Procedure Name Priority Date/Time Associated [...] 8.6(A) 8.7 - 10.7 mg/dL eGFR Non-Afr Tristanian 25(L) Hemoglobin A1C 8.5(A) 4.0 - 6.0 Glucose, UA 4+ mg/dL Bilirubin, UA Negative Ketones, UA Negative Urine Specific [place] 1.015 Blood, UA 3+ Randy/ul pH, UA [...] Recently Relevant to Health Maintenance Insurance Medicare [facility] Care Teams Consulting It Architect Relationship Specialty Start Date End Date Matias Warren MD [address] [place] [id number] PCP - General Internal Medicine 07/24/23
--- OUTSIDE RECORDS SUMMARY | 2024-09-21 16:30 | XMS_ITS | Referral Summary ---
Author Organization [facility] Address [address] [place] [address] Care Team Providers Care Sign Erector Name Role Phone Matias Warren MD Primary Care Provider [phone] Allergies Active Allergy Reactions Criticality Noted Date [...] alcohol) [facility] Utilities Answer Date Recorded In the past 12 months has [facility], [employer], or water [employer] threatened to shut off services in your [...] often do you attend chur ch or yazidi services? 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 Gender Identity Not on file Sexual Orientation [...] Plan of Treatment Not on file Insurance [employer] MEDICARE FOR[facility]LY [facility] MEDICARE [facility] MEDIC[facility] Address: [address] [address] [place] [address] Advance Directives For more information, please contact: [phone] * Full Code (Latest Code Status on File) Date Activated Date Inactivated Comments 07/23/2023 3:39 PM 07/25/2023 6:34 PM Care Teams Sign Erector Relationship Specialty Start Date End Date Matias Warren MD [address] [place] [id number] PCP - General Internal Medicine 07/20/23
--- OUTSIDE RECORDS SUMMARY | 2024-09-21 16:30 | XMS_ITS | Clinical Summary ---
Author Organization [facility] Address [address] [place] [address] Care Team Providers Care Photonics Engineering Technologist Name Role Phone Matias Warren MD Primary Care Provider [phone] Allergies Active Allergy Reactions Criticality Noted Date [...] drink = 0.6 oz pur e alcohol) [facility] Utilities Answer Date Recorded In the [...] often do you attend chur ch or quaker services? Never 07/23/2023 Do you belong to any clubs o r organizations such as religious groups, unions, fraternal or athletic groups, or [...] place to sleep or slept in a [place] facility (including now)? 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
--- OUTSIDE RECORDS SUMMARY | 2024-09-21 16:30 | XMS_ITS | Clinical Summary ---
Author Organization [facility] Address [address] [place] [address] Care Team Providers Care Set Illustrator Name Role Phone Teresita Cortez MD Primary Care Provider [phone] Source Comments [facility] [employer],non-owned Affiliates and Associated Physician Practices is amultiple site organization consisting of ambulatory clinics and hospital sitesin [place], [place], [place] and [place]. This disclosure is being madepursuant to the Care Everywhere program and may not contain all information available regarding this patient. Last updated 17.[facility] [employer] Allergies Active Allergy Reactions Criticality Noted Date [...] VACCINE (1 of 2) 2024 INFLUENZA VACCINE (#1) 2024 0, 03/10/2010 HIB VACCINE Aged Out No longer [...] Insurance MEDICAID - OUT OF STATE MEDICARE [facility] SELF PAY NO INSURANCE Member Subscriber Plan / Payer (Ef fective for All Dates) Name:Joann Tavares Member ID:Not on file Relation to Subscriber:Not on file Name:JOANN TAVARES Subscriber ID:Not on file (Home) Address: [facility] [place] [address] [address] Payer ID:Not on file Group ID:Not on file Type:Self Pay Address: [place], [place] Care Teams Set Illustrator Relationship Specialty Start Date End Date Teresita Cortez MD [address] [place] [address] [address] [place] [id number] PCP - General 05/07/19
--- OUTSIDE RECORDS SUMMARY | 2024-09-21 16:31 | XMS_ITS | Clinical Summary ---
Author Organization [employer] [facility] Address [address] [facility] Attn: Epic Prelude ADT BARRY LURISA [address] Care Team Providers Care Urgent Care Technician Name Role Phone Unavailable Primary Care Provider Unavailabl e Medications amLODIPine (NORVASC) 10 mg tablet Take 1 Tablet (10 mg) by mouth daily. 90 Tablet 12/20/19 24 12:45 PM CDT 024 Active insulin glargine-yfgn 100 unit/mL vial Inject 60 units at bedtime 30 mL 2 01/29/20 24 2:26 PM TOPOGRAPHICAL ENGINEER 024 Active tirzepatide (Mounjaro) 2.5 mg/0.5 mL Pen Injector Inject 1 pen injector subcutaneously once a week. 2 mL 3 02/18/20 24 1:58 PM TOPOGRAPHICAL ENGINEER 024 Active ezetimibe (Zetia) 10 mg tablet Take 1 Tablet (10 mg) by mouth daily. 90 Tablet 5 02/18/20 24 1:58 PM TOPOGRAPHICAL ENGINEER 024 Active torsemide (DEMADEX) 10 mg Tablet Take 1 tablet by mouth daily 90 Tablet 04/15/19 25 6:48 PM TOPOGRAPHICAL ENGINEER 024 Active torsemide (DEMADEX) 20 mg tablet TAKE ONE TABLET DAILY ALONG WITH A 10 MG TO EQUAL 30 MG DAILY 30 Tablet 5 07/27/19 25 4:14 PM CDT 025 Active insulin lispro (HumaLOG,ADMEL OG) 100 unit/mL pen syringe INJECT 14 UNITS WITH MEALS 15 mL 2 04/12/19 25 3:26 PM TOPOGRAPHICAL ENGINEER 025 Active Insulin Syringe-Needle U-100 (BD Insulin Syringe Ultra-Fine) 1 mL 31 gauge x 5/16 Syringe USE FOR INSULIN INJECTIONS 200 Each 04/12/19 25 3:26 PM TOPOGRAPHICAL ENGINEER 025 Active ferrous sulfate 325 mg (65 mg iron) tablet Take 1 Tablet (325 mg) by mouth daily. 100 Tablet 04/12/19 25 3:26 PM TOPOGRAPHICAL ENGINEER 025 Active patiromer calcium sorbitex (Veltassa) 25.2 [...] daily 30 Packet 04/12/19 25 3:26 PM TOPOGRAPHICAL ENGINEER 025 Active cefdinir (OMNICEF) 300 mg capsule [...] 07/31/19 3:48 PM CDT 025 Active Insulin [place], Disposable, (TechLITE Pen Needle) 31 gauge x 5/16 Needle USE WITH INSULIN PEN 100 Each 08/20/19 25 6:21 PM CDT 025 Active metOLazone (ZAROXOLYN) 2.5 mg tablet Take 1 Tablet (2.5 mg) by mouth 1 time daily as needed for swelling. 90 Tablet 08/20/19 6:21 PM CDT 025 Active diazePAM (VALIUM) 10 mg tablet Take 1 Tablet (10 mg) by mouth 3 times daily as needed for anxiety. 84 Tablet 08/24/19 7:32 PM CDT 025 Active insulin lispro (HumaLOG,ADMEL OG) 100 unit/mL pen syringe INJECT 14 UNITS WITH MEALS 15 mL 2 08/24/19 25 7:32 PM CDT 025 Active ergocalciferol (Vitamin D2) 50,000 unit capsule Take 1 Capsule (50,000 Units) by mouth every 7 days. 13 Capsule 08/24/19 25 7:32 PM CDT 025 Active insulin glargine-yfgn 100 unit/mL pen syringe Inject 60 Units by subcutaneous injection daily. 15 mL 025 Active insulin glargine (Lantus Solostar U-100 Insulin) 100 unit/mL pen syringe Inject 60 units under the skin once daily 15 mL 08/24/19 25 7:32 PM CDT 025 Active diazePAM (VALIUM) 10 mg tablet Take 1 tablet by mouth three times daily as needed for anxiety 84 Tablet 09/21/19 25 7:11 PM CDT 025 Active ergocalciferol (Vitamin D2) 50,000 unit capsule Take 1 Capsule (50,000 Units) by mouth every 7 days. 13 Capsule 06/14/19 25 1:17 PM CDT 025 2024 Discontinued(R eorder) insulin glargine (Lantus Solostar U-100 Insulin) 100 unit/mL pen syringe Inject 60 units under the skin once daily 15 mL 07/01/19 25 2:32 PM CDT 025 2024 Discontinued insulin glargine [...] Flex Sig/CT Colonography Q 5 years 2019 DIABETES HBA1C Q 6 MONTHS 01/21/2024 07/21/2023 ZOSTER VACCINE (1 of 2) 2024 INFLUENZA VACCINE (#1) 2024 03/10/2010 Insurance RX [employer] (INTERNAL) [facility] RX [employer] Member Subscriber Plan / Payer (Ef fective 2024-Present) Name:Joann Tavares Relation to Subscriber:Self Name:Chaitanya Joann Zimmerman Subscriber ID:Not on file Payer ID:Not on file Type:Not on file Address: [address] [employer]
--- OUTSIDE RECORDS SUMMARY | 2024-09-21 16:31 | XMS_ITS ---
Author Organization [facility] Address [address] [place] [phone] Care Team Providers Care Prosthetic Dentist Name Role Phone Kelvin MEMBRENO, Andres Primary Care Provider Rudy Moses Unavailable [phone] ALLERGIES Allergen (clinical drug ingredient) Drug/Non Drug [...] for 30 day(s) Unknown Vitamin D (Ergocalciferol) 20918 UNIT 1 capsule Orally Once a week [...] smoker Encounters Encounter Location Date Provider Diagnosis [facility] [id number] 06/23/2023 Rudy Veloz Acute kidney failure , [...] has questioNs re Ozempic,pt advised to see newspaper photo editor re Ozempic and obesity/DM. Clinically appears euvlemic [...] has questioNs re Ozempic,pt advised to see newspaper photo editor re Ozempic and obesity/DM. Clinically appears euvlemic [...] has questioNs re Ozempic,pt advised to see newspaper photo editor re Ozempic and obesity/DM. Clinically appears euvlemic [...] has questioNs re Ozempic,pt advised to see newspaper photo editor re Ozempic and obesity/DM. Clinically appears euvlemic [...] has questioNs re Ozempic,pt advised to see newspaper photo editor re Ozempic and obesity/DM. Clinically appears euvlemic [...] has questioNs re Ozempic,pt advised to see newspaper photo editor re Ozempic and obesity/DM. Clinically appears euvlemic [...] has questioNs re Ozempic,pt advised to see newspaper photo editor re Ozempic and obesity/DM. Clinically appears euvlemic [...] has questioNs re Ozempic,pt advised to see newspaper photo editor re Ozempic and obesity/DM. Clinically appears euvlemic [...] has questioNs re Ozempic,pt advised to see newspaper photo editor re Ozempic and obesity/DM. Clinically appears euvlemic [...] has questioNs re Ozempic,pt advised to see newspaper photo editor re Ozempic and obesity/DM. Clinically appears euvlemic [...] ORAL CAVITY: mucosa moist LAB SUMMARY: ///// [id number] [id number] [id number] [id number] [id number] PO4 4.55.4 Albumin 2.833.1 [id number] EGFR [id number] Hgb8.5 8.49.19.8 Hct26.6 26.127.429.4 WBC9.9 119.48 [id number] Vit D 22.2 20.4 Iron 61 67 [...] for last 5-6 months,stopped recently. Pt states deportation officer started her on Kerrendia aling with Veltassa. Presenting symptoms Patient reported As above.
[2024-09-21 16:44] LABS: Hematocrit 25.2 % (37.0-47.0); Hemoglobin 8.2 g/dL (12.0-15.0); Mean Corpuscular HGB Conc 32.5 g/dl (32-36); Mean Corpuscular Hemoglobin 27.2 pg (26-34); Mean Corpuscular Volume 83.7 fl (80-100); Platelet Count Result 357 k/mm3 (150-375); Red Blood Count 3.01 M/mm3 (4.2-5.4); White Blood Count 8.6 K/mm3 (4.5-10.0)
[2024-09-21 16:56] LABS: Albumin Level 3.3 g/dL (3.5-5.1); Anion Gap 9 mmol/L (4-12); Blood Urea Nitrogen 66 mg/dL (7-17); Calcium 9.0 mg/dL (8.4-10.2); Carbon Dioxide 22 mmol/L (22-30); Chloride 105 mmol/L (98-107); Estimated Glomerular Filt Rate 13; Glucose 195 mg/dL (65-110); Potassium 4.6 mmol/L (3.4-5.0); Sodium 136 mmol/L (137-145)
--- OUTSIDE RECORDS SUMMARY | 2024-09-21 17:23 | XMS_ITS | Clinical Summary ---
Author Organization [facility] Address [address] [place] [address] Phone Care Team Providers Care Topographical Field Assistant Name Role Phone Matias Warren MD Primary Care Provider [phone] Allergies Active Allergy Reactions Criticality Noted Date [...] Recently Relevant to Health Maintenance Insurance MEDICARE [facility] Care Teams Topographical Field Assistant Relationship Specialty Start Date End Date Matias Warren MD [address] [place] [id number] PCP - General Family Medicine 07/09/23
--- OUTSIDE RECORDS SUMMARY | 2024-09-21 17:23 | XMS_ITS | Continuity of Care Document ---
Author Organization [facility] Address [address] [place] [address] Phone Care Team Providers Care Cleaning Custodian Name Role Phone Rocky Spence MD Unavailable [...] Copied on Encounter OFFICE/OUTPA TIENT VISIT, EST [facility], [address] [facility] [place], [address], tel:[phone] [facility] DM (chief complaint)s leep apnea1 (chief complaint)p roteinuria1 (chief complaint)l ow iron (chief complaint)a nxiety1 (chief complaint) Type 2 diabetes mellitus with diabetic nephropathyEssenti al (primary) hypertensionSleep apneaBody mass index (BMI) 50-59.9 , adult 7 Jordy Hidalgo. [address], [place], [place], [address] , [place]. tel:[phone] Referring Provider: Rocky Spence [address], [place], [place], [address]. tel:[phone] [facility], [address] [place], [address], [place] tel:[phone] [facility] No Information 7 Jordy Hidalgo. [address], [place], [place], [address] , [place]. tel:[phone] OFFICE/OUTPA TIENT VISIT, EST [facility], [address] [place] [address], [place] tel:[phone] [facility] DM1 (chief complaint)H TN (chief complaint)a neity1 (chief complaint)o beisty1 (chief complaint) Type 2 diabetes mellitus without complicationsEssen tial (primary) hypertensionBody mass index (BMI) 50-59.9 , adultAnxiolytic dependence Fercho- 7 Jordy Soto [address], [place], [place], [address] , [place]. tel:[phone] [facility], [address], [place], [place], [address], [place] tel:[phone] [facility] No Information 7 Jordy Soto [address], [place], [place], [address] , [place]. tel:[phone] OFFICE/OUTPA TIENT VISIT, [facility] [place], [address], [place], [place], [address], [place] tel:[phone] [facility] HTN (chief complaint)s leep apnea1 (chief complaint)a nxiety1 (chief complaint)D M (chief complaint) Sleep apneaEssential (primary) hypertensionType 2 diabetes mellitus without complicationsAnxio lytic dependence 7 Jordy Soto [address], [place], [place], [address] , [place]. tel:[phone] [facility], [address], [place], [place], [address], [place] tel:[phone] [facility] No Information 7 Jordy Soto [address], [place], [place], [address] , [place]. tel:[phone] OFFICE/OUTPA TIENT VISIT, [facility] [place], [address], [place], [place], [address], [place] tel:[phone] [facility] DM (chief complaint)H TN (chief complaint)a nxiety1 (chief complaint)a nemia1 (chief complaint) Type 2 diabetes mellitus without complicationsAnxio lytic dependenceEssentia l (primary) hypertensionBody mass index (BMI) 50-59.9 , adult Fe- 7 Jordy Soto [address], [place], [place], [address] , [place]. tel:[phone] Referring Provider: Wilfred [address], [place], [place], [address]. tel:[phone] OFFICE/OUTPA TIENT VISIT, EST [facility], [address], [place], [place], [address], [place] tel:[phone] [facility] HTN (chief complaint)a nxiety1 (chief complaint)D M (chief complaint) Essential (primary) hypertensionType 2 diabetes mellitus without complicationsAnxio lytic dependenceBody mass index (BMI) 50-59.9 , adult Feb- 6 Jordy Hidalgo. [address], [place], [place], [address] , [place]. [phone] Referring Provider: Wilfred [address], [place], [place], [address]. tel:[phone] PREV VISIT, EST, AGE 40-64 [facility], [address], [place], [place], [address], [place] tel:[phone] [facility] PHysical (chief complaint) Encntr for general adult medical exam w/o abnormal findings 6 Jordy Hidalgo. [address], [place], [place], [address] , [place]. [phone] Referring Provider: Wilfred [address], [place], [place], [address]. tel:[phone] OFFICE/OUTPA TIENT VISIT, EST [facility], [address], [place], [place], [address], [place] tel:[phone] [facility] DM (chief complaint)H TN (chief complaint)a nxiety1 (chief complaint)i silvino deficiecy (chief complaint) Iron deficiencyEssentia l (primary) hypertensionAnxiol ytic dependenceType 2 diabetes mellitus without complications 0 6 Jordy Hidalgo. [address], [place], [place], [address] , [place]. [phone] [facility], [address], [place], [place], [address], [place] tel:[phone] [facility] No Information 6 Jordy Hidalgo. [address], [place], [place], [address] , [place]. tel:[phone] OFFICE/OUTPA TIENT VISIT, [facility] [place], [address], [place], [place], [address], [place] tel:[phone] [facility] HTN (chief complaint)D M (chief complaint)a nixety1 (chief complaint) Type 2 diabetes mellitus without complicationsEssen tial (primary) hypertensionAnxiol ytic dependence 6 Jordy Hidalgo. [address], [place], [place], [address] , [place]. [phone] Referring Provider: Wilfred [address], [place], [place], [address]. tel:[phone] OFFICE/OUTPA TIENT VISIT, [facility] [place], [address], [place], [place], [address], [place] tel:[phone] [facility] DM (chief complaint)a nxiety1 (chief complaint)H TN (chief complaint) Type 2 diabetes mellitus without complicationsAnxio lytic dependenceEssentia l (primary) hypertension 6 Jordy Hidalgo. [address], [place], [place], [address] , [place]. [phone] Referring Provider: Wilfred [address], [place], [place], [address]. tel:[phone] OFFICE/OUTPA TIENT VISIT, [facility] [place], [address], [place], [place], [address], [place] tel:[phone] [facility] HTN (chief complaint)D M (chief complaint)a nxiety1 (chief complaint) Essential (primary) hypertensionType 2 diabetes mellitus without complicationsAnxio lytic dependence 6 Jordy Hidalgo. [address], [place], [place], [address] , [place]. tel:[phone] Referring Provider: Wilfred [address], [place], [place], [address]. tel:[phone] OFFICE/OUTPA TIENT VISIT, [facility] [place], [address], [place], [place], [address], [place] tel:[phone] [facility] DM (chief complaint)i silvino deficiency (chief complaint)p roteinuria (chief complaint)H TN (chief complaint) Type 2 diabetes mellitus without complicationsProte inuriaIron deficiencyEssentia l (primary) hypertension 6 Jordy Hidalgo. [address], [place], [place], [address] , [place]. tel:[phone] Referring Provider: Wilfred [address], [place], [place], [address]. tel:[phone] OFFICE/OUTPA TIENT VISIT, [facility] [place], [address], [place], [place], [address], [place] tel:[phone] [facility] DM (chief complaint)a nxiety1 (chief complaint)H TN (chief complaint) Type 2 diabetes mellitus without complicationsAnxio lytic dependenceEssentia l (primary) hypertensionTachyc ardia 6 Jordy Hidalgo. [address], [place], [address] , [place]. [phone] Referring Provider: Wilfred Lopez [address], [place], [place], [address]. tel:[phone] OFFICE/OUTPA TIENT VISIT, [facility] [place], [address], [place], [place], [address], [place] tel:[phone] [facility] HTN1 (chief complaint)d M (chief complaint)a nxiety1 (chief complaint) Type 2 diabetes mellitus without complicationsEssen tial (primary) hypertensionAnxiol ytic dependence 6 Jordy Hidalgo. [address], [place], [place], [address] , [place]. tel:[phone] Referring Provider: Wilfred [address], [place], [place], [address]. tel:[phone] OFFICE/OUTPA TIENT VISIT, [facility] [place], [address], [place], [place], [address], [place] tel:[phone] [facility] HTN (chief complaint)D M (chief complaint)a nxiety1 (chief complaint) Type 2 diabetes mellitus without complicationsAnxio lytic dependenceEssentia l (primary) hypertensionEncoun ter for oth screening for malignant neoplasm of breast 6 Jordy Hidalgo. [address], [place], [place], [address] , [place]. [phone] Referring Provider: Wilfred Lopez [facility], [place], [place], [address]. tel:[phone] OFFICE/OUTPA TIENT VISIT, [facility] [place], [address], [place], [place], [address], [place] tel:[phone] [facility] HTN1 (chief complaint)D M1 (chief complaint)A nxiety1 (chief complaint)S ick1 (chief complaint) Type 2 diabetes mellitus without complicationsEssen tial (primary) hypertensionAcute upper respiratory infection, unspecifiedAnxioly tic dependence 5 Jordy Hidalgo. [address], [place], [place], [address] , [place]. [phone] Referring Provider: Wilfred Lopez [facility] A, [place], [place], [address]. tel:[phone] OFFICE/OUTPA TIENT VISIT, [facility] [place], [address], [place], [place], [address], [place] tel:[phone] [facility] HTN1 (chief complaint)D M1 (chief complaint)a nxiety1 (chief complaint)n oncompliant (chief complaint)c hest pain1 (chief complaint) Essential (primary) hypertensionType 2 diabetes mellitus without complications 5 Jordy Soto [address], [place], [place], [address] , [place]. tel:[phone] Referring Provider: Wilfred [address], [place], [place], [address]. tel:[phone] OFFICE/OUTPA TIENT VISIT, [facility] [place], [address], [place], [place], [address], tel:[phone] [facility] DM1 (chief complaint)A nxiety1 (chief complaint)H TN1 (chief complaint)s leep apnea1 (chief complaint) Dietary surveillance and counselingType 2 diabetes mellitus w/o complicationEssent ial (primary) hypertensionOther sleep apnea 5 Jordy Hidalgo. [address], [place], [place], [address] , [place]. tel:[phone] Referring Provider: [address], [place], [place], [address]. tel:[phone] OFFICE/OUTPA TIENT VISIT, [facility] [place], [address] [place], [address], [place] tel:[phone] [facility] DM (chief complaint)H TN (chief complaint)a nxiety (chief complaint) Dietary surveillance and counselingBrittle diabetesUnspecifie d essential hypertensionCurren t use of insulin 5 Jordy Soto [address], [place], [place], [address] , [place]. tel:[phone] Referring Provider: [address], [place], [place], [address]. tel:[phone] OFFICE/OUTPA TIENT VISIT, [facility] [place], [address] [place], [address], [place] tel:[phone] [facility] HTN (chief complaint)D M (chief complaint)s leep apnea (chief complaint) Dietary surveillance and counselingUnspecif ied essential hypertensionUnspec ified sleep apneaBrittle diabetesBMI 50.0 to 59.9 5 Jordy Soto [address], [place], [place], [address] , [place]. tel:[phone] Referring Provider: Rocky Spence, [address], [place], [place], [address]. tel:[phone] OFFICE/OUTPA TIENT VISIT, [facility] [place], [address], [place], [place], [address], [place] tel:[phone] [facility] fatty liver (chief complaint)D M (chief complaint)H TN (chief complaint) Dietary surveillance and counselingUnspecif ied essential hypertensionOther specified disorders of liverBrittle diabetes 5 Jordy Hidalgo. [address], [place], [place], [address] , [place]. tel:[phone] Referring Provider: Rocky Spence, [address], [place], [place], [address]. tel:[phone] [facility], [address], [place], [place], [address], [place] tel:[phone] [facility] No Information 5 Jordy Hidalgo. [address], [place], [place], [address] , [place]. tel:[phone] OFFICE/OUTPA TIENT VISIT, [facility] [place], [address], [place], [place], [address], [place] tel:[phone] [facility] Anxiety (chief complaint)D M (chief complaint) Dietary surveillance and counselingBrittle diabetesBlood pressure elevated 5 Jordy Hidalgo. [address], [place], [place], [address] , [place]. tel:[phone] Referring Provider: Rocky Spence, [address], [place], [place], [address]. tel:[phone] OFFICE/OUTPA TIENT VISIT, [facility] [place], [address], [place], [place], [address], [place] tel:[phone] [facility] sleep apnea (chief complaint)A nxeity (chief complaint)D M (chief complaint) Dietary surveillance and counselingUnspecif ied sleep apneaBrittle diabetesUnspecifie d disorder of liver 5 Jordy Hidalgo. [address], [place], [place], [address] , [place]. tel:[phone] Referring Provider: Wilfred [address], [place], [place], [address]. tel:[phone] OFFICE/OUTPA TIENT VISIT, [facility] [place], [address], [place], [place], [address], [place] tel:[phone] [facility] DM (chief complaint)s leep apnea (chief complaint)a nxiety (chief complaint) Dietary surveillance and counselingDiabetes Mellitus Type 2, UncomplicatedSleep ApneaUnspecified disorder of liver 5 Jordy Hidalgo. [address], [place], [place], [address] , [place]. [phone] Referring Provider: Wilfred [address], [place], [place], [address]. tel:[phone] OFFICE/OUTPA TIENT VISIT, [facility] [place], [address], [place], [place], [address], [place] tel:[phone] [facility] DM (chief complaint)H TN (chief complaint)s leep apnea (chief complaint)L FT (chief complaint) Dietary surveillance and counselingDiabetes Mellitus Type 2, UncomplicatedHyper tension, UnspecifiedUnspeci fied disorder of liverSleep Apnea 5 Jordy Hidalgo. [address], [place], [place], [address] , [place]. [phone] Referring Provider: Wilfred [address], [place], [place], [address]. tel:[phone] OFFICE/OUTPA TIENT VISIT, [facility] [place], [address], [place], [place], [address], [place] tel:[phone] [facility] anxiety (chief complaint)D M (chief complaint) Dietary surveillance and counselingDiabetes Mellitus Type 2, UncomplicatedSleep ApneaSedative, hypnotic or anxiolytic dependence, unspecified Fe 5 Jordy Hidalgo. [address], [place], [place], [address] , [place]. [phone] Referring Provider: Rocky Spence, [address], [place], [place], [address]. tel:[phone] OFFICE/OUTPA TIENT VISIT, [facility] [place], [address], [place], [place], [address], [place] [phone] [facility] DM (chief complaint)a nxiety (chief complaint)H TN (chief complaint)s leep apnea (chief complaint) Dietary surveillance and counselingDiabetes Mellitus, Adult Onset, UncontrolledHypert ension, UnspecifiedSleep Apnea 5 Jordy Hidalgo. [address], [place], [place], [address] , [place]. tel:[phone] Referring Provider: Wilfred Lopez [address], [place], [place], [address]. tel:[phone] OFFICE/OUTPA TIENT VISIT, [facility] [place], [address], [place], [place], [address], [place] tel:[phone] [facility] DM (chief complaint)s leep apnea (chief complaint)a nxiety (chief complaint) Dietary surveillance and counselingDiabetes Mellitus Type 2, UncomplicatedSleep ApneaCentral hearing lossHypertension, Unspecified 4 Jordy Hidalgo. [address], [place], [place], [address] , [place]. tel:[phone] Referring Provider: Wilfred Lopez [address], [place], [place], [address]. tel:[phone] OFFICE/OUTPA TIENT VISIT, [facility] [place], [address], [place], [place], [address], [place] tel:[phone] [facility] DM (chief complaint)l ow iron (chief complaint)a nxiety (chief complaint) AnemiaHypertension , UnspecifiedDiabete s Mellitus, Adult Onset, UncontrolledDietar y surveillance and counseling 4 Jordy Hidalgo. [address], [place], [place], [address] , . tel:[phone] Referring Provider: Rocky Spence, [address], [place], [place], [address]. tel:[phone] OFFICE/OUTPA TIENT VISIT, [facility] [place], [address], [place], [place], [address], [place] tel:[phone] [facility] finger infection (chief complaint)a nxiety (chief complaint)D M (chief complaint) Dietary surveillance and counselingDiabetes Mellitus, Adult Onset, UncontrolledOnychi a and paronychia of fingerSleep ApneaHypertension, Unspecified 4 Jordy Hidalgo. [address], [place], [place], [address] , . tel:[phone] Referring Provider: Wilfred Lopez [address], [place], [place], [address]. tel:[phone] OFFICE/OUTPA TIENT VISIT, [facility] [place], [address] [place], [address], [place] tel:[phone] [facility] headache (chief complaint)a nxiety (chief complaint)s leep apnea (chief complaint)t innitus (chief complaint) Dietary surveillance and counselingHeadache Sleep ApneaCentral hearing loss 4 Jordy Hidalgo. [address], [place], [place], [address] , [place]. tel:[phone] Referring Provider: Wilfred Lopez [address], [place], [place], [address]. tel:[phone] OFFICE/OUTPA TIENT VISIT, [facility] [place], [address], [place], [place], [address], [place] tel:[phone] [facility] DM (chief complaint)a nxiety (chief complaint)h and numbness (chief complaint) Dietary surveillance and counselingDiabetes Mellitus Type 2, UncomplicatedDistu rbance of skin sensationCervicalg ia 4 Jordy Hidalgo. [address], [place], [place], [address] , [place]. tel:[phone] Referring Provider: Wilfred Lopez [address], [place], [place], [address]. tel:[phone] OFFICE/OUTPA TIENT VISIT, [facility] [place], [address], [place], [place], [address], [place] tel:[phone] [facility] DM (chief complaint)H TN (chief complaint)a nxiety (chief complaint)d izziness (chief complaint)s leep apnea (chief complaint) Diabetes Mellitus Type 2, UncomplicatedVerti goHypertension, UnspecifiedSleep Apnea 4 Jordy Hidalgo. [address], [place], [address] , . tel:[phone] Referring Provider: Wilfred Lopez [address], [place], [place], [address]. tel:[phone] OFFICE/OUTPA TIENT VISIT, [facility] [place], [address] [place], [address], [place] tel:[phone] [facility] DM (chief complaint)a nxiety (chief complaint)H TN (chief complaint) Dietary surveillance and counselingDiabetes Mellitus, Adult Onset, UncontrolledHypert ension, Unspecified 4 Jordy Hidalgo. [address], [place], [place], [address] , [place]. tel:[phone] Referring Provider: Wilfred Lopez [address], [place], [place], [address]. tel:[phone] OFFICE/OUTPA TIENT VISIT, [facility] [place], [address], [place], [place], [address], [place] tel:[phone] [facility] Tinnitus (chief complaint)a nxiety (chief complaint)D M (chief complaint) Tinnitus, unspecifiedVertigo Diabetes Mellitus Type 2, UncomplicatedDieta ry surveillance and counseling 4 Jordy Hidalgo. [address], [place], [place], [address] , . tel:[phone] Referring Provider: Wilfred [address], [place], [place], [address]. tel:[phone] OFFICE/OUTPA TIENT VISIT, [facility] [place], [address], [place], [place], [address], tel:[phone] [facility] DM (chief complaint)H TN (chief complaint)a nxiety (chief complaint) Dietary surveillance and counselingDiabetes Mellitus Type 2, UncomplicatedHyper tension, Unspecified 4 Jordy Hidalgo. [address], [place], [place], [address] , [place]. tel:[phone] Referring [facility]: [facility] [place], [place], [address]. tel:[phone] OFFICE/OUTPA TIENT VISIT, [facility] [place], [address], [place], [place], [address], [place] tel:[phone] [facility] shingle (chief complaint)A nxiety (chief complaint)S inus (chief complaint)D M (chief complaint) Dietary surveillance and counselingHerpes zoster without mention of complicationSinusi tis, AcuteTinnitus, unspecifiedDiabete s Mellitus, Adult Onset, Uncontrolled 4 Jordy Hidalgo. [address], [place], [place], [address] , [place]. tel:[phone] Referring Provider: Wilfred Lopez [address], [place], [place], [address]. tel:[phone] OFFICE/OUTPA TIENT VISIT, [facility] [place], [address], [place], [place], [address], [place] tel:[phone] [facility] anxiety (chief complaint)e ar pain (chief complaint)b ack pain (chief complaint) Dietary surveillance and counselingDietary surveillance and counselingTinnitus , unspecifiedLumbago Otalgia, unspecified 4 Jordy Hidalgo. [address], [place], [place], [address] , [place]. tel:[phone] Referring Provider: Wilfred Lopez [address], [place], [place], [address]. tel:[phone] OFFICE/OUTPA TIENT VISIT, [facility] [place], [address], [place], [place], [address], [place] tel:[phone] [facility] HTN (chief complaint)D M (chief complaint)a nxiety (chief complaint) Dietary surveillance and counselingHyperten sarah, UnspecifiedDiabete s Mellitus, Adult Onset, Uncontrolled 4 Jordy Hidalgo. [address], [place], [place], [address] , [place]. [phone] Referring Provider: Wilfred Lopez [address], [place], [place], [address]. tel:[phone] OFFICE/OUTPA TIENT VISIT, [facility] [place], [address], [place], [place], [address], [place] tel:[phone] [facility] DM (chief complaint)a nxiety (chief complaint) Dietary surveillance and counselingHyperten saarh, UnspecifiedDiabete s Mellitus, Adult Onset, Uncontrolled 4 Jordy Hidalgo. [address], [place], [place], [address] , [place]. tel:[phone] Referring Provider: Wilfred Lopez [address], [place], [place], [address]. tel:[phone] OFFICE/OUTPA TIENT VISIT, [facility], [place], [facility], [address], [place], [place], [address], [place] tel:[phone] [facility] anxiety (chief complaint)U RI (chief complaint)D M (chief complaint) Dietary surveillance and counselingDiabetes Mellitus, Adult Onset, UncontrolledAcute upper respiratory infections of other multiple sites 3 Jordy Hidalgo. [address], [place], [place], [address] , [place]. tel:[phone] Referring Provider: Rocky Spence [address], [place], [place], [address]. tel:[phone] OFFICE/OUTPA TIENT VISIT, [facility], [place], [facility], [address], [place], [place], [address], [place] tel:[phone] [facility] HTN (chief complaint)D M (chief complaint)a nxiety (chief complaint) Dietary surveillance and counselingHyperten sarah, UnspecifiedDiabete s Mellitus, Adult Onset, Uncontrolled 3 Jordy Hidalgo. [address], [place], [place], [address] , [place]. tel:[phone] OFFICE/OUTPA TIENT VISIT, [facility], [place], [address], [place], [place], [address], [place] tel:[phone] [facility] HTN (chief complaint)a nxiety (chief complaint)f atigue (chief complaint) Dietary surveillance and counselingLumbagoH ypertension, UnspecifiedSleep Apnea 3 Jordy Hidalgo. [address], [place], [place], [address] , [place]. tel:[phone] Referring Provider: Wilfred [address], [place], [place], [address]. tel:[phone] OFFICE/OUTPA TIENT VISIT, [facility] [place], [facility], [address], [place], [place], [address], [place] tel:[phone] [facility] HTN (chief complaint)D M (chief complaint)a nxiety (chief complaint) Dietary surveillance and counselingLumbagoH ypertension, UnspecifiedDiabete s Mellitus Type 2, Uncomplicated 3 Jordy Hidalgo. [address], [place], [place], [address] , [place]. tel:[phone] Referring Provider: Wilfred [address], [place], [place], [address]. tel:[phone] OFFICE/OUTPA TIENT VISIT, [facility] [place], [facility], [address], [place], [place], [address], [place] tel:[phone] [facility] anemia (chief complaint)D M (chief complaint)a nxiety (chief complaint) AnemiaHypertension , UnspecifiedDiabete s Mellitus Type 2, UncomplicatedDieta ry surveillance and counseling 3 Jordy Hidalgo. [address], [place], [place], [address] , [place]. [phone] Referring Provider: Rocky Spence, [address], [place], [place], [address]. tel:[phone] OFFICE/OUTPA TIENT VISIT, [facility] [place], [facility], [address], [place], [place], [address], [place] tel:[phone] [facility] anemia (chief complaint)D M (chief complaint)H TN (chief complaint) AnemiaDietary surveillance and counselingDiabetes Mellitus, Adult Onset, UncontrolledHypert ension, Unspecified 3 Jordy Hidalgo. [address], [place], [place], [address] , [place]. tel:[phone] Referring Provider: Rocky Spence [address], [place], [place], [address]. tel:[phone] OFFICE/OUTPA TIENT VISIT, [facility] [place], [facility], [address], [place], [place], [address], [place] tel:[phone] [facility] anxiety (chief complaint)D M (chief complaint)b ronchitis (chief complaint) Dietary surveillance and counselingDiabetes Mellitus, Adult Onset, UncontrolledHypert ension, UnspecifiedBronchi tis, Acute 3 Jordy Soto [address], [place], [place], [address] , [place]. [phone] Referring Provider: Rocky Spence [address], [place], [place], [address]. tel:[phone] OFFICE/OUTPA TIENT VISIT, [facility] [place], [facility], [address], [place], [place], [address], [place] tel:[phone] [facility] HTN (chief complaint)a nxiety (chief complaint)s ick (chief complaint) Acute upper respiratory infections of other multiple sitesHypertension, UnspecifiedDiabete s Mellitus, Adult Onset, Uncontrolled 3 Jordy Hidalgo. [address], [place], [place], [address] , [place]. tel:[phone] Referring Provider: Rocky Spence, [address], [place], [place], [address]. tel:[phone] OFFICE/OUTPA TIENT VISIT, [facility] [place], [address], [place], [place], [address], [place] tel:[phone] [facility] HTN (chief complaint)D M (chief complaint)a nxiety (chief complaint) Dietary surveillance and counselingHyperten sarah, UnspecifiedDiabete s Mellitus, Adult Onset, Uncontrolled Jun- 3 Jordy Hidalgo. [address], [place], [place], [address] , [place]. [phone] Referring Provider: Wilfred [address], [place], [place], [address]. tel:[phone] OFFICE/OUTPA TIENT VISIT, [facility] [place], [address], [place], [place], [address], [place] tel:[phone] [facility] HTN (chief complaint)V ision chanage (chief complaint)A nemia (chief complaint) Dietary surveillance and counselingAnemiaDi abetes Mellitus, Adult Onset, UncontrolledHypert ension, UnspecifiedCarotid Artery Disease, Unilateral 3 Jordy Hidalgo. [address], [place], [place], [address] , [place]. [phone] Referring Provider: Wilfred [address], [place], [place], [address]. tel:[phone] OFFICE/OUTPA TIENT VISIT, [facility] [place], [address], [place], [place], [address], [place] tel:[phone] [facility] cough (chief complaint)H TN (chief complaint) Dietary surveillance and counselingAcute upper respiratory infections of other multiple sitesHypertension, UnspecifiedDiabete s Mellitus, Adult Onset, Uncontrolled 3 Jordy Hidalgo. [address], [place], [place], [address] , [place]. [phone] Referring Provider: Wilfred [address], [place], [place], [address]. tel:[phone] OFFICE/OUTPA TIENT VISIT, [facility] [place], [address], [place], [place], [address], [place] tel:[phone] [facility] anxiety (chief complaint)H TN (chief complaint)D M (chief complaint) Dietary surveillance and counselingHyperten sarah, UnspecifiedDiabete s Mellitus, Adult Onset, UncontrolledLumbag o 3 Jordy Hidalgo. [address], [place], [place], [address] , [place]. [phone] Referring Provider: [address], [place], [place], [address]. tel:[phone] OFFICE/OUTPA TIENT VISIT, [facility] [place], [address], [place], [place], [address], [place] tel:[phone] [facility] DM/HTN (chief complaint)a nxiety (chief complaint)a nemia (chief complaint) Dietary surveillance and counselingDiabetes Mellitus Type 2, UncomplicatedAnemi aLumbagoHypertensi on, Unspecified 2 Jordy Hidalgo. [address], [place], [place], [address] , [place]. tel:[phone] Referring Provider: Wilfred [address], [place], [place], [address]. tel:[phone] OFFICE/OUTPA TIENT VISIT, [facility] [place], [address], [place], [place], [address], tel:[phone] [facility] back pain (chief complaint)a nxiety (chief complaint)D M (chief complaint) Dietary surveillance and counselingLumbagoD iabetes Mellitus Type 2, UncomplicatedHyper tension, Unspecified 2 Jordy Hidalgo. [address], [facility] A, [place], [place], [address] , . tel:[phone] Referring Provider: Wilfred Lopez [facility] A, [place], [place], [address]. tel:[phone] OFFICE/OUTPA TIENT VISIT, [facility] [place], [address], [place], [place], [address], tel:[phone] [facility] anxiety (chief complaint)b ack pain (chief complaint)H TN (chief complaint)a nemia (chief complaint) Dietary surveillance and counselingLumbagoA nemiaHypertension, Unspecified 2 Jordy Hidalgo. [address], [place], [place], [address] , [place]. tel:[phone] Referring Provider: Wilfred Lopez [facility], [place], [place], [address]. tel:[phone] Family History Family Member Type Diagnosis Age [...] ordered Referral Referred To: Tosha Kilpatrick [address] [employer]
[address] [place], [phone] Ordered: Referrals: Tosha Kilpatrick. Evaluate and treat [...] or headache sleep apnea1 Pt has sleep entry tech ea Pt uses CPAP nightly. Pt still [...] or headache sleep apnea1 Pt has sleep entry tech ea. Pt has been using CPAP nightly [...] Mental Status Date Cognitive Assessment Orientation - [place] ed to time, place, person, situation.
--- OUTSIDE RECORDS SUMMARY | 2024-09-21 17:23 | XMS_ITS | Referral Summary ---
Author Organization [facility] Address [address] [place] [address] Care Team Providers Care Saddle Tree Stitcher Name Role Phone Matias Warren MD Primary Care Provider [phone] Allergies Active Allergy Reactions Criticality Noted Date [...] e alcohol) [facility] Utilities Answer Date Recorded In the past 12 months has Qine[employer], [employer], or water [employer] threatened to shut off services in your [...] often do you attend chur ch or shinto services? 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 Gender Identity Not on file Sexual Orientation [...] Plan of Treatment Not on file Insurance [employer] MEDICARE [facility] MEDICARE [facility]ELA C[facility] MEDICARE ADVANTAGE Advance Directives For more information, please contact: [phone] * Full Code (Latest Code Status on File) Date Activated Date Inactivated Comments 07/23/2023 3:39 PM 07/25/2023 6:34 PM Care Teams Saddle Tree Stitcher Relationship Specialty Start Date End Date Matias Warren MD [address] [place] [id number] PCP - General Internal Medicine 07/20/23
--- OUTSIDE RECORDS SUMMARY | 2024-09-21 17:23 | XMS_ITS | Clinical Summary ---
Author Organization [facility] [employer] [facility] [employer] [facility] Address [address] [address] Phone Care Team Providers Care Lighting Adviser Name Role Phone Matias Warren MD Primary Care Provider [phone] Allergies Active Allergy Reactions Criticality Noted Date [...] time each day Active ergocalciferol 1.25 MG (34100 UT) capsule Take 50,000 Units by mouth [...] 8.6(A) 8.7 - 10.7 mg/dL eGFR Non-Afr Belgian 25(L) Hemoglobin A1C 8.5(A) 4.0 - 6.0 Glucose, UA 4+ mg/dL Bilirubin, UA Negative Ketones, UA Negative Urine Specific Merrill 1.015 Blood, UA 3+ Randy/ul pH, UA [...] Relevant to Health Maintenance Insurance Medicare [facility] Care Teams Lighting Adviser Relationship Specialty Start Date End Date Matias Warren MD [address] [place] [address] PCP - General Internal Medicine 07/24/23
--- OUTSIDE RECORDS SUMMARY | 2024-09-21 17:24 | XMS_ITS | Clinical Summary ---
Author Organization [facility] Address [address] [place] [address] Care Team Providers Care Rn Ambulatory Name Role Phone Teresita Cortez MD Primary Care Provider [phone] Source Comments [facility],non-owned Affiliates and Associated Physician Practices is amultiple site organization consisting of ambulatory clinics and hospital sitesin [place], [place], [place] and [place]. This disclosure is being madepursuant to the Care Everywhere program and may not contain all information available regarding this patient. Last updated 17.[facility] Allergies Active Allergy Reactions Criticality Noted Date [...] Insurance MEDICAID - OUT OF STATE MEDICARE [facility] SELF PAY NO INSURANCE Member Subscriber Plan / Payer (Ef fective for All Dates) Name:Joann Tavares Member ID:Not on file Relation to Subscriber:Not on file Name:JOANN TAVARES Subscriber ID:Not on file (Home) Address: [facility] [place] [address] [address] Payer ID:Not on file Group ID:Not on file Type:Self Pay Address: [place], [place] Care Teams Rn Ambulatory Relationship Specialty Start Date End Date Teresita Cortez MD [address] [place] [address] [address] [place] [phone] PCP - General 05/07/19
--- OUTSIDE RECORDS SUMMARY | 2024-09-21 17:24 | XMS_ITS | Clinical Summary ---
Author Organization [facility] Address [address] [place] [address] Care Team Providers Care Motel Manager Name Role Phone Matias Warren MD Primary Care Provider [phone] Allergies Active Allergy Reactions Criticality Noted Date [...] drink = 0.6 oz pur e alcohol) [facility] Utilities Answer Date Recorded In the past [...] often do you attend chur ch or presybeterian services? 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 Gender Identity Not on file Sexual Orientation [...] [employer] MEDICARE [employer] MEDICARE [employer] [facility] MEDICARE ADVANTAGE [facility] MEDICARE Address: [address] [address] [place] [address] Advance Directives For more information, please contact: [phone] * Full Code (Latest Code Status on File) Date Activated Date Inactivated Comments 07/23/2023 3:39 PM 07/25/2023 6:34 PM Care Teams Motel Manager Relationship Specialty Start Date End Date Matias Warren MD [address] [place] [address] PCP - General Internal Medicine 07/20/23
--- OUTSIDE RECORDS SUMMARY | 2024-09-21 17:24 | XMS_ITS | Clinical Summary ---
Author Organization [facility] Address [address] [facility] [facility] Attn: Epic Prelude ADT BARRY LURISA [address] Care Team Providers Care Lozenge Maker Name Role Phone Unavailable Primary Care Provider Unavailabl e Medications amLODIPine (NORVASC) 10 mg tablet Take 1 Tablet (10 mg) by mouth daily. 90 Tablet 12/20/19 24 12:45 PM CDT 024 Active insulin glargine-yfgn 100 unit/mL vial Inject 60 units at bedtime 30 mL 2 01/29/20 24 2:26 PM SHIRT SEWER 024 Active tirzepatide (Mounjaro) 2.5 mg/0.5 mL Pen Injector Inject 1 pen injector subcutaneously once a week. 2 mL 3 02/18/20 24 1:58 PM SHIRT SEWER 024 Active ezetimibe (Zetia) 10 mg tablet Take 1 Tablet (10 mg) by mouth daily. 90 Tablet 5 02/18/20 24 1:58 PM SHIRT SEWER 024 Active torsemide (DEMADEX) 10 mg Tablet Take 1 tablet by mouth daily 90 Tablet 04/15/19 25 6:48 PM SHIRT SEWER 024 Active torsemide (DEMADEX) 20 mg tablet TAKE ONE TABLET DAILY ALONG WITH A 10 MG TO EQUAL 30 MG DAILY 30 Tablet 5 07/27/19 25 4:14 PM CDT 025 Active insulin lispro (HumaLOG,ADMEL OG) 100 unit/mL pen syringe INJECT 14 UNITS WITH MEALS 15 mL 2 04/12/19 25 3:26 PM SHIRT SEWER 025 Active Insulin Syringe-Needle U-100 (BD Insulin Syringe Ultra-Fine) 1 mL 31 gauge x 5/16 Syringe USE FOR INSULIN INJECTIONS 200 Each 04/12/19 25 3:26 PM SHIRT SEWER 025 Active ferrous sulfate 325 mg (65 mg iron) tablet Take 1 Tablet (325 mg) by mouth daily. 100 Tablet 04/12/19 25 3:26 PM SHIRT SEWER 025 Active patiromer calcium sorbitex (Veltassa) 25.2 [...] daily 30 Packet 04/12/19 25 3:26 PM SHIRT SEWER 025 Active cefdinir (OMNICEF) 300 mg capsule [...] 07/31/19 3:48 PM CDT 025 Active Insulin [place], Disposable, (TechLITE Pen Needle) 31 gauge x [...]
== END 2024-09-21 17:22 | disposition home or self-care (01) ==
LOC: ANHLAB 17:21
PROVIDERS: Visit Provider Internal Medicine Nephrology
DX: R06.00 Dyspnea, unspecified (principal); I50.9 Heart failure, unspecified; N18.5 Chronic kidney disease, stage 5; D64.9 Anemia, unspecified
CPT/HCPCS: 36415; 71046; 80069; 85027

== ENCOUNTER 2024-10-18 14:24 | Outpatient (CLI) | payer OTHER, SELFPAY ==
--- OUTSIDE RECORDS SUMMARY | 2024-10-18 14:41 | XMS_ITS | Clinical Summary ---
Author Organization [facility] Address [address] [place] [address] Care Team Providers Care Cosmetic Maker Name Role Phone Teresita Cortez MD Primary Care Provider [phone] Source Comments [facility],non-owned Affiliates and Associated Physician Practices is amultiple site organization consisting of ambulatory clinics and hospital sitesin [place], [place], [place] and [place]. This disclosure is being madepursuant to the Care Everywhere program and may not contain all information available regarding this patient. Last updated 17.[facility] Allergies Active Allergy Reactions Criticality Noted Date [...] Insurance MEDICAID - OUT OF STATE MEDICARE [facility] SELF PAY NO INSURANCE Member Subscriber Plan / Payer (Ef fective for All Dates) Name:Joann Tavares Member ID:Not on file Relation to Subscriber:Not on file Name:JOANN TAVARES Subscriber ID:Not on file (Home) Address: [facility] [place] [address] [address] Payer ID:Not on file Group ID:Not on file Type:Self Pay Address: [place], [place] Care Teams Cosmetic Maker Relationship Specialty Start Date End Date Teresita Cortez MD [address] [place] [address] 1 [place] [phone] PCP - General 05/07/19
--- OUTSIDE RECORDS SUMMARY | 2024-10-18 14:41 | XMS_ITS ---
Author Organization [facility] Address [address] [place] [id number] Care Team Providers Care Dance Hall Hostess Name Role Phone Kelvin MEMBRENO, Andres Primary Care Provider Rudy Moses Unavailable [phone] REASON FOR VISIT NO SHOW/RESCHEDULED MULTIPLE APPTS Encounters Encounter Location Date Provider Diagnosis [facility] [address] [id number] 06/24/2023 Rudy Veloz PLAN OF TREATMENT No Information
--- OUTSIDE RECORDS SUMMARY | 2024-10-18 14:41 | XMS_ITS | Clinical Summary ---
Author Organization [facility] Address [address] [place] [address] Care Team Providers Care Gas Collection System Operator Name Role Phone Matias Warren MD Primary Care Provider [phone] Allergies Active Allergy Reactions Criticality Noted Date Comments Albuterol Dizziness,Headache Low 10/01/2024 Cephalexin Hives Medium 07/26/2014 Ciprofloxacin Dapagliflozin Other (See comments) Low 12/24/2021 Other Reaction(s): yeast vaginitis Dapagliflozin Propanediol Other (See comments) Low 12/24/2021 Fluoxetine Meperidine Morphine Medications amLODIPine (NORVASC) 10 mg tablet take 1 tablet by oral route every day 0 0 11/21/19 16 Active insulin syringe-needle U-100 (INSULIN SYRINGE) 1/2 mL 30 gauge x 07/23 syringe use with insulin x1/day 1 Box 3 07/01/19 15 Active cyanocobalamin (vitamin B-12) 1,000 mcg tablet Take 1 tablet (1,000 mcg total) by mouth daily 10/10/19 23 Active folic acid (FOLVITE) 400 mcg tablet Take 1 tablet (400 mcg total) by mouth daily Active ascorbic acid, vitamin C, 500 mg capsule Take 500 mg by mouth daily Active torsemide (DEMADEX) 5 mg tablet Take 8 tablets (40 mg total) by mouth daily 12/10/19 23 Active Veltassa packet Take 1 packet (16.8 g total) by mouth daily with lunch 05/20/19 24 Active aspirin 81 mg enteric coated tablet Take 1 tablet (81 mg total) by mouth nightly Active Jardiance 25 mg tablet Take 1 tablet (25 mg total) by mouth nightly 05/21/19 24 Active ergocalciferol (VITAMIN D) 50,000 unit capsule [...] Instructions: USE DIRECTED TO CHECK BLOOD SUGAR 03/03/20 Active Dexcom G6 Transmitter device USE DIRECTED TO CHECK BLOOD SUGAR 04/29/19 24 Active ferrous sulfate 325 mg (65 mg of elemental iron) tablet Take 1 tablet (325 mg total) by mouth daily with breakfast Active Kerendia 10 mg tablet 20 mg nightly 12/11/19 Active guaiFENesin ER (MUCINEX) 600 mg 12 hr tablet Take 1 tablet (600 mg total) by mouth 2 (two) times a day for 3 days 6 tablet 07/25/19 24 Active Additional Information Patient not taking.Reported on 10/01/2024 metOLazone (ZAROXOLYN) 2.5 mg tablet Take 2 tablets (5 mg total) by mouth daily 08/08/19 24 Active insulin lispro (HumaLOG, ADMELOG) 100 unit/mL pen for injection Inject 15 Units under the skin 3 (three) times a day 07/28/19 24 Active BASAGLAR 100 unit/mL (3 mL) pen for injection Inject 20 Units under the skin 2 (two) times a day 07/31/19 24 Active carvediloL (COREG) 25 mg tablet Take 1 tablet (25 mg total) by mouth 2 (two) times a day 07/01/19 24 Active pen needle, diabetic 31 gauge x 5/16 needle Use with Insulin pen. 09/24/19 25 Active diazePAM (VALIUM) 10 mg tablet 09/21/19 25 Active ezetimibe (ZETIA) 10 mg tablet Take 1 tablet (10 mg total) by mouth daily 02/10/20 24 Active benzonatate (TESSALON) 100 mg capsuleIndicati ons:Cough Take 1 capsule (100 mg total) by mouth 3 (three) times a day as needed for cough 42 capsule 10/02/19 25 Active Dexcom G6 Sensor device as directed 06/18/19 24 025 Discontinu ed(Patient Reported) azithromycin (ZITHROMAX) 250 mg tabletIndicatio ns:Bronchitis Take 2 tabs (500 mg) by mouth today, than 1 tab (250 mg) daily for 4 days. 6 tablet 10/02/19 25 025 predniSONE (DELTASONE) 20 mg tabletIndicatio ns:Bronchitis Take 2 tablets (40 mg) by mouth daily for 5 days 10 tablet 10/02/19 25 025 Active Problems Problem Noted Date Diagnosed Date Sepsis, due to unspecified o rganism, unspecified whether acute organ dysfunction present 07/20/2023 Encounters Date Type Department Care Team Description 10/02/2024 Results Follow-Up [facility] at [address] [address] Arben Westbrook NP XR Chest Pa Lateral 2 Views 10/01/2024 3:59 PM CDT - 10/01/2024 11:59 PM CDT Hospital Encounter [facility] Radiology - Outpatient Center at [address] [address] Bronchitis Discharge Disposition: Discharge to home or self care 10/01/2024 3:15 PM CDT Office Visit [facility] at [address] [address] Maria Esther Kraft NP Bronchitis (Primary Dx); Acute cough; Fever, unspecified fever cause from Last 3 Months Surgical History Surgery Date Site/Laterality Comments OTHER [...] Years Used Date Smoking Tobacco: Former Cigarettes 2015 Smokeless Tobacco: Never Tobacco Cessation:Counseling Given: Not Answered Alcohol Use Standard Drinks/Week Comments No 0 (1 standard drink = 0.6 oz pur e alcohol) [facility] Utilities Answer Date Recorded In the past 12 months has th e electric, gas, oil, or water company threatened to shut off services in your home? No 07/23/2023 Social Connection and Isolation Panel Answer Date Recorded In a typical week, how many times do you talk on the phone with family, friends, or neighbors? More than three times a week 07/23/2023 How often do you get togethe r with friends or relatives? Once a week 07/23/2023 How often do you attend chur ch or episcopal services? Never 07/23/2023 Do you belong to any clubs o r organizations such as pentecostalism groups, unions, fraternal or athletic groups, or [...] place to sleep or slept in a alf (including now)? 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 Gender Identity Not on file Sexual Orientation Not on file Obstetrics History Last Filed Vital Signs Vital Sign Reading Time Taken Comments Blood Pressure 148/70 10/01/2024 3:15 PM CDT Pulse 83 10/01/2024 3:15 PM CDT Temperature 36.9 C (98.4 F) 10/01/2024 3:15 PM CDT Respiratory Rate 20 10/01/2024 3:15 PM CDT Oxygen Saturation 96% 10/01/2024 3:15 PM CDT Inhaled Oxygen Concentration - - Weight 139.7 kg (308 lb) 10/01/2024 3:15 PM CDT Height 162.6 cm (5' 4) 10/01/2024 3:15 PM CDT Body Mass Index 52.87 10/01/2024 3:15 PM CDT Plan of Treatment Health Maintenance Due Date Last Done Comments Breast Cancer Screening-Mammogram 1974 Cervical Cancer Screening 1974 Colon Cancer Screening-Colonoscopy 1974 Depression Screening 1974 Hepatitis C Screening 1974 Regular Well Visit/Exam 18-64 1992 Covid-19 Vaccine ( - season) 2023 06/09/2020, 05/12/2020 Zoster Vaccine (1 of 2) 2024 DTaP/Tdap/Td Vaccine (3 - Td or Tdap) 10/20/2024 10/20/2014, 10/10/2014, 03/10/2004 Influenza Vaccine (#1) 2024 , 12/06/2019, 12/03/2019, Additional history exists Hepatitis B Screening Completed 10/10/2014 Pneumococcal vaccine <65 Aged Out No longer eligible based on patient's age to complete this topic Procedures Procedure Name Priority Date/Time Associated Diagnosis Comments XR CHEST PA LATERAL 2 VIEWS Schedule SNEHA, Read SNEHA (Appt Today, Awaiting Results) 10/01/2024 4:04 PM CDT Bronchitis POC INFLUENZA A/B, COVID-19 ANTIGEN Routine 10/01/2024 3:40 PM CDT Bronchitis Acute cough Fever, unspecified fever cause POCT RAPID STREP Routine 10/01/2024 3:39 PM CDT Bronchitis Acute cough Fever, unspecified fever cause POCT RESPIRATORY SYNCYTIAL VIRUS Routine 10/01/2024 3:35 PM CDT Acute cough Fever, unspecified fever cause from Last 3 Months Results * XR Chest Pa Lateral 2 Views (10/01/2024 4:04 PM CDT) Anatomical Region Laterality Modality Body, Chest N/A Computed Radiogr aphy 10/02/2024 2:49 PM CDT Narrative 10/02/2024 2:50 PM CDT EXAM DESCRIPTION: XR CHEST PA LATERAL 2 VIEWS REASON FOR STUDY: Cough Cough x 3 weeks. Previous smoker. HTN, Diabetes controlled with meds. Stage 5 CKD. No surgery TECHNIQUE: There are 2 radiographic view(s) of the chest. COMPARISON: Prior exam 07/30/2023 and 07/20/2023 FINDINGS: LUNGS: Pulmonary vascularity appears normal. No infiltrate or effusion. Costophrenic angles are sharp. HEART/MEDIASTINUM: Cardiac silhouette normal in size. Mediastinal and hilar contours appear normal. LINES/TUBES: None. BONES: Mild spondylosis thoracic spine. IMPRESSION: No acute cardiopulmonary abnormality. THIS IS AN ELECTRONICALLY VERIFIED FINAL REPORT 10/02/2024 2:50 PM - Electronically signed by Jeff Barnett M.D. MJ: [id number] Report ID: [id number] Reading Location: [id number] Procedure Note Jeff Barnett MD - 10/02/2024 EXAM DESCRIPTION: XR CHEST PA LATERAL 2 VIEWS REASON FOR STUDY: Cough Cough x 3 weeks. Previous smoker. HTN, Diabetes controlled with meds.Stage 5 CKD. No surgery TECHNIQUE: There are 2 radiographic view(s) of the chest. COMPARISON: Prior exam 07/30/2023 and 07/20/2023 FINDINGS: LUNGS: Pulmonary vascularity appears normal. No infiltrate or effusion. Costophrenic angles are sharp. HEART/MEDIASTINUM: Cardiac silhouette normal in size. Mediastinal andhilar contours appear normal. LINES/TUBES: None. BONES: Mild spondylosis thoracic spine. IMPRESSION: No acute cardiopulmonary abnormality. THIS IS AN ELECTRONICALLY VERIFIED FINAL REPORT 10/02/2024 2:50 PM - Electronically signed by Jeff Barnett M.D. MJ: [id number] Report ID: [id number] Reading Location: [id number] Maria Esther Kraft GENERAL INSPECTOR IMG XR PROCEDURES Final Re sult * POC Influenza A/B, COVID-19 antigen (10/01/2024 3:40 PM CDT) [facility] Influenza A Ag, POC Negative Negative [facility] Influenza B Ag, POC Negative Negative [facility] COVID-19 Ag POC Presumptive Negative Presumptive Negative, Invalid [facility] Nasal 10/01/2024 3:40 PM CDT Maria Esther Kraft NP POINT OF CARE TEST ORDERAB LES Final Result [facility] [address] [place] [id number] * POCT rapid strep A (10/01/2024 3:39 PM CDT) Rapid Strep A, POC Negative Negative Swab 10/01/2024 3:39 PM CDT Maria Esther Kraft GENERAL INSPECTOR POINT OF CARE TEST ORDERAB LES Final Result * POCT respiratory syncytial virus (10/01/2024 3:35 PM CDT) RSV Rapid Ag Negative Negative, Invalid Nasopharyngeal 10/01/2024 3: 35 PM CDT Maria Esther Kraft GENERAL INSPECTOR POINT OF CARE TEST ORDERAB LES Final Result from Last 3 Months Insurance [facility] H[facility]/PPO Address: [facility] [id number] [place] [address] MEDICARE [facility] MEDICARE [facility] Member Subscriber Plan / Payer (Ef fective 2023-Present) Name:Joann Tavares Relation to Subscriber:Self Name:Joann Tavares Payer ID:[id number] (NAIC) Type:[facility] Address: [address] [place] [id number] [facility] MEDICARE [facility] Address: [address] [address] [place] [address] Advance Directives For more information, please contact: [phone] * Full Code (Latest Code Status on File) Date Activated Date Inactivated Comments 07/23/2023 3:39 PM 07/25/2023 6:34 PM Care Teams Gas Collection System Operator Relationship Specialty Start Date End Date Matias Warren MD [address] [place] [id number] PCP - General Internal Medicine 07/20/23
--- OUTSIDE RECORDS SUMMARY | 2024-10-18 14:41 | XMS_ITS | Clinical Summary ---
Author Organization [facility] Address [address] [place] [address] Phone Care Team Providers Care Contact Lens Technician Name Role Phone Matias Warren MD Primary Care Provider [phone] Allergies Active Allergy Reactions Criticality Noted Date [...] Recently Relevant to Health Maintenance Insurance MEDICARE [facility] Care Teams Contact Lens Technician Relationship Specialty Start Date End Date Matias Warren MD [address] [place] [id number] PCP - General Family Medicine 07/09/23
--- OUTSIDE RECORDS SUMMARY | 2024-10-18 14:41 | XMS_ITS | Patient Health Record ---
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 confirmed Diabetic renal disease (953818749) Problem Type 2 diabetes mellitus with diabetic neuropathy, unspecified (E11.40) Active confirmed Diabetic peripheral neuropathy associated with type 2 diabetes mellitus (8932893271901) Problem 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) Active confirmed 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 (01363945388774) Problem Obesity, unspecified (E66.9) Active confirmed Obesity (723874386) Problem Vitamin D deficiency, unspecified (E55.9) Active confirmed Vitamin D deficiency (94277284) Problem Iron deficiency anemia, unspecified (D50.9) Active confirmed Iron deficiency anemia (24137152) PLAN OF TREATMENT Pending Test Test Name [...] Insured Coverage Start Date Coverage End Date [employer] [place] [employer] [address] [place], [place] [id number] Joann Tavares Self - patient is the insured [place] [address] [place] [address] [phone] [id number] Joann Tavares Self - patient is the insured [facility] [address] [address] [place] [id number] Joann Tavares Self - patient is the [...]
--- OUTSIDE RECORDS SUMMARY | 2024-10-18 14:41 | XMS_ITS | Clinical Summary ---
Author Organization [facility] [employer] [facility] [employer] [facility] Address [address] [address] Phone Care Team Providers Care It Business Process Architect Name Role Phone Matias Warren MD Primary Care Provider [phone] Allergies Active Allergy Reactions Criticality Noted Date [...] time each day Active ergocalciferol 1.25 MG (63922 UT) capsule Take 50,000 Units by mouth [...] 8.6(A) 8.7 - 10.7 mg/dL eGFR Non-Afr [place] Island[place] 25(L) Hemoglobin A1C 8.5(A) 4.0 - 6.0 Glucose, UA 4+ mg/dL Bilirubin, UA Negative Ketones, UA Negative Urine Specific Stewart 1.015 Blood, UA 3+ Randy/ul pH, UA [...] Recently Relevant to Health Maintenance Insurance Medicare [facility] Care Teams It Business Process Architect Relationship Specialty Start Date End Date Matias Warren MD [address] [place] [phone] PCP - General Internal Medicine 07/24/23
--- OUTSIDE RECORDS SUMMARY | 2024-10-18 14:41 | XMS_ITS | Encounter Summary ---
Author Organization [facility] Healthcare Address [address] [place] [address] Care Team Providers Care Career Guidance Technician Name Role Phone Matias Warren MD Primary Care Provider [phone] Encounter Details Date Type Department Care Team ([facility] st Contact Info) Description 10/02/2024 Results Follow-Up [facility] Medical Group Convenient Care at [address] [place] [address] Arben Westbrook, AVA [address] [facility] [place] [address] XR Chest Pa Lateral 2 Views Social History Tobacco Use Types Packs/Day Years Used Date Smoking Tobacco: Former Cigarettes 2015 Smokeless Tobacco: Never Alcohol Use Standard Drinks/Week Comments No 0 (1 standard drink = 0.6 oz pur e alcohol) [facility] Utilities Answer Date Recorded In the past 12 months has [employer], gas, oil, or water [employer] threatened to shut off services in your home? No 07/23/2023 Social Connection and Isolation Panel Answer Date Recorded In a typical week, how many times do you talk on the phone with family, friends, or neighbors? More than three times a week 07/23/2023 How often do you get togethe r with friends or relatives? Once a week 07/23/2023 How often do you attend [facility] or amish services? Never 07/23/2023 Do you belong to any clubs o r organizations such as anglican groups, unions, fraternal or athletic groups, or [...] place to sleep or slept in a residential (including now)? No 07/23/2023 Personal Safety Answer [...] on file Legal Sex Female 11:36 AM THERAPIST Gender Identity Not on file Sexual Orientation Not on file documented as of this encounter Miscellaneous Notes * Result Encounter Note - West, BETY Cabrera 10/02/2024 3:49 PM CDT Patient notified. * Result Encounter Note - Christine West MA - 10/02/2024 3:27 PM CDT LVM for patient to call back. documented in this encounter Plan of Treatment Not on file documented as of this encounter Visit Diagnoses Not on filedocumented in this encounter Additional Health Concerns Infection Onset Date Last Indicated Resolved Time COVID: Suspected 10/01/2024 10/01/2024 10/02/2024 7:26 PM CDT documented as of this encounter Care Teams Career Guidance Technician Relationship Specialty Start Date End Date Matias Warren MD [address] [place] [phone] PCP - General Internal Medicine 07/20/23 documented as of this encounter
--- OUTSIDE RECORDS SUMMARY | 2024-10-18 14:42 | XMS_ITS | Clinical Summary ---
Author Organization [facility] Address [address] [facility] Attn: Epic Prelude ADT BARRY LURISA [address] Care Team Providers Care Area Director Name Role Phone Unavailable Primary Care Provider Unavailabl e Medications amLODIPine (NORVASC) 10 mg tablet Take 1 Tablet (10 mg) by mouth daily. 90 Tablet 12/20/19 24 12:45 PM CDT 024 Active insulin glargine-yfgn 100 unit/mL vial Inject 60 units at bedtime 30 mL 2 01/29/20 24 2:26 PM LIVESTOCK YARD SUPERVISOR 024 Active tirzepatide (Mounjaro) 2.5 mg/0.5 mL Pen Injector Inject 1 pen injector subcutaneously once a week. 2 mL 3 02/18/20 24 1:58 PM LIVESTOCK YARD SUPERVISOR 024 Active ezetimibe (Zetia) 10 mg tablet Take 1 Tablet (10 mg) by mouth daily. 90 Tablet 5 02/18/20 24 1:58 PM LIVESTOCK YARD SUPERVISOR 024 Active torsemide (DEMADEX) 10 mg Tablet Take 1 tablet by mouth daily 90 Tablet 04/15/19 25 6:48 PM LIVESTOCK YARD SUPERVISOR 024 Active insulin lispro (HumaLOG,ADMEL OG) 100 unit/mL pen syringe INJECT 14 UNITS WITH MEALS 15 mL 2 04/12/19 25 3:26 PM LIVESTOCK YARD SUPERVISOR 025 Active Insulin Syringe-Needle U-100 (BD Insulin Syringe Ultra-Fine) 1 mL 31 gauge x 5/16 Syringe USE FOR INSULIN INJECTIONS 200 Each 04/12/19 25 3:26 PM LIVESTOCK YARD SUPERVISOR 025 Active ferrous sulfate 325 mg (65 mg iron) tablet Take 1 Tablet (325 mg) by mouth daily. 100 Tablet 04/12/19 25 3:26 PM LIVESTOCK YARD SUPERVISOR 025 Active patiromer calcium sorbitex (Veltassa) [...] water and drink daily 30 Packet 11 04/12/19 25 3:26 PM LIVESTOCK YARD SUPERVISOR 025 Active cefdinir (OMNICEF) 300 mg capsule Take 1 Capsule (300 mg) by mouth daily at 1400 3 Capsule 05/19/19 25 6:32 PM CDT 025 Active amLODIPine (NORVASC) 10 mg tablet Take 1 Tablet (10 mg) by mouth daily. 90 Tablet 1 06/02/19 25 6:03 PM CDT 025 Active insulin lispro [...] Daily Amount: 6 Tablets 10 Tablet 07/31/19 25 3:48 PM CDT 025 Active diazePAM (VALIUM) 10 mg tablet Take 1 Tablet (10 mg) by mouth 3 times daily as needed for anxiety. 84 Tablet 08/24/19 25 7:32 PM CDT 025 Active insulin lispro (HumaLOG,ADMEL OG) 100 unit/mL pen syringe INJECT 14 UNITS WITH MEALS 15 mL 2 08/24/19 25 7:32 PM CDT 025 Active insulin glargine-yfgn 100 unit/mL pen syringe Inject 60 Units by subcutaneous injection daily. 15 mL Active diazePAM (VALIUM) 10 mg tablet Take 1 tablet by mouth three times daily as needed for anxiety 84 Tablet 09/21/19 7:11 PM CDT Active folic acid (FOLVITE) 1 mg tablet Take 1 Tablet (1 mg) by mouth daily. 90 Tablet 09/26/19 2:29 PM CDT Active Insulin [place], Disposable, (BD Ultra-Fine Short Pen Needle) 31 gauge x 5/16 Needle Use with Insulin pen. 100 Each 3 09/26/19 2:29 PM CDT Active azithromycin (ZITHROMAX) 250 mg tablet Take 2 tablets (500 mg) by mouth today, than 1 tablet (250 mg) daily for 4 days. 6 Tablet 10/02/19 5:08 PM CDT Active benzonatate (TESSALON) 100 mg capsule Take 1 capsule (100 mg total) by mouth 3 (three) times a day as needed for cough 42 Capsule Active amoxicillin-cl avulanate (AUGMENTIN) 875-125 mg tablet Take 1 Tablet by mouth every 12 hours for 7 days. 14 Tablet 10/13/19 4:58 PM CDT 025 2024 Active insulin glargine (Lantus Solostar U-100 Insulin) 100 unit/mL pen syringe Inject 60 units under the skin once daily 15 mL 2 10/16/19 6:00 PM CDT Active Blood-Glucose Sensor (Dexcom G6 Sensor) Device CHANGE DIRECTED. 3 Each Active Blood-Glucose Transmitter (Dexcom G6 Transmitter) Device CHANGE DIRECTED. 1 Each Active diazePAM (VALIUM) 10 mg tablet Take 1 Tablet (10 mg) by mouth 3 times daily as needed for anxiety. 84 Tablet Active metOLazone (ZAROXOLYN) 2.5 mg tablet Take 1 Tablet (2.5 mg) by mouth 1 time daily as needed for swelling. 90 Tablet Active ergocalciferol (Vitamin D2) 50,000 unit capsule Take 1 Capsule (50,000 Units) by mouth every 7 days. 13 Capsule Active torsemide (DEMADEX) 20 mg tablet TAKE ONE TABLET DAILY ALONG WITH A 10 MG TO EQUAL 30 MG DAILY 30 Tablet 5 07/27/19 25 4:14 PM CDT 025 2024 Discontinued Blood-Glucose Sensor (Dexcom G6 Sensor) Device CHANGE DIRECTED. 3 Each 06/02/19 6:03 PM CDT 025 2024 Discontinued Blood-Glucose Transmitter (Dexcom G6 Transmitter) Device CHANGE DIRECTED. 1 Each 06/02/19 6:03 PM CDT 025 2024 Discontinued Insulin [place], Disposable, (TechLITE Pen Needle) 31 gauge x 5/16 Needle USE WITH INSULIN PEN 100 Each 08/20/19 6:21 PM CDT 025 2024 Discontinued(R sonjaer) metOLazone (ZAROXOLYN) 2.5 mg tablet Take 1 Tablet (2.5 mg) by mouth 1 time daily as needed for swelling. 90 Tablet 08/20/19 6:21 PM CDT 025 2024 Discontinued ergocalciferol (Vitamin D2) 50,000 unit capsule Take 1 Capsule (50,000 Units) by mouth every 7 days. 13 Capsule 08/24/19 7:32 PM CDT 025 2024 Discontinued insulin glargine (Lantus Solostar U-100 Insulin) 100 unit/mL pen syringe Inject 60 units under the skin once daily 15 mL 08/24/19 7:32 PM CDT 025 2024 Discontinued torsemide (DEMADEX) 20 mg tablet TAKE ONE TABLET DAILY ALONG WITH A 10 MG TO EQUAL 30 MG DAILY 30 Tablet 09/26/19 2:29 PM CDT 025 2024 Discontinued metOLazone (ZAROXOLYN) 2.5 mg tablet Take 1 Tablet (2.5 mg) by mouth 1 time daily as needed for swelling. 90 Tablet 025 2024 Discontinued predniSONE (DELTASONE) 20 mg tablet Take 2 tablets (40 mg) by mouth daily for 5 days 10 Tablet 025 2024 Encounters Date Type Department Care Team Description 10/12/2024 External Device Data [facility] ABSTRACTION Provider, Abstract 09/22/2024 External Device Data [facility] ABSTRACTION Provider, Abstract 09/22/2024 External Device Data [facility] ABSTRACTION Provider, Abstract 08/24/2024 External Device Data [facility] ABSTRACTION Provider, [...] fective 2024-Present) Name:Joann Tavares Relation to Subscriber:Self Name:Chaitanya, Joann Zimmerman Subscriber ID:Not on file Payer ID:Not on file Type:Not on file Address: [address] [employer]
--- OUTSIDE RECORDS SUMMARY | 2024-10-18 14:42 | XMS_ITS ---
Author Organization [facility] Address [address] [place] [phone] Care Team Providers Care Digital Media Planner Name Role Phone Kelvin MEMBRENO, Andres Primary Care Provider Rudy Moses Unavailable [phone] ALLERGIES Allergen (clinical drug ingredient) Drug/Non Drug [...] for 30 day(s) Unknown Vitamin D (Ergocalciferol) 81957 UNIT 1 capsule Orally Once a week [...] smoker Encounters Encounter Location Date Provider Diagnosis [facility] [id number] 06/23/2023 Rudy Veloz Acute kidney failure , [...] has questioNs re Ozempic,pt advised to see diabetes education coordinator re Ozempic and obesity/DM. Clinically appears euvlemic [...] has questioNs re Ozempic,pt advised to see diabetes education coordinator re Ozempic and obesity/DM. Clinically appears euvlemic [...] has questioNs re Ozempic,pt advised to see diabetes education coordinator re Ozempic and obesity/DM. Clinically appears euvlemic [...] has questioNs re Ozempic,pt advised to see diabetes education coordinator re Ozempic and obesity/DM. Clinically appears euvlemic [...] has questioNs re Ozempic,pt advised to see diabetes education coordinator re Ozempic and obesity/DM. Clinically appears euvlemic [...] has questioNs re Ozempic,pt advised to see diabetes education coordinator re Ozempic and obesity/DM. Clinically appears euvlemic [...] has questioNs re Ozempic,pt advised to see diabetes education coordinator re Ozempic and obesity/DM. Clinically appears euvlemic [...] has questioNs re Ozempic,pt advised to see diabetes education coordinator re Ozempic and obesity/DM. Clinically appears euvlemic [...] has questioNs re Ozempic,pt advised to see diabetes education coordinator re Ozempic and obesity/DM. Clinically appears euvlemic [...] has questioNs re Ozempic,pt advised to see diabetes education coordinator re Ozempic and obesity/DM. Clinically appears euvlemic [...] ORAL CAVITY: mucosa moist LAB SUMMARY: ///// [id number] Creat21.91.81.61.72 [id number] K5.44.64.94.75.35.2 [id number] Hbkcvto19.310.410.48.99.69.4 PO4 4.55.4 Albumin 2.833.1 [id number] EGFR [id number] Hgb8.5 8.49.19.8 Hct26.6 26.127.429.4 WBC9.9 119.48 [id number] Vit D 22.2 20.4 Iron 61 67 [...] for last 5-6 months,stopped recently. Pt states sales systems engineer started her on Kerrendia aling with Veltassa. Presenting symptoms Patient reported As above.
[2024-10-18 14:57] LABS: Hematocrit 22.3 % (37.0-47.0); Hemoglobin 7.4 g/dL (12.0-15.0); Mean Corpuscular HGB Conc 33.2 g/dl (32-36); Mean Corpuscular Hemoglobin 28.1 pg (26-34); Mean Corpuscular Volume 84.8 fl (80-100); Platelet Count Result 297 k/mm3 (150-375); Red Blood Count 2.63 M/mm3 (4.2-5.4); White Blood Count 8.1 K/mm3 (4.5-10.0)
[2024-10-18 15:06] LABS: Albumin Level 3.0 g/dL (3.5-5.1); Anion Gap 9 mmol/L (4-12); Blood Urea Nitrogen 82 mg/dL (7-17); Calcium 8.5 mg/dL (8.4-10.2); Carbon Dioxide 21 mmol/L (22-30); Chloride 97 mmol/L (98-107); Estimated Glomerular Filt Rate 10; Glucose 414 mg/dL (65-110); Potassium 4.5 mmol/L (3.4-5.0); Sodium 127 mmol/L (137-145)
== END 2024-10-18 14:25 | disposition home or self-care (01) ==
PROVIDERS: Visit Provider Internal Medicine Nephrology
DX: E11.22 Type 2 diabetes mellitus with diabetic chronic kidney disease (principal); I12.9 Hypertensive chronic kidney disease with stage 1 through stage 4 chronic kidney disease, or unspecified chronic kidney disease; N18.5 Chronic kidney disease, stage 5; D64.9 Anemia, unspecified
CPT/HCPCS: 36415; 80069; 85027

== ENCOUNTER 2024-10-25 11:12 | Outpatient (CLI) | payer OTHER, SELFPAY ==
[2024-10-25 11:40] LABS: Hematocrit 22.6 % (37.0-47.0); Hemoglobin 7.4 g/dL (12.0-15.0); Mean Corpuscular HGB Conc 32.7 g/dl (32-36); Mean Corpuscular Hemoglobin 28.2 pg (26-34); Mean Corpuscular Volume 86.3 fl (80-100); Platelet Count Result 330 k/mm3 (150-375); Red Blood Count 2.62 M/mm3 (4.2-5.4); White Blood Count 9.6 K/mm3 (4.5-10.0)
[2024-10-25 11:58] LABS: Albumin Level 3.5 g/dL (3.5-5.1); Anion Gap 12 mmol/L (4-12); Blood Urea Nitrogen 96 mg/dL (7-17); Calcium 8.9 mg/dL (8.4-10.2); Carbon Dioxide 19 mmol/L (22-30); Chloride 101 mmol/L (98-107); Estimated Glomerular Filt Rate 10; Glucose 258 mg/dL (65-110); Potassium 3.9 mmol/L (3.4-5.0); Sodium 132 mmol/L (137-145)
[2024-10-25 11:59] LABS: Iron 48 ug/dL (37-170)
[2024-10-25 12:09] LABS: Percent Iron Saturation 12 % (20-50)
--- OUTSIDE RECORDS SUMMARY | 2024-10-25 12:34 | XMS_ITS | Clinical Summary ---
Author Organization [facility] Address [address] [place] [address] Care Team Providers Care Lead Ios Developer Name Role Phone Teresita Cortez MD Primary Care Provider [phone] Source Comments [email or web address],non-owned Affiliates and Associated Physician Practices is amultiple site organization consisting of ambulatory clinics and hospital sitesin [place], [place], [place] and [place]. This disclosure is being madepursuant to the Care Everywhere program and may not contain all information available regarding this patient. Last updated 17.[email or web address] Allergies Active Allergy Reactions Criticality Noted Date [...] Insurance MEDICAID - OUT OF STATE MEDICARE [facility] SELF PAY NO INSURANCE Member Subscriber Plan / Payer (Ef fective for All Dates) Name:Joann Tavares Member ID:Not on file Relation to Subscriber:Not on file Name:JOANN TAVARES Subscriber ID:Not on file (Home) Address: [facility] [place] [address] [address] Payer ID:Not on file Group ID:Not on file Type:Self Pay Address: [place], [place] Care Teams Lead Ios Developer Relationship Specialty Start Date End Date Teresita Cortez MD [address] [place] [address] 1 [place] [phone] PCP - General 05/07/19
--- OUTSIDE RECORDS SUMMARY | 2024-10-25 12:34 | XMS_ITS | Clinical Summary ---
Author Organization [facility] [employer] [facility] [employer] [facility] Address [address] [address] Phone Care Team Providers Care Waiter/Waitress Head Name Role Phone Matias Warren MD Primary Care Provider [phone] Allergies Active Allergy Reactions Criticality Noted Date [...] time each day Active ergocalciferol 1.25 MG (76853 UT) capsule Take 50,000 Units by mouth [...] 8.6(A) 8.7 - 10.7 mg/dL eGFR Non-Afr Kuwaiti 25(L) Hemoglobin A1C 8.5(A) 4.0 - 6.0 Glucose, UA 4+ mg/dL Bilirubin, UA Negative Ketones, UA Negative Urine Specific [place] 1.015 Blood, UA 3+ Randy/ul pH, UA [...] Relevant to Health Maintenance Insurance Medicare [facility] Care Teams Waiter/Waitress Head Relationship Specialty Start Date End Date Matias Warren MD [address] [place] [id number] PCP - General Internal Medicine 07/24/23
--- OUTSIDE RECORDS SUMMARY | 2024-10-25 12:34 | XMS_ITS ---
Author Organization [facility] Address [address] [place] [phone] Care Team Providers Care Cds Sales Advisor Name Role Phone Kelvin MEMBRENO, Andres Primary Care Provider Rudy Moses Unavailable [phone] REASON FOR VISIT NO SHOW/RESCHEDULED MULTIPLE APPTS Encounters Encounter Location Date Provider Diagnosis [facility] [address] [id number] 06/24/2023 Rudy Veloz PLAN OF TREATMENT No Information
--- OUTSIDE RECORDS SUMMARY | 2024-10-25 12:34 | XMS_ITS | Encounter Summary ---
Author Organization [facility] Address [address] [place] [address] Care Team Providers Care Custom Motorcycle Painter Name Role Phone Matias Warren MD Primary Care Provider [phone] Encounter Details Date Type Department Care Team ([facility] st Contact Info) Description 10/02/2024 Results Follow-Up [facility] Medical Group Convenient Care at [address] [place] [address] Arben Westbrook, AVA [address] [place] [address] XR Chest Pa Lateral 2 Views Social History Tobacco Use Types Packs/Day Years Used Date Smoking Tobacco: Former Cigarettes 2015 Smokeless Tobacco: Never Alcohol Use Standard Drinks/Week Comments No 0 (1 standard drink = 0.6 oz pur e alcohol) [facility] Utilities Answer Date Recorded In the past 12 months has [employer], gas, oil, or water [employer] threatened to shut off services in your home? No 07/23/2023 Social Connection and Isolation Panel Answer Date Recorded In a typical week, how many times do you talk on the phone with family, friends, or neighbors? More than three times a week 07/23/2023 How often do you get togethe r with friends or relatives? Once a week 07/23/2023 How often do you attend [facility] or synagogue services? Never 07/23/2023 Do you belong to any clubs o r organizations such as anabaptist groups, unions, fraternal or athletic groups, or [...] place to sleep or slept in a skilled nursing (including now)? No 07/23/2023 Personal Safety Answer [...] on file Legal Sex Female 11:36 AM SCIENCE TECHNICIAN Gender Identity Not on file Sexual Orientation [...] documented as of this encounter Care Teams Custom Motorcycle Painter Relationship Specialty Start Date End Date Matias Warren MD [address] [place] [id number] PCP - General Internal Medicine 07/20/23 documented as of this encounter
--- OUTSIDE RECORDS SUMMARY | 2024-10-25 12:34 | XMS_ITS | Clinical Summary ---
Author Organization [facility] Address [address] [place] [address] Phone Care Team Providers Care Jailkeeper Name Role Phone Matias Warren MD Primary Care Provider [phone] Allergies Active Allergy Reactions Criticality Noted Date [...] Recently Relevant to Health Maintenance Insurance MEDICARE [facility] Care Teams Jailkeeper Relationship Specialty Start Date End Date Matias Warren MD [address] [place] [id number] PCP - General Family Medicine 07/09/23
--- OUTSIDE RECORDS SUMMARY | 2024-10-25 12:34 | XMS_ITS | Patient Health Record ---
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 confirmed Diabetic renal disease (766222798) Problem Type 2 diabetes mellitus with diabetic neuropathy, unspecified (E11.40) Active confirmed Diabetic peripheral neuropathy associated with type 2 diabetes mellitus (8102323481014) Problem 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) Active confirmed 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 (64636710473682) Problem Obesity, unspecified (E66.9) Active confirmed Obesity (697257660) Problem Vitamin D deficiency, unspecified (E55.9) Active confirmed Vitamin D deficiency (82400377) Problem Iron deficiency anemia, unspecified (D50.9) Active confirmed Iron deficiency anemia (59640767) PLAN OF TREATMENT Pending Test Test Name [...] Insured Coverage Start Date Coverage End Date [employer] [address] [place], [place] [id number] Joann Tavares Self - patient is the insured [place] [address] [place] [address] [id number] Joann Tavares Self - patient is the insured [facility] [address] [address] [place] [id number] Joann Tavares Self - patient is the [...]
--- OUTSIDE RECORDS SUMMARY | 2024-10-25 12:34 | XMS_ITS ---
Author Organization [facility] Address [address] [place] [phone] Care Team Providers Care Agency Service Coordinator Name Role Phone Kelvin MEMBRENO, Andres Primary Care Provider Rudy Moses Unavailable [phone] ALLERGIES Allergen (clinical drug ingredient) Drug/Non Drug [...] for 30 day(s) Unknown Vitamin D (Ergocalciferol) 50266 UNIT 1 capsule Orally Once a week [...] smoker Encounters Encounter Location Date Provider Diagnosis [facility] [id number] 06/23/2023 Rudy Veloz Acute kidney failure , [...] has questioNs re Ozempic,pt advised to see utility bagger re Ozempic and obesity/DM. Clinically appears euvlemic [...] has questioNs re Ozempic,pt advised to see utility bagger re Ozempic and obesity/DM. Clinically appears euvlemic [...] has questioNs re Ozempic,pt advised to see utility bagger re Ozempic and obesity/DM. Clinically appears euvlemic [...] has questioNs re Ozempic,pt advised to see utility bagger re Ozempic and obesity/DM. Clinically appears euvlemic [...] has questioNs re Ozempic,pt advised to see utility bagger re Ozempic and obesity/DM. Clinically appears euvlemic [...] has questioNs re Ozempic,pt advised to see utility bagger re Ozempic and obesity/DM. Clinically appears euvlemic [...] has questioNs re Ozempic,pt advised to see utility bagger re Ozempic and obesity/DM. Clinically appears euvlemic [...] has questioNs re Ozempic,pt advised to see utility bagger re Ozempic and obesity/DM. Clinically appears euvlemic [...] has questioNs re Ozempic,pt advised to see utility bagger re Ozempic and obesity/DM. Clinically appears euvlemic [...] has questioNs re Ozempic,pt advised to see utility bagger re Ozempic and obesity/DM. Clinically appears euvlemic [...] ORAL CAVITY: mucosa moist LAB SUMMARY: ///// [id number] Creat21.91.81.61.72 [id number] K5.44.64.94.75.35.2 [id number] Fftldic03.310.410.48.99.69.4 PO4 4.55.4 Albumin 2.833.1 [id number] EGFR [id number] Hgb8.5 8.49.19.8 Hct26.6 26.127.429.4 WBC9.9 119.48 XUT079 [id number] Vit D 22.2 20.4 Iron 61 67 [...] for last 5-6 months,stopped recently. Pt states director of diagnostic imaging started her on Kerrendia aling with Veltassa. Presenting symptoms Patient reported As above.
--- OUTSIDE RECORDS SUMMARY | 2024-10-25 12:34 | XMS_ITS | Clinical Summary ---
Author Organization [facility] Address [address] [place] [address] Care Team Providers Care Doctor Of Optometry Name Role Phone Matias Warren MD Primary Care Provider [phone] Allergies Active Allergy Reactions Criticality Noted Date [...] Department Care Team Description 10/02/2024 Results Follow-Up [facility] Medical Group Convenient Care at [address] [address] Arben Westbrook NP XR Chest Pa Lateral 2 Views 10/01/2024 3:59 PM CDT - 10/01/2024 11:59 PM CDT Hospital Encounter [facility] Radiology - Outpatient Center at [address] [address] Bronchitis Discharge Disposition: Discharge to home or self care 10/01/2024 3:15 PM CDT Office Visit [facility] Medical Group Convenient Care at [address] [address] Maria Esther Kraft NP Bronchitis (Primary Dx); [...] often do you attend chur ch or mosque services? 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 MJ: SISSY Report ID: [id number] Reading Location: [id number] Procedure Note Jeff Barnett MD - 10/02/2024 [...] Jeff Barnett M.D. MJ: SISSY Report ID: [id number] Reading Location: [id number] Maria Esther Kraft [facility] IMG XR PROCEDURES Final Re sult * POC Influenza A/B, COVID-19 antigen (10/01/2024 3:40 PM CDT) [facility] Influenza A Ag, POC Negative Negative [facility] Influenza B Ag, POC Negative Negative [facility] COVID-19 Ag POC Presumptive Negative Presumptive Negative, Invalid [facility] Nasal 10/01/2024 3:40 PM CDT Maria Esther Kraft NP POINT OF CARE TEST ORDERAB LES Final Result [facility] [address] [place] [id number] * POCT rapid strep A (10/01/2024 3:39 PM CDT) Rapid Strep A, POC Negative Negative Swab 10/01/2024 3:39 PM CDT Maria Esther Kraft [employer] POINT OF CARE TEST ORDERAB LES Final Result * POCT respiratory syncytial virus (10/01/2024 3:35 PM CDT) RSV Rapid Ag Negative Negative, Invalid Nasopharyngeal 10/01/2024 3: 35 PM CDT Maria Esther Kraft [employer] POINT OF CARE TEST ORDERAB LES Final Result from Last 3 Months Insurance [facility] MEDICARE [facility] MEDICARE [facility] Member Subscriber Plan / Payer (Ef fective 2023-Present) Name:Joann Tavares Relation to Subscriber:Self Name:Joann Tavares Payer ID:[id number] (NAIC) Type:[facility] Address: [address] [place] [id number] [facility] MEDICARE [facility] Address: [address] [address] [place] [address] Advance Directives For more information, please contact: [phone] * Full Code (Latest Code Status on File) Date Activated Date Inactivated Comments 07/23/2023 3:39 PM 07/25/2023 6:34 PM Care Teams Doctor Of Optometry Relationship Specialty Start Date End Date Matias Warren MD [address] [place] [id number] PCP - General Internal Medicine 07/20/23
--- OUTSIDE RECORDS SUMMARY | 2024-10-25 12:35 | XMS_ITS | Clinical Summary ---
Author Organization [facility] Address [address] [facility] Attn: Epic Prelude ADT BARRY LUIRSA [address] Care Team Providers Care Electronics Inspector Name Role Phone Unavailable Primary Care Provider Unavailabl e Medications amLODIPine (NORVASC) 10 mg tablet Take 1 Tablet (10 mg) by mouth daily. 90 Tablet 4 12:45 PM CDT 024 Active insulin glargine-yfgn 100 unit/mL vial Inject 60 units at bedtime 30 mL 2 4 2:26 PM DISH ROOM WORKER 024 Active tirzepatide (Mounjaro) 2.5 mg/0.5 mL Pen Injector Inject 1 pen injector subcutaneously once a week. 2 mL 3 4 1:58 PM DISH ROOM WORKER 024 Active ezetimibe (Zetia) 10 mg tablet Take 1 Tablet (10 mg) by mouth daily. 90 Tablet 5 4 1:58 PM DISH ROOM WORKER 024 Active torsemide (DEMADEX) 10 mg Tablet Take 1 tablet by mouth daily 90 Tablet 5 6:48 PM DISH ROOM WORKER 024 Active insulin lispro (HumaLOG,ADMEL OG) 100 unit/mL pen syringe INJECT 14 UNITS WITH MEALS 15 mL 2 5 3:26 PM DISH ROOM WORKER 025 Active Insulin Syringe-Needle U-100 (BD Insulin Syringe Ultra-Fine) 1 mL 31 gauge x 5/16 Syringe USE FOR INSULIN INJECTIONS 200 Each 5 3:26 PM DISH ROOM WORKER 025 Active ferrous sulfate 325 mg (65 mg iron) tablet Take 1 Tablet (325 mg) by mouth daily. 100 Tablet 5 3:26 PM DISH ROOM WORKER 025 Active patiromer calcium sorbitex (Veltassa) 25.2 [...] daily 30 Packet 11 5 3:26 PM DISH ROOM WORKER 025 Active cefdinir (OMNICEF) 300 mg capsule Take 1 Capsule (300 mg) by mouth daily at 1400 3 Capsule 5 6:32 PM CDT 025 Active amLODIPine (NORVASC) 10 mg tablet Take 1 Tablet (10 mg) by mouth daily. 90 Tablet 1 5 6:03 PM CDT 025 Active insulin lispro (HumaLOG,ADMEL OG) 100 unit/mL pen syringe INJECT 14 UNITS WITH MEALS 15 mL 2 5 6:03 PM CDT 025 Active carvediloL (COREG) 25 mg tablet Take 1 Tablet (25 mg) by mouth 2 times daily. 180 Tablet 5 6:49 PM CDT 025 Active empagliflozin (JARDIANCE) 25 mg tablet Take 1 Tablet (25 mg) by mouth daily in the morning. 90 Tablet 5 4:14 PM CDT 025 Active empagliflozin (Jardiance) 25 mg tablet Take 1 Tablet (25 mg) by mouth daily in the morning. 90 Tablet 1 025 Active HYDROcodone-ac etaminophen (NORCO) 5-325 mg tablet Take 1 Tablet by mouth every 4 hours as needed. Max Daily Amount: 6 Tablets 10 Tablet 5 3:48 PM CDT 025 Active diazePAM (VALIUM) 10 mg tablet Take 1 Tablet (10 mg) by mouth 3 times daily as needed for anxiety. 84 Tablet 5 7:32 PM CDT 025 Active insulin lispro (HumaLOG,ADMEL OG) 100 unit/mL pen syringe INJECT 14 UNITS WITH MEALS 15 mL 2 5 7:32 PM CDT 025 Active insulin glargine-yfgn 100 unit/mL pen syringe Inject 60 Units by subcutaneous injection daily. 15 mL 025 Active diazePAM (VALIUM) 10 mg tablet Take 1 tablet by mouth three times daily as needed for anxiety 84 Tablet 5 7:11 PM CDT 025 Active folic acid (FOLVITE) 1 mg tablet Take 1 Tablet (1 mg) by mouth daily. 90 Tablet 5 2:29 PM CDT 025 Active Insulin Ralph, Disposable, (BD Ultra-Fine Short Pen Needle) 31 gauge x 5/16 Needle Use with Insulin pen. 100 Each 3 5 2:29 PM CDT 025 Active azithromycin (ZITHROMAX) 250 mg tablet Take 2 tablets (500 mg) by mouth today, than 1 tablet (250 mg) daily for 4 days. 6 Tablet 5 5:08 PM CDT 025 Active benzonatate (TESSALON) 100 mg capsule Take 1 capsule (100 mg total) by mouth 3 (three) times a day as needed for cough 42 Capsule 025 Active insulin glargine (Lantus Solostar U-100 Insulin) 100 unit/mL pen syringe Inject 60 units under the skin once daily 15 mL 2 5 6:00 PM CDT 025 Active Blood-Glucose Sensor (Dexcom G6 Sensor) Device CHANGE DIRECTED. 3 Each 5 3:13 PM CDT 025 Active Blood-Glucose Transmitter (Dexcom G6 Transmitter) Device CHANGE DIRECTED. 1 Each 5 3:13 PM CDT 025 Active diazePAM (VALIUM) 10 mg tablet Take 1 Tablet (10 mg) by mouth 3 times daily as needed for anxiety. 84 Tablet 5 3:13 PM CDT 025 Active metOLazone (ZAROXOLYN) 2.5 mg tablet Take 1 Tablet (2.5 mg) by mouth 1 time daily as needed for swelling. 90 Tablet 025 Active ergocalciferol (Vitamin D2) 50,000 unit capsule Take 1 Capsule (50,000 Units) by mouth every 7 days. 13 Capsule 08/11/2 025 Active Blood-Glucose Sensor (Dexcom G6 Sensor) Device CHANGE DIRECTED. 3 Each 5 6:03 PM CDT 025 2024 Discontinued Blood-Glucose Transmitter (Dexcom G6 Transmitter) Device CHANGE DIRECTED. 1 Each 5 6:03 PM CDT 025 2024 Discontinued metOLazone (ZAROXOLYN) 2.5 mg tablet Take 1 Tablet (2.5 mg) by mouth 1 time daily as needed for swelling. 90 Tablet 5 6:21 PM CDT 025 2024 Discontinued ergocalciferol (Vitamin D2) 50,000 unit capsule Take 1 Capsule (50,000 Units) by mouth every 7 days. 13 Capsule 5 7:32 PM CDT 025 2024 Discontinued insulin glargine (Lantus Solostar U-100 Insulin) 100 unit/mL pen syringe Inject 60 units under the skin once daily 15 mL 5 7:32 PM CDT 025 2024 Discontinued torsemide (DEMADEX) 20 mg tablet TAKE ONE TABLET DAILY ALONG WITH A 10 MG TO EQUAL 30 MG DAILY 30 Tablet 5 2:29 PM CDT 025 2024 Discontinued metOLazone (ZAROXOLYN) 2.5 mg tablet Take 1 Tablet (2.5 mg) by mouth 1 time daily as needed for swelling. 90 Tablet 025 2024 Discontinued predniSONE (DELTASONE) 20 mg tablet Take 2 tablets (40 mg) by mouth daily for 5 days 10 Tablet 025 2024 amoxicillin-cl avulanate (AUGMENTIN) 875-125 mg tablet Take 1 Tablet by mouth every 12 hours for 7 days. 14 Tablet 5 4:58 PM CDT 025 2024 Encounters Date Type [...] Orientation Not on file Plan of Treatment Upcoming Encounters Date Type Department Care Team (Late st Contact Info) Description 11/01/2024 3:00 PM CDT Office Visit [facility] Oncology and Hematology [facility] [address] [facility] [address] [place] [address] Hector Krishna MD [address] [facility] [address] [place] [address] Health Maintenance Due Date Last Done Comments [...] file Type:Not on file Address: [facility]
[2024-10-25 12:40] LABS: Ferritin 25.50 ng/mL (11.1-264)
[2024-10-25 13:03] LABS: Total Protein Urine Random 421 mg/dL; Ur Ttl Prot Creatinine Ratio 6.79 mg/mg (0-0.20)
[2024-10-25 13:09] LABS: Vitamin B12 768.0 pg/mL (239-931)
== END 2024-10-25 11:13 | disposition home or self-care (01) ==
PROVIDERS: Visit Provider Internal Medicine Nephrology
DX: R60.0 Localized edema (principal); E87.70 Fluid overload, unspecified; E11.22 Type 2 diabetes mellitus with diabetic chronic kidney disease; D63.1 Anemia in chronic kidney disease; I12.0 Hypertensive chronic kidney disease with stage 5 chronic kidney disease or end stage renal disease; N18.5 Chronic kidney disease, stage 5
CPT/HCPCS: 36415; 80069; 82570; 82607; 82728; 82746; 83540; 83550; 84156; 85027

== ENCOUNTER 2024-11-01 16:28 | Outpatient (CLI) | payer OTHER, SELFPAY ==
--- OUTSIDE RECORDS SUMMARY | 2016-10-14 11:30 | XMS_ITS | Continuity of Care Document ---
Author Organization [facility] Address [address] [place] [address] [place] [address] Phone Care Team Providers Care [facility] Health Care Technician Name Role Phone Rocky Spence MD Unavailable Unavailable Allergies, Adverse Reactions, Alerts Substance Reaction Status Criticality CIPROFLOXACIN HCL Active No Informa tion ciprofloxacin Active No Information ofloxacin Active No Information morphine Active No Information MEPERIDINE HCL Active No Informatio n Medications Medication Instructions Dosage Effective Dates (start - stop) Status Comments clonidine HCl 0.2 mg tablet take 1 tablet by oral route 2 times every day 0.2 MG - Active Diovan HCT 160 mg-25 mg tablet take 1 tablet by oral route every day 1.00 tablet - Active Norvasc 10 mg tablet take 1 tablet by oral route every day 10 MG - Active Lantus 100 unit/mL subcutaneous solution inject by subcutaneous route as per insulin protocol 0.00 - Active 60 unis in the morning Xanax 2 mg tablet take 1 tablet (2MG) by oral route 3 times every day - Active avoid driving or operate machines Novolog 100 unit/mL subcutaneous solution inject by [...] Copied on Encounter OFFICE/OUTPA TIENT VISIT, EST [facility], [address], [place], [address], tel:[phone] [facility] Medicine DM (chief complaint)s leep apnea1 (chief complaint)p roteinuria1 (chief complaint)l ow iron (chief complaint)a nxiety1 (chief complaint) Type 2 diabetes mellitus with diabetic nephropathyEssenti al (primary) hypertensionSleep apneaBody mass index (BMI) 50-59.9 , adult 7 Jordy Hidalgo. [address], [place], [place], [address] , [place]. tel:[phone] Referring Provider: Rocky Spence [address], [place], [place], [address]. tel:[phone] [facility], [address] [place], [place], [address], [place] tel:[phone] [facility] No Information 7 Jordy Hidalgo. [address], [place], [place], [address] , [place]. tel:[phone] OFFICE/OUTPA TIENT VISIT, EST [facility], [address] [place], [place], [address], [place] tel:[phone] [facility] DM1 (chief complaint)H TN (chief complaint)a neity1 (chief complaint)o beisty1 (chief complaint) Type 2 diabetes mellitus without complicationsEssen tial (primary) hypertensionBody mass index (BMI) 50-59.9 , adultAnxiolytic dependence Fercho- 7 Jordy Soto [address], [place], [place], [address] , [place]. tel:[phone] [facility], [address], [place], [place], [address], [place] tel:[phone] [facility] No Information 7 Jordy Soto [address], [place], [place], [address] , [place]. tel:[phone] OFFICE/OUTPA TIENT VISIT, [facility], [address], [place], [place], [address], [place] tel:[phone] [facility] HTN (chief complaint)s leep apnea1 (chief complaint)a nxiety1 (chief complaint)D M (chief complaint) Sleep apneaEssential (primary) hypertensionType 2 diabetes mellitus without complicationsAnxio lytic dependence 7 Jordy Soto [address], [place], [place], [address] , [place]. tel:[phone] [facility], [address], [place], [place], [address], [place] tel:[phone] [facility] No Information 7 Jordy Soto [address], [place], [place], [address] , [place]. tel:[phone] OFFICE/OUTPA TIENT VISIT, [facility], [address], [place], [place], [address], [place] tel:[phone] [facility] DM (chief complaint)H TN (chief complaint)a nxiety1 (chief complaint)a nemia1 (chief complaint) Type 2 diabetes mellitus without complicationsAnxio lytic dependenceEssentia l (primary) hypertensionBody mass index (BMI) 50-59.9 , adult Fe- 7 Jordy Soto [address], [place], [place], [address] , [place]. tel:[phone] Referring Provider: Wilfred [address], [place], [place], [address]. tel:[phone] OFFICE/OUTPA TIENT VISIT, EST [facility], [address], [place], [place], [address], [place] tel:[phone] [facility] HTN (chief complaint)a nxiety1 (chief complaint)D M (chief complaint) Essential (primary) hypertensionType 2 diabetes mellitus without complicationsAnxio lytic dependenceBody mass index (BMI) 50-59.9 , adult Feb- 6 Jordy Hidalgo. [address], [place], [place], [address] , [place]. [phone] Referring Provider: Wilfred Lopez [address], [place], [place], [address]. tel:[phone] PREV VISIT, EST, AGE 40-63 [facility], [address], [place], [place], [address], [place] tel:[phone] [facility] PHysical (chief complaint) Encntr for general adult medical exam w/o abnormal findings 6 Jordy Hidalgo. [address], [place], [place], [address] , [place]. [phone] Referring Provider: Wilfred Lopez [address], [place], [place], [address]. tel:[phone] OFFICE/OUTPA TIENT VISIT, EST [facility], [address], [place], [place], [address], [place] tel:[phone] [facility] DM (chief complaint)H TN (chief complaint)a nxiety1 (chief complaint)i silvino deficiecy (chief complaint) Iron deficiencyEssentia l (primary) hypertensionAnxiol ytic dependenceType 2 diabetes mellitus without complications 0 6 Jordy Hidalgo. [address], [place], [address] , [place]. [phone] [facility], [address], [place], [place], [address], [place] tel:[phone] [facility] No Information 6 Jordy Hidalgo. [address], [place], [address] , [place]. tel:[phone] OFFICE/OUTPA TIENT VISIT, [facility], [address], [place], [place], [address], [place] tel:[phone] [facility] HTN (chief complaint)D M (chief complaint)a nixety1 (chief complaint) Type 2 diabetes mellitus without complicationsEssen tial (primary) hypertensionAnxiol ytic dependence 6 Jordy Hidalgo. [address], [place], [place], [address] , [place]. [phone] Referring Provider: Wilfred [address], [place], [place], [address]. tel:[phone] OFFICE/OUTPA TIENT VISIT, [facility], [address], [place], [place], [address], [place] tel:[phone] [facility] DM (chief complaint)a nxiety1 (chief complaint)H TN (chief complaint) Type 2 diabetes mellitus without complicationsAnxio lytic dependenceEssentia l (primary) hypertension 6 Jordy Hidalgo. [address], [place], [address] , [place]. [phone] Referring Provider: Wilfred Lopez [address], [place], [place], [address]. tel:[phone] OFFICE/OUTPA TIENT VISIT, [facility], [address], [place], [place], [address], [place] tel:[phone] [facility] HTN (chief complaint)D M (chief complaint)a nxiety1 (chief complaint) Essential (primary) hypertensionType 2 diabetes mellitus without complicationsAnxio lytic dependence 6 Jordy Hidalgo. [address], [place], [place], [address] , [place]. tel:[phone] Referring Provider: Wilfred Lopez [address], [place], [place], [address]. tel:[phone] OFFICE/OUTPA TIENT VISIT, [facility], [address], [place], [place], [address], [place] tel:[phone] [facility] DM (chief complaint)i silvino deficiency (chief complaint)p roteinuria (chief complaint)H TN (chief complaint) Type 2 diabetes mellitus without complicationsProte inuriaIron deficiencyEssentia l (primary) hypertension 6 Jordy Hidalgo. [address], [place], [place], [address] , [place]. tel:[phone] Referring Provider: Wilfred Lopez [address], [place], [place], [address]. tel:[phone] OFFICE/OUTPA TIENT VISIT, [facility], [address], [place], [place], [address], [place] tel:[phone] [facility] DM (chief complaint)a nxiety1 (chief complaint)H TN (chief complaint) Type 2 diabetes mellitus without complicationsAnxio lytic dependenceEssentia l (primary) hypertensionTachyc ardia 6 Jordy Hidalgo. [address], [place], [place], [address] , [place]. [phone] Referring Provider: Wilfred Lopez [address], [place], [place], [address]. tel:[phone] OFFICE/OUTPA TIENT VISIT, [facility], [address], [place], [address], [place] tel:[phone] [facility] HTN1 (chief complaint)d M (chief complaint)a nxiety1 (chief complaint) Type 2 diabetes mellitus without complicationsEssen tial (primary) hypertensionAnxiol ytic dependence 6 Jordy Hidalgo. [address], [place], [place], [address] , [place]. tel:[phone] Referring Provider: Wilfred Lopez [address], [place], [place], [address]. tel:[phone] OFFICE/OUTPA TIENT VISIT, [facility], [address], [place], [place], [address], [place] tel:[phone] [facility] HTN (chief complaint)D M (chief complaint)a nxiety1 (chief complaint) Type 2 diabetes mellitus without complicationsAnxio lytic dependenceEssentia l (primary) hypertensionEncoun ter for oth screening for malignant neoplasm of breast 6 Jordy Hidalgo. [address], [place], [place], [address] , [place]. [phone] Referring Provider: Wilfred Lopez [facility] A, [place], [place], [address]. tel:[phone] OFFICE/OUTPA TIENT VISIT, [facility], [address], [place], [place], [address], [place] tel:[phone] [facility] HTN1 (chief complaint)D M1 (chief complaint)A nxiety1 (chief complaint)S ick1 (chief complaint) Type 2 diabetes mellitus without complicationsEssen tial (primary) hypertensionAcute upper respiratory infection, unspecifiedAnxioly tic dependence 5 Jordy Hidalgo. [address], [place], [place], [address] , [place]. [phone] Referring Provider: Wilfred Lopez [facility] A, [place], [place], [address]. tel:[phone] OFFICE/OUTPA TIENT VISIT, [facility], [address], [place], [place], [address], [place] tel:[phone] [facility] HTN1 (chief complaint)D M1 (chief complaint)a nxiety1 (chief complaint)n oncompliant (chief complaint)c hest pain1 (chief complaint) Essential (primary) hypertensionType 2 diabetes mellitus without complications 5 Jordy Soto [address], [place], [place], [address] , [place]. tel:[phone] Referring Provider: Wilfred Lopez [address], [place], [place], [address]. tel:[phone] OFFICE/OUTPA TIENT VISIT, [facility], [address], [place], [place], [address], tel:[phone] [facility] DM1 (chief complaint)A nxiety1 (chief complaint)H TN1 (chief complaint)s leep apnea1 (chief complaint) Dietary surveillance and counselingType 2 diabetes mellitus w/o complicationEssent ial (primary) hypertensionOther sleep apnea 5 Jordy Hidalgo. [address], [place], [place], [address] , [place]. tel:[phone] Referring Provider: [address], [place], [place], [address]. tel:[phone] OFFICE/OUTPA TIENT VISIT, [facility], [address] [place], [address], [place] tel:[phone] [facility] DM (chief complaint)H TN (chief complaint)a nxiety (chief complaint) Dietary surveillance and counselingBrittle diabetesUnspecifie d essential hypertensionCurren t use of insulin 5 Jordy Soto [address], [place], [place], [address] , [place]. tel:[phone] Referring Provider: [address], [place], [place], [address]. tel:[phone] OFFICE/OUTPA TIENT VISIT, [facility], [address] [place], [address], [place] tel:[phone] [facility] HTN (chief complaint)D M (chief complaint)s leep apnea (chief complaint) Dietary surveillance and counselingUnspecif ied essential hypertensionUnspec ified sleep apneaBrittle diabetesBMI 50.0 to 59.9 5 Jordy Soto [address], [place], [place], [address] , [place]. tel:[phone] Referring Provider: Rocky Spence, [address], [place], [place], [address]. tel:[phone] OFFICE/OUTPA TIENT VISIT, [facility], [address], [place], [place], [address], [place] tel:[phone] [facility] fatty liver (chief complaint)D M (chief complaint)H TN (chief complaint) Dietary surveillance and counselingUnspecif ied essential hypertensionOther specified disorders of liverBrittle diabetes 5 Jordy Hidalgo. [address], [place], [place], [address] , [place]. tel:[phone] Referring Provider: Rocky Spence, [address], [place], [place], [address]. tel:[phone] [facility], [address], [place], [place], [address], [place] tel:[phone] [facility] No Information 5 Jordy Hidalgo. [address], [place], [place], [address] , [place]. tel:[phone] OFFICE/OUTPA TIENT VISIT, [facility], [address], [place], [place], [address], [place] tel:[phone] [facility] Anxiety (chief complaint)D M (chief complaint) Dietary surveillance and counselingBrittle diabetesBlood pressure elevated 5 Jordy Hidalgo. [address], [place], [place], [address] , [place]. tel:[phone] Referring Provider: Rocky Spence, [address], [place], [place], [address]. tel:[phone] OFFICE/OUTPA TIENT VISIT, [facility], [address], [place], [place], [address], [place] tel:[phone] [facility] sleep apnea (chief complaint)A nxeity (chief complaint)D M (chief complaint) Dietary surveillance and counselingUnspecif ied sleep apneaBrittle diabetesUnspecifie d disorder of liver 5 Jordy Hidalgo. [address], [place], [place], [address] , [place]. tel:[phone] Referring Provider: Wilfred Lopez [address], [place], [place], [address]. tel:[phone] OFFICE/OUTPA TIENT VISIT, [facility], [address], [place], [place], [address], [place] tel:[phone] [facility] DM (chief complaint)s leep apnea (chief complaint)a nxiety (chief complaint) Dietary surveillance and counselingDiabetes Mellitus Type 2, UncomplicatedSleep ApneaUnspecified disorder of liver 5 Jordy Hidalgo. [address], [place], [place], [address] , [place]. [phone] Referring Provider: Wilfred Lopez [address], [place], [place], [address]. tel:[phone] OFFICE/OUTPA TIENT VISIT, [facility], [address], [place], [place], [address], [place] tel:[phone] [facility] DM (chief complaint)H TN (chief complaint)s leep apnea (chief complaint)L FT (chief complaint) Dietary surveillance and counselingDiabetes Mellitus Type 2, UncomplicatedHyper tension, UnspecifiedUnspeci fied disorder of liverSleep Apnea 5 Jordy Hidalgo. [address], [place], [place], [address] , [place]. [phone] Referring Provider: Wilfred Lopez [address], [place], [place], [address]. tel:[phone] OFFICE/OUTPA TIENT VISIT, [facility], [address], [place], [place], [address], [place] tel:[phone] [facility] anxiety (chief complaint)D M (chief complaint) Dietary surveillance and counselingDiabetes Mellitus Type 2, UncomplicatedSleep ApneaSedative, hypnotic or anxiolytic dependence, unspecified Fe 5 Jordy Hidalgo. [address], [place], [place], [address] , [place]. [phone] Referring Provider: Rocky Spence, [address], [place], [place], [address]. tel:[phone] OFFICE/OUTPA TIENT VISIT, [facility], [address], [place], [place], [address], [place] [phone] [facility] DM (chief complaint)a nxiety (chief complaint)H TN (chief complaint)s leep apnea (chief complaint) Dietary surveillance and counselingDiabetes Mellitus, Adult Onset, UncontrolledHypert ension, UnspecifiedSleep Apnea 5 Jordy Hidalgo. [address], [place], [place], [address] , [place]. [phone] Referring Provider: Wilfred Lopez [address], [place], [place], [address]. tel:[phone] OFFICE/OUTPA TIENT VISIT, [facility], [address], [place], [place], [address], [place] tel:[phone] [facility] DM (chief complaint)s leep apnea (chief complaint)a nxiety (chief complaint) Dietary surveillance and counselingDiabetes Mellitus Type 2, UncomplicatedSleep ApneaCentral hearing lossHypertension, Unspecified 4 Jordy Hidalgo. [address], [place], [place], [address] , [place]. tel:[phone] Referring Provider: Wilfred Lopez [address], [place], [place], [address]. tel:[phone] OFFICE/OUTPA TIENT VISIT, [facility], [address], [place], [place], [address], [place] tel:[phone] [facility] DM (chief complaint)l ow iron (chief complaint)a nxiety (chief complaint) AnemiaHypertension , UnspecifiedDiabete s Mellitus, Adult Onset, UncontrolledDietar y surveillance and counseling 4 Jordy Hidalgo. [address], [place], [place], [address] , . tel:[phone] Referring Provider: Rocky Spence, [address], [place], [place], [address]. tel:[phone] OFFICE/OUTPA TIENT VISIT, [facility], [address], [place], [place], [address], [place] tel:[phone] [facility] finger infection (chief complaint)a nxiety (chief complaint)D M (chief complaint) Dietary surveillance and counselingDiabetes Mellitus, Adult Onset, UncontrolledOnychi a and paronychia of fingerSleep ApneaHypertension, Unspecified 4 Jordy Hidalgo. [address], [place], [place], [address] , . tel:[phone] Referring Provider: Wilfred Lopez [address], [place], [place], [address]. tel:[phone] OFFICE/OUTPA TIENT VISIT, [facility], [address] [place], [address], [place] tel:[phone] [facility] headache (chief complaint)a nxiety (chief complaint)s leep apnea (chief complaint)t innitus (chief complaint) Dietary surveillance and counselingHeadache Sleep ApneaCentral hearing loss 4 Jordy Hidalgo. [address], [place], [place], [address] , [place]. tel:[phone] Referring Provider: Wilfred Lopez [address], [place], [place], [address]. tel:[phone] OFFICE/OUTPA TIENT VISIT, [facility], [address], [place], [place], [address], [place] tel:[phone] [facility] DM (chief complaint)a nxiety (chief complaint)h and numbness (chief complaint) Dietary surveillance and counselingDiabetes Mellitus Type 2, UncomplicatedDistu rbance of skin sensationCervicalg ia 4 Jordy Hidalgo. [address], [place], [place], [address] , [place]. tel:[phone] Referring Provider: Wilfred Lopez [address], [place], [place], [address]. tel:[phone] OFFICE/OUTPA TIENT VISIT, [facility], [address], [place], [place], [address], [place] tel:[phone] [facility] DM (chief complaint)H TN (chief complaint)a nxiety (chief complaint)d izziness (chief complaint)s leep apnea (chief complaint) Diabetes Mellitus Type 2, UncomplicatedVerti goHypertension, UnspecifiedSleep Apnea 4 Jordy Hidalgo. [address], [place], [place], [address] , . tel:[phone] Referring Provider: Wilfred Lopez [address], [place], [place], [address]. tel:[phone] OFFICE/OUTPA TIENT VISIT, [facility], [address] [place], [address], [place] tel:[phone] [facility] DM (chief complaint)a nxiety (chief complaint)H TN (chief complaint) Dietary surveillance and counselingDiabetes Mellitus, Adult Onset, UncontrolledHypert ension, Unspecified 4 Jordy Hidalgo. [address], [place], [place], [address] , [place]. tel:[phone] Referring Provider: Wilfred Lopez [address], [place], [place], [address]. tel:[phone] OFFICE/OUTPA TIENT VISIT, [facility], [address], [place], [address], [place] tel:[phone] [facility] Tinnitus (chief complaint)a nxiety (chief complaint)D M (chief complaint) Tinnitus, unspecifiedVertigo Diabetes Mellitus Type 2, UncomplicatedDieta ry surveillance and counseling 4 Jordy Hidalgo. [address], [place], [place], [address] , . tel:[phone] Referring Provider: Wilfred Lopez [address], [place], [place], [address]. tel:[phone] OFFICE/OUTPA TIENT VISIT, [facility], [address], [place], [place], [address], tel:[phone] [facility] DM (chief complaint)H TN (chief complaint)a nxiety (chief complaint) Dietary surveillance and counselingDiabetes Mellitus Type 2, UncomplicatedHyper tension, Unspecified 4 Jordy Hidalgo. [address], [place], [place], [address] , [place]. tel:[phone] Referring [facility]: [facility] [place], [address]. tel:[phone] OFFICE/OUTPA TIENT VISIT, [facility], [address], [place], [place], [address], [place] tel:[phone] [facility] shingle (chief complaint)A nxiety (chief complaint)S inus (chief complaint)D M (chief complaint) Dietary surveillance and counselingHerpes zoster without mention of complicationSinusi tis, AcuteTinnitus, unspecifiedDiabete s Mellitus, Adult Onset, Uncontrolled 4 Jordy Hidalgo. [address], [place], [place], [address] , [place]. tel:[phone] Referring Provider: Wilfred Lopez [address], [place], [place], [address]. tel:[phone] OFFICE/OUTPA TIENT VISIT, [facility], [address], [place], [place], [address], [place] tel:[phone] [facility] anxiety (chief complaint)e ar pain (chief complaint)b ack pain (chief complaint) Dietary surveillance and counselingDietary surveillance and counselingTinnitus , unspecifiedLumbago Otalgia, unspecified 4 Jordy Hidalgo. [address], [place], [place], [address] , [place]. tel:[phone] Referring Provider: Wilfred Lopez [address], [place], [place], [address]. tel:[phone] OFFICE/OUTPA TIENT VISIT, [facility], [address], [place], [place], [address], [place] tel:[phone] [facility] HTN (chief complaint)D M (chief complaint)a nxiety (chief complaint) Dietary surveillance and counselingHyperten sarah, UnspecifiedDiabete s Mellitus, Adult Onset, Uncontrolled 4 Jordy Hidalgo. [address], [place], [place], [address] , [place]. [phone] Referring Provider: Wilfred Lopez [address], [place], [place], [address]. tel:[phone] OFFICE/OUTPA TIENT VISIT, [facility], [address], [place], [address], [place] tel:[phone] [facility] DM (chief complaint)a nxiety (chief complaint) Dietary surveillance and counselingHyperten sarah, UnspecifiedDiabete s Mellitus, Adult Onset, Uncontrolled 4 Jordy Hidalgo. [address], [place], [place], [address] , [place]. tel:[phone] Referring Provider: Wilfred Lopez [address], [place], [place], [address]. tel:[phone] OFFICE/OUTPA TIENT VISIT, [facility], [address], [place], [place], [address], [place] tel:[phone] [facility] anxiety (chief complaint)U RI (chief complaint)D M (chief complaint) Dietary surveillance and counselingDiabetes Mellitus, Adult Onset, UncontrolledAcute upper respiratory infections of other multiple sites 3 Jordy Hidalgo. [address], [place], [place], [address] , [place]. tel:[phone] Referring Provider: Rocky Spence [address], [place], [place], [address]. tel:[phone] OFFICE/OUTPA TIENT VISIT, [facility], [address], [place], [place], [address], [place] tel:[phone] [facility] HTN (chief complaint)D M (chief complaint)a nxiety (chief complaint) Dietary surveillance and counselingHyperten sarah, UnspecifiedDiabete s Mellitus, Adult Onset, Uncontrolled 3 Jordy Hidalgo. [address], [place], [place], [address] , [place]. tel:[phone] OFFICE/OUTPA TIENT VISIT, [facility], [address], [place], [place], [address], [place] tel:[phone] [facility] HTN (chief complaint)a nxiety (chief complaint)f atigue (chief complaint) Dietary surveillance and counselingLumbagoH ypertension, UnspecifiedSleep Apnea 3 Jordy Hidalgo. [address], [place], [place], [address] , [place]. tel:[phone] Referring Provider: Wilfred Lopez [address], [place], [place], [address]. tel:[phone] OFFICE/OUTPA TIENT VISIT, [facility], [address], [place], [place], [address], [place] tel:[phone] [facility] HTN (chief complaint)D M (chief complaint)a nxiety (chief complaint) Dietary surveillance and counselingLumbagoH ypertension, UnspecifiedDiabete s Mellitus Type 2, Uncomplicated 3 Jordy Hidalgo. [address], [place], [place], [address] , [place]. tel:[phone] Referring Provider: Wilfred Lopez [address], [place], [place], [address]. tel:[phone] OFFICE/OUTPA TIENT VISIT, [facility], [address], [place], [place], [address], [place] tel:[phone] [facility] anemia (chief complaint)D M (chief complaint)a nxiety (chief complaint) AnemiaHypertension , UnspecifiedDiabete s Mellitus Type 2, UncomplicatedDieta ry surveillance and counseling 3 Jordy Hidalgo. [address], [place], [place], [address] , [place]. [phone] Referring Provider: Rocky Spence, [address], [place], [place], [address]. tel:[phone] OFFICE/OUTPA TIENT VISIT, [facility], [address], [place], [address], [place] tel:[phone] [facility] anemia (chief complaint)D M (chief complaint)H TN (chief complaint) AnemiaDietary surveillance and counselingDiabetes Mellitus, Adult Onset, UncontrolledHypert ension, Unspecified 3 Jordy Hidalgo. [address], [place], [place], [address] , [place]. tel:[phone] Referring Provider: Rocky Spence [address], [place], [place], [address]. tel:[phone] OFFICE/OUTPA TIENT VISIT, [facility], [address], [place], [place], [address], [place] tel:[phone] [facility] anxiety (chief complaint)D M (chief complaint)b ronchitis (chief complaint) Dietary surveillance and counselingDiabetes Mellitus, Adult Onset, UncontrolledHypert ension, UnspecifiedBronchi tis, Acute 3 Jordy Soto [address], [place], [place], [address] , [place]. [phone] Referring Provider: Rocky Spence [address], [place], [place], [address]. tel:[phone] OFFICE/OUTPA TIENT VISIT, [facility], [address], [place], [place], [address], [place] tel:[phone] [facility] HTN (chief complaint)a nxiety (chief complaint)s ick (chief complaint) Acute upper respiratory infections of other multiple sitesHypertension, UnspecifiedDiabete s Mellitus, Adult Onset, Uncontrolled 3 Jordy Hidalgo. [address], [place], [place], [address] , [place]. [phone] Referring Provider: Rocky Spence, [address], [place], [place], [address]. tel:[phone] OFFICE/OUTPA TIENT VISIT, [facility], [address], [place], [place], [address], [place] tel:[phone] [facility] HTN (chief complaint)D M (chief complaint)a nxiety (chief complaint) Dietary surveillance and counselingHyperten sarah, UnspecifiedDiabete s Mellitus, Adult Onset, Uncontrolled Jun- 3 Jordy Hidalgo. [address], [place], [address] , [place]. [phone] Referring Provider: Wilfred Lopez [address], [place], [place], [address]. tel:[phone] OFFICE/OUTPA TIENT VISIT, [facility], [address], [place], [address], [place] tel:[phone] [facility] HTN (chief complaint)V ision chanage (chief complaint)A nemia (chief complaint) Dietary surveillance and counselingAnemiaDi abetes Mellitus, Adult Onset, UncontrolledHypert ension, UnspecifiedCarotid Artery Disease, Unilateral 3 Jordy Hidalgo. [address], [place], [place], [address] , [place]. [phone] Referring Provider: Wilfred Lopez [address], [place], [place], [address]. tel:[phone] OFFICE/OUTPA TIENT VISIT, [facility], [address], [place], [address], [place] tel:[phone] [facility] cough (chief complaint)H TN (chief complaint) Dietary surveillance and counselingAcute upper respiratory infections of other multiple sitesHypertension, UnspecifiedDiabete s Mellitus, Adult Onset, Uncontrolled 3 Jordy Hidalgo. [address], [place], [place], [address] , [place]. [phone] Referring Provider: Wilfred Lopez [address], [place], [place], [address]. tel:[phone] OFFICE/OUTPA TIENT VISIT, [facility], [address], [place], [address], [place] tel:[phone] [facility] anxiety (chief complaint)H TN (chief complaint)D M (chief complaint) Dietary surveillance and counselingHyperten sarah, UnspecifiedDiabete s Mellitus, Adult Onset, UncontrolledLumbag o 3 Jordy Hidalgo. [address], [place], [place], [address] , [place]. [phone] Referring Provider: Wilfred Lopez [address], [place], [place], [address]. tel:[phone] OFFICE/OUTPA TIENT VISIT, [facility], [address], [place], [address], [place] tel:[phone] [facility] DM/HTN (chief complaint)a nxiety (chief complaint)a nemia (chief complaint) Dietary surveillance and counselingDiabetes Mellitus Type 2, UncomplicatedAnemi aLumbagoHypertensi on, Unspecified 2 Jordy Hidalgo. [address], [place], [place], [address] , [place]. tel:[phone] Referring Provider: Wilfred Lopez [address], [place], [place], [address]. tel:[phone] OFFICE/OUTPA TIENT VISIT, [facility], [address], [place], [place], [address], tel:[phone] [facility] back pain (chief complaint)a nxiety (chief complaint)D M (chief complaint) Dietary surveillance and counselingLumbagoD iabetes Mellitus Type 2, UncomplicatedHyper tension, Unspecified 2 Jordy Hidalgo. [address], [facility] A, [place], [place], [address] , . tel:[phone] Referring Provider: Wilfred Lopez [facility] A, [place], [place], [address]. tel:[phone] OFFICE/OUTPA TIENT VISIT, [facility], [address], [place], [place], [address], tel:[phone] [facility] anxiety (chief complaint)b ack pain (chief complaint)H TN (chief complaint)a nemia (chief complaint) Dietary surveillance and counselingLumbagoA nemiaHypertension, Unspecified 2 Jordy Hidalgo. [address], [place], [place], [address] , [place]. tel:[phone] Referring Provider: Wilfred Lopez [facility], [place], [place], [address]. tel:[phone] Family History Family Member Type Diagnosis Age At Onset Father Problem (finding) unknown Mother Problem (finding) Alive and well Brother Problem (finding) Alive and well Payers Payer name Insurance type Covered green party ID Authoriza tion(s) No Information Social History [...] ordered Referral Referred To: Tosha Kilpatrick [address] [place], [phone] Ordered: Referrals: Tosha Kilpatrick. Evaluate and treat [...] Pt still has NOT done lab work DM Pt has poorly co ntrolled DM. Pt takes lantus and novolog. Her BP is around 150-200 per patient. Pt still has not done lab yet to check A1c. Pt denies any foot numbness. anxiety1 Pt has chronic a nxiety .Pt denies any depression or any suicidal thought. 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 Pt still feels fatigue throughout the day HTN Pt has persisten tly high BP despite taking nrovasc, losartan.hctz and clonidine. Her BP at home is also range between 150-180. Pt denies any chest pain or headache DM Pt takes 40 unit s of [...] any chest pain or headache anxiety1 Pt states that s he is having panic attacks. Pt has been out of xanax for two days .Pt denie sany depresson or any sucidal thought. Pt has been having hyperventilating and panic feelings since running out of xanax. Pt denies any seizures HTN Pt has poorly co ntrolled HTN. [...] is arond 200. Pt is very noncompliant HTN Pt started metop rolol 25 mg bID by cardiology but she stopped norvac and losartan./HCZT on her own for unknown reason. Pt is very noncompliant. Pt denies any headache or chest pain iron deficiency Pt has low iron. Pt state sthat she has heavy period monthly. pt is not anemic Pt denies any GI blood loss. Pt denies any dizziness DM Pt has poorly co ntrolled DM. Pt is very noncompliant with diet and exercise. Pt also has been noncompliant with insulin. pt denies any polyuria, polydipsia. Pt denies any vision loss proteinuria Pt has proteinia in her urine. Pt denies any UTI symptoms HTN Pt takes norvasc and losartan.HCTZ for [...] tachycardia. Pt denies any acute symptoms now anxiety1 Pt has chronic a nxiety. PT denies any depression or any sucidal thought. Pt denies any crying spells DM Pt takes lantus 15 units in AM and humalog before meals. Her BG is around 200s now. Pt still has not done lab yet. Pt denies any hypoglycemia anxiety1 Pt has chronic a nxiety Pt denie any depression or any suicidal thought. Pt denies any crying spells dM Pt takes lantus 10 unis in the morning Her bG is around 300 in the morning and around 120 during the day. Pt denies any hypoglycemia. HTN1 Pt takes losarta n.hcTZ and norvasc and her BP is high today Pt denies any chest pain or headache Pt is on low salt diet DM Pt has DM. Pt is taking [...] crying spells or any feeling of hopelessness. Sick1 Pt c/o running n ose, dry cough, sneezing, sinus prssure for 5 days. pt denies any fever, Pt denies any recent travel. Pt denies any sick contact Anxiety1 Pt has chronic a nxiety. Pt denies any depression or any suicidasl thought. Pt denies any crying spells. Pt denies any feeling of hopelessness. DM1 Pt has issue get ting testing strip. Pt has not been able to check BG. Pt is only taking amamryl now. Pt is not taking lantus and humalog. Pt denies any polyuria, polydipsia HTN1 Pt has HTN. Pt t lavon losartan. HCTZ. Pt for some reason did not get the norvasc. Pt is having issue with [facility]. Her BP is high today. pt denies any chest pain or headache DM1 Pt has DM. [...] denies any change in quality of pain HTN1 Pt has HTN. 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 Pt has been using CPAP nightly [...] denies any chest pain or headache sleep apnea Relevant history : a BMI of 52.70. The patient denies depression, headache, insomnia or wheezing. Additional information: Pt uses CPAP nightly throughout the night. Pt feels more energy and also sleeps much better and she does not snore anymore. Pt is happy with it. DM Pt takes amaryl and humalog/ Pt states that her BG is around 200. Pt states that 15 units humalog is doing better. Pt denies any numbness. Pt denies any hypoglycemia or any polyura, polydipsia HTN Pt has HTN. Pt t akes lisinoril but her BP is still mildly high. Pt denies any chest pain or hedache fatty liver Pt has fatty frankie er. [...] states that metformin makes her stomach upset. DM Pt takes metform in humalog and amaryl. Pt has not used humalog and amary 4 mg recently due to running out of strip? Pt states that she always has issue with [facility] getting her strip. Anxeity Pt has chronic a nxiety. Pt deneis any depression or any suicidal thought sleep apnea Relevant history : a BMI of 51.67. Additional information: Pt has sleep apnea. Pt started CPAP two days ago. Pt has not noticed any difference in terms of energy. Instructions Date Instruction Additional Infor mation Prescribed Activity and Exercise Education Related to Dietary Surveillance and Counseling Prescribed Diet Educ ation/Lifestyle Education Regarding Diet Related to Dietary Surveillance and Counseling Increase physical activity. Rela mason to Type [...] counseling Related to Di etary surveillance counseling Dietary counseling Related to Di etary surveillance counseling Decrease caloric intake Related to Dietary surveillance counseling Dietary counseling Related to Di etary surveillance counseling Decrease caloric intake Related to Dietary surveillance counseling Decrease caloric intake Related to Dietary surveillance counseling Dietary counseling Related to Di etary surveillance counseling Dietary counseling Related to Di [...] counseling Related to Di etary surveillance counseling Dietary counseling Related to Di [...] counseling Related to Di etary surveillance counseling Dietary counseling Related to Di [...] Mental Status Date Cognitive Assessment Orientation - [place] ed to time, place, person, situation.
--- OUTSIDE RECORDS SUMMARY | 2023-06-23 10:45 | XMS_ITS ---
Author Organization [facility] Address [address] [place] [phone] Care Team Providers Care Radiology Tech Name Role Phone Kelvin MEMBRENO, Andres Primary Care Provider Rudy Moses Unavailable [phone] ALLERGIES Allergen (clinical drug ingredient) Drug/Non Drug [...] for 30 day(s) Unknown Vitamin D (Ergocalciferol) 74968 UNIT 1 capsule Orally Once a week [...] smoker Encounters Encounter Location Date Provider Diagnosis [facility] [id number] 06/23/2023 Rudy Veloz Acute kidney failure , [...] has questioNs re Ozempic,pt advised to see asset protection officer re Ozempic and obesity/DM. Clinically appears euvlemic [...] has questioNs re Ozempic,pt advised to see asset protection officer re Ozempic and obesity/DM. Clinically appears euvlemic [...] has questioNs re Ozempic,pt advised to see asset protection officer re Ozempic and obesity/DM. Clinically appears euvlemic [...] has questioNs re Ozempic,pt advised to see asset protection officer re Ozempic and obesity/DM. Clinically appears euvlemic [...] has questioNs re Ozempic,pt advised to see asset protection officer re Ozempic and obesity/DM. Clinically appears euvlemic [...] has questioNs re Ozempic,pt advised to see asset protection officer re Ozempic and obesity/DM. Clinically appears euvlemic [...] has questioNs re Ozempic,pt advised to see asset protection officer re Ozempic and obesity/DM. Clinically appears euvlemic [...] has questioNs re Ozempic,pt advised to see asset protection officer re Ozempic and obesity/DM. Clinically appears euvlemic [...] has questioNs re Ozempic,pt advised to see asset protection officer re Ozempic and obesity/DM. Clinically appears euvlemic [...] has questioNs re Ozempic,pt advised to see asset protection officer re Ozempic and obesity/DM. Clinically appears euvlemic [...] ORAL CAVITY: mucosa moist LAB SUMMARY: ///// [id number] [id number] K5.44.64.94.75.35.2 [id number] Naithjw63.310.410.48.99.69.4 PO4 4.55.4 Albumin 2.833.1 [id number] EGFR [id number] Hgb8.5 8.49.19.8 Hct26.6 26.127.429.4 WBC9.9 119.48 [id number] Vit D 22.2 20.4 Iron 61 67 [...] for last 5-6 months,stopped recently. Pt states outer diameter technician started her on Kerrendia aling with Veltassa. Presenting symptoms Patient reported As above.
--- OUTSIDE RECORDS SUMMARY | 2023-06-24 11:15 | XMS_ITS ---
Author Organization [facility] Address [address] [place] [phone] Care Team Providers Care Fitting Room Supervisor Name Role Phone Kelvin MEMBRENO, Andres Primary Care Provider Rudy Moses Unavailable [phone] REASON FOR VISIT NO SHOW/RESCHEDULED MULTIPLE APPTS Encounters Encounter Location Date Provider Diagnosis [facility] [address] [id number] 06/24/2023 Rudy Veloz PLAN OF TREATMENT No Information
--- OUTSIDE RECORDS SUMMARY | 2024-11-01 15:00 | XMS_ITS | Encounter Summary ---
Author Organization [facility] Address [address] [place] [address] Care Team Providers Care Project Manager Finance Name Role Phone Matias Warren MD Primary Care Provider [phone] Encounter Details Date Type Department Care Team (Late st Contact Info) Description 11/01/2024 3:00 PM CDT Office Visit [facility] Oncology and Hematology - [place] [address] [facility] [address] [place] [address] Hector Krishna MD [address] [facility] [address] [place] [address] Chronic anemia (Primary Dx) Social History Tobacco Use Types Packs/Day Years Used Date Smoking Tobacco: Former Cigarettes 1 4 0 11/01/1990 - 11/01/1994 Smokeless Tobacco: Never Alcohol Use Standard Drinks/Week Comments Never 0 (1 standard drink = 0.6 oz pur e alcohol) Comments Unknown Sex and Gender Information Value Date Recorded Sex Assigned at Not on file Legal Sex Female 4:57 PM CDT Gender Identity Not on file Sexual Orientation Not on file documented as of this encounter Last Filed Vital Signs Vital Sign Reading Time Taken Comments Blood Pressure 186/93 11/01/2024 3:20 PM CDT Pulse 80 11/01/2024 3:16 PM CDT Temperature 36.7 C (98.1 F) 11/01/2024 3:16 PM CDT Respiratory Rate 16 11/01/2024 3:16 PM CDT Oxygen Saturation 92% 11/01/2024 3:16 PM CDT Inhaled Oxygen Concentration - - Weight 137.3 kg (302 lb 12.8 oz) 11/01/2024 3:16 PM CDT Height 162.6 cm (5' 4) 11/01/2024 3:16 PM CDT Body Mass Index 51.98 11/01/2024 3:16 PM CDT documented in this encounter Plan of Treatment Upcoming Encounters Date Type Department Care Team (Late st Contact Info) Description 11/10/2024 4:00 PM CDT Telephone Check Up [facility] Oncology and Hematology - [place] [address] [place] [address] Maryan Raya MD [address] [place] [address] Scheduled Orders Name Type Priority Associated Diagnoses Orde r Schedule CBC WITH DIFFERENTIAL Lab Stat Chronic anemia Expected: 11/01/2024, Expires: 11/01/2025 COMPREHENSIVE METABOLIC PANEL Lab Stat Chronic anemia Expected: 11/01/2024, Expires: 11/01/2025 ERYTHROPOIETIN LEVEL Lab Routine Chronic anemia Expected: 11/01/2024, Expires: 11/01/2025 FERRITIN Lab Routine Chronic anemia Expected: 11/01/2024, Expires: 11/01/2025 IRON, TIBC, AND PERCENT SATURATION Lab Routine Chronic anemia Expected: 11/01/2024, Expires: 11/01/2025 METHYLMALONIC ACID Lab Routine Chronic anemia Expected: 11/01/2024, Expires: 11/01/2025 TRANSFERRIN RECEPTOR TFR SOLUBLE Lab Routine Chronic anemia Expected: 11/01/2024, Expires: 11/01/2025 VITAMIN B12 AND FOLATE Lab Routine Chronic anemia Expected: 11/01/2024, Expires: 11/01/2025 PROTEIN ELECTROPHORESIS W/REFLEX,SERUM Lab Routine Chronic anemia Expected: 11/01/2024, Expires: 11/01/2025 documented as of this encounter Visit Diagnoses Diagnosis Chronic anemia- Primary Anemia, unspecified documented in this encounter Care Teams Project Manager Finance Relationship Specialty Start Date End Date Matias Warren MD [address] [place] [phone] PCP - General Family Practice 11/01/24 documented as of this encounter
--- OUTSIDE RECORDS SUMMARY | 2024-11-01 16:34 | XMS_ITS | Patient Health Record ---
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 Diabetic renal disease (128477812) Problem Type 2 diabetes mellitus with diabetic neuropathy, unspecified (E11.40) Active confirmed Diabetic peripheral neuropathy associated with type 2 diabetes mellitus (6506937785118) Problem 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) Active confirmed 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 (43898406046315) Problem Obesity, unspecified (E66.9) Active confirmed Obesity (440904360) Problem Vitamin D deficiency, unspecified (E55.9) Active confirmed Vitamin D deficiency (59325149) Problem Iron deficiency anemia, unspecified (D50.9) Active confirmed Iron deficiency anemia (26422214) PLAN OF TREATMENT Pending Test Test Name [...] Insured Coverage Start Date Coverage End Date [employer] [address] [place], [place] [id number] Joann Tavares Self - patient is the insured [place] [address] [place] [address] [phone] [id number] Joann Tavares Self - patient is the insured [facility] [address] [address] [place] [phone] [id number] Joann Tavares Self - patient is the [...]
--- OUTSIDE RECORDS SUMMARY | 2024-11-01 16:34 | XMS_ITS | Clinical Summary ---
Author Organization [facility] Address [address] [place] [address] Phone Care Team Providers Care Informatics Educator Name Role Phone Matias Warren MD Primary Care Provider [phone] Allergies Active Allergy Reactions Criticality Noted Date [...] Recently Relevant to Health Maintenance Insurance MEDICARE [facility] Care Teams Informatics Educator Relationship Specialty Start Date End Date Matias Warren MD [address] [place] [phone] PCP - General Family Medicine 07/09/23
--- OUTSIDE RECORDS SUMMARY | 2024-11-01 16:34 | XMS_ITS | Clinical Summary ---
Author Organization [facility] Address [address] [place] [phone] Care Team Providers Care Vp Training Name Role Phone Matias Warren MD Primary Care Provider [phone] Allergies Active Allergy Reactions Criticality Noted Date [...] as needed for cough 42 capsule 10/02/19 Active azithromycin (ZITHROMAX) 250 mg tabletIndicatio ns:Bronchitis Take [...] Department Care Team Description 10/02/2024 Results Follow-Up [facility] Convenient Care at [address] [phone] Arben Westbrook NP XR Chest Pa Lateral 2 Views 10/01/2024 3:59 PM CDT - 10/01/2024 11:59 PM CDT Hospital Encounter [facility] Radiology - Outpatient Center at [address] [address] Bronchitis Discharge Disposition: Discharge to home or self care 10/01/2024 3:15 PM CDT Office Visit [facility] Medical [facility] Convenient Care at [address] [phone] Maria Esther Kraft NP Bronchitis (Primary Dx); [...] 0.6 oz pur e alcohol) [facility] Utilities Answer Date Recorded In the past [...] often do you attend chur ch or orthodox services? 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 MJ: SISSY Report ID: [id number] Reading Location: [id number] Procedure Note Jeff Barnett MD - 10/02/2024 [...] Jeff Barnett M.D. MJ: SISSY Report ID: [id number] Reading Location: [place] [address] Maria Esther Kraft BRICKLAYER'S ASSISTANT IMG XR PROCEDURES Final Re sult * POC Influenza A/B, COVID-19 antigen (10/01/2024 3:40 PM CDT) [facility] Influenza A Ag, POC Negative Negative [facility] Influenza B Ag, POC Negative Negative [facility] COVID-19 Ag POC Presumptive Negative Presumptive Negative, Invalid [facility] Nasal 10/01/2024 3:40 PM CDT Maria Esther Kraft NP POINT OF CARE TEST ORDERAB LES Final Result [facility] [place] [id number] [phone] * POCT rapid strep A (10/01/2024 3:39 PM CDT) [facility] Rapid Strep A, POC Negative Negative Swab 10/01/2024 3:39 PM CDT Maria Esther Kraft BRICKLAYER'S ASSISTANT POINT OF CARE TEST ORDERAB LES Final Result * POCT respiratory syncytial virus (10/01/2024 3:35 PM CDT) RSV Rapid Ag Negative Negative, Invalid Nasopharyngeal 10/01/2024 3: 35 PM CDT Maria Esther Kraft BRICKLAYER'S ASSISTANT POINT OF CARE TEST ORDERAB LES Final Result from Last 3 Months Insurance [facility] MEDICARE [facility] MEDICARE [facility] MEDICARE ADVANTAGE Advance Directives For more information, please contact: [phone] * Full Code (Latest Code Status on File) Date Activated Date Inactivated Comments 07/23/2023 3:39 PM 07/25/2023 6:34 PM Care Teams Vp Training Relationship Specialty Start Date End Date Matias Warren MD [address] [place] [phone] PCP - General Internal Medicine 07/20/23
--- OUTSIDE RECORDS SUMMARY | 2024-11-01 16:34 | XMS_ITS | Clinical Summary ---
Author Organization [facility] [employer] [facility] [employer] [facility] Address [address] [address] Phone Care Team Providers Care Block Sawyer Name Role Phone Matias Warren MD Primary Care Provider [phone] Allergies Active Allergy Reactions Criticality Noted Date [...] time each day Active ergocalciferol 1.25 MG (46731 UT) capsule Take 50,000 Units by mouth [...] 8.6(A) 8.7 - 10.7 mg/dL eGFR Non-Afr Citizen Of [place] 25(L) Hemoglobin A1C 8.5(A) 4.0 - 6.0 Glucose, UA 4+ mg/dL Bilirubin, UA Negative Ketones, UA Negative Urine Specific Taylor 1.015 Blood, UA 3+ Randy/ul pH, UA [...] Recently Relevant to Health Maintenance Insurance Medicare [facility] Care Teams Block Sawyer Relationship Specialty Start Date End Date Matias Warren MD [address] [place] [phone] PCP - General Internal Medicine 07/24/23
--- OUTSIDE RECORDS SUMMARY | 2024-11-01 16:34 | XMS_ITS | Clinical Summary ---
Author Organization [facility] Address [address] [place] [address] Care Team Providers Care Gaming Host Name Role Phone Teresita Cortez MD Primary Care Provider [phone] Source Comments [facility] [employer],non-owned Affiliates and Associated Physician Practices is amultiple site organization consisting of ambulatory clinics and hospital sitesin [place], [place], [place] and [place]. This disclosure is being madepursuant to the Care Everywhere program and may not contain all information available regarding this patient. Last updated 17.[facility] [employer] Allergies Active Allergy Reactions Criticality Noted Date [...] Insurance MEDICAID - OUT OF STATE MEDICARE [facility] SELF PAY NO INSURANCE Member Subscriber Plan / Payer (Ef fective for All Dates) Name:Joann Tavares Member ID:Not on file Relation to Subscriber:Not on file Name:JOANN TAVARES Subscriber ID:Not on file (Home) Address: [facility] [place] [address] [address] Payer ID:Not on file Group ID:Not on file Type:Self Pay Address: [place], [place] Care Teams Gaming Host Relationship Specialty Start Date End Date Teresita Cortez MD [address] [place] [address] [address] [place] [phone] PCP - General 05/07/19
--- OUTSIDE RECORDS SUMMARY | 2024-11-01 16:34 | XMS_ITS | Encounter Summary ---
Author Organization [facility] Healthcare Address [address] [place] [address] Care Team Providers Care Pharmacy Customer Care Specialist Name Role Phone Matias Warren MD Primary Care Provider [phone] Encounter Details Date Type Department Care Team ([facility] st Contact Info) Description 10/02/2024 Results Follow-Up [facility] Medical Group Convenient Care at [address] [place] [address] Arben Westbrook, AVA [address] [facility] [place] [address] XR Chest Pa Lateral 2 Views Social History Tobacco Use Types Packs/Day Years Used Date Smoking Tobacco: Former Cigarettes 2015 Smokeless Tobacco: Never Alcohol Use Standard Drinks/Week Comments No 0 (1 standard drink = 0.6 oz pur e alcohol) [facility] Utilities Answer Date Recorded In the past 12 months has [employer], gas, oil, or water [email or web address] threatened to shut off services in your home? No 07/23/2023 Social Connection and Isolation Panel Answer Date Recorded In a typical week, how many times do you talk on the phone with family, friends, or neighbors? More than three times a week 07/23/2023 How often do you get togethe r with friends or relatives? Once a week 07/23/2023 How often do you attend [facility] or roman catholic services? 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
--- OUTSIDE RECORDS SUMMARY | 2024-11-01 16:35 | XMS_ITS | Clinical Summary ---
Author Organization [facility] Annemarie Jaime Address [address] [place] [address] Care Team Providers Care Pharmacovigilance Safety Expert Name Role Phone Matias Warren MD Primary Care Provider [phone] Allergies Active Allergy Reactions Criticality Noted Date Comments Cephalexin Hives,Rash High 12/21/2009 Other Reaction(s): Unknown Patient received ceftriaxone in May 2024 Ciprofloxacin Hives High 12/21/2009 Other Reaction(s): Unknown Morphine Hives High 12/21/2009 Other Reaction(s): Unknown Medications amLODIPine (NORVASC) 10 mg tablet Take 1 Tablet (10 mg) by mouth daily. 90 Tablet 4 12:45 PM CDT 12/18/19 24 Active torsemide (DEMADEX) 10 mg Tablet Take 1 tablet by mouth daily 90 Tablet 5 6:48 PM FORENSICS TEAM DIRECTOR 02/18/20 24 Active Insulin Syringe-Needle U-100 (BD Insulin Syringe Ultra-Fine) 1 mL 31 gauge x 5/16 Syringe USE FOR INSULIN INJECTIONS 200 Each 5 3:26 PM FORENSICS TEAM DIRECTOR 04/09/19 25 Active ferrous sulfate 325 mg (65 mg iron) tablet Take 1 Tablet (325 mg) by mouth daily. 100 Tablet 5 3:26 PM FORENSICS TEAM DIRECTOR 04/09/19 25 Active patiromer calcium sorbitex (Veltassa) [...] daily 30 Packet 11 5 3:26 PM FORENSICS TEAM DIRECTOR 04/09/19 25 Active amLODIPine (NORVASC) 10 mg tablet Take 1 Tablet (10 mg) by mouth daily. 90 Tablet 1 5 6:03 PM CDT 06/01/19 25 Active carvediloL (COREG) 25 mg tablet Take 1 Tablet (25 mg) by mouth 2 times daily. 180 Tablet 5 6:49 PM CDT 06/25/19 25 Active empagliflozin (JARDIANCE) 25 mg tablet Take 1 Tablet (25 mg) by mouth daily in the morning. 90 Tablet 5 4:14 PM CDT 07/26/19 25 Active diazePAM (VALIUM) 10 mg tablet Take 1 Tablet (10 mg) by mouth 3 times daily as needed for anxiety. 84 Tablet 5 7:32 PM CDT 08/24/19 25 Active insulin lispro (HumaLOG,ADMEL OG) 100 unit/mL pen syringe INJECT 14 UNITS WITH MEALS 15 mL 2 5 7:32 PM CDT 08/24/19 25 Active diazePAM (VALIUM) 10 mg tablet Take 1 tablet by mouth three times daily as needed for anxiety 84 Tablet 5 7:11 PM CDT 09/21/19 25 Active folic acid (FOLVITE) 1 mg tablet Take 1 Tablet (1 mg) by mouth daily. 90 Tablet 5 2:29 PM CDT 09/24/19 25 Active Insulin [place], Disposable, (BD Ultra-Fine Short Pen Needle) 31 gauge x 5/16 Needle Use with Insulin pen. 100 Each 3 5 2:29 PM CDT 09/24/19 25 Active insulin glargine (Lantus Solostar U-100 Insulin) 100 unit/mL pen syringe Inject 60 units under the skin once daily 15 mL 2 5 6:00 PM CDT 10/16/19 25 Active Blood-Glucose Sensor (Dexcom G6 Sensor) Device CHANGE DIRECTED. 3 Each 5 3:13 PM CDT 10/17/19 25 Active Blood-Glucose Transmitter (Dexcom G6 Transmitter) Device CHANGE DIRECTED. 1 Each 5 3:13 PM CDT 10/17/19 Active diazePAM (VALIUM) 10 mg tablet Take 1 Tablet (10 mg) by mouth 3 times daily as needed for anxiety. 84 Tablet 5 3:13 PM CDT 10/19/19 Active metOLazone (ZAROXOLYN) 2.5 mg tablet Take 1 Tablet (2.5 mg) by mouth 1 time daily as needed for swelling. 90 Tablet 10/19/19 Active ergocalciferol (Vitamin D2) 50,000 unit capsule Take 1 Capsule (50,000 Units) by mouth every 7 days. 13 Capsule 10/19/19 Active torsemide (DEMADEX) 20 mg tablet Take 1 Tablet (20 mg) by mouth daily with 10 mg to equal 30 mg total daily dose. 30 Tablet 11/02/19 Active insulin glargine-yfgn 100 unit/mL vial Inject 60 units at bedtime 30 mL 2 4 2:26 PM FORENSICS TEAM DIRECTOR 01/28/20 24 2024 Discontinued(A lternate therapy prescribed) insulin lispro (HumaLOG,ADMEL OG) 100 unit/mL pen syringe INJECT 14 UNITS WITH MEALS 15 mL 2 5 3:26 PM FORENSICS TEAM DIRECTOR 04/09/19 25 2024 Discontinued(D uplicate Therapy) Blood-Glucose Sensor (Dexcom G6 Sensor) Device CHANGE DIRECTED. 3 Each 5 6:03 PM CDT 06/01/19 25 2024 Discontinued Blood-Glucose Transmitter (Dexcom G6 Transmitter) Device CHANGE DIRECTED. 1 Each 5 6:03 PM CDT 06/01/19 25 2024 Discontinued insulin lispro (HumaLOG,ADMEL OG) 100 unit/mL pen syringe INJECT 14 UNITS WITH MEALS 15 mL 2 5 6:03 PM CDT 06/01/19 25 2024 Discontinued(D uplicate Therapy) empagliflozin (Jardiance) 25 mg tablet Take 1 Tablet (25 mg) by mouth daily in the morning. 90 Tablet 1 07/27/19 25 2024 Discontinued(D uplicate Therapy) metOLazone (ZAROXOLYN) 2.5 mg tablet Take 1 Tablet (2.5 mg) by mouth 1 time daily as needed for swelling. 90 Tablet 5 6:21 PM CDT 08/17/19 25 2024 Discontinued ergocalciferol (Vitamin D2) 50,000 unit capsule Take 1 Capsule (50,000 Units) by mouth every 7 days. 13 Capsule 5 7:32 PM CDT 08/24/19 25 2024 Discontinued insulin glargine-yfgn 100 unit/mL pen syringe Inject 60 Units by subcutaneous injection daily. 15 mL 08/24/19 25 2024 Discontinued(A lternate therapy prescribed) insulin glargine (Lantus Solostar U-100 Insulin) 100 unit/mL pen syringe Inject 60 units under the skin once daily 15 mL 5 7:32 PM CDT 08/24/19 25 2024 Discontinued torsemide (DEMADEX) 20 mg tablet TAKE ONE TABLET DAILY ALONG WITH A 10 MG TO EQUAL 30 MG DAILY 30 Tablet 5 2:29 PM CDT 09/24/19 25 2024 Discontinued metOLazone (ZAROXOLYN) 2.5 mg tablet Take 1 Tablet (2.5 mg) by mouth 1 time daily as needed for swelling. 90 Tablet 09/24/19 25 2024 Discontinued predniSONE (DELTASONE) 20 mg tablet Take 2 tablets (40 mg) by mouth daily for 5 days 10 Tablet 10/02/19 25 2024 amoxicillin-cl avulanate (AUGMENTIN) 875-125 mg tablet Take 1 Tablet by mouth every 12 hours for 7 days. 14 Tablet 5 4:58 PM CDT 10/12/19 25 2024 Encounters Date Type Department Care Team Description 11/01/2024 3:00 PM CDT Office Visit [facility] Oncology and Hematology - [place] [address] [place] [phone] Hector Krishna MD Chronic anemia (Primary Dx) 10/12/2024 External Device Data STL ABSTRACTION Provider, Abstract 09/22/2024 External Device Data STL ABSTRACTION Provider, Abstract 09/22/2024 External Device Data STL ABSTRACTION Provider, Abstract 08/24/2024 External Device Data STL ABSTRACTION Provider, Abstract 08/10/2024 External Device Data STL ABSTRACTION Provider, Abstract from Last 3 Months Family History Medical History Relation Name Comments No Known Problems Brother No Known Problems Child 1 No Known Problems Child 2 No Known Problems Child 3 Diabetes Father Colon Cancer Maternal Grandfather Hypertension Mother No Known Problems Sister 1 No Known Problems Sister 2 No Known Problems Sister 3 Relation Name Status Comments Brother Child 1 Alive Child 2 Alive Child 3 Alive Father Alive Maternal Grandfather Mother Alive Sister 1 Alive Sister 2 Alive Sister 3 Alive Social History Tobacco Use Types Packs/Day Years [...] Weight 137.3 kg (302 lb 12.8 oz) 2024 3:16 PM CDT Height 162.6 cm (5' 4) 11/01/2024 3:16 PM CDT Body Mass Index 51.98 11/01/2024 3:16 PM CDT Plan of Treatment Upcoming Encounters Date Type Department Care Team (Late st Contact Info) Description 11/10/2024 4:00 PM CDT Telephone Check Up [facility] Oncology and Hematology - [place] [address] [place] [address] Maryan Raya MD [address] [place] [address] Health Maintenance Due Date Last Done Comments DIABETES ANNUAL FOOT EXAM 1992 DIABETES ANNUAL RETINAL EXAM 1992 DIABETES MICROALBUMIN ANNUAL SCREEN 1992 LDL CHOLESTEROL ANNUAL 1992 HEPATITIS B VACCINES (1 of 3 - 19+ 3-dose series) 1993 10/10/2014 HPV/Cotest (21-29) 1995 CERVICAL CANCER SCREENING 2004 HPV/Cotest (30-65) 2004 PAP SMEAR 2004 BREAST CANCER SCREENING 2014 COLORECTAL SCREENING 2019 Colorectal Cancer Screening 2019 FIT-DNA Q 3 years 2019 FIT/FOBT Q 1 year 2019 Flex Sig/CT Colonography Q 5 years 2019 DIABETES HBA1C Q 6 MONTHS 01/21/2024 07/21/2023 Preventative Visit- Commercial 03/10/2024 ZOSTER VACCINE (1 of 2) 2024 INFLUENZA VACCINE (#1) 2024 , 12/03/2019, 02/04/2018, Additional history exists DTAP/TDAP/TD VACCINES (3 - T d or Tdap) 10/20/2024 10/20/2014, 10/10/2014 Insurance RX [employer] (INTERNAL) [facility] [employer] RX [employer] Member Subscriber Plan / Payer (Ef fective 2024-Present) Name:Joann Tavares Relation to Subscriber:Self Name:Joann Tavares Subscriber ID:Not on file Payer ID:Not on file Type:Not on file Address: [place] [address] [employer] Care Teams Pharmacovigilance Safety Expert Relationship Specialty Start Date End Date Matias Warren MD [address] [place] [phone] PCP - General Family Practice 11/01/24
[2024-11-01 17:04] LABS: Hematocrit 31.4 % (37.0-47.0); Hemoglobin 10.3 g/dL (12.0-15.0); Immature Granulocyte Percent A 0.4 % (0-0.5); Lymphocytes Absolute Auto 1.09 K/mm3 (0.9-3.2); Mean Corpuscular HGB Conc 32.8 g/dl (32-36); Mean Corpuscular Hemoglobin 27.3 pg (26-34); Mean Corpuscular Volume 83.3 fl (80-100); Nucleated Red Blood Cells Absolute Auto 0.000 K/mm3 (0.0-0.012); Nucleated Red Blood Cells Perc 0.0 % (0.0-0.2); Platelet Count Result 289 k/mm3 (150-375); Red Blood Count 3.77 M/mm3 (4.2-5.4); White Blood Count 7.3 K/mm3 (4.5-10.0)
[2024-11-01 17:31] LABS: Alanine Aminotransferase 17 U/L (6-35); Albumin Level 3.7 g/dL (3.5-5.1); Alkaline Phosphatase 84 U/L (38-126); Anion Gap 10 mmol/L (4-12); Aspartate Amino Transferase 21 U/L (14-36); Bilirubin,Total 0.4 mg/dL (0.2-1.3); Blood Urea Nitrogen 93 mg/dL (7-17); Calcium 9.9 mg/dL (8.4-10.2); Carbon Dioxide 22 mmol/L (22-30); Chloride 99 mmol/L (98-107); Estimated Glomerular Filt Rate 11; Glucose 285 mg/dL (65-110); Potassium 4.3 mmol/L (3.4-5.0); Sodium 131 mmol/L (137-145); Total Protein 7.3 g/dL (6.3-8.2)
[2024-11-01 17:36] LABS: Iron 40 ug/dL (37-170)
[2024-11-01 17:40] LABS: Percent Iron Saturation 11 % (20-50)
[2024-11-01 18:12] LABS: Ferritin 70.10 ng/mL (11.1-264)
[2024-11-01 18:50] LABS: Vitamin B12 625.0 pg/mL (239-931)
[2024-11-03 14:08] LABS: Albumin 2.7 g/dL (2.9-4.4); Alpha-1-Globulin 0.4 g/dL (0.0-0.4); Alpha-2-Globulin 1.0 g/dL (0.4-1.0); Gamma Globulin 1.0 g/dL (0.4-1.8)
== END 2024-11-01 16:29 | disposition home or self-care (01) ==
LOC: ANHLAB 16:30
PROVIDERS: Visit Provider Internal Medicine Hematology & Oncology
DX: D64.9 Anemia, unspecified (principal)
CPT/HCPCS: 36415; 80053; 82607; 82668; 82728; 82746; 83540; 83550; 84155; 84165; 84238; 85025

== ENCOUNTER 2024-11-24 15:58 | Emergency (ER) | payer OTHER, SELFPAY ==
--- OUTSIDE RECORDS SUMMARY | 2016-10-14 11:30 | XMS_ITS | Continuity of Care Document ---
Author Organization [facility] Address [address] [address] [place] [address] Phone Care Team Providers Care Night Shift Name Role Phone Rocky Spence MD Unavailable Unavailable Allergies, Adverse Reactions, Alerts Substance Reaction Status Criticality CIPROFLOXACIN HCL Active No Informa tion ciprofloxacin Active No Information ofloxacin Active No Information morphine Active No Information MEPERIDINE HCL Active No Informatio n Medications Medication Instructions Dosage Effective Dates (start - stop) Status Comments Xanax 2 mg tablet take 1 tablet (2MG) by oral route 3 times every day - Active avoid driving or operate machines Lantus 100 unit/mL subcutaneous solution inject by subcutaneous route as per insulin protocol 0.00 - Active 60 unis in the morning Norvasc 10 mg tablet take 1 tablet by oral route every day 10 MG - Active Diovan HCT 160 mg-25 mg tablet take 1 tablet by oral route every day 1.00 tablet - Active clonidine HCl 0.2 mg tablet take 1 tablet by oral route 2 times every day 0.2 MG - Active Novolog 100 unit/mL subcutaneous solution inject by subcutaneous route per prescriber's instructions. Insulin dosing requires individualization. 0.00 - Active 20 units SC TID before meal FreeStyle Lite Strips TEST 3 TIMES A DAY - Active E11.8 Flow-Aba Vented Needle use qID - Active e11.9 Alcohol Pads QID with insulin injection - Active 100 per box Monoject 140cc Piston Syringe as directed - Active TID 250.02 Procedures Procedure Date OFFICE/OUTPATIENT VISIT, EST OFFICE/OUTPATIENT VISIT, EST OFFICE/OUTPATIENT VISIT, EST OFFICE/OUTPATIENT VISIT, EST OFFICE/OUTPATIENT VISIT, EST PREV VISIT, EST, AGE 40-64 OFFICE/OUTPATIENT VISIT, EST OFFICE/OUTPATIENT VISIT, EST OFFICE/OUTPATIENT VISIT, EST OFFICE/OUTPATIENT VISIT, EST OFFICE/OUTPATIENT VISIT, EST OFFICE/OUTPATIENT VISIT, EST OFFICE/OUTPATIENT VISIT, EST -2015 OFFICE/OUTPATIENT VISIT, EST OFFICE/OUTPATIENT VISIT, EST OFFICE/OUTPATIENT VISIT, EST -2014 OFFICE/OUTPATIENT VISIT, EST OFFICE/OUTPATIENT VISIT, EST -2014 OFFICE/OUTPATIENT VISIT, EST OFFICE/OUTPATIENT VISIT, EST OFFICE/OUTPATIENT VISIT, EST OFFICE/OUTPATIENT VISIT, EST OFFICE/OUTPATIENT VISIT, EST OFFICE/OUTPATIENT VISIT, EST -2014 OFFICE/OUTPATIENT VISIT, EST -2014 OFFICE/OUTPATIENT VISIT, EST OFFICE/OUTPATIENT VISIT, EST -2013 OFFICE/OUTPATIENT VISIT, EST OFFICE/OUTPATIENT VISIT, EST OFFICE/OUTPATIENT VISIT, EST -2013 OFFICE/OUTPATIENT VISIT, EST OFFICE/OUTPATIENT VISIT, EST OFFICE/OUTPATIENT VISIT, EST OFFICE/OUTPATIENT VISIT, EST OFFICE/OUTPATIENT VISIT, EST OFFICE/OUTPATIENT VISIT, EST OFFICE/OUTPATIENT VISIT, EST -2013 OFFICE/OUTPATIENT VISIT, EST OFFICE/OUTPATIENT VISIT, EST OFFICE/OUTPATIENT VISIT, EST OFFICE/OUTPATIENT VISIT, EST OFFICE/OUTPATIENT VISIT, EST OFFICE/OUTPATIENT VISIT, EST OFFICE/OUTPATIENT VISIT, EST OFFICE/OUTPATIENT VISIT, EST OFFICE/OUTPATIENT VISIT, EST OFFICE/OUTPATIENT VISIT, EST OFFICE/OUTPATIENT VISIT, EST OFFICE/OUTPATIENT VISIT, EST OFFICE/OUTPATIENT VISIT, EST OFFICE/OUTPATIENT VISIT, EST OFFICE/OUTPATIENT VISIT, EST OFFICE/OUTPATIENT VISIT, EST OFFICE/OUTPATIENT VISIT, EST Advance Directives Directive Yes / No Effective Date File Name No Information Encounters Encounter Description Practice Location Reason(s) For Visit Diagnoses Date Provider Providers Copied on Encounter OFFICE/OUTPA TIENT VISIT, EST [facility], [address] [place], [address], tel:[phone] [facility] DM (chief complaint)s leep apnea1 (chief complaint)p roteinuria1 (chief complaint)l ow iron (chief complaint)a nxiety1 (chief complaint) Type 2 diabetes mellitus with diabetic nephropathyEssenti al (primary) hypertensionSleep apneaBody mass index (BMI) 50-59.9 , adult 7 Jordy Hidalgo. [address], [place], [place], [address] , [place]. tel:[phone] Referring Provider: Rocky Spence [address], [place], [place], [address]. tel:[phone] [facility], [address] [place], [address], [place] tel:[phone] [facility] No Information 7 Jordy Hidalgo. [address], [place], [place], [address] , [place]. tel:[phone] OFFICE/OUTPA TIENT VISIT, EST [facility], [address] [place], [address], [place] tel:[phone] [facility] DM1 (chief complaint)H TN (chief complaint)a neity1 (chief complaint)o beisty1 (chief complaint) Type 2 diabetes mellitus without complicationsEssen tial (primary) hypertensionBody mass index (BMI) 50-59.9 , adultAnxiolytic dependence Fercho- 7 Jordy Soto [address], [place], [place], [address] , [place]. tel:[phone] [facility], [address], [place], [place], [address], [place] tel:[phone] [facility] No Information 7 Jordy Soto [address], [place], [place], [address] , [place]. tel:[phone] OFFICE/OUTPA TIENT VISIT, [facility], [address], [place], [place], [address], [place] tel:[phone] [facility] HTN (chief complaint)s leep apnea1 (chief complaint)a nxiety1 (chief complaint)D M (chief complaint) Sleep apneaEssential (primary) hypertensionType 2 diabetes mellitus without complicationsAnxio lytic dependence 7 Jordy Soto [address], [address], [place], [place], [address] , [place]. tel:[phone] [facility], [address], [place], [place], [address], [place] tel:[phone] [facility] No Information 7 Jordy Soto [address], [place], [place], [address] , [place]. tel:[phone] OFFICE/OUTPA TIENT VISIT, [facility], [address], [place], [place], [address], [place] tel:[phone] [facility] DM (chief complaint)H TN (chief complaint)a nxiety1 (chief complaint)a nemia1 (chief complaint) Type 2 diabetes mellitus without complicationsAnxio lytic dependenceEssentia l (primary) hypertensionBody mass index (BMI) 50-59.9 , adult Fe- 7 Jordy Soto [address], [address], [place], [place], [address] , [place]. tel:[phone] Referring Provider: Wilfred Lopez [address], [place], [place], [address]. tel:[phone] OFFICE/OUTPA TIENT VISIT, EST [facility], [address], [place], [place], [address], [place] tel:[phone] [facility] HTN (chief complaint)a nxiety1 (chief complaint)D M (chief complaint) Essential (primary) hypertensionType 2 diabetes mellitus without complicationsAnxio lytic dependenceBody mass index (BMI) 50-59.9 , adult Feb- 6 Jordy Hidalgo. [address], [address], [place], [place], [address] , [place]. [phone] Referring Provider: Wilfred Lopez [address], [place], [place], [address]. tel:[phone] PREV VISIT, EST, AGE 40-64 [facility], [address], [place], [place], [address], [place] tel:[phone] [facility] PHysical (chief complaint) Encntr for general adult medical exam w/o abnormal findings 6 Jordy Hidalgo. [address], [address], [place], [place], [address] , [place]. [phone] Referring Provider: Wilfred Lopez [address], [place], [place], [address]. tel:[phone] OFFICE/OUTPA TIENT VISIT, EST [facility], [address], [place], [place], [address], [place] tel:[phone] [facility] DM (chief complaint)H TN (chief complaint)a nxiety1 (chief complaint)i silvino deficiecy (chief complaint) Iron deficiencyEssentia l (primary) hypertensionAnxiol ytic dependenceType 2 diabetes mellitus without complications 0 6 Jordy Hidalgo. [address], [address], [place], [place], [address] , [place]. [phone] [facility], [address], [place], [place], [address], [place] tel:[phone] [facility] No Information 6 Jordy Hidalgo. [address], [place], [place], [address] , [place]. tel:[phone] OFFICE/OUTPA TIENT VISIT, [facility], [address], [place], [place], [address], [place] tel:[phone] [facility] HTN (chief complaint)D M (chief complaint)a nixety1 (chief complaint) Type 2 diabetes mellitus without complicationsEssen tial (primary) hypertensionAnxiol ytic dependence 6 Jordy Hidalgo. [address], [place], [place], [address] , [place]. [phone] Referring Provider: Wilfred Lopez [address], [place], [place], [address]. tel:[phone] OFFICE/OUTPA TIENT VISIT, [facility], [address], [place], [place], [address], [place] tel:[phone] [facility] DM (chief complaint)a nxiety1 (chief complaint)H TN (chief complaint) Type 2 diabetes mellitus without complicationsAnxio lytic dependenceEssentia l (primary) hypertension 6 Jordy Hidalgo. [address], [place], [place], [address] , [place]. [phone] Referring Provider: Wilfred Lopez [address], [place], [place], [address]. tel:[phone] OFFICE/OUTPA TIENT VISIT, [facility], [address], [place], [place], [address], [place] tel:[phone] [facility] HTN (chief complaint)D M (chief complaint)a nxiety1 (chief complaint) Essential (primary) hypertensionType 2 diabetes mellitus without complicationsAnxio lytic dependence 6 Jordy Hidalgo. [address], [place], [place], [address] , [place]. tel:[phone] Referring Provider: Wilfred Lopez [address], [place], [place], [address]. tel:[phone] OFFICE/OUTPA TIENT VISIT, [facility], [address], [place], [place], [address], [place] tel:[phone] [facility] DM (chief complaint)i silvino deficiency (chief complaint)p roteinuria (chief complaint)H TN (chief complaint) Type 2 diabetes mellitus without complicationsProte inuriaIron deficiencyEssentia l (primary) hypertension 6 Jordy Hidalgo. [address], [place], [place], [address] , [place]. tel:[phone] Referring Provider: Wilfred Lopez [address], [place], [place], [address]. tel:[phone] OFFICE/OUTPA TIENT VISIT, [facility], [address], [place], [place], [address], [place] tel:[phone] [facility] DM (chief complaint)a nxiety1 (chief complaint)H TN (chief complaint) Type 2 diabetes mellitus without complicationsAnxio lytic dependenceEssentia l (primary) hypertensionTachyc ardia 6 Jordy Hidalgo. [address], [place], [place], [address] , [place]. [phone] Referring Provider: Wilfred Lopez [address], [place], [place], [address]. tel:[phone] OFFICE/OUTPA TIENT VISIT, [facility], [address], [place], [place], [address], [place] tel:[phone] [facility] HTN1 (chief complaint)d M (chief complaint)a nxiety1 (chief complaint) Type 2 diabetes mellitus without complicationsEssen tial (primary) hypertensionAnxiol ytic dependence 6 Jordy Hidalgo. [address], [place], [place], [address] , [place]. tel:[phone] Referring Provider: Wilfred Lopez [address], [place], [place], [address]. tel:[phone] OFFICE/OUTPA TIENT VISIT, [facility], [address], [place], [place], [address], [place] tel:[phone] [facility] HTN (chief complaint)D M (chief complaint)a nxiety1 (chief complaint) Type 2 diabetes mellitus without complicationsAnxio lytic dependenceEssentia l (primary) hypertensionEncoun ter for oth screening for malignant neoplasm of breast 6 Jordy Hidalgo. [address], [address], [place], [place], [address] , [place]. [phone] Referring Provider: Wilfred Lopez [facility], [place], [place], [address]. tel:[phone] OFFICE/OUTPA TIENT VISIT, [facility], [address], [place], [place], [address], [place] tel:[phone] [facility] HTN1 (chief complaint)D M1 (chief complaint)A nxiety1 (chief complaint)S ick1 (chief complaint) Type 2 diabetes mellitus without complicationsEssen tial (primary) hypertensionAcute upper respiratory infection, unspecifiedAnxioly tic dependence 5 Jordy Hidalgo. [address], [place], [place], [address] , [place]. [phone] Referring Provider: Wilfred Lopez [facility] A, [place], [place], [address]. tel:[phone] OFFICE/OUTPA TIENT VISIT, [facility], [address], [place], [place], [address], [place] tel:[phone] [facility] HTN1 (chief complaint)D M1 (chief complaint)a nxiety1 (chief complaint)n oncompliant (chief complaint)c hest pain1 (chief complaint) Essential (primary) hypertensionType 2 diabetes mellitus without complications 5 Jordy Soto [address], [place], [place], [address] , [place]. tel:[phone] Referring Provider: Wilfred Lopez [address], [place], [place], [address]. tel:[phone] OFFICE/OUTPA TIENT VISIT, [facility], [address], [place], [place], [address], tel:[phone] [facility] DM1 (chief complaint)A nxiety1 (chief complaint)H TN1 (chief complaint)s leep apnea1 (chief complaint) Dietary surveillance and counselingType 2 diabetes mellitus w/o complicationEssent ial (primary) hypertensionOther sleep apnea 5 Jordy Hidalgo. [address], [place], [place], [address] , [place]. tel:[phone] Referring Provider: [address], [place], [place], [address]. tel:[phone] OFFICE/OUTPA TIENT VISIT, [facility], [address] [place] [place], [address], [place] tel:[phone] [facility] DM (chief complaint)H TN (chief complaint)a nxiety (chief complaint) Dietary surveillance and counselingBrittle diabetesUnspecifie d essential hypertensionCurren t use of insulin 5 Jordy Soto [address], [place], [place], [address] , [place]. tel:[phone] Referring Provider: [address], [place], [place], [address]. tel:[phone] OFFICE/OUTPA TIENT VISIT, [facility], [address] [place], [place], [address], [place] tel:[phone] [facility] HTN (chief complaint)D M (chief complaint)s leep apnea (chief complaint) Dietary surveillance and counselingUnspecif ied essential hypertensionUnspec ified sleep apneaBrittle diabetesBMI 50.0 to 59.9 5 Jordy Soto [address], [place], [place], [address] , [place]. tel:[phone] Referring Provider: Rocky Spence, [address], [place], [place], [address]. tel:[phone] OFFICE/OUTPA TIENT VISIT, [facility], [address], [place], [place], [address], [place] tel:[phone] [facility] fatty liver (chief complaint)D M (chief complaint)H TN (chief complaint) Dietary surveillance and counselingUnspecif ied essential hypertensionOther specified disorders of liverBrittle diabetes 5 Jordy Hidalgo. [address], [place], [place], [address] , [place]. tel:[phone] Referring Provider: Rocky Spence, [address], [place], [place], [address]. tel:[phone] [facility], [address], [place], [place], [address], [place] tel:[phone] [facility] No Information 5 Jordy Hidalgo. [address], [place], [place], [address] , [place]. tel:[phone] OFFICE/OUTPA TIENT VISIT, [facility], [address], [place], [place], [address], [place] tel:[phone] [facility] Anxiety (chief complaint)D M (chief complaint) Dietary surveillance and counselingBrittle diabetesBlood pressure elevated 5 Jordy Hidalgo. [address], [place], [place], [address] , [place]. tel:[phone] Referring Provider: Rocky Spence, [address], [place], [place], [address]. tel:[phone] OFFICE/OUTPA TIENT VISIT, [facility], [address], [place], [place], [address], [place] tel:[phone] [facility] sleep apnea (chief complaint)A nxeity (chief complaint)D M (chief complaint) Dietary surveillance and counselingUnspecif ied sleep apneaBrittle diabetesUnspecifie d disorder of liver 5 Jordy Hidalgo. [address], [place], [place], [address] , [place]. tel:[phone] Referring Provider: Wilfred Lopez [address], [place], [place], [address]. tel:[phone] OFFICE/OUTPA TIENT VISIT, [facility], [address], [place], [place], [address], [place] tel:[phone] [facility] DM (chief complaint)s leep apnea (chief complaint)a nxiety (chief complaint) Dietary surveillance and counselingDiabetes Mellitus Type 2, UncomplicatedSleep ApneaUnspecified disorder of liver 5 Jordy Hidalgo. [address], [place], [place], [address] , [place]. [phone] Referring Provider: Wilfred Lopez [address], [place], [place], [address]. tel:[phone] OFFICE/OUTPA TIENT VISIT, [facility], [address], [place], [place], [address], [place] tel:[phone] [facility] DM (chief complaint)H TN (chief complaint)s leep apnea (chief complaint)L FT (chief complaint) Dietary surveillance and counselingDiabetes Mellitus Type 2, UncomplicatedHyper tension, UnspecifiedUnspeci fied disorder of liverSleep Apnea 5 Jordy Hidalgo. [address], [place], [place], [address] , [place]. [phone] Referring Provider: Wilfred Lopez [address], [place], [place], [address]. tel:[phone] OFFICE/OUTPA TIENT VISIT, [facility], [address], [place], [place], [address], [place] tel:[phone] [facility] anxiety (chief complaint)D M (chief complaint) Dietary surveillance and counselingDiabetes Mellitus Type 2, UncomplicatedSleep ApneaSedative, hypnotic or anxiolytic dependence, unspecified Fe 5 Jordy Hidalgo. [address], [place], [place], [address] , [place]. [phone] Referring Provider: Rocky Spence, [address], [place], [place], [address]. tel:[phone] OFFICE/OUTPA TIENT VISIT, [facility], [address], [place], [place], [address], [place] [phone] [facility] DM (chief complaint)a nxiety (chief complaint)H TN (chief complaint)s leep apnea (chief complaint) Dietary surveillance and counselingDiabetes Mellitus, Adult Onset, UncontrolledHypert ension, UnspecifiedSleep Apnea 5 Jordy Hidalgo. [address], [place], [place], [address] , [place]. tel:[phone] Referring Provider: Wilfred Lopez [address], [place], [place], [address]. tel:[phone] OFFICE/OUTPA TIENT VISIT, [facility], [address], [place], [place], [address], [place] tel:[phone] [facility] DM (chief complaint)s leep apnea (chief complaint)a nxiety (chief complaint) Dietary surveillance and counselingDiabetes Mellitus Type 2, UncomplicatedSleep ApneaCentral hearing lossHypertension, Unspecified 4 Jordy Hidalgo. [address], [place], [place], [address] , [place]. [phone] Referring Provider: Wilfred Lopez [address], [place], [place], [address]. tel:[phone] OFFICE/OUTPA TIENT VISIT, [facility], [address], [place], [place], [address], [place] tel:[phone] [facility] DM (chief complaint)l ow iron (chief complaint)a nxiety (chief complaint) AnemiaHypertension , UnspecifiedDiabete s Mellitus, Adult Onset, UncontrolledDietar y surveillance and counseling 4 Jordy Hidalgo. [address], [place], [place], [address] , . tel:[phone] Referring Provider: Rocky Spence, [address], [place], [place], [address]. tel:[phone] OFFICE/OUTPA TIENT VISIT, [facility], [address], [place], [place], [address], [place] tel:[phone] [facility] finger infection (chief complaint)a nxiety (chief complaint)D M (chief complaint) Dietary surveillance and counselingDiabetes Mellitus, Adult Onset, UncontrolledOnychi a and paronychia of fingerSleep ApneaHypertension, Unspecified 4 Jordy Hidalgo. [address], [place], [place], [address] , . tel:[phone] Referring Provider: Wilfred Lopez [address], [place], [place], [address]. tel:[phone] OFFICE/OUTPA TIENT VISIT, [facility], [address], [place], [address], [place] tel:[phone] [facility] headache (chief complaint)a nxiety (chief complaint)s leep apnea (chief complaint)t innitus (chief complaint) Dietary surveillance and counselingHeadache Sleep ApneaCentral hearing loss 4 Jordy Hidalgo. [address], [place], [place], [address] , [place]. tel:[phone] Referring Provider: Wilfred Lopez [address], [place], [place], [address]. tel:[phone] OFFICE/OUTPA TIENT VISIT, [facility], [address], [place], [place], [address], [place] tel:[phone] [facility] DM (chief complaint)a nxiety (chief complaint)h and numbness (chief complaint) Dietary surveillance and counselingDiabetes Mellitus Type 2, UncomplicatedDistu rbance of skin sensationCervicalg ia 4 Jordy Hidalgo. [address], [place], [place], [address] , [place]. tel:[phone] Referring Provider: Wilfred Lopez [address], [place], [place], [address]. tel:[phone] OFFICE/OUTPA TIENT VISIT, [facility], [address], [place], [place], [address], [place] tel:[phone] [facility] DM (chief complaint)H TN (chief complaint)a nxiety (chief complaint)d izziness (chief complaint)s leep apnea (chief complaint) Diabetes Mellitus Type 2, UncomplicatedVerti goHypertension, UnspecifiedSleep Apnea 4 Jordy Hidalgo. [address], [place], [place], [address] , . tel:[phone] Referring Provider: Wilfred Lopez [address], [place], [place], [address]. tel:[phone] OFFICE/OUTPA TIENT VISIT, [facility], [address] [place], [address], [place] tel:[phone] [facility] DM (chief complaint)a nxiety (chief complaint)H TN (chief complaint) Dietary surveillance and counselingDiabetes Mellitus, Adult Onset, UncontrolledHypert ension, Unspecified 4 Jordy Hidalgo. [address], [place], [place], [address] , [place]. tel:[phone] Referring Provider: Wilfred Lopez [address], [place], [place], [address]. tel:[phone] OFFICE/OUTPA TIENT VISIT, [facility], [address], [place], [place], [address], [place] tel:[phone] [facility] Tinnitus (chief complaint)a nxiety (chief complaint)D M (chief complaint) Tinnitus, unspecifiedVertigo Diabetes Mellitus Type 2, UncomplicatedDieta ry surveillance and counseling 4 Jordy Hidalgo. [address], [place], [place], [address] , . tel:[phone] Referring Provider: Wilfred Lopez [address], [place], [place], [address]. tel:[phone] OFFICE/OUTPA TIENT VISIT, [facility], [address], [place], [place], [address], tel:[phone] [facility] DM (chief complaint)H TN (chief complaint)a nxiety (chief complaint) Dietary surveillance and counselingDiabetes Mellitus Type 2, UncomplicatedHyper tension, Unspecified 4 Jordy Hidalgo. [address], [place], [place], [address] , [place]. tel:[phone] Referring [facility]: [facility] [place], [place], [address]. tel:[phone] OFFICE/OUTPA TIENT VISIT, [facility], [address], [place], [place], [address], [place] tel:[phone] [facility] shingle (chief complaint)A nxiety (chief complaint)S inus (chief complaint)D M (chief complaint) Dietary surveillance and counselingHerpes zoster without mention of complicationSinusi tis, AcuteTinnitus, unspecifiedDiabete s Mellitus, Adult Onset, Uncontrolled 4 Jordy Hidalgo. [address], [address], [place], [place], [address] , [place]. tel:[phone] Referring Provider: Wilfred Lopez [address], [place], [place], [address]. tel:[phone] OFFICE/OUTPA TIENT VISIT, [facility], [address], [place], [place], [address], [place] tel:[phone] [facility] anxiety (chief complaint)e ar pain (chief complaint)b ack pain (chief complaint) Dietary surveillance and counselingDietary surveillance and counselingTinnitus , unspecifiedLumbago Otalgia, unspecified 4 Jordy Hidalgo. [address], [address], [place], [place], [address] , [place]. tel:[phone] Referring Provider: Wilfred Lopez [address], [place], [place], [address]. tel:[phone] OFFICE/OUTPA TIENT VISIT, [facility], [address], [place], [place], [address], [place] tel:[phone] [facility] HTN (chief complaint)D M (chief complaint)a nxiety (chief complaint) Dietary surveillance and counselingHyperten sarah, UnspecifiedDiabete s Mellitus, Adult Onset, Uncontrolled 4 Jordy Hidalgo. [address], [address], [place], [place], [address] , [place]. [phone] Referring Provider: Wilfred Lopez [address], [place], [place], [address]. tel:[phone] OFFICE/OUTPA TIENT VISIT, [facility], [address], [place], [place], [address], [place] tel:[phone] [facility] DM (chief complaint)a nxiety (chief complaint) Dietary surveillance and counselingHyperten sarah, UnspecifiedDiabete s Mellitus, Adult Onset, Uncontrolled 4 Jordy Hidalgo. [address], [place], [place], [address] , [place]. tel:[phone] Referring Provider: Wilfred Lopez [address], [place], [place], [address]. tel:[phone] OFFICE/OUTPA TIENT VISIT, [facility], [address], [place], [address], [place] tel:[phone] [facility] anxiety (chief complaint)U RI (chief complaint)D M (chief complaint) Dietary surveillance and counselingDiabetes Mellitus, Adult Onset, UncontrolledAcute upper respiratory infections of other multiple sites 3 Jordy Hidalgo. [address], [place], [place], [address] , [place]. tel:[phone] Referring Provider: Rocky Spence [address], [place], [place], [address]. tel:[phone] OFFICE/OUTPA TIENT VISIT, [facility], [address], [place], [address], [place] tel:[phone] [facility] HTN (chief complaint)D M (chief complaint)a nxiety (chief complaint) Dietary surveillance and counselingHyperten sarah, UnspecifiedDiabete s Mellitus, Adult Onset, Uncontrolled 3 Jordy Hidalgo. [address], [place], [place], [address] , [place]. tel:[phone] OFFICE/OUTPA TIENT VISIT, [facility], [address], [place], [place], [address], [place] tel:[phone] [facility] HTN (chief complaint)a nxiety (chief complaint)f atigue (chief complaint) Dietary surveillance and counselingLumbagoH ypertension, UnspecifiedSleep Apnea 3 Jordy Hidalgo. [address], [place], [place], [address] , [place]. tel:[phone] Referring Provider: Wilfred Lopez [address], [place], [place], [address]. tel:[phone] OFFICE/OUTPA TIENT VISIT, [facility], [address], [place], [address], [place] tel:[phone] [facility] HTN (chief complaint)D M (chief complaint)a nxiety (chief complaint) Dietary surveillance and counselingLumbagoH ypertension, UnspecifiedDiabete s Mellitus Type 2, Uncomplicated 3 Jordy Hidalgo. [address], [place], [place], [address] , [place]. tel:[phone] Referring Provider: Wilfred Lopez [address], [place], [place], [address]. tel:[phone] OFFICE/OUTPA TIENT VISIT, [facility], [address], [place], [place], [address], [place] tel:[phone] [facility] anemia (chief complaint)D M (chief complaint)a nxiety (chief complaint) AnemiaHypertension , UnspecifiedDiabete s Mellitus Type 2, UncomplicatedDieta ry surveillance and counseling 3 Jordy Hidalgo. [address], [place], [place], [address] , [place]. [phone] Referring Provider: Rocky Spence, [address], [place], [place], [address]. tel:[phone] OFFICE/OUTPA TIENT VISIT, [facility], [address], [place], [place], [address], [place] tel:[phone] [facility] anemia (chief complaint)D M (chief complaint)H TN (chief complaint) AnemiaDietary surveillance and counselingDiabetes Mellitus, Adult Onset, UncontrolledHypert ension, Unspecified 3 Jordy Hidalgo. [address], [place], [place], [address] , [place]. tel:[phone] Referring Provider: Rocky Spence [address], [place], [place], [address]. tel:[phone] OFFICE/OUTPA TIENT VISIT, [facility], [address], [place], [place], [address], [place] tel:[phone] [facility] anxiety (chief complaint)D M (chief complaint)b ronchitis (chief complaint) Dietary surveillance and counselingDiabetes Mellitus, Adult Onset, UncontrolledHypert ension, UnspecifiedBronchi tis, Acute 3 Jordy Stoo [address], [place], [place], [address] , [place]. [phone] Referring Provider: Rocky Spence [address], [place], [place], [address]. tel:[phone] OFFICE/OUTPA TIENT VISIT, [facility], [address], [place], [place], [address], [place] tel:[phone] [facility] HTN (chief complaint)a nxiety (chief complaint)s ick (chief complaint) Acute upper respiratory infections of other multiple sitesHypertension, UnspecifiedDiabete s Mellitus, Adult Onset, Uncontrolled 3 Jordy Hidalgo. [address], [place], [place], [address] , [place]. [phone] Referring Provider: Rocky Spence, [address], [place], [place], [address]. tel:[phone] OFFICE/OUTPA TIENT VISIT, [facility], [address], [place], [place], [address], [place] tel:[phone] [facility] HTN (chief complaint)D M (chief complaint)a nxiety (chief complaint) Dietary surveillance and counselingHyperten sarah, UnspecifiedDiabete s Mellitus, Adult Onset, Uncontrolled Jun- 3 Jordy Hidalgo. [address], [place], [place], [address] , [place]. [phone] Referring Provider: Wilfred Lopez [address], [place], [place], [address]. tel:[phone] OFFICE/OUTPA TIENT VISIT, [facility], [address], [place], [place], [address], [place] tel:[phone] [facility] HTN (chief complaint)V ision chanage (chief complaint)A nemia (chief complaint) Dietary surveillance and counselingAnemiaDi abetes Mellitus, Adult Onset, UncontrolledHypert ension, UnspecifiedCarotid Artery Disease, Unilateral 3 Jordy Hidalgo. [address], [place], [place], [address] , [place]. [phone] Referring Provider: Wilfred Lopez [address], [place], [place], [address]. tel:[phone] OFFICE/OUTPA TIENT VISIT, [facility], [address], [place], [place], [address], [place] tel:[phone] [facility] cough (chief complaint)H TN (chief complaint) Dietary surveillance and counselingAcute upper respiratory infections of other multiple sitesHypertension, UnspecifiedDiabete s Mellitus, Adult Onset, Uncontrolled 3 Jordy Hidalgo. [address], [place], [place], [address] , [place]. [phone] Referring Provider: Wilfred [address], [place], [place], [address]. tel:[phone] OFFICE/OUTPA TIENT VISIT, [facility], [address], [place], [place], [address], [place] tel:[phone] [facility] anxiety (chief complaint)H TN (chief complaint)D M (chief complaint) Dietary surveillance and counselingHyperten sarah, UnspecifiedDiabete s Mellitus, Adult Onset, UncontrolledLumbag o 3 Jordy Hidalgo. [address], [place], [place], [address] , [place]. [phone] Referring Provider: Wil[address], [place], [place], [address]. tel:[phone] OFFICE/OUTPA TIENT VISIT, [facility], [address], [place], [place], [address], [place] tel:[phone] [facility] DM/HTN (chief complaint)a nxiety (chief complaint)a nemia (chief complaint) Dietary surveillance and counselingDiabetes Mellitus Type 2, UncomplicatedAnemi aLumbagoHypertensi on, Unspecified 2 Jordy Hidalgo. [address], [place], [place], [address] , [place]. tel:[phone] Referring Provider: Wilfred [address], [place], [place], [address]. tel:[phone] OFFICE/OUTPA TIENT VISIT, [facility], [address], [place], [place], [address], tel:[phone] [facility] back pain (chief complaint)a nxiety (chief complaint)D M (chief complaint) Dietary surveillance and counselingLumbagoD iabetes Mellitus Type 2, UncomplicatedHyper tension, Unspecified 2 Jordy Hidalgo. [address] [facility], [place], [place], [address] , . tel:[phone] Referring Provider: [facility] Lopez [facility] [place], [place], [address]. tel:[phone] OFFICE/OUTPA TIENT VISIT, [facility], [address], [place], [place], [address], tel:[phone] [facility] anxiety (chief complaint)b ack pain (chief complaint)H TN (chief complaint)a nemia (chief complaint) Dietary surveillance and counselingLumbagoA nemiaHypertension, Unspecified 2 Jordy Hidalgo. [address], [place], [place], [address] , [place]. tel:[phone] Referring Provider: Wilfred Lopez [facility], [place], [place], [address]. tel:[phone] Family History Family Member Type Diagnosis Age At Onset Father Problem (finding) unknown Mother Problem (finding) Alive and well Brother Problem (finding) Alive and well Payers Payer name Insurance type Covered republican ID Authoriza tion(s) No Information Social History Type Description Quantity Date Captured Comments Alcohol Use Details No Caffeine Use Details Unknown Tobacco Use Status Never smoked tobacco 2016 Smoking Status Never smoker Sex Female Vital Signs Date / Time: Height Weight BMI Pulse Rate Blood Pressure Temperature Respiratory Rate Body Surface Area Head Circumference BMI percentile Pulse Ox Inhaled Ox 5:45 PM 162.56 cm 320.00 lbs 54.9 3 kg/m eter (2) 86 /min 146/84 mm[Hg] 98.2 F 18 /min Chief Complaint And Reason For Visit From encounter dated '10/14/2016 16:30'. DM (chief complaint). Description: Pt has DM. Pt stats that her BG is around 250s. Pt is on lantus and novolog before meals. Pt could not toleate metformin. Pt denies any polyuria, polydipsia or any hypoglycemia. Pt denies any vision change or any paresthesia sleep apnea1 (chief complaint). Description: Pt as sleep apnea. pt uses cpap. Pt states that she needs to retitrate the cPAP. Pt wakes up frequently at night and is having breathing problem and snoring issue again. Pt feels fatigue in the morning and throughout the day proteinuria1 (chief complaint). Description: Pt has proteinuria, which has been worse since last year. Pt denies any UTI symptoms or any edema low iron (chief complaint). Description: Pt has borderline low iron but she is not anemic yet. Pt states that she has rather heavy period monthly. pt denies any dizziness. Pt denies any GI bleeding anxiety1 (chief complaint). Description: Pt has chronic anxiety. Pt denies any depression or any suicidal thought. Pt denies any crying spells Plan Of Treatment Date Type Action Status Goal Td vaccine. Due on 17 due Goal Tdap. Due on due Goal Pap/HPV testing. Due on due Goal Depression screening. Due on due Goal Td vaccine. Due on 17 due Goal Tdap. Due on due Goal Pap/HPV testing. Due on due Goal Depression screening. Due on due Goal Td vaccine. Due on 17 due Goal Tdap. Due on due Goal Pap/HPV testing. Due on due Goal Depression screening. Due on due Goal Td vaccine. Due on 17 due Goal Tdap. Due on due Goal Pap/HPV testing. Due on due Goal Depression screening. Due on due Goal Td vaccine. Due on due Goal Tdap. Due on due Goal Pap/HPV testing. Due on due Goal Depression screening. Due on due Goal Td vaccine. Due on 16 due Goal Tdap. Due on due Goal Pap/HPV testing. Due on due Goal Depression screening. Due on due Goal Td vaccine. Due on 16 due Goal Tdap. Due on due Goal Pap/HPV testing. Due on due Goal Depression screening. Due on due Goal Td vaccine. Due on 16 due Goal Tdap. Due on due Goal Pap/HPV testing. Due on due Goal Depression screening. Due on due Goal Td vaccine. Due on 16 due Goal Tdap. Due on due Goal Pap/HPV testing. Due on due Goal Depression screening. Due on due Goal Td vaccine. Due on 16 due Goal Tdap. Due on due Goal Pap/HPV testing. Due on due Goal Depression screening. Due on due Goal Td vaccine. Due on 16 due Goal Tdap. Due on due Goal Pap/HPV testing. Due on due Goal Depression screening. Due on due Goal Td vaccine. Due on 16 due Goal Tdap. Due on due Goal Pap/HPV testing. Due on due Goal Depression screening. Due on due Goal Td vaccine. Due on 16 due Goal Tdap. Due on due Goal Pap/HPV testing. Due on due Goal Depression screening. Due on due Goal Td vaccine. Due on 16 due Goal Tdap. Due on due Goal Pap/HPV testing. Due on due Goal Depression screening. Due on due Goal Mammogram. Due on due Goal Td vaccine. Due on due Goal Tdap. Due on due Goal Pap/HPV testing. Due on due Goal Depression screening. Due on due Goal Mammogram. Due on due Goal Td vaccine. Due on 15 due Goal Tdap. Due on due Goal Pap/HPV testing. Due on due Goal Depression screening. Due on due Goal Mammogram. Due on 5 due Goal Td vaccine. Due on 15 due Goal Tdap. Due on due Goal Pap/HPV testing. Due on due Goal Depression screening. Due on due Goal Mammogram. Due on due Goal Td vaccine. Due on due Goal Tdap. Due on due Goal Pap/HPV testing. Due on due Goal Depression screening. Due on due Goal Mammogram. Due on due Goal Td vaccine. Due on due Goal Tdap. Due on due Goal Pap/HPV testing. Due on due Goal Depression screening. Due on due Goal Mammogram. Due on due Goal Td vaccine. Due on due Goal Tdap. Due on due Goal Pap/HPV testing. Due on due Goal Depression screening. Due on due Goal Mammogram. Due on due Goal Td vaccine. Due on due Goal Tdap. Due on due Goal Pap/HPV testing. Due on due Goal Depression screening. Due on due Goal Mammogram. Due on due Goal Td vaccine. Due on due Goal Tdap. Due on due Goal Pap/HPV testing. Due on due Goal Depression screening. 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 Evaluate and treat ordered Referral Ordered: Referrals: Endocrinology, Diabetes and Metabolism. Evaluate and treat ordered Referral Ordered: Referrals: Surgery. Evaluate and treat ordered Referral Ordered: COLONOSCOPY AND BIOPSY ordered Referral Ordered: MAMMOGRAM, SCREENING ordered Referral Ordered: Tosha Kilpatrick (related to Type 2 diabetes mellitus w/o complication) ordered Referral Referred To: Tosha Kilpatrick [address] [facility] [address] [place], [id number] Ordered: Referrals: Tosha Kilpatrick. Evaluate and treat ordered Referral Ordered: Endocrinology, Diabetes and Metabolism (related to Diabetes Mellitus, Adult Onset, Uncontrolled) ordered Referral Ordered: Referrals: Endocrinology, Diabetes and Metabolism ordered Referral Ordered: US EXAM, ABDOM, COMPLETE ordered Referral Ordered: HEARING TEST, PURE TONE, AIR Bilateral ordered Referral Ordered: Referral: Pulmonary Diseases. ordered History Of Present Illness Encounter Date Complaint History Of Prese nt Illness low iron Pt has borderlin e low iron but she is not anemic yet. Pt states that she has rather heavy period monthly. pt denies any dizziness. Pt denies any GI bleeding anxiety1 Pt has chronic a nxiety. Pt denies any depression or any suicidal thought. Pt denies any crying spells DM Pt has DM. Pt st ats that her BG is around 250s. Pt is on lantus and novolog before meals. Pt could not toleate metformin. Pt denies any polyuria, polydipsia or any hypoglycemia. Pt denies any vision change or any paresthesia proteinuria1 Pt has proteinur ia, which has been worse since last year. Pt denies any UTI symptoms or any edema sleep apnea1 Pt as sleep apne a. pt uses cpap. Pt states that she needs to retitrate the cPAP. Pt wakes up frequently at night and is having breathing problem and snoring issue again. Pt feels fatigue in the morning and throughout the day DM1 Pt has DM. Pt ta kes lantus 50 units and novolog 20 units Pt states that her BG is around 280s Pt denies any hypoglycemia Pt denies any polyuria polydipsia. Pt is noncompliant with diet and exercise and weight loss recommendation. She does NOT want bariatric surgery stating that she has been trying to diet and exercise but clearly without any result. HTN Pt has poorly co ntrolled HTn Pt takes diovan.hcz norvasc and clonidine Pt states that she not been able to take diovan.hctz due to prescription insurance glitch. her BP is high PT denies any chest pain or headache aneity1 Pt has chronic a nxiety. Pt deneis any depression or any suicidal thought. Pt denies any crying spells. Pt takes xanax PRN. obeisty1 Pt is morbidly o bese. Pt refuses to consider bariatric surgery. Pt told me she has been diet and exercising. Pt has not lost any weight. Pt also feels fatigue. Pt want b12 and folate checked. Pt still has NOT done lab work HTN Pt has persisten tly high BP despite taking nrovasc, losartan.hctz and clonidine. Her BP at home is also range between 150-180. 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 Pt still feels fatigue throughout the day anxiety1 Pt has chronic a nxiety .Pt denies any depression or any suicidal thought. Pt denies any crying spells DM Pt has poorly co ntrolled DM. Pt takes lantus and novolog. Her BP is around 150-200 per patient. Pt still has not done lab yet to check A1c. Pt denies any foot numbness. DM Pt takes 40 unit s of lantus at night and humalog before meals. Pt states that her BG is around 250s still at home. Pt denies any polyruia, polydipsia. Pt denies any hypoglycemia. Pt unable to tolerate metformin. Pt denies any foot numbness HTN Pt takes clonidi ne, norvasc and losartan.hctz. Her BP is still high. Pt denies any chest pain or headache. anxiety1 Pt has chronic a niety and depression. pt takes xanax PRN. Pt denies any suicidal or homicdial thought Pt denies any crying spells anemia1 Pt is noncomplia nt with EGD and colonoscopy. Pt denies any GI blood loss. Pt has not done lab yet. Pt denies any syncope or dizziness HTN Pt has HTN. Pt t akes losartan norvasc and clonidine and her BP remains elevated Pt told her BP is around 150/80 at home. Pt denies any chest pain or headache anxiety1 Pt has chronic a nxiety. pt denies any depressin or any suicidal thouight. Pt denies any crying spells DM Pt takes lantus 35 units and also humalog Her BG is around 250s. P denies any polyuria, polydispia. pt is not very good with diet. Pt also has not doen lab yet PHysical Pt needs annual physical. Pt has chronic anxiety. Pt denies any depression or any suicidal thought. Pt takes xanax PRN. Pt denies any cyring spells. Pt has HTN. Pt takes norvasc, losartan and clonidine and her BP is high today. Pt states that her BP is usually around 130/80 at home and work. Pt denies any chest pain or headache. Pt also has DM. Pt takes lantus and humalog. Pt statese that her BG is actually high recently over 200. Pt has not done lab yet. Pt also has not done endoscopy yet. anxiety1 Pt has chronic a nxiety. Pt denies any depression or any suicidal thought. Pt denies any crying spells. iron deficiecy Pt has mild low iron but not anemic. Pt has not done EGD and colonoscopy yet. PT also has intemrittent bright red blood per rectum. Pt denies any abd pain DM Pt has DM. Pt ta kes lantus and humalog. Pt states that her BG is around 120s now. Pt denies any hypoglycemia Pt denies any polyuria, polydipsia HTN Pt takes norvasc , losartan.HCTZ and and also clonidine. Pt has not taken the 2nd dose of clonidine yet. Her BP is high. Pt denies any headache, chest pain HTN Pt takes losaran , hctz and norvSC AND CLOINDINE AND her BP is better today Pt denies any chest pain or headache DM Pt takes lantus 30 units in AM and also 20 units of humalog daily. Her BG is arond 150 per patient. Pt is not compliant with diabetic diet. Pt eats a lot of fast food anixety1 Pt has chronic a nxiety. Pt denies any depression or any suicidal thought. Pt takes xanax PRN for anxiety and doing ok. Pt denies any suicidal or homicdial thought DM Pt supposes to t lavon lantus 30 units in AM and 20 units humalog before meals. Pt again is noncompliant and she only takes lantus 20 units in the morning. Her BG is around 250 in the morning. Pt is very noncompliant about insulin. Pt denies any polyuria, polydipsia anxiety1 Pt has chronic a nxiety. Pt denies any depression or any suiciadl thoguht. pt takes xnaax. pt indio any crying spells. HTN Pt takse losarta n.HCTZ and norvasc. howver, she is not taking clonidine. Pt told me she had difficulty picking it up from pharmacy?? Not sure what she meant by that. Her BP is mildly high today. Pt denies any chest pain or headache HTN Pt has poorly co ntrolled HTN. Pt is taking norvasca dn losartan/HCZ and her BP is still high. Pt denies any chest pain or headache DM Pt again is nonc ompliant. Told her to takes 30 units lantus and 20 units humalog before meals but she again is only taking 20 units of lantus. Pt states that her BG is arond 200. Pt is very noncompliant anxiety1 Pt states that s he is having panic attacks. Pt has been out of xanax for two days .Pt denie sany depresson or any sucidal thought. Pt has been having hyperventilating and panic feelings since running out of xanax. Pt denies any seizures DM Pt has poorly co ntrolled DM. Pt is very noncompliant with diet and exercise. Pt also has been noncompliant with insulin. pt denies any polyuria, polydipsia. Pt denies any vision loss iron deficiency Pt has low iron. Pt state sthat she has heavy period monthly. pt is not anemic Pt denies any GI blood loss. Pt denies any dizziness HTN Pt started metop rolol 25 mg bID by cardiology but she stopped norvac and losartan./HCZT on her own for unknown reason. Pt is very noncompliant. Pt denies any headache or chest pain proteinuria Pt has proteinia in her urine. Pt denies any UTI symptoms DM Pt takes lantus 15 units in AM and humalog before meals. Her BG is around 200s now. Pt still has not done lab yet. Pt denies any hypoglycemia anxiety1 Pt has chronic a nxiety. PT denies any depression or any sucidal thought. Pt denies any crying spells HTN Pt takes norvasc and losartan.HCTZ for HTN. Her BP is high .Pt is seeing cardiology. Pt states that he she has tachycardia and she supposes to start on metoprolol. Pt has not start metoprolol yet However, she stopped taking norvasc and losarta/hctz already?? Pt denies any chest pain or headache. Pt c/o palpitation frequently. Pt has holter monitor which showed tachycardia. Pt denies any acute symptoms now HTN1 Pt takes losarta n.hcTZ and norvasc and her BP is high today Pt denies any chest pain or headache Pt is on low salt diet dM Pt takes lantus 10 unis in the morning Her bG is around 300 in the morning and around 120 during the day. Pt denies any hypoglycemia. anxiety1 Pt has chronic a nxiety Pt denie any depression or any suicidal thought. Pt denies any crying spells DM Pt has DM. Pt is taking lantus 5 units at night and humalog 17 units before meals Pt is on 4 mg amaryl .Her BG is around 150s. Pt is working up towards lantus 10. PT denies any hypoglycemia Pt denies any polyuria polydipsia HTN Pt takes lorsart an/HTZ and norvasc andher BP is normal at home and cardiology office but slighlty high today. Pt denies any chest pain PT is seeing cardiology and had negative echo and holter per patient by cardiology recenlty. Pt deniesa nychest pain anxiety1 Pt has chronic a nxiety. Pt denies any depression or any suicidal thought Pt takes xanax. pt denies any crying spells or any feeling of hopelessness. HTN1 Pt has HTN. Pt t lavon losartan. HCTZ. Pt for some reason did not get the norvasc. Pt is having issue with [facility]. Her BP is high today. pt denies any chest pain or headache DM1 Pt has issue get ting testing strip. Pt has not been able to check BG. Pt is only taking amamryl now. Pt is not taking lantus and humalog. Pt denies any polyuria, polydipsia Anxiety1 Pt has chronic a nxiety. Pt denies any depression or any suicidasl thought. Pt denies any crying spells. Pt denies any feeling of hopelessness. Sick1 Pt c/o running n ose, dry cough, sneezing, sinus prssure for 5 days. pt denies any fever, Pt denies any recent travel. Pt denies any sick contact HTN1 Pt has HTN. Pt t akes losaran/HCTZ and her BP is still high. Pt denies any chset pain or headache DM1 Pt has DM. Pt is on amaryl and humalog 17 units before meal. Her BG is over 200. Her A1c is close to 9. Pt is very noncompliant. Pt denies any hypoglycemia anxiety1 Pt has chronic a nxiety. Pt denies any depression or any suicidasl thought. Pt takes xanax daily. Pt has frequent panic attacks noncompliant Pt is very nonco mpliant Pt states that she has phobia about any meds. Pt staes that she is afraid that she is going to with lantus or other meds? chest pain1 Pt states that s he has chornic chest pain for 20 years, not exertional related. Pt staes that chest pain is worse with anxiety. She has been having chest pain for 20 years. Pt is seeing cardiology. Pt is getting holter and echo and stress test soon. Pt denies any acute chset pain. Pt denies any change in quality of pain DM1 Pt has DM. Pt is on amaryl 4 mg daily. Pt did not try lantus. Pt is very noncompliant. Pt also did not go to endo appointment. Pt states that she is on humalog 17 units TID before meal. Pt is afriad of lantus. Pt states that her BG is 200s Anxiety1 Pt has chronic a nxiety. Pt denies any depression or any suicidal thought Pt takes xanax PRN Pt denies any crying spells. Pt denies any feeling of hopelessness. HTN1 Pt takes losarta n.HCTZ. Her BP is borderline today. Pt denies any chest pain or headache sleep apnea1 Pt has sleep bus attendant ea. Pt has been using CPAP nightly for at leat 6 hours. Pt feels better but still feels tired DM Pt takes amaryl 4 mg and also humalog 15 units TID. Pt staes that her BG is around 250-280. Pt unable to tolerate metformin. PT denies any hypoglycemia. Pt denies any polyuria, polyuria. anxiety The patient does not present with anxious/fearful thoughts or fatigue. The patient denies any vomiting. Additional information: Pt has chornic anxidty. Pt denie any depression or any suicidal thought. HTN Pt is out of lis inopril. Pt is very noncompliant with taking her BP med. Pt let the refill runout. She still has medication waiting for her at pharmacy but she has not picked up yet. Her BP is high today. Pt denies any chest pain or headache HTN Pt has HTN. Pt t akes lisinoril but her BP is still mildly high. Pt denies any chest pain or hedache DM Pt takes amaryl and humalog/ Pt states that her BG is around 200. Pt states that 15 units humalog is doing better. Pt denies any numbness. Pt denies any hypoglycemia or any polyura, polydipsia sleep apnea Relevant history : a BMI of 52.70. The patient denies depression, headache, insomnia or wheezing. Additional information: Pt uses CPAP nightly throughout the night. Pt feels more energy and also sleeps much better and she does not snore anymore. Pt is happy with it. fatty liver Pt has fatty frankie er. Pt denies any abd pain DM Pt takes amrayl but she does not takes metformin. Pt is noncompliant. Pt states that humalog 10 units does not help and her postpradial BG is around 250-300. HTN Pt takes lisinor pil and her BP is borderline Anxiety Additional infor mation: Pt has chornic anxiety. Pt denies any depression or any suicidal thought. DM Pt again is nonc ompliant. pt is not taking metformin. Pt takes humalog and amaryl. Pt states that metformin makes her stomach upset. sleep apnea Relevant history : a BMI of 51.67. Additional information: Pt has sleep apnea. Pt started CPAP two days ago. Pt has not noticed any difference in terms of energy. Anxeity Pt has chronic a nxiety. Pt deneis any depression or any suicidal thought DM Pt takes metform in humalog and amaryl. Pt has not used humalog and amary 4 mg recently due to running out of strip? Pt states that she always has issue with [facility] getting her strip. Instructions Date Instruction Additional Infor mation Prescribed Activity and Exercise Education Related to Dietary Surveillance and Counseling Prescribed Diet Educ ation/Lifestyle Education Regarding Diet Related to Dietary Surveillance and Counseling Prescribed Activity and Exercise Education Related to Dietary Surveillance and Counseling Prescribed Diet Educ ation/Lifestyle Education Regarding Diet Related to Dietary Surveillance and Counseling Check blood sugar twice a day. 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 Prescribed Activity and Exercise Education Related to Dietary Surveillance and Counseling Prescribed Diet Educ ation/Lifestyle Education Regarding Diet Related to Dietary Surveillance and Counseling Prescribed Activity and Exercise Education Related to Dietary Surveillance and Counseling Prescribed Diet Educ ation/Lifestyle Education Regarding Diet Related to Dietary Surveillance and Counseling Prescribed Activity and Exercise Education Related to Dietary Surveillance and Counseling Prescribed Diet Educ ation/Lifestyle Education Regarding Diet Related to Dietary Surveillance and Counseling Prescribed Activity and Exercise Education Related to Dietary Surveillance and Counseling Prescribed Diet Educ ation/Lifestyle Education Regarding Diet Related to Dietary Surveillance and Counseling Prescribed Activity and Exercise Education Related to Dietary Surveillance and Counseling Prescribed Diet Educ ation/Lifestyle Education Regarding Diet Related to Dietary Surveillance and Counseling Prescribed Activity and Exercise Education Related to Dietary Surveillance and Counseling Prescribed Diet Educ ation/Lifestyle Education Regarding Diet Related to Dietary Surveillance and Counseling Prescribed Activity and Exercise Education Related to Dietary Surveillance and Counseling Prescribed Diet Educ ation/Lifestyle Education Regarding Diet Related to Dietary Surveillance and Counseling Prescribed Activity and Exercise Education Related to Dietary Surveillance and Counseling Prescribed Diet Educ ation/Lifestyle Education Regarding Diet Related to Dietary Surveillance and Counseling Prescribed Activity and Exercise Education Related to Dietary Surveillance and Counseling Prescribed Diet Educ ation/Lifestyle Education Regarding Diet Related to Dietary Surveillance and Counseling Prescribed Diet Educ ation/Lifestyle Education Regarding Diet Related to Dietary Surveillance and Counseling Prescribed Activity and Exercise Education Related to Dietary Surveillance and Counseling Prescribed Activity and Exercise Education Related to Dietary Surveillance and Counseling Prescribed Diet Educ ation/Lifestyle Education Regarding Diet Related to Dietary Surveillance and Counseling Prescribed Activity and Exercise Education Related to Dietary Surveillance and Counseling Prescribed Diet Educ ation/Lifestyle Education Regarding Diet Related to Dietary Surveillance and Counseling Prescribed Activity and Exercise Education Related to Dietary Surveillance and Counseling Prescribed Diet Educ ation/Lifestyle Education Regarding Diet Related to Dietary Surveillance and Counseling Prescribed Activity and Exercise Education Related to Dietary Surveillance and Counseling Prescribed Diet Educ ation/Lifestyle Education Regarding Diet Related to Dietary Surveillance and Counseling Prescribed Activity and Exercise Education Related to Dietary Surveillance and Counseling Prescribed Diet Educ ation/Lifestyle Education Regarding Diet Related to Dietary Surveillance and Counseling Prescribed Activity and Exercise Education Related to Dietary Surveillance and Counseling Prescribed Diet Educ ation/Lifestyle Education Regarding Diet Related to Dietary Surveillance and Counseling Prescribed Activity and Exercise Education Related to Dietary Surveillance and Counseling Prescribed Diet Educ ation/Lifestyle Education Regarding Diet Related to Dietary Surveillance and Counseling Prescribed Activity and Exercise Education Related to Dietary Surveillance and Counseling Prescribed Diet Educ ation/Lifestyle Education Regarding Diet Related to Dietary Surveillance and Counseling Prescribed activity/ exercise education Related to Dietary surveillance and counseling Special diet education Related t o Dietary surveillance and counseling Physical activity counseling Rel ated to Dietary surveillance counseling Decrease caloric intake Related to Dietary surveillance counseling Physical activity counseling Rel ated to Dietary surveillance counseling Decrease caloric intake Related to Dietary surveillance counseling Physical activity counseling Rel ated to Dietary surveillance counseling Decrease caloric intake Related to Dietary surveillance counseling Physical activity counseling Rel ated to Dietary surveillance counseling Decrease caloric intake Related to Dietary surveillance counseling Physical activity counseling Rel ated to Dietary surveillance counseling Decrease caloric intake Related to Dietary surveillance counseling Decrease caloric intake Related to Dietary surveillance counseling Physical activity counseling Rel ated to Dietary surveillance counseling Dietary counseling Related to Di etary surveillance counseling Decrease caloric intake Related to Dietary surveillance counseling Dietary counseling Related to Di etary surveillance counseling Decrease caloric intake Related to Dietary surveillance counseling Dietary counseling Related to Di etary surveillance counseling Decrease caloric intake Related to Dietary surveillance counseling Dietary counseling Related to Di etary surveillance counseling Decrease caloric intake Related to Dietary surveillance counseling Dietary counseling Related to Di etary surveillance counseling Decrease caloric intake Related to Dietary surveillance counseling Dietary counseling Related to Di etary surveillance counseling Decrease caloric intake Related to Dietary surveillance counseling Dietary counseling Related to Di etary surveillance counseling Decrease caloric intake Related to Dietary surveillance counseling Dietary counseling Related to Di etary surveillance counseling Decrease caloric intake Related to Dietary surveillance counseling Dietary counseling Related to Di etary surveillance counseling Decrease caloric intake Related to Dietary surveillance counseling Dietary counseling Related to Di etary surveillance counseling Decrease caloric intake Related to Dietary surveillance counseling Dietary counseling Related to Di etary surveillance counseling Decrease caloric intake Related to Dietary surveillance counseling Dietary counseling Related to Di etary surveillance counseling Decrease caloric intake Related to Dietary surveillance counseling Dietary counseling Related to Di etary surveillance counseling Decrease caloric intake Related to Dietary surveillance counseling Dietary counseling Related to Di etary surveillance counseling Decrease caloric intake Related to Dietary surveillance counseling Dietary counseling Related to Di etary surveillance counseling Decrease caloric intake Related to Dietary surveillance counseling Dietary counseling Related to Di etary surveillance counseling Decrease caloric intake Related to Dietary surveillance counseling Activity counseling provided Rel ated to Hypertension, Unspecified Dietary counseling provided Rela mason to Hypertension, Unspecified Dietary counseling Related to Di etary surveillance counseling Decrease caloric intake Related to Dietary surveillance counseling Dietary counseling Related to Di etary surveillance counseling Decrease caloric intake Related to Dietary surveillance counseling Dietary counseling Related to Di etary surveillance counseling Decrease caloric intake Related to Dietary surveillance counseling Dietary counseling Related to Di etary surveillance counseling Decrease caloric intake Related to Dietary surveillance counseling Dietary counseling Related to Di etary surveillance counseling Decrease caloric intake Related to Dietary surveillance counseling Dietary counseling Related to Di etary surveillance counseling Decrease caloric intake Related to Dietary surveillance counseling Dietary counseling Related to Di etary surveillance counseling Decrease caloric intake Related to Dietary surveillance counseling Dietary counseling Related to Di etary surveillance counseling Decrease caloric intake Related to Dietary surveillance counseling Assessments Type Assessment Date assessment Type 2 diabetes mellitus with di abetic nephropathy assessment Essential (primary) hypertension assessment Sleep apnea assessment Body mass index (BMI) 50-59.9 , adult Mental Status Date Cognitive Assessment Orientation - [place] ed to time, place, person, situation.
--- OUTSIDE RECORDS SUMMARY | 2016-10-14 11:30 | XMS_ITS | Continuity of Care Document ---
Author Organization [facility] Address [address] [place] [address] [place] [address] Phone Care Team Providers Care Linux Developer Name Role Phone Rocky Spence MD Unavailable [...] Copied on Encounter OFFICE/OUTPA TIENT VISIT, EST [facility], [address] [place], [address], tel:[phone] [facility] Medicine DM (chief complaint)s leep apnea1 (chief complaint)p roteinuria1 (chief complaint)l ow iron (chief complaint)a nxiety1 (chief complaint) Type 2 diabetes mellitus with diabetic nephropathyEssenti al (primary) hypertensionSleep apneaBody mass index (BMI) 50-59.9 , adult 7 Jordy Hidalgo. [address], [place], [place], [address] , [place]. tel:[phone] Referring Provider: Rocky Spence [address], [place], [place], [address]. tel:[phone] [facility], [address] [place], [address], [place] tel:[phone] [facility] No Information 7 Jordy Hidalgo. [address], [place], [place], [address] , [place]. tel:[phone] OFFICE/OUTPA TIENT VISIT, EST [facility], [address] [place], [address], [place] tel:[phone] [facility] DM1 (chief complaint)H TN (chief complaint)a neity1 (chief complaint)o beisty1 (chief complaint) Type 2 diabetes mellitus without complicationsEssen tial (primary) hypertensionBody mass index (BMI) 50-59.9 , adultAnxiolytic dependence Fercho- 7 Jordy Soto [address], [place], [place], [address] , [place]. tel:[phone] [facility], [address], [place], [place], [address], [place] tel:[phone] [facility] No Information 7 Jordy Soto [address], [place], [place], [address] , [place]. tel:[phone] OFFICE/OUTPA TIENT VISIT, [facility], [address], [place], [place], [address], [place] tel:[phone] [facility] HTN (chief complaint)s leep apnea1 (chief complaint)a nxiety1 (chief complaint)D M (chief complaint) Sleep apneaEssential (primary) hypertensionType 2 diabetes mellitus without complicationsAnxio lytic dependence 7 Jordy Soto [address], [place], [place], [address] , [place]. tel:[phone] [facility], [address], [place], [place], [address], [place] tel:[phone] [facility] No Information 7 Jordy Soto [address], [place], [place], [address] , [place]. tel:[phone] OFFICE/OUTPA TIENT VISIT, [facility], [address], [place], [place], [address], [place] tel:[phone] [facility] DM (chief complaint)H TN (chief complaint)a nxiety1 (chief complaint)a nemia1 (chief complaint) Type 2 diabetes mellitus without complicationsAnxio lytic dependenceEssentia l (primary) hypertensionBody mass index (BMI) 50-59.9 , adult Fe- 7 Jordy Soto [address], [place], [place], [address] , [place]. tel:[phone] Referring Provider: Wilfred Lopez [address], [place], [place], [address]. tel:[phone] OFFICE/OUTPA TIENT VISIT, EST [facility], [address], [place], [place], [address], [place] tel:[phone] [facility] Medicine HTN (chief complaint)a nxiety1 (chief complaint)D M (chief complaint) Essential (primary) hypertensionType 2 diabetes mellitus without complicationsAnxio lytic dependenceBody mass index (BMI) 50-59.9 , adult Feb- 6 Jordy Hidalgo. [address], [place], [place], [address] , [place]. [phone] Referring Provider: Wilfred Lopez [address], [place], [place], [address]. tel:[phone] PREV VISIT, EST, AGE 40-64 [facility], [address], [place], [place], [address], [place] tel:[phone] [facility] PHysical (chief complaint) Encntr for general adult medical exam w/o abnormal findings 6 Jordy Hidalgo. [address], [place], [place], [address] , [place]. [phone] Referring Provider: Wilfred Lopez [address], [place], [place], [address]. tel:[phone] OFFICE/OUTPA TIENT VISIT, EST [facility], [address], [place], [place], [address], [place] tel:[phone] [facility] DM (chief complaint)H TN (chief complaint)a nxiety1 (chief complaint)i silvino deficiecy (chief complaint) Iron deficiencyEssentia l (primary) hypertensionAnxiol ytic dependenceType 2 diabetes mellitus without complications 0 6 Jordy Hidalgo. [address], [place], [place], [address] , [place]. [phone] [facility], [address], [place], [place], [address], [place] tel:[phone] [facility] No Information 6 Jordy Hiadlgo. [address], [place], [place], [address] , [place]. tel:[phone] OFFICE/OUTPA TIENT VISIT, [facility], [address], [place], [place], [address], [place] tel:[phone] [facility] HTN (chief complaint)D M (chief complaint)a nixety1 (chief complaint) Type 2 diabetes mellitus without complicationsEssen tial (primary) hypertensionAnxiol ytic dependence 6 Jordy Hidalgo. [address], [place], [place], [address] , [place]. [phone] Referring Provider: Wilfred Lopez [address], [place], [place], [address]. tel:[phone] OFFICE/OUTPA TIENT VISIT, [facility], [address], [place], [place], [address], [place] tel:[phone] [facility] DM (chief complaint)a nxiety1 (chief complaint)H TN (chief complaint) Type 2 diabetes mellitus without complicationsAnxio lytic dependenceEssentia l (primary) hypertension 6 Jordy Hidalgo. [address], [place], [place], [address] , [place]. [phone] Referring Provider: Wilfred Lopez [address], [place], [place], [address]. tel:[phone] OFFICE/OUTPA TIENT VISIT, [facility], [address], [place], [place], [address], [place] tel:[phone] [facility] HTN (chief complaint)D M (chief complaint)a nxiety1 (chief complaint) Essential (primary) hypertensionType 2 diabetes mellitus without complicationsAnxio lytic dependence 6 Jordy Hidalgo. [address], [place], [place], [address] , [place]. tel:[phone] Referring Provider: Wilfred [address], [place], [place], [address]. tel:[phone] OFFICE/OUTPA TIENT VISIT, [facility], [address], [place], [place], [address], [place] tel:[phone] [facility] DM (chief complaint)i silvino deficiency (chief complaint)p roteinuria (chief complaint)H TN (chief complaint) Type 2 diabetes mellitus without complicationsProte inuriaIron deficiencyEssentia l (primary) hypertension 6 Jordy Hidalgo. [address], [place], [place], [address] , [place]. [phone] Referring Provider: Wilfred Lopez [address], [place], [place], [address]. tel:[phone] OFFICE/OUTPA TIENT VISIT, [facility], [address], [place], [place], [address], [place] tel:[phone] [facility] DM (chief complaint)a nxiety1 (chief complaint)H TN (chief complaint) Type 2 diabetes mellitus without complicationsAnxio lytic dependenceEssentia l (primary) hypertensionTachyc ardia 6 Jordy Hidalgo. [address], [place], [place], [address] , [place]. [phone] Referring Provider: Wilfred Lopez [address], [place], [place], [address]. tel:[phone] OFFICE/OUTPA TIENT VISIT, [facility], [address], [place], [place], [address], [place] tel:[phone] [facility] HTN1 (chief complaint)d M (chief complaint)a nxiety1 (chief complaint) Type 2 diabetes mellitus without complicationsEssen tial (primary) hypertensionAnxiol ytic dependence 6 Jordy Hidalgo. [address], [place], [place], [address] , [place]. tel:[phone] Referring Provider: Wilfred Lopez [address], [place], [place], [address]. tel:[phone] OFFICE/OUTPA TIENT VISIT, [facility], [address], [place], [place], [address], [place] tel:[phone] [facility] HTN (chief complaint)D M (chief complaint)a nxiety1 (chief complaint) Type 2 diabetes mellitus without complicationsAnxio lytic dependenceEssentia l (primary) hypertensionEncoun ter for oth screening for malignant neoplasm of breast 6 Jordy Hidalgo. [address], [place], [place], [address] , [place]. [phone] Referring Provider: Wilfred Lopez [facility] A, [place], [place], [address]. tel:[phone] OFFICE/OUTPA TIENT VISIT, [facility], [address], [place], [place], [address], [place] tel:[phone] [facility] HTN1 (chief complaint)D M1 (chief complaint)A nxiety1 (chief complaint)S ick1 (chief complaint) Type 2 diabetes mellitus without complicationsEssen tial (primary) hypertensionAcute upper respiratory infection, unspecifiedAnxioly tic dependence 5 Jordy Hidalgo. [address], [place], [place], [address] , [place]. [phone] Referring Provider: Wilfred Lopez [facility] A, [place], [place], [address]. tel:[phone] OFFICE/OUTPA TIENT VISIT, [facility], [address], [place], [place], [address], [place] tel:[phone] [facility] HTN1 (chief complaint)D M1 (chief complaint)a nxiety1 (chief complaint)n oncompliant (chief complaint)c hest pain1 (chief complaint) Essential (primary) hypertensionType 2 diabetes mellitus without complications 5 Jordy Soto [address], [place], [place], [address] , [place]. tel:[phone] Referring Provider: Wilfred Lopez [address], [place], [place], [address]. tel:[phone] OFFICE/OUTPA TIENT VISIT, [facility], [address], [place], [place], [address], tel:[phone] [facility] DM1 (chief complaint)A nxiety1 (chief complaint)H TN1 (chief complaint)s leep apnea1 (chief complaint) Dietary surveillance and counselingType 2 diabetes mellitus w/o complicationEssent ial (primary) hypertensionOther sleep apnea 5 Jordy Hidalgo. [address], [place], [place], [address] , [place]. tel:[phone] Referring Provider: [address], [place], [place], [address]. tel:[phone] OFFICE/OUTPA TIENT VISIT, [facility], [address] [place], [address], [place] tel:[phone] [facility] DM (chief complaint)H TN (chief complaint)a nxiety (chief complaint) Dietary surveillance and counselingBrittle diabetesUnspecifie d essential hypertensionCurren t use of insulin 5 Jordy Soto [address], [place], [place], [address] , [place]. tel:[phone] Referring Provider: [address], [place], [place], [address]. tel:[phone] OFFICE/OUTPA TIENT VISIT, [facility], [address] [place], [address], [place] tel:[phone] [facility] HTN (chief complaint)D M (chief complaint)s leep apnea (chief complaint) Dietary surveillance and counselingUnspecif ied essential hypertensionUnspec ified sleep apneaBrittle diabetesBMI 50.0 to 59.9 5 Jordy Soto [address], [place], [place], [address] , [place]. tel:[phone] Referring Provider: Rocky Spence, [address], [place], [place], [address]. tel:[phone] OFFICE/OUTPA TIENT VISIT, [facility], [address], [place], [place], [address], [place] tel:[phone] [facility] fatty liver (chief complaint)D M (chief complaint)H TN (chief complaint) Dietary surveillance and counselingUnspecif ied essential hypertensionOther specified disorders of liverBrittle diabetes 5 Jordy Hidalgo. [address], [place], [place], [address] , [place]. tel:[phone] Referring Provider: Rocky Spence, [address], [place], [place], [address]. tel:[phone] [facility], [address], [place], [place], [address], [place] tel:[phone] [facility] No Information 5 Jordy Hidalgo. [address], [place], [place], [address] , [place]. tel:[phone] OFFICE/OUTPA TIENT VISIT, [facility], [address], [place], [place], [address], [place] tel:[phone] [facility] Anxiety (chief complaint)D M (chief complaint) Dietary surveillance and counselingBrittle diabetesBlood pressure elevated 5 Jordy Hidalgo. [address], [place], [place], [address] , [place]. tel:[phone] Referring Provider: Rocky Spence, [address], [place], [place], [address]. tel:[phone] OFFICE/OUTPA TIENT VISIT, [facility], [address], [place], [place], [address], [place] tel:[phone] [facility] sleep apnea (chief complaint)A nxeity (chief complaint)D M (chief complaint) Dietary surveillance and counselingUnspecif ied sleep apneaBrittle diabetesUnspecifie d disorder of liver 5 Jordy Hidalgo. [address], [place], [place], [address] , [place]. tel:[phone] Referring Provider: Wilfred Lopez [address], [place], [place], [address]. tel:[phone] OFFICE/OUTPA TIENT VISIT, [facility], [address], [place], [place], [address], [place] tel:[phone] [facility] DM (chief complaint)s leep apnea (chief complaint)a nxiety (chief complaint) Dietary surveillance and counselingDiabetes Mellitus Type 2, UncomplicatedSleep ApneaUnspecified disorder of liver 5 Jordy Hidalgo. [address], [place], [place], [address] , [place]. [phone] Referring Provider: Wilfred Lopez [address], [place], [place], [address]. tel:[phone] OFFICE/OUTPA TIENT VISIT, [facility], [address], [place], [place], [address], [place] tel:[phone] [facility] DM (chief complaint)H TN (chief complaint)s leep apnea (chief complaint)L FT (chief complaint) Dietary surveillance and counselingDiabetes Mellitus Type 2, UncomplicatedHyper tension, UnspecifiedUnspeci fied disorder of liverSleep Apnea 5 Jordy Hidalgo. [address], [place], [place], [address] , [place]. [phone] Referring Provider: Wilfred Lopez [address], [place], [place], [address]. tel:[phone] OFFICE/OUTPA TIENT VISIT, [facility], [address], [place], [place], [address], [place] tel:[phone] [facility] anxiety (chief complaint)D M (chief complaint) Dietary surveillance and counselingDiabetes Mellitus Type 2, UncomplicatedSleep ApneaSedative, hypnotic or anxiolytic dependence, unspecified Fe 5 Jordy Hidalgo. [address], [place], [place], [address] , [place]. [phone] Referring Provider: Rocky Spence, [address], [place], [place], [address]. tel:[phone] OFFICE/OUTPA TIENT VISIT, [facility], [address], [place], [place], [address], [place] [phone] [facility] DM (chief complaint)a nxiety (chief complaint)H TN (chief complaint)s leep apnea (chief complaint) Dietary surveillance and counselingDiabetes Mellitus, Adult Onset, UncontrolledHypert ension, UnspecifiedSleep Apnea 5 Jordy Hidalgo. [address], [place], [place], [address] , [place]. [phone] Referring Provider: Wilfred Lopez [address], [place], [place], [address]. tel:[phone] OFFICE/OUTPA TIENT VISIT, [facility], [address], [place], [place], [address], [place] tel:[phone] [facility] DM (chief complaint)s leep apnea (chief complaint)a nxiety (chief complaint) Dietary surveillance and counselingDiabetes Mellitus Type 2, UncomplicatedSleep ApneaCentral hearing lossHypertension, Unspecified 4 Jordy Hidalgo. [address], [place], [place], [address] , [place]. tel:[phone] Referring Provider: Wilfred Lopez [address], [place], [place], [address]. tel:[phone] OFFICE/OUTPA TIENT VISIT, [facility], [address], [place], [place], [address], [place] tel:[phone] [facility] DM (chief complaint)l ow iron (chief complaint)a nxiety (chief complaint) AnemiaHypertension , UnspecifiedDiabete s Mellitus, Adult Onset, UncontrolledDietar y surveillance and counseling 4 Jordy Hidalgo. [address], [place], [place], [address] , . tel:[phone] Referring Provider: Rocky Spence, [address], [place], [place], [address]. tel:[phone] OFFICE/OUTPA TIENT VISIT, [facility], [address], [place], [place], [address], [place] tel:[phone] [facility] finger infection (chief complaint)a nxiety (chief complaint)D M (chief complaint) Dietary surveillance and counselingDiabetes Mellitus, Adult Onset, UncontrolledOnychi a and paronychia of fingerSleep ApneaHypertension, Unspecified 4 Jordy Hidalgo. [address], [place], [place], [address] , . tel:[phone] Referring Provider: Wilfred Lopez [address], [place], [place], [address]. tel:[phone] OFFICE/OUTPA TIENT VISIT, [facility], [address] [place], [address], [place] tel:[phone] [facility] headache (chief complaint)a nxiety (chief complaint)s leep apnea (chief complaint)t innitus (chief complaint) Dietary surveillance and counselingHeadache Sleep ApneaCentral hearing loss 4 Jordy Hidalgo. [address], [place], [place], [address] , [place]. tel:[phone] Referring Provider: Wilfred Lopez [address], [place], [place], [address]. tel:[phone] OFFICE/OUTPA TIENT VISIT, [facility], [address], [place], [place], [address], [place] tel:[phone] [facility] DM (chief complaint)a nxiety (chief complaint)h and numbness (chief complaint) Dietary surveillance and counselingDiabetes Mellitus Type 2, UncomplicatedDistu rbance of skin sensationCervicalg ia 4 Jordy Hidalgo. [address], [place], [place], [address] , [place]. tel:[phone] Referring Provider: Wilfred Lopez [address], [place], [place], [address]. tel:[phone] OFFICE/OUTPA TIENT VISIT, [facility], [address], [place], [place], [address], [place] tel:[phone] [facility] DM (chief complaint)H TN (chief complaint)a nxiety (chief complaint)d izziness (chief complaint)s leep apnea (chief complaint) Diabetes Mellitus Type 2, UncomplicatedVerti goHypertension, UnspecifiedSleep Apnea 4 Jordy Hidalgo. [address], [place], [place], [address] , . tel:[phone] Referring Provider: Wilfred Lopez [address], [place], [place], [address]. tel:[phone] OFFICE/OUTPA TIENT VISIT, [facility], [address] [place], [address], [place] tel:[phone] [facility] DM (chief complaint)a nxiety (chief complaint)H TN (chief complaint) Dietary surveillance and counselingDiabetes Mellitus, Adult Onset, UncontrolledHypert ension, Unspecified 4 Jordy Hidalgo. [address], [place], [place], [address] , [place]. tel:[phone] Referring Provider: Wilfred Lopez [address], [place], [place], [address]. tel:[phone] OFFICE/OUTPA TIENT VISIT, [facility], [address], [place], [place], [address], [place] tel:[phone] [facility] Tinnitus (chief complaint)a nxiety (chief complaint)D M (chief complaint) Tinnitus, unspecifiedVertigo Diabetes Mellitus Type 2, UncomplicatedDieta ry surveillance and counseling 4 Jordy Hidalgo. [address], [place], [place], [address] , . tel:[phone] Referring Provider: Wilfred Lopez [address], [place], [place], [address]. tel:[phone] OFFICE/OUTPA TIENT VISIT, [facility], [address], [place], [place], [address], tel:[phone] [facility] DM (chief complaint)H TN (chief complaint)a nxiety (chief complaint) Dietary surveillance and counselingDiabetes Mellitus Type 2, UncomplicatedHyper tension, Unspecified 4 Jordy Hidalgo. [address], [place], [place], [address] , [place]. tel:[phone] Referring Provider: [facility] [place], [place], [address]. tel:[phone] OFFICE/OUTPA TIENT VISIT, [facility], [address], [place], [place], [address], [place] tel:[phone] [facility] shingle (chief complaint)A nxiety (chief complaint)S inus (chief complaint)D M (chief complaint) Dietary surveillance and counselingHerpes zoster without mention of complicationSinusi tis, AcuteTinnitus, unspecifiedDiabete s Mellitus, Adult Onset, Uncontrolled 4 Jordy Hidalgo. [address], [place], [place], [address] , [place]. tel:[phone] Referring Provider: Wilfred Lopez [address], [place], [place], [address]. tel:[phone] OFFICE/OUTPA TIENT VISIT, [facility], [address], [place], [place], [address], [place] tel:[phone] [facility] anxiety (chief complaint)e ar pain (chief complaint)b ack pain (chief complaint) Dietary surveillance and counselingDietary surveillance and counselingTinnitus , unspecifiedLumbago Otalgia, unspecified 4 Jordy Hidalgo. [address], [place], [place], [address] , [place]. tel:[phone] Referring Provider: Wilfred Lopez [address], [place], [place], [address]. tel:[phone] OFFICE/OUTPA TIENT VISIT, [facility], [address], [place], [place], [address], [place] tel:[phone] [facility] HTN (chief complaint)D M (chief complaint)a nxiety (chief complaint) Dietary surveillance and counselingHyperten sarah, UnspecifiedDiabete s Mellitus, Adult Onset, Uncontrolled 4 Jordy Hidalgo. [address], [place], [place], [address] , [place]. [phone] Referring Provider: Wilfred Lopez [address], [place], [place], [address]. tel:[phone] OFFICE/OUTPA TIENT VISIT, [facility], [address], [place], [place], [address], [place] tel:[phone] [facility] DM (chief complaint)a nxiety (chief complaint) Dietary surveillance and counselingHyperten sarah, UnspecifiedDiabete s Mellitus, Adult Onset, Uncontrolled 4 Jordy Hidalgo. [address], [place], [place], [address] , [place]. tel:[phone] Referring Provider: Wilfred Lopez [address], [place], [place], [address]. tel:[phone] OFFICE/OUTPA TIENT VISIT, [facility], [address], [place], [place], [address], [place] tel:[phone] [facility] anxiety (chief complaint)U RI (chief complaint)D M (chief complaint) Dietary surveillance and counselingDiabetes Mellitus, Adult Onset, UncontrolledAcute upper respiratory infections of other multiple sites 3 Jordy Hidalgo. [address], [place], [place], [address] , [place]. tel:[phone] Referring Provider: Rocky Spence [address], [place], [place], [address]. tel:[phone] OFFICE/OUTPA TIENT VISIT, [facility], [address], [place], [place], [address], [place] tel:[phone] [facility] HTN (chief complaint)D M (chief complaint)a nxiety (chief complaint) Dietary surveillance and counselingHyperten sarah, UnspecifiedDiabete s Mellitus, Adult Onset, Uncontrolled 3 Jordy Hidalgo. [address], [place], [place], [address] , [place]. tel:[phone] OFFICE/OUTPA TIENT VISIT, [facility], [address], [place], [place], [address], [place] tel:[phone] [facility] HTN (chief complaint)a nxiety (chief complaint)f atigue (chief complaint) Dietary surveillance and counselingLumbagoH ypertension, UnspecifiedSleep Apnea 3 Jordy Hidalgo. [address], [address], [place], [place], [address] , [place]. tel:[phone] Referring Provider: Wilfred Lopez [address], [place], [place], [address]. tel:[phone] OFFICE/OUTPA TIENT VISIT, [facility], [address], [place], [place], [address], [place] tel:[phone] [facility] HTN (chief complaint)D M (chief complaint)a nxiety (chief complaint) Dietary surveillance and counselingLumbagoH ypertension, UnspecifiedDiabete s Mellitus Type 2, Uncomplicated 3 Jordy Hidalgo. [address], [address], [place], [place], [address] , [place]. tel:[phone] Referring Provider: Wilfred Lopez [address], [place], [place], [address]. tel:[phone] OFFICE/OUTPA TIENT VISIT, [facility], [address], [place], [place], [address], [place] tel:[phone] [facility] anemia (chief complaint)D M (chief complaint)a nxiety (chief complaint) AnemiaHypertension , UnspecifiedDiabete s Mellitus Type 2, UncomplicatedDieta ry surveillance and counseling 3 Jordy Hidalgo. [address], [address], [place], [place], [address] , [place]. [phone] Referring Provider: Rocky Spence, [address], [place], [place], [address]. tel:[phone] OFFICE/OUTPA TIENT VISIT, [facility], [address], [place], [place], [address], [place] tel:[phone] [facility] anemia (chief complaint)D M (chief complaint)H TN (chief complaint) AnemiaDietary surveillance and counselingDiabetes Mellitus, Adult Onset, UncontrolledHypert ension, Unspecified 3 Jordy Hidalgo. [address], [address], [place], [place], [address] , [place]. tel:[phone] Referring Provider: Rocky Spence [address], [place], [place], [address]. tel:[phone] OFFICE/OUTPA TIENT VISIT, [facility], [address], [place], [place], [address], [place] tel:[phone] [facility] anxiety (chief complaint)D M (chief complaint)b ronchitis (chief complaint) Dietary surveillance and counselingDiabetes Mellitus, Adult Onset, UncontrolledHypert ension, UnspecifiedBronchi tis, Acute 3 Jordy Soto [address], [address], [place], [place], [address] , [place]. [phone] Referring Provider: Rocky Spence [address], [place], [place], [address]. tel:[phone] OFFICE/OUTPA TIENT VISIT, [facility], [address], [place], [place], [address], [place] tel:[phone] [facility] HTN (chief complaint)a nxiety (chief complaint)s ick (chief complaint) Acute upper respiratory infections of other multiple sitesHypertension, UnspecifiedDiabete s Mellitus, Adult Onset, Uncontrolled 3 Jordy Hidalgo. [address], [place], [place], [address] , [place]. tel:[phone] Referring Provider: Rocky Spence, [address], [place], [place], [address]. tel:[phone] OFFICE/OUTPA TIENT VISIT, [facility], [address], [place], [place], [address], [place] tel:[phone] [facility] HTN (chief complaint)D M (chief complaint)a nxiety (chief complaint) Dietary surveillance and counselingHyperten sarah, UnspecifiedDiabete s Mellitus, Adult Onset, Uncontrolled Jun- 3 Jordy Hidalgo. [address], [address], [place], [place], [address] , [place]. [phone] Referring Provider: Wilfred Lopez [address], [place], [place], [address]. tel:[phone] OFFICE/OUTPA TIENT VISIT, [facility], [address], [place], [place], [address], [place] tel:[phone] [facility] HTN (chief complaint)V ision chanage (chief complaint)A nemia (chief complaint) Dietary surveillance and counselingAnemiaDi abetes Mellitus, Adult Onset, UncontrolledHypert ension, UnspecifiedCarotid Artery Disease, Unilateral 3 Jordy Hidalgo. [address], [address], [place], [place], [address] , [place]. [phone] Referring Provider: Wilfred Lopez [address], [place], [place], [address]. tel:[phone] OFFICE/OUTPA TIENT VISIT, [facility], [address], [place], [place], [address], [place] tel:[phone] [facility] cough (chief complaint)H TN (chief complaint) Dietary surveillance and counselingAcute upper respiratory infections of other multiple sitesHypertension, UnspecifiedDiabete s Mellitus, Adult Onset, Uncontrolled 3 Jordy Hidalgo. [address], [address], [place], [place], [address] , [place]. [phone] Referring Provider: Wilfred Lopez [address], [place], [place], [address]. tel:[phone] OFFICE/OUTPA TIENT VISIT, [facility], [address], [place], [place], [address], [place] tel:[phone] [facility] anxiety (chief complaint)H TN (chief complaint)D M (chief complaint) Dietary surveillance and counselingHyperten sarah, UnspecifiedDiabete s Mellitus, Adult Onset, UncontrolledLumbag o 3 Jordy Hidalgo. [address], [place], [place], [address] , [place]. [phone] Referring Provider: Wilfred Lopez [address], [place], [place], [address]. tel:[phone] OFFICE/OUTPA TIENT VISIT, [facility], [address], [place], [place], [address], [place] tel:[phone] [facility] DM/HTN (chief complaint)a nxiety (chief complaint)a nemia (chief complaint) Dietary surveillance and counselingDiabetes Mellitus Type 2, UncomplicatedAnemi aLumbagoHypertensi on, Unspecified 2 Jordy Hidalgo. [address], [place], [place], [address] , [place]. tel:[phone] Referring Provider: Wilfred Lopez [address], [place], [place], [address]. tel:[phone] OFFICE/OUTPA TIENT VISIT, [facility], [address], [place], [place], [address], tel:[phone] [facility] back pain (chief complaint)a nxiety (chief complaint)D M (chief complaint) Dietary surveillance and counselingLumbagoD iabetes Mellitus Type 2, UncomplicatedHyper tension, Unspecified 2 Jordy Hidalgo. [address], [facility] [address], [place], [place], [address] , . tel:[phone] Referring Provider: Wilfred Lopez [facility] [address], [place], [place], [address]. tel:[phone] OFFICE/OUTPA TIENT VISIT, [facility], [address], [place], [place], [address], tel:[phone] [facility] anxiety (chief complaint)b ack pain (chief complaint)H TN (chief complaint)a nemia (chief complaint) Dietary surveillance and counselingLumbagoA nemiaHypertension, Unspecified 2 Jordy Hidalgo. [address], [place], [place], [address] , [place]. tel:[phone] Referring Provider: Wilfred Lopez [facility], [place], [place], [address]. tel:[phone] Family History Family Member Type Diagnosis Age At Onset Father Problem (finding) unknown Mother Problem (finding) Alive and well Brother Problem (finding) Alive and well Payers Payer name Insurance type Covered alliance party ID Authoriza tion(s) No Information Social [...] ordered Referral Referred To: Tosha Kilpatrick [address] [facility] [address] [place], [phone] Ordered: Referrals: Tosha Kilpatrick. 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 Pt has been using CPAP nightly [...] her BP is borderline Anxiety Additional infor julian: Pt has chornic anxiety. Pt denies any [...] her strip. Instructions Date Instruction Additional Infor anthonyion Prescribed Diet Educ ation/Lifestyle Education Regarding Diet [...] counseling Related to Di etary surveillance counseling Activity counseling provided Rel ated [...] Mental Status Date Cognitive Assessment Orientation - Bush ed to time, place, person, situation.
--- OUTSIDE RECORDS SUMMARY | 2023-06-23 10:45 | XMS_ITS ---
Author Organization [facility] Address [address] [place] [id number] Care Team Providers Care Lead Front Desk Agent Name Role Phone Kelvin MEMBRENO, Andres Primary Care Provider Rudy Moses Unavailable [phone] ALLERGIES Allergen (clinical drug ingredient) Drug/Non Drug Allergy documented on EMR Reaction Allergy Type Onset Date Status cephalexin Cephalexin Unknown Drug Allergy Activ e morphine Morphine Sulfate Unknown Drug Allergy Active Floxin [...] for 30 day(s) Unknown Vitamin D (Ergocalciferol) 95703 UNIT 1 capsule Orally Once a week [...] smoker Encounters Encounter Location Date Provider Diagnosis [facility] [phone] 06/23/2023 Rudy Veloz Acute kidney failure , [...] has questioNs re Ozempic,pt advised to see hydrochloric manufacturing supervisor re Ozempic and obesity/DM. Clinically appears euvlemic [...] has questioNs re Ozempic,pt advised to see hydrochloric manufacturing supervisor re Ozempic and obesity/DM. Clinically appears euvlemic [...] has questioNs re Ozempic,pt advised to see hydrochloric manufacturing supervisor re Ozempic and obesity/DM. Clinically appears euvlemic [...] has questioNs re Ozempic,pt advised to see hydrochloric manufacturing supervisor re Ozempic and obesity/DM. Clinically appears euvlemic [...] has questioNs re Ozempic,pt advised to see hydrochloric manufacturing supervisor re Ozempic and obesity/DM. Clinically appears euvlemic [...] has questioNs re Ozempic,pt advised to see hydrochloric manufacturing supervisor re Ozempic and obesity/DM. Clinically appears euvlemic [...] has questioNs re Ozempic,pt advised to see hydrochloric manufacturing supervisor re Ozempic and obesity/DM. Clinically appears euvlemic [...] has questioNs re Ozempic,pt advised to see hydrochloric manufacturing supervisor re Ozempic and obesity/DM. Clinically appears euvlemic [...] has questioNs re Ozempic,pt advised to see hydrochloric manufacturing supervisor re Ozempic and obesity/DM. Clinically appears euvlemic [...] has questioNs re Ozempic,pt advised to see hydrochloric manufacturing supervisor re Ozempic and obesity/DM. Clinically appears euvlemic [...] ORAL CAVITY: mucosa moist LAB SUMMARY: ///// [id number] Creat21.91.81.61.72 [id number] K5.44.64.94.75.35.2 [id number] Sdmqumq07.310.410.48.99.69.4 PO4 4.55.4 Albumin 2.833.1 [id number] EGFR [id number] Hgb8.5 8.49.19.8 Hct26.6 26.127.429.4 WBC9.9 119.48 [id number] Vit D 22.2 20.4 Iron 61 67 [...] for last 5-6 months,stopped recently. Pt states notch grinder started her on Kerrendia aling with Veltassa. Presenting symptoms Patient reported As above.
--- OUTSIDE RECORDS SUMMARY | 2023-06-24 11:15 | XMS_ITS ---
Author Organization [facility] Address [address] [place] [phone] Care Team Providers Care Weight Training Instructor Name Role Phone Kelvin MEMBRENO, Andres Primary Care Provider Rudy Moses Unavailable [phone] REASON FOR VISIT NO SHOW/RESCHEDULED MULTIPLE APPTS Encounters Encounter Location Date Provider Diagnosis [facility] [address] [id number] 06/24/2023 Rudy Veloz PLAN OF TREATMENT No Information
--- NOTE | ~2024-11-24 | XR_ITS ---
EXAMINATION: XR chest 2V DATE: 11/24/2024 18:55 INDICATION: Assess for fluid overload TECHNIQUE: frontal and lateral views of the chest were obtained. COMPARISON: Chest radiograph dated 09/21/2024 FINDINGS: The lungs are clear with no focal airspace opacities, pulmonary edema, pleural effusion or pneumothorax. The cardiomediastinal silhouette is normal. Mild thoracolumbar dextrocurvature. IMPRESSION: 1. No acute cardiopulmonary disease. Reviewed, dictated and finalized at location A.
[2024-11-24 16:08] VITALS: BP 161/68; PULSE 81; RESP 16; TEMP 36.6; O2SAT 100
--- OUTSIDE RECORDS SUMMARY | 2024-11-24 16:34 | XMS_ITS | Encounter Summary ---
Author Organization [facility] Healthcare Address [address] [place] [address] Care Team Providers Care Technical Solutions Consultant Name Role Phone Matias Warren MD Primary Care Provider [phone] Encounter Details Date Type Department Care Team ([facility] st Contact Info) Description 10/02/2024 Results Follow-Up [facility] Medical Group Convenient Care at [address] [place] [address] Arben Westbrook, AVA [address] [facility] [place] [place] [address] XR Chest Pa Lateral 2 Views Social History Tobacco Use Types Packs/Day Years Used Date Smoking Tobacco: Former Cigarettes 2015 Smokeless Tobacco: Never Alcohol Use Standard Drinks/Week Comments No 0 (1 standard drink = 0.6 oz pur e alcohol) [facility] Utilities Answer Date Recorded In the past 12 months has [employer], gas, oil, or water [employer] threatened to shut off services in your home? No 07/23/2023 Social Connection and Isolation Panel Answer Date Recorded In a typical week, how many times do you talk on the phone with family, friends, or neighbors? More than three times a week 07/23/2023 How often do you get togethe r with friends or relatives? Once a week 07/23/2023 How often do you attend [facility] or bahai services? Never 07/23/2023 Do you belong to [...] place to sleep or slept in a fpc (including now)? 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
--- OUTSIDE RECORDS SUMMARY | 2024-11-24 16:34 | XMS_ITS | Clinical Summary ---
Author Organization [facility] Address [address] [place] [address] Phone Care Team Providers Care Data Processing Consultant Name Role Phone Matias [place] MD Primary Care Provider [phone] Allergies Active Allergy Reactions Criticality Noted Date [...] Diabetes: Nephropathy Screening 10/16/2019 10/15/2018, 02/08/2017, 01/17/2017 Zoster Immunization (1 of 2) 2024 Influenza Immunization (#1) 11/08/202412/09, 12/03/2019, 02/06/2018, Additional history exists SARS-COV-2 Immunization ( season) 2024 06/09/2020, 05/12/2020 Respiratory Syncytial Virus (RSV) Immunization (Adult) (1 [...] Recently Relevant to Health Maintenance Insurance MEDICARE [facility] Care Teams Data Processing Consultant Relationship Specialty Start Date End Date Matias [place] MD [address] [place] [id number] PCP - General Family Medicine 07/09/23
--- OUTSIDE RECORDS SUMMARY | 2024-11-24 16:34 | XMS_ITS | Clinical Summary ---
Author Organization [facility] Address [address] [place] [address] Care Team Providers Care Bounty Hunter Name Role Phone Teresita Cortez MD Primary Care Provider [phone] Source Comments [facility],non-owned Affiliates and Associated Physician Practices is amultiple site organization consisting of ambulatory clinics and hospital sitesin [place], [place], [place] and [place]. This disclosure is being madepursuant to the Care Everywhere program and may not contain all information available regarding this patient. Last updated 17.[facility] [employer] Allergies Active Allergy Reactions Criticality Noted Date [...] DTAP/TDAP/TD VACCINES (1 - Tdap) 03/11/2004 03/10/2004 DEPRESSION SCREENING 03/10/2024 PNEUMOCOCCAL VACCINE 50+ (1 of 1 - PCV) 2024 ZOSTER VACCINE (1 of 2) 2024 COVID-19 VACCINE (1 - 2023-2 5 season) 2024 INFLUENZA VACCINE (#1) 2024 0, 03/10/2010 [...] Insurance MEDICAID - OUT OF STATE MEDICARE [facility] SELF PAY NO INSURANCE Member Subscriber Plan / Payer (Ef fective for All Dates) Name:Joann Tavares Member ID:Not on file Relation to Subscriber:Not on file Name:JOANN TAVARES Subscriber ID:Not on file (Home) Address: [facility] [place] [address] [address] Payer ID:Not on file Group ID:Not on file Type:Self Pay Address: [place], [place] Care Teams Bounty Hunter Relationship Specialty Start Date End Date Teresita Cortez MD [address] [place] [address] [address] [place] [phone] PCP - General 05/07/19
--- OUTSIDE RECORDS SUMMARY | 2024-11-24 16:34 | XMS_ITS | Clinical Summary ---
Author Organization [facility] Address [address] [place] [phone] Care Team Providers Care Faculty Support Coordinator Name Role Phone Matias [place] MD Primary Care Provider [phone] Allergies Active Allergy Reactions Criticality Noted Date [...] DIRECTED TO CHECK BLOOD SUGAR 4 Active ferrous sulfate 325 mg (65 mg of elemental iron) tablet Take 1 tablet (325 mg total) by mouth daily with breakfast Active Kerendia 10 mg tablet 20 mg nightly 3 Active guaiFENesin ER (MUCINEX) 600 mg 12 hr tablet Take 1 tablet (600 mg total) by mouth 2 (two) times a day for 3 days 6 tablet 4 Active Additional Information Patient not taking.Reported on [...] 2 (two) times a day 4 Active carvediloL (COREG) 25 mg tablet Take 1 tablet (25 mg total) by mouth 2 (two) times a day 4 Active pen needle, diabetic 31 gauge x 5/16 needle Use with Insulin pen. 5 Active diazePAM (VALIUM) 10 mg tablet 5 Active ezetimibe (ZETIA) 10 mg tablet Take 1 tablet (10 mg total) by mouth daily 4 Active benzonatate (TESSALON) 100 mg capsuleIndicati ons:Cough Take 1 capsule (100 mg total) by mouth 3 (three) times a day as needed for cough 42 capsule Active Active Problems Problem Noted Date Diagnosed Date Sepsis, due to unspecified o rganism, unspecified whether acute organ dysfunction present 07/20/2023 Encounters Date Type Department Care Team Description 10/02/2024 Results Follow-Up [facility]ient [facility] at [address] [address] Arben Westbrook NP XR Chest Pa Lateral 2 Views 10/01/2024 3:59 PM CDT - 10/01/2024 11:59 PM CDT Hospital Encounter [facility] Radiology - Outpatient Center at [address] [place] [address] Bronchitis Discharge Disposition: Discharge to home or self care 10/01/2024 3:15 PM CDT Office Visit 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 MJ: SISSY Report ID: [id number] Reading Location: [id number] Procedure Note Jeff Barnett MD - 10/02/2024 [...] Jeff Barnett M.D. MJ: SISSY Report ID: [id number] Reading Location: [place] [address] Maria Esther Kraft QUILL CLEANER IMG XR PROCEDURES Final Re sult * POC Influenza A/B, COVID-19 antigen (10/01/2024 3:40 PM CDT) [facility] Influenza A Ag, POC Negative Negative [facility] Influenza B Ag, POC Negative Negative [facility] COVID-19 Ag POC Presumptive Negative Presumptive Negative, Invalid [facility] Nasal 10/01/2024 3:40 PM CDT Maria Esther Kraft NP POINT OF CARE TEST ORDERAB LES Final Result [facility] [address] [address] * POCT rapid strep A (10/01/2024 3:39 PM CDT) [facility] Rapid Strep A, POC Negative Negative Swab 10/01/2024 3:39 PM CDT Maria Esther Kraft NP POINT OF CARE TEST ORDERAB LES Final Result * POCT respiratory syncytial virus (10/01/2024 3:35 PM CDT) [facility] RSV Rapid Ag Negative Negative, Invalid Nasopharyngeal 10/01/2024 3: 35 PM CDT Maria Esther Kraft QUILL CLEANER POINT OF CARE TEST ORDERAB LES Final Result from Last 3 Months Insurance [employer] MEDICARE [employer] MEDICARE [facility] MEDICARE [facility] Address: [address] [address] [place] [address] Advance Directives For more information, please contact: [phone] * Full Code (Latest Code Status on File) Date Activated Date Inactivated Comments 07/23/2023 3:39 PM 07/25/2023 6:34 PM Care Teams Faculty Support Coordinator Relationship Specialty Start Date End Date Matias [place] MD [address] [place], [place] [id number] PCP - General Internal Medicine 07/20/23
--- OUTSIDE RECORDS SUMMARY | 2024-11-24 16:34 | XMS_ITS | Patient Health Record ---
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) Active confirmed Diabetic renal disease (046649483) Problem Type 2 diabetes mellitus with diabetic neuropathy, unspecified (E11.40) Active confirmed Diabetic peripheral neuropathy associated with type 2 diabetes mellitus (7404929117106) Problem 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) Active confirmed 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 (10368499966471) Problem Obesity, unspecified (E66.9) Active confirmed Obesity (426319689) Problem Vitamin D deficiency, unspecified (E55.9) Active confirmed Vitamin D deficiency (59017847) Problem Iron deficiency anemia, unspecified (D50.9) Active confirmed Iron deficiency anemia (65589054) PLAN OF TREATMENT Pending Test Test Name [...] Insured Coverage Start Date Coverage End Date [employer] [employer] [address] [place], [place] [id number] Joann Tavares Self - patient is the insured [place] [address] [place] [address] [id number] Joann Tavares Self - patient is the insured [facility] [address] [address] [place] [address] [phone] [id number] Joann Tavares Self - patient is the [...]
--- OUTSIDE RECORDS SUMMARY | 2024-11-24 16:34 | XMS_ITS | Encounter Summary ---
Author Organization [facility] Address [address] [place] [address] Care Team Providers Care Marine Cargo Surveyor Name Role Phone Matias [place] MD Primary Care Provider [phone] Encounter Details Date Type Department Care Team (Late st Contact Info) Description 11/23/2024 External Device Data STL ABSTRACTION Provider, Abstract [...] as of this encounter Plan of Treatment Upcoming Encounters Date Type Department Care Team (Late st Contact Info) Description 12/21/2024 1:00 PM CDT Office Visit [facility] Oncology and Hematology - [place] [address] [facility] [address] [place] [address] Hector Krishna MD [address] [facility] [address] [place] [address] documented as of this encounter Visit Diagnoses Not on filedocumented in this encounter Care Teams Marine Cargo Surveyor Relationship Specialty Start Date End Date Matias [place] MD [address] [place] [phone] PCP - General Family Practice 11/01/24 documented as of this encounter
--- OUTSIDE RECORDS SUMMARY | 2024-11-24 16:34 | XMS_ITS | Clinical Summary ---
Author Organization [facility] [employer] [facility] [employer] [facility] Address [address] [address] Phone Care Team Providers Care Computer Equipment Repairer Name Role Phone Matias [place] MD Primary Care Provider [phone] Allergies Active Allergy Reactions Criticality Noted Date [...] time each day Active ergocalciferol 1.25 MG (53963 UT) capsule Take 50,000 Units by mouth [...] 8.6(A) 8.7 - 10.7 mg/dL eGFR Non-Afr Nigerian 25(L) Hemoglobin A1C 8.5(A) 4.0 - 6.0 Glucose, UA 4+ mg/dL Bilirubin, UA Negative Ketones, UA Negative Urine Specific [place] 1.015 Blood, UA 3+ Randy/ul pH, UA [...] Recently Relevant to Health Maintenance Insurance Medicare [facility] Care Teams Computer Equipment Repairer Relationship Specialty Start Date End Date Matias [place] MD [address] [place] [phone] PCP - General Internal Medicine 07/24/23
--- OUTSIDE RECORDS SUMMARY | 2024-11-24 16:35 | XMS_ITS | Clinical Summary ---
Author Organization [facility] Annemarie Jaime Address [address] [place] [address] Care Team Providers Care Manager Environmental Health Name Role Phone Matias [place] MD Primary Care Provider [phone] Allergies Active Allergy Reactions Criticality Noted Date [...] mouth daily 90 Tablet 5 6:48 PM SAW REPAIRER 02/18/20 24 Active Insulin Syringe-Needle U-100 (BD Insulin Syringe Ultra-Fine) 1 mL 31 gauge x 5/16 Syringe USE FOR INSULIN INJECTIONS 200 Each 5 3:26 PM SAW REPAIRER 04/09/19 25 Active ferrous sulfate 325 mg (65 mg iron) tablet Take 1 Tablet (325 mg) by mouth daily. 100 Tablet 5 3:26 PM SAW REPAIRER 04/09/19 25 Active patiromer calcium sorbitex (Veltassa) [...] daily 30 Packet 11 5 3:26 PM SAW REPAIRER 04/09/19 25 Active amLODIPine (NORVASC) 10 mg tablet Take 1 Tablet (10 mg) by mouth daily. 90 Tablet 1 5 6:03 PM CDT 06/01/19 25 Active carvediloL (COREG) 25 mg tablet Take 1 Tablet (25 mg) by mouth 2 times daily. 180 Tablet 5 6:49 PM CDT 06/25/19 25 Active diazePAM (VALIUM) 10 mg tablet [...] 2:29 PM CDT 09/24/19 25 Active Insulin [place], Disposable, (BD Ultra-Fine Short Pen Needle) 31 gauge x 5/16 Needle Use with Insulin pen. 100 Each 3 5 6:08 PM CDT 09/24/19 25 Active insulin glargine [...] 1 Each 5 3:13 PM CDT 10/17/19 25 Active metOLazone (ZAROXOLYN) 2.5 mg tablet Take 1 Tablet (2.5 mg) by mouth 1 time daily as needed for swelling. 90 Tablet 5 5:24 PM CDT 10/19/19 25 Active ergocalciferol (Vitamin D2) 50,000 unit capsule Take 1 Capsule (50,000 Units) by mouth every 7 days. 13 Capsule 5 5:02 PM CDT 10/19/19 25 Active torsemide (DEMADEX) 20 mg tablet Take 1 Tablet (20 mg) by mouth daily with 10 mg to equal 30 mg total daily dose. 30 Tablet 5 5:02 PM CDT 11/02/19 25 Active empagliflozin (JARDIANCE) 25 mg tablet Take 1 Tablet (25 mg) by mouth daily in the morning. 90 Tablet 5 5:24 PM CDT 11/09/19 25 Active diazePAM (VALIUM) 10 mg tablet Take 1 Tablet (10 mg) by mouth 3 times daily as needed FOR ANXIETY. 84 Tablet 5 2:12 PM CDT 11/16/19 25 Active torsemide (DEMADEX) 20 mg tablet Take 2 tablets by mouth Oral Daily 60 Tablet 1 11/24/19 25 Active insulin glargine-yfgn 100 unit/mL vial Inject 60 units at bedtime 30 mL 2 4 2:26 PM SAW REPAIRER 01/28/20 24 2024 Discontinued(A lternate therapy prescribed) insulin lispro (HumaLOG,ADMEL OG) 100 unit/mL pen syringe INJECT 14 UNITS WITH MEALS 15 mL 2 5 3:26 PM SAW REPAIRER 04/09/19 25 2024 Discontinued(D uplicate Therapy) insulin lispro (HumaLOG,ADMEL OG) 100 unit/mL pen syringe INJECT 14 UNITS WITH MEALS 15 mL 2 5 6:03 PM CDT 06/01/19 25 2024 Discontinued(D uplicate Therapy) empagliflozin (JARDIANCE) 25 mg tablet Take 1 Tablet (25 mg) by mouth daily in the morning. 90 Tablet 5 4:14 PM CDT 07/26/19 25 2024 Discontinued empagliflozin (Jardiance) 25 mg tablet Take 1 Tablet (25 mg) by mouth daily in the morning. 90 Tablet 1 07/27/19 25 2024 Discontinued(D uplicate Therapy) insulin glargine-yfgn 100 unit/mL pen syringe Inject 60 Units by subcutaneous injection daily. 15 mL 08/24/19 25 2024 Discontinued(A lternate therapy prescribed) torsemide (DEMADEX) 20 mg tablet TAKE ONE TABLET DAILY ALONG WITH A 10 MG TO EQUAL 30 MG DAILY 30 Tablet 5 2:29 PM CDT 09/24/19 25 2024 Discontinued diazePAM (VALIUM) 10 mg tablet Take 1 Tablet (10 mg) by mouth 3 times daily as needed for anxiety. 84 Tablet 3:13 PM CDT 10/19/19 25 2024 Discontinued(R eorder) Active Problems Problem Noted Date Diagnosed Date Chronic anemia 11/10/2024 Iron deficiency anemia due to chronic blood loss 11/10/2024 Encounters Date Type Department Care Team Description 11/23/2024 External Device Data STL ABSTRACTION Provider, Abstract 11/17/2024 Telephone [facility] Oncology and Hematology - [place] [address] [place] [address] Maryan Raya MD IV Orders 11/10/2024 4:00 PM CDT Telephone Check Up [facility] Oncology and Hematology - [place] [address] [place] [address] Maryan Raya MD Chronic anemia (Primary Dx); Iron deficiency anemia due to chronic blood loss 11/09/2024 Orders Only [facility] Oncology and Hematology - [place] [address] [place] [address] Hector Krishna MD 11/05/2024 Orders Only [facility] Oncology and Hematology - [place] [address] [place] [address] Hector Krishna MD 11/04/2024 Orders Only [facility] Oncology and Hematology - [place] [address] [place] [address] Hector Krishna MD 11/03/2024 Orders Only [facility] Oncology and Hematology - [place] [address] [place] [address] Hector Krishna MD 11/02/2024 Orders Only [facility] Oncology and Hematology [facility] [address] [place] [address] Hector Krishna MD 11/01/2024 3:00 PM CDT Office Visit [facility] Oncology and Hematology [facility] [address] [place] [address] Hector Krishna MD Chronic anemia (Primary Dx) [...] Description 12/21/2024 1:00 PM CDT Office Visit [facility] Oncology and Hematology - [place] [address] [facility] [address] [place] [address] Hector Krishna MD [address] [facility] [address] [place] [address] Health Maintenance Due Date Last [...] T d or Tdap) 10/20/2024 10/20/2014, 10/10/2014 Procedures Procedure Name Priority Date/Time Associated Diagnosis Comments PROTEIN ELECTROPHORESIS, CSF Routine 11/01/2024 3:24 PM CDT COMPREHENSIVE METABOLIC PANEL Routine 11/01/2024 11:04 AM CDT METHYLMALONIC ACID Routine 11/01/2024 10 :09 AM CDT CHG SOLUBLE TRANSFERRIN RECEPTOR Routine 11/01/2024 7:44 AM CDT ERYTHROPOIETIN LEVEL Routine 11/01/2024 7:33 AM CDT from Last 3 Months Results * PROTEIN ELECTROPHORESIS, CSF (11/01/2024 3:24 PM CDT) Cerebrospinal fluid CEREBROSPINAL FLUID / Unknown us Hector Krishna MD BODY FLUIDS AND STOOLS Final Re sult * COMPREHENSIVE METABOLIC PANEL (11/01/2024 11:04 AM CDT) Blood us Hector Krishna MD CHEMISTRY ORDERABLES Final Resu lt * METHYLMALONIC ACID (11/01/2024 10:09 AM CDT) Blood us Hector Krishna MD CHEMISTRY ORDERABLES Final Resu lt * CHG SOLUBLE TRANSFERRIN RECEPTOR (11/01/2024 7:44 AM CDT) us Hector Krishna MD CHG - LABORATORY Final Result * ERYTHROPOIETIN LEVEL (11/01/2024 7:33 AM CDT) Blood us Hector Krishna MD CHEMISTRY ORDERABLES Final Resu lt from Last 3 Months Insurance RX [employer] (INTERNAL) [facility] [employer] RX [employer] Member Subscriber Plan / Payer (Ef fective 2024-Present) Name:ChaitanyaJoann Relation to Subscriber:Self Name:Chaitanya Joann Elsie Subscriber ID:Not on file Payer ID:Not on file Type:Not on file Address: [address] [employer] [employer] Care Teams Manager Environmental Health Relationship Specialty Start Date End Date Matias [place] MD [address] [place] [phone] PCP - General Family Practice 11/01/24
--- OUTSIDE RECORDS SUMMARY | 2024-11-24 17:42 | XMS_ITS | Encounter Summary ---
Author Organization [facility] Address [address] [place] [address] Care Team Providers Care Customer Counter Associate Name Role Phone Matias [place] MD Primary Care Provider [phone] Encounter Details Date Type Department Care Team [...] 12/21/2024 1:00 PM CDT Office Visit [facility] Oncology and Hematology - [place] [address] [facility] [address] [place] [address] Hector Krishna MD [address] [facility] [address] [place] [address] documented as of this encounter Visit Diagnoses Not on filedocumented in this encounter Care Teams Customer Counter Associate Relationship Specialty Start Date End Date Matias [place] MD [address] [place] [phone] PCP - General Family Practice 11/01/24 documented as of this encounter
--- OUTSIDE RECORDS SUMMARY | 2024-11-24 17:42 | XMS_ITS | Encounter Summary ---
Author Organization [facility] Address [address] [place] [address] Care Team Providers Care Credit Manager Name Role Phone Matias [place] MD Primary Care Provider [phone] Encounter Details Date Type Department Care Team ([facility] st Contact Info) Description 10/02/2024 Results Follow-Up [facility] Medical Group Convenient Care at [address] [place] [address] Arbne [place], AVA [address] [facility] [place] [address] XR Chest Pa Lateral 2 Views Social History Tobacco Use Types Packs/Day Years Used Date Smoking Tobacco: Former Cigarettes 2015 Smokeless Tobacco: Never Alcohol Use Standard Drinks/Week Comments No 0 (1 standard drink = 0.6 oz pur e alcohol) [facility] Utilities Answer Date Recorded In the past 12 months has [employer], gas, oil, or water [employer] threatened to shut off services in your home? No 07/23/2023 Social Connection and Isolation Panel Answer Date Recorded In a typical week, how many times do you talk on the phone with family, friends, or neighbors? More than three times a week 07/23/2023 How often do you get togethe r with friends or relatives? Once a week 07/23/2023 How often do you attend [facility] or scientologist services? 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
--- OUTSIDE RECORDS SUMMARY | 2024-11-24 17:42 | XMS_ITS | Clinical Summary ---
Author Organization [facility] Address [address] [place] [address] Phone Care Team Providers Care Residential Program Director Name Role Phone Matias [place] MD Primary Care Provider [phone] Allergies Active Allergy Reactions Criticality Noted Date [...] Recently Relevant to Health Maintenance Insurance MEDICARE [facility] Care Teams Residential Program Director Relationship Specialty Start Date End Date Matias [place] MD [address] [place] [phone] PCP - General Family Medicine 07/09/23
--- OUTSIDE RECORDS SUMMARY | 2024-11-24 17:42 | XMS_ITS | Clinical Summary ---
Author Organization [facility] Address [address] [place] [id number] Care Team Providers Care Commercial Production Editor Name Role Phone Matias Warren MD Primary Care Provider [phone] Allergies Active Allergy Reactions Criticality Noted Date [...] Care Team Description 10/02/2024 Results Follow-Up [facility] Medical [facility] at [address] [address] Arben Westbrook NP XR Chest Pa Lateral 2 Views 10/01/2024 3:59 PM CDT - 10/01/2024 11:59 PM CDT Hospital Encounter [facility] at [address] [place] [address] Bronchitis Discharge Disposition: Discharge to home or self care 10/01/2024 3:15 PM CDT Office Visit 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 MJ: SISSY Report ID: [id number] Reading Location: [id number] Procedure Note Jeff Barnett MD - 10/02/2024 [...] Jeff Barnett M.D. MJ: SISSY Report ID: [id number] Reading Location: [place] [address] Maria Esther Kraft SPEECH THERAPIST IMG XR PROCEDURES Final Re sult * POC Influenza A/B, COVID-19 antigen (10/01/2024 3:40 PM CDT) [facility] Influenza A Ag, POC Negative Negative [facility] Influenza B Ag, POC Negative Negative [facility] COVID-19 Ag POC Presumptive Negative Presumptive Negative, Invalid [facility] Nasal 10/01/2024 3:40 PM CDT Maria Esther Kraft NP POINT OF CARE TEST ORDERAB LES Final Result [facility] [address] [address] * POCT rapid strep A (10/01/2024 3:39 PM CDT) [facility] Rapid Strep A, POC Negative Negative Swab 10/01/2024 3:39 PM CDT Maria Esther Kraft NP POINT OF CARE TEST ORDERAB LES Final Result * POCT respiratory syncytial virus (10/01/2024 3:35 PM CDT) [facility] RSV Rapid Ag Negative Negative, Invalid Nasopharyngeal 10/01/2024 3: 35 PM CDT Maira Esther Kraft SPEECH THERAPIST POINT OF CARE TEST ORDERAB LES Final Result from Last 3 Months Insurance [employer] MEDICARE [employer] MEDICARE [facility] MEDICARE [facility] Address: [address] [address] [place] [address] Advance Directives For more information, please contact: [phone] * Full Code (Latest Code Status on File) Date Activated Date Inactivated Comments 07/23/2023 3:39 PM 07/25/2023 6:34 PM Care Teams Commercial Production Editor Relationship Specialty Start Date End Date Matias Warren MD [address] [place], [place] [id number] PCP - General Internal Medicine 07/20/23
--- OUTSIDE RECORDS SUMMARY | 2024-11-24 17:42 | XMS_ITS | Clinical Summary ---
Author Organization [facility] Address [address] [place] [address] Care Team Providers Care Quantitative Equity Head Name Role Phone Teresita Cortez MD Primary Care Provider [phone] Source Comments [facility],non-owned Affiliates and Associated Physician Practices is amultiple site organization consisting of ambulatory clinics and hospital sitesin [place], [place], [place] and [place]. This disclosure is being madepursuant to the Care Everywhere program and may not contain all information available regarding this patient. Last updated 17.[facility] Allergies Active Allergy Reactions Criticality Noted Date [...] Insurance MEDICAID - OUT OF STATE MEDICARE [facility] SELF PAY NO INSURANCE Member Subscriber Plan / Payer (Ef fective for All Dates) Name:Joann Tavares Member ID:Not on file Relation to Subscriber:Not on file Name:JOANN TAVARES Subscriber ID:Not on file (Home) Address: [facility] [place] [address] [address] Payer ID:Not on file Group ID:Not on file Type:Self Pay Address: [place], [place] Care Teams Quantitative Equity Head Relationship Specialty Start Date End Date Teresita Cortez MD [address] [place] [address] [address] [place] [phone] PCP - General 05/07/19
--- OUTSIDE RECORDS SUMMARY | 2024-11-24 17:43 | XMS_ITS | Clinical Summary ---
Author Organization [facility] Annemarie Jaime Address [address] [place] [address] Care Team Providers Care Database Design Analyst Name Role Phone Matias Warren MD Primary [...] mouth daily 90 Tablet 5 6:48 PM OPTICAL DESIGNER 02/18/20 24 Active Insulin Syringe-Needle U-100 (BD Insulin Syringe Ultra-Fine) 1 mL 31 gauge x 5/16 Syringe USE FOR INSULIN INJECTIONS 200 Each 5 3:26 PM OPTICAL DESIGNER 04/09/19 25 Active ferrous sulfate 325 mg (65 mg iron) tablet Take 1 Tablet (325 mg) by mouth daily. 100 Tablet 5 3:26 PM OPTICAL DESIGNER 04/09/19 25 Active patiromer calcium sorbitex (Velt[place]) [...] daily 30 Packet 11 5 3:26 PM OPTICAL DESIGNER 04/09/19 25 Active amLODIPine (NORVASC) 10 mg [...] 2:29 PM CDT 09/24/19 25 Active Insulin [place], Disposable, (BD Ultra-Fine Short Pen Needle) 31 [...] bedtime 30 mL 2 4 2:26 PM OPTICAL DESIGNER 01/28/20 24 2024 Discontinued(A lternate therapy prescribed) insulin lispro (HumaLOG,ADMEL OG) 100 unit/mL pen syringe INJECT 14 UNITS WITH MEALS 15 mL 2 5 3:26 PM OPTICAL DESIGNER 04/09/19 25 2024 Discontinued(D uplicate Therapy) insulin [...] Data STL ABSTRACTION Provider, Abstract 11/17/2024 Telephone [facility] - [place] [address] [place] [address] Maryan Raya MD IV Orders 11/10/2024 4:00 PM CDT Telephone Check Up [facility] - [place] [address] [place] [address] Maryan Raya MD Chronic anemia (Primary Dx); Iron deficiency anemia due to chronic blood loss 11/09/2024 Orders Only [facility] - [place] [address] [place] [address] Hector Krishna MD 11/05/2024 Orders Only [facility] - [place] [address] [place] [address] Hector Krishna MD 11/04/2024 Orders Only [facility] - [place] [address] [place] [address] Hector Krishna MD 11/03/2024 Orders Only [facility] - [place] [address] [place] [address] Hector Krishna MD 11/02/2024 Orders Only [facility] On[facility] Hematology [facility] [address] [place] [address] Hector Krishna MD 11/01/2024 3:00 PM CDT Office Visit [facility] [address] [place] [address] Hector Krishna MD Chronic anemia (Primary Dx) [...] Description 12/21/2024 1:00 PM CDT Office Visit [facility] Hematology - [place] [address] [facility] [address] [place] [address] Hector Krishna MD [address] [facility] [address] [place] [address] Health Maintenance Due Date Last [...] RISA ARIAS [employer] Care Teams Database Design Analyst Relationship Specialty Start Date End Date Matias Warren MD [address] [place] [phone] PCP - General Family Practice 11/01/24
[2024-11-24 18:14] LABS: Hematocrit 27.3 % (37.0-47.0); Hemoglobin 9.4 g/dL (12.0-15.0); Immature Granulocyte Percent A 0.6 % (0-0.5); Lymphocytes Absolute Auto 1.23 K/mm3 (0.9-3.2); Mean Corpuscular HGB Conc 34.4 g/dl (32-36); Mean Corpuscular Hemoglobin 28.2 pg (26-34); Mean Corpuscular Volume 82.0 fl (80-100); Nucleated Red Blood Cells Absolute Auto 0.000 K/mm3 (0.0-0.012); Nucleated Red Blood Cells Perc 0.0 % (0.0-0.2); Platelet Count Result 266 k/mm3 (150-375); Red Blood Count 3.33 M/mm3 (4.2-5.4); White Blood Count 9.7 K/mm3 (4.5-10.0)
[2024-11-24 18:24] LABS: Alanine Aminotransferase 26 U/L (6-35); Albumin Level 3.8 g/dL (3.5-5.1); Alkaline Phosphatase 107 U/L (38-126); Anion Gap 10 mmol/L (4-12); Aspartate Amino Transferase 29 U/L (14-36); Bilirubin,Total 0.4 mg/dL (0.2-1.3); Blood Urea Nitrogen 96 mg/dL (7-17); Calcium 9.7 mg/dL (8.4-10.2); Carbon Dioxide 22 mmol/L (22-30); Chloride 95 mmol/L (98-107); Estimated CRCL calculation 14 ml/min; Estimated Glomerular Filt Rate 7; Glucose 321 mg/dL (65-110); Potassium 3.8 mmol/L (3.4-5.0); Sodium 127 mmol/L (137-145); Total Protein 7.5 g/dL (6.3-8.2)
--- NOTE | 2024-11-24 18:32 | ED.RECABL ---
HPI - Recheck/Abnormal Lab/Rx General Chief Complaint: Recheck/Abnormal Lab/Rx Stated Complaint: AMMON Time Seen by Provider: 11/24/24 17:35 Source: patient Mode of arrival: ambulatory Limitations: no limitations History of Present Illness HPI narrative: Patient is a 49-year-old female who presents the ED with concern for her kidney function. Patient has history of near end stage CKD, sees Dr. William. She is not currently on dialysis. She reports she had blood work done at [facility] on Friday and her creatinine was 5.33 at that time which is fairly consistent with her baseline. She had blood work repeated today and her creatinine was up to 6.6. She was notified by Dr. William's office to come to the ED for further evaluation. Patient reports that she has had some decreased p.o. intake over the past couple of days. She has felt somewhat fatigued but otherwise in her normal state of health. Denies nausea, vomiting, fevers, chest pain, shortness of breath. She does have history of fluid overload in the past and is on torsemide and metolazone. Denies history of CHF. Related Data Home Medications ?Medication ?Instructions ?Recorded ?Confirmed ?Last Taken ?Type amlodipine 10 mg tablet 10 mg PO HS 05/13/24 10/04/24 05/11/24 History ascorbic acid (vitamin C) 500 mg 500 mg PO DAILY 05/13/24 10/04/24 05/12/24 History chewable tablet (Fruit C-500) carvedilol 25 mg tablet 25 mg PO Q12H 05/13/24 10/04/24 05/12/24 History empagliflozin 25 mg tablet 25 mg PO DAILY 05/13/24 10/04/24 05/12/24 History (Jardiance) ergocalciferol (vitamin D2) 1,250 1,250 mcg PO WEEKLY 05/13/24 10/04/24 Unknown History mcg (50,000 unit) capsule (Vitamin D2) ferrous sulfate 325 mg (65 mg 325 mg PO DAILY 05/13/24 10/04/24 05/12/24 History iron) tablet folic acid 1 mg tablet 1 mg PO DAILY 05/13/24 10/04/24 05/12/24 History insulin lispro 100 unit/mL 15 unit subcut AC 05/13/24 10/04/2425 History subcutaneous pen insulin syringe-needle U-100 1 mL 07/26/24 10/04/24 Unknown History 31 gauge x 5/16 torsemide 40 mg tablet (Soaanz) 40 mg PO DAILY 07/26/24 10/04/24 Unknown History insulin glargine 100 unit/mL 35 unit subcut BID 09/06/24 10/04/24 Unknown History subcutaneous solution (Lantus U-100 Insulin) azithromycin 250 mg tablet 250 mg PO DAILY 10/04/24 10/04/24 Unknown History Allergies Allergy/AdvReac Type Severity Reaction Status Date / Time cephalexin Allergy Mild RASH Verified 11/24/24 16:10 ofloxacin Allergy Mild RASH Verified 11/24/24 16:10 ciprofloxacin Allergy Unknown Hives,Rash Verified 11/24/24 16:10 meperidine Allergy Unknown Hives Verified 11/24/24 16:10 morphine Allergy Unknown Hives Verified 11/24/24 16:10 albuterol AdvReac Migraine Verified 11/24/24 16:10 Review of Systems Review of Systems: All systems reviewed & are unremarkable except as noted in HPI. All systems reviewed & are unremarkable except as noted in HPI and below PMFSH Past Medical History Medical History Degenerative joint disease of knee Acute pain of left knee Right knee pain Diabetes mellitus with chronic kidney disease Benign hypertension with chronic kidney disease Stage 5 chronic kidney disease Pneumonia Heavy periods Acute on chronic anemia Rectal bleeding Morbid obesity Obstructive sleep apnea on CPAP Insulin dependent type 2 diabetes mellitus Chronic anemia Chronic kidney disease, stage 4 (severe) Hypertension Vestibular migraine Surgical History Surgical History History of section Family History Family History Father Diabetes mellitus Mother Hypertension COPD (chronic obstructive pulmonary disease) Social History Social History Social History: Surrogate medical decision maker: Marco A Toledoazzo, spouse. Code status: Full code. Smoking status: Never smoker Tobacco type: cigarettes Alcohol intake: never Substance use: never Substance use type: does not use Do You Feel Safe in your Home?: Yes Lack of Transportation: No Lack of Food: Never True Current Housing: I Have Housing Concerned About Future Housing: No Difficulty Paying Gas/Electric Bills: No Difficulty Paying for Meds: No Currently Unemployed: No Education: Associate Degree Difficulty w/ Childcare or Family Care: No Living arrangements: with family Additional living arrangements comments: Lives with spouse in [place]. They have 3 grown children. 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 Gender identity (if verbalized by the patient): Female Spiritual care concerns: No Exam Narrative: GENERAL: Well appearing, morbidly obese with BMI of 51.5, non-toxic, in no acute distress. HEAD: Normocephalic, atraumatic. RESPIRATORY: Airway patent, respirations nonlabored. Clear to auscultation bilaterally, no rales, rhonchi, wheezing. CARDIOVASCULAR: Regular rate and rhythm without murmurs, rubs, or gallops. MUSCULOSKELETAL: Moves all extremities. No gross deformities. SKIN: Warm, dry, normal color. NEURO: A&O X3. Speech clear. Cranial nerves II-XII grossly intact. Steady gait. No ataxic movements. PSYCHIATRIC: Appropriate mood and affect. Normal interaction. Course Vital Signs Vital signs: Vital Signs Temperature 98 F 11/24/24 16:08 Pulse Rate 81 11/24/24 16:08 Respiratory Rate 16 11/24/24 16:08 Blood Pressure 161/68 H 11/24/24 16:08 Pulse Oximetry 100 11/24/24 16:08 Oxygen Delivery Room Air 11/24/24 16:08 Temperature 98 F 11/24/24 16:08 Pulse Rate 80 11/24/24 22:05 Respiratory Rate 16 11/24/24 22:05 Blood Pressure 157/74 H 11/24/24 22:05 Pulse Oximetry 99 11/24/24 22:05 Oxygen Delivery Room Air 11/24/24 16:08 MDM - Recheck/Abnormal Lab/Rx MDM Narrative Medical decision making narrative: Patient presented to ED with concern for AMMON. History of stage 5 chronic kidney disease, sees Dr. William. Baseline Senior Network Security Architect around 5. Labs Friday showed Senior Network Security Architect 5.3. Labs today Senior Network Security Architect 6.6. Patient was able to show me these lab values on her phone. Vital signs are otherwise stable. Patient in no acute distress. Laboratory studies today show creatinine 5.96. BUN 96. CMP does show sodium 127. This is corrected to 131-132 when accounting for hyperglycemia. Blood glucose on CMP 321. Otherwise stable electrolytes. UA without signs of infection, does show 3+ proteinuria/glucosuria. BNP is mildly elevated to 9604. Patient denying shortness breath. Does not appear frankly fluid overloaded. Chest x-ray is clear. No pulmonary edema. Patient given fluids. Discussed case with Dr. William, nephrology, agrees with 500 cc fluids. If patient feeling okay, at baseline, okay for discharge home with close outpatient follow-up. He has follow-up within the next week with patient. Will have to discuss dialysis at that time. If patient uncomfortable going home, OK to admit. Discussed this with patient. She would prefer to go home. She is feeling fine after fluids. Continues to feel at her normal baseline. Discussed strict return precautions. Advised to contact Nephrology office tomorrow to discuss follow-up appointment. Discharged in stable condition. Medical Records Attestation: I reviewed the patient's medical records. Lab Data Attestation: I reviewed the patient's lab results. 11/24/24 18:09 11/24/24 18:09 Labs: Lab Results 11/24/24 11/24/24 Range/Units 17:58 18:09 WBC 9.7 (4.5-10.0) K/mm3 RBC 3.33 L (4.2-5.4) M/mm3 Hgb 9.4 L (12.0-15.0) g/dL Hct 27.3 L (37.0-47.0) % MCV 82.0 (80-100) fl MCH 28.2 (26-34) pg MCHC 34.4 (32-36) g/dl RDW 16.5 H (11.5-14.5) % Plt Count 266 (150-375) k/mm3 MPV 10.1 (7.4-10.4) fl Immature Gran % (Auto) 0.6 H (0-0.5) % Neut % (Auto) 69.4 (45.5-73.1) % Lymph % (Auto) 12.6 L (18.3-44.2) % [place] % (Auto) 8.3 (2.6-8.5) % Eos % (Auto) 8.5 H (0-4.4) % Baso % (Auto) 0.6 (0.2-1.2) % Lymph # (Auto) 1.23 (0.9-3.2) K/mm3 [place] # (Auto) 0.8 H (0.1-0.6) K/mm3 Eos # (Auto) 0.8 H (0-0.3) K/mm3 Baso # (Auto) 0.1 (0.0-0.1) K/mm3 Abs Immat Gran (auto) 0.06 H (0.00-0.031) K/mm3 Absolute Neuts (auto) 6.7 (1.3-6.7) K/mm3 Absolute Nucleated RBC 0.000 (0.0-0.012) K/mm3 Nucleated RBC % 0.0 (0.0-0.2) % Sodium 127 L (137-145) mmol/L Potassium 3.8 (3.4-5.0) mmol/L Chloride 95 L (98-107) mmol/L Carbon Dioxide 22 (22-30) mmol/L Anion Gap 10 (4-12) mmol/L BUN 96 H (7-17) mg/dL Creatinine 5.96 H (0.7-1.0) mg/dL Estim Creat Clear Calc 14 ml/min Estimated GFR 7 L (59 - ) Glucose 321 H (65-110) mg/dL Calcium 9.7 (8.4-10.2) mg/dL Total Bilirubin 0.4 (0.2-1.3) mg/dL AST 29 (14-36) U/L ALT 26 (6-35) U/L Alkaline Phosphatase 107 (38-126) U/L NT-Pro-B Natriuret Pep 964 H (19.9-100) pg/mL Total Protein 7.5 (6.3-8.2) g/dL Albumin 3.8 (3.5-5.1) g/dL Urine Color Yellow (Yellow) Urine Appearance Clear (Clear) Urine pH 5.0 (5.0-9.0) Ur Specific [place] 1.013 (1.001-1.035) Urine Protein 3+ H (Negative) mg/dL Urine Glucose (UA) 3+ H (Negative) mg/dL Urine Ketones Negative (Negative) mg/dL Ur Blood (Man) Trace (Negative) Urine Nitrate Negative (Negative) Urine Bilirubin Negative (Negative) Urine Urobilinogen 0.2 (<2.0) mg/dL Add Ur Microanalysis Reviewed Leukocyte Esterase Rfl Negative (Negative) MASSIEL/UL Urine RBC 0-2 (0-2) /hpf Urine WBC 0-5 (0-3) /hpf Ur Squamous Epith Cells None seen (Few) /hpf Urine Bacteria None seen /hpf Urine Casts 0-2 Imaging Data Attestation: I personally reviewed and interpreted this imaging study as follows: Radiologist's impression: ITS Impressions Chest X-Ray 11/24/24 19:16 IMPRESSION: 1. No acute cardiopulmonary disease. Discharge Plan Discharge Clinical Impression: Acute kidney injury superimposed on stage 5 chronic kidney disease, not on chronic dialysis Patient Disposition: Home Condition: Stable Instructions: Antibiotic Form, Dehydration (ED) Additional Instructions: Stay hydrated at home. Follow-up with Nephrology for further evaluation. Call office tomorrow to discuss upcoming appointment and repeat laboratory testing. Return to the ED for new or worsening symptoms, severe dizziness or lightheadedness, passing out, not urinating, fevers, shortness breath, or any other symptoms of concern. Patient Language: Irish Prescriptions: No Action insulin glargine [Lantus U-100 Insulin] 100 unit/mL solution 35 unit subcut BID azithromycin 250 mg tablet 250 mg PO DAILY (DME) insulin syringe-needle U-100 1 mL 31 gauge x 5/16 syringe MISCELLANEOUS Soaanz 40 mg tablet 40 mg PO DAILY hydrocodone-acetaminophen 5-325 mg tablet 1 tablet PO Q4H PRN (Reason: pain) Qty: 10 0RF ascorbic acid (vitamin C) [Fruit C-500] 500 mg tablet,chewable 500 mg PO DAILY ferrous sulfate 325 mg (65 mg iron) tablet 325 mg PO DAILY carvedilol 25 mg tablet 25 mg PO Q12H amlodipine 10 mg tablet 10 mg PO HS folic acid 1 mg tablet 1 mg PO DAILY Jardiance 25 mg tablet 25 mg PO DAILY ergocalciferol (vitamin D2) [Vitamin D2] 1,250 mcg (50,000 unit) capsule 1,250 mcg PO WEEKLY Rx Instructions: friday insulin lispro 100 unit/mL insulin pen 15 unit SUBCUT AC Follow-up/Referrals: Marcello William MD [Physician, Nephrology] Referral Note: NEPHROLOGY PHYSICIAN,COST ACCOUNTING MANAGER [Primary Care Provider, Internal Medicine] Time of Disposition: 21:54
[2024-11-24 19:00] LABS: NT Pro B Type Natriuretic Pept 964 pg/mL (19.9-100)
[2024-11-24 19:28] LABS: Add Urine Microscopic? YES; Appearance Urine Clear (Clear); Glucose Urine UA 3+ mg/dL (Negative); Leukocyte Esterase Ur Negative LEU/UL (Negative); Need Manual Microscopic Reviewed; Nitrate Urine Negative (Negative); Non Pathogenic Casts 0-2; Specific Grav Ur 1.013 (1.001-1.035)
[2024-11-24 19:47] VITALS: BP 167/79; PULSE 73; RESP 16; O2SAT 99
[2024-11-24] MEDS: SODIUM CHLORIDE 0.9% IV 1,000 ML 999 ML IV CONT (19:47)
[2024-11-24 22:05] VITALS: BP 157/74; PULSE 80; RESP 16; O2SAT 99
== END 2024-11-24 22:06 | disposition home or self-care (01) ==
PROVIDERS: Emergency Provider Physician Assistant
DX: N17.9 Acute kidney failure, unspecified (principal); I12.0 Hypertensive chronic kidney disease with stage 5 chronic kidney disease or end stage renal disease; N18.5 Chronic kidney disease, stage 5; E11.22 Type 2 diabetes mellitus with diabetic chronic kidney disease; E66.01 Morbid (severe) obesity due to excess calories; Z68.43 Body mass index [BMI] 50.0-59.9, adult; D64.9 Anemia, unspecified; G47.33 Obstructive sleep apnea (adult) (pediatric); Z87.01 Personal history of pneumonia (recurrent); Z79.4 Long term (current) use of insulin; Z79.84 Long term (current) use of oral hypoglycemic drugs; Z79.899 Other long term (current) drug therapy
CPT/HCPCS: 36415; 71046; 80053; 81001; 83880; 85025; 96360; 99283; J7030

== ENCOUNTER 2024-12-20 15:51 | Outpatient (CLI) | payer OTHER, SELFPAY ==
--- OUTSIDE RECORDS SUMMARY | 2023-06-23 10:45 | XMS_ITS ---
Author Organization [facility] Address [address] [place] [id number] Care Team Providers Care Tubing Assembler Name Role Phone Kelvin MEMBRENO, Andres Primary Care Provider Rudy Moses Unavailable [phone] ALLERGIES Allergen (clinical drug ingredient) Drug/Non Drug Allergy documented on EMR Reaction Allergy Type Onset Date Status cephalexin Cephalexin Unknown Drug Allergy Activ e Morphine Sulfate Unknown Drug Allergy Active Floxin Otic Unknown Drug Allergy Activ e meperidine Demerol Unknown Drug Allergy Active ciprofloxacin Cipro Unknown Drug Allergy Act reynaldo REASON FOR VISIT AMMON, DM Type II MEDICATIONS Medication SIG (Take, Route, Frequency, Duration) Notes Start Date End Date Status Fluconazole 150 MG as directed Orally Unknown Irbesartan 300 MG 1 tablet Orally Once a day for 30 day(s) Unknown diazePAM 10 MG 1 tablet as needed Orally three times a day Unknown Carvedilol 25 MG 1 tablet with food Orally Twice a day Unknown amLODIPine Besylate 10 MG 1 tablet Orally Once a day for 30 day(s) Unknown Jardiance 25 MG 1 tablet Orally Once a day for 30 day(s) Unknown Veltassa 8.4 GM 1 packet dissolved i n water. Take other medications at least 3 hours before or 3 hours after this medication Orally Once a day for 30 day(s) Unknown Vitamin D (Ergocalciferol) 88859 UNIT 1 capsule Orally Once a week Unknown Vitamin C 500 MG as directed Orally Unknown Kerendia 10 MG 1 tablet Orally Once a day for 30 day(s) Unknown Iron (Ferrous Sulfate) 325 (65 Fe) MG 1 tablet Orally Once a day Unknown Folic Acid 400 MCG 1 tablet Orally Once a day for 30 day(s) Unknown Aspirin 81 81 MG 1 tablet Orally Once a day for 30 day(s) Unknown Torsemide 10 MG 1 tablet Orally Once a day for 90 days Active Ferrous Sulfate 325 (65 Fe) MG 1 tablet Orally two times a day for 90 days Active Ozempic (0.25 or 0.5 MG/DOSE) 2 MG/3ML as directed Subcutaneous once a week LAST DOSE 2 WEEKS AGO Unknown Vitamin B-12 1000 MCG 1 tablet Orally On ce a day for 30 day(s) Unknown SOCIAL HISTORY Tobacco Use: Social History Observation Description Date Details (start date - stop date) Former Smoker NA - NA Sex Assigned At : Social History Observation Description Sex Assigned At Unknown Tobacco Use/Smoking Question Answer Notes You are a former smoker Encounters Encounter Location Date Provider Diagnosis [facility]-[address] [phone] 06/23/2023 Rudy Veloz Acute kidney failure , unspecified N17.9 ; CHRONIC KIDNEY DISEASE STAGE 3 UNSPECIFIED N18.30 ; Essential (primary) hypertension I10 ; Type 2 diabetes mellitus with diabetic nephropathy E11.21 ; Type 2 diabetes mellitus with diabetic neuropathy, unspecified E11.40 ; Type 2 diabetes mellitus with unspecified diabetic retinopathy with macular edema E11.311 ; Obesity, unspecified E66.9 ; Vitamin D deficiency, unspecified E55.9 ; Iron deficiency anemia, unspecified D50.9 and Edema, unspecified R60.9 ASSESSMENTS Encounter Date Diagnosis Assessment Notes Treatment Notes Treatment Clinical Notes Section Notes 06/23/2023 Acute kidney failure, unspecified (ICD-10 - N17.9) PT appears to have ckd3 ,current creat at baseline.,creat worse since 04/2022.BP controlled.ammon improved..Pt had been on ozempic which now has been dc'd.Pt has questioNs re Ozempic,pt advised to see public health aides teacher re Ozempic and obesity/DM. Clinically appears euvlemic ,except for trace edema of le.Anemia noted,pt reports h/o iron deficiency.low vit d level noted.UA : + for 3+ protein/2+ blood.Nephrotic range proteinuria noted..High cholesterol level noted. IFX studies neg Lytes noted k high5.3l,with low hco3 .bp controlled. Renal us ;small left kidney,rt kidney nl size 06/23/2023 CHRONIC KIDNEY DISEASE STAGE 3 UNSPECIFIED (ICD-10 - N18.30) low k diet PT appears to have ckd3 ,current creat at baseline.,creat worse since 04/2022.BP controlled.ammon improved..Pt had been on ozempic which now has been dc'd.Pt has questioNs re Ozempic,pt advised to see public health aides teacher re Ozempic and obesity/DM. Clinically appears euvlemic ,except for trace edema of le.Anemia noted,pt reports h/o iron deficiency.low vit d level noted.UA : + for 3+ protein/2+ blood.Nephrotic range proteinuria noted..High cholesterol level noted. IFX studies neg Lytes noted k high5.3l,with low hco3 .bp controlled. Renal us ;small left kidney,rt kidney nl size 06/23/2023 Essential (primary) hypertension (ICD-10 - I10) PT appears to have ckd3 ,current creat at baseline.,creat worse since 04/2022.BP controlled.ammon improved..Pt had been on ozempic which now has been dc'd.Pt has questioNs re Ozempic,pt advised to see public health aides teacher re Ozempic and obesity/DM. Clinically appears euvlemic ,except for trace edema of le.Anemia noted,pt reports h/o iron deficiency.low vit d level noted.UA : + for 3+ protein/2+ blood.Nephrotic range proteinuria noted..High cholesterol level noted. IFX studies neg Lytes noted k high5.3l,with low hco3 .bp controlled. Renal us ;small left kidney,rt kidney nl size 06/23/2023 Type 2 diabetes mellitus with diabetic nephropathy (ICD-10 - E11.21) cont arb therapy.lindsey holden PT appears to have ckd3 ,current creat at baseline.,creat worse since 04/2022.BP controlled.ammon improved..Pt had been on ozempic which now has been dc'd.Pt has questioNs re Ozempic,pt advised to see public health aides teacher re Ozempic and obesity/DM. Clinically appears euvlemic ,except for trace edema of le.Anemia noted,pt reports h/o iron deficiency.low vit d level noted.UA : + for 3+ protein/2+ blood.Nephrotic range proteinuria noted..High cholesterol level noted. IFX studies neg Lytes noted k high5.3l,with low hco3 .bp controlled. Renal us ;small left kidney,rt kidney nl size 06/23/2023 Type 2 diabetes mellitus with diabetic neuropathy, unspecified (ICD-10 - E11.40) PT appears to have ckd3 ,current creat at baseline.,creat worse since 04/2022.BP controlled.ammon improved..Pt had been on ozempic which now has been dc'd.Pt has questioNs re Ozempic,pt advised to see public health aides teacher re Ozempic and obesity/DM. Clinically appears euvlemic ,except for trace edema of le.Anemia noted,pt reports h/o iron deficiency.low vit d level noted.UA : + for 3+ protein/2+ blood.Nephrotic range proteinuria noted..High cholesterol level noted. IFX studies neg Lytes noted k high5.3l,with low hco3 .bp controlled. Renal us ;small left kidney,rt kidney nl size 06/23/2023 Type 2 diabetes mellitus with unspecified diabetic retinopathy with macular edema (ICD-10 - E11.311) cont with irbesaratan/j ardiance Pt not a candidate for Karrendia now since k level has been high . PT appears to have ckd3 ,current creat at baseline.,creat worse since 04/2022.BP controlled.ammon improved..Pt had been on ozempic which now has been dc'd.Pt has questioNs re Ozempic,pt advised to see public health aides teacher re Ozempic and obesity/DM. Clinically appears euvlemic ,except for trace edema of le.Anemia noted,pt reports h/o iron deficiency.low vit d level noted.UA : + for 3+ protein/2+ blood.Nephrotic range proteinuria noted..High cholesterol level noted. IFX studies neg Lytes noted k high5.3l,with low hco3 .bp controlled. Renal us ;small left kidney,rt kidney nl size 06/23/2023 Obesity, unspecified (ICD-10 - E66.9) work on wt reduction PT appears to have ckd3 ,current creat at baseline.,creat worse since 04/2022.BP controlled.ammon improved..Pt had been on ozempic which now has been dc'd.Pt has questioNs re Ozempic,pt advised to see public health aides teacher re Ozempic and obesity/DM. Clinically appears euvlemic ,except for trace edema of le.Anemia noted,pt reports h/o iron deficiency.low vit d level noted.UA : + for 3+ protein/2+ blood.Nephrotic range proteinuria noted..High cholesterol level noted. IFX studies neg Lytes noted k high5.3l,with low hco3 .bp controlled. Renal us ;small left kidney,rt kidney nl size 06/23/2023 Vitamin D deficiency, unspecified (ICD-10 - E55.9) cont with vit supplement PT appears to have ckd3 ,current creat at baseline.,creat worse since 04/2022.BP controlled.ammon improved..Pt had been on ozempic which now has been dc'd.Pt has questioNs re Ozempic,pt advised to see public health aides teacher re Ozempic and obesity/DM. Clinically appears euvlemic ,except for trace edema of le.Anemia noted,pt reports h/o iron deficiency.low vit d level noted.UA : + for 3+ protein/2+ blood.Nephrotic range proteinuria noted..High cholesterol level noted. IFX studies neg Lytes noted k high5.3l,with low hco3 .bp controlled. Renal us ;small left kidney,rt kidney nl size 06/23/2023 Iron deficiency anemia, unspecified (ICD-10 - D50.9) Add feso4 325 mg bid PT appears to have ckd3 ,current creat at baseline.,creat worse since 04/2022.BP controlled.ammon improved..Pt had been on ozempic which now has been dc'd.Pt has questioNs re Ozempic,pt advised to see public health aides teacher re Ozempic and obesity/DM. Clinically appears euvlemic ,except for trace edema of le.Anemia noted,pt reports h/o iron deficiency.low vit d level noted.UA : + for 3+ protein/2+ blood.Nephrotic range proteinuria noted..High cholesterol level noted. IFX studies neg Lytes noted k high5.3l,with low hco3 .bp controlled. Renal us ;small left kidney,rt kidney nl size 06/23/2023 Edema, unspecified (ICD-10 - R60.9) increase torsemide 10mg daily Diuretic will aslo improve high k level. PT appears to have ckd3 ,current creat at baseline.,creat worse since 04/2022.BP controlled.ammon improved..Pt had been on ozempic which now has been dc'd.Pt has questioNs re Ozempic,pt advised to see public health aides teacher re Ozempic and obesity/DM. Clinically appears euvlemic ,except for trace edema of le.Anemia noted,pt reports h/o iron deficiency.low vit d level noted.UA : + for 3+ protein/2+ blood.Nephrotic range proteinuria noted..High cholesterol level noted. IFX studies neg Lytes noted k high5.3l,with low hco3 .bp controlled. Renal us ;small left kidney,rt kidney nl size PLAN OF TREATMENT Medication Medication Name Sig Start Date Stop Date Notes Torsemide 10 MG 1 tablet Orally Once a day for 90 days Ferrous Sulfate 325 (65 Fe) MG 1 tablet Orally two times a day for 90 days Treatment Notes Assessment Notes CHRONIC KIDNEY DISEASE STAGE 3 UNSPECIFI ED low k diet Type 2 diabetes mellitus wit h diabetic nephropathy cont arb therapy.jardiance Type 2 diabetes mellitus wit h unspecified diabetic retinopathy with macular edema cont with irbesaratan/jardiance Pt not a candidate for Karrendia now since k level has been high . Obesity, unspecified work on wt reductio n Vitamin D deficiency, unspecified cont w ith vit supplement Iron deficiency anemia, unspecified Add feso4 325 mg bid Edema, unspecified increase torsemide 10mg daily Diuretic will aslo improve high k level. Progress Notes * Examination Category Sub-Category Detail Notes Category Not es Physical Examination GENERAL APPEARANCE: in no acute d istress HEAD: normocephalic EYES: sclera non-icteric NECK/THYROID: no jugular venous di stention HEART: S1, S2 normal LUNGS: clear to auscultatio n bilaterally ABDOMEN: soft, nontender, non distended NEUROLOGIC: alert and oriented, grossly nonfocal SKIN: no rashes, warm and dry EXTREMITIES: no edema ORAL CAVITY: mucosa moist LAB SUMMARY: ///// [id number] Creat21.91.81.61.72 [id number] K5.44.64.94.75.35.2 [id number] Arehpcs41.310.410.48.99.69.4 PO4 4.55.4 Albumin 2.833.1 [id number] EGFR [id number] Hgb8.5 8.49.19.8 Hct26.6 26.127.429.4 WBC9.9 119.48 [id number] Vit D 22.2 20.4 Iron 61 67 TIBC 372 % Sat 18 Ferritin 12 12 CHOL 213 TRIG 207 HDL 60 LDL 112 HbA1C 9.7 10 RU Creat 65.3 mg/dl RU Protein 312.5 mg/dl Protein/Creat ratio 4786 mg/g History and Physical Notes * HPI (History of Present Illness) Category Sub-Category Detail Notes Category Not es Brief summary Patient with 47 yo here for f/u of renal consult sec to abnl blood test for kidneys. Pt has h/o DM/HTN .DM present for last 13 yrs.Per pt since 03/2022 pt has developed eye problems,has diabetic retinopathy.+h/o neuropathy.. HTN present for many yrs. No problem with urination.no blood in urine.Pt stopped Ibuprofen recently ,has taken regularly for last 1 yr. Pt has taken Ozempic for last 5-6 months,stopped recently. Pt states automotive refinisher started her on Kerrendia aling with Veltassa. Presenting symptoms Patient reported As above.
--- OUTSIDE RECORDS SUMMARY | 2023-06-24 11:15 | XMS_ITS ---
Author Organization [facility] Address [address] [place] [phone] Care Team Providers Care Resource Specialist Name Role Phone Kelvin MEMBRENO, Andres Primary Care Provider Rudy Moses Unavailable [phone] REASON FOR VISIT NO SHOW/RESCHEDULED MULTIPLE APPTS Encounters Encounter Location Date Provider Diagnosis [facility] [address] [id number] 06/24/2023 Rudy Veloz PLAN OF TREATMENT No Information
--- OUTSIDE RECORDS SUMMARY | 2024-12-09 10:15 | XMS_ITS | Continuity of Care Document ---
Author Organization [email or web address] Address [address] [place] [address] Phone Care Team Providers Care Body Presser Name Role Phone Karan May MD Unavailable Unavailable Allergies, Adverse Reactions, Alerts Substance Reaction Status Criticality CIPROFLOXACIN HCL RashRash Active No Informa tion ciprofloxacin RashRash Active No Information morphine HivesHives Active No Information MEPERIDINE HCL Low blood pressure Active No Info rmation cephalexin RashRash Active No Information Medications Medication Instructions Dosage Effective Dates (start - stop) Status Comments torsemide 5 mg tablet take 2 tablet by o ral route every day 10 MG - Active Jardiance 25 mg tablet take 1 tablet by oral route every day in the morning 25 MG - Active metolazone 5 mg tablet take 1 tablet by oral route every other day - Active Vitamin D2 1,250 mcg (50,000 unit) capsule take 1 capsule by oral route 1 times every week - Active Lantus U-100 Insulin 100 unit/mL subcutaneous solution Inject 40 Units 3x daily - Active folic acid 1 mg tablet take 1 tablet by oral route every day 1 MG - Active carvedilol 25 mg tablet take 1 tablet by oral route 2 times every day with food 25 MG - Active amlodipine 10 mg tablet take 1 tablet by oral route every day 10 MG - Active Humalog U-100 Insulin 100 unit/mL subcutaneous solution inject 18 units 3x daily cutaneous route per prescriber's instructions. Insulin dosing requires individualization. - Active Tylenol Arthritis Pain 650 mg tablet,extended release take 1 tablet by mouth once daily - Active Icy Hot 30 %-10 % topical cream - Active Procedures Procedure Date OFFICE [id number] BODY MASS INDEX DOCD SYST BP GE 130 - 139MM HG DIAST BP 80-89 MM HG Advance Directives Directive Yes / No Effective Date File Name No Information Encounters Encounter Description Practice Location Reason(s) For Visit Diagnoses Date Provider Providers Copied on Encounter OFFICE [id number], [address], [place], [place], [id number], [place] tel:[phone] [facility] Anemia (chief complaint) Rectal bleeding Yadira Russo. [address], [address], [place], [place], [address], [place]. tel:[phone] Referring Provider: Andres Warren, [address] [place] [address], [address]. tel:[phone] Family History Family Member Type Diagnosis Age At Onset Maternal grandmother Problem Cancer, colon Payers Payer name Insurance type Covered constitution party ID Authoriza tironi(s) UMR 6 CI [id number] Social History Type Description Quantity Date Captured Comments Alcohol Use Details No Caffeine Use Details No Tobacco Use Status Ex-smoker Smoking Status Former smoker Non-Smoking Tobacco Use Details : No Details Available : No Details Available Sex Female Sexual Orientation Straight or heterosexual Gender Identity Female Vital Signs Date / Time: Height Weight BMI Pulse Rate Blood Pressure Temperature Respiratory Rate Body Surface Area Head Circumference Head Circ. Percentile Wt./Watson. Percentile BMI percentile Pulse Ox Inhaled Ox 3:21 PM 64.00 in 131.542 kg (290.00 lbs) 49.7 8 kg/m eter (2) 74 /min 135/81 mm[Hg] 99 % Chief Complaint And Reason For Visit From encounter dated '12/09/2024 15:15'. Anemia (chief complaint) Reason For Referral Reason For Referral No Information Plan Of Treatment Date Type Action Status Referral Ordered: COLONOSCOPY, FLEXIBLE, DIAGNOSTIC W/ COLLECTION OF SPECIMEN ordered Appointment Joann Tavares BOOKED Appointment Joann Tavares BOOKED History Of Present Illness Encounter Date Complaint History Of Prese nt Illness Comments: 11/2023 was transfused- admitted for PNA. Eventually had sepsis and resp failure. Has had issues with vaginal bleeding too. July 2024 had uterine ablation, Hgb was 10.3. About 1 month later started having fatigue, cramps, SOB. Eventually got labs in September- Hgb 5.8. 2 units of blood went up to 8.1. Then went down to 7.1 in October 22, then needed another transfusion and went to 10.3. Hgb 8.1 as of 12/08/24. Hematology thinks CKD is the cause. Has been seeing blood or maroon color in her stool. Anemia Functional Status Date Functional Assessmen t No Information Instructions Date Instruction Additional Infor julian 11/2023 was tr ansfused- admitted for PNA. Eventually had sepsis and resp failure. Has had issues with vaginal bleeding too. July 2024 had uterine ablation, Hgb was 10.3. About 1 month later started having fatigue, cramps, SOB. Eventually got labs in September- Hgb 5.8. 2 units of blood went up to 8.1. Then went down to 7.1 in October 22, then needed another transfusion and went to 10.3. Hgb 8.1 as of 12/08/24. Hematology thinks CKD is the cause. Has been seeing blood or maroon color in her stool.Has had rectal bleeding from anal fissure in the past.Has CKD5 with BUN of 98Will need colonoscopy. Ideally needs EGD as well but I don't think she can tolerate this. Will discuss further if cscope does not explain anemiaHas severe anxiety related to anesthesia so she would like to do the colonoscopy awake. Advised that this isn't the best idea since it could be uncomfortable based on her body habitus but she understands this and wants to proceed without anesthesia Related to Rectal bleeding Assessments Type Assessment Date assessment Rectal bleeding Patient Care Teams Name Effective Dates (start - stop) Status Members No Information
--- OUTSIDE RECORDS SUMMARY | 2024-12-20 16:11 | XMS_ITS | Clinical Summary ---
Author Organization [facility] Address [address] [place] [address] Care Team Providers Care Treatment Plant Mechanic Name Role Phone Matias Warren MD Primary Care Provider [phone] Allergies Active Allergy Reactions Criticality Noted Date [...] Encounters Date Type Department Care Team Description 12/06/[address] [facility] Medicine Surgery [address] 1 [place] [address] Thad Holly MD 12/02/[address] [facility] Medicine Surgery [address] 1 [place] [address] Thad Holly MD 12/02/[address] [facility] Medicine Vascular Surgery [address] [facility] [address] [place] [address] Thad Holly MD Chronic kidney disease (CKD) stage G5/A1, glomerular filtration rate (GFR) less than or equal to 15 mL/min/1.73 square meter and albuminuria creatinine ratio less than 30 mg/g (HCC) (Primary Dx) 10/02/2024 Results Follow-Up [facility] at [address] [place] [address] Arben Westbrook NP XR Chest Pa Lateral 2 Views 10/01/2024 3:59 PM CDT - 10/01/2024 11:59 PM CDT Hospital Encounter [facility] Radiology - Outpatient Center at [address] [address] Bronchitis Discharge Disposition: Discharge to home or self care 10/01/2024 3:15 PM CDT Office Visit [facility] Medical [facility] Con[facility]ient Care at [address] [place] [address] Maria Esther Kraft NP Bronchitis (Primary Dx); Acute cough; Fever, unspecified fever cause from Last 3 Months Surgical History Surgery Date Site/Laterality Comments OTHER SURGICAL HISTORY Panic attack SECTION TUBAL LIGATION Medical History Medical History Date Comments Diabetes mellitus Diabetes melli tus Hypertension Family History Medical History Relation Name [...] drink = 0.6 oz pur e alcohol) [facility] Utilities Answer Date Recorded In [...] often do you attend chur ch or yazidism services? Never 07/23/2023 Do you belong to any clubs o r organizations such as adventism groups, unions, fraternal or athletic groups, or [...] place to sleep or slept in a halfway (including now)? 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 MJ: SISSY Report ID: [id number] Reading Location: [id number] Maria Esther Kraft PIPE COREMAKER IMG XR PROCEDURES Final Re sult * POC Influenza A/B, COVID-19 antigen (10/01/2024 3:40 PM CDT) Pathologist [facility] Influenza A Ag, POC Negative Negative [facility] [place] Influenza B Ag, POC Negative Negative [facility] [place] COVID-19 Ag POC Presumptive Negative Presumptive Negative, Invalid [facility] Nasal 10/01/2024 3:40 PM CDT Maria Esther Kraft PIPE COREMAKER POINT OF CARE TEST ORDERAB LES Final Result [facility] [place] [id number] [address], [facility] * POCT rapid strep A (10/01/2024 3:39 PM CDT) Rapid Strep A, POC Negative Negative Swab 10/01/2024 3:39 PM CDT Maria Esther Kraft PIPE COREMAKER POINT OF CARE TEST ORDERAB LES Final Result * POCT respiratory syncytial virus (10/01/2024 3:35 PM CDT) RSV Rapid Ag Negative Negative, Invalid Nasopharyngeal 10/01/2024 3: 35 PM CDT Maria Esther Kraft PIPE COREMAKER POINT OF CARE TEST ORDERAB LES Final Result from Last 3 Months Insurance [facility] Address: [address] [address] [place] [address] [facility] UHC MEDICARE ADVANTAGE [facility] Advance Directives For more information, please contact: [phone] * Full Code (Latest Code Status on File) Date Activated Date Inactivated Comments 07/23/2023 3:39 PM 07/25/2023 6:34 PM Care Teams Treatment Plant Mechanic Relationship Specialty Start Date End Date Matias Warren MD [address] [place] [address] PCP - General Internal Medicine 07/20/23
--- OUTSIDE RECORDS SUMMARY | 2024-12-20 16:11 | XMS_ITS | Clinical Summary ---
Author Organization [facility] [employer] [facility] [employer] [facility] Address [address] [address] Phone Care Team Providers Care Developer Designer Name Role Phone Matias Warren MD Primary Care Provider [phone] Allergies Active Allergy Reactions Criticality Noted Date [...] time each day Active ergocalciferol 1.25 MG (81310 UT) capsule Take 50,000 Units by mouth [...] 8.6(A) 8.7 - 10.7 mg/dL eGFR Non-Afr South African 25(L) Hemoglobin A1C 8.5(A) 4.0 - 6.0 Glucose, UA 4+ mg/dL Bilirubin, UA Negative Ketones, UA Negative Urine Specific [place] 1.015 Blood, UA 3+ Randy/ul pH, UA [...] Recently Relevant to Health Maintenance Insurance Medicare [facility] Care Teams Developer Designer Relationship Specialty Start Date End Date Matias Warren MD [address] [place] [address] PCP - General Internal Medicine 07/24/23
--- OUTSIDE RECORDS SUMMARY | 2024-12-20 16:11 | XMS_ITS | Clinical Summary ---
Author Organization [facility] Address [address] [place] [address] Phone Care Team Providers Care Lab Animal Technician Name Role Phone Matias Warren MD Primary Care Provider [phone] Allergies Active Allergy Reactions Criticality Noted Date [...] hyperglycemia, with long-term current use of insulin 40 Units by Subcutaneous route every evening. 15 mL 3 8 Active Insulin Pen Needle (PEN NEEDLES) 32G X 5 MM MiscIndications :Type 2 diabetes mellitus with hyperglycemia, with long-term current use of insulin 4 times a day 400 Each 3 [...] PANEL) (10/15/2018) Blood specimen (specimen) us Too E Nanney PAC CHEMISTRY ORDERABLES Final Re sult from Last 3 Months or Most Recently Relevant to Health Maintenance Insurance MEDICARE [facility] Care Teams Lab Animal Technician Relationship Specialty Start Date End Date Matias Warren MD [address] [place] [address] PCP - General Family Medicine 07/09/23
--- OUTSIDE RECORDS SUMMARY | 2024-12-20 16:12 | XMS_ITS | Encounter Summary ---
Author Organization [facility] [employer] [facility] Address [address] [place] [address] Care Team Providers Care Domestic Maid Name Role Phone Matias Warren MD Primary Care Provider [phone] Reason for Visit * Reason Onset Date Comments labs for appt 12/20/2024 Encounter Details Date Type Department Care Team (Late Contact Info) Description 12/20/2024 Telephone [facility] Oncology and Hematology - [place] [address] [facility] [address] [place] [address] Hector Krishna MD [address] [facility] [address] [place] [address] labs for appt Social History Tobacco Use Types Packs/Day Years [...] as of this encounter Miscellaneous Notes * Telephone Encounter - Margret Mcelroy - 12/20/2024 9:16 AM CDT LVM for patient regarding her labs for her appointment tomorrow. She would need to get those done today for her appointment. documented in this encounter Plan of Treatment Upcoming Encounters Date Type Department Care Team (Late st Contact Info) Description 12/21/2024 1:00 PM CDT Office Visit [facility] Oncology and Hematology - [place] [address] [facility] [address] [place] [address] Hector Krishna MD [address] [facility] [address] [place] [address] documented as of this encounter Visit Diagnoses Not on filedocumented in this encounter Care Teams Domestic Maid Relationship Specialty Start Date End Date Matias Warren MD [address] [place] [phone] PCP - General Family Practice 11/01/24 documented as of this encounter
--- OUTSIDE RECORDS SUMMARY | 2024-12-20 16:12 | XMS_ITS | Clinical Summary ---
Author Organization [facility] Annemarie Jaime Address [address] [place] [address] Care Team Providers Care Nailer Machine Name Role Phone Matias Warren MD Primary Care Provider [phone] Allergies Active Allergy Reactions Criticality Noted Date [...] mouth daily 90 Tablet 5 6:48 PM MOLD RELEASE WORKER 02/18/20 24 Active Insulin Syringe-Needle U-100 (BD Insulin Syringe Ultra-Fine) 1 mL 31 gauge x 5/16 Syringe USE FOR INSULIN INJECTIONS 200 Each 5 3:26 PM MOLD RELEASE WORKER 04/09/19 25 Active ferrous sulfate 325 mg (65 mg iron) tablet Take 1 Tablet (325 mg) by mouth daily. 100 Tablet 5 3:26 PM MOLD RELEASE WORKER 04/09/19 25 Active patiromer calcium sorbitex (Veltassa) [...] daily 30 Packet 11 5 3:26 PM MOLD RELEASE WORKER 04/09/19 25 Active amLODIPine (NORVASC) 10 mg [...] PM CDT 08/24/19 25 Active insulin lispro (HumaLOG,ADMELO G) 100 unit/mL pen syringe INJECT 14 UNITS [...] 2:29 PM CDT 09/24/19 25 Active Insulin Mcalister, Disposable, (BD Ultra-Fine Short Pen Needle) 31 [...] by mouth Oral Daily 60 Tablet 1 5 11:28 AM CDT 11/24/19 25 Active carvediloL (COREG) 25 mg tablet Take 1 Tablet (25 mg) by mouth 2 times daily. 180 Tablet 5 2:12 PM CDT 12/14/19 25 Active diazePAM (VALIUM) 10 mg tablet Take 1 tablet by mouth three times daily as needed for anxiety 84 Tablet 5 2:12 PM CDT 12/14/19 25 Active amoxicillin-cla vulanate (AUGMENTIN) 875-125 mg tablet Take 1 Tablet by mouth every 12 hours for 7 days. 14 Tablet 5 4:58 PM CDT 10/12/19 25 025 Discontinued Active Problems Problem Noted Date Diagnosed Date Chronic anemia 11/10/2024 Iron deficiency anemia due to chronic blood loss 11/10/2024 Encounters Date Type Department Care Team Description 12/20/2024 Telephone [facility] Oncology and Hematology - [place] [address] [place] [address] Hector Krishna MD labs for appt 12/07/2024 Telephone [facility] Oncology and Hematology - [place] [address] [place] [address] Hector Krishna MD Side Effects 11/23/2024 External Device Data STL ABSTRACTION Provider, Abstract 11/17/2024 Telephone [facility] Oncology and Hematology - [place] [address] [place] [address] Maryan Raya MD IV Orders 11/10/2024 4:00 PM CDT Telephone Check Up [facility] Oncology and Hematology - [place] [address] [place] [address] Maryan Raya MD Chronic anemia (Primary Dx); Iron deficiency anemia due to chronic blood loss 11/09/2024 Orders Only [facility] Oncology and Hematology - [place] [address] [place] [address] Hector Krishna MD 11/05/2024 Orders Only [facility] Oncology and Hematology - [place] [address] [place] [address] Hector Krishna MD 11/04/2024 Orders Only [facility] Oncology and Hematology - [place] [address] [place] [address] Hector Krishna MD 11/03/2024 Orders Only [facility] Oncology and Hematology - [place] [address] [place] [address] Hector Krishna MD 11/02/2024 Orders Only [facility] Oncology and Hematology - [place] [address] [place] [address] Hector Krishna MD 11/01/2024 3:00 PM CDT Office Visit [facility] Oncology and Hematology - [place] [address] [place] [address] Hector Krishna MD Chronic anemia (Primary Dx) [...] Description 12/21/2024 1:00 PM CDT Office Visit [facility] Oncology and Hematology - [place] [address] [facility] [address] [place] [address] Hector Krishna MD [address] [facility] [address] [place] [address] Health Maintenance Due Date Last [...] METHYLMALONIC ACID (11/01/2024 10:09 AM CDT) Blood Hector Krishna MD CHEMISTRY ORDERABLES Final Resu lt * CHG SOLUBLE TRANSFERRIN RECEPTOR (11/01/2024 7:44 AM CDT) Hector Krishna MD [facility] - LABORATORY Final Result * ERYTHROPOIETIN LEVEL (11/01/2024 7:33 AM CDT) Blood Hector Krishna MD CHEMISTRY ORDERABLES Final Resu lt from Last 3 Months Insurance RX [employer] (INTERNAL) [facility] RX [employer] RX Member Subscriber Plan / Payer (Ef fective 2024-Present) Name:Joann Tavares Relation to Subscriber:Self Name:Joann Tavares Subscriber ID:Not on file Payer ID:Not on file Type:Not on file Address: [address] [facility] Care Teams Nailer Machine Relationship Specialty Start Date End Date Matias Warren MD [address] [place] [phone] PCP - General Family Practice 11/01/24
--- OUTSIDE RECORDS SUMMARY | 2024-12-20 16:12 | XMS_ITS | Patient Health Record ---
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) Active confirmed Diabetic renal disease (365905429) Problem Type 2 diabetes mellitus with diabetic neuropathy, unspecified (E11.40) Active confirmed Diabetic peripheral neuropathy associated with type 2 diabetes mellitus (0149764404070) Problem 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) Active confirmed 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 (21383673337554) Problem Obesity, unspecified (E66.9) Active confirmed Obesity (805205993) Problem Vitamin D deficiency, unspecified (E55.9) Active confirmed Vitamin D deficiency (99572112) Problem Iron deficiency anemia, unspecified (D50.9) Active confirmed Iron deficiency anemia (08305823) PLAN OF TREATMENT Pending Test Test Name [...] Insured Coverage Start Date Coverage End Date [employer] [address] [place], [place] [id number] Joann Tavares Self - patient is the insured [place] [address] [place] [address] [id number] Joann Tavares Self - patient is the insured [place] [employer] [facility] [address] [address] [place] [id number] Joann Tavares Self - patient is the [...]
--- OUTSIDE RECORDS SUMMARY | 2024-12-20 16:12 | XMS_ITS | Clinical Summary ---
Author Organization [facility] Address [address] [place] [address] Care Team Providers Care Impact Retail Service Merchandiser Name Role Phone Teresita Cortez MD Primary Care Provider [phone] Source Comments [facility],non-owned Affiliates and Associated Physician Practices is amultiple site organization consisting of ambulatory clinics and hospital sitesin [place], [place] and [place]. This disclosure is being madepursuant to the Care Everywhere program and may not contain all information available regarding this patient. Last updated 17.[facility] Allergies Active Allergy Reactions Criticality Noted Date [...] Last Done Comments COLOGUARD (AGES 45-75) - COLON CA SCREENING 1974 COLON MONITORING 1974 COLONOSCOPY [...] VACCINE (1 of 2) 2024 COVID-19 VACCINE (3 - 2024- season) 2024 06/09/2020, 05/12/2020 INFLUENZA VACCINE (#1) 2024 , 12/06/2019, 12/03/2019, Additional history exists HIB VACCINE Aged Out No longer eligi ble based on patient's age to complete this topic HPV VACCINE Aged Out No longer eligi ble based on patient's age to complete this topic MENINGOCOCCAL (Group B) VACCINE SHARED DECISION-MAKING Aged Out No longer eligible based on patient's age to complete this topic MENINGOCOCCAL GROUPS A/C/Y/W VACCINE Aged Out No longer eligible based on patient's age to complete this topic Insurance MEDICAID - OUT OF STATE MEDICARE [facility] SELF PAY NO INSURANCE Member Subscriber Plan / Payer (Ef fective for All Dates) Name:Joann Tavares Member ID:Not on file Relation to Subscriber:Not on file Name:JOANN TAVARES Subscriber ID:Not on file (Home) Address: [facility] [place] [address] [address] Payer ID:Not on file Group ID:Not on file Type:Self Pay Address: [place], [place] Care Teams Impact Retail Service Merchandiser Relationship Specialty Start Date End Date Teresita Cortez MD [address] [place] [address] [address] [place] [phone] PCP - General 05/07/19
[2024-12-20 16:56] LABS: Hematocrit 26.5 % (37.0-47.0); Hemoglobin 9.1 g/dL (12.0-15.0); Immature Granulocyte Percent A 0.5 % (0-0.5); Lymphocytes Absolute Auto 0.98 K/mm3 (0.9-3.2); Mean Corpuscular HGB Conc 34.3 g/dl (32-36); Mean Corpuscular Hemoglobin 29.2 pg (26-34); Mean Corpuscular Volume 84.9 fl (80-100); Nucleated Red Blood Cells Absolute Auto 0.000 K/mm3 (0.0-0.012); Nucleated Red Blood Cells Perc 0.0 % (0.0-0.2); Platelet Count Result 289 k/mm3 (150-375); Red Blood Count 3.12 M/mm3 (4.2-5.4); White Blood Count 11.2 K/mm3 (4.5-10.0)
[2024-12-20 17:08] LABS: Iron 42 ug/dL (37-170)
[2024-12-20 17:10] LABS: Alanine Aminotransferase 22 U/L (6-35); Albumin Level 3.8 g/dL (3.5-5.1); Alkaline Phosphatase 112 U/L (38-126); Anion Gap 12 mmol/L (4-12); Aspartate Amino Transferase 32 U/L (14-36); Bilirubin,Total 0.3 mg/dL (0.2-1.3); Blood Urea Nitrogen 92 mg/dL (7-17); Calcium 10.3 mg/dL (8.4-10.2); Carbon Dioxide 22 mmol/L (22-30); Chloride 95 mmol/L (98-107); Estimated Glomerular Filt Rate 10; Glucose 317 mg/dL (65-110); Potassium 3.8 mmol/L (3.4-5.0); Sodium 129 mmol/L (137-145); Total Protein 7.5 g/dL (6.3-8.2)
[2024-12-20 17:17] LABS: Percent Iron Saturation 13 % (20-50)
[2024-12-20 17:49] LABS: Ferritin 128.00 ng/mL (11.1-264)
[2024-12-20 18:22] LABS: Vitamin B12 739.0 pg/mL (239-931)
== END 2024-12-20 15:52 | disposition home or self-care (01) ==
LOC: ANHLAB 15:53
PROVIDERS: Visit Provider Internal Medicine
DX: D64.9 Anemia, unspecified (principal); D50.0 Iron deficiency anemia secondary to blood loss (chronic)
CPT/HCPCS: 36415; 80053; 82607; 82728; 82746; 83540; 83550; 84238; 85025

== ENCOUNTER 2025-01-21 15:40 | Outpatient (CLI) | payer OTHER, SELFPAY ==
[2025-01-21 16:40] LABS: Albumin Level 3.6 g/dL (3.5-5.1); Anion Gap 12 mmol/L (4-12); Calcium 8.7 mg/dL (8.4-10.2); Carbon Dioxide 21 mmol/L (22-30); Chloride 94 mmol/L (98-107); Estimated Glomerular Filt Rate 10; Glucose 342 mg/dL (65-110); Potassium 3.5 mmol/L (3.4-5.0); Sodium 127 mmol/L (137-145)
[2025-01-21 16:43] LABS: Blood Urea Nitrogen 104 mg/dL (7-17)
[2025-01-21 16:53] LABS: Hepatitis B Surface Antigen Negative (Negative)
[2025-01-21 17:10] LABS: Hepatitis B Surface Anti Res Negative
--- OUTSIDE RECORDS SUMMARY | 2025-01-21 19:54 | XMS_ITS | Clinical Summary ---
Author Organization [facility] [employer] [facility] Address [address] [address] Phone Care Team Providers Care Budget Controller Name Role Phone Matias Warren MD Primary Care Provider [phone] Allergies Active Allergy Reactions Criticality Noted Date [...] time each day Active ergocalciferol 1.25 MG (15433 UT) capsule Take 50,000 Units by mouth [...] 8.6(A) 8.7 - 10.7 mg/dL eGFR Non-Afr [place] 25(L) Hemoglobin A1C 8.5(A) 4.0 - 6.0 Glucose, UA 4+ mg/dL Bilirubin, UA Negative Ketones, UA Negative Urine Specific [place] 1.015 Blood, UA 3+ Randy/ul pH, UA [...] Recently Relevant to Health Maintenance Insurance Medicare [facility] Care Teams Budget Controller Relationship Specialty Start Date End Date Matias Warren MD [address] [place] [address] PCP - General Internal Medicine 07/24/23
--- OUTSIDE RECORDS SUMMARY | 2025-01-21 19:54 | XMS_ITS | Clinical Summary ---
Author Organization [facility] Address [address] [place] [address] Phone Care Team Providers Care Language Translator Name Role Phone Matias Warren MD Primary Care Provider [phone] Allergies Active Allergy Reactions Criticality Noted Date [...] Years Used Date Smoking Tobacco: Former Cigarettes 0 Q uit: 06/12/1997 Smokeless Tobacco: Never Tobacco [...] Diabetes: Nephropathy Screening 10/16/2019 10/15/2018, 02/08/2017, 01/17/2017 Respiratory Syncytial Virus (RSV) Immunization (Adult) (1 - Risk 50-74 years 1-dose series) 2024 Zoster Immunization (1 of 2) 2024 Influenza Immunization (#1) 11/08/202412/09, 12/03/2019, 02/06/2018, Additional history exists SARS-COV-2 Immunization (2024- season) 2024 06/09/2020, 05/12/2020 TdaP Immunization Completed 10/10/2014 DTaP/Tdap/Td Immunization Discontinued [...] Recently Relevant to Health Maintenance Insurance [facility] Care Teams Language Translator Relationship Specialty Start Date End Date Matias Warren MD [address] [place] [id number] PCP - General Family Medicine 07/09/23
--- OUTSIDE RECORDS SUMMARY | 2025-01-21 19:55 | XMS_ITS | Clinical Summary ---
Author Organization [facility] Address [address] [place] [address] Care Team Providers Care Commodity Merchant Name Role Phone Matias Warren MD Primary Care Provider [phone] Allergies Active Allergy Reactions Criticality Noted Date Comments Cephalexin Hives,Rash High 12/21/2009 Other Reaction(s): Unknown Patient received ceftriaxone in May 2024 Ciprofloxacin Hives High 12/21/2009 Other Reaction(s): Unknown Morphine Hives High 12/21/2009 Other Reaction(s): Unknown Medications amLODIPine (NORVASC) 10 mg tablet Take 1 Tablet (10 mg) by mouth daily. 90 Tablet 12/20/2023 12:45 PM CDT 4 Active torsemide (DEMADEX) 10 mg Tablet Take 1 tablet by mouth daily 90 Tablet 04/15/2024 6:48 PM WEB APPLICATION DEV SPECIALIST 4 Active Insulin Syringe-Needle U-100 (BD Insulin Syringe Ultra-Fine) 1 mL 31 gauge x 5/16 Syringe USE FOR INSULIN INJECTIONS 200 Each 04/12/2024 3:26 PM WEB APPLICATION DEV SPECIALIST 5 Active ferrous sulfate 325 mg (65 mg iron) tablet Take 1 Tablet (325 mg) by mouth daily. 100 Tablet 04/12/2024 3:26 PM WEB APPLICATION DEV SPECIALIST 5 Active patiromer calcium sorbitex (Veltassa) 25.2 gram Powder in Packet powder Drink 1 packet dissolved in water once a day. Mix with 1/3 cup of water and drink daily. 30 Packet 11 5 Active patiromer calcium sorbitex (Veltassa) 16.8 gram Powder in Packet powder Drink 1 packet dissolved in water once a day. Mix with 1/3 cup of water and drink daily 30 Packet 11 04/12/2024 3:26 PM WEB APPLICATION DEV SPECIALIST 5 Active amLODIPine (NORVASC) 10 mg tablet Take 1 Tablet (10 mg) by mouth daily. 90 Tablet 1 01/03/2025 5:11 PM CDT 5 Active carvediloL (COREG) 25 mg tablet Take 1 Tablet (25 mg) by mouth 2 times daily. 180 Tablet 06/28/2024 6:49 PM CDT 5 Active diazePAM (VALIUM) 10 mg tablet Take 1 Tablet (10 mg) by mouth 3 times daily as needed for anxiety. 84 Tablet 08/23/2024 7:32 PM CDT 5 Active insulin lispro (HumaLOG,ADMELOG ) 100 unit/mL pen syringe INJECT 14 UNITS WITH MEALS 15 mL 2 08/23/2024 7:32 PM CDT 5 Active diazePAM (VALIUM) 10 mg tablet Take 1 tablet by mouth three times daily as needed for anxiety 84 Tablet 09/20/2024 7:11 PM CDT 5 Active folic acid (FOLVITE) 1 mg tablet Take 1 Tablet (1 mg) by mouth daily. 90 Tablet 09/25/2024 2:29 PM CDT 5 Active Insulin [place], Disposable, (BD Ultra-Fine Short Pen Needle) 31 gauge x 5/16 Needle Use with Insulin pen. 100 Each 3 11/22/2024 6:08 PM CDT 5 Active insulin glargine (Lantus Solostar U-100 Insulin) 100 unit/mL pen syringe Inject 60 units under the skin once daily 15 mL 2 10/15/2024 6:00 PM CDT 5 Active Blood-Glucose Sensor (Dexcom G6 Sensor) Device CHANGE DIRECTED. 3 Each 10/18/2024 3:13 PM CDT 5 Active Blood-Glucose Transmitter (Dexcom G6 Transmitter) Device CHANGE DIRECTED. 1 Each 10/18/2024 3:13 PM CDT 5 Active metOLazone (ZAROXOLYN) 2.5 mg tablet Take 1 Tablet (2.5 mg) by mouth 1 time daily as needed for swelling. 90 Tablet 11/10/2024 5:24 PM CDT Active ergocalciferol (Vitamin D2) 50,000 unit capsule Take 1 Capsule (50,000 Units) by mouth every 7 days. 13 Capsule 11/03/2024 5:02 PM CDT Active torsemide (DEMADEX) 20 mg tablet Take 1 Tablet (20 mg) by mouth daily with 10 mg to equal 30 mg total daily dose. 30 Tablet 11/03/2024 5:02 PM CDT Active empagliflozin (JARDIANCE) 25 mg tablet Take 1 Tablet (25 mg) by mouth daily in the morning. 90 Tablet 11/10/2024 5:24 PM CDT 5 Active diazePAM (VALIUM) 10 mg tablet Take 1 Tablet (10 mg) by mouth 3 times daily as needed FOR ANXIETY. 84 Tablet 11/15/2024 2:12 PM CDT 5 Active torsemide (DEMADEX) 20 mg tablet Take 2 tablets by mouth Daily 60 Tablet 1 01/03/2025 5:11 PM CDT Active carvediloL (COREG) 25 mg tablet Take 1 Tablet (25 mg) by mouth 2 times daily. 180 Tablet 12/13/2024 2:12 PM CDT 5 Active diazePAM (VALIUM) 10 mg tablet Take 1 tablet by mouth three times daily as needed for anxiety 84 Tablet 12/13/2024 2:12 PM CDT Active doxycycline hyclate (VIBRAMYCIN) 100 mg capsule Take 1 Capsule (100 mg) by mouth 2 times daily for 14 days. 28 Capsule 01/08/2025 4:06 PM CDT 5 01/23/20 25 Active diazePAM (VALIUM) 10 mg tablet Take 1 Tablet (10 mg) by mouth 3 times daily as needed for anxiety. 84 Tablet 01/10/2025 4:51 PM WEB APPLICATION DEV SPECIALIST 5 Active Active Problems Problem Noted Date Diagnosed Date Chronic anemia 11/10/2024 Iron deficiency anemia due to chronic blood loss 11/10/2024 Encounters Date Type Department Care Team Description 12/28/2024 External Device Data STL ABSTRACTION Provider, Abstract 12/20/2024 Telephone [facility] [place] [address] [place] [id number] Hector Krishna MD labs for appt 12/07/2024 Telephone [facility] [place] [address] [place] [phone] Hector Krishna MD Side Effects 11/23/2024 External Device Data STL ABSTRACTION Provider, Abstract 11/17/2024 Telephone [facility] [place] [address] Maryan Raya MD IV Orders 11/10/2024 4:00 PM CDT Telephone Check Up [facility] [place] [address] [place] [phone] Maryan Raya MD Chronic anemia (Primary Dx); Iron deficiency anemia due to chronic blood loss 11/09/2024 Orders Only [facility] [place] [address] Hector Krishna MD 11/05/2024 Orders Only [facility] [place] [address] [place] [phone] Hector Krishna MD 11/04/2024 Orders Only [facility] [place] [address] [place] [phone] Hector Krishna MD 11/03/2024 Orders Only [facility] [place] [address] [place] [address] Hector Krishna MD 11/02/2024 Orders Only [facility] [place] [address] [place] [address] Hector Krishna MD 11/01/2024 3:00 PM CDT Office Visit [facility] [place] [address] [place] [address] Hector Krishna MD Chronic anemia (Primary Dx) from Last 3 Months Family History Medical [...] 11/01/2024 3:16 PM CDT Plan of Treatment Health Maintenance [...] ID:Not on file Type:Not on file Address: [address] [facility] Care Teams Commodity Merchant Relationship Specialty Start Date End Date Matias Warren MD [address] [place] [phone] PCP - General Family Practice 11/01/24
--- OUTSIDE RECORDS SUMMARY | 2025-01-21 19:55 | XMS_ITS | Patient Health Record ---
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 confirmed Diabetic renal disease (142292630) Problem Type 2 diabetes mellitus with diabetic neuropathy, unspecified (E11.40) Active confirmed Diabetic peripheral neuropathy associated with type 2 diabetes mellitus (7888356306944) Problem 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) Active confirmed 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 (92617041243243) Problem Obesity, unspecified (E66.9) Active confirmed Obesity (090895715) Problem Vitamin D deficiency, unspecified (E55.9) Active confirmed Vitamin D deficiency (16947548) Problem Iron deficiency anemia, unspecified (D50.9) Active confirmed Iron deficiency anemia (12097532) PLAN OF TREATMENT Pending Test Test Name [...] Insured Coverage Start Date Coverage End Date [employer] [address] [place], [place] [id number] Joann Tavares Self - patient is the insured [place] [address] [place] [address] [id number] Joann Tavares Self - patient is the insured [facility] [address] [address] [place] [id number] Joann Tavares Self - patient is the [...]
--- OUTSIDE RECORDS SUMMARY | 2025-01-21 19:55 | XMS_ITS | Clinical Summary ---
Author Organization [facility] Address [address] [place] [address] Care Team Providers Care Tellers Supervisor Name Role Phone Matias Warren MD Primary Care Provider [phone] Allergies Active Allergy Reactions Criticality Noted Date [...] Active Additional Information Patient not taking.Reported on 01/12/2025 metOLazone (ZAROXOLYN) 2.5 mg tablet Take 2 [...] Encounters Date Type Department Care Team Description 01/13/2025 Telephone [facility] Medicine Vascular Surgery [facility] Office Building [address] [place] [phone] Mayra Holly MD 01/12/2025 3:00 PM WAREHOUSE ORDER FILLER Office Visit [facility] Medicine Surgery [address] [place] [address] 8th [place] [address] [place] [phone] Mayra Holly MD Chronic kidney disease (CKD) stage G5/A1, glomerular filtration rate (GFR) less than or equal to 15 mL/min/1.73 square meter and albuminuria creatinine ratio less than 30 mg/g (HCC) (Primary Dx) 01/12/2025 1:45 PM WAREHOUSE ORDER FILLER Ancillary Procedure [facility] Medicine Vascular Lab at the [address] 8th [place] [address] [place] [address] Chronic kidney disease (CKD) stage G5/A1, glomerular filtration rate (GFR) less than or equal to 15 mL/min/1.73 square meter and albuminuria creatinine ratio less than 30 mg/g (HCC) 12/06/2024 Telephone [facility] Medicine Surgery [address] [place] [address] Floor 1 [place] [address] Mayra Holly MD 12/02/2024 Telephone [facility] Medicine Surgery [address] [place] [address] Floor 1 [place] [address] Mayra Holly MD 12/02/2024 Orders Only [facility] Vascular Surgery [address] [place] [address] Office Building [address] [place] [phone] Mayra Holly MD Chronic kidney disease (CKD) stage G5/A1, glomerular filtration rate (GFR) less than or equal to 15 mL/min/1.73 square meter and albuminuria creatinine ratio less than 30 mg/g (HCC) (Primary Dx) from Last 3 Months Surgical History Surgery [...] drink = 0.6 oz pur e alcohol) [facility] Utilities Answer Date Recorded In the past 12 months has e electric, gas, oil, or water [employer] threatened to shut off services in your [...] often do you attend chur ch or anglican services? Never 07/23/2023 Do you belong to any clubs o r organizations such as hoahaoism groups, unions, fraternal or athletic groups, or [...] place to sleep or slept in a penitentiary (including now)? No 07/23/2023 Personal Safety Answer [...] on file Legal Sex Female 11:36 AM WAREHOUSE ORDER FILLER Gender Identity Not on file Sexual Orientation Not on file Last Filed Vital Signs Vital Sign Reading Time Taken Comments Blood Pressure 121/66 01/12/2025 2:22 PM WAREHOUSE ORDER FILLER Pulse 73 01/12/2025 2:22 PM WAREHOUSE ORDER FILLER Temperature 36.9 C (98.4 F) 10/01/2024 3:15 PM CDT Respiratory Rate 20 10/01/2024 3:15 PM CDT Oxygen Saturation 94% 01/12/2025 2:22 PM WAREHOUSE ORDER FILLER Inhaled Oxygen Concentration - - Weight 134.7 kg (297 lb) 01/12/2025 2:22 PM WAREHOUSE ORDER FILLER Height 165.1 cm (5' 5) 01/12/2025 2:22 PM WAREHOUSE ORDER FILLER Body Mass Index 49.42 01/12/2025 2:22 PM WAREHOUSE ORDER FILLER Plan of Treatment Health Maintenance Due Date Last Done Comments Breast Cancer Screening-Mammogram 1975 Cervical Cancer Screening 1975 Colon Cancer Screening-Colonoscopy 1975 Depression Screening 1975 Hepatitis C Screening 1974 Regular Well Visit/Exam 18-64 1992 Zoster Vaccine (1 of 2) 2024 DTaP/Tdap/Td Vaccine (3 - Td or Tdap) 10/20/2024 10/20/2014, 10/10/2014, 03/10/2004 Covid-19 Vaccine (3 - 2024- season) 2024 06/09/2020, 05/12/2020 Influenza Vaccine (#1) 2024 , 12/06/2019, 12/03/2019, Additional history exists Hepatitis B Screening Completed 10/10/2014 Pneumococcal vaccine <65 Aged Out No longer eligible based on patient's age to complete this topic Procedures Procedure Name Priority Date/Time Associated Diagnosis Comments US VEIN MAPPING FISTULA ACCESS, BILATERAL Schedule Routine, Read Routine (OP Routine) 01/12/2025 2:17 PM WAREHOUSE ORDER FILLER Chronic kidney disease (CKD) stage G5/A1, glomerular filtration rate (GFR) less than or equal to 15 mL/min/1.73 square meter and albuminuria creatinine ratio less than 30 mg/g (HCC) from Last 3 Months Results * US Vein Mapping Fistula Access, Bilateral (01/12/2025 2:17 PM WAREHOUSE ORDER FILLER) Anatomical Region Laterality Modality Vascular Bilateral Ultrasound 01/12/2025 1:45 PM WAREHOUSE ORDER FILLER Narrative 01/12/2025 7:32 PM WAREHOUSE ORDER FILLER [facility] - Department of Vascular Surgery, Vascular Laboratory [address] [place] [address] Upper Extremity Vein Mapping Report Patient Name: JOANN TAVARES : 1975 (49y 8m) Study Date: 01/12/2025 1:45:52 PM Sex: F Bsa Officer: /DEE DEE Location: [facility] Ref Provider: MAYRA HOLLY Quality: Adequate Order Provider: MAYRA HOLLY PROCEDURES: Mapping Report: Bilateral Upper Extremity Vein Mapping. INDICATIONS: N18.5 Chronic kidney disease, stage 5. MEASUREMENTS: Right Value Units Left Value Units Rt Axillary Vein Diameter 0.60 cm Lt Axillary Vein Diameter 0.95 cm Rt Prox Brachial Vein D. 1 0.26 cm Lt Prox Brachial Vein D. 1 0.36 cm Rt Prox Brachial Vein D. 2 0.48 cm Lt Prox Brachial Vein D. 2 0.41 cm Rt Mid Brachial Vein D. 1 0.27 cm Lt Mid Brachial Vein D. 1 0.27 cm Rt Mid Brachial Vein D. 2 0.29 cm Lt Mid Brachial Vein D. 2 0.26 cm Rt Dist Brachial Vein D. 1 0.18 cm Lt Dist Brachial Vein D. 1 0.20 cm Rt Dist Brachial Vein D. 2 0.14 cm Lt Dist Brachial Vein D. 2 0.20 cm Rt Cephalic Vein Zone 1 0.34 cm Lt Cephalic Vein Zone 1 0.29 cm Rt Cephalic Vein Zone 2 0.34 cm Lt Cephalic Vein Zone 2 0.28 cm Rt Cephalic Vein Zone 3 0.41 cm Lt Cephalic Vein Zone 3 0.31 cm Rt Cephalic Vein Zone 4 0.33 cm Lt Cephalic Vein Zone 4 0.13 cm Rt Cephalic Vein Zone 5 0.24 cm Lt Cephalic Vein Zone 5 0.16 cm Rt Cephalic Vein Zone 6 0.26 cm Lt Cephalic Vein Zone 6 0.08- atrophic vs chronic SVT cm Rt Cephalic Vein Zone 7 0.25 cm Lt Cephalic Vein Zone 7 0.08 cm Rt Basilic Vein Zone 1 0.46 cm Lt Basilic Vein Zone 1 0.27 cm Rt Basilic Vein Zone 2 0.50 cm Lt Basilic Vein Zone 2 0.30 cm Rt Basilic Vein Zone 3 0.34 cm Lt Basilic Vein Zone 3 0.14 cm Rt Basilic Vein Zone 4 0.22 cm Lt Basilic Vein Zone 4 0.16 cm Rt Basilic Vein Zone 5 0.31 cm Lt Basilic Vein Zone 5 0.24 cm Rt Basilic Vein Zone 6 0.22 cm Lt Basilic Vein Zone 6 0.21 cm Rt Basilic Vein Zone 7 0.21 cm Lt Basilic Vein Zone 7 0.12 cm Right Value Units Left Value Units FINDINGS: Performing Bsa Officer: Cait Mojica, BRIGITTE, RVT. Bilateral: Venous Doppler signals in the bilateral upper extremities are within normal limits for spontaneity and phasicity; normal response to compression maneuvers. Duplex imaging of bilateral cephalic and basilic veins reveals the cross-sectional measurements noted above. Comments: Unable to visualize left IJV. CONCLUSIONS: 1. Duplex imaging of bilateral cephalic and basilic veins reveals the cross- sectional measurements noted above. 2. No evidence of acute deep vein thrombosis bilaterally in the upper extremities. HISTORY: Chronic kidney disease. PREVIOUS STUDIES: No previous studies for comparison. DISCLAIMER: Zone 1 = proximal arm; Zone 2 = mid arm; Zone 3 = distal arm; Zone 4 = ante- cubital; Zone 5 = proximal forearm; Zone 6 = mid forearm; Zone 7 = distal forearm. All measurements are obtained with a tourniquet placed on the upper arm unless it is contraindicated and noted in the report. The study images and the final report will be retained in the patient chart by the Vascular Laboratory for the legally required time period. This chart constitutes the legal record of any testing performed. ATTESTATION: I have reviewed and interpreted the pertinent images and measurements of this study. I attest to the conclusions in the final report that is provided above. Electronically Signed By: Lorenzo Elizondo MD FACS 01/12/2025 7:03:15 PM WAREHOUSE ORDER FILLER Procedure Note Lorenzo Elizondo MD - 01/12/2025 [facility] - Department of Vascular Surgery,Vascular Laboratory [address] [place] [id number] Upper Extremity Vein Mapping Report Patient Name: JOANN TAVARES : 1975 (49y 8m) Study Date: 01/12/2025 1:45:52 PM Sex: F Bsa Officer: /DEE DEE Location: [facility] Provider: MAYRA HOLLY Quality: Adequate Order Provider: MAYRA HOLLY PROCEDURES: Mapping Report: Bilateral Upper Extremity Vein Mapping. INDICATIONS: N18.5 Chronic kidney disease, stage 5. MEASUREMENTS: Right Value Units Left Value Units Rt Axillary Vein Diameter 0.60 cm Lt Axillary Vein Diameter 0.95 cm Rt Prox Brachial Vein D. 1 0.26 cm Lt Prox Brachial Vein D. 1 0.36 cm Rt Prox Brachial Vein D. 2 0.48 cm Lt Prox Brachial Vein D. 2 0.41 cm Rt Mid Brachial Vein D. 1 0.27 cm Lt Mid Brachial Vein D. 1 0.27 cm Rt Mid Brachial Vein D. 2 0.29 cm Lt Mid Brachial Vein D. 2 0.26 cm Rt Dist Brachial Vein D. 1 0.18 cm Lt Dist Brachial Vein D. 1 0.20 cm Rt Dist Brachial Vein D. 2 0.14 cm Lt Dist Brachial Vein D. 2 0.20 cm Rt Cephalic Vein Zone 1 0.34 cm Lt Cephalic Vein Zone 1 0.29 cm Rt Cephalic Vein Zone 2 0.34 cm Lt Cephalic Vein Zone 2 0.28 cm Rt Cephalic Vein Zone 3 0.41 cm Lt Cephalic Vein Zone 3 0.31 cm Rt Cephalic Vein Zone 4 0.33 cm Lt Cephalic Vein Zone 4 0.13 cm Rt Cephalic Vein Zone 5 0.24 cm Lt Cephalic Vein Zone 5 0.16 cm Rt Cephalic Vein Zone 6 0.26 cm Lt Cephalic Vein Zone 6 0.08- atrophic vschronic SVT cm Rt Cephalic Vein Zone 7 0.25 cm Lt Cephalic Vein Zone 7 0.08 cm Rt Basilic Vein Zone 1 0.46 cm Lt Basilic Vein Zone 1 0.27 cm Rt Basilic Vein Zone 2 0.50 cm Lt Basilic Vein Zone 2 0.30 cm Rt Basilic Vein Zone 3 0.34 cm Lt Basilic Vein Zone 3 0.14 cm Rt Basilic Vein Zone 4 0.22 cm Lt Basilic Vein Zone 4 0.16 cm Rt Basilic Vein Zone 5 0.31 cm Lt Basilic Vein Zone 5 0.24 cm Rt Basilic Vein Zone 6 0.22 cm Lt Basilic Vein Zone 6 0.21 cm Rt Basilic Vein Zone 7 0.21 cm Lt Basilic Vein Zone 7 0.12 cm Right Value Units Left Value Units FINDINGS: Performing Bsa Officer: Cait Mojica, BRIGITTE, RVT. Bilateral: Venous Doppler signals in the bilateral upper extremities arewithin normal limits for spontaneity and phasicity; normal response to compressionmaneuvers. Duplex imaging of bilateral cephalic and basilic veins reveals thecross-sectional measurements noted above. Comments: Unable to visualize left IJV. CONCLUSIONS: 1. Duplex imaging of bilateral cephalic and basilic veins reveals thecross- sectional measurements noted above. 2. No evidence of acute deep vein thrombosis bilaterally in the upperextremities. HISTORY: Chronic kidney disease. PREVIOUS STUDIES: No previous studies for comparison. DISCLAIMER: Zone 1 = proximal arm; Zone 2 = mid arm; Zone 3 = distal arm; Zone 4 =ante- cubital; Zone 5 = proximal forearm; Zone 6 = mid forearm; Zone 7 = distal forearm. All measurements are obtained with a tourniquet placed on the upper armunless it is contraindicated and noted in the report. The study images and the final report will be retained in the patientchart by the Vascular Laboratory for the legally required time period. This chartconstitutes the legal record of any testing performed. ATTESTATION: I have reviewed and interpreted the pertinent images and measurements ofthis study. I attest to the conclusions in the final report that is provided above. Electronically Signed By: Lorenzo Elizondo MD [facility] 01/12/2025 7:03:15 PM WAREHOUSE ORDER FILLER Mayra Holly MD [facility] PROCEDURES Final Resul t from Last 3 Months Insurance [facility] MEDICARE [facility] Address: [address] [address] [place] [address] [facility] H[facility]/PPO Address: [address] [address] [place] [address] [facility] MEDICARE ADVANTAGE [facility] MEDICARE Address: [address] [address] [place] [address] [facility] H[facility]/PPO Address: [address] [address] [place] [address] Advance Directives For more information, please contact: [phone] * Full Code (Latest Code Status on File) Date Activated Date Inactivated Comments 07/23/2023 3:39 PM 07/25/2023 6:34 PM Care Teams Tellers Supervisor Relationship Specialty Start Date End Date Matias Warren MD [address] [place], [place] [phone] PCP - General Internal Medicine 07/20/23
--- OUTSIDE RECORDS SUMMARY | 2025-01-21 19:55 | XMS_ITS | Clinical Summary ---
Author Organization [facility] Address [address] [place] [address] Care Team Providers Care Rehabilitation Therapy Aide Name Role Phone Treesita Cortez MD Primary Care Provider [phone] Source Comments [facility] [employer],non-owned Affiliates and Associated Physician Practices is amultiple site organization consisting of ambulatory clinics and hospital sitesin [place], [place], [place] and [place]. This disclosure is being madepursuant to the Care Everywhere program and may not contain all information available regarding this patient. Last updated 17.[facility] [employer] Allergies Active Allergy Reactions Criticality Noted Date [...] Insurance MEDICAID - OUT OF STATE MEDICARE [place] [address] SELF PAY NO INSURANCE Member Subscriber Plan / Payer (Ef fective for All Dates) Name:Joann Tavares Member ID:Not on file Relation to Subscriber:Not on file Name:JOANN TAVARES Subscriber ID:Not on file (Home) Address: [facility] [place] [address] [address] Payer ID:Not on file Group ID:Not on file Type:Self Pay Address: [place], [place] Care Teams Rehabilitation Therapy Aide Relationship Specialty Start Date End Date Teresita Cortez MD [address] [place] [address] [address] [place] [id number] PCP - General 05/07/19
[2025-01-22 05:09] LABS: Hep B Core Ab, Total Negative (Negative)
== END 2025-01-21 15:41 | disposition home or self-care (01) ==
LOC: ANHLAB 15:41
PROVIDERS: Visit Provider Internal Medicine Nephrology
DX: E11.22 Type 2 diabetes mellitus with diabetic chronic kidney disease (principal); D64.9 Anemia, unspecified; R79.89 Other specified abnormal findings of blood chemistry; R17 Unspecified jaundice; R53.83 Other fatigue; R10.11 Right upper quadrant pain; R06.00 Dyspnea, unspecified; I12.0 Hypertensive chronic kidney disease with stage 5 chronic kidney disease or end stage renal disease; N18.6 End stage renal disease
CPT/HCPCS: 36415; 80069; 86480; 86704; 86706; 87340

== ENCOUNTER 2025-02-25 08:31 | Outpatient (CLI) | payer OTHER, SELFPAY ==
--- NOTE | ~2025-02-25 | CT_ITS ---
EXAMINATION: CT chest abdomen pelvis wo con DATE: 02/25/2025 09:12 INDICATION: Abnormal colonoscopy TECHNIQUE: Computed tomography (CT) of the chest, abdomen, and pelvis was performed without intravenous contrast. Automated exposure control and iterative reconstruction technique were employed. The dose-length product was 1985.06 mGy-cm. COMPARISON: Chest CT dated 05/14/2024 FINDINGS: CHEST CT: No interval change in multiple bilateral <3 mm calcified and noncalcified pulmonary nodules predominantly in the bilateral lower lobes which are most likely sequela of old granulomatous disease. Resolution of the previously seen groundglass opacities and small right pleural effusion. No pneumonia, pulmonary edema or pleural effusion. Heart size is normal. Small amount of atherosclerotic coronary artery calcium location. No pericardial effusion. Thoracic aorta is normal in caliber. No pathologically enlarged thoracic lymphadenopathy. Mild to moderate thoracic spondylosis. ABDOMEN/PELVIS CT: There are multiple hypodense hepatic masses the largest in segment IVb measuring 7 cm which are concerning for metastatic disease. Gallbladder, spleen, pancreas, bilateral adrenal glands are normal. Mild bilateral renal atrophy without nephrolithiasis or hydronephrosis. There appears be a small segment of focal wall thickening in the proximal sigmoid colon which given the provided history of abnormal colonoscopy in the multiple hepatic masses raises concern for a primary colon cancer. There are several soft tissue density nodules along the sigmoid mesentery near the region of colonic wall thickening and extending cephalad lung the inferior mesenteric vein which are concerning for metastatic lymphadenopathy, the largest measuring up to 1.5 cm in short axis diameter. Small bowel and appendix are normal. Bladder, anteverted uterus and bilateral adnexa are unremarkable. 1.6 cm low-attenuation likely nabothian cyst at the cervix. No free intraperitoneal gas or fluid. Mild lumbar levocurvature with se jeffery spondylosis. No suspicious lytic or blastic bone lesions. IMPRESSION: 1. Segment of wall thickening at the proximal sigmoid colon concerning for primary colon cancer with multiple enlarged likely metastatic lymph nodes in the adjacent sigmoid mesentery and inferior mesenteric chain and multiple hepatic masses also concerning for metastatic disease. Reviewed, dictated and finalized at location A. [facility] IMPRESSION: 1. Segment of wall thickening at the proximal sigmoid colon concerning for prim becky colon cancer with multiple enlarged likely metastatic lymph nodes in the ad jacent sigmoid mesentery and inferior mesenteric chain and multiple hepatic mas ses also concerning for metastatic disease.
--- OUTSIDE RECORDS SUMMARY | 2025-02-25 08:42 | XMS_ITS | Patient Health Record ---
Author Organization [facility] Address [address] [place] [id number] Care Team Providers Care Psychology Associate Name Role Phone Kelvin MEMBRENO, Andres Primary Care Provider Rudy Moses Unavailable [phone] Allergies Allergen (clinical drug ingredient) Drug/Non Drug Allergy documented on EMR Reaction Allergy Type Onset Date Status ciprofloxacin Cipro Unknown Drug Allergy Act reynaldo cephalexin Cephalexin Unknown Drug Allergy Activ e morphine Morphine Sulfate Unknown Drug Allergy Active Floxin Otic Unknown Drug Allergy Activ e meperidine Demerol Unknown Drug Allergy Active Reason For Referral No Information Medications Medication SIG (Take, Route, Frequency, Duration) Notes Start Date End Date Status Veltassa 8.4 GM Packet 1 packet dissolved in water. Take other medications at least 3 hours before or 3 hours after this medication Orally Once a day; Duration: 30 day(s) Unknown Ozempic (0.25 or 0.5 MG/DOSE) 2 MG/3ML Solution Pen-injector as directed Subcutaneous once a week LAST DOSE 2 WEEKS AGO Unknown Vitamin D (Ergocalciferol) 06072 UNIT Capsule 1 capsule Orally Once a week Unknown Folic Acid 400 MCG Tablet 1 tablet Orally Once a day; Duration: 30 day(s) Unknown Aspirin 81 81 MG Tablet Delayed Release 1 tablet Orally Once a day; Duration: 30 day(s) Unknown Vitamin C 500 MG Capsule as directed Orally Unknown Fluconazole 150 MG Tablet as directed Orally Unknown Kerendia 10 MG Tablet 1 tablet Orally On ce a day; Duration: 30 day(s) Unknown Vitamin B-12 1000 MCG Tablet 1 tablet Orally Once a day; Duration: 30 day(s) Unknown Irbesartan 300 MG Tablet 1 tablet Orally Once a day; Duration: 30 day(s) Unknown diazePAM 10 MG Tablet 1 tablet as needed Orally three times a day Unknown Torsemide 10 MG Tablet 1 tablet Orally Once a day; Duration: 90 days Active Carvedilol 25 MG Tablet 1 tablet with food Orally Twice a day Unknown Ferrous Sulfate 325 (65 Fe) MG Tablet Delayed Release 1 tablet Orally two times a day; Duration: 90 days Active amLODIPine Besylate 10 MG Tablet 1 tablet Orally Once a day; Duration: 30 day(s) Unknown Iron (Ferrous Sulfate) 325 (65 Fe) MG Tablet 1 tablet Orally Once a day Unknown Jardiance 25 MG Tablet 1 tablet Orally Once a day; Duration: 30 day(s) Unknown Immunizations Vaccine Route Administration Date Status Comme nts Influenza Unknown 12/23/2022 Others Social History Tobacco Use: Social History Observation Description Date Details (start date - stop date) Former Smoker NA - NA Social History Tobacco Use: Social Info Question Answer Notes Tobacco Use/Smoking You are a former smoker Problems Problem Type SNOMED Code ICD Code Onset Dates Problem Status W/U Status Risk Notes Problem Essential hypertension (13491633) Essential (primary) hypertension (I10) Active confirmed Problem Iron deficiency anemia (32978052) Iron deficiency anemia, unspecified (D50.9) Active confirmed Problem Diabetic renal disease (301098401) 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) Active confirmed Problem 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 (12735548230987) 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) Active confirmed Problem Diabetic peripheral neuropathy associated with type 2 diabetes mellitus (8843762285819) Type 2 diabetes mellitus with diabetic neuropathy, unspecified (E11.40) Active confirmed Problem Vitamin D deficiency (01190317) Vitamin D deficiency, unspecified (E55.9) Active confirmed Problem Obesity (672406835) Obesity, unspecified (E66.9) Active confirmed Problem Chronic kidney disease stage 3 (684359031) CHRONIC KIDNEY DISEASE STAGE 3 UNSPECIFIED (N18.30) Active confirmed Plan Of Treatment Pending Test Test Name Order Date Ultrasound [...] Insured Coverage Start Date Coverage End Date [employer] [address] [place], [place] [id number] Joann Tavares Self - patient is the insured [place] [address] [place] [address] [id number] Joann Tavares Self - patient is the insured [place] [facility] [place] [facility] [address] [address] [place] [phone] [id number] Joann Tavares Self - patient is the insured Medical (General) History Medical History History ICD Code Diabetes mellitus type 2 uncomplicated Essential hypertension Generalized anxiety disorder Iron deficiency anemia Nonorganic sleep apnea adult Obesity morbid Vitamin D deficiency US Renal: 12/13/2022: Small left kidney without evidence of nephrolithiasis, hydronephrosis, or solid renal mass. Surgical History Surgery Date(Month/Year) C-Sections 1992,1994,2002 Tubal ligation 2013 Hospitalization History Reason Date(Month/Year) see surgical history
--- OUTSIDE RECORDS SUMMARY | 2025-02-25 08:42 | XMS_ITS | Clinical Summary ---
Author Organization [facility] Address [address] [place] [address] Phone Care Team Providers Care Pr Internship Name Role Phone Matias Warren MD Primary Care Provider [phone] Allergies Active Allergy Reactions Criticality Noted Date [...] 02/06/2018, Additional history exists SARS-COV-2 Immunization ( - 2024- season) 2024 06/09/2020, 05/12/2020 TdaP Immunization Completed 10/10/2014 DTaP/Tdap/Td Immunization Discontinued 2014, 10/10/2014, 03/10/2004 Human Papillomavirus (HPV) Immunization (No Doses Required) Completed Meningococcal Immunization (ACWY) Aged Out No longer [...] Recently Relevant to Health Maintenance Insurance MEDICARE [facility] Care Teams Pr Internship Relationship Specialty Start Date End Date Matias Warren MD [address] [place] [phone] PCP - General Family Medicine 07/09/23
--- OUTSIDE RECORDS SUMMARY | 2025-02-25 08:42 | XMS_ITS | Clinical Summary ---
Author Organization [facility] Address [address] [place] [address] Care Team Providers Care Composition Stone Applicator Name Role Phone Matias Warren MD Primary Care Provider [phone] Allergies Active Allergy Reactions Criticality Noted Date [...] Problems Problem Noted Date Diagnosed Date Chronic kidney disease (CKD), stage V 02/01/2025 Sepsis, due to unspecified o rganism, unspecified whether acute organ dysfunction present 07/20/2023 Encounters Date Type Department Care Team Description 02/17/2025 12:30 PM MIXER AND BLENDER - 02/17/2025 11:59 PM MIXER AND BLENDER Hospital Encounter [address] [address] Discharge Disposition: Discharge to home or self care 02/02[facility] [address] [facility] Advanced Medicine 12th [place] [address] [place] [address] Leslie Hernandez MD 02/01/2025 [facility] [address] [place] [address] Advanced Medicine 12th [place] [address] [place] [address] Leslie Hernandez MD 01/31/2025 Telephone [facility] Medicine Surgery [address] [place] [address] Medicine [facility] [place] [address] [place] [address] Leslie Hernandez MD 01/28/2025 Telephone [facility] Medicine Surgery [address] [place] [address] [place] [address] [place] [address] Leslie Hernandez MD 01/27/2025 Telephone [facility] Medicine Surgery [address] [place] [address] Medicine 8th [place] [address] [place] [address] Thad Holly MD 01/13/2025 Telephone [facility] Medicine Vascular Surgery [address] [facility] Medical Office Building [address] [place] [address] Thad Holly MD 01/12/2025 3:00 PM M[facility]ER AND BLENDER [facility] [address] [place] [address] Medicine [facility] [place] [address] [place] [address] Thad Holly MD Chronic kidney disease (CKD) stage G5/A1, glomerular filtration rate (GFR) less than or equal to 15 mL/min/1.73 square meter and albuminuria creatinine ratio less than 30 mg/g (HCC) (Primary Dx) 01/12/2025 1:45 PM MIXER AND BLENDER Ancillary Procedure [facility] Medicine Vascular Lab at the [address] 8th [place] [address] [place] [phone] Chronic kidney disease (CKD) stage G5/A1, glomerular filtration rate (GFR) less than or equal to 15 mL/min/1.73 square meter and albuminuria creatinine ratio less than 30 mg/g (HCC) 12/06/2024 [facility] [address] [facility] Floor 1 [place] [phone] Thad Holly MD 12/02/2024 Telephone [facility] Medicine Surgery [address] [facility] Floor 1 [place] [phone] Thad Holly MD 12/02/2024 Orders Only [facility] Medicine Vascular Surgery [address] [facility] Medical Office Building 3 [address] [place] [phone] Thad Holly MD Chronic kidney disease (CKD) stage G5/A1, glomerular filtration rate (GFR) less than or equal to 15 mL/min/1.73 square meter and albuminuria creatinine ratio less than 30 mg/g (HCC) (Primary Dx) from Last 3 Months Surgical History Surgery Date Site/Laterality Comments OTHER SURGICAL HISTORY Panic attack SECTION TUBAL LIGATION Medical History Medical History Date Comments Diabetes mellitus Diabetes pieroi magalys Hypertension Family History Medical History Relation Name [...] = 0.6 oz pur e alcohol) [facility] Utilities Answer Date Recorded In the past 12 months has e [employer], gas, oil, or water [employer] threatened to shut off services in your [...] often do you attend chur ch or yazdanism services? Never 07/23/2023 Do you belong to any clubs o r organizations such as bahai groups, unions, fraternal or athletic groups, or [...] place to sleep or slept in a jail (including now)? No 07/23/2023 Personal Safety Answer [...] on file Legal Sex Female 11:36 AM MIXER AND BLENDER Gender Identity Not on file Sexual Orientation Not on file Last Filed Vital Signs Vital Sign Reading Time Taken Comments Blood Pressure 121/66 01/12/2025 2:22 PM MIXER AND BLENDER Pulse 73 01/12/2025 2:22 PM MIXER AND BLENDER Temperature 36.9 C (98.4 F) 10/01/2024 3:15 PM CDT Respiratory Rate 20 10/01/2024 3:15 PM CDT Oxygen Saturation 94% 01/12/2025 2:22 PM MIXER AND BLENDER Inhaled Oxygen Concentration - - Weight 134.7 kg (297 lb) 01/12/2025 2:22 PM MIXER AND BLENDER Height 165.1 cm (5' 5) 01/12/2025 2:22 PM MIXER AND BLENDER Body Mass Index 49.42 01/12/2025 2:22 PM MIXER AND BLENDER Plan of Treatment Upcoming Encounters Date Type Department Care Team (Latest Contact Info) Description 03/08/2025 9:15 AM MIXER AND BLENDER Hospital Encounter [facility] Operating Room [address] [place] [address] Thad Holly MD [address] [facility] [address] [place] [address] 03/08/2025 9:15 AM MIXER AND BLENDER - 03/08/2025 11:45 AM MIXER AND BLENDER Surgery [facility] Operating Room [address] [place] [address] Thad Holly MD [address] [facility] [address]07[address] [place], [place] [id number] CREATION ARTERIOVENOUS FISTULA - ARM (regional primary block - NO ANESTHESIA) Scheduled Procedures Name Priority Associated Diagnoses Date/Ti me CREATION ARTERIOVENOUS FISTULA - ARM Chronic kidney disease (CKD), stage V (HCC) 03/08/2025 9:15 AM MIXER AND BLENDER Health Maintenance Due Date Last Done Comments [...] on patient's age to complete this topic Goals Goal Patient Goal Type Associated Problems Recent Progress Patient-Stated? Author Autogenerat ed Goal Care Plan Autogenerated Problem No Verona Garcia RN Procedures Procedure Name Priority Date/Time Associated Diagnosis Comments US VEIN MAPPING FISTULA ACCESS, BILATERAL Schedule Routine, Read Routine (OP Routine) 01/12/2025 2:17 PM MIXER AND BLENDER Chronic kidney disease (CKD) stage G5/A1, glomerular filtration rate (GFR) less than or equal to 15 mL/min/1.73 square meter and albuminuria creatinine ratio less than 30 mg/g (HCC) from Last 3 Months Results * US Vein Mapping Fistula Access, Bilateral (01/12/2025 2:17 PM MIXER AND BLENDER) Anatomical Region Laterality Modality Vascular Bilateral Ultrasound 01/12/2025 1:45 PM MIXER AND BLENDER Narrative 01/12/2025 7:32 PM MIXER AND BLENDER [employer] [facility] - Department of Vascular Surgery, Vascular Laboratory [address] [place] [address] Upper Extremity Vein Mapping Report Patient Name: FAIZAN TAVARES : 1975 (49y 8m) Study Date: 01/12/2025 1:45:52 PM Sex: F International Marketing Manager: ESTRELLA Location: [facility] Ref Provider: THAD HOLLY Quality: Adequate Order Provider: THAD HOLLY PROCEDURES: Mapping Report: Bilateral Upper Extremity [...] Value Units Left Value Units FINDINGS: Performing International Marketing Manager: Cait Mojica RDMS, RVT. Bilateral: Venous Doppler signals in the [...] Lorenzo Elizondo MD FACS 01/12/2025 7:03:15 PM MIXER AND BLENDER Procedure Note Lorenzo Elizondo MD - 01/12/2025 [facility] - Department of Vascular Surgery,Vascular Laboratory [address] [place] [address] Upper Extremity Vein Mapping Report Patient Name: FAIZAN TAVARES : 1975 (49y 8m) Study Date: 01/12/2025 1:45:52 PM Sex: F International Marketing Manager: MS/DEE DEE Location: [facility] Provider: THAD HOLLY Quality: Adequate Order Provider: THAD HOLLY PROCEDURES: Mapping Report: Bilateral Upper Extremity [...] Value Units Left Value Units FINDINGS: Performing International Marketing Manager: Cait Mojica, BRIGITTE, RVT. Bilateral: Venous Doppler [...] Lorenzo Elizondo MD FACS 01/12/2025 7:03:15 PM MIXER AND BLENDER us Thad Holly MD IM US PROCEDURES Final Resul t from Last 3 Months Additional Health Concerns Active Problems Noted Date Diagnosed Date Autogenerated Problem 02/01/2025 Insurance [employer] MEDICARE [facility] UHC MEDICARE ADVANTAGE [facility] Advance Directives For more information, please contact: [phone] * Full Code (Latest Code Status on File) Date Activated Date Inactivated Comments 07/23/2023 3:39 PM 07/25/2023 6:34 PM Care Teams Composition Stone Applicator Relationship Specialty Start Date End Date Matias Warren MD [address] [place] [address] PCP - General Internal Medicine 07/20/23
--- OUTSIDE RECORDS SUMMARY | 2025-02-25 08:42 | XMS_ITS | Clinical Summary ---
Author Organization [facility] Address [address] [place] [address] Care Team Providers Care Radio News Writer Name Role Phone Teresita Cortez MD Primary Care Provider [phone] Source Comments [facility] [email or web address],non-owned Affiliates and Associated Physician Practices is amultiple site organization consisting of ambulatory clinics and hospital sitesin [place], [place], [place] and [place]. This disclosure is being madepursuant to the Care Everywhere program and may not contain all information available regarding this patient. Last updated 17.[facility] [email or web address] Allergies Active Allergy Reactions Criticality Noted Date [...] Insurance MEDICAID - OUT OF STATE MEDICARE [facility] SELF PAY NO INSURANCE Member Subscriber Plan / Payer (Ef fective for All Dates) Name:Joann Tavares Member ID:Not on file Relation to Subscriber:Not on file Name:JOANN TAVARES Subscriber ID:Not on file (Home) Address: [facility] [place] [address] [address] Payer ID:Not on file Group ID:Not on file Type:Self Pay Address: [place], [place] Care Teams Radio News Writer Relationship Specialty Start Date End Date Teresita Cortez MD [address] [place] [address] [address] [place] [phone] PCP - General 05/07/19
--- OUTSIDE RECORDS SUMMARY | 2025-02-25 08:42 | XMS_ITS | Clinical Summary ---
Author Organization [facility] Address [address] [place] [address] Phone Care Team Providers Care Door Worker Name Role Phone ИВАН LILLY MD Primary Care Provider [phone] MAXX Melgar, TOM Acosta [phone] Reason for Visit and Chief Complaint visit [...] Active Last Documented On 4 4:48PM ; [facility] Chronic Kidney Disease Stage 2 Due To Type 2 Diabetes Mellitus 06/30/2023 LAURA JOHN B C Active Last Documented On 4 1:29PM ; [facility] Hyperlipidemia Due To Type 2 Diabetes Mellitus 06/30/2023 LAURA JOHN BC Activ e Last Documented On 4 1:31PM ; [facility] Note: elevated crp Kidney Atrophy Left 06/30/2023 TOM LILLY M.D. Inactive Last Documented On 4 1:28PM ; [facility] Venous Insufficiency 06/30/2023 LAURA MOSER Active Last Documented On 4 1:30PM ; [facility] Iron Deficiency Anemia 02/11/2022 TOM S DIZ ON M.D. Active Last Documented On 2 5:00PM ; [facility] Nonorganic Sleep Apnea Adult 05/21/2021 TOM LILLY M.D. Active Last Documented On 2 5:37PM ; [facility] Generalized Anxiety Disorder 02/05/2021 SCOOTER Meagan MAURA DO Active Last Documented On 1 9:22AM ; [facility] Obesity Morbid 02/05/2021 SCOOTER L MAURA DO Ac tive Last Documented On 1 9:22AM ; [facility] Iron Deficiency Anemia 05/24/2020 02/05/2021 TOM LUNA ON M.D. Resolved Last Documented On 1 9:17AM ; [facility] Vitamin D Deficiency 05/24/2020 ARLEY HEATH MD Active Last Documented On 1 4:27PM ; [facility] Essential Hypertension 07/17/2015 CANDIS MANRIQUE MD Active Last Documented On 6 5:39PM ; [facility] Plan of Treatment - Return to the clinic if condition worsens or new symptoms arise - Last Documented On 08/13/2023 1:34PM ; [facility] - Continue current medication - Last Documented On 08/13/2023 1:34PM ; [facility] - Modify drug dosage Inc Jardiance to 25 mg a day - Last Documented On 08/13/2023 1:34PM ; [facility] Inc Basaglar to 30 u 2 x a day - Patient to call if problem develops - Last Documented On 08/13/2023 1:34PM ; [facility] Care Programs CHRONIC CARE MANAGMENT Last Documented On 1 11:07AM ; [facility] Assessments Includes: Assessments from this encounter Findings - I10 - Essential (primary) hypertension - Last Documented On 08/13/2023 1:34PM ; [facility] - I10 - Essential (primary) hypertension - Last Documented On 08/13/2023 1:34PM ; [facility] - I87.2 - Venous insufficiency (chronic) (peripheral) - Last Documented On 08/13/2023 1:34PM ; [facility] - I87.2 - Venous insufficiency (chronic) (peripheral) - Last Documented On 08/13/2023 1:34PM ; [facility] - G47.30 - Sleep apnea, unspecified - Last Documented On 08/13/2023 1:34PM ; [facility] - G47.30 - Sleep apnea, unspecified - Last Documented On 08/13/2023 1:34PM ; [facility] - 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) - Last Documented On 08/13/2023 1:34PM ; [facility] - N18.2 - Chronic kidney disease, stage 2 (mild) - Last Documented On 08/13/2023 1:34PM ; [facility] - N18.2 - Chronic kidney disease, stage 2 (mild) - Last Documented On 08/13/2023 1:34PM ; [facility] - E78.5 - Hyperlipidemia, unspecified - Last Documented On 08/13/2023 1:34PM ; [facility] - E78.5 - Hyperlipidemia, unspecified - Last Documented On 08/13/2023 1:34PM ; [facility] - E55.9 - Vitamin D deficiency, unspecified - Last Documented On 08/13/2023 1:34PM ; [facility] - E55.9 - Vitamin D deficiency, unspecified - Last Documented On 08/13/2023 1:34PM ; [facility] - E66.8 - Other obesity - Last Documented On 08/13/2023 1:34PM ; [facility] - E66.8 - Other obesity - Last Documented On 08/13/2023 1:34PM ; [facility] - E11.9 - Type 2 diabetes mellitus without complications - Last Documented On 08/13/2023 1:34PM ; [facility] - E11.9 - Type 2 diabetes mellitus without complications - Last Documented On 08/13/2023 1:34PM ; [facility] - F41.1 - Generalized anxiety disorder - Last Documented On 08/13/2023 1:34PM ; [facility] - F41.1 - Generalized anxiety disorder - Last Documented On 08/13/2023 1:34PM ; [facility] - D50.9 - Iron deficiency anemia, unspecified - Last Documented On 08/13/2023 1:34PM ; [facility] - D50.9 - Iron deficiency anemia, unspecified - Last Documented On 08/13/2023 1:34PM ; [facility] Medical Equipment - Implanted Devices Includes: Current Devices No Medical Equipment Recorded Medications Includes: Medications discussed during this encounter and other current Medications Discontinued / Stopped on this date on 07/31/2023 Sodium Bicarbonate 650 MG Oral Tablet Pro vider: Diagnosis: Last Documented On 08/13/2023 1:29PM By ИВАН LILLY MD ; [facility] Amoxicillin-Pot Clavulanate 875-125 MG Oral Tablet Provider: NONI OSORIO TELEVISION REPAIRER-B C Diagnosis: Last Documented On 08/13/2023 11:21AM By ИВАН LILLY MD ; [facility] Torsemide 5 MG Oral Tablet Provider: Meagan LILLY M.D. Diagnosis: Last Documented On 08/13/2023 1:29PM By ИВАН LILLY MD ; [facility] Current Medications (continue as prescribed) Diflucan 150 MG Oral Tablet 08/14/2023 Provider: TOM LILLY M.D. Diagnosis: One tablet daily Last Documented On 08/14/2023 11:36AM By ИВАН LILLY MD ; [facility] Sodium Bicarbonate 650 MG Oral Tablet 08/13/2023 Pro vider: Diagnosis: Last Documented On 08/13/2023 11:26AM By Marques MAGDALENO ; [facility] diazePAM 10 MG Oral Tablet 08/11/2023 Provider: TOM LILLY M.D. Diagnosis: Generalized anxi ety disorder TAKE 1 TABLET BY MOUTH THREE TIMES DAILY Last Documented On 08/11/2023 8:59AM By ИВАН LILLY MD ; [facility] amLODIPine Besylate 10 MG Oral Tablet 08/10/2023 Provider: TOM LILLY M.D. Diagnosis: Essential (prima ry) hypertension TAKE 1 TABLET BY MOUTH EVERY DAY Last Documented On 08/10/2023 9:13PM By ИВАН LILLY MD ; [facility] Jardiance 25 MG Oral Tablet 08/10/2023 Provider: TOM LILLY M.D. Diagnosis: Type 2 diabetes mellitus with hyperglycemia One tablet daily Last Documented On 08/10/2023 9:13PM By ИВАН LILLY MD ; [facility] Torsemide 10 MG Oral Tablet 08/09/2023 Provider: VIRGILIO SAENZ MD Diagnosis: Last Documented On 08/13/2023 11:26AM By Marques MAGDALENO ; [facility] metOLazone 2.5 MG Oral Tablet 08/08/2023 Provider: HARPER RIVERA MD Diagnosis: Last Documented On 08/13/2023 11:26AM By Marques MAGDALENO ; [facility] BD Pen Needle Mini U/F 31G X 5 MM Miscellaneous 08/07/2023 Provider: TOM Diaz Diagnosis: Type 2 diabetes mellitus without complications as directed Last Documented On 08/07/2023 11:48AM By ИВАН LILLY MD ; [facility] Basaglar KwikPen 100 UNIT/ML Subcutaneous Solution Pen-injector 07/31/2023 Provider: TOM Ma Diagnosis: 40 u at night Last Documented On 4 8:36AM By TRINH TEJADA ; [facility] FeroSul 325 (65 Fe) MG Oral Tablet 07/31/2023 Provid er: Diagnosis: Last Documented On 4 8:36AM By TRINH TEJADA ; [facility] HumaLOG KwikPen 100 UNIT/ML Subcutaneous Solution Pen-injector 07/28/2023 Provider: TOM Ma Diagnosis: 14 u with meals Last Documented On 4 8:36AM By TRINH TEJADA ; [facility] Folic Acid 1 MG Oral Tablet 05/19/2023 Provider: TOM LILLY M.D. Diagnosis: Deficiency of ot her specified B group vitamins One tablet daily Last Documented On 4 8:36AM By TRINH TEJADA ; [facility] Dexcom G6 Transmitter Miscellaneous 03/03/2023 Provider: TOM LILLY M.D. Diagnosis: Type 2 diabetes mellitus with hyperglycemia USE DIRECTED TO CHECK BLOOD SUGAR Last Documented On 4 8:36AM By TRINH TEJADA ; [facility] Veltassa 8.4 GM Oral Packet 12/10/2022 Provider: Diagnosis: once daily Last Documented On 4 8:36AM By TRINH TEJADA ; [facility] Aspirin Adult Low Dose 81 MG Oral Tablet Delayed Relea se 12/10/2022 Provider: Diagnosis: Last Documented On 4 8:36AM By TRINH TEJADA ; [facility] Global Ease Inject Pen Needl es 31G X 5 MM Miscellaneous 11/08/2022 Provider: TONY [place] Diagnosis: DIRECTED TEST THREE TIMES DAILY Last Documented On 4 8:36AM By TRINH TEJADA ; [facility] Vitamin D3 125 MCG (5000 UT) Oral Capsule 10/09/2022 Provider: TOM LILLY M.D. Diagnosis: Vitamin D defici ency, unspecified One tablet daily Last Documented On 4 8:36AM By TRINH TEJADA ; [facility] Vitamin B12 1000 MCG Oral Tablet 10/09/2022 Provider: TOM LILLY M.D. Diagnosis: Deficiency of ot her specified B group vitamins One tablet daily Last Documented On 4 8:36AM By TRINH TEJADA ; [facility] Past Medications on file Carvedilol 25 MG Oral Tablet 07/01/2023 - 09/29/2023 Provider: TOM LILLY M.D. Diagnosis: Essential (prima ry) hypertension TAKE 1 TABLET BY MOUTH TWICE DAILY Last Documented On 4 8:36AM By TRINH TEJADA ; [facility] Dexcom G6 Sensor Miscellaneous 08/07/2022 - 02/03/2023 Provider: TOM LILLY M.D. Diagnosis: Type 2 diabetes mellitus with hyperglycemia change every 10 days as directedDX E11.65 Last Documented On 3 1:21PM By NIKOLAI MAGDALENO ; [facility] Medications Administered Includes: Administered [...] Last Documented: On 08/13/2023 11:23A M ; [facility] Results Includes: Results discussed during this encounter CBC WITH DIFF [facility] [place] Ordered by TRINH FLORES RN-FPA, TELEVISION REPAIRER-BC on 07/31/2023 [address], [place], [address] Collected: 07/31/2023 Report ed: 07/31/2023 12:57 tel: Last Documented On 4 9:10AM ; [facility] Reviewed by TRINH UNGER-JORDYN, TELEVISION REPAIRER-BC on 08/06/2023; All test results are final unless otherwise noted. ALC 1.5 None Last Documented On 4 10:18PM ; [facility] Note: Responsible Observer: ([place] ANC 5.8 None Last Documented On 4 10:18PM ; [facility] Note: Responsible Observer: [place] BASO# 0.05 th/uL (0.00 - 0.20) None Last Documented On 4 10:18PM ; [facility] Note: Responsible Observer: [place] BASO% 0.6 % (0.0 - 2.0) None Last Documented On 4 10:18PM ; [facility] Note: Responsible Observer: ([place] CBC WITH DIFF See Note None Last Documented On 4 10:18PM ; [facility] Note: CBC (COMPLETE BLOOD COUNT)Respons[place] ble Observer: [place] DIFF (Y/N) NO None Last Documented On 4 10:18PM ; [facility] Note: Responsible Observer: ([place] EOS# 0.54 th/uL (0.00 - 0.45) H (High) Last Documented On 4 10:18PM ; [facility] Note: Responsible Observer: [place] EOS% 6.3 % (0.0 - 9.0) None Last Documented On 4 10:18PM ; [facility] Note: Responsible Observer: [place] HCT 27.3 % (38.0 - 47.0) L (Low) Last Documented On 4 10:18PM ; [facility] Note: Responsible Observer: [place] HGB 9.0 g/dL (12.0 - 16.0) L (Low) Last Documented On 4 10:18PM ; [facility] Note: Responsible Observer: ([place] IG# 0.06 th/ul (0.00 - 0.10) None Last Documented On 4 10:18PM ; [facility] Note: Responsible Observer: [place] IG% 0.7 % (0.0 - 0.5) H (High) Last Documented On 4 10:18PM ; [facility] Note: Responsible Observer: [place] LYMPH# 1.49 th/uL (1.00 - 4.80) None Last Documented On 4 10:18PM ; [facility] Note: Responsible Observer: [place] LYMPH% 17.4 % (14.0 - 45.0) None Last Documented On 4 10:18PM ; [facility] Note: Responsible Observer: [place] MCH 28.1 pg (25.0 - 35.0) None Last Documented On 4 10:18PM ; [facility] Note: Responsible Observer: [place] MCHC 33.0 g/dL (31.0 - 36.0) None Last Documented On 4 10:18PM ; [facility] Note: Responsible Observer: [place] MCV 85.3 fl (80.0 - 100) None Last Documented On 4 10:18PM ; [facility] Note: Responsible Observer: [place] MONO# 0.53 th/uL (0.00 - 0.80) None Last Documented On 4 10:18PM ; [facility] Note: Responsible Observer: [place] MONO% 6.2 % (1.0 - 10.0) None Last Documented On 4 10:18PM ; [facility] Note: Responsible Observer: [place] MPV 10.3 fl (6.0 - 11.0) None Last Documented On 4 10:18PM ; [facility] Note: Responsible Observer: [place] NEUT# 5.87 th/uL None Last Documented On 4 10:18PM ; [facility] Note: Responsible Observer: [place] NEUT% 68.8 % (45.0 - 76.0) None Last Documented On 4 10:18PM ; [facility] Note: Responsible Observer: [place] NRBC% 0.0 % (0.0 - 0.0) None Last Documented On 4 10:18PM ; [facility] Note: Responsible Observer: [place] PLT 332 th/uL (150 - 400) None Last Documented On 4 10:18PM ; [facility] Note: Responsible Observer: [place] RBC 3.20 mil/uL (4.50 - 5.90) L (Low) Last Documented On 4 10:18PM ; [facility] Note: Responsible Observer: [place] RDW 15.1 % (11.0 - 16.0) None Last Documented On 4 10:18PM ; [facility] Note: Responsible Observer: [place] WBC 8.5 th/uL (4.5 - 11.0) None Last Documented On 4 10:18PM ; [facility] Note: Responsible Observer: ([place] .BB CROSSMATCH 1 UNIT (LAB ONLY) [facility] Laboratory Ordered by BALDO RG PA-C on 07/16/[address] [place] [address], [place], [address] Collected: 07/19/2023 Report ed: 07/19/2023 15:30 tel: Last Documented On 4 1:29PM ; [facility] Reviewed by TOM LILLY M.D. on 08/13/2023; All test results are final unless otherwise noted. .BB CROSSMATCH 1 UNIT (LAB ONLY) See Note None Last Documented On 08/05/2023 10:16PM ; [facility] Note: [id number] UNDoREQUEST FOR BLOOD OR BLOOD COMPONENTUNDx Patient's Arm Band Number _[id number] 07/19/23.TER.A PositiveResponsible Observer: (MEGAN) Antibody Screen None Detected None Last Documented On 08/05/2023 10:16PM ; [facility] Note: Antibody ID: Responsible Observer: (MEGAN) Crossmatch Compatible None Last Documented On 08/05/2023 10:16PM ; [facility] Note: Donor Unit Number _[id number] 07/19/23.TER. CMV NEGATIVE? _N 07/19/23.TER. IRRADIATED? _N 07/19/23.TER. TIME DATE BLOOD BANK SIGNATURE PICKED UP FROM LAB CHECKED WITH ADMINISTERED BY IDENTIFICATION NUMBER BLOOD TYPE AND Rh OF RECIPIENT AND UNIT OF BLOOD AGREE YES --------- NO ---------Responsible Observer: GARRICK) Donor's Type A Positive None Last Documented On 08/05/2023 10:16PM ; [facility] Note: Donor Expiration Date [...] 08/13/2023 Last Documented On 4 1:34PM ; [facility] DME in home: wheelchair 08/13/2023 Last Documented On 4 1:34PM ; [facility] Soc Hx: works as [employer] er on disability. . No alcohol, drugs, tobacco, vaping. Diet: regular. Exercise: none 06/30/2023 Last Documented On 4 11:14AM ; [facility] A high-sugar diet 06/30/2023 Last Documented On 4 11:14AM ; [facility] Amount of sleep 06/30/2023 Last Documented On 4 11:14AM ; [facility] Current nonsmoker 06/30/2023 Last Documented On 4 11:14AM ; [facility] Diet needs improvement 06/30/2023 Last Documented On 4 11:14AM ; [facility] Eats breakfast regularly 06/30/2023 Last Documented On 4 11:14AM ; [facility] Exercising regularly 06/30/2023 Last Documented On 4 11:14AM ; [facility] Former smoker 06/30/2023 Last Documented On 4 11:14AM ; [facility] Frequency of meals 06/30/2023 Last Documented On 4 11:14AM ; [facility] Frequent high carbohydrate meals 024 Last Documented On 4 11:14AM ; [facility] Good exercise habits 06/30/2023 Last Documented On 4 11:14AM ; [facility] Lives with spouse 06/30/2023 Last Documented On 4 11:14AM ; [facility] Marital history 06/30/2023 Last Documented On 4 11:14AM ; [facility] Missing meals 06/30/2023 Last Documented On 4 11:14AM ; [facility] No caffeine use 06/30/2023 Last Documented On 4 11:14AM ; [facility] No consumption of alcohol 06/30/2023 Last Documented On 4 11:14AM ; [facility] No tobacco use 06/30/2023 Last Documented On 4 11:14AM ; [facility] No travel 06/30/2023 Last Documented On 4 11:14AM ; [facility] Non-smoker 06/30/2023 Last Documented On 4 11:14AM ; [facility] Not a current smoker 06/30/2023 Last Documented On 4 11:14AM ; [facility] Not using drugs 06/30/2023 Last Documented On 4 11:14AM ; [facility] Nutritional quality of diet 06/30/2023 Last Documented On 4 11:14AM ; [facility] 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 06/29 Last Documented On 4 11:14AM ; [facility] Sexually active 06/30/2023 Last Documented On 4 11:14AM ; [facility] Stopped smoking years ago 1996 4 Last Documented On 4 11:14AM ; [facility] Work history 06/30/2023 Last Documented On 4 11:14AM ; [facility] 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 Last Documented On 4 11:14AM ; [facility] Sexually active with 1 partners in the l ast year 06/30/2023 Last Documented On 4 11:14AM ; [facility] Currently 02/22/2020 Last Documented On 4 11:14AM ; [facility] No work-related circumstances 02/22/2020 Last Documented On 4 11:14AM ; [facility] Not using alcohol 02/22/2020 Last Documented On 4 11:14AM ; [facility] Smoking Status Unknown Procedures and Surgical History Includes: Procedures from this encounter Procedures Code Diagnosis Performing Provider Service L ocation Service Date use of tobacco assessment performed 1000F Last Documented On 4 11:23AM ; [facility] standardized depression screening: negative for symptoms 3351F Last Documented On 4 11:14AM ; [facility] review of medications documented 1160F Last Documented On 4 11:23AM ; [facility] assessment of suicide risk performed Last Documented On 4 11:14AM ; [facility] screening for adult depression: impressi on and score three Last Documented On 4 11:14AM ; [facility] Surgical History Last Updated Prior surgery Csectionx3 05/21/2021 Last Documented On 4 11:14AM ; [facility] History of section 02/02/2021 Last Documented On 4 11:14AM ; [facility] History of tubal ligation 2002 5 Last Documented On 4 11:14AM ; [facility] Surgical / procedural history c section x 3 1991,1993, and 200207/26/2014 Last Documented On 4 11:14AM ; [facility] Medical History Includes: Medical History addressed during this encounter Description Last Updated Vaccine history 07/31/2023 Last Documented On 4 11:14AM ; [facility] LMP: 06/23/2023 06/30/2023 Last Documented On 4 11:14AM ; [facility] History of screening mammogram was perfo rmed 2021 -- at [facility] 06/30/2023 Last Documented On 4 11:14AM ; [facility] History of Pap smear done 2014 4 Last Documented On 4 11:14AM ; [facility] Systolic blood pressure 140 mmHg 023 Last Documented On 4 11:14AM ; [facility] Diastolic blood pressure 90 mmHg 022 Last Documented On 4 11:14AM ; [facility] Arthritis 05/21/2021 Last Documented On 4 11:14AM ; [facility] Currently wearing eyeglasses 05/21/2021 Last Documented On 4 11:14AM ; [facility] Diabetes 05/21/2021 Last Documented On 4 11:14AM ; [facility] Hypertension 05/21/2021 Last Documented On 4 11:14AM ; [facility] No. of Pregnancies: 3 05/21/2021 Last Documented On 4 11:14AM ; [facility] Contact with and (Suspected) exposure to COVID-19 03/14/2021 Last Documented On 4 11:14AM ; [facility] Date COVID symptoms started: 03/14/2021 Last Documented On 4 11:14AM ; [facility] A mammogram was performed 2018 1 Last Documented On 4 11:14AM ; [facility] A self-exam of the feet was performed Last Documented On 4 11:14AM ; [facility] Blood sugar was checked by the patient 1 04/24/2019 Last Documented On 4 11:14AM ; [facility] Diet noncompliance 02/22/2020 Last Documented On 4 11:14AM ; [facility] blood sugar check performed 020 Last Documented On 4 11:14AM ; [facility] No recent insulin (hypoglycemic) reactio n 02/22/2020 Last Documented On 4 11:14AM ; [facility] Noncompliance with exercise program 02/07 Last Documented On 4 11:14AM ; [facility] Past medical history 02/22/2020 Last Documented On 4 11:14AM ; [facility] Urine protein was checked 02/22/2020 Last Documented On 4 11:14AM ; [facility] Surgeries: C-sections 1992,1 994,2002. 2013 admitted for extended migraine. ~Illnesses: diabetes, hypertension, OA, Herpes type 1, migraine, Vit D def 04/18/2019 Last Documented On 4 11:14AM ; [facility] History of essential hypertension 2015 Last Documented On 4 11:14AM ; [facility] History of type 2 diabetes mellitus 11/2015 Last Documented On 4 11:14AM ; [facility] History of arthritis 07/17/2015 Last Documented On 4 11:14AM ; [facility] History of diabetes mellitus 07/17/2015 Last Documented On 4 11:14AM ; [facility] History of hypertension 07/17/2015 Last Documented On 4 11:14AM ; [facility] Previous hospitalizations 07/17/2015 Last Documented On 4 11:14AM ; [facility] History of anxiety disorder NOS 07/27/19 15 Last Documented On 4 11:14AM ; [facility] section 07/26/2014 Last Documented On 4 11:14AM ; [facility] In monogamous relationship 07/26/2014 Last Documented On 4 11:14AM ; [facility] Contraception: btl 07/26/2014 Last Documented On 4 11:14AM ; [facility] 3 07/26/2014 Last Documented On 4 11:14AM ; [facility] Para 3 07/26/2014 Last Documented On 4 11:14AM ; [facility] Sexually active 07/26/2014 Last Documented On 4 11:14AM ; [facility] Family History Includes: Family History addressed during this encounter Description Last Updated Family history of malignant female breas t neoplasm P. GREAT AUNT 06/30/2023 Last Documented On 4 11:14AM ; [facility] Family history of malignant neoplasm of large intestine M GRANDFATHER 06/30/2023 Last Documented On 4 11:14AM ; [facility] 5 children 05/21/2021 Last Documented On 4 11:14AM ; [facility] Family history of Arthritis 05/21/2021 Last Documented On 4 11:14AM ; [facility] Family history of anxiety disorder NOS 1 04/04/2020 Last Documented On 4 11:14AM ; [facility] Family history of cancer Col on cancer - maternal granfather ~eye cancer - maternal grandmother 02/02/2021 Last Documented On 4 11:14AM ; [facility] Family history of diabetes mellitus 01/09 Last Documented On 4 11:14AM ; [facility] Family history of heart disease 02/03/20 21 Last Documented On 4 11:14AM ; [facility] Family history of migraine headache 01/09 Last Documented On 4 11:14AM ; [facility] Family history unchanged 08/24/2020 Last Documented On 4 11:14AM ; [facility] FMHx: PGF from lightnin g strike. PGM - DM, HTN, [place] 67. MGF - Alzheimer's 1986. MGM - eye cancer. Uncle - HTN, DM, Kidney failure. Uncle COPD. Mother: HTN, anxiety, COPD 04/18/2019 Last Documented On 4 11:14AM ; [facility] Maternal history of hypertension 016 Last Documented On 4 11:14AM ; [facility] Paternal grandfather's histo ry of malignant neoplasm of the large intestine 07/26/2014 Last Documented On 4 11:14AM ; [facility] Family history of hypertension 5 Last Documented On 4 11:14AM ; [facility] Paternal grandmother's histo ry of diabetes mellitus paternal aunt and uncle 07/26/2014 Last Documented On 4 11:14AM ; [facility] Paternal history of family history of he art disease 07/26/2014 Last Documented On 4 11:14AM ; [facility] Review of Systems Includes: Review of Systems [...] tive Last Documented On 4 11:14AM ; [facility] Floxin Otic Allergy 07/26/2014 Active Last Documented On 4 11:14AM ; [facility] Farxiga Intolerance yeast vaginitis 12/24/2021 A ctive Last Documented On 4 11:14AM ; [facility] Demerol Allergy 07/26/2014 Active Last Documented On 4 11:14AM ; [facility] Cipro Allergy 07/26/2014 Active Last Documented On 4 11:14AM ; [facility] cephalexin Allergy 07/26/2014 Active Last Documented On 4 11:14AM ; [facility] Encounters Encounter Provider Location Date Check-In Time Check-Out Time Diagnosis CHECK UP TOM LILLY M.D. [facility] 08/13/19 24 10:50AM [...] Subscriber Relationship Effect reynaldo Dates 1 - [facility] [id number] FAIZAN Webster 03/10/2023 - Unknown 2 - MEDICARE PART A CLAIMS/NGS [id number] FAIZAN Webster Clinical Notes Includes: Clinical Notes from this encounter * Progress note Date Encounter Last Documented by 08/13/2023 CHECK UP Last documented on 08/13/2023; 1:34 PM, TOM LILLY M.D.; [facility] Active Problems & Conditions [...] 1 refills - Global Ease Inject Pen Deal 31G X 5 MM Miscellaneous 31G X [...] and durable medical equipment: wheelchair. 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 Marital: Marital history and currently . Sexual: Sexually active with 1 partners in the last year. Travel: No travel. 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 . No alcohol, drugs, tobacco, vaping. Diet: regular. Exercise: none. Allergies - cephalexin - Cipro - Demerol - Farxiga (Intolerance) Reaction: yeast vaginitis (Mild) - Floxin Otic - Morphine Sulfate Family History 5 children Cancer Colon cancer - maternal granfather eye cancer - maternal grandmother Heart disease Family history unchanged FMHx: PGF from lightning strike. PGM - DM, HTN, [place] age 66. MGF - Alzheimer's 1985. MGM [...]
--- OUTSIDE RECORDS SUMMARY | 2025-02-25 08:42 | XMS_ITS | Clinical Summary ---
Author Organization [facility] Address [address] [place] [address] Phone Care Team Providers Care Communications Equipment Operator Name Role Phone ИВАН LLILY MD Primary Care Provider [phone] MAXX Melgar, TOM Acosta [phone] Reason for Visit and Chief Complaint [Patient Encounter] Problems Includes: Problems addressed during this encounter and other active Problems All Visits Onset Date Resolved Date Provider Condition S tatus Diabetes Mellitus Type 2 07/14/2023 TOM LILLY M.D. Active Last Documented On 4 4:48PM ; [facility] Chronic Kidney Disease Stage 2 Due To Type 2 Diabetes Mellitus 06/30/2023 LAURA JOHN B C Active Last Documented On 4 1:29PM ; [facility] Hyperlipidemia Due To Type 2 Diabetes Mellitus 06/30/2023 LAURA FONTENOT RN AVA BC Activ e Last Documented On 4 1:31PM ; [facility] Note: elevated crp Venous Insufficiency 06/30/2023 LAURA MOSER Active Last Documented On 4 1:30PM ; [facility] Iron Deficiency Anemia 02/11/2022 TOM INMAN M.D. Active Last Documented On 2 5:00PM ; [facility] Nonorganic Sleep Apnea Adult 05/21/2021 TOM LILLY M.D. Active Last Documented On 2 5:37PM ; [facility] Generalized Anxiety Disorder 02/05/2021 SCOOTER L MAURA DO Active Last Documented On 1 9:22AM ; [facility] Obesity Morbid 02/05/2021 SCOOTER Meagan SHAVERMAURA DO Ac tive Last Documented On 1 9:22AM ; [facility] Vitamin D Deficiency 05/24/2020 ARLEY HEATH MD Active Last Documented On 1 4:27PM ; [facility] Essential Hypertension 07/17/2015 CANDIS MANRIQUE MD Active Last Documented On 6 5:39PM ; [facility] Plan of Treatment Care Programs CHRONIC CARE [...] 11:36AM By ИВАН LILLY MD ; [facility] Sodium Bicarbonate 650 MG Oral Tablet 08/13/2023 Pro vider: Diagnosis: Last Documented On 08/13/2023 11:26AM By Marques MAGDALENO ; [facility] diazePAM 10 MG Oral Tablet 08/11/2023 Provider: TOM LILLY M.D. Diagnosis: Generalized anxi ety disorder TAKE 1 TABLET BY MOUTH THREE TIMES DAILY Last Documented On 08/11/2023 8:59AM By ИВАН LILLY MD ; [facility] amLODIPine Besylate 10 MG Oral Tablet 08/10/2023 Provider: TOM LILLY M.D. Diagnosis: Essential (prima ry) hypertension TAKE 1 TABLET BY MOUTH EVERY DAY Last Documented On 08/10/2023 9:13PM By ИВАН LILLY MD ; [facility] Jardiance 25 MG Oral Tablet 08/10/2023 Provider: TOM LILLY M.D. Diagnosis: Type 2 diabetes mellitus with hyperglycemia One tablet daily Last Documented On 08/10/2023 9:13PM By ИВАН LILLY MD ; [facility] Torsemide 10 MG Oral Tablet 08/09/2023 Provider: VIRGILIO SAENZ MD Diagnosis: Last Documented On 08/13/2023 11:26AM By Marques MAGDALENO ; [facility] metOLazone 2.5 MG Oral Tablet 08/08/2023 Provider: HARPER FISHER MD Diagnosis: Last Documented On 08/13/2023 11:26AM By Marques MAGDALENO ; [facility] BD Pen Needle Mini U/F 31G X 5 MM Miscellaneous 08/07/2023 Provider: TOM Diaz Diagnosis: Type 2 diabetes mellitus without complications as directed Last Documented On 08/07/2023 11:48AM By ИВАН LILLY MD ; [facility] Basaglar KwikPen 100 UNIT/ML Subcutaneous Solution Pen-injector 07/31/2023 Provider: TOM Ma Diagnosis: 40 u at night Last Documented On 4 8:36AM By TRINH TEJADA ; [facility] FeroSul 325 (65 Fe) MG Oral Tablet 07/31/2023 Provid er: Diagnosis: Last Documented On 4 8:36AM By TRINH TEJADA ; [facility] HumaLOG KwikPen 100 UNIT/ML Subcutaneous Solution Pen-injector 07/28/2023 Provider: TOM Ma Diagnosis: 14 u with meals Last Documented On 4 8:36AM By TRINH TEJADA ; [facility] Folic Acid 1 MG Oral Tablet 05/19/2023 Provider: TOM LILLY M.D. Diagnosis: Deficiency of ot her specified B group vitamins One tablet daily Last Documented On 4 8:36AM By TRINH TEJADA ; [facility] Dexcom G6 Transmitter Miscellaneous 03/03/2023 Provider: TOM LILLY M.D. Diagnosis: Type 2 diabetes mellitus with hyperglycemia USE DIRECTED TO CHECK BLOOD SUGAR Last Documented On 4 8:36AM By TRINH TEJADA ; [facility] Veltassa 8.4 GM Oral Packet 12/10/2022 Provider: Diagnosis: once daily Last Documented On 4 8:36AM By TRINH TEJADA ; [facility] Aspirin Adult Low Dose 81 MG Oral Tablet Delayed Relea se 12/10/2022 Provider: Diagnosis: Last Documented On 4 8:36AM By TRINH TEJADA ; [facility] Global Ease Inject Pen [...] 4 8:36AM By TRINH TEJADA ; [facility] Vitamin B12 1000 MCG Oral Tablet 10/09/2022 Provider: TOM LILLY M.D. Diagnosis: Deficiency of ot her specified B group vitamins One tablet daily Last Documented On 4 8:36AM By TRINH TEJADA ; [facility] Medications Administered Includes: Administered [...] Last Documented On 4 11:14AM ; [facility] Floxin Otic Allergy 07/26/2014 Active Last Documented On 4 11:14AM ; [facility] Farxiga Intolerance yeast vaginitis 12/24/2021 A ctive Last Documented On 4 11:14AM ; [facility] Demerol Allergy 07/26/2014 Active Last Documented On 4 11:14AM ; [facility] Cipro Allergy 07/26/2014 Active Last Documented On 4 11:14AM ; [facility] cephalexin Allergy 07/26/2014 Active Last Documented On 4 11:14AM ; [facility] Encounters Encounter Provider Location Date Check-In Time Check-Out Time Diagnosis [Patient Encounter] TOM LILLY M.D. 04/15/2024 4:37PM 11:59PM Insurance Includes: Active Insurance Policies Plan Name Member ID Group # Subscriber Relationship Effect reynaldo Dates 1 - [facility] [id number] FAIZAN Webster 03/10/2023 - Unknown 2 - MEDICARE PART A CLAIMS/NGS [id number] FAIZAN Webster Clinical Notes Includes: Clinical Notes from this encounter No Clinical Notes Recorded
--- OUTSIDE RECORDS SUMMARY | 2025-02-25 08:42 | XMS_ITS | Clinical Summary ---
Author Organization [facility] [place] [facility] [employer] [facility] Address [address] [address] Phone Care Team Providers Care Tailer In Name Role Phone Matias Warren MD Primary Care Provider [phone] Allergies Active Allergy Reactions Criticality Noted Date [...] time each day Active ergocalciferol 1.25 MG (97036 UT) capsule Take 50,000 Units by mouth [...] 8.6(A) 8.7 - 10.7 mg/dL eGFR Non-Afr [place] 25(L) Hemoglobin A1C 8.5(A) 4.0 - 6.0 Glucose, UA 4+ mg/dL Bilirubin, UA Negative Ketones, UA Negative Urine Specific [place] 1.015 Blood, UA 3+ Randy/ul pH, UA [...] to Health Maintenance Insurance Medicare [facility] Care Teams Tailer In Relationship Specialty Start Date End Date Matias Warren MD [address] [place] [id number] PCP - General Internal Medicine 07/24/23
--- OUTSIDE RECORDS SUMMARY | 2025-02-25 08:43 | XMS_ITS | Clinical Summary ---
Author Organization [facility] Address [address] [place] [address] Phone Care Team Providers Care Weblogic Developer Name Role Phone ИВАН LILLY MD Primary Care Provider [phone] MAXX Melgar, TOM Acosta [phone] Reason for Visit and Chief Complaint WOUND CHECK - EST PATIENT Problems Includes: Problems addressed during this encounter and other active Problems All Visits Onset Date Resolved Date Provider Condition S tatus Diabetes Mellitus Type 2 07/14/2023 TOM LILLY M.D. Active Last Documented On 4 4:48PM ; [facility] Chronic Kidney Disease Stage 2 Due To Type 2 Diabetes Mellitus 06/30/2023 LAURA FONTENOT RN AVA B C Active Last Documented On 4 1:29PM ; [facility] Hyperlipidemia Due To Type 2 Diabetes Mellitus 06/30/2023 LAURA FONTENOT RN AVA BC Activ e Last Documented On 4 1:31PM ; [facility] Note: elevated crp Venous Insufficiency 06/30/2023 LAURA MOSER Active Last Documented On 4 1:30PM ; [facility] Iron Deficiency Anemia 02/11/2022 TOM INMAN M.D. Active Last Documented On 2 5:00PM ; [facility] Nonorganic Sleep Apnea Adult 05/21/2021 TOM LILLY M.D. Active Last Documented On 2 5:37PM ; [facility] Generalized Anxiety Disorder 02/05/2021 SCOOTER L MAURA DO Active Last Documented On 1 9:22AM ; [facility] Obesity Morbid 02/05/2021 SCOOTERJose LORENZO DO Ac tive Last Documented On 1 9:22AM ; [facility] Vitamin D Deficiency 05/24/2020 ARLEY HEATH MD Active Last Documented On 1 4:27PM ; [facility] Essential Hypertension 07/17/2015 CANDIS MANRIQUE MD Active Last Documented On 6 5:39PM ; [facility] Plan of Treatment Care Programs CHRONIC CARE MANAGMENT Last Documented On 1 11:07AM ; [facility] Assessments Includes: Assessments from this encounter No Assessments Recorded Medical Equipment - Implanted Devices Includes: Current Devices No Medical Equipment Recorded Medications Includes: Medications discussed during this encounter and other current Medications Current Medications (continue as prescribed) Diflucan 150 MG Oral Tablet 08/14/2023 Provider: TOM LILLY M.D. Diagnosis: One tablet daily Last Documented On 08/14/2023 11:36AM By ИВАН LILLY MD ; [facility] Sodium Bicarbonate 650 MG Oral Tablet 08/13/2023 Pro vider: Diagnosis: Last Documented On 08/13/2023 11:26AM By Marques Peters Jose ; [facility] diazePAM 10 MG Oral Tablet 08/11/2023 Provider: TOM LILLY M.D. Diagnosis: Generalized anxi ety disorder TAKE 1 TABLET BY MOUTH THREE TIMES DAILY Last Documented On 08/11/2023 8:59AM By ИВАН LILLY MD ; [facility] amLODIPine Besylate 10 MG Oral Tablet 08/10/2023 Provider: TOM LILLY M.D. Diagnosis: Essential (prima ry) hypertension TAKE 1 TABLET BY MOUTH EVERY DAY Last Documented On 08/10/2023 9:13PM By ИВАН LILLY MD ; [facility] Jardiance 25 MG Oral Tablet 08/10/2023 Provider: TOM LILLY M.D. Diagnosis: Type 2 diabetes mellitus with hyperglycemia One tablet daily Last Documented On 08/10/2023 9:13PM By ИВАН LILLY MD ; [facility] Torsemide 10 MG Oral Tablet 08/09/2023 Provider: VIRGILIO SAENZ MD Diagnosis: Last Documented On 08/13/2023 11:26AM By Marques MAGDALENO ; [facility] metOLazone 2.5 MG Oral Tablet 08/08/2023 Provider: HARPER FISHER MD Diagnosis: Last Documented On 08/13/2023 11:26AM By Marques MAGDALENO ; [facility] BD Pen Needle Mini U/F 31G X 5 MM Miscellaneous 08/07/2023 Provider: TOM Diaz Diagnosis: Type 2 diabetes mellitus without complications as directed Last Documented On 08/07/2023 11:48AM By ИВАН LILLY MD ; [facility] Basaglar KwikPen 100 UNIT/ML Subcutaneous Solution Pen-injector 07/31/2023 Provider: TOM Ma Diagnosis: 40 u at night Last Documented On 4 8:36AM By TRINH TEJADA ; [facility] FeroSul 325 (65 Fe) MG Oral Tablet 07/31/2023 Provid er: Diagnosis: Last Documented On 4 8:36AM By TRINH TEJADA ; [facility] HumaLOG KwikPen 100 UNIT/ML Subcutaneous Solution Pen-injector 07/28/2023 Provider: TOM Ma Diagnosis: 14 u with meals Last Documented On 4 8:36AM By TRINH TEJADA ; [facility] Folic Acid 1 MG Oral Tablet 05/19/2023 Provider: TOM LILLY M.D. Diagnosis: Deficiency of ot her specified B group vitamins One tablet daily Last Documented On 4 8:36AM By TRINH TEJADA ; [facility] Dexcom G6 Transmitter Miscellaneous 03/03/2023 Provider: TOM LILLY M.D. Diagnosis: Type 2 diabetes mellitus with hyperglycemia USE DIRECTED TO CHECK BLOOD SUGAR Last Documented On 4 8:36AM By TRINH TEJADA ; [facility] Veltassa 8.4 GM Oral Packet 12/10/2022 Provider: Diagnosis: once daily Last Documented On 4 8:36AM By TRINH TEAJDA ; [facility] Aspirin Adult Low Dose 81 MG Oral Tablet Delayed Relea se 12/10/2022 Provider: Diagnosis: Last Documented On 4 8:36AM By TRINH TEJADA ; [facility] Global Ease Inject Pen Needl es 31G X 5 MM Miscellaneous 11/08/2022 Provider: TONY [place] Diagnosis: DIRECTED TEST THREE TIMES DAILY Last Documented On 4 8:36AM By TRINH TEJADA ; [facility] Vitamin D3 125 MCG (5000 UT) Oral Capsule 10/09/2022 Provider: TOM LILLY M.D. Diagnosis: Vitamin D defici ency, unspecified One tablet daily Last Documented On 4 8:36AM By TRINH TEJADA ; [facility] Vitamin B12 1000 MCG Oral Tablet 10/09/2022 Provider: TOM LILLY M.D. Diagnosis: Deficiency of ot her specified B group vitamins One tablet daily Last Documented On 4 8:36AM By TRINH TEJADA ; [facility] Medications Administered Includes: Administered Medications from [...] tive Last Documented On 4 11:14AM ; [facility] Floxin Otic Allergy 07/26/2014 Active Last Documented On 4 11:14AM ; [facility] Farxiga Intolerance yeast vaginitis 12/24/2021 A ctive Last Documented On 4 11:14AM ; [facility] Demerol Allergy 07/26/2014 Active Last Documented On 4 11:14AM ; [facility] Cipro Allergy 07/26/2014 Active Last Documented On 4 11:14AM ; [facility] cephalexin Allergy 07/26/2014 Active Last Documented On 4 11:14AM ; [facility] Insurance Includes: Active Insurance Policies Plan Name Member ID Group # Subscriber Relationship Effect reynaldo Dates 1 - [facility] [id number] FAIZAN Webster 03/10/2023 - Unknown 2 - MEDICARE PART A CLAIMS/NGS [id number] FAIZAN Webster Clinical Notes Includes: Clinical Notes from this encounter No Clinical Notes Recorded
--- OUTSIDE RECORDS SUMMARY | 2025-02-25 08:43 | XMS_ITS | Clinical Summary ---
Author Organization [facility] Address [address] [place] [address] Phone Care Team Providers Care Cloth Printer Name Role Phone ИВАН LILLY MD Primary Care Provider [phone] MAXX Melgar, TOM Acosta [phone] Reason for Visit and Chief Complaint WOUND CHECK - NEW PATIENT Problems Includes: Problems addressed during this encounter and other active Problems All Visits Onset Date Resolved Date Provider Condition S tatus Diabetes Mellitus Type 2 07/14/2023 TOM LILLY M.D. Active Last Documented On 4 4:48PM ; [facility] Chronic Kidney Disease Stage 2 Due To Type 2 Diabetes Mellitus 06/30/2023 LAURA JOHN B C Active Last Documented On 4 1:29PM ; [facility] Hyperlipidemia Due To Type 2 Diabetes Mellitus 06/30/2023 LAURA MOSER Activ e Last Documented On 4 1:31PM ; [facility] Note: elevated crp Venous Insufficiency 06/30/2023 LAURA MOSER Active Last Documented On 4 1:30PM ; [facility] Iron Deficiency Anemia 02/11/2022 TOM INMAN M.D. Active Last Documented On 2 5:00PM ; [facility] Nonorganic Sleep Apnea Adult 05/21/2021 TOM LILLY M.D. Active Last Documented On 2 5:37PM ; [facility] Generalized Anxiety Disorder 02/05/2021 SCOOTER L MAURA DO Active Last Documented On 1 9:22AM ; [facility] Obesity Morbid 02/05/2021 SCOOTER Meagan SHAVERMAURA DO Ac tive Last Documented On 1 9:22AM ; [facility] Vitamin D Deficiency 05/24/2020 ARLEY HEATH MD Active Last Documented On 1 4:27PM ; [facility] Essential Hypertension 07/17/2015 CANDIS MANRIQUE MD Active Last Documented On 6 5:39PM ; [facility] Plan of Treatment Care Programs CHRONIC CARE MANAGMENT Last Documented On 1 11:07AM ; [facility] Assessments Includes: Assessments from this encounter No Assessments Recorded Medical Equipment - Implanted Devices Includes: Current Devices No Medical Equipment Recorded Medications Includes: Medications discussed during this encounter and other current Medications Current Medications (continue as prescribed) Diflucan 150 MG Oral Tablet 08/14/2023 Provider: TOM LILLY M.D. Diagnosis: One tablet daily Last Documented On 08/14/2023 11:36AM By ИВАН LILLY MD ; [facility] Sodium Bicarbonate 650 MG Oral Tablet 08/13/2023 Pro vider: Diagnosis: Last Documented On 08/13/2023 11:26AM By Marques MAGDALENO ; [facility] diazePAM 10 MG Oral Tablet 08/11/2023 Provider: TOM LILLY M.D. Diagnosis: Generalized anxi ety disorder TAKE 1 TABLET BY MOUTH THREE TIMES DAILY Last Documented On 08/11/2023 8:59AM By ИВАН LILLY MD ; [facility] amLODIPine Besylate 10 MG Oral Tablet 08/10/2023 Provider: TOM LILLY M.D. Diagnosis: Essential (prima ry) hypertension TAKE 1 TABLET BY MOUTH EVERY DAY Last Documented On 08/10/2023 9:13PM By ИВАН LILLY MD ; [facility] Jardiance 25 MG Oral Tablet 08/10/2023 Provider: TOM LILLY M.D. Diagnosis: Type 2 diabetes mellitus with hyperglycemia One tablet daily Last Documented On 08/10/2023 9:13PM By ИВАН LILLY MD ; [facility] Torsemide 10 MG Oral Tablet 08/09/2023 Provider: VIRGILIO SAENZ MD Diagnosis: Last Documented On 08/13/2023 11:26AM By Marques MAGDALENO ; [facility] metOLazone 2.5 MG Oral Tablet 08/08/2023 Provider: HARPER FISHER MD Diagnosis: Last Documented On 08/13/2023 11:26AM By Marques MAGDALENO ; [facility] BD Pen Needle Mini U/F 31G X 5 MM Miscellaneous 08/07/2023 Provider: TOM Diaz Diagnosis: Type 2 diabetes mellitus without complications as directed Last Documented On 08/07/2023 11:48AM By ИВАН LILLY MD ; [facility] Basaglar KwikPen 100 UNIT/ML Subcutaneous Solution Pen-injector 07/31/2023 Provider: TOM Ma Diagnosis: 40 u at night Last Documented On 4 8:36AM By TRINH TEJADA ; [facility] FeroSul 325 (65 Fe) MG Oral Tablet 07/31/2023 Provid er: Diagnosis: Last Documented On 4 8:36AM By TRINH TEJADA ; [facility] HumaLOG KwikPen 100 UNIT/ML Subcutaneous Solution Pen-injector 07/28/2023 Provider: TOM Ma Diagnosis: 14 u with meals Last Documented On 4 8:36AM By TRINH TEJADA ; [facility] Folic Acid 1 MG Oral Tablet 05/19/2023 Provider: TOM LILLY M.D. Diagnosis: Deficiency of ot her specified B group vitamins One tablet daily Last Documented On 4 8:36AM By TRINH TEJADA ; [facility] Dexcom G6 Transmitter Miscellaneous 03/03/2023 Provider: TOM LILLY M.D. Diagnosis: Type 2 diabetes mellitus with hyperglycemia USE DIRECTED TO CHECK BLOOD SUGAR Last Documented On 4 8:36AM By TRINH TEJADA ; [facility] Veltassa 8.4 GM Oral Packet 12/10/2022 Provider: Diagnosis: once daily Last Documented On 4 8:36AM By TRINH TEJADA ; [facility] Aspirin Adult Low Dose 81 MG Oral Tablet Delayed Relea se 12/10/2022 Provider: Diagnosis: Last Documented On 4 8:36AM By TRINH TEJADA ; [facility] Global Ease Inject Pen Needl es 31G X 5 MM Miscellaneous 11/08/2022 Provider: TONY [place] Diagnosis: DIRECTED TEST THREE TIMES DAILY Last Documented On 4 8:36AM By TRINH TEJADA ; [facility] Vitamin D3 125 MCG (5000 UT) Oral Capsule 10/09/2022 Provider: TOM LILLY M.D. Diagnosis: Vitamin D defici ency, unspecified One tablet daily Last Documented On 4 8:36AM By TRINH TEJADA ; [facility] Vitamin B12 1000 MCG Oral Tablet 10/09/2022 Provider: TOM LILLY M.D. Diagnosis: Deficiency of ot her specified B group vitamins One tablet daily Last Documented On 4 8:36AM By TRINH TEJADA ; [facility] Medications Administered Includes: Administered Medications from [...] tive Last Documented On 4 11:14AM ; [facility] Floxin Otic Allergy 07/26/2014 Active Last Documented On 4 11:14AM ; [facility] Farxiga Intolerance yeast vaginitis 12/24/2021 A ctive Last Documented On 4 11:14AM ; [facility] Demerol Allergy 07/26/2014 Active Last Documented On 4 11:14AM ; [facility] Cipro Allergy 07/26/2014 Active Last Documented On 4 11:14AM ; [facility] cephalexin Allergy 07/26/2014 Active Last Documented On 4 11:14AM ; [facility] Encounters Encounter Provider Location Date Check-In Time Check- Out Time Diagnosis WOUND CHECK - NEW PATIENT JULIANO MARTINEZ DO [facility] 4 2:00PM 2:55PM Insurance Includes: Active Insurance Policies Plan Name Member ID Group # Subscriber Relationship Effect reynaldo Dates 1 - [facility] [id number] FAIZAN Webster 03/10/2023 - Unknown 2 - MEDICARE PART A CLAIMS/NGS [id number] FAIZAN Webster Clinical Notes Includes: Clinical Notes from this encounter No Clinical Notes Recorded
--- OUTSIDE RECORDS SUMMARY | 2025-02-25 08:43 | XMS_ITS | Clinical Summary ---
Author Organization [facility] Annemarie Jaime Address [address] [place] [address] Care Team Providers Care Gis Mapping Technician Name Role Phone Matias Warren MD Primary Care Provider [phone] Allergies Active Allergy Reactions Criticality Noted Date Comments Cephalexin Hives,Rash High 12/21/2009 Other Reaction(s): Unknown Patient received ceftriaxone in May 2024 Ciprofloxacin Hives High 12/21/2009 Other Reaction(s): Unknown Morphine Hives High 12/21/2009 Other Reaction(s): Unknown Medications amLODIPine (NORVASC) 10 mg tablet Take 1 Tablet (10 mg) by mouth daily. 90 Tablet 12/20/2023 12:45 PM CDT 12/18/19 24 Active torsemide (DEMADEX) 10 mg Tablet Take 1 tablet by mouth daily 90 Tablet 04/15/2024 6:48 PM MANAGER ANALYSIS 02/18/20 24 Active Insulin Syringe-Needle U-100 (BD Insulin Syringe Ultra-Fine) 1 mL 31 gauge x 5/16 Syringe USE FOR INSULIN INJECTIONS 200 Each 04/12/2024 3:26 PM MANAGER ANALYSIS 04/09/19 25 Active ferrous sulfate 325 mg (65 mg iron) tablet Take 1 Tablet (325 mg) by mouth daily. 100 Tablet 04/12/2024 3:26 PM MANAGER ANALYSIS 04/09/19 25 Active patiromer calcium sorbitex (Veltassa) [...] daily 30 Packet 11 04/12/2024 3:26 PM MANAGER ANALYSIS 04/09/19 25 Active amLODIPine (NORVASC) 10 mg tablet Take 1 Tablet (10 mg) by mouth daily. 90 Tablet 1 01/03/2025 5:11 PM CDT 06/01/19 25 Active carvediloL (COREG) 25 mg tablet Take 1 Tablet (25 mg) by mouth 2 times daily. 180 Tablet 06/28/2024 6:49 PM CDT 06/25/19 25 Active diazePAM (VALIUM) 10 mg tablet Take 1 Tablet (10 mg) by mouth 3 times daily as needed for anxiety. 84 Tablet 08/23/2024 7:32 PM CDT 08/24/19 25 Active insulin lispro (HumaLOG,ADMELO G) 100 unit/mL pen syringe INJECT 14 UNITS WITH MEALS 15 mL 2 08/23/2024 7:32 PM CDT 08/24/19 25 Active diazePAM (VALIUM) 10 mg tablet Take 1 tablet by mouth three times daily as needed for anxiety 84 Tablet 09/20/2024 7:11 PM CDT 09/21/19 25 Active folic acid (FOLVITE) 1 mg tablet Take 1 Tablet (1 mg) by mouth daily. 90 Tablet 09/25/2024 2:29 PM CDT 09/24/19 25 Active Insulin [place], Disposable, (BD Ultra-Fine Short Pen Needle) 31 gauge x 5/16 Needle Use with Insulin pen. 100 Each 3 11/22/2024 6:08 PM CDT 09/24/19 25 Active insulin glargine (Lantus Solostar U-100 Insulin) 100 unit/mL pen syringe Inject 60 units under the skin once daily 15 mL 2 10/15/2024 6:00 PM CDT 10/16/19 25 Active Blood-Glucose Sensor (Dexcom G6 Sensor) Device CHANGE DIRECTED. 3 Each 10/18/2024 3:13 PM CDT 10/17/19 25 Active Blood-Glucose Transmitter (Dexcom G6 Transmitter) Device CHANGE DIRECTED. 1 Each 10/18/2024 3:13 PM CDT 10/17/19 25 Active metOLazone (ZAROXOLYN) 2.5 mg tablet Take 1 Tablet (2.5 mg) by mouth 1 time daily as needed for swelling. 90 Tablet 11/10/2024 5:24 PM CDT 10/19/19 25 Active ergocalciferol (Vitamin D2) 50,000 unit capsule Take 1 Capsule (50,000 Units) by mouth every 7 days. 13 Capsule 11/03/2024 5:02 PM CDT 10/19/19 25 Active torsemide (DEMADEX) 20 mg tablet Take 1 Tablet (20 mg) by mouth daily with 10 mg to equal 30 mg total daily dose. 30 Tablet 11/03/2024 5:02 PM CDT 11/02/19 25 Active empagliflozin (JARDIANCE) 25 mg tablet Take 1 Tablet (25 mg) by mouth daily in the morning. 90 Tablet 11/10/2024 5:24 PM CDT 11/09/19 25 Active diazePAM (VALIUM) 10 mg tablet Take 1 Tablet (10 mg) by mouth 3 times daily as needed FOR ANXIETY. 84 Tablet 11/15/2024 2:12 PM CDT 11/16/19 25 Active carvediloL (COREG) 25 mg tablet Take 1 Tablet (25 mg) by mouth 2 times daily. 180 Tablet 12/13/2024 2:12 PM CDT 12/14/19 25 Active diazePAM (VALIUM) 10 mg tablet Take 1 tablet by mouth three times daily as needed for anxiety 84 Tablet 12/13/2024 2:12 PM CDT 12/14/19 25 Active diazePAM (VALIUM) 10 mg tablet Take 1 Tablet (10 mg) by mouth 3 times daily as needed for anxiety. 84 Tablet 01/10/2025 4:51 PM MANAGER ANALYSIS 01/11/20 25 Active diazePAM (VALIUM) 10 mg tablet Take one tablet (10 mg) 3 times daily as needed for anxiety 84 Tablet 02/07/2025 1:08 PM MANAGER ANALYSIS 02/08/20 25 Active folic acid (FOLVITE) 1 mg tablet Take one tablet Oral Daily 90 Tablet 1 02/07/2025 1:08 PM MANAGER ANALYSIS 02/08/20 25 Active insulin lispro (HumaLOG,ADMELO G) 100 unit/mL pen syringe INJECT 14 UNITS WITH MEALS 15 mL 2 02/07/2025 1:08 PM MANAGER ANALYSIS 02/08/20 25 Active insulin glargine (Lantus Solostar U-100 Insulin) 100 unit/mL pen syringe Inject 60 Units Subcutaneous Daily 15 mL 2 02/07/2025 1:08 PM MANAGER ANALYSIS 02/08/20 25 Active torsemide (DEMADEX) 20 mg tablet Take 2 tablets (40 mg) Oral Daily 60 Tablet 2 02/07/2025 1:08 PM MANAGER ANALYSIS 02/08/20 25 Active ergocalciferol (Vitamin D2) 50,000 unit capsule Take 1 Capsule (50,000 Units) by mouth every 7 days. 13 Capsule 1 02/07/2025 1:08 PM MANAGER ANALYSIS 02/08/20 25 Active torsemide (DEMADEX) 20 mg tablet Take 2 tablets by mouth Daily 60 Tablet 1 01/03/2025 5:11 PM CDT 11/24/19 025 Discontin ued(Reord er) Active Problems Problem Noted Date Diagnosed Date Chronic anemia 11/10/2024 Iron deficiency anemia due to chronic blood loss 11/10/2024 Encounters Date Type Department Care Team Description 02/22/2025 External Device Data [facility] ABSTRACTION Provider, Abstract 12/28/2024 External Device Data [facility] ABSTRACTION Provider, Abstract 12/20/2024 Telephone [facility] Oncology and Hematology [facility] [address] [place] [address] Hector Krishna MD labs for appt 12/07/2024 Telephone [facility] Oncology and Hematology [facility] [address] [place] [address] Hector Krishna MD Side Effects from Last 3 Months Family History Medical [...] d or Tdap) 10/20/2024 10/20/2014, 10/10/2014 Insurance [employer] Member Subscriber Plan / Payer (Ef fective 2024-Present) Name:Joann Tavares Relation to Subscriber:Self Name:Chaitanya Joann Zimmerman Subscriber ID:Not on file Payer ID:Not on file Type:Not on file Address: [facility] Guarantor: Joann Tavares Account Type Relation to Patient Date of Phone Billing Address Personal/Family Self 1975 [address] [place] [address] [employer] [employer] Care Teams Gis Mapping Technician Relationship Specialty Start Date End Date Matias Warren MD [address] [place] [phone] PCP - General Family Practice 11/01/24
--- OUTSIDE RECORDS SUMMARY | 2025-02-25 08:43 | XMS_ITS ---
Author Organization [facility] Address [address] [place] [address] Phone Care Team Providers Care Tub Puller Name Role Phone ИВАН LILLY MD Primary Care Provider [phone] MAXX Melgar, TOM Acosta [phone] Reason for Referral Date Encounter Description Provider Reason for Referral 02/22/20 INITIAL APPOINTMENT FOR DIABETIC PATIENT ANGELICASaba ARREAGA COPPER ETCHER-C Request Consultation By Ct Technologist Problems Includes: Active, inactive, and resolved Problems All Visits Onset Date Resolved Date Provider Condition S tatus Diabetes Mellitus Type 2 07/14/2023 TOM LILLY M.D. Active Last Documented On 4 4:48PM ; [facility] Chronic Kidney Disease Stage 2 Due To Type 2 Diabetes Mellitus 06/30/2023 LAURA JOHN B C Active Last Documented On 4 1:29PM ; [facility] Hyperlipidemia Due To Type 2 Diabetes Mellitus 06/30/2023 LAURA JOHN BC Activ e Last Documented On 4 1:31PM ; [facility] Note: elevated crp Kidney Atrophy Left 06/30/2023 TOM LILLY M.D. Inactive Last Documented On 4 1:28PM ; [facility] Venous Insufficiency 06/30/2023 LAURA MOSER Active Last Documented On 4 1:30PM ; [facility] Iron Deficiency Anemia 02/11/2022 TOM INMAN M.D. Active Last Documented On 2 5:00PM ; [facility] Nonorganic Sleep Apnea Adult 05/21/2021 TOM LILLY M.D. Active Last Documented On 2 5:37PM ; [facility] Migraine Headache 03/12/2021 TOM Ma Inactive Last Documented On 07/10/2021 4:20PM ; [facility] Note: Vestibular migraines Generalized Anxiety Disorder 02/05/2021 THAO L MAURA DO Active Last Documented On 1 9:22AM ; [facility] Hyperlipidemia 02/05/2021 TOM LILLY M.D. Inactive Last Documented On 2 5:27PM ; [facility] Obesity Morbid 02/05/2021 THAO L MAURA DO Ac tive Last Documented On 1 9:22AM ; [facility] Proteinuria 02/05/2021 TOM LILLY M.D. Tara ctive Last Documented On 2 5:31PM ; [facility] Allergic Rhinitis Due To Mold 07/13/2020 02/05/2021 THAO L MAURA DO Resolved Last Documented On 1 9:16AM ; [facility] Allergy To Certain Foods 05/24/2020 02/05/2021 THAO L MCCO NKEY DO Resolved Last Documented On 1 9:16AM ; [facility] Iron Deficiency Anemia 05/24/2020 02/05/2021 TOM INMAN M.D. 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 02/05/2021 THAO L MAURA DO Resolved Last Documented On 1 9:17AM ; [facility] Vitamin D Deficiency 05/24/2020 ARLEY HEATH MD Active Last Documented On 1 4:27PM ; [facility] Diabetes Mellitus Type 2 - Uncomplicated, Uncontrolled 08/19/2019 LAURA FONTENOT RN [facility] P BC Inactive Last Documented On 4 1:28PM ; [facility] Vitamin B12 deficiency anemia, unspecified 04/18/2019 TOM S MAXX Melgar Inactive Last Documented On 2 5:17PM ; [facility] Other disorders of vestibula r function, bilateral 04/18/2019 02/05/2021 THAO L MAURA DO Resolved Last Documented On 1 9:17AM ; [facility] Diabetes Mellitus Type 2 wit h Hyperglycemia 04/18/2019 02/05/2021 THAO L MAURA DO Resolved Last Documented On 1 9:16AM ; [facility] Excessive Bleeding During Pe riod (Menorrhagia) 04/18/2019 02/05/2021 THAO L MAURA DO Resolved Last Documented On 1 9:16AM ; [facility] Meniere's Disease Both Ears 04/18/2019 TOM Yashira LILLY M.D. 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 03/24/2019 02/05/2021 THAO L MAURA DO Resolved Last Documented On 1 9:17AM ; [facility] Common Migraine Without Aura Without Intractable Migraine 03/24/2019 TOM S MAXX Melgar Inacti ve Last Documented On 2 5:17PM ; [facility] Polycystic Ovarian Syndrome (Pcos) 03/24/2019 L EONCIO S MAXX M.Anil Inactive Last Documented On 2 5:31PM ; [facility] Allergic Rhinitis 03/24/2019 TOM S MAXX MJoe Ma Inactive Last Documented On 2 5:31PM ; [facility] Organic Sleep Apnea 03/24/2019 TOM S MAXX M.Anil Inactive Last Documented On 2 4:20PM ; [facility] Osteoarthritis Primary Generalized 07/17/2015 L EONCIO S MAXX M.Anil Inactive Last Documented On 2 5:31PM ; [facility] Essential Hypertension 07/17/2015 CANDIS MANRIQUE MD Active Last Documented On 6 5:39PM ; [facility] Breast Fibrocystic Disease 07/26/2014 TOM LILLY M.D. Inactive Last Documented On 05/21/2021 5:31PM ; [facility] Note: Unchanged Excessive Bleeding During Period (Menorrhagia) 07/26/2014 02/05/2021 THAO L MAURA DO Resolved Last Documented On 02/05/2021 9:16AM ; [facility] Note: Unchanged Diabetes Mellitus Type 2 with Hyperglycemia 07/16/2009 02/05/2021 THAO LORENZO DO Resolved Last Documented On 1 9:16AM ; [facility] Plan of Treatment Findings Encounter Date Continue current medication CHECK UP with HO LILLY M.D. 08/13/2023 Last Documented On 4 1:34PM ; [facility] Modify drug dosage Inc Jardi ance to 25 mg a day Inc Basaglar to 30 u 2 x a day CHECK UP with TOM LILLY M.D. 08/13/2023 Last Documented On 4 1:34PM ; [facility] Ordered patient to call if stefano roldan develops CHECK UP with TOM LILLY M.D. 08/13/2023 Last Documented On 4 1:34PM ; [facility] Ordered return to the clinic if condition worsens or new symptoms arise CHECK UP with TOM LILLY M.D. 08/13/2023 Last Documented On 4 1:34PM ; [facility] Ordered follow-up visit with PCP ELIS Rhodes FOLLOW UP EXAM with TRINH HANSEN DELICATESSEN MANAGER-FPA, COPPER ETCHER-BC 07/31/2023 Last Documented On 4 8:36AM ; [facility] Continue current medication Levemir at 15 u 2 x a day CHECK UP with TOM LILLY M.D. 07/14/2023 Last Documented On 4 4:54PM ; [facility] Modify drug dosage Torsemide to 10 mg a day CHECK UP with TOM LILLY M.D. 07/14/2023 Last Documented On 4 4:54PM ; [facility] Ordered basic metabolic pane l ordered in outside facility CHECK UP with TOM LILLY M.D. 07/14/2023 Last Documented On 4 4:54PM ; [facility] Ordered CBC with differentia l ordered in outside facility CHECK UP with TOM LILLY M.D. 07/14/2023 Last Documented On 4 4:54PM ; [facility] Ordered iron studies at an [facility] facility CHECK UP with TOM LILLY M.D. 07/14/2023 Last Documented On 4 4:54PM ; [facility] Ordered patient to call if stefano roldan develops CHECK UP with TOM LILLY M.D. 07/14/2023 Last Documented On 4 4:54PM ; [facility] Ordered return to the clinic if condition worsens or new symptoms arise CHECK UP with TOM LILLY M.D. 07/14/2023 Last Documented On 4 4:54PM ; [facility] Plan - start medication Veno gale 200 mg IV every week x 5 doses CHECK UP with TOM LILLY M.D. 07/14/2023 Last Documented On 4 4:54PM ; [facility] Ordered Clinical summary pro vided to patient [facility]OMAN - NEW PATIENT with LAURA FONTENOT RN [facility] 06/30/2023 Last Documented On 4 2:20PM ; [facility] Ordered weight loss diet WELL WOMAN - NE W PATIENT with LAURA FONTENOT RN [facility] 06/30/2023 Last Documented On 4 2:20PM ; [facility] Continue current medication CHECK UP with HO LILLY M.D. 06/09/2023 Last Documented On 4 5:01PM ; [facility] Monitor Blood Pressure at home CHECK UP with ИВАН LILLY M.D. 06/09/2023 Last Documented On 4 5:01PM ; [facility] Monitor Blood Sugar Check Bl ood Sugar readings at home CHECK UP with TOM LILLY M.D. 06/09/2023 Last Documented On 4 5:01PM ; [facility] Ordered basic metabolic pane l ordered in outside facility CHECK UP with TOM LILLY M.D. 06/09/2023 Last Documented On 4 5:01PM ; [facility] Ordered blood hemoglobin A1c ordered in outside facility CHECK UP with TOM LILLY M.D. 06/09/2023 Last Documented On 4 5:01PM ; [facility] Ordered CBC with differentia l ordered in outside facility CHECK UP with TOM LILLY M.D. 06/09/2023 Last Documented On 4 5:01PM ; [facility] Ordered folate in serum orde red in outside facility CHECK UP with TOM LILLY M.D. 06/09/2023 Last Documented On 4 5:01PM ; [facility] Ordered [facility] CHECK UP with TOM LILLY M.D. 06/09/2023 Last Documented On 4 5:01PM ; [facility] Ordered patient to call if stefano roldan develops CHECK UP with TOM LILLY M.D. 06/09/2023 Last Documented On 4 5:01PM ; [facility] Ordered return to the clinic if condition worsens or new symptoms arise CHECK UP with TOM LILLY M.D. 06/09/2023 Last Documented On 4 5:01PM ; [facility] Ordered serum vitamin B12 or dered in outside facility CHECK UP with TOM LILLY M.D. 06/09/2023 Last Documented On 4 5:01PM ; [facility] Continue current medication CHECK UP with HO LILLY M.D. 04/02/2023 Last Documented On 4 5:05PM ; [facility] Modify drug dosage Vit D at 50,000 u 2 x a week CHECK UP with TOM LILLY M.D. 04/02/2023 Last Documented On 4 5:05PM ; [facility] Ordered patient to call if p roblem develops CHECK UP with TOM LILLY M.D. 04/02/2023 Last Documented On 4 5:05PM ; [facility] Ordered return to the clinic if condition worsens or new symptoms arise CHECK UP with TOM LILLY M.D. 04/02/2023 Last Documented On 4 5:05PM ; [facility] Plan - start medication hydr alazine at 10 mg 2 x a day Levemir at 20 - 30 u 2 x a day CHECK UP with TOM LILLY M.D. 04/02/2023 Last Documented On 4 5:05PM ; [facility] Continue current medication CHECK UP with HO LILLY M.D. 02/12/2023 Last Documented On 3 5:12PM ; [facility] Modify drug dosage Levemir a t 20 u 2 x a day CHECK UP with TOM LILLY M.D. 02/12/2023 Last Documented On 3 5:12PM ; [facility] Ordered patient to call if p roblem develops CHECK UP with TOM LILLY M.D. 02/12/2023 Last Documented On 3 5:12PM ; [facility] Ordered return to the clinic if condition worsens or new symptoms arise CHECK UP with TOM LILLY M.D. 02/12/2023 Last Documented On 3 5:12PM ; [facility] Plan - start medication tria l of Ozempic at 0.25 once a week CHECK UP with TOM LILLY M.D. 02/12/2023 Last Documented On 3 5:12PM ; [facility] Continue current medication CHECK UP with HO LILLY M.D. 01/08/2023 Last Documented On 3 5:23PM ; [facility] Modify drug dosage Levemir t o 20 - 30 u at night CHECK UP with TOM LILLY M.D. 01/08/2023 Last Documented On 3 5:23PM ; [facility] Monitor Blood Pressure at home CHECK UP with ИВАН LILLY M.D. 01/08/2023 Last Documented On 3 5:23PM ; [facility] Monitor Blood Sugar Check Bl ood Sugar readings at home CHECK UP with TOM LILLY M.D. 01/08/2023 Last Documented On 3 5:23PM ; [facility] Ordered patient to call if p roblem develops CHECK UP with TOM LILLY M.D. 01/08/2023 Last Documented On 3 5:23PM ; [facility] Ordered return to the clinic if condition worsens or new symptoms arise CHECK UP with TOM LILLY M.D. 01/08/2023 Last Documented On 3 5:23PM ; [facility] Continue current medication CHECK UP with HO LILLY M.D. 12/10/2022 Last Documented On 3 5:21PM ; [facility] Ordered patient to call if p roblem develops CHECK UP with TOM LILLY M.D. 12/10/2022 Last Documented On 3 5:21PM ; [facility] Ordered return to the clinic if condition worsens or new symptoms arise CHECK UP with TOM LILLY M.D. 12/10/2022 Last Documented On 3 5:21PM ; [facility] Plan - start medication Clon idine patch Levemir CHECK UP with TOM LILLY M.D. 12/10/2022 Last Documented On 3 5:21PM ; [facility] Ordered patient to call if p roblem develops CHECK UP with TOM LILLY M.D. 10/31/2022 Last Documented On 3 5:26PM ; [facility] Ordered return to the clinic if condition worsens or new symptoms arise CHECK UP with TOM LILLY M.D. 10/31/2022 Last Documented On 3 5:26PM ; [facility] Plan - start medication Leve sydni / titrate to blood sugar readings CHECK UP with TOM LILLY M.D. 10/31/2022 Last Documented On 3 5:26PM ; [facility] Continue current medication FOLLOW UP with SOCORRO LILLY M.D. 10/09/2022 Last Documented On 3 5:23PM ; [facility] Modify drug dosage Ozempic t o 1 mg a week Carvedilol to 25/ 2 x aday Vit D at 5000 u a day FOLLOW UP with TOM LILLY M.D. 10/09/2022 Last Documented On 3 5:23PM ; [facility] Ordered patient to call if p sukumarlem develops FOLLOW UP with TOM LILLY M.D. 10/09/2022 Last Documented On 3 5:23PM ; [facility] Ordered return to the clinic if condition worsens or new symptoms arise FOLLOW UP with TOM LILLY M.D. 10/09/2022 Last Documented On 3 5:23PM ; [facility] Plan - start medication Vit B12/ Folic acid FOLLOW UP with TOM LILLY M.D. 10/09/2022 Last Documented On 3 5:23PM ; [facility] Continue current medication CHECK UP with HO LILLY M.D. 09/05/2022 Last Documented On 3 4:58PM ; [facility] Monitor Blood Pressure at home CHECK UP with ИВАН LILLY M.D. 09/05/2022 Last Documented On 3 4:58PM ; [facility] Monitor Blood Sugar Check Bl ood Sugar readings at home CHECK UP with TOM LILLY M.D. 09/05/2022 Last Documented On 3 4:58PM ; [facility] Ordered patient to call if p sukumarlem develops CHECK UP with TOM LILLY M.D. 09/05/2022 Last Documented On 3 4:58PM ; [facility] Ordered return to the clinic if condition worsens or new symptoms arise CHECK UP with TOM LILLY M.D. 09/05/2022 Last Documented On 3 4:58PM ; [facility] Plan - start medication tors emide at 5 mg a day CHECK UP with TOM LILLY M.D. 09/05/2022 Last Documented On 3 4:58PM ; [facility] Continue current medication encourage to try meds take careg at night Inc Ozempic to 0.5 once a week FOLLOW UP with TOM LILLY M.D. 07/10/2022 Last Documented On 3 5:23PM ; [facility] Ordered patient to call if p sukumarlem develops FOLLOW UP with TOM LILLY M.D. 07/10/2022 Last Documented On 3 5:23PM ; [facility] Ordered return to the clinic if condition worsens or new symptoms arise FOLLOW UP with TOM LILLY M.D. 07/10/2022 Last Documented On 3 5:23PM ; [facility] Continue current medication CHECK UP with HO LILLY M.D. 05/16/2022 Last Documented On 3 5:26PM ; [facility] Monitor Blood Pressure at home CHECK UP with ИВАН LILLY M.D. 05/16/2022 Last Documented On 3 5:26PM ; [facility] Monitor Blood Sugar Check Bl ood Sugar readings at home CHECK UP with TOM LILLY M.D. 05/16/2022 Last Documented On 3 5:26PM ; [facility] Ordered patient to call if p roblem develops CHECK UP with TOM LILLY M.D. 05/16/2022 Last Documented On 3 5:26PM ; [facility] Ordered return to the clinic if condition worsens or new symptoms arise CHECK UP with TOM LILLY M.D. 05/16/2022 Last Documented On 3 5:26PM ; [facility] Continue current medication CHECK UP with HO LILLY M.D. 03/26/2022 Last Documented On 3 5:32PM ; [facility] Ordered patient to call if p sukumarlem develops CHECK UP with TOM LILLY M.D. 03/26/2022 Last Documented On 3 5:32PM ; [facility] Ordered return to the clinic if condition worsens or new symptoms arise CHECK UP with TOM LILLY M.D. 03/26/2022 Last Documented On 3 5:32PM ; [facility] Continue current medication CHECK UP with HO LILLY M.D. 02/11/2022 Last Documented On 2 5:06PM ; [facility] Ordered patient to call if p sukumarlem develops CHECK UP with TOM LILLY M.D. 02/11/2022 Last Documented On 2 5:06PM ; [facility] Ordered return to the clinic if condition worsens or new symptoms arise CHECK UP with TOM LILLY M.D. 02/11/2022 Last Documented On 2 5:06PM ; [facility] Plan - start medication Lant us/ would like to have a witnessed shot while at clinic to amke sure she does not get an untoward reaction to this CHECK UP with TOM LILLY M.D. 02/11/2022 Last Documented On 2 5:06PM ; [facility] Modify drug dosage Ozempic a t 0.5 mg once a week Chlorthalidone at 50 mg a day Lantus at 35 u at night Vit D at 2 tabs a day CHECK UP with TOM LILLY M.D. 12/24/2021 Last Documented On 2 5:29PM ; [facility] Monitor Blood Pressure at home CHECK UP with ИВАН LILLY M.D. 12/24/2021 Last Documented On 2 5:29PM ; [facility] Monitor Blood Sugar Check Bl ood Sugar readings at home CHECK UP with TOM LILLY M.D. 12/24/2021 Last Documented On 2 5:29PM ; [facility] Ordered patient to call if p masoudm develops CHECK UP with TOM LILLY M.D. 12/24/2021 Last Documented On 2 5:29PM ; [facility] Ordered return to the clinic if condition worsens or new symptoms arise CHECK UP with TOM LILLY M.D. 12/24/2021 Last Documented On 2 5:29PM ; [facility] Modify drug dosage Lantus to 35 u a day Chlorthalidone to 50 mg a day CHECK UP with TOM LILLY M.D. 11/01/2021 Last Documented On 2 11:42AM ; [facility] Ordered patient to call if p masoudm develops CHECK UP with TOM LILLY M.D. 11/01/2021 Last Documented On 2 11:42AM ; [facility] Ordered return to the clinic if condition worsens or new symptoms arise CHECK UP with TOM LILLY M.D. 11/01/2021 Last Documented On 2 11:42AM ; [facility] Plan - start medication Ozem pic at 0.25 mg a day Pt would benefit from a continuous glucose monitor CHECK UP with TOM LILLY M.D. 11/01/2021 Last Documented On 2 11:42AM ; [facility] Continue current medication CHECK UP with HO LILLY M.D. 09/27/2021 Last Documented On 2 5:35PM ; [facility] Modify drug dosage Lantus to 30 u a day CHECK UP with TOM LILLY M.D. 09/27/2021 Last Documented On 2 5:35PM ; [facility] Monitor Blood Pressure at home CHECK UP with ИВАН LILLY M.D. 09/27/2021 Last Documented On 2 5:35PM ; [facility] Monitor Blood Sugar Check Bl ood Sugar readings at home CHECK UP with TOM LILLY M.D. 09/27/2021 Last Documented On 2 5:35PM ; [facility] Ordered patient to call if p masoudm develops CHECK UP with TOM ILLLY M.D. 09/27/2021 Last Documented On 2 5:35PM ; [facility] Ordered return to the clinic if condition worsens or new symptoms arise CHECK UP with TOM LILLY M.D. 09/27/2021 Last Documented On 2 5:35PM ; [facility] Plan - start medication Chlo rthalidone farxiga CHECK UP with TOM LILLY M.D. 09/27/2021 Last Documented On 2 5:35PM ; [facility] Modify drug dosage Invokanna at 300 a day Irbesartan at 300 a day Lantus at 25 u a day CHECK UP with TOM LILLY M.D. 08/15/2021 Last Documented On 2 5:19PM ; [facility] Monitor Blood Pressure at home CHECK UP with ИВАН LILLY M.D. 08/15/2021 Last Documented On 2 5:19PM ; [facility] Monitor Blood Sugar Check Bl ood Sugar readings at home CHECK UP with TOM LILLY M.D. 08/15/2021 Last Documented On 2 5:19PM ; [facility] Ordered patient to call if p masoudm develops CHECK UP with TOM LILLY M.D. 08/15/2021 Last Documented On 2 5:19PM ; [facility] Ordered return to the clinic if condition worsens or new symptoms arise CHECK UP with TOM LILLY M.D. 08/15/2021 Last Documented On 2 5:19PM ; [facility] Plan - start medication Vitamin D CHECK UP with TOM LILLY M.D. 08/15/2021 Last Documented On 2 5:19PM ; [facility] Continue current medication CHECK UP with HO LILLY M.D. 07/18/2021 Last Documented On 2 5:21PM ; [facility] Modify drug dosage lantus to 25 u a day CHECK UP with TOM LILLY M.D. 07/18/2021 Last Documented On 2 5:21PM ; [facility] Monitor Blood Pressure at home CHECK UP with ИВАН LILLY M.D. 07/18/2021 Last Documented On 2 5:21PM ; [facility] Ordered patient to call if p roblem develops CHECK UP with TOM LILLY M.D. 07/18/2021 Last Documented On 2 5:21PM ; [facility] Ordered return to the clinic if condition worsens or new symptoms arise CHECK UP with TOM LILLY M.D. 07/18/2021 Last Documented On 2 5:21PM ; [facility] Plan - start medication Invo kanna samples at 100 mg a day Chlorthalidone for BP CHECK UP with TOM LILLY M.D. 07/18/2021 Last Documented On 2 5:21PM ; [facility] Continue current medication take both amlodipine and irbesatan CHECK UP with TOM LILLY M.D. 07/10/2021 Last Documented On 2 5:30PM ; [facility] Monitor Blood Pressure at home CHECK UP with ИВАН LILLY M.D. 07/10/2021 Last Documented On 2 5:30PM ; [facility] Ordered patient to call if p roblem develops CHECK UP with TOM LILLY M.D. 07/10/2021 Last Documented On 2 5:30PM ; [facility] Ordered return to the clinic if condition worsens or new symptoms arise CHECK UP with TOM LILLY M.D. 07/10/2021 Last Documented On 2 5:30PM ; [facility] Modify drug dosage Lantus to 15 to 20 units 2 x a day NEW PATIENT EXAM - ADULT with TOM LILLY M.D. 05/21/2021 Last Documented On 2 5:39PM ; [facility] Monitor Blood Pressure at home NEW PATIE NT EXAM - ADULT with TOM Yashira MAXX M.D. 05/21/2021 Last Documented On 2 5:39PM ; [facility] Monitor Blood Sugar Check Bl ood Sugar readings at home NEW PATIENT EXAM - ADULT with TOM Yashira MAXX M.D. 05/21/2021 Last Documented On 2 5:39PM ; [facility] Ordered patient to call if stefano roldan develops NEW PATIENT EXAM - ADULT with TOM Yashira MAXX M.D. 05/21/2021 Last Documented On 2 5:39PM ; [facility] Ordered return to the clinic if condition worsens or new symptoms arise NEW PATIENT EXAM - ADULT with TOM Yashira MAXX M.D. 05/21/2021 Last Documented On 2 5:39PM ; [facility] Plan - start medication irbe saratan for BP NEW PATIENT EXAM - ADULT with TOM Yashira MAXX M.D. 05/21/2021 Last Documented On 2 5:39PM ; [facility] Plan - stop medication amlod ipine due to swelling NEW PATIENT EXAM - ADULT with TOM Yashira GREENEMAXX M.D. 05/21/2021 Last Documented On 2 5:39PM ; [facility] Continue current medication COVID SICK V ISIT- ESTABLISHED PATIENT with RENEA BENNETT COPPER ETCHER-C 03/14/2021 Last Documented On 2 6:12PM ; [facility] The options include close observation CO VID SICK VISIT- ESTABLISHED PATIENT with RENEA BENNETT COPPER ETCHER-C 03/14/2021 Last Documented On 2 6:12PM ; [facility] Ordered Clinical summary pro vided to patient . Plan discussed and patient/parent/caregiver states understanding CHECK UP with EV GALINDO PA-C 03/12/2021 Last Documented On 2 9:28PM ; [facility] Ordered follow-up visit in 1 -2 month with an office visit with Dr. Lorenzo. Get fasting labs prior. Take 2 more wks of amlodipine but start the lisinopril as it can take 2 wks to start working. Stressed compliance and risks of CVA/CT with untreated HTN. Discussed Genesight testing (handout given) for anxiety meds and decreasing Valium (PCP's request). Call sooner if needed CHECK UP with EV GALINDO PA-C 03/12/2021 Last Documented On 2 9:28PM ; [facility] Ordered follow-up visit 3 month CHECK UP with KIRILL ALCANTAR MD 10/19/2020 Last Documented On 1 3:55PM ; [facility] Ordered return to the clinic if condition worsens or new symptoms arise CHECK UP with ARLEY ALCANTAR MD 10/19/2020 Last Documented On 1 3:55PM ; [facility] PLAN [Use for s.o.a.p. note free text] CHECK UP with ARLEY ALCANTAR MD 10/19/2020 Last Documented On 1 3:55PM ; [facility] Ordered patient will call fo r appointment as needed COVID SICK VISIT- ESTABLISHED PATIENT with JUAN DAMICOP- 08/24/2020 Last Documented On 1 6:17PM ; [facility] Ordered return to the clinic if condition worsens or new symptoms arise COVID SICK VISIT- ESTABLISHED PATIENT with JUAN DAMICOP- 08/24/2020 Last Documented On 1 6:17PM ; [facility] Ordered follow-up visit 3 month CHECK UP with KIRILL ALCANTAR MD 05/24/2020 Last Documented On 1 12:49PM ; [facility] Ordered return to the clinic if condition worsens or new symptoms arise CHECK UP with ARLEY ALCANTAR MD 05/24/2020 Last Documented On 1 12:49PM ; [facility] PLAN [Use for s.o.a.p. note free text] CHECK UP with ARLEY ALCANTAR MD 05/24/2020 Last Documented On 1 12:49PM ; [facility] Continue current medication SICK VISIT with CLOTILDE DARDEN 04/14/2020 Last Documented On 1 4:19PM ; [facility] The options include close observation SI CK VISIT with LISA DARDEN 04/14/2020 Last Documented On 1 4:19PM ; [facility] Ordered follow-up visit 3 months TELEHEALTH with ARLEY ALCANTAR MD 01/19/2020 Last Documented On 0 5:20PM ; [facility] Ordered return to the clinic if condition worsens or new symptoms arise TELEHEALTH with ARLEY ALCANTAR MD 01/19/2020 Last Documented On 0 5:20PM ; [facility] PLAN [Use for s.o.a.p. note free text] TELEHEALTH with ARLEY ALCANTAR MD 01/19/2020 Last Documented On 0 5:20PM ; [facility] Ordered follow-up visit 3 mon 3 MONTH CHECK with ARLEY ALCANTAR MD 11/24/2019 Last Documented On 0 9:43PM ; [facility] Ordered return to the clinic if condition worsens or new symptoms arise 3 MONTH CHECK with ARLEY ALCANTAR MD 11/24/2019 Last Documented On 0 9:43PM ; [facility] PLAN [Use for s.o.a.p. note free text] 3 MONTH CHECK with ARLEY ALCANTAR MD 11/24/2019 Last Documented On 0 9:43PM ; [facility] Ordered follow-up visit 3 months TELEHEALTH with ARLEY ALCANTAR MD 08/06/2019 Last Documented On 0 12:51PM ; [facility] Ordered return to the clinic if condition worsens or new symptoms arise TELEHEALTH with ARLEY ALCANTAR MD 08/06/2019 Last Documented On 0 12:51PM ; [facility] PLAN [Use for s.o.a.p. note free text] TELEHEALTH with ARLEY ALCANTAR MD 08/06/2019 Last Documented On 0 12:51PM ; [facility] Ordered follow-up visit as n eeded with an office visit. FACE TO FACE with EV GALINDO PA-C 04/30/2019 Last Documented On 0 3:58PM ; [facility] Ordered follow-up visit 3 mon 2 WK CK-UP with KIRILL ALCANTAR MD 04/07/2019 Last Documented On 0 11:14AM ; [facility] Ordered return to the clinic if condition worsens or new symptoms arise 2 WK CK-UP with ARLEY ALCANTAR MD 04/07/2019 Last Documented On 0 11:14AM ; [facility] PLAN [Use for s.o.a.p. note free text] 2 WK CK-UP with ARLEY ALCANTAR MD 04/07/2019 Last Documented On 0 11:14AM ; [facility] Pt to use prescription as or dered. Purpose of and use of medication discussed. WALK-IN CLINIC SICK VISIT with HARI Garcia [facility] 08/06/2017 Last Documented On 8 12:04PM ; [facility] Ordered patient to call if p yuli develops WALK-IN CLINIC SICK VISIT with KRYSTYNA Williamson [facility]- 11/17/2016 Last Documented On 7 3:38PM ; [facility] Ordered return to the clinic if condition worsens or new symptoms arise WALK-IN CLINIC SICK VISIT with KRYSTYNA Williamson [facility]- 11/17/2016 Last Documented On 7 3:38PM ; [facility] Pt to use prescription as or dered. Purpose of and use of medication discussed. PROBLEM VISIT with HARI RAMIREZTONNY [facility] 11/21/2015 Last Documented On 6 2:21PM ; [facility] Ordered follow-up visit in 5 -7 days with an office visit PROBLEM VISIT with HARI [facility]- 11/21/2015 Last Documented On 6 2:21PM ; [facility] She will let us know if she has other problems in the meantime NEW SUPERVISOR SANDBLASTER EXAM with MEME PERAZA MD 07/26/2014 Last Documented On 5 1:47PM ; [facility] Ordered follow-up visit 1 ye ar or as needed NEW SUPERVISOR SANDBLASTER EXAM with MEME PERAZA MD 07/26/2014 Last Documented On 5 1:47PM ; [facility] Pending Tests Order Diagnosis Results Due Ordering P rovider Ultrasound (OB) - ULTRASOUND Pelvic w/TVT (TransVag) Excessive and frequent menstruation with regular cycle 06/30/23 LAURA FONTENOT RN [facility] Last Documented On 4 2:05PM ; [facility] Radiology @ other - *MAMMOGRAPHY SCREENING MAMMOGRAM Encntr screen mammogram for malignant neoplasm of breast 07/14/23 LAURA FONTENOT RN [facility] Last Documented On 4 2:05PM ; [facility] Referrals To Diagnosis Other [facility] - [address] [place] [address] Meniere's disease, bilateral Note: [facility] at [facility]- severe dizziness, hearing loss Last Documented On 0 10:59AM ; [facility] Application Processor RAMIREZ GARCIA MD [facility] - [address] [place] [address] - Type 2 diabetes mellitus with hyperglycemia Note: type 2 diabetic pooly controlled-diet non-compliance Last Documented On 1 4:26PM ; [facility] Application Processor CAMELIA TRINH MD Type 2 diabetes mellitus with hyperglycemia Note: uncontrolled diabetes Last Documented On 2 5:04PM ; [facility] Pain Management Low back pain, u nspecified Last Documented On 3 3:06PM ; [facility] Principal Systems Engineer [facility] [address] [address] - Type 2 diabetes mellitus with hyperglycemia Note: gateway Dx SOB/ DELGADO Last Documented On 2 1:17PM ; [facility] Rug Weaver VIRGILIO SAENZ MD Chronic kidne y disease, unspecified Note: DR Roselia Ramírez renal Fa ilure Last Documented On 3 2:14PM ; [facility] Application Processor CAMELIA TRINH MD - [facility] - [address] [place] [address] - Type 2 diabetes mellitus with hyperglycemia Note: Dr Nano Trinh Last Documented On 4 11:06AM ; [facility] Wound Care [facility] [place] [address] - Lymphedema, not elsewhere classified Last Documented On 4 3:01PM ; [facility] Care Programs CHRONIC CARE MANAGMENT Last Documented On 1 11:07AM ; [facility] Instructions to patient Instructions for patient : p atient is to keep a menstrual diary to help with further evaluation and treatment Last Documented On 4 2:11PM ; [facility] Instructions for patient ER if bleeding through reg. sized pad/tampon < 1 hour Last Documented On 4 2:11PM ; [facility] Instructions for patient ER if dizzy, vomiting or light-headed due to heavy bleeding Last Documented On 4 2:11PM ; [facility] Instructed to call if excess reynaldo bleeding or abdominal/pelvic pain Last Documented On 4 1:22PM ; [facility] Instructions For Patient: Mo nthly Self Breast Exam Last Documented On 4 1:22PM ; [facility] Recommend diet and exercise at least 30 min three times per week Last Documented On 4 1:22PM ; [facility] Intervention and counseling on cessation of tobacco use Last Documented On 1 2:14PM ; [facility] Instructions for patient Last Documented On 1 6:14PM ; [facility] Intervention and counseling on cessation of tobacco use : Patient recieved smoking cessation handout Last Documented On 1 5:21PM ; [facility] Maintain a healthy diet Last Documented On 0 2:56PM ; [facility] Lose weight Last Documented On 0 2:56PM ; [facility] Go to the emergency room if condition worsens Last Documented On 7 3:36PM ; [facility] Instructions for patient Last Documented On 6 5:25PM ; [facility] Intervention and counseling on cessation of tobacco use Last Documented On 6 5:25PM ; [facility] Lose weight Last Documented On 6 3:16PM ; [facility] Weight loss advised Last Documented On 6 3:16PM ; [facility] Instructions for patient : B reast Self Exam discussed Last Documented On 5 1:20PM ; [facility] Education and Decision Aids were provided during visit for: Patient Education: Daily flaco cium and vitamin D Last Documented On 4 1:22PM ; [facility] Discussed preventing falls Last Documented On 0 2:56PM ; [facility] Patient education about a pr oper diet Last Documented On 0 2:56PM ; [facility] Patient education about regu lar dental care Last Documented On 0 2:56PM ; [facility] Patient education about diab etes and discussed ABCs of diabetic therapy and goals Last Documented On 0 2:56PM ; [facility] Patient education about a ho me blood glucose monitor with instructions to bring monitor to each visit Last Documented On 0 2:56PM ; [facility] Dietary counseling pertainin g to diabetes mellitus Last Documented On 0 2:56PM ; [facility] Patient education about diab etic foot care Last Documented On 0 2:56PM ; [facility] Inquiry and counseling about medication administration and compliance Last Documented On 0 2:56PM ; [facility] Patient goals discussed Last Documented On 0 2:56PM ; [facility] The patient's goal is to brandon t the blood sugars and bring in the results to each visit Last Documented On 0 2:56PM ; [facility] Parent education about immun izations Discussed: ~Risks/Benefits of vaccine components discussed ~Discussed possible side effects of each component and when to call the office. ~ Last Documented On 8 5:54PM ; [facility] Parent education about immun izations VIS# influenza 10/14/14 ~Discussed: ~Risks/Benefits of vaccine components discussed ~Discussed possible side effects of each component and when to call the office Last Documented On 8 5:54PM ; [facility] Patient education about anti biotics: need to finish even if feeling better Last Documented On 7 3:36PM ; [facility] STD screening offered and de clined Last Documented On 5 1:20PM ; [facility] Bone Mineral Density Screeni ng guidelines reviewed Last Documented On 5 1:20PM ; [facility] Colonoscopy screening guidel jenifer discussed Last Documented On 5 1:20PM ; [facility] Assessments Includes: Assessments for all patient encounters Findings Encounter Date Adult sleep apnea CHECK UP with TOM LILLY M.D. 08/13/2023 Last Documented On 4 1:34PM ; [facility] Adult sleep apnea CHECK UP with TOM LILLY M.D. 08/13/2023 Last Documented On 4 1:34PM ; [facility] Atrophy of left kidney CHECK UP with TOM RYAN M.D. 08/13/2023 Last Documented On 4 1:34PM ; [facility] Essential hypertension CHECK UP with TOM RYAN M.D. 08/13/2023 Last Documented On 4 1:34PM ; [facility] Essential hypertension CHECK UP with TOM RYAN M.D. 08/13/2023 Last Documented On 4 1:34PM ; [facility] Generalized anxiety disorder CHECK UP with SOCORRO LILLY M.D. 08/13/2023 Last Documented On 4 1:34PM ; [facility] Generalized anxiety disorder CHECK UP with SOCORRO LILLY M.D. 08/13/2023 Last Documented On 4 1:34PM ; [facility] Hyperlipidemia due to type 2 diabetes mellitus CHECK UP with TOM LILLY M.D. 08/13/2023 Last Documented On 4 1:34PM ; [facility] Hyperlipidemia due to type 2 diabetes mellitus CHECK UP with TOM LILLY M.D. 08/13/2023 Last Documented On 4 1:34PM ; [facility] Iron deficiency anemia CHECK UP with TOM RYAN M.D. 08/13/2023 Last Documented On 4 1:34PM ; [facility] Iron deficiency anemia CHECK UP with TOM S D RANDALON M.DJoe 08/13/2023 Last Documented On 4 1:34PM ; [facility] Morbid obesity CHECK UP with TOM S MAXX M. DJoe 08/13/2023 Last Documented On 4 1:34PM ; [facility] Morbid obesity CHECK UP with TOM S MAXX M. DJoe 08/13/2023 Last Documented On 4 1:34PM ; [facility] Stage 2 chronic kidney disea se due to type 2 diabetes mellitus CHECK UP with TOM S MAXX M.D. 08/13/2023 Last Documented On 4 1:34PM ; [facility] Stage 2 chronic kidney disea se due to type 2 diabetes mellitus CHECK UP with TOM S MAXX M.D. 08/13/2023 Last Documented On 4 1:34PM ; [facility] Type 2 diabetes mellitus CHECK UP with TOM S MAXX M.D. 08/13/2023 Last Documented On 4 1:34PM ; [facility] Type 2 diabetes mellitus CHECK UP with TOM S MAXX M.D. 08/13/2023 Last Documented On 4 1:34PM ; [facility] Venous insufficiency CHECK UP with TOM S DIZ ON M.D. 08/13/2023 Last Documented On 4 1:34PM ; [facility] Venous insufficiency CHECK UP with TOM S DIZ ON M.D. 08/13/2023 Last Documented On 4 1:34PM ; [facility] Vitamin D deficiency CHECK UP with TOM S DIZ ON M.D. 08/13/2023 Last Documented On 4 1:34PM ; [facility] Vitamin D deficiency CHECK UP with TOM S DIZ ON M.D. 08/13/2023 Last Documented On 4 1:34PM ; [facility] Anemia HOSPITAL FOLLOW UP EXAM with JULIANN HANSEN DELICATESSEN MANAGER-FPA, COPPER ETCHER-BC 07/31/2023 Last Documented On 4 8:36AM ; [facility] Hyperkalemia HOSPITAL FOLLOW UP EXAM with JULIANN NAVARROLP DELICATESSEN MANAGER-FPA, COPPER ETCHER-BC 07/31/2023 Last Documented On 4 8:36AM ; [facility] Lymphedema due to venous insufficiency H OSPITAL FOLLOW UP EXAM with TRINH Avendaño JADE DELICATESSEN MANAGER-FPA, COPPER ETCHER-BC 07/31/2023 Last Documented On 4 8:36AM ; [facility] Pneumonia HOSPITAL FOLLOW UP EXAM with JULIANN Avendaño JADE DELICATESSEN MANAGER-FPA, COPPER ETCHER-BC 07/31/2023 Last Documented On 4 8:36AM ; [facility] Adult sleep apnea CHECK UP with TOM LILLY M.D. 07/14/2023 Last Documented On 4 4:54PM ; [facility] Atrophy of left kidney CHECK UP with TOM RYAN M.D. 07/14/2023 Last Documented On 4 4:54PM ; [facility] Edema CHECK UP with TOM Ma 07/14/2023 Last Documented On 4 4:54PM ; [facility] Essential hypertension CHECK UP with TOM RYAN M.D. 07/14/2023 Last Documented On 4 4:54PM ; [facility] Generalized anxiety disorder CHECK UP with SOCORRO LILLY M.D. 07/14/2023 Last Documented On 4 4:54PM ; [facility] Hyperlipidemia due to type 2 diabetes mellitus CHECK UP with TOM LILLY M.D. 07/14/2023 Last Documented On 4 4:54PM ; [facility] Iron deficiency anemia CHECK UP with TOM RYAN M.D. 07/14/2023 Last Documented On 4 4:54PM ; [facility] Morbid obesity CHECK UP with TOM Ma 07/14/2023 Last Documented On 4 4:54PM ; [facility] Stage 2 chronic kidney disea se due to type 2 diabetes mellitus CHECK UP with TOM LILLY M.D. 07/14/2023 Last Documented On 4 4:54PM ; [facility] Venous insufficiency CHECK UP with TOM LUNA ON M.D. 07/14/2023 Last Documented On 4 4:54PM ; [facility] Vitamin D deficiency CHECK UP with TOM LUNA ON M.D. 07/14/2023 Last Documented On 4 4:54PM ; [facility] Menorrhagia WELL WOMAN - NEW PATIENT with CA KATE FONTENOT RN [facility] 06/30/2023 Last Documented On 4 2:20PM ; [facility] NORMAL FEMALE EXAM WELL WOMAN - NEW PATIENT with LAURA FONTENOT RN [facility] 06/30/2023 Last Documented On 4 2:20PM ; [facility] Screen malignant neoplasm cervix WELL WO MAN - NEW PATIENT with LAURA FONTENOT RN [facility] 06/30/2023 Last Documented On 4 2:20PM ; [facility] Adult sleep apnea CHECK UP with TOM LILLY M.D. 06/09/2023 Last Documented On 4 5:01PM ; [facility] Essential hypertension CHECK UP with TOM RYAN M.D. 06/09/2023 Last Documented On 4 5:01PM ; [facility] Generalized anxiety disorder CHECK UP with SOCORRO LILLY M.D. 06/09/2023 Last Documented On 4 5:01PM ; [facility] Iron deficiency anemia CHECK UP with TOM RYAN M.D. 06/09/2023 Last Documented On 4 5:01PM ; [facility] Morbid obesity CHECK UP with TOM Ma 06/09/2023 Last Documented On 4 5:01PM ; [facility] Type 2 diabetes mellitus - u ncomplicated, uncontrolled CHECK UP with TOM LILLY M.D. 06/09/2023 Last Documented On 4 5:01PM ; [facility] Vitamin D deficiency CHECK UP with OTM Yashira LUNA ON M.D. 06/09/2023 Last Documented On 4 5:01PM ; [facility] Adult sleep apnea CHECK UP with TOMYaa LILLY M.D. 04/02/2023 Last Documented On 4 5:05PM ; [facility] Essential hypertension CHECK UP with TOM S Lita RYAN M.D. 04/02/2023 Last Documented On 4 5:05PM ; [facility] Generalized anxiety disorder CHECK UP with SALTYC HOLLAND LILLY M.D. 04/02/2023 Last Documented On 4 5:05PM ; [facility] Iron deficiency anemia CHECK UP with TOM S Lita RYAN M.D. 04/02/2023 Last Documented On 4 5:05PM ; [facility] Morbid obesity CHECK UP with TOM Ma 04/02/2023 Last Documented On 4 5:05PM ; [facility] Type 2 diabetes mellitus - u ncomplicated, uncontrolled CHECK UP with TOM LILLY M.D. 04/02/2023 Last Documented On 4 5:05PM ; [facility] Vitamin D deficiency CHECK UP with TOM Yashira LUNA ON M.D. 04/02/2023 Last Documented On 4 5:05PM ; [facility] Adult sleep apnea CHECK UP with TOM LILLY M.D. 02/12/2023 Last Documented On 3 5:12PM ; [facility] Essential hypertension CHECK UP with TOM S Lita RYAN M.D. 02/12/2023 Last Documented On 3 5:12PM ; [facility] Generalized anxiety disorder CHECK UP with SALTYC HOLLAND LILLY M.D. 02/12/2023 Last Documented On 3 5:12PM ; [facility] Iron deficiency anemia CHECK UP with TOM S Lita RYAN M.D. 02/12/2023 Last Documented On 3 5:12PM ; [facility] Morbid obesity CHECK UP with TOM Ma 02/12/2023 Last Documented On 3 5:12PM ; [facility] Type 2 diabetes mellitus - u ncomplicated, uncontrolled CHECK UP with TOM LILLY M.D. 02/12/2023 Last Documented On 3 5:12PM ; [facility] Vitamin D deficiency CHECK UP with TOM Yashira LUNA ON M.D. 02/12/2023 Last Documented On 3 5:12PM ; [facility] Adult sleep apnea CHECK UP with TOM LILLY M.D. 01/08/2023 Last Documented On 3 5:23PM ; [facility] Essential hypertension CHECK UP with TOM RYAN M.D. 01/08/2023 Last Documented On 3 5:23PM ; [facility] Generalized anxiety disorder CHECK UP with SOCORRO LILLY M.D. 01/08/2023 Last Documented On 3 5:23PM ; [facility] Iron deficiency anemia CHECK UP with TOM RYAN M.D. 01/08/2023 Last Documented On 3 5:23PM ; [facility] Morbid obesity CHECK UP with TOM Ma 01/08/2023 Last Documented On 3 5:23PM ; [facility] Type 2 diabetes mellitus - u ncomplicated, uncontrolled CHECK UP with TOMYaa LILLY M.D. 01/08/2023 Last Documented On 3 5:23PM ; [facility] Vitamin D deficiency CHECK UP with TOM LUNA ON M.D. 01/08/2023 Last Documented On 3 5:23PM ; [facility] Adult sleep apnea CHECK UP with TOM LILLY M.D. 12/10/2022 Last Documented On 3 5:21PM ; [facility] Essential hypertension CHECK UP with TOM S Lita RYAN M.D. 12/10/2022 Last Documented On 3 5:21PM ; [facility] Generalized anxiety disorder CHECK UP with SALTYC HOLLAND LILLY M.D. 12/10/2022 Last Documented On 3 5:21PM ; [facility] Iron deficiency anemia CHECK UP with TOM S Lita RYAN M.D. 12/10/2022 Last Documented On 3 5:21PM ; [facility] Morbid obesity CHECK UP with TOMYaa Ma 12/10/2022 Last Documented On 3 5:21PM ; [facility] Type 2 diabetes mellitus - u ncomplicated, uncontrolled CHECK UP with TOM S MAXX Williamson.Anil 12/10/2022 Last Documented On 3 5:21PM ; [facility] Vitamin D deficiency CHECK UP with TOM Yashira LUNA ON M.D. 12/10/2022 Last Documented On 3 5:21PM ; [facility] Adult sleep apnea CHECK UP with TOM LILLY M.D. 10/31/2022 Last Documented On 3 5:26PM ; [facility] Essential hypertension CHECK UP with TOM S Lita RYAN M.D. 10/31/2022 Last Documented On 3 5:26PM ; [facility] Generalized anxiety disorder CHECK UP with SOCORRO LILLY M.D. 10/31/2022 Last Documented On 3 5:26PM ; [facility] Iron deficiency anemia CHECK UP with TOM S Lita RYAN M.D. 10/31/2022 Last Documented On 3 5:26PM ; [facility] Morbid obesity CHECK UP with TOM Yashira Ma 10/31/2022 Last Documented On 3 5:26PM ; [facility] Type 2 diabetes mellitus - u ncomplicated, uncontrolled CHECK UP with TOM S MAXX M.Anil 10/31/2022 Last Documented On 3 5:26PM ; [facility] Vitamin D deficiency CHECK UP with TOM S JCZ ON M.D. 10/31/2022 Last Documented On 3 5:26PM ; [facility] Acute bronchitis COVID SICK VISIT- ES TABLISHED PATIENT with FLORINA REYES COPPER ETCHER-C 10/30/2022 Last Documented On 3 5:43PM ; [facility] Acute pharyngitis COVID SICK VISIT- ES TABLISHED PATIENT with FLORINA Hurley REYES COPPER ETCHER-C 10/30/2022 Last Documented On 3 5:43PM ; [facility] Assessment of cough COVID SICK VISIT- ES TABLISHED PATIENT with FLORINA FRANCOCLAIR COPPER ETCHER-C 10/30/2022 Last Documented On 3 5:43PM ; [facility] Contact with and (Suspected) exposure to COVID-19 COVID SICK VISIT- ESTABLISHED PATIENT with FLORINA Hurley REYES COPPER ETCHER-C 10/30/2022 Last Documented On 3 5:43PM ; [facility] Adult sleep apnea FOLLOW UP with TOM LILLY M.D. 10/09/2022 Last Documented On 3 5:23PM ; [facility] Essential hypertension FOLLOW UP with TOM LILLY M.D. 10/09/2022 Last Documented On 3 5:23PM ; [facility] Folic acid deficiency FOLLOW UP with TOM RYAN M.D. 10/09/2022 Last Documented On 3 5:23PM ; [facility] Generalized anxiety disorder FOLLOW UP with SALTY LILLY M.D. 10/09/2022 Last Documented On 3 5:23PM ; [facility] Iron deficiency anemia FOLLOW UP with TOM LILLY M.D. 10/09/2022 Last Documented On 3 5:23PM ; [facility] Morbid obesity FOLLOW UP with TOM Card 10/09/2022 Last Documented On 3 5:23PM ; [facility] Type 2 diabetes mellitus - u ncomplicated, uncontrolled FOLLOW UP with TOM LILLY M.D. 10/09/2022 Last Documented On 3 5:23PM ; [facility] Vitamin D deficiency FOLLOW UP with TOM MACIAS M.D. 10/09/2022 Last Documented On 3 5:23PM ; [facility] Adult sleep apnea CHECK UP with TOM LILLY M.D. 09/05/2022 Last Documented On 3 4:58PM ; [facility] Adult sleep apnea CHECK UP with TOM LILLY M.D. 09/05/2022 Last Documented On 3 4:58PM ; [facility] Essential hypertension CHECK UP with TOM RYAN M.D. 09/05/2022 Last Documented On 3 4:58PM ; [facility] Essential hypertension CHECK UP with TOM RYAN M.D. 09/05/2022 Last Documented On 3 4:58PM ; [facility] Generalized anxiety disorder CHECK UP with SOCORRO LILLY M.D. 09/05/2022 Last Documented On 3 4:58PM ; [facility] Generalized anxiety disorder CHECK UP with SOCORRO LILLY M.D. 09/05/2022 Last Documented On 3 4:58PM ; [facility] Iron deficiency anemia CHECK UP with TOM RYAN M.D. 09/05/2022 Last Documented On 3 4:58PM ; [facility] Iron deficiency anemia CHECK UP with TOM RYAN M.D. 09/05/2022 Last Documented On 3 4:58PM ; [facility] Morbid obesity CHECK UP with TOM Ma 09/05/2022 Last Documented On 3 4:58PM ; [facility] Morbid obesity CHECK UP with TOM Ma 09/05/2022 Last Documented On 3 4:58PM ; [facility] Type 2 diabetes mellitus - u ncomplicated, uncontrolled CHECK UP with TOM LILLY M.D. 09/05/2022 Last Documented On 3 4:58PM ; [facility] Type 2 diabetes mellitus - u ncomplicated, uncontrolled CHECK UP with TOM LILLY M.D. 09/05/2022 Last Documented On 3 4:58PM ; [facility] Vitamin D deficiency CHECK UP with TOM LUNA ON M.D. 09/05/2022 Last Documented On 3 4:58PM ; [facility] Vitamin D deficiency CHECK UP with TOM S DIZ ON M.D. 09/05/2022 Last Documented On 3 4:58PM ; [facility] [B37.31 - Acute candidiasis of vulva and vagina] candidiasis RX ISSUE/REFILL with CHUY DAMICOP-BC 07/31/2022 Last Documented On 3 8:02AM ; [facility] Adult sleep apnea FOLLOW UP with TOM LILLY M.D. 07/10/2022 Last Documented On 3 5:23PM ; [facility] Essential hypertension FOLLOW UP with TOM LILLY M.D. 07/10/2022 Last Documented On 3 5:23PM ; [facility] Generalized anxiety disorder FOLLOW UP with SALTY LILLY M.D. 07/10/2022 Last Documented On 3 5:23PM ; [facility] Iron deficiency anemia FOLLOW UP with TOM LILLY M.D. 07/10/2022 Last Documented On 3 5:23PM ; [facility] Morbid obesity FOLLOW UP with TOM Card 07/10/2022 Last Documented On 3 5:23PM ; [facility] Type 2 diabetes mellitus - u ncomplicated, uncontrolled FOLLOW UP with TOM LILLY M.D. 07/10/2022 Last Documented On 3 5:23PM ; [facility] Vitamin D deficiency FOLLOW UP with TOM MACIAS M.D. 07/10/2022 Last Documented On 3 5:23PM ; [facility] Adult sleep apnea CHECK UP with TOM LILLY M.D. 05/16/2022 Last Documented On 3 5:26PM ; [facility] Essential hypertension CHECK UP with TOM RYAN M.D. 05/16/2022 Last Documented On 3 5:26PM ; [facility] Generalized anxiety disorder CHECK UP with SOCORRO LILLY M.D. 05/16/2022 Last Documented On 3 5:26PM ; [facility] Iron deficiency anemia CHECK UP with TOM RYAN M.D. 05/16/2022 Last Documented On 3 5:26PM ; [facility] Morbid obesity CHECK UP with TOM Ma 05/16/2022 Last Documented On 3 5:26PM ; [facility] Type 2 diabetes mellitus - u ncomplicated, uncontrolled CHECK UP with TOM LILLY M.D. 05/16/2022 Last Documented On 3 5:26PM ; [facility] Vitamin D deficiency CHECK UP with TOM INMAN M.D. 05/16/2022 Last Documented On 3 5:26PM ; [facility] Adult sleep apnea CHECK UP with TOM LILLY M.D. 03/26/2022 Last Documented On 3 5:32PM ; [facility] Essential hypertension CHECK UP with TOM RYAN M.D. 03/26/2022 Last Documented On 3 5:32PM ; [facility] Generalized anxiety disorder CHECK UP with SOCORRO LILLY M.D. 03/26/2022 Last Documented On 3 5:32PM ; [facility] Iron deficiency anemia CHECK UP with TOM RYAN M.D. 03/26/2022 Last Documented On 3 5:32PM ; [facility] Morbid obesity CHECK UP with TOM Ma 03/26/2022 Last Documented On 3 5:32PM ; [facility] Type 2 diabetes mellitus - u ncomplicated, uncontrolled CHECK UP with TOM LILLY M.D. 03/26/2022 Last Documented On 3 5:32PM ; [facility] Vitamin D deficiency CHECK UP with TOM INMAN M.DJoe 03/26/2022 Last Documented On 3 5:32PM ; [facility] Adult sleep apnea CHECK UP with TOM LILLY M.D. 02/11/2022 Last Documented On 2 5:06PM ; [facility] Adult sleep apnea CHECK UP with TOM LILLY M.D. 02/11/2022 Last Documented On 2 5:06PM ; [facility] Essential hypertension CHECK UP with TOM RYAN M.D. 02/11/2022 Last Documented On 2 5:06PM ; [facility] Essential hypertension CHECK UP with TOM RYAN M.D. 02/11/2022 Last Documented On 2 5:06PM ; [facility] Generalized anxiety disorder CHECK UP with SOCORRO LILLY M.D. 02/11/2022 Last Documented On 2 5:06PM ; [facility] Generalized anxiety disorder CHECK UP with SOCORRO LILLY M.D. 02/11/2022 Last Documented On 2 5:06PM ; [facility] Iron deficiency anemia CHECK UP with TOM RYAN M.D. 02/11/2022 Last Documented On 2 5:06PM ; [facility] Morbid obesity CHECK UP with TOM Ma 02/11/2022 Last Documented On 2 5:06PM ; [facility] Morbid obesity CHECK UP with TOM Ma 02/11/2022 Last Documented On 2 5:06PM ; [facility] Type 2 diabetes mellitus - u ncomplicated, uncontrolled CHECK UP with TOM LILLY M.D. 02/11/2022 Last Documented On 2 5:06PM ; [facility] Type 2 diabetes mellitus - u ncomplicated, uncontrolled CHECK UP with TOM S MAXX M.D. 02/11/2022 Last Documented On 2 5:06PM ; [facility] Vitamin D deficiency CHECK UP with TOM S DIZ ON M.D. 02/11/2022 Last Documented On 2 5:06PM ; [facility] Vitamin D deficiency CHECK UP with TOM S DIZ ON M.D. 02/11/2022 Last Documented On 2 5:06PM ; [facility] Adult sleep apnea CHECK UP with TOM S MAXX M.D. 12/24/2021 Last Documented On 2 5:29PM ; [facility] Essential hypertension CHECK UP with TOM S D RANDALON M.D. 12/24/2021 Last Documented On 2 5:29PM ; [facility] Generalized anxiety disorder CHECK UP with LEONC IO S MAXX M.D. 12/24/2021 Last Documented On 2 5:29PM ; [facility] Morbid obesity CHECK UP with TOM S MAXX M. D. 12/24/2021 Last Documented On 2 5:29PM ; [facility] Type 2 diabetes mellitus - u ncomplicated, uncontrolled CHECK UP with TOM S MAXX M.D. 12/24/2021 Last Documented On 2 5:29PM ; [facility] Vitamin D deficiency CHECK UP with TOM S DIZ ON M.D. 12/24/2021 Last Documented On 2 5:29PM ; [facility] Adult sleep apnea CHECK UP with TOM S MAXX M.D. 11/01/2021 Last Documented On 2 11:42AM ; [facility] Essential hypertension CHECK UP with TOM S D IZON M.D. 11/01/2021 Last Documented On 2 11:42AM ; [facility] Generalized anxiety disorder CHECK UP with LEONC IO S MAXX M.D. 11/01/2021 Last Documented On 2 11:42AM ; [facility] Morbid obesity CHECK UP with TOM S MAXX M. DJoe 11/01/2021 Last Documented On 2 11:42AM ; [facility] Type 2 diabetes mellitus - u ncomplicated, uncontrolled CHECK UP with TOM S MAXX M.D. 11/01/2021 Last Documented On 2 11:42AM ; [facility] Vitamin D deficiency CHECK UP with TOM S JEREMY ON M.D. 11/01/2021 Last Documented On 2 11:42AM ; [facility] Adult sleep apnea CHECK UP with TOM S MAXX M.D. 09/27/2021 Last Documented On 2 5:35PM ; [facility] Essential hypertension CHECK UP with TOM S Lita RYAN M.Anil 09/27/2021 Last Documented On 2 5:35PM ; [facility] Generalized anxiety disorder CHECK UP with LEONC HOLLAND Williamson.Anil 09/27/2021 Last Documented On 2 5:35PM ; [facility] Morbid obesity CHECK UP with TOM Yashira LILLY M. D. 09/27/2021 Last Documented On 2 5:35PM ; [facility] Type 2 diabetes mellitus - u ncomplicated, uncontrolled CHECK UP with TOM S MAXX M.D. 09/27/2021 Last Documented On 2 5:35PM ; [facility] Vitamin D deficiency CHECK UP with TOM Yashira LUNA ON M.D. 09/27/2021 Last Documented On 2 5:35PM ; [facility] Adult sleep apnea CHECK UP with TOM Yashira LILLY M.DJoe 08/15/2021 Last Documented On 2 5:19PM ; [facility] Essential hypertension CHECK UP with TOM S Lita TEEON M.D. 08/15/2021 Last Documented On 2 5:19PM ; [facility] Generalized anxiety disorder CHECK UP with LEONC IO S MAXX M.Anil 08/15/2021 Last Documented On 2 5:19PM ; [facility] Morbid obesity CHECK UP with TOM S MAXX M. D. 08/15/2021 Last Documented On 2 5:19PM ; [facility] Type 2 diabetes mellitus - u ncomplicated, uncontrolled CHECK UP with TOM S MAXX M.D. 08/15/2021 Last Documented On 2 5:19PM ; [facility] Vitamin D deficiency CHECK UP with TOM S JEREMY ON M.D. 08/15/2021 Last Documented On 2 5:19PM ; [facility] Adult sleep apnea CHECK UP with TOM S MAXX M.D. 07/18/2021 Last Documented On 2 5:21PM ; [facility] Common migraine without aura without intractable migraine CHECK UP with TOM S MAXX M.D. 07/18/2021 Last Documented On 2 5:21PM ; [facility] Essential hypertension CHECK UP with TOMYaa RYAN M.Anil 07/18/2021 Last Documented On 2 5:21PM ; [facility] Generalized anxiety disorder CHECK UP with LEONC IO Yashira LILLY M.D. 07/18/2021 Last Documented On 2 5:21PM ; [facility] Morbid obesity CHECK UP with TOM S MAXX M. D. 07/18/2021 Last Documented On 2 5:21PM ; [facility] Type 2 diabetes mellitus - u ncomplicated, uncontrolled CHECK UP with TOM S MAXX M.D. 07/18/2021 Last Documented On 2 5:21PM ; [facility] Vitamin D deficiency CHECK UP with TOM S JEREMY ON M.D. 07/18/2021 Last Documented On 2 5:21PM ; [facility] Adult sleep apnea CHECK UP with TOM S MAXX M.D. 07/10/2021 Last Documented On 2 5:30PM ; [facility] Common migraine without aura without intractable migraine CHECK UP with TOM S MAXX M.D. 07/10/2021 Last Documented On 2 5:30PM ; [facility] Essential hypertension CHECK UP with TOM S D RANDALON M.D. 07/10/2021 Last Documented On 2 5:30PM ; [facility] Generalized anxiety disorder CHECK UP with LEONC IO S MAXX M.D. 07/10/2021 Last Documented On 2 5:30PM ; [facility] Morbid obesity CHECK UP with TOM S MAXX M. D. 07/10/2021 Last Documented On 2 5:30PM ; [facility] Type 2 diabetes mellitus - u ncomplicated, uncontrolled CHECK UP with TOM S MAXX M.D. 07/10/2021 Last Documented On 2 5:30PM ; [facility] Vitamin D deficiency CHECK UP with TOM S DIZ ON M.D. 07/10/2021 Last Documented On 2 5:30PM ; [facility] Common migraine without aura without intractable migraine NEW PATIENT EXAM - ADULT with TOM S MAXX M.D. 05/21/2021 Last Documented On 2 5:39PM ; [facility] Essential hypertension NEW PATIENT EXAM - ADULT with TOM S MAXX M.D. 05/21/2021 Last Documented On 2 5:39PM ; [facility] Fatigue NEW PATIENT EXAM - ADULT with LE ONCIO S MAXX M.D. 05/21/2021 Last Documented On 2 5:39PM ; [facility] Generalized anxiety disorder NEW PATIENT EXAM - ADULT with TOM S MAXX M.D. 05/21/2021 Last Documented On 2 5:39PM ; [facility] Hyperlipidemia NEW PATIENT EXAM - ADULT with LE ONCIO S MAXX M.D. 05/21/2021 Last Documented On 2 5:39PM ; [facility] Lumbago NEW PATIENT EXAM - ADULT with LE ONCIO S MAXX M.D. 05/21/2021 Last Documented On 2 5:39PM ; [facility] Migraine headache NEW PATIENT EXAM - ADULT with TOM S MAXX M.D. 05/21/2021 Last Documented On 2 5:39PM ; [facility] Morbid obesity NEW PATIENT EXAM - ADULT with NISA MEDRANO S MAXX M.D. 05/21/2021 Last Documented On 2 5:39PM ; [facility] Organic sleep apnea NEW PATIENT EXAM - ADULT wit h TOM S MAXX M.D. 05/21/2021 Last Documented On 2 5:39PM ; [facility] Type 2 diabetes mellitus - u ncomplicated, uncontrolled NEW PATIENT EXAM - ADULT with TOM S MAXX M.D. 05/21/2021 Last Documented On 2 5:39PM ; [facility] Vitamin D deficiency NEW PATIENT EXAM - ADULT wi th TOM S MAXX M.D. 05/21/2021 Last Documented On 2 5:39PM ; [facility] Cellulitis and abscess of buttock COVID SICK VISIT- ESTABLISHED PATIENT with RENEA BENNETT COPPER ETCHER-C 03/14/2021 Last Documented On 2 6:12PM ; [facility] COVID-19 infection COVID SICK VISIT- ES TABLISHED PATIENT with RENEA BENNETT COPPER ETCHER-C 03/14/2021 Last Documented On 2 6:12PM ; [facility] Essential hypertension CHECK UP with EV BANKSC 03/12/2021 Last Documented On 2 9:28PM ; [facility] Generalized anxiety disorder CHECK UP with AIDE LINDO-C 03/12/2021 Last Documented On 2 9:28PM ; [facility] Essential hypertension CHECK UP with THAO Meagan MURRAY DO 02/02/2021 Last Documented On 1 9:33AM ; [facility] Generalized anxiety disorder CHECK UP with THAO L MAURA DO 02/02/2021 Last Documented On 1 9:33AM ; [facility] Hyperlipidemia CHECK UP with THAO L MAURA DO 02/02/2021 Last Documented On 1 9:33AM ; [facility] Lymphedema CHECK UP with THAO L MAURA DO 02/02/2021 Last Documented On 1 9:33AM ; [facility] Morbid obesity CHECK UP with THAO L MAURA DO 02/02/2021 Last Documented On 1 9:33AM ; [facility] Proteinuria CHECK UP with THAO L MAURA DO 02/02/2021 Last Documented On 1 9:33AM ; [facility] Type 2 diabetes mellitus - u ncomplicated, uncontrolled CHECK UP with THAO L MAURA DO 02/02/2021 Last Documented On 1 9:33AM ; [facility] Adjustment disorder with anx iety and depressed mood CHECK UP with ARLEY ALCANTAR MD 10/19/2020 Last Documented On 1 3:55PM ; [facility] Essential hypertension CHECK UP with ARLEY STRANGE MD 10/19/2020 Last Documented On 1 3:55PM ; [facility] Iron deficiency anemia CHECK UP with ARLEY STRANGE MD 10/19/2020 Last Documented On 1 3:55PM ; [facility] Type 2 diabetes mellitus wit h hyperglycemia CHECK UP with ARLEY ALCANTAR MD 10/19/2020 Last Documented On 1 3:55PM ; [facility] Acute upper respiratory infection COVID SICK VISIT- ESTABLISHED PATIENT with JUAN PICKENS COPPER ETCHER-BC 08/24/2020 Last Documented On 1 6:17PM ; [facility] Type 2 diabetes mellitus - uncomplicated, uncontrolled CHART UPDATE with ANGELICA ARREAGA COPPER ETCHER-C 02/24/2020 Last Documented On 0 12:33PM ; [facility] Type 2 diabetes mellitus wit hout complication INITIAL APPOINTMENT FOR DIABETIC PATIENT with ANGELICA ARREAGA COPPER ETCHER-C 02/22/2020 Last Documented On 1 2:44PM ; [facility] Adjustment disorder with anx iety and depressed mood TELEHEALTH with ARLEY ALCANTAR MD 01/19/2020 Last Documented On 0 5:20PM ; [facility] Allergic rhinitis TELEHEALTH with ARLEY WADE MD 01/19/2020 Last Documented On 0 5:20PM ; [facility] Assessment of menorrhagia TELEHEALTH with ARLEY ALCANTAR MD 01/19/2020 Last Documented On 0 5:20PM ; [facility] Common migraine without aura without intractable migraine TELEHEALTH with ARLEY ALCANTAR MD 01/19/2020 Last Documented On 0 5:20PM ; [facility] Essential hypertension TELEHEALTH with ARLEY TALAVERA MD 01/19/2020 Last Documented On 0 5:20PM ; [facility] Fibrocystic disease of breast TELEHEALTH with KIRILL ALCANTAR MD 01/19/2020 Last Documented On 0 5:20PM ; [facility] Meniere's disease of both ears TELEHEALTH with Yashira ALCANTAR MD 01/19/2020 Last Documented On 0 5:20PM ; [facility] Organic sleep apnea TELEHEALTH with ARLEY CARDOSO MD 01/19/2020 Last Documented On 0 5:20PM ; [facility] Peripheral autonomic neuropa thy due to other disorder TELEHEALTH with ARLEY ALCANTAR MD 01/19/2020 Last Documented On 0 5:20PM ; [facility] Polycystic Ovarian Syndrome (PCOS) TELEHEALTH pr elle ALCANTAR MD 01/19/2020 Last Documented On 0 5:20PM ; [facility] Primary generalized osteoarthritis TELEHEALTH wi elle ALCANTAR MD 01/19/2020 Last Documented On 0 5:20PM ; [facility] Type 2 diabetes mellitus - uncomplicated, uncontrolled TELEHEALTH with ARLEY ALCANTAR MD 01/19/2020 Last Documented On 0 5:20PM ; [facility] Type 2 diabetes mellitus wit h hyperglycemia TELEHEALTH with ARLEY ALCANTAR MD 01/19/2020 Last Documented On 0 5:20PM ; [facility] Adjustment disorder with anx iety and depressed mood 3 MONTH CHECK with ARLEY ALCANTAR MD 11/24/2019 Last Documented On 0 9:43PM ; [facility] Allergic rhinitis 3 MONTH CHECK with ARLEY STRANGE MD 11/24/2019 Last Documented On 0 9:43PM ; [facility] Assessment of menorrhagia 3 MONTH CHECK with LISSETH ALCANTAR MD 11/24/2019 Last Documented On 0 9:43PM ; [facility] Common migraine without aura without intractable migraine 3 MONTH CHECK with ARLEY ALCANTAR MD 11/24/2019 Last Documented On 0 9:43PM ; [facility] Essential hypertension 3 MONTH CHECK with ARLEY ALCANTAR MD 11/24/2019 Last Documented On 0 9:43PM ; [facility] Fibrocystic disease of breast 3 MONTH CHECK with ARLEY ALCANTAR MD 11/24/2019 Last Documented On 0 9:43PM ; [facility] Meniere's disease of both ears 3 MONTH CHECK wit h ARLEY ALCANTAR MD 11/24/2019 Last Documented On 0 9:43PM ; [facility] Organic sleep apnea 3 MONTH CHECK with ARLEY TALAVERA MD 11/24/2019 Last Documented On 0 9:43PM ; [facility] Peripheral autonomic neuropa thy due to other disorder 3 MONTH CHECK with ARLEY ALCANTAR MD 11/24/2019 Last Documented On 0 9:43PM ; [facility] Polycystic Ovarian Syndrome (PCOS) 3 MONTH CHECK with ARLEY ALCANTAR MD 11/24/2019 Last Documented On 0 9:43PM ; [facility] Primary generalized osteoarthritis 3 MONTH CHECK with ARLEY ALCANTAR MD 11/24/2019 Last Documented On 0 9:43PM ; [facility] Type 2 diabetes mellitus wit h hyperglycemia 3 MONTH CHECK with ARLEY ALCANTAR MD 11/24/2019 Last Documented On 0 9:43PM ; [facility] Meniere's disease of both ears FACE TO FACE with EV GALINDO PA-C 04/30/2019 Last Documented On 0 3:58PM ; [facility] Adjustment disorder with anx iety and depressed mood 2 WK CK-UP with ARLEY ALCANTAR MD 04/07/2019 Last Documented On 0 11:14AM ; [facility] Essential hypertension 2 WK CK-UP with ARLEY TALAVERA MD 04/07/2019 Last Documented On 0 11:14AM ; [facility] Meniere's disease of both ears 2 WK CK-UP with S KATHY ALCANTAR MD 04/07/2019 Last Documented On 0 11:14AM ; [facility] Peripheral autonomic neuropa thy due to other disorder 2 WK CK-UP with ARLEY ALCANTAR MD 04/07/2019 Last Documented On 0 11:14AM ; [facility] Primary generalized osteoarthritis 2 WK CK-UP wi th ARLEY ALCANTAR MD 04/07/2019 Last Documented On 0 11:14AM ; [facility] Type 2 diabetes mellitus wit h hyperglycemia 2 WK CK-UP with ARLEY ALCANTAR MD 04/07/2019 Last Documented On 0 11:14AM ; [facility] Adjustment disorder with anx iety and depressed mood NEW PATIENT VISIT with ARLEY ALCANTAR MD 03/24/2019 Last Documented On 0 6:14PM ; [facility] Allergic rhinitis NEW PATIENT VISIT with ARLEY ALCANTAR MD 03/24/2019 Last Documented On 0 6:14PM ; [facility] Assessment of menorrhagia NEW PATIENT VISIT with ARLEY ALCANTAR MD 03/24/2019 Last Documented On 0 6:14PM ; [facility] Common migraine without aura without intractable migraine NEW PATIENT VISIT with ARLEY ALCANTAR MD 03/24/2019 Last Documented On 0 6:14PM ; [facility] Essential hypertension NEW PATIENT VISIT with KIRILL ALCANTRA MD 03/24/2019 Last Documented On 0 6:14PM ; [facility] Meniere's disease of both ears NEW PATIENT VISIT with ARLEY ALCANTAR MD 03/24/2019 Last Documented On 0 6:14PM ; [facility] Organic sleep apnea NEW PATIENT VISIT with ARLEY ALCANTAR MD 03/24/2019 Last Documented On 0 6:14PM ; [facility] Peripheral autonomic neuropa thy due to other disorder NEW PATIENT VISIT with ARLEY ALCANTAR MD 03/24/2019 Last Documented On 0 6:14PM ; [facility] Polycystic Ovarian Syndrome (PCOS) NEW P ATIENT VISIT with ARLEY ALCANTAR MD 03/24/2019 Last Documented On 0 6:14PM ; [facility] Primary generalized osteoarthritis NEW P ATIENT VISIT with ARLEY ALCANTAR MD 03/24/2019 Last Documented On 0 6:14PM ; [facility] Type 2 diabetes mellitus wit h hyperglycemia NEW PATIENT VISIT with ARLEY ALCANTAR MD 03/24/2019 Last Documented On 0 6:14PM ; [facility] Benign paroxysmal positional vertigo [facility]ICK [facility]ISIT with [facility] 08/06/2017 Last Documented On 8 12:04PM ; [facility] Otitis media of the left ear [facility] SICK VISIT with KRYSTYNA TELLEZ [facility] 11/17/2016 Last Documented On 7 3:38PM ; [facility] Vesical tenesmus [facility] SICK VISIT with [facility] 10/12/2016 Last Documented On 7 1:47PM ; [facility] Actinic keratosis PROBLEM VISIT with [facility] 11/21/2015 Last Documented On 6 2:21PM ; [facility] Herpes simplex type II PROBLEM VISIT with CATHAR [facility]ARY [facility] 11/21/2015 Last Documented On 6 2:21PM ; [facility] Site-specific infective diso rders of skin PROBLEM VISIT with [facility]I [facility] 11/21/2015 Last Documented On 6 2:21PM ; [facility] Essential hypertension start lisinopril 20 bid monitor NEW PATIENT VISIT with CANDIS GONZALEZ MD 07/17/2015 Last Documented On 6 6:00PM ; [facility] Primary generalized osteoart hritis wean norco qid down slowly yanni xanax tid bw reviewed f/u late august NEW PATIENT VISIT with CANDIS GONZALEZ MD 07/17/2015 Last Documented On 6 6:00PM ; [facility] Type 2 diabetes mellitus wit h hyperglycemia start glyxambi 10/5 qd monitor add humalog 10 + ssi qac, set up appt w CB NEW PATIENT VISIT with CANDIS GONZALEZ MD 07/17/2015 Last Documented On 6 6:00PM ; [facility] Dependent edema due to inactivity PROBLE M VISIT with HARI [facility] 06/24/2015 Last Documented On 6 3:16PM ; [facility] Fibrocystic disease of breast NEW SUPERVISOR SANDBLASTER EXAM with MEME PERAZA MD 07/26/2014 Last Documented On 5 1:47PM ; [facility] Menorrhagia NEW SUPERVISOR SANDBLASTER EXAM with MEME PERAZA MD 07/26/2014 Last Documented On 5 1:47PM ; [facility] NORMAL FEMALE EXAM NEW SUPERVISOR SANDBLASTER EXAM with MEME LAWLER MD 07/26/2014 Last Documented On 5 1:47PM ; [facility] Screening Malig. Neoplasm Rectum NEW SUPERVISOR SANDBLASTER EXAM wi th MEME PERAZA MD 07/26/2014 Last Documented On 5 1:47PM ; [facility] Instructions Includes: Instructions for all patient encounters Instructions to patient Instructions for patient : p atient is to keep a menstrual diary to help with further evaluation and treatment Last Documented On 4 2:11PM ; [facility] Instructions for patient ER if bleeding through reg. sized pad/tampon < 1 hour Last Documented On 4 2:11PM ; [facility] Instructions for patient ER if dizzy, vomiting or light-headed due to heavy bleeding Last Documented On 4 2:11PM ; [facility] Instructed to call if excess reynaldo bleeding or abdominal/pelvic pain Last Documented On 4 1:22PM ; [facility] Instructions For Patient: Mo nthly Self Breast Exam Last Documented On 4 1:22PM ; [facility] Recommend diet and exercise at least 30 min three times per week Last Documented On 4 1:22PM ; [facility] Intervention and counseling on cessation of tobacco use Last Documented On 1 2:14PM ; [facility] Instructions for patient Last Documented On 1 6:14PM ; [facility] Intervention and counseling on cessation of tobacco use : Patient recieved smoking cessation handout Last Documented On 1 5:21PM ; [facility] Maintain a healthy diet Last Documented On 0 2:56PM ; [facility] Lose weight Last Documented On 0 2:56PM ; [facility] Go to the emergency room if condition worsens Last Documented On 7 3:36PM ; [facility] Instructions for patient Last Documented On 6 5:25PM ; [facility] Intervention and counseling on cessation of tobacco use Last Documented On 6 5:25PM ; [facility] Lose weight Last Documented On 6 3:16PM ; [facility] Weight loss advised Last Documented On 6 3:16PM ; [facility] Instructions for patient : B reast Self Exam discussed Last Documented On 5 1:20PM ; [facility] Education and Decision Aids were provided during visit for: Patient Education: Daily flaco cium and vitamin D Last Documented On 4 1:22PM ; [facility] Discussed preventing falls Last Documented On 0 2:56PM ; [facility] Patient education about a pr oper diet Last Documented On 0 2:56PM ; [facility] Patient education about regu lar dental care Last Documented On 0 2:56PM ; [facility] Patient education about diab etes and discussed ABCs of diabetic therapy and goals Last Documented On 0 2:56PM ; [facility] Patient education about a ho tn blood glucose monitor with instructions to bring monitor to each visit Last Documented On 0 2:56PM ; [facility] Dietary counseling pertainin g to diabetes mellitus Last Documented On 0 2:56PM ; [facility] Patient education about diab etic foot care Last Documented On 0 2:56PM ; [facility] Inquiry and counseling about medication administration and compliance Last Documented On 0 2:56PM ; [facility] Patient goals discussed Last Documented On 0 2:56PM ; [facility] The patient's goal is to brandon t the blood sugars and bring in the results to each visit Last Documented On 0 2:56PM ; [facility] Parent education about immun izations Discussed: ~Risks/Benefits of vaccine components discussed ~Discussed possible side effects of each component and when to call the office. ~ Last Documented On 8 5:54PM ; [facility] Parent education about immun izations VIS# influenza 10/14/14 ~Discussed: ~Risks/Benefits of vaccine components discussed ~Discussed possible side effects of each component and when to call the office Last Documented On 8 5:54PM ; [facility] Patient education about anti biotics: need to finish even if feeling better Last Documented On 7 3:36PM ; [facility] STD screening offered and de clined Last Documented On 5 1:20PM ; [facility] Bone Mineral Density Screeni ng guidelines reviewed Last Documented On 5 1:20PM ; [facility] Colonoscopy screening guidel jenifer discussed Last Documented On 5 1:20PM ; [facility] Medical Equipment - Implanted Devices Includes: Current and historical Devices No Medical Equipment Recorded Medications Includes: Current and historical Medications Current Medications (continue as prescribed) Diflucan 150 MG Oral Tablet 08/14/2023 Provider: TOM LILLY M.D. Diagnosis: One tablet daily Last Documented On 08/14/2023 11:36AM By ИВАН LILLY MD ; [facility] Sodium Bicarbonate 650 MG Oral Tablet 08/13/2023 Pro vider: Diagnosis: Last Documented On 08/13/2023 11:26AM By Marques MAGDALENO ; [facility] diazePAM 10 MG Oral Tablet 08/11/2023 Provider: TOM LILLY M.D. Diagnosis: Generalized anxi ety disorder TAKE 1 TABLET BY MOUTH THREE TIMES DAILY Last Documented On 08/11/2023 8:59AM By ИВАН LILLY MD ; [facility] amLODIPine Besylate 10 MG Oral Tablet 08/10/2023 Provider: TOM LILLY M.D. Diagnosis: Essential (prima ry) hypertension TAKE 1 TABLET BY MOUTH EVERY DAY Last Documented On 08/10/2023 9:13PM By ИВАН LILLY MD ; [facility] Jardiance 25 MG Oral Tablet 08/10/2023 Provider: TOM LILLY M.D. Diagnosis: Type 2 diabetes mellitus with hyperglycemia One tablet daily Last Documented On 08/10/2023 9:13PM By ИВАН LILLY MD ; [facility] Torsemide 10 MG Oral Tablet 08/09/2023 Provider: VIRGILIO SAENZ MD Diagnosis: Last Documented On 08/13/2023 11:26AM By Marques Peters Jose ; [facility] metOLazone 2.5 MG Oral Tablet 08/08/2023 Provider: HARPER FISHER MD Diagnosis: Last Documented On 08/13/2023 11:26AM By Marques MAGDALENO ; [facility] BD Pen Needle Mini U/F 31G X 5 MM Miscellaneous 08/07/2023 Provider: TOM Diaz Diagnosis: Type 2 diabetes mellitus without complications as directed Last Documented On 08/07/2023 11:48AM By ИВАН LILLY MD ; [facility] Basaglar KwikPen 100 UNIT/ML Subcutaneous Solution Pen-injector 07/31/2023 Provider: TOM Ma Diagnosis: 40 u at night Last Documented On 4 8:36AM By TRINH TEJADA ; [facility] FeroSul 325 (65 Fe) MG Oral Tablet 07/31/2023 Provid er: Diagnosis: Last Documented On 4 8:36AM By TRINH TEJADA ; [facility] HumaLOG KwikPen 100 UNIT/ML Subcutaneous Solution Pen-injector 07/28/2023 Provider: TOM Ma Diagnosis: 14 u with meals Last Documented On 4 8:36AM By TRINH TEJADA ; [facility] Folic Acid 1 MG Oral Tablet 05/19/2023 Provider: TOM LILLY M.D. Diagnosis: Deficiency of ot her specified B group vitamins One tablet daily Last Documented On 4 8:36AM By TRINH TEJADA ; [facility] Dexcom G6 Transmitter Miscellaneous 03/03/2023 Provider: TOM LILLY M.D. Diagnosis: Type 2 diabetes mellitus with hyperglycemia USE DIRECTED TO CHECK BLOOD SUGAR Last Documented On 4 8:36AM By TRINH TEJADA ; [facility] Veltassa 8.4 GM Oral Packet 12/10/2022 Provider: Diagnosis: once daily Last Documented On 4 8:36AM By TRINH TEJADA ; [facility] Aspirin Adult Low Dose 81 MG Oral Tablet Delayed Relea se 12/10/2022 Provider: Diagnosis: Last Documented On 4 8:36AM By TRINH TEJADA ; [facility] Global Ease Inject Pen Needl es 31G X 5 MM Miscellaneous 11/08/2022 Provider: TONY [place] Diagnosis: DIRECTED TEST THREE TIMES DAILY Last Documented On 4 8:36AM By TRINH TEJADA ; [facility] Vitamin D3 125 MCG (5000 UT) Oral Capsule 10/09/2022 Provider: TOM LILLY M.D. Diagnosis: Vitamin D defici ency, unspecified One tablet daily Last Documented On 4 8:36AM By TRINH TEJADA ; [facility] Vitamin B12 1000 MCG Oral Tablet 10/09/2022 Provider: TOM LILLY M.D. Diagnosis: Deficiency of ot her specified B group vitamins One tablet daily Last Documented On 4 8:36AM By TRINH TEJADA ; [facility] Past Medications on file Sodium Bicarbonate 650 MG Oral Tablet 07/31/2023 - 07/2023 Provider: Diagnosis: Last Documented On 08/13/2023 1:29PM By ИВАН LILLY MD ; [facility] Lantus 100 UNIT/ML Subcutaneous Solution 07/30/2023 - 07/31/2023 Provider: TOM LILLY M.D. Diagnosis: Type 2 diabetes mellitus without complications 40 u at hs Last Documented On 4 11:38AM By TRINH [facility] ; [facility] Lantus SoloStar 100 UNIT/ML Subcutaneous Solution Pen-injector 07/28/2023 - 07/31/2023 Provider: TOM LILLY M.D. Diagnosis: 40 u at hs Last Documented On 4 11:38AM By TRINH HANSEN [facility] ; [facility] Amoxicillin-Pot Clavulanate 875-125 MG Oral Tablet 07/26/2023 - 08/13/2023 Provider: NONI Gardenr [facility] Diagnosis: Last Documented On 08/13/2023 11:21AM By ИВАН LILLY MD ; [facility] diazePAM 10 MG Oral Tablet 07/14/2023 - 08/11/2023 Provider: TOM LILLY M.D. Diagnosis: Generalized anxi ety disorder TAKE 1 TABLET BY MOUTH THREE TIMES DAILY Last Documented On 08/11/2023 8:55AM By ИВАН LILLY MD ; [facility] Carvedilol 25 MG Oral Tablet 07/01/2023 - 09/29/2023 Provider: TOM LILLY M.D. Diagnosis: Essential (prima ry) hypertension TAKE 1 TABLET BY MOUTH TWICE DAILY Last Documented On 4 8:36AM [facility] Carvedilol 25 MG Oral Tablet 06/29/2023 - 07/01/2023 Provider: TOM LILLY M.D. Diagnosis: Essential (prima ry) hypertension TAKE 1 TABLET BY MOUTH TWICE DAILY Last Documented On 07/01/2023 9:45AM By Marques MAGDALENO ; [facility] Diflucan 100 MG Oral Tablet 06/19/2023 - 07/14/2023 Pr ovider: TOM LILLY M.D. Diagnosis: One tablet daily Last Documented On 07/14/2023 2:41PM By ИВАН LILLY MD ; [facility] diazePAM 10 MG Oral Tablet 06/16/2023 - 07/14/2023 Provider: TOM LILLY M.D. Diagnosis: Generalized anxi ety disorder TAKE 1 TABLET BY MOUTH THREE TIMES DAILY Last Documented On 07/14/2023 9:19AM By ИВАН LILLY MD ; [facility] Levemir FlexPen 100 UNIT/ML Subcutaneous Solution Pen-injector 06/15/2023 - 07/31/2023 Provider: TOM LILLY M.D. Diagnosis: Type 2 diabetes mellitus with hyperglycemia 30 u at night Last Documented On 11:38AM By TRINH [facility] ; [facility] Jardiance 25 MG Oral Tablet 05/21/2023 - 08/10/2023 Provider: TOM LILLY M.D. Diagnosis: Type 2 diabetes mellitus with hyperglycemia One tablet daily Last Documented On 08/10/2023 9:05PM By ИВАН LILLY MD ; [facility] Irbesartan 300 MG Oral Tablet 05/21/2023 - 07/31/2023 Provider: TOM LILLY M.D. Diagnosis: Essential (prima ry) hypertension TAKE 1 TABLET BY MOUTH EVERY DAY Last Documented On 11:20AM By Maya MAGDALENO ; [facility] diazePAM 10 MG Oral Tablet 05/19/2023 - 06/16/2023 Provider: TOM LILLY M.D. Diagnosis: Generalized anxi ety disorder TAKE 1 TABLET BY MOUTH THREE TIMES DAILY Last Documented On 06/16/2023 9:47AM By ИВАН LILLY MD ; [facility] Carvedilol 25 MG Oral Tablet 05/19/2023 - 06/29/2023 Provider: TOM LILLY M.D. Diagnosis: Essential (prima ry) hypertension TAKE 1 TABLET BY MOUTH TWICE DAILY Last Documented On 06/29/2023 7:28PM By ИВАН LILLY MD ; [facility] diazePAM 10 MG Oral Tablet 04/21/2023 - 05/19/2023 Provider: TOM LILLY M.D. Diagnosis: Generalized anxi ety disorder TAKE 1 TABLET BY MOUTH THREE TIMES DAILY Last Documented On 05/19/2023 11:03AM By ИВАН LILLY MD ; [facility] amLODIPine Besylate 10 MG Oral Tablet 04/11/2023 - 08/10/2023 Provider: TOM LILLY M.D. Diagnosis: Essential (prima ry) hypertension TAKE 1 TABLET BY MOUTH EVERY DAY Last Documented On 08/10/2023 9:05PM By ИВАН LILLY MD ; [facility] hydrALAZINE HCl 10 MG Oral Tablet 04/02/2023 - 07/31/2023 Provider: TOM LILLY M.D. Diagnosis: Essential (prima ry) hypertension One tablet twice a day Last Documented On 11:20AM By Maya MAGDALENO ; [facility] diazePAM 10 MG Oral Tablet 03/24/2023 - 04/21/2023 Provider: TOM LILLY M.D. Diagnosis: Generalized anxi ety disorder TAKE 1 TABLET BY MOUTH THREE TIMES DAILY Last Documented On 04/21/2023 9:08AM By ИВАН LILLY MD ; [facility] Carvedilol 25 MG Oral Tablet 03/04/2023 - 05/19/2023 Provider: TOM LILLY M.D. Diagnosis: Essential (prima ry) hypertension TAKE 1 TABLET BY MOUTH TWICE DAILY Last Documented On 05/19/2023 11:02AM By ИВАН LILLY MD ; [facility] Irbesartan 300 MG Oral Tablet 02/24/2023 - 05/21/2023 Provider: TOM LILLY M.D. Diagnosis: Essential (prima ry) hypertension TAKE 1 TABLET BY MOUTH EVERY DAY Last Documented On 05/21/2023 9:41AM By ИВАН LILLY MD ; [facility] diazePAM 10 MG Oral Tablet 02/24/2023 - 03/24/2023 Provider: TOM LILLY M.D. Diagnosis: Generalized anxi ety disorder TAKE 1 TABLET BY MOUTH THREE TIMES DAILY Last Documented On 03/24/2023 10:50AM By ИВАН LILLY MD ; [facility] diazePAM 10 MG Oral Tablet 01/27/2023 - 02/24/2023 Provider: TOM LILLY M.D. Diagnosis: Generalized anxi ety disorder TAKE 1 TABLET BY MOUTH THREE TIMES DAILY Last Documented On 02/24/2023 9:01AM By ИВАН LILLY MD ; [facility] amLODIPine Besylate 10 MG Oral Tablet 01/23/2023 - 04/11/2023 Provider: TOM LILLY M.D. Diagnosis: Essential (prima ry) hypertension TAKE 1 TABLET BY MOUTH EVERY DAY Last Documented On 04/11/2023 11:18AM By ИВАН LILLY MD ; [facility] diazePAM 10 MG Oral Tablet 12/30/2022 - 01/27/2023 Provider: TOM LILLY M.D. Diagnosis: Generalized anxi ety disorder TAKE 1 TABLET BY MOUTH THREE TIMES DAILY Last Documented On 01/27/2023 8:54AM By ИВАН LILLY MD ; [facility] Kerendia 10 MG Oral Tablet 12/10/2022 - 07/31/2023 Pro vider: Diagnosis: once daily Last Documented On 11:39AM By TRINH [facility] ; [facility] Citracal Petites/Vitamin D 2 00-6.25 MG-MCG Oral Tablet 12/10/2022 - 12/10/2022 Provider: Diagnosis: Last Documented On 12/10/2022 5:15PM By ИВАН LILLY MD ; [facility] cloNIDine 0.1 MG/24HR Transdermal Patch Weekly 12/10/2022 - 01/08/2023 Provider: TOM LILLY M.D. Diagnosis: Essential (prima ry) hypertension 1 ptach a week Last Documented On 01/08/2023 5:18PM By ИВАН LILLY MD ; [facility] Torsemide 5 MG Oral Tablet 12/09/2022 - 08/13/2023 Pro vider: TOM LILLY M.D. Diagnosis: TAKE ONE TABLET DAILY Last Documented On 08/13/2023 1:29PM By ИВАН LILLY MD ; [facility] diazePAM 10 MG Oral Tablet 12/02/2022 - 12/30/2022 Provider: TOM LILLY M.D. Diagnosis: Generalized anxi ety disorder TAKE 1 TABLET BY MOUTH THREE TIMES DAILY Last Documented On 12/30/2022 8:53AM By ИВАН LILLY MD ; [facility] Irbesartan 300 MG Oral Tablet 11/18/2022 - 02/24/2023 Provider: TOM LILLY M.D. Diagnosis: Essential (prima ry) hypertension TAKE 1 TABLET BY MOUTH EVERY DAY Last Documented On 02/24/2023 11:50AM By ИВАН LILLY MD ; [facility] diazePAM 10 MG Oral Tablet 11/04/2022 - 12/02/2022 Provider: TOM LILLY M.D. Diagnosis: Generalized anxi ety disorder TAKE 1 TABLET BY MOUTH THREE TIMES DAILY Last Documented On 12/02/2022 8:50AM By ИВАН LILLY MD ; [facility] Levemir FlexPen 100 UNIT/ML Subcutaneous Solution Pen-injector 10/31/2022 - 06/15/2023 Provider: TOM LILLY M.D. Diagnosis: Type 2 diabetes mellitus with hyperglycemia 15 - 30 u at night Last Documented On 06/15/2023 8:29PM By ИВАН LILLY MD ; [facility] guaiFENesin-Codeine 100-10 MG/5ML Oral Solution 10/31/2022 - 12/10/2022 Provider: TOM LILLY M.D. Diagnosis: as directed 10 ml 4 x a day as needed Last Documented On 12/10/2022 4:57PM By ИВАН LILLY MD ; [facility] Albuterol Sulfate HFA 108 (90 Base) MCG/ACT Inhalation Aerosol Solution 10/30/2022 - 12/10/2022 Provider: FLORINA DARDEN Diagnosis: Acute bronchitis , unspecified as directed 2 puffs inhaled q4-6 hours prn Last Documented On 12/10/2022 5:15PM By ИВАН LILLY MD ; [facility] Azithromycin 250 MG Oral Tablet 10/30/2022 - 12/10/2022 Provider: FLORINA DARDEN Diagnosis: Acute bronchitis , unspecified as directed take 2 tab po qd for 1 day then take 1 tab po qd for 4 days Last Documented On 12/10/2022 4:57PM By ИВАН LILLY MD ; [facility] Carvedilol 25 MG Oral Tablet 10/09/2022 - 03/04/2023 Provider: TOM LILLY M.D. Diagnosis: Essential (prima ry) hypertension One tablet twice a day Last Documented On 03/04/2023 10:18AM By ИВАН LILLY MD ; [facility] Ozempic (1 MG/DOSE) 4 MG/3ML Subcutaneous Solution Pen-injector 10/09/2022 - 12/10/2022 Provider: TOM LILLY M.D. Diagnosis: Type 2 diabetes mellitus with hyperglycemia 1 mg injection once a week Last Documented On 12/10/2022 5:15PM By ИВАН LILLY MD ; [facility] Folic Acid 1 MG Oral Tablet 10/09/2022 - 05/19/2023 Provider: TOM LILLY M.D. Diagnosis: Deficiency of ot her specified B group vitamins One tablet daily Last Documented On 05/19/2023 11:06AM By ИВАН LILLY MD ; [facility] amLODIPine Besylate 10 MG Oral Tablet 10/07/2022 - 01/23/2023 Provider: TOM LILLY M.D. Diagnosis: Essential (prima ry) hypertension TAKE 1 TABLET BY MOUTH EVERY DAY Last Documented On 01/23/2023 2:57PM By ИВАН LILLY MD ; [facility] diazePAM 10 MG Oral Tablet 10/07/2022 - 11/04/2022 Provider: TOM LILLY M.D. Diagnosis: Generalized anxi ety disorder TAKE 1 TABLET BY MOUTH THREE TIMES DAILY Last Documented On 11/04/2022 8:56AM By ИВАН LILLY MD ; [facility] Jardiance 25 MG Oral Tablet 10/07/2022 - 05/21/2023 Provider: TOM LILLY M.D. Diagnosis: Type 2 diabetes mellitus with hyperglycemia One tablet daily Last Documented On 05/21/2023 9:49AM By ИВАН LILLY MD ; [facility] Fluconazole 150 MG Oral Tablet 10/03/2022 - 10/31/2022 Provider: TOM LILLY M.D. Diagnosis: Acute candidiasi s of vulva and vagina 1 tablet today, repeat in 72 hours is symptoms are not resolved. Last Documented On 10/31/2022 5:18PM By ИВАН LILLY MD ; [facility] diazePAM 10 MG Oral Tablet 09/09/2022 - 10/07/2022 Provider: TOM LILLY M.D. Diagnosis: Generalized anxi ety disorder TAKE 1 TABLET BY MOUTH THREE TIMES DAILY Last Documented On 10/07/2022 9:11AM By ИВАН LILLY MD ; [facility] Carvedilol 12.5 MG Oral Tablet 09/05/2022 - 10/31/2022 Provider: Diagnosis: One tablet twice a day Last Documented On 10/31/2022 5:17PM By ИВАН LILLY MD ; [facility] Torsemide 5 MG Oral Tablet 09/05/2022 - 10/09/2022 Provider: TOM LILLY M.D. Diagnosis: Essential (prima ry) hypertension One tablet daily Last Documented On 10/09/2022 4:49PM By ИВАН LILLY MD ; [facility] Jardiance 25 MG Oral Tablet 09/05/2022 - 10/07/2022 Provider: TOM LILLY M.D. Diagnosis: Type 2 diabetes mellitus with hyperglycemia One tablet daily Last Documented On 10/07/2022 9:10AM By ИВАН LILLY MD ; [facility] diazePAM 10 MG Oral Tablet 08/13/2022 - 09/09/2022 Provider: TOM LILLY M.D. Diagnosis: Generalized anxi ety disorder TAKE 1 TABLET BY MOUTH THREE TIMES DAILY Last Documented On 09/09/2022 8:48AM By ИВАН LILLY MD ; [facility] Irbesartan 300 MG Oral Tablet 08/12/2022 - 11/18/2022 Provider: TOM LILLY M.D. Diagnosis: Essential (prima ry) hypertension TAKE 1 TABLET BY MOUTH EVERY DAY Last Documented On 11/18/2022 9:48AM By ИВАН LILLY MD ; [facility] Dexcom G6 Sensor Miscellaneous 08/07/2022 - 02/03/2023 Provider: TOM LILLY M.D. Diagnosis: Type 2 diabetes mellitus with hyperglycemia change every 10 days as directedDX E11.65 Last Documented On 1:21PM By NIKOLAI MAGDALENO ; [facility] Dexcom G6 Sensor Miscellaneous 08/07/2022 - 08/07/2022 Provider: TOM LILLY M.D. Diagnosis: Type 2 diabetes mellitus with hyperglycemia DIRECTED Last Documented On 1:20PM By NIKOLAI JIN A ; [facility] Dexcom G6 Sensor Miscellaneous 08/02/2022 - 08/07/2022 Provider: TOM LILLY M.D. Diagnosis: Type 2 diabetes mellitus with hyperglycemia DIRECTED Last Documented On 08/07/2022 1:02PM By Marques Peters A ; [facility] Fluconazole 150 MG Oral Tablet 07/31/2022 - 10/03/2022 Provider: CHUY MARTINEZ [facility] Diagnosis: Acute candidiasi s of vulva and vagina 1 tablet today, repeat in 72 hours is symptoms are not resolved. Last Documented On 10/03/2022 9:22AM By ИВАН LILLY MD ; [facility] diazePAM 10 MG Oral Tablet 07/16/2022 - 08/13/2022 Provider: TOM LILLY M.D. Diagnosis: Generalized anxi ety disorder TAKE 1 TABLET BY MOUTH THREE TIMES DAILY Last Documented On 08/13/2022 9:14AM By ИВАН LILLY MD ; [facility] Ozempic (0.25 or 0.5 MG/DOSE) 2 MG/1.5ML Subcutaneous Solution Pen-injector 07/15/2022 - 10/31/2022 Provider: TOM LILLY M.D. Diagnosis: Type 2 diabetes mellitus with hyperglycemia INJECT 0.5MG ONCE WEEKLY Last Documented On 10/31/2022 5:18PM By ИВАН LILLY MD ; [facility] amLODIPine Besylate 10 MG Oral Tablet 07/15/2022 - 10/07/2022 Provider: TOM LILLY M.D. Diagnosis: Essential (prima ry) hypertension TAKE 1 TABLET BY MOUTH EVERY DAY Last Documented On 10/07/2022 9:10AM By ИВАН LILLY MD ; [facility] diazePAM 10 MG Oral Tablet 06/18/2022 - 07/16/2022 Provider: TOM LILLY M.D. Diagnosis: Generalized anxi ety disorder TAKE 1 TABLET BY MOUTH THREE TIMES DAILY Last Documented On 07/16/2022 9:55AM By ИВАН LILLY MD ; [facility] Diflucan 150 MG Oral Tablet 06/16/2022 - 09/05/2022 Pr ovider: TOM LILLY M.D. Diagnosis: One tablet daily Last Documented On 09/05/2022 4:40PM By ИВАН LILLY MD ; [facility] diazePAM 10 MG Oral Tablet 05/21/2022 - 06/18/2022 Provider: TOM LILLY M.D. Diagnosis: Generalized anxi ety disorder TAKE 1 TABLET BY MOUTH THREE TIMES DAILY. Last Documented On 06/18/2022 5:28PM By ИВАН LILLY MD ; [facility] Ozempic (0.25 or 0.5 MG/DOSE) 2 MG/3ML Subcutaneous Solution Pen-injector 05/16/2022 - 07/15/2022 Provider: TOM LILLY M.D. Diagnosis: Type 2 diabetes mellitus with hyperglycemia 0.5 mg once a week Last Documented On 07/15/2022 1:58PM By ИВАН LILLY MD ; [facility] Bactrim DS 800-160 MG Oral Tablet 05/16/2022 - 07/10/2022 Provider: TOM LILLY M.D. Diagnosis: One tablet twice a day Last Documented On 07/10/2022 4:26PM By ИВАН LILLY MD ; [facility] Irbesartan 300 MG Oral Tablet 05/07/2022 - 08/12/2022 Provider: TOM LILLY M.D. Diagnosis: Essential (prima ry) hypertension TAKE 1 TABLET BY MOUTH EVERY DAY Last Documented On 08/12/2022 10:02AM By ИВАН LILLY MD ; [facility] Dexcom G6 Transmitter Miscellaneous 04/27/2022 - 03/03/2023 Provider: TOM LILLY M.D. Diagnosis: Type 2 diabetes mellitus with hyperglycemia USE DIRECTED TO CHECK BLOOD SUGAR Last Documented On 03/03/2023 6:02PM By ИВАН LILLY MD ; [facility] diazePAM 10 MG Oral Tablet 04/23/2022 - 05/21/2022 Provider: TOM LILLY M.D. Diagnosis: Generalized anxi ety disorder TAKE 1 TABLET BY MOUTH THREE TIMES DAILYNeed Office Visit. Last Documented On 05/21/2022 9:44AM By ИВАН LILLY MD ; [facility] Diflucan 150 MG Oral Tablet 04/12/2022 - 06/16/2022 Pr ovider: TOM LILLY M.D. Diagnosis: One tablet daily Last Documented On 06/16/2022 9:59PM By ИВАН LILLY MD ; [facility] diazePAM 10 MG Oral Tablet 03/26/2022 - 04/23/2022 Provider: TOM LILLY M.D. Diagnosis: Generalized anxi ety disorder TAKE ONE TABLET BY MOUTH THREE TIMES A DAY Last Documented On 04/23/2022 9:11AM By ИВАН LILLY MD ; [facility] CVS Iron 325 (65 Fe) MG Oral Tablet 03/26/2022 - 06/08 Provider: Diagnosis: once a day Last Documented On 06/09/2023 4:59PM By ИВАН LILLY MD ; [facility] Vitamin B12 1000 MCG Oral Tablet 03/26/2022 - 04/2022 Provider: Diagnosis: Last Documented On 10/09/2022 5:18PM By ИВАН LILLY MD ; [facility] Jardiance 25 MG Oral Tablet 03/26/2022 - 09/05/2022 Pr ovider: Diagnosis: once a day Last Documented On 09/05/2022 4:56PM By ИВАН LILLY MD ; [facility] QC Vitamin D3 125 MCG (5000 UT) Oral Tablet 03/26/2022 - 03/26/2022 Provider: Diagnosis: once a week Last Documented On 03/26/2022 4:27PM By ИВАН LILLY MD ; [facility] amLODIPine Besylate 10 MG Oral Tablet 03/25/2022 - 07/15/2022 Provider: TOM LILLY M.D. Diagnosis: Essential (prima ry) hypertension TAKE 1 TABLET BY MOUTH EVERY DAY Last Documented On 07/15/2022 1:56PM By ИВАН LILLY MD ; [facility] diazePAM 10 MG Oral Tablet 02/26/2022 - 03/26/2022 Provider: TOM LILLY M.D. Diagnosis: Generalized anxi ety disorder TAKE ONE TABLET BY MOUTH THREE TIMES A DAY Last Documented On 03/26/2022 5:29PM By ИВАН LILLY MD ; [facility] Ultra Thin Lancets Miscellaneous 02/25/2022 - 05/16/2022 Provider: ANGELICA DARDEN Diagnosis: Type 2 diabetes mellitus with hyperglycemia check blood glucose 4 times daily Last Documented On 05/16/2022 5:20PM By ИВАН LILLY MD ; [facility] [employer]ocate Insulin Syringe 29G X 1/2 0.5 ML Miscellaneous 02/25/2022 - 05/16/2022 Provider: TOM LILLY M.D. Diagnosis: Type 2 diabetes mellitus with hyperglycemia as directed Last Documented On 05/16/2022 5:20PM By ИВАН LILLY MD ; [facility] BD Pen Needle Micro U/F 32G X 6 MM Miscellaneous 02/25/2022 - 05/16/2022 Provider: THAO LORENZO DO Diagnosis: Type 2 diabetes mellitus without complications as directed TEST TID Last Documented On 05/16/2022 5:20PM By ИВАН LILLY MD ; [facility] Lantus 100 UNIT/ML Subcutaneous Solution 02/25/2022 - 05/16/2022 Provider: TOM Hurley M.D. Diagnosis: INJECT 20 UNITS SUBCUTANEOUSLY DAILY Last Documented On 05/16/2022 5:20PM By ИВАН LILLY MD ; [facility] diazePAM 10 MG Oral Tablet 01/29/2022 - 02/26/2022 Provider: TOM LILLY M.D. Diagnosis: Generalized anxi ety disorder TAKE ONE TABLET BY MOUTH THREE TIMES A DAY Last Documented On 02/26/2022 9:06AM By ИВАН LILLY MD ; [facility] Chlorthalidone 50 MG Oral Tablet 01/29/2022 - 03/26/2022 Provider: TOM LILLY M.D. Diagnosis: Essential (prima ry) hypertension One tablet daily Last Documented On 03/26/2022 4:03PM By Marques MAGDALENO ; [facility] Dexcom G6 Transmitter Miscellaneous 01/11/2022 - 04/27/2022 Provider: TOM LILLY M.D. Diagnosis: Type 2 diabetes mellitus with hyperglycemia as directed. Last Documented On 04/27/2022 12:19PM By ИВАН LILLY MD ; [facility] diazePAM 10 MG Oral Tablet 01/01/2022 - 01/29/2022 Provider: TOM LILLY M.D. Diagnosis: Generalized anxi ety disorder TAKE ONE TABLET BY MOUTH THREE TIMES A DAY Last Documented On 01/29/2022 2:24PM By ИВАН LILLY MD ; [facility] amLODIPine Besylate 10 MG Oral Tablet 12/31/2021 - 03/25/2022 Provider: TOM LILLY M.D. Diagnosis: Essential (prima ry) hypertension TAKE 1 TABLET BY MOUTH EVERY DAY Last Documented On 03/25/2022 1:44PM By ИВАН LILLY MD ; [facility] Irbesartan 300 MG Oral Tablet 12/31/2021 - 05/07/2022 Provider: TOM LILLY M.D. Diagnosis: Essential (prima ry) hypertension TAKE 1 TABLET BY MOUTH EVERY DAY Last Documented On 05/07/2022 11:37AM By ИВАН LILLY MD ; [facility] Diflucan 150 MG Oral Tablet 12/24/2021 - 02/11/2022 Pr ovider: TOM LILLY M.D. Diagnosis: 1 tab a week Last Documented On 02/11/2022 5:01PM By ИВАН LILLY MD ; [facility] Dexcom G6 Stitch Bonding Machine Operator Device 12/21/2021 - 05/16/2022 Provider: TOM LILLY M.D. Diagnosis: Type 2 diabetes mellitus with hyperglycemia as directed Last Documented On 05/16/2022 5:20PM By ИВАН LILLY MD ; [facility] Dexcom G6 Sensor Miscellaneous 12/21/2021 - 08/02/2022 Provider: TOM LILLY M.D. Diagnosis: Type 2 diabetes mellitus with hyperglycemia as directed Last Documented On 08/02/2022 1:09PM By Marques MAGDALENO ; [facility] Dexcom G6 Transmitter Miscellaneous 12/21/2021 - 01/11/2022 Provider: TOM LILLY M.D. Diagnosis: Type 2 diabetes mellitus with hyperglycemia as directed Last Documented On 01/11/2022 9:03AM By Marques MAGDALENO ; [facility] diazePAM 10 MG Oral Tablet 12/04/2021 - 01/01/2022 Provider: TOM LILLY M.D. Diagnosis: Generalized anxi ety disorder TAKE ONE TABLET BY MOUTH THREE TIMES A DAY Last Documented On 01/01/2022 4:20PM By ИВАН LILLY MD ; [facility] Ozempic (0.25 or 0.5 MG/DOSE) 2 MG/1.5ML Subcutaneous Solution Pen-injector 12/03/2021 - 05/16/2022 Provider: TOM LILLY M.D. Diagnosis: Type 2 diabetes mellitus with hyperglycemia 0.25 sub q once a week Last Documented On 05/16/2022 4:27PM By ИВАН LILLY MD ; [facility] Ultra Thin Lancets Miscellaneous 12/03/2021 - 02/25/2022 Provider: ANGELICA DARDEN Diagnosis: Type 2 diabetes mellitus with hyperglycemia check blood glucose 4 times daily Last Documented On 2:34PM By Angelica DARDEN ; [facility] diazePAM 10 MG Oral Tablet 11/06/2021 - 12/04/2021 Provider: TOM LILLY M.D. Diagnosis: Generalized anxi ety disorder One tablet three times a day Last Documented On 12/04/2021 12:09PM By ИВАН LILLY MD ; [facility] Ozempic (0.25 or 0.5 MG/DOSE) 2 MG/1.5ML Subcutaneous Solution Pen-injector 11/01/2021 - 12/03/2021 Provider: TOM LILLY M.D. Diagnosis: Type 2 diabetes mellitus with hyperglycemia 0.25 sub q once a week Last Documented On 12/03/2021 1:27PM By ИВАН LILLY MD ; [facility] Chlorthalidone 50 MG Oral Tablet 11/01/2021 - 01/29/2022 Provider: TOM LILLY M.D. Diagnosis: Essential (prima ry) hypertension One tablet daily Last Documented On 01/29/2022 2:23PM By ИВАН LILLY MD ; [facility] diazePAM 10 MG Oral Tablet 10/09/2021 - 11/06/2021 Provider: TOM LILLY M.D. Diagnosis: Generalized anxi ety disorder One tablet three times a day Last Documented On 11/06/2021 1:35PM By ИВАН LILLY MD ; [facility] Irbesartan 300 MG Oral Tablet 10/08/2021 - 12/31/2021 Provider: TOM LILLY M.D. Diagnosis: Essential (prima ry) hypertension One tablet daily Last Documented On 12/31/2021 2:09PM By ИВАН LILLY MD ; [facility] amLODIPine Besylate 10 MG Or al Tablet 10/08/2021 - 12/31/2021 Provider: TOM LILLY M.D. Diagnosis: One tablet daily Last Documented On 12/31/2021 2:26PM By ИВАН LILLY MD ; [facility] Farxiga 10 MG Oral Tablet 09/27/2021 - 11/01/2021 Provider: TOM LILLY M.D. Diagnosis: Type 2 diabetes mellitus with hyperglycemia One tablet daily Last Documented On 11/01/2021 5:04PM By ИВАН LILLY MD ; [facility] diazePAM 10 MG Oral Tablet 09/11/2021 - 10/09/2021 Provider: TOM LILLY M.D. Diagnosis: Generalized anxi ety disorder One tablet three times a day Last Documented On 10/09/2021 1:32PM By ИВАН LILLY MD ; [facility] Irbesartan 300 MG Oral Tablet 09/10/2021 - 10/08/2021 Provider: TOM LILLY M.D. Diagnosis: Essential (prima ry) hypertension One tablet daily Last Documented On 10/08/2021 1:22PM By ИВАН LILLY MD ; [facility] Farxiga 10 MG Oral Tablet 08/16/2021 - 09/27/2021 Prov ider: TOM LILLY M.D. Diagnosis: One tablet daily Last Documented On 09/27/2021 5:29PM By ИВАН LILLY MD ; [facility] QC Vitamin D3 50 MCG (1999 UT) Oral Capsule 08/15/2021 - 10/31/2022 Provider: TOM LILLY M.D. Diagnosis: Vitamin D defici ency, unspecified 1 Capsule every morning Last Documented On 10/31/2022 5:18PM By ИВАН LILLY MD ; [facility] Invokana 300 MG Oral Tablet 08/15/2021 - 09/27/2021 Provider: TOM LILLY M.D. Diagnosis: Type 2 diabetes mellitus with hyperglycemia One tablet daily Last Documented On 09/27/2021 5:29PM By ИВАН LILLY MD ; [facility] Irbesartan 300 MG Oral Tablet 08/15/2021 - 09/10/2021 Provider: TOM LILLY M.D. Diagnosis: Essential (prima ry) hypertension One tablet daily Last Documented On 09/10/2021 8:27PM By ИВАН LILLY MD ; [facility] Chlorthalidone 25 MG Oral Tablet 08/15/2021 - 12/24/2021 Provider: TOM LILLY M.D. Diagnosis: Essential (prima ry) hypertension One tablet daily Last Documented On 12/24/2021 4:01PM By ИВАН LILLY MD ; [facility] diazePAM 10 MG Oral Tablet 08/14/2021 - 09/11/2021 Provider: TOM LILLY M.D. Diagnosis: Generalized anxi ety disorder One tablet three times a day Last Documented On 09/11/2021 8:56AM By ИВАН LILLY MD ; [facility] Invokana 100 MG Oral Tablet 07/18/2021 - 09/27/2021 Provider: TOM LILLY M.D. Diagnosis: Type 2 diabetes mellitus with hyperglycemia One tablet daily Last Documented On 09/27/2021 4:31PM By ИВАН LILLY MD ; [facility] Chlorthalidone 25 MG Oral Tablet 07/18/2021 - 08/15/2021 Provider: TOM LILLY M.D. Diagnosis: Essential (prima ry) hypertension One tablet daily Last Documented On 08/15/2021 5:15PM By ИВАН LILLY MD ; [facility] Irbesartan 150 MG Oral Tablet 07/18/2021 - 08/15/2021 Provider: TOM LILLY M.D. Diagnosis: Essential (prima ry) hypertension One tablet daily Last Documented On 08/15/2021 5:16PM By ИВАН LILLY MD ; [facility] diazePAM 10 MG Oral Tablet 07/17/2021 - 08/14/2021 Provider: TOM LILLY M.D. Diagnosis: Generalized anxi ety disorder One tablet three times a day Last Documented On 08/14/2021 11:51AM By ИВАН LILLY MD ; [facility] amLODIPine Besylate 10 MG Or al Tablet 07/10/2021 - 10/08/2021 Provider: TOM LILLY M.D. Diagnosis: One tablet daily Last Documented On 10/08/2021 1:22PM By ИВАН LILLY MD ; [facility] Insulin Lispro (1 Unit Dial) 100 UNIT/ML Subcutaneous Solution Pen-injector 06/20/2021 - 03/26/2022 Provider: TOM Hurley M.D. Diagnosis: INJECT 20 UNITS 3 TIMES A DA Y BY SUBCUTANEOUS ROUTE BEFORE MEALS FOR 30 DAYS. Last Documented On 03/26/2022 4:27PM By ИВАН LILLY MD ; [facility] diazePAM 10 MG Oral Tablet 06/18/2021 - 07/17/2021 Provider: TOM LILLY M.D. Diagnosis: Generalized anxi ety disorder One tablet three times a day Last Documented On 07/17/2021 9:04AM By ИВАН LILLY MD ; [facility] Irbesartan 150 MG Oral Tablet 06/18/2021 - 07/18/2021 Provider: TOM LILLY M.D. Diagnosis: Essential (prima ry) hypertension One tablet daily Last Documented On 07/18/2021 5:17PM By ИВАН LILLY MD ; [facility] diazePAM 10 MG Oral Tablet 05/21/2021 - 06/18/2021 Provider: TOM LILLY M.D. Diagnosis: Generalized anxi ety disorder One tablet three times a day Last Documented On 06/18/2021 8:49AM By ИВАН LILLY MD ; [facility] Irbesartan 150 MG Oral Tablet 05/21/2021 - 06/18/2021 Provider: TOM LILLY M.D. Diagnosis: Essential (prima ry) hypertension One tablet daily Last Documented On 06/18/2021 8:50AM By ИВАН LILLY MD ; [facility] Insulin Lispro (1 Unit Dial) 100 UNIT/ML Subcutaneous Solution Pen-injector 04/23/2021 - 06/20/2021 Provider: THAO LORENZO DO Diagnosis: INJECT 20 UNITS 3 TIMES A DA Y BY SUBCUTANEOUS ROUTE BEFORE MEALS FOR 30 DAYS. Last Documented On 06/20/2021 9:13AM By ИВАН LILLY MD ; [facility] diazePAM 10 MG Oral Tablet 04/20/2021 - 05/21/2021 Provider: EV GALINDO PA-C Diagnosis: Type 2 diabetes mellitus with hyperglycemia TAKE 1 TABLET BY MOUTH THREE TIMES DAILY Fill when due. Last Documented On 05/21/2021 5:30PM By ИВАН LILLY MD ; [facility] amLODIPine Besylate 10 MG Oral Tablet 04/06/2021 - 05/21/2021 Provider: EV GALINDO PA-C Diagnosis: Essential (prima ry) hypertension One tablet daily then d/c. Last Documented On 05/21/2021 5:32PM By ИВАН LILLY MD ; [facility] diazePAM 10 MG Oral Tablet 03/19/2021 - 04/20/2021 Provider: EV GALINDO PA-C Diagnosis: Type 2 diabetes mellitus with hyperglycemia One tablet three times a dayFill when due. Last Documented On 2 4:46PM By EV GALINDO PA-C ; [facility] Sulfamethoxazole-Trimethopri m 800-160 MG Oral Tablet 03/14/2021 - 05/21/2021 Provider: RENEA BENNETT COPPER ETCHER-C Diagnosis: Cellulitis of buttock One tablet twice a day Last Documented On 05/21/2021 3:57PM By Sharmin MAGDALENO ; [facility] amLODIPine Besylate 10 MG Oral Tablet 03/12/2021 - 04/06/2021 Provider: EV GALINDO PA-C Diagnosis: Essential (prima ry) hypertension One tablet daily then d/c. Last Documented On 2 3:16PM By EV GALINDO PA-C ; [facility] Lisinopril 20 MG Oral Tablet 03/06/2021 - 04/06/2021 Provider: TOM LILLY M.D. Diagnosis: Essential (prima ry) hypertension TAKE 1 TABLET BY MOUTH TWICE DAILY Last Documented On 3:15PM By EV GALINDO PA-C ; [facility] diazePAM 10 MG Oral Tablet 03/06/2021 - 03/19/2021 Provider: TOM LILLY M.D. Diagnosis: Type 2 diabetes mellitus with hyperglycemia One tablet three times a day Need Office Visit. Last Documented On 11:03AM By EV GALINDO PA-C ; [facility] BD Pen Needle Micro U/F 32G X 6 MM Miscellaneous 02/23/2021 - 02/23/2021 Provider: THAO LORENZO DO Diagnosis: Type 2 diabetes mellitus without complications as directed TEST TID Last Documented On 02/23/2021 3:06PM By Thao Lorenzo ; [facility] BD Pen Needle Micro U/F 32G X 6 MM Miscellaneous 02/22/2021 - 02/23/2021 Provider: Diagnosis: Last Documented On 02/23/2021 2:11PM By Sharmin MAGDALENO ; [facility] Lantus 100 UNIT/ML Subcutane ous Solution 02/05/2021 - 06/20/2021 Provider: THAO LORENZO DO Diagnosis: INJECT 20 UNITS SUBCUTANEOUSLY DAILY Last Documented On 06/20/2021 9:13AM By ИВАН LILLY MD ; [facility] Lantus SoloStar 100 UNIT/ML Subcutaneous Solution Pen-injector 02/05/2021 - 05/21/2021 Provider: THAO LORENZO DO Diagnosis: Inject 20 units subcutaneously daily Last Documented On 05/21/2021 3:57PM By Sharmin MAGDALENO ; [facility] diazePAM 10 MG Oral Tablet 02/05/2021 - 03/06/2021 Provider: THAO LORENZO DO Diagnosis: Type 2 diabetes mellitus with hyperglycemia TAKE 1 TABLET BY MOUTH THREE TIMES DAILY Last Documented On 03/06/2021 3:32PM By ИВАН LILLY MD ; [facility] amLODIPine Besylate 10 MG Oral Tablet 12/11/2020 - Provider: Diagnosis: Last Documented On 05/21/2021 3:57PM By Sharmin MAGDALENO ; [facility] diazePAM 10 MG Oral Tablet 12/11/2020 - 02/05/2021 Provider: ARLEY ALCANTAR MD Diagnosis: Type 2 diabetes mellitus with hyperglycemia TAKE 1 TABLET BY MOUTH THREE TIMES DAILY Last Documented On 02/05/2021 9:44AM By Thao Lorenzo ; [facility] Contour Next Test In Vitro Strip 11/13/2020 - 05/21/2021 Provider: ANGELICA SAEED COPPER ETCHER-C Diagnosis: USE TO CHECK AT LEAST FOUR TIMES DAILY Last Documented On 05/21/2021 3:57PM By Sharmin MAGDALENO ; [facility] Insulin Lispro (1 Unit Dial) 100 UNIT/ML Subcutaneous Solution Pen-injector 10/18/2020 - 04/23/2021 Provider: ARLEY WADE MD Diagnosis: INJECT 20 UNITS 3 TIMES A DA Y BY SUBCUTANEOUS ROUTE BEFORE MEALS FOR 30 DAYS. Last Documented On 04/23/2021 2:53PM By Thao Lorenzo ; [facility] Lisinopril 20 MG Oral Tablet 10/12/2020 - 03/06/2021 Provider: ARLEY ALCANTAR MD Diagnosis: Essential (prima ry) hypertension TAKE 1 TABLET BY MOUTH TWICE DAILY Last Documented On 03/06/2021 3:33PM By ИВАН LILLY MD ; [facility] diazePAM 10 MG Oral Tablet 06/04/2020 - 12/11/2020 Provider: ARLEY ALCANTAR MD Diagnosis: Type 2 diabetes mellitus with hyperglycemia TAKE 1 TABLET BY MOUTH THREE TIMES DAILY - SCHEDULE OFFICE FOLLOW UP PRIOR TO NEXT REFILL Last Documented On 12/11/2020 1:25PM By ARLEY ALCANTAR MD ; [facility] amLODIPine Besylate 10 MG Or al Tablet 05/31/2020 - 02/05/2021 Provider: ARLEY Zimmerman MD Diagnosis: TAKE 1 TABLET BY MOUTH DAILY Last Documented On 02/05/2021 9:25AM By Thao Lorenzo ; [facility] Contour Next Test In Vitro Strip 05/26/2020 - 01/09/20 Provider: Diagnosis: Last Documented On 02/02/2021 2:32PM By Zamzam Hand RMA ; [facility] Contour Next Test In Vitro Strip 05/26/2020 - 01/08/2021 Provider: ANGELICA SAEED COPPER ETCHER-C Diagnosis: 2 times daily Last Documented On 02/02/2021 2:33PM By Zamzam Hand RMA ; [facility] Farxiga 10 MG Oral Tablet 05/01/2020 - 01/08/2021 Provider: ANGELICA ARREAGA COPPER ETCHER-C Diagnosis: Type 2 diabetes mellitus with hyperglycemia TAKE 1 TABLET BY MOUTH DAILY Last Documented On 02/02/2021 2:36PM By Zamzam Hand RMA ; [facility] diazePAM 10 MG Oral Tablet 05/01/2020 - 06/04/2020 Provider: ARLEY ALCANTAR MD Diagnosis: Type 2 diabetes mellitus with hyperglycemia TAKE 1 TABLET BY MOUTH THREE TIMES DAILY Last Documented On 06/04/2020 9:02AM By ARLEY ALCANTAR MD ; [facility] Insulin Lispro 100 UNIT/ML Subcutaneous Solution Cartridge 03/29/2020 - 01/08/2021 Provider: ARLEY ALCANTAR MD Diagnosis: Type 2 diabetes mellitus with hyperglycemia INJECT 20 UNITS 3 TIMES A DA Y BY SUBCUTANEOUS ROUTE BEFORE MEALS FOR 30 DAYS. Last Documented On 02/02/2021 2:33PM By Zamzam Hand RMA ; [facility] Lisinopril 20 MG Oral Tablet 03/29/2020 - 10/12/2020 Provider: ARLEY ALCANTAR MD Diagnosis: Essential (prima ry) hypertension One tablet twice a day Last Documented On 10/12/2020 4:21PM By ARLEY ALCANTAR MD ; [facility] Lantus 100 UNIT/ML Subcutaneous Solution 03/29/2020 - 01/08/2021 Provider: JUAN MATHEWS COPPER ETCHER-C Diagnosis: Type 2 diabetes mellitus with hyperglycemia INJECT 20 UNITS SUBCUTANEOUSLY DAILY Last Documented On 02/02/2021 2:36PM By Zamzam Hand RMA ; [facility] diazePAM 10 MG Oral Tablet 02/29/2020 - 05/01/2020 Provider: ARLEY ALCANTAR MD Diagnosis: Type 2 diabetes mellitus with hyperglycemia TAKE 1 TABLET BY MOUTH THREE TIMES DAILY Last Documented On 05/01/2020 6:48PM By ARLEY ALCANTAR MD ; [facility] Ultra Thin Lancets Miscellaneous 02/25/2020 - 12/03/2021 Provider: ANGELICA DARDEN Diagnosis: Type 2 diabetes mellitus with hyperglycemia check blood glucose 4 times daily Last Documented On 2 12:18PM By Angelica DARDEN ; [facility] Contour Next Test In Vitro Strip 02/25/2020 - 01/08/2021 Provider: ANGELICA DARDEN Diagnosis: Type 2 diabetes mellitus without complications check blood glucose ay least 4 times daily Last Documented On 02/02/2021 2:33PM By Zamzam MAGDALENO ; [facility] Farxiga 10 MG Oral Tablet 02/24/2020 - 05/01/2020 Provider: ANGELICA DARDEN Diagnosis: Type 2 diabetes mellitus with hyperglycemia 1 capsule daily Last Documented On 1 3:48PM By Angelica DARDEN ; [facility] Furosemide 40 MG Oral Tablet 12/31/2019 - 10/19/2020 P rovider: ARLEY ALCANTAR MD Diagnosis: One tablet daily Last Documented On 10/19/2020 2:14PM By Natalie MAGDALENO ; [facility] diazePAM 10 MG Oral Tablet 12/02/2019 - 02/29/2020 Provider: ARLEY ALCANTAR MD Diagnosis: Type 2 diabetes mellitus with hyperglycemia TAKE 1 TABLET BY MOUTH THREE TIMES DAILY Last Documented On 02/29/2020 1:03PM By ARLEY ALCANTAR MD ; [facility] Dexcom G6 Sensor Miscellaneous 12/02/2019 - 12/01/2019 Provider: ARLEY ALCANTAR MD Diagnosis: Type 2 diabetes mellitus with hyperglycemia 1 sensor every 14 days Last Documented On 12/29/2019 4:24PM By ARLEY ALCANTAR MD ; [facility] Dexcom G6 Stitch Bonding Machine Operator Device 12/02/2019 - 02/22/2020 Provider: ARLEY ALCANTAR MD Diagnosis: Type 2 diabetes mellitus with hyperglycemia 1 hiv nurse device......MARK 9 9 months......dx [id number] Last Documented On 0 4:16PM By Angelica DARDEN ; [facility] Insulin Lispro 100 UNIT/ML Subcutaneous Solution Cartridge 09/11/2019 - 03/29/2020 Provider: ARLEY Zimmerman MD Diagnosis: INJECT 20 UNITS 3 TIMES A DA Y BY SUBCUTANEOUS ROUTE BEFORE MEALS FOR 30 DAYS. Last Documented On 03/29/2020 1:32PM By Natalie MAGDALENO ; [facility] Ferrous Sulfate 325 (65 Fe) MG Oral Tablet 08/13/2019 - 10/19/2020 Provider: ARLEY Zimmerman MD Diagnosis: One tablet twice a day. Take with orange juice Last Documented On 10/19/2020 2:14PM By Natalie MAGDALENO ; [facility] Lasix 40 MG Oral Tablet 08/13/2019 - 12/31/2019 Provid er: ARLEY ALCANTAR MD Diagnosis: as directed 1-2 tabs in AM Last Documented On 12/31/2019 6:06PM By ARLEY ALCANTAR MD ; [facility] Atorvastatin Calcium 10 MG Oral Tablet 08/13/2019 - 10/19/2020 Provider: RALEY Zimmerman MD Diagnosis: One tablet daily Last Documented On 10/19/2020 2:14PM By Natalie MAGDALENO ; [facility] Spironolactone 50 MG Oral Tablet 08/06/2019 - 11/24/2019 Provider: ARLEY ALCANTAR MD Diagnosis: Other disorders of vestibular function, bilateral TAKE 1 TABLET BY MOUTH DAILY Last Documented On 11/24/2019 4:08PM By [email or web address] ; [facility] diazePAM 10 MG Oral Tablet 08/06/2019 - 12/01/2019 Provider: ARLEY ALCANTAR MD Diagnosis: Type 2 diabetes mellitus with hyperglycemia TAKE 1 TABLET BY MOUTH THREE TIMES DAILY Last Documented On 12/02/2019 3:11PM By ARLEY ALCANTAR MD ; [facility] Glyxambi 10-5 MG Oral Tablet 08/06/2019 - 02/24/2020 Provider: ARLEY ALCANTAR MD Diagnosis: Type 2 diabetes mellitus with hyperglycemia One tablet daily Last Documented On 0 10:24AM By Angelica DARDEN ; [facility] Vitamin D (Ergocalciferol) 1.25 MG (46169 UT) Oral Capsule 08/06/2019 - 11/24/2019 Provider: ARLEY ALCANTAR MD Diagnosis: Vitamin D defici ency, unspecified 1 po qwk Last Documented On 11/24/2019 4:07PM By [email or web address] ; [facility] Lisinopril 20 MG Oral Tablet 08/06/2019 - 03/29/2020 Provider: ARLEY ALCANTAR MD Diagnosis: Essential (prima ry) hypertension One tablet twice a day Last Documented On 03/29/2020 1:33PM By Natalie MAGDALENO ; [facility] Lantus 100 UNIT/ML Subcutaneous Solution 08/06/2019 - 03/29/2020 Provider: ARLEY ALCANTAR MD Diagnosis: Type 2 diabetes mellitus with hyperglycemia as directed 20 units daily Last Documented On 10:25PM By Juan Mathews COPPER ETCHER-C ; [facility] Fluticasone Propionate 50 MCG/ACT Nasal Suspension 07/12/2019 - 10/19/2020 Provider: ARLEY ALCANTAR MD Diagnosis: Other disorders of vestibular function, bilateral 2 sprays each nostril daily Last Documented On 10/19/2020 2:15PM By Natalie MAGDALENO ; [facility] Spironolactone 50 MG Oral Tablet 07/12/2019 - 08/06/2019 Provider: ARLEY ALCANTAR MD Diagnosis: Other disorders of vestibular function, bilateral TAKE 1 TABLET BY MOUTH DAILY Last Documented On 08/06/2019 4:47PM By ARLEY ALCANTAR MD ; [facility] diazePAM 10 MG Oral Tablet 06/08/2019 - 08/06/2019 Provider: ARLEY ALCANTAR MD Diagnosis: Type 2 diabetes mellitus with hyperglycemia TAKE 1 TABLET BY MOUTH THREE TIMES DAILY Last Documented On 08/06/2019 4:47PM By ARLEY ALCANTAR MD ; [facility] amLODIPine Besylate 10 MG Or al Tablet 05/14/2019 - 05/31/2020 Provider: ARLEY Zimmerman MD Diagnosis: One tablet daily Last Documented On 05/31/2020 1:32PM By ARLEY ALCANTAR MD ; [facility] diazePAM 10 MG Oral Tablet 05/14/2019 - 06/08/2019 Provider: ARLEY ALCANTAR MD Diagnosis: Type 2 diabetes mellitus with hyperglycemia One tablet three times a day Last Documented On 06/08/2019 1:10PM By ARLEY ALCANTAR MD ; [facility] Advocate Insulin Syringe 29G X 1/2 0.5 ML Miscellaneous 04/07/2019 - 07/10/2021 Provider: ARLEY ALCANTAR MD Diagnosis: Type 2 diabetes mellitus with hyperglycemia use 1 daily for injection of lantus Last Documented On 07/10/2021 4:21PM By ИВАН LILLY MD ; [facility] diazePAM 10 MG Oral Tablet 04/07/2019 - 05/14/2019 Provider: ARLEY ALCANTAR MD Diagnosis: Type 2 diabetes mellitus with hyperglycemia 1/2 - 1 tab po tid Last Documented On 05/14/2019 1:14PM By ARLEY ALCANTAR MD ; [facility] Lantus 100 UNIT/ML Subcutaneous Solution 03/24/2019 - 08/06/2019 Provider: ARLEY ALCANTAR MD Diagnosis: Type 2 diabetes mellitus with hyperglycemia as directed 20 units daily Last Documented On 08/06/2019 4:47PM By ARLEY ALCANTAR MD ; [facility] Flonase Allergy Relief 50 MCG/ACT Nasal Suspension 03/24/2019 - 07/12/2019 Provider: ARLEY ALCANTAR MD Diagnosis: Other disorders of vestibular function, bilateral as directed 2 puff bid Last Documented On 0 12:05PM By ARLEY ALCANTAR MD ; [facility] Spironolactone 50 MG Oral Tablet 03/24/2019 - 07/12/2019 Provider: ARLEY ALCANTAR MD Diagnosis: Other disorders of vestibular function, bilateral One tablet daily Last Documented On 0 12:04PM By ARLEY ALCANTAR MD ; [facility] Fluticasone Propionate 50MCG/ACT Nasal Suspension 08/06/2017 - 03/13/2020 Provider: HARI GOLDSTEIN COPPER ETCHER-BC Diagnosis: Benign paroxysma l vertigo, bilateral 2 sprays each nostril in the morning Last Documented On 1 3:27PM By MARCO MAGDALENO ; [facility] Amoxicillin 500MG Oral Tablet 11/17/2016 - 03/13/2020 Provider: KRYSTYNA TELLEZ COPPER ETCHER-C Diagnosis: Otitis media, unspecified, left ear Take 2 tablets by mouth ever y 8 hours for 7 days. Last Documented On 1 3:26PM By MARCO VILLALOBOS [facility] ; [facility] Norvasc 10MG Oral Tablet 10/12/2016 - 01/08/2021 Provi zhen: Diagnosis: DAILY Last Documented On 02/02/2021 2:33PM By Zamzam Martel [facility] ; [facility] ValACYclovir HCl 500 MG Tablet 11/21/2015 - 08/06/2017 Provider: HARI GOLDSTEIN COPPER ETCHER-BC Diagnosis: Anogenital herpe sviral infection, unspecified One tablet three times a day Last Documented On 8 11:45AM By HARI GOLDSTEIN [facility] ; [facility] Mupirocin 2 % Ointment 11/21/2015 - 02/04/2018 Provider: HARI GOLDSTEIN [facility] Diagnosis: Local infection of the skin and subcutaneous tissue, unsp Apply twice a day to finger Last Documented On 02/04/2018 3:07PM By OSVALDO GOODE [facility] ; [facility] Vitamin D (Ergocalciferol) 73006 UNIT Capsule, conventional 07/17/2015 - 08/06/2019 Provider: CANDIS GONZALEZ MD Diagnosis: Vitamin D defici ency, unspecified 1 po qwk Last Documented On 08/06/2019 4:47PM By ARLEY ALCANTAR MD ; [facility] Lisinopril 20 MG Tablet 07/17/2015 - 08/06/2019 Provider: CANDIS GONZALEZ MD Diagnosis: Essential (prima ry) hypertension One tablet twice a day Last Documented On 08/06/2019 4:47PM By ARLEY ALCANTAR MD ; [facility] Glyxambi 10-5 MG Tablet 07/17/2015 - 08/06/2019 Provider: CANDIS GONZALEZ MD Diagnosis: Type 2 diabetes mellitus with hyperglycemia One tablet daily Last Documented On 08/06/2019 4:47PM By ARLEY ALCANTAR MD ; [facility] FreeStyle Lite Test Strip 07/17/2015 - 02/22/2020 Provider: CANDIS GONZALEZ MD Diagnosis: Type 2 diabetes mellitus with hyperglycemia ch 3xd Last Documented On 0 4:16PM By Angelica SCHAFER-Christian ; [facility] HumaLOG 100 UNIT/ML Solution 06/24/2015 - 11/24/2019 P rovider: Diagnosis: Last Documented On 11/24/2019 4:07PM By [email or web address] ; [facility] Meclizine HCl 12.5 MG Tablet 07/26/2014 - 11/01/2021 P rovider: Diagnosis: dosage unknown Last Documented On 11/01/2021 4:37PM By ИВАН LILLY MD ; [facility] Medications Administered Includes: Administered Medications in patient's chart No Administered Medications Recorded Results Includes: Results from 02/26/2024 through 02/25/2025 No Results Recorded For Specified Dates History of Present Illness History of Present Illness not supported for this document type No History of Present Illness Recorded Social History Description Last Updated DME in home: 08/13/2023 Last Documented On 4 1:34PM ; [facility] DME in home: wheelchair 08/13/2023 Last Documented On 4 1:34PM ; [facility] Soc Hx: works as [employer] er on disability. . No alcohol, drugs, tobacco, vaping. Diet: regular. Exercise: none 06/30/2023 Last Documented On 4 2:20PM ; [facility] A high-sugar diet 06/30/2023 Last Documented On 4 2:20PM ; [facility] Amount of sleep 06/30/2023 Last Documented On 4 2:20PM ; [facility] Current nonsmoker 06/30/2023 Last Documented On 4 2:20PM ; [facility] Diet needs improvement 06/30/2023 Last Documented On 4 2:20PM ; [facility] Eats breakfast regularly 06/30/2023 Last Documented On 4 2:20PM ; [facility] Exercising regularly 06/30/2023 Last Documented On 4 2:20PM ; [facility] Former smoker 06/30/2023 Last Documented On 4 2:20PM ; [facility] Frequency of meals 06/30/2023 Last Documented On 4 2:20PM ; [facility] Frequent high carbohydrate meals 024 Last Documented On 4 2:20PM ; [facility] Good exercise habits 06/30/2023 Last Documented On 4 2:20PM ; [facility] Lives with spouse 06/30/2023 Last Documented On 4 2:20PM ; [facility] Marital history 06/30/2023 Last Documented On 4 2:20PM ; [facility] Missing meals 06/30/2023 Last Documented On 4 2:20PM ; [facility] No caffeine use 06/30/2023 Last Documented On 4 2:20PM ; [facility] No consumption of alcohol 06/30/2023 Last Documented On 4 2:20PM ; [facility] No tobacco use 06/30/2023 Last Documented On 4 2:20PM ; [facility] No travel 06/30/2023 Last Documented On 4 2:20PM ; [facility] Non-smoker 06/30/2023 Last Documented On 4 2:20PM ; [facility] Not a current smoker 06/30/2023 Last Documented On 4 2:20PM ; [facility] Not using drugs 06/30/2023 Last Documented On 4 2:20PM ; [facility] Nutritional quality of diet 06/30/2023 Last Documented On 4 2:20PM ; [facility] 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 06/29 Last Documented On 4 2:20PM ; [facility] Sexually active 06/30/2023 Last Documented On 4 2:20PM ; [facility] Stopped smoking years ago 1996 4 Last Documented On 4 2:20PM ; [facility] Tobacco non-user 06/30/2023 Last Documented On 4 2:20PM ; [facility] Work history 06/30/2023 Last Documented On 4 2:20PM ; [facility] 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 Last Documented On 4 2:20PM ; [facility] Sexually active with 1 partners in the l ast year 06/30/2023 Last Documented On 4 2:20PM ; [facility] Currently 02/22/2020 Last Documented On 1 2:44PM ; [facility] No work-related circumstances 02/22/2020 Last Documented On 1 2:44PM ; [facility] Not using alcohol 02/22/2020 Last Documented On 1 2:44PM ; [facility] Smoking Status Unknown Procedures and Surgical History Surgical History Last Updated Prior surgery Csectionx3 05/21/2021 Last Documented On 2 5:39PM ; [facility] History of section 02/02/2021 Last Documented On 1 9:33AM ; [facility] History of tubal ligation 2002 5 Last Documented On 5 1:47PM ; [facility] Surgical / procedural history c section x 3 1991,1993, and 200207/26/2014 Last Documented On 5 1:47PM ; [facility] Medical History Includes: Medical History in patient's chart Description Last Updated Vaccine history 07/31/2023 Last Documented On 4 8:36AM ; [facility] LMP: 06/23/2023 06/30/2023 Last Documented On 4 2:20PM ; [facility] History of screening mammogram was perfo rmed 2021 -- at [facility] 06/30/2023 Last Documented On 4 2:20PM ; [facility] History of Pap smear done 2014 4 Last Documented On 4 2:20PM ; [facility] Systolic blood pressure 140 mmHg 023 Last Documented On 3 5:26PM ; [facility] Diastolic blood pressure 90 mmHg 022 Last Documented On 2 5:19PM ; [facility] Medication noncompliance 07/10/2021 Last Documented On 2 5:30PM ; [facility] Arthritis 05/21/2021 Last Documented On 2 5:39PM ; [facility] Currently wearing eyeglasses 05/21/2021 Last Documented On 2 5:39PM ; [facility] Diabetes 05/21/2021 Last Documented On 2 5:39PM ; [facility] Hypertension 05/21/2021 Last Documented On 2 5:39PM ; [facility] No. of Pregnancies: 3 05/21/2021 Last Documented On 2 5:39PM ; [facility] Contact with and (Suspected) exposure to COVID-19 03/14/2021 Last Documented On 2 6:12PM ; [facility] Date COVID symptoms started: 03/14/2021 Last Documented On 2 6:12PM ; [facility] A mammogram was performed 2019 1 Last Documented On 1 9:33AM ; [facility] A self-exam of the feet was performed Last Documented On 1 2:44PM ; [facility] Blood sugar was checked by the patient 1 04/24/2019 Last Documented On 1 2:44PM ; [facility] Diet noncompliance 02/22/2020 Last Documented On 1 2:44PM ; [facility] Home blood sugar check performed Last Documented On 1 2:44PM ; [facility] No recent insulin (hypoglycemic) reactio n 02/22/2020 Last Documented On 1 2:44PM ; [facility] Noncompliance with exercise program 02/07 Last Documented On 1 2:44PM ; [facility] Past medical history 02/22/2020 Last Documented On 1 2:44PM ; [facility] Urine protein was checked 02/22/2020 Last Documented On 1 2:44PM ; [facility] Surgeries: C-sections 1992,1 994,2003. 2014 admitted for extended migraine. ~Illnesses: diabetes, hypertension, OA, Herpes type 1, migraine, Vit D def 04/18/2019 Last Documented On 0 6:14PM ; [facility] History of essential hypertension 2015 Last Documented On 6 6:00PM ; [facility] History of type 2 diabetes mellitus 11/2015 Last Documented On 6 6:00PM ; [facility] History of arthritis 07/17/2015 Last Documented On 6 6:00PM ; [facility] History of diabetes mellitus 07/17/2015 Last Documented On 6 6:00PM ; [facility] History of hypertension 07/17/2015 Last Documented On 6 6:00PM ; [facility] Previous hospitalizations 07/17/2015 Last Documented On 6 6:00PM ; [facility] History of anxiety disorder NOS 07/27/19 15 Last Documented On 5 1:47PM ; [facility] section 07/26/2014 Last Documented On 5 1:47PM ; [facility] In monogamous relationship 07/26/2014 Last Documented On 5 1:47PM ; [facility] Contraception: btl 07/26/2014 Last Documented On 5 1:47PM ; [facility] 3 07/26/2014 Last Documented On 5 1:47PM ; [facility] Para 3 07/26/2014 Last Documented On 5 1:47PM ; [facility] Sexually active 07/26/2014 Last Documented On 5 1:47PM ; [facility] Family History Includes: Family History in patient's chart Description Last Updated Family history of malignant female breas t neoplasm P. GREAT AUNT 06/30/2023 Last Documented On 4 2:20PM ; [facility] Family history of malignant neoplasm of large intestine M GRANDFATHER 06/30/2023 Last Documented On 4 2:20PM ; [facility] 5 children 05/21/2021 Last Documented On 2 5:39PM ; [facility] Family history of Arthritis 05/21/2021 Last Documented On 2 5:39PM ; [facility] Family history of anxiety disorder NOS 1 04/04/2020 Last Documented On 1 9:33AM ; [facility] Family history of cancer Col on cancer - maternal granfather ~eye cancer - maternal grandmother 02/02/2021 Last Documented On 1 9:33AM ; [facility] Family history of diabetes mellitus 01/09 Last Documented On 1 9:33AM ; [facility] Family history of heart disease 02/03/20 21 Last Documented On 1 9:33AM ; [facility] Family history of migraine headache 01/09 Last Documented On 1 9:33AM ; [facility] Family history unchanged 08/24/2020 Last Documented On 1 6:17PM ; [facility] FMHx: PGF from lightnin g strike. PGM - DM, HTN, CT age 67. MGF - Alzheimer's 1986. MGM - eye cancer. Uncle - HTN, DM, Kidney failure. Uncle COPD. Mother: HTN, anxiety, COPD 04/18/2019 Last Documented On 0 6:14PM ; [facility] Maternal history of hypertension 016 Last Documented On 6 6:00PM ; [facility] Paternal grandfather's histo ry of malignant neoplasm of the large intestine 07/26/2014 Last Documented On 5 1:47PM ; [facility] Family history of hypertension 5 Last Documented On 5 1:47PM ; [facility] Paternal grandmother's histo ry of diabetes mellitus paternal aunt and uncle 07/26/2014 Last Documented On 5 1:47PM ; [facility] Paternal history of family history of he art disease 07/26/2014 Last Documented On 5 1:47PM ; [facility] Review of Systems Review of Systems not supported for this document type No Review of Systems Recorded Mental Status No Mental Status Recorded Functional Status No Functional Status Recorded Physical Exam Physical Exam not supported for this document type No Physical Exam Recorded Immunizations Includes: Immunizations in patient's chart Vaccine Dose # Date Site Reaction(s) Status Source COVID-19 Moderna 1 05/12/2020 Complete (Re ported) Patient Last Documented On 1 9:17AM ; [facility] COVID-19 Moderna 2 06/09/2020 Complete (Re ported) Patient Last Documented On 1 9:17AM ; [facility] Influenza (Quadrivalent)36 mo.& older PF 0.5ml (SD) 1 12/25/2016 Right Arm Complete (Repo rted) Patient Last Documented On 7 5:36PM ; [facility] Influenza (Quadrivalent)36 mo.& older PF 0.5ml (SD) 2 02/04/2018 Left Deltoid Complete (Administered) [facility] Last Documented On 8 5:51PM ; [facility] Influenza (Quadrivalent)36 mo.& older PF 0.5ml (SD) 3 01/05/2021 Left Deltoid Complete (R eported) Patient Last Documented On 1 2:34PM ; [facility] Allergies Includes: Active, inactive, and resolved Allergies Substance Type Reaction Onset Date Resolved Date Statu s Morphine Sulfate Allergy 07/26/2014 Ac tive Last Documented On 4 11:14AM ; [facility] Floxin Otic Allergy 07/26/2014 Active Last Documented On 4 11:14AM ; [facility] Farxiga Intolerance yeast vaginitis 12/24/2021 A ctive Last Documented On 4 11:14AM ; [facility] Demerol Allergy 07/26/2014 Active Last Documented On 4 11:14AM ; [facility] Cipro Allergy 07/26/2014 Active Last Documented On 4 11:14AM ; [facility] cephalexin Allergy 07/26/2014 Active Last Documented On 4 11:14AM ; [facility] Encounters Includes: Encounters from 02/26/2024 through 02/25/2025 Encounter Provider Location Date Check-In Time Check-Out Time Diagnosis [Patient Encounter] TOM LILLY M.D. 04/15/2024 08/13/2023 4:37PM 08/25/2023 11:59PM Insurance Includes: Active Insurance Policies Plan Name Member ID Group # Subscriber Relationship Effect reynaldo Dates 1 - [facility] [id number] FAIZAN Webster 03/10/2023 - Unknown 2 - MEDICARE PART A CLAIMS/NGS [id number] FAIZAN Webster Clinical Notes Includes: Signed Clinical Notes starting from 03/29/2022 No Clinical Notes Recorded
--- OUTSIDE RECORDS SUMMARY | 2025-02-25 08:43 | XMS_ITS ---
Care Plan - [facility] Created on: February 25, 2025 [place]AN [place] : 1975 Sex: Female Author Organization [facility] Address [address] [place] [address] Phone Care Team Providers Care Amusement Machine Mechanic Name Role Phone MAXX MEMBRENO, ИВАН Primary Care Provider [phone] MAXX Melgar, TOM Ac Unavailable [phone]
== END 2025-02-25 08:32 | disposition home or self-care (01) ==
DX: R93.89 Abnormal findings on diagnostic imaging of other specified body structures (principal)
CPT/HCPCS: 71250; 74176